=== PATIENT | female | born 1985 | race African-American/Black ===

== ENCOUNTER 2019-07-07 18:01 | Inpatient (IN) | payer OTHER ==
[~2019-07-07] VITALS: Ht 167.6 cm; Wt 68.6 kg
[~2019-07-07 18:01] MED LIST: ALBU8.5H6 INH; AMIT25TA PO; AMLO10TA8 PO; DICY10CA3 PO; GABA-585 PO; INSU100C4 SQ; INSU100V8 SQ; LEXAPRO20 MG PO; LISI-130 PO; LORA1TAB PO; NICO-479 BC; PANT40TA77 PO; POLY17PO29 PO; PROM25TA10 PO; TRAM50TA PO
[2019-07-07 18:51] LABS: BASO # 0.1 x10^3/uL (0.0-0.2); BASO % 1 % (0-3); EOS % 0 % (0-3); HEMATOCRIT 33.2 % (36.0-47.0); HEMOGLOBIN 11.3 g/dL (12.0-15.5); LYMPH # 1.3 x10^3/uL (1.0-4.8); LYMPH % 14 % (24-48); MEAN CORPUSCULAR HEMOGLOBIN 29 pg (25-35); MEAN CORPUSCULAR HGB CONC 34 g/dL (31-37); MEAN CORPUSCULAR VOLUME 86 fL (79-100); MONO # 0.3 x10^3/uL (0.0-1.1); MONO % 3 % (0-9); NEUT # 7.1 x10^3/uL (1.8-7.7); NEUT % 81 % (31-73); PLATELET COUNT 396 x10^3/uL (140-400); RED BLOOD COUNT 3.85 x10^6/uL (3.50-5.40); RED CELL DISTRIBUTION WIDTH 14.9 % (11.5-14.5); WHITE BLOOD COUNT 8.8 x10^3/uL (4.0-11.0)
[2019-07-07 18:59] LABS: PROTHROMBIN TIME PATIENT 13.3 SEC (11.7-14.0)
[2019-07-07] MEDS ORDERED: IV NORMAL SALINE 1000ML BAG 1,000 ML IV ONE ×2 (19:00→21:00)
[2019-07-07] MEDS ORDERED: PROCHLORPERAZINE 10 MG/2 ML VIAL. IV ONE (19:00)
[2019-07-07] MEDS ORDERED: fentaNYL PF VIAL 100 MCG/2 ML VIAL IV ONE (19:00)
[2019-07-07 19:02] LABS: PREG TEST PT QUAL NEGATIVE (NEG)
[2019-07-07 19:43] LABS: GASTRIC OB PAT POSITIVE (NEG)
[2019-07-07 19:52] LABS: BILIRUBIN,URINE NEGATIVE (NEG); CLARITY,URINE CLEAR; COLOR,URINE YELLOW; NITRITE,URINE NEGATIVE (NEG); PH,URINE 7.5; PROTEIN,URINE >=300 mg/dL (NEG-TRACE); UROBILINOGEN,URINE 0.2 mg/dL (0.2 mg/dL)
[2019-07-07 19:57] LABS: AMORPHOUS SEDIMENT,UR PRESENT /HPF; BACTERIA,URINE FEW /HPF (0-FEW); BARBITURATES NEG (NEG); BENZODIAZEPINES NEG (NEG); CANNABINOIDS POS (NEG); COCAINE NEG (NEG); METHADONE NEG (NEG); OPIATES NEG (NEG); PHENCYCLIDINE NEG (NEG); SQUAMOUS EPITHELIAL CELL,UR MOD /LPF
[2019-07-07 19:59] LABS: CALCIUM 9.3 mg/dL (8.5-10.1); CREATININE 4.1 mg/dL (0.6-1.0); GFR 15.4; POTASSIUM 4.4 mmol/L (3.5-5.1)
[2019-07-07 20:00] LABS: AMPHETAMINE/METHAMPHETAMINE NEG (NEG)
[2019-07-07 20:01] LABS: HYALINE CASTS, URINE OCCASIONAL /HPF
[2019-07-07 20:05] LABS: ALBUMIN 3.8 g/dL (3.4-5.0); ALBUMIN/GLOBULIN RATIO 0.8 (1.0-1.7); MAGNESIUM 1.9 mg/dL (1.8-2.4); TOTAL BILIRUBIN 0.3 mg/dL (0.2-1.0); TOTAL PROTEIN 8.7 g/dL (6.4-8.2)
--- NOTE | 2019-07-07 20:10 | PHYS DOC ---
Past Medical History Past Medical History: Diabetes-Type I, Hypertension, Kidney Infection, Other Additional Past Medical Histor: GASTROPERESIS Past Surgical History: Cholecystectomy Alcohol Use: None Drug Use: None Adult General Chief Complaint Chief Complaint: FLANK PAIN HPI HPI Patient is a 33 year old AA female who presents to the emergency department via EMS with complaints of diffuse abdominal pain, nausea, vomiting and diarrhea for the last 2 days. Patient states that symptoms increased this morning. Reports that she has had at least 2 episodes of vomiting today and she has had one e pisode of diarrhea without any blood today. Patient reports a history of stage IV chronic kidney disease. She denies any dysuria, or hematuria, she reports recent increased urinary frequency. Patient denies any fever, cough, shortness of breath, sore throat, wheezing, aches, or fatigue. Patient states that she feels dizzy with position changes but denies any syncopal episodes. She currently rates her pain a 10 out of 10 on pain scale, she denies any alleviating factors. Patient states she is not currently on dialysis. Review of Systems Review of Systems Constitutional: Denies fever or chills [] Eyes: Denies change in visual acuity, redness, or eye pain [] HENT: Denies nasal congestion or sore throat [] Respiratory: Denies cough or shortness of breath [] Cardiovascular: No additional information not addressed in HPI [] GI: See history of present illness : Denies dysuria or hematuria; see history of present illness [] Musculoskeletal: Denies back pain or joint pain [] Integument: Denies rash or skin lesions [] Neurologic: Denies headache, focal weakness or sensory changes [] Complete systems were reviewed and found to be within normal limits, except as documented in this note. Current Medications Current Medications Current Medications Medications (Trade) Dose Ordered Sig/Brown Start Time Stop Time Status Last Admin Dose Admin Fentanyl Citrate (Fentanyl 2ml Vial) 50 mcg 1X ONCE 07/07/19 19:00 07/07/19 19:01 DC 07/07/19 18:48 50 MCG Lorazepam (Ativan Inj) 1 mg 1X ONCE 07/07/19 19:00 07/07/19 19:01 DC 07/07/19 18:50 1 MG Prochlorperazine Edisylate (Compazine) 10 mg 1X ONCE 07/07/19 19:00 07/07/19 19:01 DC 07/07/19 18:50 10 MG Sodium Chloride 1,000 ml @ 1,000 mls/hr 1X ONCE 07/07/19 19:00 07/07/19 19:59 DC 07/07/19 18:47 1,000 MLS/HR Allergies Allergies Physical Exam Physical Exam Constitutional: Well developed, well nourished, moaning and yelling at staff, ill appearance. [] HENT: Normocephalic, atraumatic, bilateral external ears normal, oropharynx dry, no oral exudates, nose normal. [] Eyes: PERRLA, EOMI, conjunctiva normal, no discharge. [] Neck: Normal range of motion, no stridor. [] Cardiovascular:Heart rate regular rhythm, Lungs & Thorax: Bilateral breath sounds clear to auscultation [] Abdomen: Bowel sounds normal, soft, no rebound tenderness, no masses, no pulsatile masses. [] Skin: Warm, dry, no erythema, no rash. [] Back: Bilateral CVA tenderness. [] Extremities: No cyanosis, no clubbing, ROM intact, no edema. [] Neurologic: Alert and oriented X 3, no focal deficits noted. [] Psychologic: Affect agitated, judgement normal Current Patient Data Vital Signs Vital Signs Date Time Temp Pulse Resp B/P (MAP) Pulse Ox O2 Delivery O2 Flow Rate FiO2 07/07/19 20:06 91 220/100 (140) 97 07/07/19 18:48 30 Room Air 07/07/19 18:03 98.0 98.0 Lab Values Laboratory Tests Test 07/07/19 18:33 07/07/19 19:00 07/07/19 19:35 07/07/19 19:40 White Blood Count 8.8 x10^3/uL (4.0-11.0) Red Blood Count 3.85 x10^6/uL (3.50-5.40) Hemoglobin 11.3 g/dL (12.0-15.5) L Hematocrit 33.2 % (36.0-47.0) L Mean Corpuscular Volume 86 fL (79-100) Mean Corpuscular Hemoglobin 29 pg (25-35) Mean Corpuscular Hemoglobin Concent 34 g/dL (31-37) Red Cell Distribution Width 14.9 % (11.5-14.5) H Platelet Count 396 x10^3/uL (140-400) Neutrophils (%) (Auto) 81 % (31-73) H Lymphocytes (%) (Auto) 14 % (24-48) L Monocytes (%) (Auto) 3 % (0-9) Eosinophils (%) (Auto) 0 % (0-3) Basophils (%) (Auto) 1 % (0-3) Neutrophils # (Auto) 7.1 x10^3/uL (1.8-7.7) Lymphocytes # (Auto) 1.3 x10^3/uL (1.0-4.8) Monocytes # (Auto) 0.3 x10^3/uL (0.0-1.1) Eosinophils # (Auto) 0.0 x10^3/uL (0.0-0.7) Basophils # (Auto) 0.1 x10^3/uL (0.0-0.2) Prothrombin Time 13.3 SEC (11.7-14.0) Prothrombin Time INR 1.0 (0.8-1.1) Activated Partial Thromboplast Time 35 SEC (24-38) Lactic Acid Level 2.1 mmol/L (0.4-2.0) H Serum Test, Qualitative Negative (NEG) Gastric Fluid Occult Blood Positive (NEG) Sodium Level 142 mmol/L (136-145) Potassium Level 4.4 mmol/L (3.5-5.1) Chloride Level 105 mmol/L (98-107) Carbon Dioxide Level 23 mmol/L (21-32) Anion Gap 14 (6-14) Blood Urea Nitrogen 23 mg/dL (7-20) H Creatinine 4.1 mg/dL (0.6-1.0) H Estimated GFR (Cockcroft-Gault) 15.4 BUN/Creatinine Ratio 6 (6-20) Glucose Level 266 mg/dL (70-99) H Calcium Level 9.3 mg/dL (8.5-10.1) Magnesium Level 1.9 mg/dL (1.8-2.4) Total Bilirubin 0.3 mg/dL (0.2-1.0) Aspartate Amino Transferase (AST) 14 U/L (15-37) L Alanine Aminotransferase (ALT) 13 U/L (14-59) L Alkaline Phosphatase 136 U/L (46-116) H Total Protein 8.7 g/dL (6.4-8.2) H Albumin 3.8 g/dL (3.4-5.0) Albumin/Globulin Ratio 0.8 (1.0-1.7) L Urine Collection Type Unknown Urine Color Yellow Urine Clarity Clear Urine pH 7.5 Urine Specific Fisher 1.015 Urine Protein >=300 mg/dL (NEG-TRACE) Urine Glucose (UA) 250 mg/dL (NEG) Urine Ketones (Stick) Negative mg/dL (NEG) Urine Blood Trace (NEG) Urine Nitrite Negative (NEG) Urine Bilirubin Negative (NEG) Urine Urobilinogen Dipstick 0.2 mg/dL (0.2 mg/dL) Urine Leukocyte Esterase Trace (NEG) Urine RBC 6-10 /HPF (0-2) Urine WBC 5-10 /HPF (0-4) Urine Squamous Epithelial Cells Mod /LPF Urine Amorphous Sediment Present /HPF Urine Bacteria Few /HPF (0-FEW) Urine Hyaline Casts Occasional /HPF Urine Mucus Slight /LPF Urine Opiates Screen Neg (NEG) Urine Methadone Screen Neg (NEG) Urine Barbiturates Neg (NEG) Urine Phencyclidine Screen Neg (NEG) Urine Amphetamine/Methamphetamine Neg (NEG) Urine Benzodiazepines Screen Neg (NEG) Urine Cocaine Screen Neg (NEG) Urine Cannabinoids Screen Pos (NEG) Urine Ethyl Alcohol Neg (NEG) Laboratory Tests 07/07/19 18:33 Laboratory Tests 07/07/19 19:35 EKG EKG [] Radiology/Procedures Radiology/Procedures PROCEDURE: CT ABDOMEN PELVIS WO CONTRAST PQRS Compliance statement: One or more of the following individualized dose reduction techniques were utilized for this examination: 1. Automated exposure control. 2. Adjustment of the mA and/or kV according to patient size. 3. Use of iterative reconstruction technique. Indication:Abdominal pain. TECHNIQUE: CT abdomen and pelvis without IV contrast with multiplanar reformats. COMPARISON: 02/04/2013 FINDINGS: Limited evaluation of solid abdominal and pelvic organs due to lack of IV contrast. Heart is normal in size. No pericardial or pleural effusion. Clear lung bases. Noncontrast appearance of the liver, spleen, pancreas, right adrenal within normal limits. Status post cholecystectomy. 3.3 x 2.0 cm nodule is seen in the left adrenal gland, previously 2.5 x 1.2 cm. No nephrolithiasis or hydronephrosis. No free pelvic fluid or ascites. No enlarged retroperitoneal or pelvic adenopathy. Uterus is present. Urinary bladder demonstrates no radiopaque stones. Circumferential wall thickening of the urinary bladder noted. No bowel obstruction. Normal appendix. No pneumoperitoneum. No suspicious bony lesion. IMPRESSION: Limited evaluation of solid abdominal and pelvic organs due to lack of IV contrast. 1. No nephrolithiasis or hydronephrosis. 2. Left adrenal gland nodule increase in size from previous exam from 2013 likely adenoma. Nonemergent MRI of the abdomen recommended. 3. Normal appendix. 4. Circumferential urinary bladder wall thickening may be secondary to subacute distention or cystitis. Clinically correlate with urinalysis. [] Course & Med Decision Making Course & Med Decision Making Pertinent Labs and Imaging studies reviewed. (See chart for details) dx:ESRD, vomiting CBC: hgb 11.3, Hct 33.2 otherwise unremarkable, CMP BUN 23, [place] 4.1, glucose 266, lactic acid 2.1, alk phos 136, lactic acid 2.1; PT/INR WNL, UA 6-10 RBC, 5- 10 WBC, moderate squamous cells, few bacteria, most likely contaminated. Gastric contents positive for blood CT abd/pelvis no acute findings. 2007 Spoke with who is the admitting physician, and care was assumed following discussion of patient. Patient's vital signs stable. Patient remains afebrile, appears nontoxic, respirations even and unlabored. Patient will be admitted to the med/tele floor. Patient's case and plan of care also discussed with Dr. David [] Rebecca Disclaimer Dragmarti Disclaimer This electronic medical record was generated, in whole or in part, using a voice recognition dictation system. Departure Departure Impression: Primary Impression: End stage renal disease Additional Impression: Vomiting Disposition: ADMITTED INPATIENT Admitting Physician: KIRBY (Hair) Referrals: YESENIA SIMS MD (PCP) Problem Qualifiers Additional Impression: Vomiting Vomiting type: unspecified Vomiting Intractability: non-intractable Nausea presence: with nausea Qualified Codes: R11.2 - Nausea with vomiting, unspecified BEENA DUNN [employer]MER Jul 07, 2019 20:10
[2019-07-07] MEDS ORDERED: PANTOPRAZOLE IV PUSH 40 MG VIAL. IVP ONE (20:30)
[2019-07-07] MEDS ORDERED: hydrALAZINE 20 MG/ML VIAL. IVP ONE (20:30)
--- NOTE | 2019-07-07 20:50 | RAD ---
PQRS Compliance statement: One or more of the following individualized dose reduction techniques were utilized for this examination: 1. Automated exposure control. 2. Adjustment of the mA and/or kV according to patient size. 3. Use of iterative reconstruction technique. Indication:Abdominal pain. TECHNIQUE: CT abdomen and pelvis without IV contrast with multiplanar reformats. COMPARISON: 02/04/2013 FINDINGS: Limited evaluation of solid abdominal and pelvic organs due to lack of IV contrast. Heart is normal in size. No pericardial or pleural effusion. Clear lung bases. Noncontrast appearance of the liver, spleen, pancreas, right adrenal within normal limits. Status post cholecystectomy. 3.3 x 2.0 cm nodule is seen in the left adrenal gland, previously 2.5 x 1.2 cm. No nephrolithiasis or hydronephrosis. No free pelvic fluid or ascites. No enlarged retroperitoneal or pelvic adenopathy. Uterus is present. Urinary bladder demonstrates no radiopaque stones. Circumferential wall thickening of the urinary bladder noted. No bowel obstruction. Normal appendix. No pneumoperitoneum. No suspicious bony lesion. IMPRESSION: Limited evaluation of solid abdominal and pelvic organs due to lack of IV contrast. 1. No nephrolithiasis or hydronephrosis. 2. Left adrenal gland nodule increase in size from previous exam from 2013 likely adenoma. Nonemergent MRI of the abdomen recommended. 3. Normal appendix. 4. Circumferential urinary bladder wall thickening may be secondary to subacute distention or cystitis. Clinically correlate with urinalysis. Electronically signed by: Jonn Damian DO (07/07/2019 8:47 PM) [facility]
[2019-07-07 21:35] VITALS: BP 160/106
[2019-07-07] MEDS ORDERED: ONDANSETRON PF 4 MG/2 ML VIAL. IV PRN (22:15)
[2019-07-07] MEDS: fentaNYL PF VIAL 100 MCG/2 ML VIAL IVP PRN (23:35)
[2019-07-08] VITALS (7 sets, daily range): BP systolic 142–207; BP diastolic 84–123
[2019-07-08] MEDS ORDERED: CARV25TA2 PO (03:29)
[2019-07-08] MEDS ORDERED: HYDR-2869 PO (03:29)
[2019-07-08] MEDS: fentaNYL PF VIAL 100 MCG/2 ML VIAL IVP PRN ×4 (03:35→17:24)
[2019-07-08] MEDS ORDERED: DEXTROSE 50% 25 GM / 50ML DISP.SYRIN. IV PRN (04:00)
[2019-07-08] MEDS: PROCHLORPERAZINE 10 MG/2 ML VIAL. IV PRN ×2 (04:30→08:25)
[2019-07-08] MEDS: CARVEDILOL 12.5 MG TABLET. PO SCH ×2 (08:26→17:25)
[2019-07-08] MEDS: INSULIN LISPRO 300 UNITS/3 ML VIAL. SQ SCH ×5 (08:40→19:24)
--- NOTE | 2019-07-08 12:02 | PDOC1 ---
History and Physical Date of Admission Date of Admission DATE: 07/08/19 TIME: 11:57 Identification/Chief Complaint Chief Complaint seen in er , 33 year old AA female who presents to the emergency department via EMS with complaints of diffuse abdominal pain, nausea, vomiting and diarrhea for the last 2 days. Patient states that symptoms increased 11 . Reports that she has had at least 2 episodes of vomiting and she has had one episode of diarrhea without any blood . Patient reports a history of stage IV chronic kidney disease. She denies any dysuria, or hematuria, she reports recent increased urinary frequency. Patient denies any fever, cough, shortness of breath, sore throat, wheezing, aches, or fatigue. Patient states that she feels dizzy with position changes but denies any syncopal episodes. FOLLOWED BY NEPHROLOGY AT [facility], LAST APPT AUG 2018 she thinks, she does not know baseline cr Past Medical History Past Medical History Past Medical History Past Medical History Past Medical History: Diabetes-Type I, Hypertension, Kidney Infection, Other Additional Past Medical Histor: GASTROPARESIS Past Surgical History: Cholecystectomy Alcohol Use: None Drug Use: None HAS HAD DIABETES SINCE CHILDHOOD Cardiovascular: HTN Psych: Addictions Renal/: Chronic renal failure Family History Family History: Hypertension Social History Smoke: No ALCOHOL: none Drugs: Marijuana Current Problem List Problem List Problems Medical Problems: (1) End stage renal disease Status: Acute (2) Vomiting Status: Acute Current Medications Current Medications Current Medications Sodium Chloride 1,000 ml @ 1,000 mls/hr 1X ONCE IV Last administered on 07/07/19at 18:47; Start 07/07/19 at 19:00; Stop 07/07/19 at 19:59; Status DC Prochlorperazine Edisylate (Compazine) 10 mg 1X ONCE IV Last administered on 07/07/19 18:50; Start 07/07/19 at 19:00; Stop 07/07/19 at 19:01; Status DC Fentanyl Citrate (Fentanyl 2ml Vial) 50 mcg 1X ONCE IV Last administered on 07/07/19 18:48; Start 07/07/19 at 19:00; Stop 07/07/19 at 19:01; Status DC Lorazepam (Ativan Inj) 1 mg 1X ONCE IV Last administered on 07/07/19 18:50; Start 07/07/19 at 19:00; Stop 07/07/19 at 19:01; Status DC Pantoprazole Sodium (PROTONIX VIAL for IV PUSH) 40 mg 1X ONCE IVP Last administered on 07/07/19 20:10; Start 07/07/19 at 20:30; Stop 07/07/19 at 20:31; Status DC Sodium Chloride 1,000 ml @ 1,000 mls/hr 1X ONCE IV Last administered on 07/07/19at 20:11; Start 07/07/19 at 21:00; Stop 07/07/19 at 21:59; Status DC Hydralazine HCl (Apresoline Inj) 10 mg 1X ONCE IVP Last administered on 07/07/19 20:40; Start 07/07/19 at 20:30; Stop 07/07/19 at 20:31; Status DC Ondansetron HCl (Zofran) 4 mg PRN Q8HRS PRN IV NAUSEA/VOMITING 1ST CHOICE; Start 07/07/19 at 22:15; Stop 07/08/19 at 22:14; Status Cancel Fentanyl Citrate (Fentanyl 2ml Vial) 50 mcg PRN Q4HRS PRN IVP SEVERE PAIN 7-10 Last administered on 07/08/19 08:25; Start 07/07/19 at 22:45 Prochlorperazine Edisylate (Compazine) 10 mg PRN Q6HRS PRN IV NAUSEA/VOMITING 1ST CHOICE Last administered on 07/08/19 08:25; Start 07/08/19 at 03:30 Insulin Human Lispro (HumaLOG) 0-5 UNITS TIDWMEALS SQ Last administered on 07/08/19at 08:40; Start 07/08/19 at 08:00 Dextrose (Dextrose 50%-Water Syringe) 12.5 gm PRN Q15MIN PRN IV SEE COMMENTS; Start 07/08/19 at 04:00 Hydralazine HCl (Apresoline) 50 mg TID PO Last administered on 07/08/19 08:26; Start 07/08/19 at 09:00 Carvedilol (Coreg) 25 mg BIDWMEALS PO Last administered on 07/08/19 08:26; Start 07/08/19 at 09:00 Active Scripts Active Reported Hydralazine Hcl 50 Mg Tablet 1 Tab PO TID Carvedilol 25 Mg Tablet 25 Mg PO BIDWMEALS Promethazine Hcl 25 Mg Tablet 1 Tab PO PRN Q6HRS Miralax (Polyethylene Glycol 3350) 17 Gm Powd.pack 1 Packet PO BID Lantus (Insulin Glargine,Hum.rec.anlog) 100 Unit/1 Ml Vial 25 Unit SQ QHS Novolog (Insulin Aspart) 100 Unit/1 Ml Cartridge 4 Unit SQ TID Lexapro (Escitalopram Oxalate) 20 Mg Tablet 1 Tab PO DAILY Tramadol Hcl 50 Mg Tablet 1 Tab PO PRN Q6HRS Pantoprazole Sodium (Pantoprazole Sodium) 40 Mg Tablet.dr 1 Tab PO DAILY Dicyclomine Hcl 10 Mg Capsule 1 Cap PO TID Allergies Allergies: Coded Allergies: ondansetron (Unverified Allergy, Severe, edema, 07/07/19) ketorolac (Unverified Allergy, Intermediate, hives, 07/07/19) morphine (Unverified Allergy, Intermediate, hives, 07/07/19) ROS Review of System Review of Systems Review of Systems Constitutional: Denies fever or chills [] Eyes: Denies change in visual acuity, redness, or eye pain [] HENT: Denies nasal congestion or sore throat [] Respiratory: Denies cough or shortness of breath [] Cardiovascular: No additional information not addressed in HPI [] GI: See history of present illness : Denies dysuria or hematuria; see history of present illness [] Musculoskeletal: Denies back pain or joint pain [] Integument: Denies rash or skin lesions [] Neurologic: Denies headache, focal weakness or sensory changes [] 14 pt systems were reviewed and found to be within normal limits, except as documented Hematological and Lymphatic: No: Bleeding Problems, Blood Clots, Blood Transfusions, Brusing, Night Sweats, Pallor, Swollen Lymph Nodes, Other Respiratory: No: Cough, Hemoptysis, Orthopnea, Pleuritic Pain, Shortness of breath, SOB with excertion, Sputum Changes, Stridor, Tachypnea, Wheezing, Other Gastrointestinal: Yes Nausea, Yes Vomiting, Yes Abdominal Pain Physical Exam Physical Exam Physical Exam Physical Exam Constitutional: Well developed, well nourished, HENT: Normocephalic, atraumatic, bilateral external ears normal, oropharynx dry, no oral exudates, nose normal. [] Eyes: PERRLA, EOMI, conjunctiva normal, no discharge. [] Neck: Normal range of motion, no stridor. [] Cardiovascular:Heart rate regular rhythm, Lungs & Thorax: Bilateral breath sounds clear to auscultation [] Abdomen: Bowel sounds normal, soft, no rebound tenderness, no masses, no pulsatile masses. [] Skin: Warm, dry, no erythema, no rash. [] Back: Bilateral CVA tenderness. [] Extremities: No cyanosis, no clubbing, ROM intact, no edema. [] Neurologic: Alert and oriented X 3, no focal deficits noted. [] Psychologic: Affect anxious General: Alert, Oriented X3, No acute distress HEENT: Atraumatic Lungs: Clear to auscultation Heart: RRR, no murmurs Breasts: Not examined Abdomen: Normal bowel sounds, Soft Rectal Exam: not examined PELVIC: Examination not indicated Extremities: No cyanosis Neuro: Normal speech, Cranial nerves 3-12 NL Vitals Vitals Vital Signs Date Time Temp Pulse Resp B/P (MAP) Pulse Ox O2 Delivery O2 Flow Rate FiO2 07/08/19 11:33 98.5 114 17 163/92 (115) 98 Room Air 98.5 Labs Labs Laboratory Tests Test 07/07/19 18:33 07/07/19 19:00 07/07/19 19:35 07/07/19 19:40 White Blood Count 8.8 x10^3/uL (4.0-11.0) Red Blood Count 3.85 x10^6/uL (3.50-5.40) Hemoglobin 11.3 g/dL (12.0-15.5) Hematocrit 33.2 % (36.0-47.0) Mean Corpuscular Volume 86 fL (79-100) Mean Corpuscular Hemoglobin 29 pg (25-35) Mean Corpuscular Hemoglobin Concent 34 g/dL (31-37) Red Cell Distribution Width 14.9 % (11.5-14.5) Platelet Count 396 x10^3/uL (140-400) Neutrophils (%) (Auto) 81 % (31-73) Lymphocytes (%) (Auto) 14 % (24-48) Monocytes (%) (Auto) 3 % (0-9) Eosinophils (%) (Auto) 0 % (0-3) Basophils (%) (Auto) 1 % (0-3) Neutrophils # (Auto) 7.1 x10^3/uL (1.8-7.7) Lymphocytes # (Auto) 1.3 x10^3/uL (1.0-4.8) Monocytes # (Auto) 0.3 x10^3/uL (0.0-1.1) Eosinophils # (Auto) 0.0 x10^3/uL (0.0-0.7) Basophils # (Auto) 0.1 x10^3/uL (0.0-0.2) Prothrombin Time 13.3 SEC (11.7-14.0) Prothromb Time International Ratio 1.0 (0.8-1.1) Activated Partial Thromboplast Time 35 SEC (24-38) Lactic Acid Level 2.1 mmol/L (0.4-2.0) Serum Test, Qualitative Negative (NEG) Gastric Fluid Occult Blood Positive (NEG) Sodium Level 142 mmol/L (136-145) Potassium Level 4.4 mmol/L (3.5-5.1) Chloride Level 105 mmol/L (98-107) Carbon Dioxide Level 23 mmol/L (21-32) Anion Gap 14 (6-14) Blood Urea Nitrogen 23 mg/dL (7-20) Creatinine 4.1 mg/dL (0.6-1.0) Estimated GFR (Cockcroft-Gault) 15.4 BUN/Creatinine Ratio 6 (6-20) Glucose Level 266 mg/dL (70-99) Calcium Level 9.3 mg/dL (8.5-10.1) Magnesium Level 1.9 mg/dL (1.8-2.4) Total Bilirubin 0.3 mg/dL (0.2-1.0) Aspartate Amino Transf (AST/SGOT) 14 U/L (15-37) Alanine Aminotransferase (ALT/SGPT) 13 U/L (14-59) Alkaline Phosphatase 136 U/L (46-116) Total Protein 8.7 g/dL (6.4-8.2) Albumin 3.8 g/dL (3.4-5.0) Albumin/Globulin Ratio 0.8 (1.0-1.7) Urine Collection Type Unknown Urine Color Yellow Urine Clarity Clear Urine pH 7.5 Urine Specific [place] 1.015 Urine Protein >=300 mg/dL (NEG-TRACE) Urine Glucose (UA) 250 mg/dL (NEG) Urine Ketones (Stick) Negative mg/dL (NEG) Urine Blood Trace (NEG) Urine Nitrite Negative (NEG) Urine Bilirubin Negative (NEG) Urine Urobilinogen Dipstick 0.2 mg/dL (0.2 mg/dL) Urine Leukocyte Esterase Trace (NEG) Urine RBC 6-10 /HPF (0-2) Urine WBC 5-10 /HPF (0-4) Urine Squamous Epithelial Cells Mod /LPF Urine Amorphous Sediment Present /HPF Urine Bacteria Few /HPF (0-FEW) Urine Hyaline Casts Occasional /HPF Urine Mucus Slight /LPF Urine Opiates Screen Neg (NEG) Urine Methadone Screen Neg (NEG) Urine Barbiturates Neg (NEG) Urine Phencyclidine Screen Neg (NEG) Urine Amphetamine/Methamphetamine Neg (NEG) Urine Benzodiazepines Screen Neg (NEG) Urine Cocaine Screen Neg (NEG) Urine Cannabinoids Screen Pos (NEG) Urine Ethyl Alcohol Neg (NEG) Test 07/07/19 23:00 07/08/19 08:09 07/08/19 11:47 Lactic Acid Level 0.6 mmol/L (0.4-2.0) Glucose (Fingerstick) 162 mg/dL (70-99) 91 mg/dL (70-99) Laboratory Tests Test 07/07/19 18:33 07/07/19 19:00 07/07/19 19:35 07/07/19 19:40 White Blood Count 8.8 x10^3/uL (4.0-11.0) Red Blood Count 3.85 x10^6/uL (3.50-5.40) Hemoglobin 11.3 g/dL (12.0-15.5) Hematocrit 33.2 % (36.0-47.0) Mean Corpuscular Volume 86 fL (79-100) Mean Corpuscular Hemoglobin 29 pg (25-35) Mean Corpuscular Hemoglobin Concent 34 g/dL (31-37) Red Cell Distribution Width 14.9 % (11.5-14.5) Platelet Count 396 x10^3/uL (140-400) Neutrophils (%) (Auto) 81 % (31-73) Lymphocytes (%) (Auto) 14 % (24-48) Monocytes (%) (Auto) 3 % (0-9) Eosinophils (%) (Auto) 0 % (0-3) Basophils (%) (Auto) 1 % (0-3) Neutrophils # (Auto) 7.1 x10^3/uL (1.8-7.7) Lymphocytes # (Auto) 1.3 x10^3/uL (1.0-4.8) Monocytes # (Auto) 0.3 x10^3/uL (0.0-1.1) Eosinophils # (Auto) 0.0 x10^3/uL (0.0-0.7) Basophils # (Auto) 0.1 x10^3/uL (0.0-0.2) Prothrombin Time 13.3 SEC (11.7-14.0) Prothromb Time International Ratio 1.0 (0.8-1.1) Activated Partial Thromboplast Time 35 SEC (24-38) Lactic Acid Level 2.1 mmol/L (0.4-2.0) Serum Test, Qualitative Negative (NEG) Gastric Fluid Occult Blood Positive (NEG) Sodium Level 142 mmol/L (136-145) Potassium Level 4.4 mmol/L (3.5-5.1) Chloride Level 105 mmol/L (98-107) Carbon Dioxide Level 23 mmol/L (21-32) Anion Gap 14 (6-14) Blood Urea Nitrogen 23 mg/dL (7-20) Creatinine 4.1 mg/dL (0.6-1.0) Estimated GFR (Cockcroft-Gault) 15.4 BUN/Creatinine Ratio 6 (6-20) Glucose Level 266 mg/dL (70-99) Calcium Level 9.3 mg/dL (8.5-10.1) Magnesium Level 1.9 mg/dL (1.8-2.4) Total Bilirubin 0.3 mg/dL (0.2-1.0) Aspartate Amino Transf (AST/SGOT) 14 U/L (15-37) Alanine Aminotransferase (ALT/SGPT) 13 U/L (14-59) Alkaline Phosphatase 136 U/L (46-116) Total Protein 8.7 g/dL (6.4-8.2) Albumin 3.8 g/dL (3.4-5.0) Albumin/Globulin Ratio 0.8 (1.0-1.7) Urine Collection Type Unknown Urine Color Yellow Urine Clarity Clear Urine pH 7.5 Urine Specific [place] 1.015 Urine Protein >=300 mg/dL (NEG-TRACE) Urine Glucose (UA) 250 mg/dL (NEG) Urine Ketones (Stick) Negative mg/dL (NEG) Urine Blood Trace (NEG) Urine Nitrite Negative (NEG) Urine Bilirubin Negative (NEG) Urine Urobilinogen Dipstick 0.2 mg/dL (0.2 mg/dL) Urine Leukocyte Esterase Trace (NEG) Urine RBC 6-10 /HPF (0-2) Urine WBC 5-10 /HPF (0-4) Urine Squamous Epithelial Cells Mod /LPF Urine Amorphous Sediment Present /HPF Urine Bacteria Few /HPF (0-FEW) Urine Hyaline Casts Occasional /HPF Urine Mucus Slight /LPF Urine Opiates Screen Neg (NEG) Urine Methadone Screen Neg (NEG) Urine Barbiturates Neg (NEG) Urine Phencyclidine Screen Neg (NEG) Urine Amphetamine/Methamphetamine Neg (NEG) Urine Benzodiazepines Screen Neg (NEG) Urine Cocaine Screen Neg (NEG) Urine Cannabinoids Screen Pos (NEG) Urine Ethyl Alcohol Neg (NEG) Test 07/07/19 23:00 07/08/19 08:09 07/08/19 11:47 Lactic Acid Level 0.6 mmol/L (0.4-2.0) Glucose (Fingerstick) 162 mg/dL (70-99) 91 mg/dL (70-99) Images Images SEX: F EXAM STATUS: ADM IN ORD. PHYSICIAN: BEENA DUNN APRN REASON: abd pain, flank pain PROCEDURE: CT ABDOMEN PELVIS WO CONTRAST PQRS Compliance statement: One or more of the following individualized dose reduction techniques were utilized for this examination: 1. Automated exposure control. 2. Adjustment of the mA and/or kV according to patient size. 3. Use of iterative reconstruction technique. Indication:Abdominal pain. TECHNIQUE: CT abdomen and pelvis without IV contrast with multiplanar reformats. COMPARISON: 02/04/2013 FINDINGS: Limited evaluation of solid abdominal and pelvic organs due to lack of IV contrast. Heart is normal in size. No pericardial or pleural effusion. Clear lung bases. Noncontrast appearance of the liver, spleen, pancreas, right adrenal within normal limits. Status post cholecystectomy. 3.3 x 2.0 cm nodule is seen in the left adrenal gland, previously 2.5 x 1.2 cm. No nephrolithiasis or hydronephrosis. No free pelvic fluid or ascites. No enlarged retroperitoneal or pelvic adenopathy. Uterus is present. Urinary bladder demonstrates no radiopaque stones. Circumferential wall thickening of the urinary bladder noted. No bowel obstruction. Normal appendix. No pneumoperitoneum. No suspicious bony lesion. IMPRESSION: Limited evaluation of solid abdominal and pelvic organs due to lack of IV contrast. 1. No nephrolithiasis or hydronephrosis. 2. Left adrenal gland nodule increase in size from previous exam from 2012 likely adenoma. Nonemergent MRI of the abdomen recommended. 3. Normal appendix. 4. Circumferential urinary bladder wall thickening may be secondary to subacute distention or cystitis. Clinically correlate with urinalysis. Electronically signed by: Jonn Vasquez DO (07/07/2019 8:47 PM) [facility] DICTATED and SIGNED BY: JONN VASQUEZ DO DATE: 07/07/192046 VTE Prophylaxis Ordered VTE Prophylaxis Devices: Yes VTE Pharmacological Prophylaxi: Yes Assessment/Plan Assessment/Plan IMPRESSION: 1. No nephrolithiasis or hydronephrosis. 2. Left adrenal gland nodule increase in size from previous exam from 2012 likely adenoma. 3. Normal appendix. 4. Circumferential urinary bladder wall thickening may be secondary to subacute distention or cystitis. 5. RENAL FAILURE// we NEED BASELINE LABS FROM NEPHROLOGY OFFICE 6. proteinuria 7. hypertension, accelerated likely hypertensive/ DIABETIC nephrosclerosis 8. intractable vomiting 9. diarrhea 10. thc abuse 11. possible UTI 12. HX STAGE 4 KIDNEY DISEASE 13. DIABETES 14. hx gastroparesis 15, acute volume depletion PLAN ADMIT Nephrology consult stool culture iv fluid support GI CONSULT dvt prophylaxis, heparin IV ROCEPHIN URINE CULTURE accuchecks Nonemergent MRI of the abdomen recommended. A1C 74 MIN pt exam, chart review, > 50% of time spent with exam, chart review, pt care coordination GINA PIÑA MD Jul 08, 2019 12:02
[2019-07-08] MEDS: IV NORMAL SALINE 1000ML BAG 1,000 ML IV SCH ×2 (12:24→21:41)
[2019-07-08] MEDS: PROMETHAZINE 12.5 MG TABLET. PO PRN ×2 (12:30→21:41)
[2019-07-08] MEDS: CITALOPRAM 20 MG TABLET. PO SCH (12:31)
[2019-07-08] MEDS: PANTOPRAZOLE 40 MG TABLET.DR. PO SCH (12:31)
[2019-07-08] MEDS: cefTRIAXone IV Push 1 GM VIAL. IVP SCH (12:31)
[2019-07-08] MEDS ORDERED: ACETAMINOPHEN 325 MG TABLET. PO PRN (13:00)
[2019-07-08] MEDS ORDERED: DOCUSATE SODIUM 100 MG CAPSULE. PO PRN (13:00)
[2019-07-08] MEDS ORDERED: 0.9 % SODIUM CHLORIDE 10 ML DISP.SYRIN. IV PRN (13:00)
[2019-07-08] MEDS ORDERED: ALBUTEROL SULFATE 2.5 MG/3 ML NEBU. NEB PRN (13:00)
[2019-07-08] MEDS: HEPARIN for SUB-Q USE 5,000 UNIT/ML VIAL. SQ SCH ×2 (14:11→21:39)
[2019-07-08 14:44] LABS: CREATININE 3.3 mg/dL (0.6-1.0); GFR 19.7
[2019-07-08] MEDS: cloNIDine HCL 0.1 MG TABLET PO PRN (17:25)
--- NOTE | 2019-07-08 17:59 | PDOC2 ---
CONSULT Date of Consult Date of Consult DATE: 07/08/19 TIME: 17:54 History of Present Illness Reason for Visit: This is a 33-year-old female who normally gets her healthcare at [facility]. Has a lifelong history of diabetes type 1 associated with that is stage IV kidney disease and gastroparesis. Relates episodes of nausea and vomiting in the past that have resolved. Those were related to her gastroparesis. She had an onset again of nausea and vomiting with a normal bowel pattern. Denies hematemesis melena or hematochezia. She denies significant diarrhea although initially she said she had several bowel movements at the start of this illness she does not describe them as diarrhea. She denies any fever, chills, new medications or others that are similarly ill. She tried to go to [facility] but apparently she was diverted to [facility] Past Medical History Cardiovascular: HTN GI: Other (gastroparesis) Psych: Addictions Renal/: Chronic renal failure Endocrine: Diabetes Family History Family History: Hypertension Social History No ALCOHOL: none Drugs: Marijuana Current Problem List Problem List Problems Medical Problems: (1) End stage renal disease Status: Acute (2) Vomiting Status: Acute Current Medications Current Medications Current Medications Sodium Chloride 1,000 ml @ 1,000 mls/hr 1X ONCE IV Last administered on 07/07/19at 18:47; Start 07/07/19 at 19:00; Stop 07/07/19 at 19:59; Status DC Prochlorperazine Edisylate (Compazine) 10 mg 1X ONCE IV Last administered on 07/07/19at 18:50; Start 07/07/19 at 19:00; Stop 07/07/19 at 19:01; Status DC Fentanyl Citrate (Fentanyl 2ml Vial) 50 mcg 1X ONCE IV Last administered on 07/07/19 18:48; Start 07/07/19 at 19:00; Stop 07/07/19 at 19:01; Status DC Lorazepam (Ativan Inj) 1 mg 1X ONCE IV Last administered on 07/07/19at 18:50; Start 07/07/19 at 19:00; Stop 07/07/19 at 19:01; Status DC Pantoprazole Sodium (PROTONIX VIAL for IV PUSH) 40 mg 1X ONCE IVP Last administered on 07/07/19at 20:10; Start 07/07/19 at 20:30; Stop 07/07/19 at 20:31; Status DC Sodium Chloride 1,000 ml @ 1,000 mls/hr 1X ONCE IV Last administered on 07/07/19at 20:11; Start 07/07/19 at 21:00; Stop 07/07/19 at 21:59; Status DC Hydralazine HCl (Apresoline Inj) 10 mg 1X ONCE IVP Last administered on 07/07/19at 20:40; Start 07/07/19 at 20:30; Stop 07/07/19 at 20:31; Status DC Ondansetron HCl (Zofran) 4 mg PRN Q8HRS PRN IV NAUSEA/VOMITING 1ST CHOICE; Start 07/07/19 at 22:15; Stop 07/08/19 at 22:14; Status Cancel Fentanyl Citrate (Fentanyl 2ml Vial) 50 mcg PRN Q4HRS PRN IVP SEVERE PAIN 7-10 Last administered on 07/08/19at 17:24; Start 07/07/19 at 22:45 Prochlorperazine Edisylate (Compazine) 10 mg PRN Q6HRS PRN IV NAUSEA/VOMITING 1ST CHOICE Last administered on 07/08/19 08:25; Start 07/08/19 at 03:30 Insulin Human Lispro (HumaLOG) 0-5 UNITS TIDWMEALS SQ Last administered on 07/08/19at 08:40; Start 07/08/19 at 08:00 Dextrose (Dextrose 50%-Water Syringe) 12.5 gm PRN Q15MIN PRN IV SEE COMMENTS; Start 07/08/19 at 04:00 Hydralazine HCl (Apresoline) 50 mg TID PO Last administered on 07/08/19at 14:05; Start 07/08/19 at 09:00 Carvedilol (Coreg) 25 mg BIDWMEALS PO Last administered on 07/08/19 17:25; Start 07/08/19 at 09:00 Insulin Glargine (Lantus Syringe) 25 unit QHS SQ ; Start 07/08/19 at 21:00 Pantoprazole Sodium (Protonix) 40 mg DAILY PO Last administered on 07/08/19at 12:31; Start 07/08/19 at 13:00 Polyethylene Glycol (miraLAX PACKET) 17 gm BID PO ; Start 07/08/19 at 21:00 Citalopram Hydrobromide (CeleXA) 40 mg DAILY PO Last administered on 07/08/19at 12:31; Start 07/08/19 at 13:00 Insulin Human Lispro (HumaLOG) 4 units TIDWMEALS SQ ; Start 07/08/19 at 12:05 Promethazine HCl (Phenergan) 25 mg PRN Q6HRS PRN PO NAUSEA/VOMITING Last administered on 07/08/19at 12:30; Start 07/08/19 at 12:15 Sodium Chloride 1,000 ml @ 100 mls/hr Q10H IV Last administered on 07/08/19at 12:24; Start 07/08/19 at 12:15 Heparin Sodium (Porcine) (Heparin Sodium) 5,000 unit Q8HRS SQ Last administered on 07/08/19at 14:11; Start 07/08/19 at 14:00 Ceftriaxone Sodium (Rocephin) 1 gm Q24H IVP Last administered on 07/08/19at 12:31; Start 07/08/19 at 12:30 Sodium Chloride (Normal Saline Flush) 3 ml QSHIFT PRN IV AFTER MEDS AND BLOOD DRAWS; Start 07/08/19 at 13:00 Acetaminophen (Tylenol) 650 mg PRN Q4HRS PRN PO TEMP OVER 100.4F OR MILD PAIN; Start 07/08/19 at 13:00 Clonidine HCl (Catapres) 0.1 mg PRN Q6HRS PRN PO SBP>160 OR DBP>90 Last administered on 07/08/19at 17:25; Start 07/08/19 at 13:00 Docusate Sodium (Colace) 100 mg PRN BID PRN PO HARD STOOLS; Start 07/08/19 at 13:00 Albuterol Sulfate (Ventolin Neb Soln) 2.5 mg PRN Q4HRS PRN NEB SHORTNESS OF BREATH; Start 07/08/19 at 13:00 Lorazepam (Ativan) 0.5 mg PRN Q4HRS PRN PO ANXIETY / AGITATION; Start 07/08/19 at 13:00 Lactobacillus Rhamnosus (Culturelle) 1 cap BID PO ; Start 07/08/19 at 21:00 Active Scripts Active Reported Hydralazine Hcl 50 Mg Tablet 1 Tab PO TID Carvedilol 25 Mg Tablet 25 Mg PO BIDWMEALS Promethazine Hcl 25 Mg Tablet 1 Tab PO PRN Q6HRS Miralax (Polyethylene Glycol 3350) 17 Gm Powd.pack 1 Packet PO BID Lantus (Insulin Glargine,Hum.rec.anlog) 100 Unit/1 Ml Vial 25 Unit SQ QHS Novolog (Insulin Aspart) 100 Unit/1 Ml Cartridge 4 Unit SQ TID Lexapro (Escitalopram Oxalate) 20 Mg Tablet 1 Tab PO DAILY Tramadol Hcl 50 Mg Tablet 1 Tab PO PRN Q6HRS Pantoprazole Sodium (Pantoprazole Sodium) 40 Mg Tablet.dr 1 Tab PO DAILY Dicyclomine Hcl 10 Mg Capsule 1 Cap PO TID Allergies Allergies: Coded Allergies: ondansetron (Unverified Allergy, Severe, edema, 07/07/19) ketorolac (Unverified Allergy, Intermediate, hives, 07/07/19) morphine (Unverified Allergy, Intermediate, hives, 07/07/19) Physical Exam General: Cooperative, Other (somulent, slow speech pattern) HEENT: PERRLA Lungs: Clear to auscultation Heart: Regular rate, Normal S1, Normal S2 Abdomen: Normal bowel sounds, Soft, No tenderness, No hepatosplenomegaly, No masses Extremities: No clubbing Skin: No rashes Psych/Mental Status: Mental status NL Vitals VITALS Vital Signs Date Time Temp Pulse Resp B/P (MAP) Pulse Ox O2 Delivery O2 Flow Rate FiO2 07/08/19 17:25 110 153/92 07/08/19 17:24 Room Air 07/08/19 17:13 98 07/08/19 15:49 98.7 18 98.7 Labs Labs Laboratory Tests Test 07/07/19 18:33 07/07/19 19:00 07/07/19 19:35 07/07/19 19:40 White Blood Count 8.8 x10^3/uL (4.0-11.0) Red Blood Count 3.85 x10^6/uL (3.50-5.40) Hemoglobin 11.3 g/dL (12.0-15.5) Hematocrit 33.2 % (36.0-47.0) Mean Corpuscular Volume 86 fL (79-100) Mean Corpuscular Hemoglobin 29 pg (25-35) Mean Corpuscular Hemoglobin Concent 34 g/dL (31-37) Red Cell Distribution Width 14.9 % (11.5-14.5) Platelet Count 396 x10^3/uL (140-400) Neutrophils (%) (Auto) 81 % (31-73) Lymphocytes (%) (Auto) 14 % (24-48) Monocytes (%) (Auto) 3 % (0-9) Eosinophils (%) (Auto) 0 % (0-3) Basophils (%) (Auto) 1 % (0-3) Neutrophils # (Auto) 7.1 x10^3/uL (1.8-7.7) Lymphocytes # (Auto) 1.3 x10^3/uL (1.0-4.8) Monocytes # (Auto) 0.3 x10^3/uL (0.0-1.1) Eosinophils # (Auto) 0.0 x10^3/uL (0.0-0.7) Basophils # (Auto) 0.1 x10^3/uL (0.0-0.2) Prothrombin Time 13.3 SEC (11.7-14.0) Prothromb Time International Ratio 1.0 (0.8-1.1) Activated Partial Thromboplast Time 35 SEC (24-38) Lactic Acid Level 2.1 mmol/L (0.4-2.0) Serum Test, Qualitative Negative (NEG) Gastric Fluid Occult Blood Positive (NEG) Sodium Level 142 mmol/L (136-145) Potassium Level 4.4 mmol/L (3.5-5.1) Chloride Level 105 mmol/L (98-107) Carbon Dioxide Level 23 mmol/L (21-32) Anion Gap 14 (6-14) Blood Urea Nitrogen 23 mg/dL (7-20) Creatinine 4.1 mg/dL (0.6-1.0) Estimated GFR (Cockcroft-Gault) 15.4 BUN/Creatinine Ratio 6 (6-20) Glucose Level 266 mg/dL (70-99) Calcium Level 9.3 mg/dL (8.5-10.1) Magnesium Level 1.9 mg/dL (1.8-2.4) Total Bilirubin 0.3 mg/dL (0.2-1.0) Aspartate Amino Transf (AST/SGOT) 14 U/L (15-37) Alanine Aminotransferase (ALT/SGPT) 13 U/L (14-59) Alkaline Phosphatase 136 U/L (46-116) Total Protein 8.7 g/dL (6.4-8.2) Albumin 3.8 g/dL (3.4-5.0) Albumin/Globulin Ratio 0.8 (1.0-1.7) Urine Collection Type Unknown Urine Color Yellow Urine Clarity Clear Urine pH 7.5 Urine Specific [place] 1.015 Urine Protein >=300 mg/dL (NEG-TRACE) Urine Glucose (UA) 250 mg/dL (NEG) Urine Ketones (Stick) Negative mg/dL (NEG) Urine Blood Trace (NEG) Urine Nitrite Negative (NEG) Urine Bilirubin Negative (NEG) Urine Urobilinogen Dipstick 0.2 mg/dL (0.2 mg/dL) Urine Leukocyte Esterase Trace (NEG) Urine RBC 6-10 /HPF (0-2) Urine WBC 5-10 /HPF (0-4) Urine Squamous Epithelial Cells Mod /LPF Urine Amorphous Sediment Present /HPF Urine Bacteria Few /HPF (0-FEW) Urine Hyaline Casts Occasional /HPF Urine Mucus Slight /LPF Urine Opiates Screen Neg (NEG) Urine Methadone Screen Neg (NEG) Urine Barbiturates Neg (NEG) Urine Phencyclidine Screen Neg (NEG) Urine Amphetamine/Methamphetamine Neg (NEG) Urine Benzodiazepines Screen Neg (NEG) Urine Cocaine Screen Neg (NEG) Urine Cannabinoids Screen Pos (NEG) Urine Ethyl Alcohol Neg (NEG) Test 07/07/19 23:00 07/08/19 08:09 07/08/19 11:47 07/08/19 14:20 Lactic Acid Level 0.6 mmol/L (0.4-2.0) Glucose (Fingerstick) 162 mg/dL (70-99) 91 mg/dL (70-99) Creatinine 3.3 mg/dL (0.6-1.0) Estimated GFR (Cockcroft-Gault) 19.7 Test 07/08/19 17:13 Glucose (Fingerstick) 159 mg/dL (70-99) Laboratory Tests Test 07/07/19 18:33 07/07/19 19:00 07/07/19 19:35 07/07/19 19:40 White Blood Count 8.8 x10^3/uL (4.0-11.0) Red Blood Count 3.85 x10^6/uL (3.50-5.40) Hemoglobin 11.3 g/dL (12.0-15.5) Hematocrit 33.2 % (36.0-47.0) Mean Corpuscular Volume 86 fL (79-100) Mean Corpuscular Hemoglobin 29 pg (25-35) Mean Corpuscular Hemoglobin Concent 34 g/dL (31-37) Red Cell Distribution Width 14.9 % (11.5-14.5) Platelet Count 396 x10^3/uL (140-400) Neutrophils (%) (Auto) 81 % (31-73) Lymphocytes (%) (Auto) 14 % (24-48) Monocytes (%) (Auto) 3 % (0-9) Eosinophils (%) (Auto) 0 % (0-3) Basophils (%) (Auto) 1 % (0-3) Neutrophils # (Auto) 7.1 x10^3/uL (1.8-7.7) Lymphocytes # (Auto) 1.3 x10^3/uL (1.0-4.8) Monocytes # (Auto) 0.3 x10^3/uL (0.0-1.1) Eosinophils # (Auto) 0.0 x10^3/uL (0.0-0.7) Basophils # (Auto) 0.1 x10^3/uL (0.0-0.2) Prothrombin Time 13.3 SEC (11.7-14.0) Prothromb Time International Ratio 1.0 (0.8-1.1) Activated Partial Thromboplast Time 35 SEC (24-38) Lactic Acid Level 2.1 mmol/L (0.4-2.0) Serum Test, Qualitative Negative (NEG) Gastric Fluid Occult Blood Positive (NEG) Sodium Level 142 mmol/L (136-145) Potassium Level 4.4 mmol/L (3.5-5.1) Chloride Level 105 mmol/L (98-107) Carbon Dioxide Level 23 mmol/L (21-32) Anion Gap 14 (6-14) Blood Urea Nitrogen 23 mg/dL (7-20) Creatinine 4.1 mg/dL (0.6-1.0) Estimated GFR (Cockcroft-Gault) 15.4 BUN/Creatinine Ratio 6 (6-20) Glucose Level 266 mg/dL (70-99) Calcium Level 9.3 mg/dL (8.5-10.1) Magnesium Level 1.9 mg/dL (1.8-2.4) Total Bilirubin 0.3 mg/dL (0.2-1.0) Aspartate Amino Transf (AST/SGOT) 14 U/L (15-37) Alanine Aminotransferase (ALT/SGPT) 13 U/L (14-59) Alkaline Phosphatase 136 U/L (46-116) Total Protein 8.7 g/dL (6.4-8.2) Albumin 3.8 g/dL (3.4-5.0) Albumin/Globulin Ratio 0.8 (1.0-1.7) Urine Collection Type Unknown Urine Color Yellow Urine Clarity Clear Urine pH 7.5 Urine Specific [place] 1.015 Urine Protein >=300 mg/dL (NEG-TRACE) Urine Glucose (UA) 250 mg/dL (NEG) Urine Ketones (Stick) Negative mg/dL (NEG) Urine Blood Trace (NEG) Urine Nitrite Negative (NEG) Urine Bilirubin Negative (NEG) Urine Urobilinogen Dipstick 0.2 mg/dL (0.2 mg/dL) Urine Leukocyte Esterase Trace (NEG) Urine RBC 6-10 /HPF (0-2) Urine WBC 5-10 /HPF (0-4) Urine Squamous Epithelial Cells Mod /LPF Urine Amorphous Sediment Present /HPF Urine Bacteria Few /HPF (0-FEW) Urine Hyaline Casts Occasional /HPF Urine Mucus Slight /LPF Urine Opiates Screen Neg (NEG) Urine Methadone Screen Neg (NEG) Urine Barbiturates Neg (NEG) Urine Phencyclidine Screen Neg (NEG) Urine Amphetamine/Methamphetamine Neg (NEG) Urine Benzodiazepines Screen Neg (NEG) Urine Cocaine Screen Neg (NEG) Urine Cannabinoids Screen Pos (NEG) Urine Ethyl Alcohol Neg (NEG) Test 07/07/19 23:00 07/08/19 08:09 07/08/19 11:47 07/08/19 14:20 Lactic Acid Level 0.6 mmol/L (0.4-2.0) Glucose (Fingerstick) 162 mg/dL (70-99) 91 mg/dL (70-99) Creatinine 3.3 mg/dL (0.6-1.0) Estimated GFR (Cockcroft-Gault) 19.7 Test 07/08/19 17:13 Glucose (Fingerstick) 159 mg/dL (70-99) Assessment/Plan Assessment/Plan Nausea and vomiting this week. Has a chronic history of gastroparesis, diabetes and end-stage kidney disease. Feasible that this is all related to her gastroparesis but superimposed enteritis or peptic disease could also be playing a role. Her urine drug screen was negative and her CT is otherwise negative Plan: Check stool cultures and follow labs closely Records from to determine her prior workup for proceeding on with any additional testing. Empiric antiemetics therapy would be appropriate DARIANA ZAMBRANO MD Jul 08, 2019 17:59
[2019-07-08] MEDS: traMADol 50 MG TABLET PO PRN (19:21)
[2019-07-08] MEDS: INSULIN GLARGINE SYRINGE. SQ SCH (21:00)
[2019-07-08] MEDS: POLYETHYLENE GLYCOL 3350 17 GM PACKET. PO SCH (21:19)
[2019-07-08] MEDS ORDERED: DEXTROSE ORAL GEL 15 GM TUBE. ONE (21:23)
[2019-07-08] MEDS ORDERED: DEXTROSE ORAL GEL 15 GM TUBE. PO PRN (21:30)
[2019-07-08 21:37] LABS: CREATININE 3.4 mg/dL (0.6-1.0); GFR 19.1
[2019-07-08] MEDS: LACTOBACILLUS RHAMNOSUS GG 1 CAPSULE. PO SCH (21:40)
[2019-07-08] MEDS: LORazepam 0.5 MG TABLET PO PRN (22:53)
[2019-07-09] MEDS: fentaNYL PF VIAL 100 MCG/2 ML VIAL IVP PRN ×4 (00:33→20:13)
[2019-07-09 03:50] VITALS: BP 158/93
[2019-07-09 04:53] LABS: BASO # 0.1 x10^3/uL (0.0-0.2); BASO % 1 % (0-3); EOS # 0.1 x10^3/uL (0.0-0.7); EOS % 1 % (0-3); HEMATOCRIT 25.2 % (36.0-47.0); HEMOGLOBIN 8.5 g/dL (12.0-15.5); LYMPH # 2.3 x10^3/uL (1.0-4.8); LYMPH % 39 % (24-48); MEAN CORPUSCULAR HEMOGLOBIN 29 pg (25-35); MEAN CORPUSCULAR HGB CONC 34 g/dL (31-37); MEAN CORPUSCULAR VOLUME 87 fL (79-100); MONO # 0.5 x10^3/uL (0.0-1.1); MONO % 8 % (0-9); NEUT % 51 % (31-73); PLATELET COUNT 247 x10^3/uL (140-400); WHITE BLOOD COUNT 5.9 x10^3/uL (4.0-11.0)
[2019-07-09 05:18] LABS: ALBUMIN 2.8 g/dL (3.4-5.0); ALBUMIN/GLOBULIN RATIO 0.8 (1.0-1.7); CREATININE 3.4 mg/dL (0.6-1.0); GFR 19.1; POTASSIUM 4.6 mmol/L (3.5-5.1); TOTAL BILIRUBIN 0.1 mg/dL (0.2-1.0); TOTAL PROTEIN 6.5 g/dL (6.4-8.2)
[2019-07-09] MEDS: traMADol 50 MG TABLET PO PRN ×3 (06:12→21:18)
[2019-07-09] MEDS: HEPARIN for SUB-Q USE 5,000 UNIT/ML VIAL. SQ SCH ×2 (06:16→14:01)
[2019-07-09 07:00] VITALS: BP 189/117
[2019-07-09] MEDS: INSULIN LISPRO 300 UNITS/3 ML VIAL. SQ SCH ×7 (08:00→17:19)
[2019-07-09] MEDS: PANTOPRAZOLE 40 MG TABLET.DR. PO SCH (08:47)
[2019-07-09] MEDS: LACTOBACILLUS RHAMNOSUS GG 1 CAPSULE. PO SCH ×2 (08:47→21:18)
[2019-07-09] MEDS: CITALOPRAM 20 MG TABLET. PO SCH (08:47)
[2019-07-09] MEDS: CARVEDILOL 12.5 MG TABLET. PO SCH ×2 (08:47→17:17)
[2019-07-09] MEDS: POLYETHYLENE GLYCOL 3350 17 GM PACKET. PO SCH ×2 (09:00→21:19)
[2019-07-09] MEDS: LORazepam 0.5 MG TABLET PO PRN ×2 (09:06→14:25)
--- NOTE | 2019-07-09 10:18 | PDOC ---
Subjective: Subjective: Liquid diet ordered - ate part of a sandwich her mom brought and a Sonic drink. No n/v. Left-sided abd pain wrapping to flank - worse w/ movement. Hasn't stooled in a week, usually takes Linzess. 'Scopes and GES at . Used to take pantoprazole and something else before , never restarted. Denies bleeding. Would like to avoid "special IV" since feeling better. Objective: Objective: Refused Miralax. Vital Signs: Vital Signs Date Time Temp Pulse Resp B/P (MAP) Pulse Ox O2 Delivery O2 Flow Rate FiO2 07/09/19 08:47 77 189/117 07/09/19 08:00 Room Air 07/09/19 07:12 18 98 07/09/19 07:00 97.8 97.8 Labs: Laboratory Tests Test 07/08/19 11:47 07/08/19 14:20 07/08/19 17:13 07/08/19 20:55 Glucose (Fingerstick) 91 mg/dL 159 mg/dL Creatinine 3.3 mg/dL 3.4 mg/dL Estimated GFR (Cockcroft-Gault) 19.7 19.1 Glucose Level 53 mg/dL Test 07/08/19 21:19 07/08/19 21:38 07/09/19 02:57 07/09/19 04:05 Glucose (Fingerstick) 42 mg/dL 106 mg/dL 230 mg/dL White Blood Count 5.9 x10^3/uL Red Blood Count 2.90 x10^6/uL Hemoglobin 8.5 g/dL Hematocrit 25.2 % Mean Corpuscular Volume 87 fL Mean Corpuscular Hemoglobin 29 pg Mean Corpuscular Hemoglobin Concent 34 g/dL Red Cell Distribution Width 15.0 % Platelet Count 247 x10^3/uL Neutrophils (%) (Auto) 51 % Lymphocytes (%) (Auto) 39 % Monocytes (%) (Auto) 8 % Eosinophils (%) (Auto) 1 % Basophils (%) (Auto) 1 % Neutrophils # (Auto) 3.0 x10^3/uL Lymphocytes # (Auto) 2.3 x10^3/uL Monocytes # (Auto) 0.5 x10^3/uL Eosinophils # (Auto) 0.1 x10^3/uL Basophils # (Auto) 0.1 x10^3/uL Sodium Level 136 mmol/L Potassium Level 4.6 mmol/L Chloride Level 104 mmol/L Carbon Dioxide Level 23 mmol/L Anion Gap 9 Blood Urea Nitrogen 20 mg/dL Creatinine 3.4 mg/dL Estimated GFR (Cockcroft-Gault) 19.1 BUN/Creatinine Ratio 6 Glucose Level 229 mg/dL Calcium Level 8.0 mg/dL Total Bilirubin 0.1 mg/dL Aspartate Amino Transf (AST/SGOT) 11 U/L Alanine Aminotransferase (ALT/SGPT) 9 U/L Alkaline Phosphatase 103 U/L Total Protein 6.5 g/dL Albumin 2.8 g/dL Albumin/Globulin Ratio 0.8 Test 07/09/19 07:53 Glucose (Fingerstick) 146 mg/dL PE: GEN: NAD - talking on cell phone to her mom who is caring for her daughter LUNGS: CTAB HEART: RRR ABD: soft, vaguely tender LUQ - ?MSK NEURO/PSYCH: A & O 3 A/P: N/v - resolved, +gastric occult Gastroparesis H/o constipation S/p cholecystectomy +cannabinoids HTN, CKD, DM Anemia -- Agree w/ PPI. Apparently self-advanced diet and is tolerating, will adjust hospital diet. Linzess not available here - will add Amitiza (though she has declined Miralax). Check anemia parameters for completeness. Will check if any records from [facility] received. BP 189/117 - defer to primary. JANICE JACOBO Jul 09, 2019 10:17
--- NOTE | 2019-07-09 10:33 | PDOC ---
PROGRESS NOTES History of Present Illness History of Present Illness Assessment/Plan Assessment/Plan IMPRESSION: 1. No nephrolithiasis or hydronephrosis. 2. Left adrenal gland nodule increase in size from previous exam from 2013 likely adenoma. 3. Normal appendix. 4. Circumferential urinary bladder wall thickening may be secondary to subacute distention or cystitis. 5. RENAL FAILURE// we NEED BASELINE LABS FROM NEPHROLOGY OFFICE 6. proteinuria 7. hypertension, accelerated likely hypertensive/ DIABETIC nephrosclerosis 8. intractable vomiting 9. diarrhea 10. thc abuse 11. possible UTI 12. HX STAGE 4 KIDNEY DISEASE cr down to 3.4 13. DIABETES 14. hx gastroparesis 15, acute volume depletion PLAN ADMIT Nephrology consult stool culture iv fluid support GI following dvt prophylaxis, heparin IV ROCEPHIN URINE CULTURE accuchecks Nonemergent MRI of the abdomen recommended. A1C 37 MIN pt exam, chart review, > 50% of time spent with exam, chart review, pt care coordination Vitals Vitals Vital Signs Date Time Temp Pulse Resp B/P (MAP) Pulse Ox O2 Delivery O2 Flow Rate FiO2 07/09/19 08:47 77 189/117 07/09/19 08:00 Room Air 07/09/19 07:12 18 98 07/09/19 07:00 97.8 97.8 Physical Exam General: Alert, Oriented X3, Cooperative, No acute distress, Other (somulent, slow speech pattern) Heart: Regular rate, Normal S1, Normal S2 Abdomen: Normal bowel sounds, Soft, No tenderness, No hepatosplenomegaly, No masses Extremities: No clubbing Skin: No rashes Labs LABS Laboratory Tests Test 07/08/19 11:47 07/08/19 14:20 07/08/19 17:13 07/08/19 20:55 Glucose (Fingerstick) 91 mg/dL (70-99) 159 mg/dL (70-99) Creatinine 3.3 mg/dL (0.6-1.0) 3.4 mg/dL (0.6-1.0) Estimated GFR (Cockcroft-Gault) 19.7 19.1 Glucose Level 53 mg/dL (70-99) Test 07/08/19 21:19 07/08/19 21:38 07/09/19 02:57 07/09/19 04:05 Glucose (Fingerstick) 42 mg/dL (70-99) 106 mg/dL (70-99) 230 mg/dL (70-99) White Blood Count 5.9 x10^3/uL (4.0-11.0) Red Blood Count 2.90 x10^6/uL (3.50-5.40) Hemoglobin 8.5 g/dL (12.0-15.5) Hematocrit 25.2 % (36.0-47.0) Mean Corpuscular Volume 87 fL (79-100) Mean Corpuscular Hemoglobin 29 pg (25-35) Mean Corpuscular Hemoglobin Concent 34 g/dL (31-37) Red Cell Distribution Width 15.0 % (11.5-14.5) Platelet Count 247 x10^3/uL (140-400) Neutrophils (%) (Auto) 51 % (31-73) Lymphocytes (%) (Auto) 39 % (24-48) Monocytes (%) (Auto) 8 % (0-9) Eosinophils (%) (Auto) 1 % (0-3) Basophils (%) (Auto) 1 % (0-3) Neutrophils # (Auto) 3.0 x10^3/uL (1.8-7.7) Lymphocytes # (Auto) 2.3 x10^3/uL (1.0-4.8) Monocytes # (Auto) 0.5 x10^3/uL (0.0-1.1) Eosinophils # (Auto) 0.1 x10^3/uL (0.0-0.7) Basophils # (Auto) 0.1 x10^3/uL (0.0-0.2) Sodium Level 136 mmol/L (136-145) Potassium Level 4.6 mmol/L (3.5-5.1) Chloride Level 104 mmol/L (98-107) Carbon Dioxide Level 23 mmol/L (21-32) Anion Gap 9 (6-14) Blood Urea Nitrogen 20 mg/dL (7-20) Creatinine 3.4 mg/dL (0.6-1.0) Estimated GFR (Cockcroft-Gault) 19.1 BUN/Creatinine Ratio 6 (6-20) Glucose Level 229 mg/dL (70-99) Calcium Level 8.0 mg/dL (8.5-10.1) Total Bilirubin 0.1 mg/dL (0.2-1.0) Aspartate Amino Transf (AST/SGOT) 11 U/L (15-37) Alanine Aminotransferase (ALT/SGPT) 9 U/L (14-59) Alkaline Phosphatase 103 U/L (46-116) Total Protein 6.5 g/dL (6.4-8.2) Albumin 2.8 g/dL (3.4-5.0) Albumin/Globulin Ratio 0.8 (1.0-1.7) Test 07/09/19 07:53 Glucose (Fingerstick) 146 mg/dL (70-99) Assessment and Plan Assessmemt and Plan Problems Medical Problems: (1) End stage renal disease Status: Acute (2) Vomiting Status: Acute Comment Review of Relevant I have reviewed the following items mine (where applicable) has been applied. Labs Laboratory Tests Test 07/07/19 18:33 07/07/19 19:00 07/07/19 19:35 07/07/19 19:40 White Blood Count 8.8 x10^3/uL (4.0-11.0) Red Blood Count 3.85 x10^6/uL (3.50-5.40) Hemoglobin 11.3 g/dL (12.0-15.5) Hematocrit 33.2 % (36.0-47.0) Mean Corpuscular Volume 86 fL (79-100) Mean Corpuscular Hemoglobin 29 pg (25-35) Mean Corpuscular Hemoglobin Concent 34 g/dL (31-37) Red Cell Distribution Width 14.9 % (11.5-14.5) Platelet Count 396 x10^3/uL (140-400) Neutrophils (%) (Auto) 81 % (31-73) Lymphocytes (%) (Auto) 14 % (24-48) Monocytes (%) (Auto) 3 % (0-9) Eosinophils (%) (Auto) 0 % (0-3) Basophils (%) (Auto) 1 % (0-3) Neutrophils # (Auto) 7.1 x10^3/uL (1.8-7.7) Lymphocytes # (Auto) 1.3 x10^3/uL (1.0-4.8) Monocytes # (Auto) 0.3 x10^3/uL (0.0-1.1) Eosinophils # (Auto) 0.0 x10^3/uL (0.0-0.7) Basophils # (Auto) 0.1 x10^3/uL (0.0-0.2) Prothrombin Time 13.3 SEC (11.7-14.0) Prothromb Time International Ratio 1.0 (0.8-1.1) Activated Partial Thromboplast Time 35 SEC (24-38) Lactic Acid Level 2.1 mmol/L (0.4-2.0) Serum Test, Qualitative Negative (NEG) Gastric Fluid Occult Blood Positive (NEG) Sodium Level 142 mmol/L (136-145) Potassium Level 4.4 mmol/L (3.5-5.1) Chloride Level 105 mmol/L (98-107) Carbon Dioxide Level 23 mmol/L (21-32) Anion Gap 14 (6-14) Blood Urea Nitrogen 23 mg/dL (7-20) Creatinine 4.1 mg/dL (0.6-1.0) Estimated GFR (Cockcroft-Gault) 15.4 BUN/Creatinine Ratio 6 (6-20) Glucose Level 266 mg/dL (70-99) Calcium Level 9.3 mg/dL (8.5-10.1) Magnesium Level 1.9 mg/dL (1.8-2.4) Total Bilirubin 0.3 mg/dL (0.2-1.0) Aspartate Amino Transf (AST/SGOT) 14 U/L (15-37) Alanine Aminotransferase (ALT/SGPT) 13 U/L (14-59) Alkaline Phosphatase 136 U/L (46-116) Total Protein 8.7 g/dL (6.4-8.2) Albumin 3.8 g/dL (3.4-5.0) Albumin/Globulin Ratio 0.8 (1.0-1.7) Urine Collection Type Unknown Urine Color Yellow Urine Clarity Clear Urine pH 7.5 Urine Specific [place] 1.015 Urine Protein >=300 mg/dL (NEG-TRACE) Urine Glucose (UA) 250 mg/dL (NEG) Urine Ketones (Stick) Negative mg/dL (NEG) Urine Blood Trace (NEG) Urine Nitrite Negative (NEG) Urine Bilirubin Negative (NEG) Urine Urobilinogen Dipstick 0.2 mg/dL (0.2 mg/dL) Urine Leukocyte Esterase Trace (NEG) Urine RBC 6-10 /HPF (0-2) Urine WBC 5-10 /HPF (0-4) Urine Squamous Epithelial Cells Mod /LPF Urine Amorphous Sediment Present /HPF Urine Bacteria Few /HPF (0-FEW) Urine Hyaline Casts Occasional /HPF Urine Mucus Slight /LPF Urine Opiates Screen Neg (NEG) Urine Methadone Screen Neg (NEG) Urine Barbiturates Neg (NEG) Urine Phencyclidine Screen Neg (NEG) Urine Amphetamine/Methamphetamine Neg (NEG) Urine Benzodiazepines Screen Neg (NEG) Urine Cocaine Screen Neg (NEG) Urine Cannabinoids Screen Pos (NEG) Urine Ethyl Alcohol Neg (NEG) Test 07/07/19 23:00 07/08/19 08:09 07/08/19 11:47 07/08/19 14:20 Lactic Acid Level 0.6 mmol/L (0.4-2.0) Glucose (Fingerstick) 162 mg/dL (70-99) 91 mg/dL (70-99) Creatinine 3.3 mg/dL (0.6-1.0) Estimated GFR (Cockcroft-Gault) 19.7 Test 07/08/19 17:13 07/08/19 20:55 07/08/19 21:19 07/08/19 21:38 Glucose (Fingerstick) 159 mg/dL (70-99) 42 mg/dL (70-99) 106 mg/dL (70-99) Creatinine 3.4 mg/dL (0.6-1.0) Estimated GFR (Cockcroft-Gault) 19.1 Glucose Level 53 mg/dL (70-99) Test 07/09/19 02:57 07/09/19 04:05 07/09/19 07:53 Glucose (Fingerstick) 230 mg/dL (70-99) 146 mg/dL (70-99) White Blood Count 5.9 x10^3/uL (4.0-11.0) Red Blood Count 2.90 x10^6/uL (3.50-5.40) Hemoglobin 8.5 g/dL (12.0-15.5) Hematocrit 25.2 % (36.0-47.0) Mean Corpuscular Volume 87 fL (79-100) Mean Corpuscular Hemoglobin 29 pg (25-35) Mean Corpuscular Hemoglobin Concent 34 g/dL (31-37) Red Cell Distribution Width 15.0 % (11.5-14.5) Platelet Count 247 x10^3/uL (140-400) Neutrophils (%) (Auto) 51 % (31-73) Lymphocytes (%) (Auto) 39 % (24-48) Monocytes (%) (Auto) 8 % (0-9) Eosinophils (%) (Auto) 1 % (0-3) Basophils (%) (Auto) 1 % (0-3) Neutrophils # (Auto) 3.0 x10^3/uL (1.8-7.7) Lymphocytes # (Auto) 2.3 x10^3/uL (1.0-4.8) Monocytes # (Auto) 0.5 x10^3/uL (0.0-1.1) Eosinophils # (Auto) 0.1 x10^3/uL (0.0-0.7) Basophils # (Auto) 0.1 x10^3/uL (0.0-0.2) Sodium Level 136 mmol/L (136-145) Potassium Level 4.6 mmol/L (3.5-5.1) Chloride Level 104 mmol/L (98-107) Carbon Dioxide Level 23 mmol/L (21-32) Anion Gap 9 (6-14) Blood Urea Nitrogen 20 mg/dL (7-20) Creatinine 3.4 mg/dL (0.6-1.0) Estimated GFR (Cockcroft-Gault) 19.1 BUN/Creatinine Ratio 6 (6-20) Glucose Level 229 mg/dL (70-99) Calcium Level 8.0 mg/dL (8.5-10.1) Total Bilirubin 0.1 mg/dL (0.2-1.0) Aspartate Amino Transf (AST/SGOT) 11 U/L (15-37) Alanine Aminotransferase (ALT/SGPT) 9 U/L (14-59) Alkaline Phosphatase 103 U/L (46-116) Total Protein 6.5 g/dL (6.4-8.2) Albumin 2.8 g/dL (3.4-5.0) Albumin/Globulin Ratio 0.8 (1.0-1.7) Laboratory Tests Test 07/08/19 11:47 07/08/19 14:20 07/08/19 17:13 07/08/19 20:55 Glucose (Fingerstick) 91 mg/dL (70-99) 159 mg/dL (70-99) Creatinine 3.3 mg/dL (0.6-1.0) 3.4 mg/dL (0.6-1.0) Estimated GFR (Cockcroft-Gault) 19.7 19.1 Glucose Level 53 mg/dL (70-99) Test 07/08/19 21:19 07/08/19 21:38 07/09/19 02:57 07/09/19 04:05 Glucose (Fingerstick) 42 mg/dL (70-99) 106 mg/dL (70-99) 230 mg/dL (70-99) White Blood Count 5.9 x10^3/uL (4.0-11.0) Red Blood Count 2.90 x10^6/uL (3.50-5.40) Hemoglobin 8.5 g/dL (12.0-15.5) Hematocrit 25.2 % (36.0-47.0) Mean Corpuscular Volume 87 fL (79-100) Mean Corpuscular Hemoglobin 29 pg (25-35) Mean Corpuscular Hemoglobin Concent 34 g/dL (31-37) Red Cell Distribution Width 15.0 % (11.5-14.5) Platelet Count 247 x10^3/uL (140-400) Neutrophils (%) (Auto) 51 % (31-73) Lymphocytes (%) (Auto) 39 % (24-48) Monocytes (%) (Auto) 8 % (0-9) Eosinophils (%) (Auto) 1 % (0-3) Basophils (%) (Auto) 1 % (0-3) Neutrophils # (Auto) 3.0 x10^3/uL (1.8-7.7) Lymphocytes # (Auto) 2.3 x10^3/uL (1.0-4.8) Monocytes # (Auto) 0.5 x10^3/uL (0.0-1.1) Eosinophils # (Auto) 0.1 x10^3/uL (0.0-0.7) Basophils # (Auto) 0.1 x10^3/uL (0.0-0.2) Sodium Level 136 mmol/L (136-145) Potassium Level 4.6 mmol/L (3.5-5.1) Chloride Level 104 mmol/L (98-107) Carbon Dioxide Level 23 mmol/L (21-32) Anion Gap 9 (6-14) Blood Urea Nitrogen 20 mg/dL (7-20) Creatinine 3.4 mg/dL (0.6-1.0) Estimated GFR (Cockcroft-Gault) 19.1 BUN/Creatinine Ratio 6 (6-20) Glucose Level 229 mg/dL (70-99) Calcium Level 8.0 mg/dL (8.5-10.1) Total Bilirubin 0.1 mg/dL (0.2-1.0) Aspartate Amino Transf (AST/SGOT) 11 U/L (15-37) Alanine Aminotransferase (ALT/SGPT) 9 U/L (14-59) Alkaline Phosphatase 103 U/L (46-116) Total Protein 6.5 g/dL (6.4-8.2) Albumin 2.8 g/dL (3.4-5.0) Albumin/Globulin Ratio 0.8 (1.0-1.7) Test 07/09/19 07:53 Glucose (Fingerstick) 146 mg/dL (70-99) Medications Current Medications Sodium Chloride 1,000 ml @ 1,000 mls/hr 1X ONCE IV Last administered on 07/07/19 18:47; Start 07/07/19 at 19:00; Stop 07/07/19 at 19:59; Status DC Prochlorperazine Edisylate (Compazine) 10 mg 1X ONCE IV Last administered on 07/07/19 18:50; Start 07/07/19 at 19:00; Stop 07/07/19 at 19:01; Status DC Fentanyl Citrate (Fentanyl 2ml Vial) 50 mcg 1X ONCE IV Last administered on 07/07/19 18:48; Start 07/07/19 at 19:00; Stop 07/07/19 at 19:01; Status DC Lorazepam (Ativan Inj) 1 mg 1X ONCE IV Last administered on 07/07/19 18:50; Start 07/07/19 at 19:00; Stop 07/07/19 at 19:01; Status DC Pantoprazole Sodium (PROTONIX VIAL for IV PUSH) 40 mg 1X ONCE IVP Last administered on 07/07/19at 20:10; Start 07/07/19 at 20:30; Stop 07/07/19 at 20:31; Status DC Sodium Chloride 1,000 ml @ 1,000 mls/hr 1X ONCE IV Last administered on 07/07/19at 20:11; Start 07/07/19 at 21:00; Stop 07/07/19 at 21:59; Status DC Hydralazine HCl (Apresoline Inj) 10 mg 1X ONCE IVP Last administered on 07/07/19at 20:40; Start 07/07/19 at 20:30; Stop 07/07/19 at 20:31; Status DC Ondansetron HCl (Zofran) 4 mg PRN Q8HRS PRN IV NAUSEA/VOMITING 1ST CHOICE; Start 07/07/19 at 22:15; Stop 07/08/19 at 22:14; Status Cancel Fentanyl Citrate (Fentanyl 2ml Vial) 50 mcg PRN Q4HRS PRN IVP SEVERE PAIN 7-10 Last administered on 07/09/19 00:33; Start 07/07/19 at 22:45 Prochlorperazine Edisylate (Compazine) 10 mg PRN Q6HRS PRN IV NAUSEA/VOMITING 1ST CHOICE Last administered on 07/08/19 08:25; Start 07/08/19 at 03:30 Insulin Human Lispro (HumaLOG) 0-5 UNITS TIDWMEALS SQ Last administered on 07/09/19 08:53; Start 07/08/19 at 08:00 Dextrose (Dextrose 50%-Water Syringe) 12.5 gm PRN Q15MIN PRN IV SEE COMMENTS; Start 07/08/19 at 04:00 Hydralazine HCl (Apresoline) 50 mg TID PO Last administered on 07/09/19 08:47; Start 07/08/19 at 09:00 Carvedilol (Coreg) 25 mg BIDWMEALS PO Last administered on 07/09/19 08:47; Start 07/08/19 at 09:00 Insulin Glargine (Lantus Syringe) 25 unit QHS SQ ; Start 07/08/19 at 21:00 Pantoprazole Sodium (Protonix) 40 mg DAILY PO Last administered on 07/09/19 08:47; Start 07/08/19 at 13:00 Polyethylene Glycol (miraLAX PACKET) 17 gm BID PO Last administered on 07/08/19 21:19; Start 07/08/19 at 21:00 Citalopram Hydrobromide (CeleXA) 40 mg DAILY PO Last administered on 07/09/19at 08:47; Start 07/08/19 at 13:00 Insulin Human Lispro (HumaLOG) 4 units TIDWMEALS SQ ; Start 07/08/19 at 12:05 Promethazine HCl (Phenergan) 25 mg PRN Q6HRS PRN PO NAUSEA/VOMITING Last administered on 07/08/19 21:41; Start 07/08/19 at 12:15 Sodium Chloride 1,000 ml @ 100 mls/hr Q10H IV Last administered on 07/08/19 21:41; Start 07/08/19 at 12:15 Heparin Sodium (Porcine) (Heparin Sodium) 5,000 unit Q8HRS SQ Last administered on 07/09/19 06:16; Start 07/08/19 at 14:00 Ceftriaxone Sodium (Rocephin) 1 gm Q24H IVP Last administered on 07/08/19 12:31; Start 07/08/19 at 12:30 Sodium Chloride (Normal Saline Flush) 3 ml QSHIFT PRN IV AFTER MEDS AND BLOOD DRAWS; Start 07/08/19 at 13:00 Acetaminophen (Tylenol) 650 mg PRN Q4HRS PRN PO TEMP OVER 100.4F OR MILD PAIN; Start 07/08/19 at 13:00 Clonidine HCl (Catapres) 0.1 mg PRN Q6HRS PRN PO SBP>160 OR DBP>90 Last administered on 07/08/19at 17:25; Start 07/08/19 at 13:00 Docusate Sodium (Colace) 100 mg PRN BID PRN PO HARD STOOLS; Start 07/08/19 at 13:00 Albuterol Sulfate (Ventolin Neb Soln) 2.5 mg PRN Q4HRS PRN NEB SHORTNESS OF BREATH; Start 07/08/19 at 13:00 Lorazepam (Ativan) 0.5 mg PRN Q4HRS PRN PO ANXIETY / AGITATION Last administered on 07/09/19 09:06; Start 07/08/19 at 13:00 Lactobacillus Rhamnosus (Culturelle) 1 cap BID PO Last administered on 07/09/19at 08:47; Start 07/08/19 at 21:00 Tramadol HCl (Ultram) 50 mg PRN Q6HRS PRN PO PAIN Last administered on 07/09/19at 06:12; Start 07/08/19 at 18:15 Glucose (Insta-Glucose) 15 gm STK-MED ONCE .ROUTE ; Start 07/08/19 at 21:23; Stop 07/08/19 at 21:23; Status DC Glucose (Insta-Glucose) 15 gm PRN Q15MIN PRN PO LOW BLOOD SUGAR Last administered on 07/08/19at 21:30; Start 07/08/19 at 21:30 Lubiprostone (Amitiza) 24 mcg BIDWMEALS PO ; Start 07/09/19 at 17:00 Active Scripts Active Reported Hydralazine Hcl 50 Mg Tablet 1 Tab PO TID Carvedilol 25 Mg Tablet 25 Mg PO BIDWMEALS Promethazine Hcl 25 Mg Tablet 1 Tab PO PRN Q6HRS Miralax (Polyethylene Glycol 3350) 17 Gm Powd.pack 1 Packet PO BID Lantus (Insulin Glargine,Hum.rec.anlog) 100 Unit/1 Ml Vial 25 Unit SQ QHS Novolog (Insulin Aspart) 100 Unit/1 Ml Cartridge 4 Unit SQ TID Lexapro (Escitalopram Oxalate) 20 Mg Tablet 1 Tab PO DAILY Tramadol Hcl 50 Mg Tablet 1 Tab PO PRN Q6HRS Pantoprazole Sodium (Pantoprazole Sodium) 40 Mg Tablet.dr 1 Tab PO DAILY Dicyclomine Hcl 10 Mg Capsule 1 Cap PO TID Vitals/I & O Vital Sign - Last 24 Hours 07/08/19 07/08/19 07/08/19 07/08/19 11:33 12:30 13:00 14:05 Temp 98.5 98.5 Pulse 114 114 Resp 17 B/P (MAP) 163/92 (115) 163/92 Pulse Ox 98 O2 Delivery Room Air Room Air Room Air 07/08/19 07/08/19 07/08/19 07/08/19 15:49 17:13 17:24 17:25 Temp 98.7 98.7 Pulse 110 110 Resp 18 B/P (MAP) 153/92 (112) 153/92 Pulse Ox 98 98 O2 Delivery Room Air Room Air Room Air 07/08/19 07/08/19 07/08/19 07/08/19 17:25 17:55 19:21 19:45 Temp 98.1 98.1 Pulse 110 77 Resp 17 B/P (MAP) 153/92 151/86 (107) Pulse Ox 98 98 97 O2 Delivery Room Air Room Air Room Air 07/08/19 07/08/19 07/08/19 07/08/19 20:06 20:21 21:40 23:50 Temp 98.4 98.4 Pulse 110 79 Resp 18 17 B/P (MAP) 153/92 142/84 (103) Pulse Ox 97 97 O2 Delivery Room Air Room Air Room Air 07/09/19 07/09/19 07/09/19 07/09/19 00:33 01:03 03:50 06:12 Temp 97.6 97.6 Pulse 73 Resp 18 18 17 18 B/P (MAP) 158/93 (114) Pulse Ox 97 97 98 98 O2 Delivery Room Air Room Air Room Air Room Air 07/09/19 07/09/19 07/09/19 07/09/19 07:00 07:12 08:00 08:47 Temp 97.8 97.8 Pulse 77 77 Resp 18 18 B/P (MAP) 189/117 (141) 189/117 Pulse Ox 98 98 O2 Delivery Room Air Room Air Room Air 07/09/19 08:47 Pulse 77 B/P (MAP) 189/117 Intake and Output 07/08/19 07/08/19 07/09/19 15:00 23:00 07:00 Intake Total 500 ml 1720 ml 1200 ml Balance 500 ml 1720 ml 1200 ml GINA PIÑA MD Jul 09, 2019 10:33
[2019-07-09 11:01] VITALS: BP 189/105
[2019-07-09] MEDS: cloNIDine HCL 0.1 MG TABLET PO PRN (11:08)
[2019-07-09] MEDS: IV NORMAL SALINE 1000ML BAG 1,000 ML IV SCH ×2 (11:44→23:00)
--- NOTE | 2019-07-09 13:23 | CARD ---
MR#: [id number] Date of Study: 07/09/2019 Ordering Physician: GINA PIÑA, Referring Physician: Zeferino LANCASTER: Alicia Rodriguez APPROVED REPORT EXAM: Two-dimensional and M-mode echocardiogram with Doppler and color Doppler. Other Information Quality : AverageHR: 73bpm INDICATION Hypertension/HCVD 2D DIMENSIONS RVDd2.0 (2.9-3.5cm)Left Atrium(2D)3.2 (1.6-4.0cm) IVSd1.0 (0.7-1.1cm)Aortic Root(2D)1.8 (2.0-3.7cm) LVDd4.2 (3.9-5.9cm)LVOT Diameter1.9 (1.8-2.4cm) PWd1.2 (0.7-1.1cm)LVDs2.3 (2.5-4.0cm) FS (%) 45.9 %SV60.2 ml LVEF(%)77.6 (>50%) Aortic Valve AoV Peak Presley.162.9cm/sAoV VTI31.7cm AO Peak GR.10.6mmHgLVOT Peak Presley.123.0cm/s AO Mean GR.5mmHgAVA (VMAX)2.20cm2 Mitral Valve MV E Heqwufrd19.5cm/sMV E Peak Gr.4mmHg MV DECEL [id number] A Teqptryu54.9cm/s MV E Mean Gr.2mmHgE/A Ratio0.9 Pulmonary Valve PV Peak Rlewpvqx58.9cm/s Tricuspid Valve TR P. Yotgocmz386ne/sRAP [id number] TR Peak Gr.38zlImNTEL25zbWd Pulmonary Vein S1 Zieqwoej40.7cm/sD2 Ltlystvj48.6cm/s LEFT VENTRICLE The left ventricle is normal size. There is moderate to severe concentric left ventricular hypertroph y. The left ventricular systolic function is normal and the ejection fraction is within normal range. The Ejection Fraction is 55-60%. There is normal LV segmental wall motion. Transmitral Doppler flow pattern is Grade I-abnormal relaxation pattern. RIGHT VENTRICLE The right ventricle cavity is small. There is normal right ventricular wall thickness. The right vent ricular systolic function is normal. ATRIA The left atrium size is normal. The right atrium size is normal. The interatrial septum is intact wit h no evidence for an atrial septal defect or patent foramen ovale as noted on 2-D or Doppler imaging. AORTIC VALVE The aortic valve is normal in structure and function. Doppler and Color Flow revealed no significant aortic regurgitation. There is no significant aortic valvular stenosis. MITRAL VALVE The mitral valve is thickened but opens well. There is no evidence of mitral valve prolapse. There is no mitral valve stenosis. Doppler and Color-flow revealed mild mitral regurgitation. TRICUSPID VALVE The tricuspid valve is normal in structure and function. Doppler and Color Flow revealed mild tricusp id regurgitation with an estimated PAP of 29 mmHg. There is no tricuspid valve stenosis. PULMONIC VALVE The pulmonic valve is not well visualized. Doppler and Color Flow revealed mild pulmonic valvular reg urgitation. There is no pulmonic valvular stenosis. GREAT VESSELS The aortic root is normal in size. The ascending aorta is normal in size. The IVC is normal in size a nd collapses >50% with inspiration. PERICARDIAL EFFUSION There is no pleural effusion. There is no evidence of significant pericardial effusion. Critical Notification Critical Value: No <Conclusion> The left ventricular systolic function is normal and the ejection fraction is within normal range. Th e Ejection Fraction is 55-60%. There is normal LV segmental wall motion. There is moderate to severe concentric left ventricular hypertrophy. Doppler and Color Flow revealed mild tricuspid regurgitation with an estimated PAP of 29 mmHg. Signed by : Arik Elena, Electronically Approved : 07/09/2019 13:23:32
[2019-07-09] MEDS: cefTRIAXone IV Push 1 GM VIAL. IVP SCH (13:52)
[2019-07-09] MEDS ORDERED: AMLO10TA8 PO (14:14)
[2019-07-09] MEDS: amLODIPine BESYLATE 10 MG TABLET PO SCH (14:22)
[2019-07-09 14:39] VITALS: BP 165/110
--- NOTE | 2019-07-09 16:09 | PDOC2 ---
CONSULT Date of Consult Date of Consult DATE: 07/09/19 TIME: 16:01 Reason for Consult Reason for Consult: RENAL FAILURE Referring Physician Referring Physician: AYANA Identification/Chief Complaint Chief Complaint N/V/D Source Source: Chart review, Patient History of Present Illness Reason for Visit: THIS IS A 33 YR OLD WITH ABD PAIN, N/V AND DIARRHEA FOR SEVERAL DAYS. CR OF 3.3. SHE HAS STAGE 4 CKD WITH CR IN 2.5 TO 3.2 RANGE DUE TO DM AND HTN RELATED END ORGAN DAMAGE. SHE HAS ANEMIA OF CKD AND NO EVIDENCE OF NEPHRITIS. NO NEPHROTOXINS NOTED. ABD IMAGING WAS NEG FOR ANY RENAL ABNORMALITIES. 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 NO HX OF ANY KIDNEY OR BLADDER SURGERIES HEMATURIA DYSURIA OR FREQUENCY NOTED Past Medical History Cardiovascular: HTN GI: Other (gastroparesis) Psych: Addictions Renal/: Chronic renal insuff, Chronic renal failure Endocrine: Diabetes Family History Family History: Hypertension Social History No ALCOHOL: none Drugs: Marijuana Current Problem List Problem List Problems Medical Problems: (1) End stage renal disease Status: Acute (2) Vomiting Status: Acute Current Medications Current Medications Current Medications Sodium Chloride 1,000 ml @ 1,000 mls/hr 1X ONCE IV Last administered on 07/07/19at 18:47; Start 07/07/19 at 19:00; Stop 07/07/19 at 19:59; Status DC Prochlorperazine Edisylate (Compazine) 10 mg 1X ONCE IV Last administered on 07/07/19at 18:50; Start 07/07/19 at 19:00; Stop 07/07/19 at 19:01; Status DC Fentanyl Citrate (Fentanyl 2ml Vial) 50 mcg 1X ONCE IV Last administered on 07/07/19at 18:48; Start 07/07/19 at 19:00; Stop 07/07/19 at 19:01; Status DC Lorazepam (Ativan Inj) 1 mg 1X ONCE IV Last administered on 07/07/19at 18:50; Start 07/07/19 at 19:00; Stop 07/07/19 at 19:01; Status DC Pantoprazole Sodium (PROTONIX VIAL for IV PUSH) 40 mg 1X ONCE IVP Last administered on 07/07/19at 20:10; Start 07/07/19 at 20:30; Stop 07/07/19 at 20:31; Status DC Sodium Chloride 1,000 ml @ 1,000 mls/hr 1X ONCE IV Last administered on 07/07/19 20:11; Start 07/07/19 at 21:00; Stop 07/07/19 at 21:59; Status DC Hydralazine HCl (Apresoline Inj) 10 mg 1X ONCE IVP Last administered on 07/07/19at 20:40; Start 07/07/19 at 20:30; Stop 07/07/19 at 20:31; Status DC Ondansetron HCl (Zofran) 4 mg PRN Q8HRS PRN IV NAUSEA/VOMITING 1ST CHOICE; Start 07/07/19 at 22:15; Stop 07/08/19 at 22:14; Status Cancel Fentanyl Citrate (Fentanyl 2ml Vial) 50 mcg PRN Q4HRS PRN IVP SEVERE PAIN 7-10 Last administered on 07/09/19at 15:40; Start 07/07/19 at 22:45 Prochlorperazine Edisylate (Compazine) 10 mg PRN Q6HRS PRN IV NAUSEA/VOMITING 1ST CHOICE Last administered on 07/08/19 08:25; Start 07/08/19 at 03:30 Insulin Human Lispro (HumaLOG) 0-5 UNITS TIDWMEALS SQ Last administered on 07/09/19 08:53; Start 07/08/19 at 08:00 Dextrose (Dextrose 50%-Water Syringe) 12.5 gm PRN Q15MIN PRN IV SEE COMMENTS; Start 07/08/19 at 04:00 Hydralazine HCl (Apresoline) 50 mg TID PO Last administered on 07/09/19at 13:53; Start 07/08/19 at 09:00 Carvedilol (Coreg) 25 mg BIDWMEALS PO Last administered on 07/09/19 08:47; Start 07/08/19 at 09:00 Insulin Glargine (Lantus Syringe) 25 unit QHS SQ ; Start 07/08/19 at 21:00 Pantoprazole Sodium (Protonix) 40 mg DAILY PO Last administered on 07/09/19 08:47; Start 07/08/19 at 13:00 Polyethylene Glycol (miraLAX PACKET) 17 gm BID PO Last administered on 11/10/19at 21:19; Start 07/08/19 at 21:00 Citalopram Hydrobromide (CeleXA) 40 mg DAILY PO Last administered on 07/09/19at 08:47; Start 07/08/19 at 13:00 Insulin Human Lispro (HumaLOG) 4 units TIDWMEALS SQ ; Start 07/08/19 at 12:05 Promethazine HCl (Phenergan) 25 mg PRN Q6HRS PRN PO NAUSEA/VOMITING Last administered on 07/08/19at 21:41; Start 07/08/19 at 12:15 Sodium Chloride 1,000 ml @ 100 mls/hr Q10H IV Last administered on 07/09/19 11:44; Start 07/08/19 at 12:15 Heparin Sodium (Porcine) (Heparin Sodium) 5,000 unit Q8HRS SQ Last administered on 07/09/19 14:01; Start 07/08/19 at 14:00 Ceftriaxone Sodium (Rocephin) 1 gm Q24H IVP Last administered on 07/09/19at 13:52; Start 07/08/19 at 12:30 Sodium Chloride (Normal Saline Flush) 3 ml QSHIFT PRN IV AFTER MEDS AND BLOOD DRAWS; Start 07/08/19 at 13:00 Acetaminophen (Tylenol) 650 mg PRN Q4HRS PRN PO TEMP OVER 100.4F OR MILD PAIN; Start 07/08/19 at 13:00 Clonidine HCl (Catapres) 0.1 mg PRN Q6HRS PRN PO SBP>160 OR DBP>90 Last administered on 07/09/19at 11:08; Start 07/08/19 at 13:00 Docusate Sodium (Colace) 100 mg PRN BID PRN PO HARD STOOLS; Start 07/08/19 at 13:00 Albuterol Sulfate (Ventolin Neb Soln) 2.5 mg PRN Q4HRS PRN NEB SHORTNESS OF BREATH; Start 07/08/19 at 13:00 Lorazepam (Ativan) 0.5 mg PRN Q4HRS PRN PO ANXIETY / AGITATION Last administere d on 07/09/19at 14:25; Start 07/08/19 at 13:00 Lactobacillus Rhamnosus (Culturelle) 1 cap BID PO Last administered on 07/09/19 at 08:47; Start 07/08/19 at 21:00 Tramadol HCl (Ultram) 50 mg PRN Q6HRS PRN PO PAIN Last administered on 07/09/19at 14:28; Start 07/08/19 at 18:15 Glucose (Insta-Glucose) 15 gm STK-MED ONCE .ROUTE ; Start 07/08/19 at 21:23; Stop 07/08/19 at 21:23; Status DC Glucose (Insta-Glucose) 15 gm PRN Q15MIN PRN PO LOW BLOOD SUGAR Last administered on 07/08/19at 21:30; Start 07/08/19 at 21:30 Lubiprostone (Amitiza) 24 mcg BIDWMEALS PO ; Start 07/09/19 at 17:00 Amlodipine Besylate (Norvasc) 10 mg DAILY PO Last administered on 07/09/19at 14:22; Start 07/09/19 at 14:17 Active Scripts Active Reported Amlodipine Besylate 10 Mg Tablet 10 Mg PO DAILY Hydralazine Hcl 50 Mg Tablet 1 Tab PO TID Carvedilol 25 Mg Tablet 25 Mg PO BIDWMEALS Promethazine Hcl 25 Mg Tablet 1 Tab PO PRN Q6HRS Miralax (Polyethylene Glycol 3350) 17 Gm Powd.pack 1 Packet PO BID Lantus (Insulin Glargine,Hum.rec.anlog) 100 Unit/1 Ml Vial 25 Unit SQ QHS Novolog (Insulin Aspart) 100 Unit/1 Ml Cartridge 4 Unit SQ TID Lexapro (Escitalopram Oxalate) 20 Mg Tablet 1 Tab PO DAILY Tramadol Hcl 50 Mg Tablet 1 Tab PO PRN Q6HRS Pantoprazole Sodium (Pantoprazole Sodium) 40 Mg Tablet.dr 1 Tab PO DAILY Dicyclomine Hcl 10 Mg Capsule 1 Cap PO TID Allergies Allergies: Coded Allergies: ondansetron (Unverified Allergy, Severe, edema, 07/07/19) ketorolac (Unverified Allergy, Intermediate, hives, 07/07/19) morphine (Unverified Allergy, Intermediate, hives, 07/07/19) ROS General: YES: Fatigue, Malaise, Appetite PSYCHOLOGICAL ROS: YES: Anxiety Eyes: Yes Decreased vision HEENT: YES: Heacaches Respiratory: YES: Cough Gastrointestinal: Yes Nausea, Yes Vomiting, Yes Abdominal Pain, Yes Diarrhea Genitourinary: YES Other Musculoskeletal: Yes Muscular Weakness Neurological: Yes Weakness Skin: Yes Dry Skin Physical Exam General: Alert, Oriented X3, No acute distress HEENT: Atraumatic, PERRLA Lungs: Clear to auscultation Heart: Regular rate, Normal S1, Normal S2, No murmurs Abdomen: Normal bowel sounds Extremities: No clubbing Skin: No rashes Neuro: Normal speech, Sensation intact Psych/Mental Status: Mental status NL, Mood NL MUSCULOSKELETAL: No joint tenderness, No deformity, No swelling Vitals VITALS Vital Signs Date Time Temp Pulse Resp B/P (MAP) Pulse Ox O2 Delivery O2 Flow Rate FiO2 07/09/19 15:40 18 Room Air 07/09/19 14:39 97.7 77 165/110 (128) 98 97.7 Labs Labs Laboratory Tests Test 07/07/19 18:33 07/07/19 19:00 07/07/19 19:35 07/07/19 19:40 White Blood Count 8.8 x10^3/uL (4.0-11.0) Red Blood Count 3.85 x10^6/uL (3.50-5.40) Hemoglobin 11.3 g/dL (12.0-15.5) Hematocrit 33.2 % (36.0-47.0) Mean Corpuscular Volume 86 fL (79-100) Mean Corpuscular Hemoglobin 29 pg (25-35) Mean Corpuscular Hemoglobin Concent 34 g/dL (31-37) Red Cell Distribution Width 14.9 % (11.5-14.5) Platelet Count 396 x10^3/uL (140-400) Neutrophils (%) (Auto) 81 % (31-73) Lymphocytes (%) (Auto) 14 % (24-48) Monocytes (%) (Auto) 3 % (0-9) Eosinophils (%) (Auto) 0 % (0-3) Basophils (%) (Auto) 1 % (0-3) Neutrophils # (Auto) 7.1 x10^3/uL (1.8-7.7) Lymphocytes # (Auto) 1.3 x10^3/uL (1.0-4.8) Monocytes # (Auto) 0.3 x10^3/uL (0.0-1.1) Eosinophils # (Auto) 0.0 x10^3/uL (0.0-0.7) Basophils # (Auto) 0.1 x10^3/uL (0.0-0.2) Prothrombin Time 13.3 SEC (11.7-14.0) Prothromb Time International Ratio 1.0 (0.8-1.1) Activated Partial Thromboplast Time 35 SEC (24-38) Lactic Acid Level 2.1 mmol/L (0.4-2.0) Serum Test, Qualitative Negative (NEG) Gastric Fluid Occult Blood Positive (NEG) Sodium Level 142 mmol/L (136-145) Potassium Level 4.4 mmol/L (3.5-5.1) Chloride Level 105 mmol/L (98-107) Carbon Dioxide Level 23 mmol/L (21-32) Anion Gap 14 (6-14) Blood Urea Nitrogen 23 mg/dL (7-20) Creatinine 4.1 mg/dL (0.6-1.0) Estimated GFR (Cockcroft-Gault) 15.4 BUN/Creatinine Ratio 6 (6-20) Glucose Level 266 mg/dL (70-99) Calcium Level 9.3 mg/dL (8.5-10.1) Magnesium Level 1.9 mg/dL (1.8-2.4) Total Bilirubin 0.3 mg/dL (0.2-1.0) Aspartate Amino Transf (AST/SGOT) 14 U/L (15-37) Alanine Aminotransferase (ALT/SGPT) 13 U/L (14-59) Alkaline Phosphatase 136 U/L (46-116) Total Protein 8.7 g/dL (6.4-8.2) Albumin 3.8 g/dL (3.4-5.0) Albumin/Globulin Ratio 0.8 (1.0-1.7) Urine Collection Type Unknown Urine Color Yellow Urine Clarity Clear Urine pH 7.5 Urine Specific [place] 1.015 Urine Protein >=300 mg/dL (NEG-TRACE) Urine Glucose (UA) 250 mg/dL (NEG) Urine Ketones (Stick) Negative mg/dL (NEG) Urine Blood Trace (NEG) Urine Nitrite Negative (NEG) Urine Bilirubin Negative (NEG) Urine Urobilinogen Dipstick 0.2 mg/dL (0.2 mg/dL) Urine Leukocyte Esterase Trace (NEG) Urine RBC 6-10 /HPF (0-2) Urine WBC 5-10 /HPF (0-4) Urine Squamous Epithelial Cells Mod /LPF Urine Amorphous Sediment Present /HPF Urine Bacteria Few /HPF (0-FEW) Urine Hyaline Casts Occasional /HPF Urine Mucus Slight /LPF Urine Opiates Screen Neg (NEG) Urine Methadone Screen Neg (NEG) Urine Barbiturates Neg (NEG) Urine Phencyclidine Screen Neg (NEG) Urine Amphetamine/Methamphetamine Neg (NEG) Urine Benzodiazepines Screen Neg (NEG) Urine Cocaine Screen Neg (NEG) Urine Cannabinoids Screen Pos (NEG) Urine Ethyl Alcohol Neg (NEG) Test 07/07/19 23:00 07/08/19 08:09 07/08/19 11:47 07/08/19 14:20 Lactic Acid Level 0.6 mmol/L (0.4-2.0) Glucose (Fingerstick) 162 mg/dL (70-99) 91 mg/dL (70-99) Creatinine 3.3 mg/dL (0.6-1.0) Estimated GFR (Cockcroft-Gault) 19.7 Test 07/08/19 17:13 07/08/19 20:55 07/08/19 21:19 07/08/19 21:38 Glucose (Fingerstick) 159 mg/dL (70-99) 42 mg/dL (70-99) 106 mg/dL (70-99) Creatinine 3.4 mg/dL (0.6-1.0) Estimated GFR (Cockcroft-Gault) 19.1 Glucose Level 53 mg/dL (70-99) Test 07/09/19 02:57 07/09/19 04:05 07/09/19 07:53 07/09/19 11: Glucose (Fingerstick) 230 mg/dL (70-99) 146 mg/dL (70-99) 118 mg/dL (70-99) White Blood Count 5.9 x10^3/uL (4.0-11.0) Red Blood Count 2.90 x10^6/uL (3.50-5.40) Hemoglobin 8.5 g/dL (12.0-15.5) Hematocrit 25.2 % (36.0-47.0) Mean Corpuscular Volume 87 fL (79-100) Mean Corpuscular Hemoglobin 29 pg (25-35) Mean Corpuscular Hemoglobin Concent 34 g/dL (31-37) Red Cell Distribution Width 15.0 % (11.5-14.5) Platelet Count 247 x10^3/uL (140-400) Neutrophils (%) (Auto) 51 % (31-73) Lymphocytes (%) (Auto) 39 % (24-48) Monocytes (%) (Auto) 8 % (0-9) Eosinophils (%) (Auto) 1 % (0-3) Basophils (%) (Auto) 1 % (0-3) Neutrophils # (Auto) 3.0 x10^3/uL (1.8-7.7) Lymphocytes # (Auto) 2.3 x10^3/uL (1.0-4.8) Monocytes # (Auto) 0.5 x10^3/uL (0.0-1.1) Eosinophils # (Auto) 0.1 x10^3/uL (0.0-0.7) Basophils # (Auto) 0.1 x10^3/uL (0.0-0.2) Sodium Level 136 mmol/L (136-145) Potassium Level 4.6 mmol/L (3.5-5.1) Chloride Level 104 mmol/L (98-107) Carbon Dioxide Level 23 mmol/L (21-32) Anion Gap 9 (6-14) Blood Urea Nitrogen 20 mg/dL (7-20) Creatinine 3.4 mg/dL (0.6-1.0) Estimated GFR (Cockcroft-Gault) 19.1 BUN/Creatinine Ratio 6 (6-20) Glucose Level 229 mg/dL (70-99) Calcium Level 8.0 mg/dL (8.5-10.1) Iron Level 45 ug/dL (50-170) Total Iron Binding Capacity 191 ug/dL (250-450) Iron Saturation 24 % (15-34) Total Bilirubin 0.1 mg/dL (0.2-1.0) Aspartate Amino Transf (AST/SGOT) 11 U/L (15-37) Alanine Aminotransferase (ALT/SGPT) 9 U/L (14-59) Alkaline Phosphatase 103 U/L (46-116) Total Protein 6.5 g/dL (6.4-8.2) Albumin 2.8 g/dL (3.4-5.0) Albumin/Globulin Ratio 0.8 (1.0-1.7) Laboratory Tests Test 07/08/19 17:13 07/08/19 20:55 07/08/19 21:19 07/08/19 21:38 Glucose (Fingerstick) 159 mg/dL (70-99) 42 mg/dL (70-99) 106 mg/dL (70-99) Creatinine 3.4 mg/dL (0.6-1.0) Estimated GFR (Cockcroft-Gault) 19.1 Glucose Level 53 mg/dL (70-99) Test 07/09/19 02:57 07/09/19 04:05 07/09/19 07:53 07/09/19 11:19 Glucose (Fingerstick) 230 mg/dL (70-99) 146 mg/dL (70-99) 118 mg/dL (70-99) White Blood Count 5.9 x10^3/uL (4.0-11.0) Red Blood Count 2.90 x10^6/uL (3.50-5.40) Hemoglobin 8.5 g/dL (12.0-15.5) Hematocrit 25.2 % (36.0-47.0) Mean Corpuscular Volume 87 fL (79-100) Mean Corpuscular Hemoglobin 29 pg (25-35) Mean Corpuscular Hemoglobin Concent 34 g/dL (31-37) Red Cell Distribution Width 15.0 % (11.5-14.5) Platelet Count 247 x10^3/uL (140-400) Neutrophils (%) (Auto) 51 % (31-73) Lymphocytes (%) (Auto) 39 % (24-48) Monocytes (%) (Auto) 8 % (0-9) Eosinophils (%) (Auto) 1 % (0-3) Basophils (%) (Auto) 1 % (0-3) Neutrophils # (Auto) 3.0 x10^3/uL (1.8-7.7) Lymphocytes # (Auto) 2.3 x10^3/uL (1.0-4.8) Monocytes # (Auto) 0.5 x10^3/uL (0.0-1.1) Eosinophils # (Auto) 0.1 x10^3/uL (0.0-0.7) Basophils # (Auto) 0.1 x10^3/uL (0.0-0.2) Sodium Level 136 mmol/L (136-145) Potassium Level 4.6 mmol/L (3.5-5.1) Chloride Level 104 mmol/L (98-107) Carbon Dioxide Level 23 mmol/L (21-32) Anion Gap 9 (6-14) Blood Urea Nitrogen 20 mg/dL (7-20) Creatinine 3.4 mg/dL (0.6-1.0) Estimated GFR (Cockcroft-Gault) 19.1 BUN/Creatinine Ratio 6 (6-20) Glucose Level 229 mg/dL (70-99) Calcium Level 8.0 mg/dL (8.5-10.1) Iron Level 45 ug/dL (50-170) Total Iron Binding Capacity 191 ug/dL (250-450) Iron Saturation 24 % (15-34) Total Bilirubin 0.1 mg/dL (0.2-1.0) Aspartate Amino Transf (AST/SGOT) 11 U/L (15-37) Alanine Aminotransferase (ALT/SGPT) 9 U/L (14-59) Alkaline Phosphatase 103 U/L (46-116) Total Protein 6.5 g/dL (6.4-8.2) Albumin 2.8 g/dL (3.4-5.0) Albumin/Globulin Ratio 0.8 (1.0-1.7) Assessment/Plan Assessment/Plan IMP CKD 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 AVOID NEPHROTOXINS CONT WITH HYDRATION AGREE WITH ANTIHYPERTENSIVE SCHEDULED AND PRN WILL FOLLOW ANNA ROSE MD Jul 09, 2019 16:09
[2019-07-09] MEDS: cloNIDine HCL 0.1 MG TABLET PO SCH (16:26)
[2019-07-09] MEDS: LUBIPROSTONE 24 MCG CAPSULE PO SCH (17:16)
[2019-07-09 20:00] VITALS: BP 137/84
[2019-07-09] MEDS: INSULIN GLARGINE SYRINGE. SQ SCH (21:00)
[2019-07-09 23:25] VITALS: BP 160/78
[2019-07-10] VITALS (7 sets, daily range): BP systolic 106–176; BP diastolic 72–120
[2019-07-10 00:07] LABS: HEMOGLOBIN A1C 6.8 % (4.8-5.6)
[2019-07-10] MEDS: cloNIDine HCL 0.1 MG TABLET PO SCH ×2 (00:11→06:13)
[2019-07-10] MEDS: HEPARIN for SUB-Q USE 5,000 UNIT/ML VIAL. SQ SCH ×4 (00:15→21:10)
[2019-07-10] MEDS: fentaNYL PF VIAL 100 MCG/2 ML VIAL IVP PRN ×6 (00:20→21:05)
[2019-07-10] MEDS: LORazepam 0.5 MG TABLET PO PRN ×2 (02:41→21:04)
[2019-07-10] MEDS: cloNIDine HCL 0.1 MG TABLET PO PRN (03:39)
[2019-07-10] MEDS ORDERED: diphenhydrAMINE HCL 25 MG CAPSULE PO PRN ×2 (04:00→11:00)
[2019-07-10] MEDS: CYCLOBENZAPRINE 10 MG TABLET. PO PRN ×2 (06:12→11:13)
[2019-07-10] MEDS: IV NORMAL SALINE 1000ML BAG 1,000 ML IV SCH ×2 (06:13→15:17)
[2019-07-10 06:16] LABS: HEMATOCRIT 25.1 % (36.0-47.0); HEMOGLOBIN 8.5 g/dL (12.0-15.5); RED BLOOD COUNT 2.91 x10^6/uL (3.50-5.40); RED CELL DISTRIBUTION WIDTH 14.7 % (11.5-14.5); WHITE BLOOD COUNT 6.7 x10^3/uL (4.0-11.0)
[2019-07-10 06:25] LABS: CALCIUM 7.9 mg/dL (8.5-10.1); CREATININE 3.3 mg/dL (0.6-1.0); GFR 19.7; POTASSIUM 4.5 mmol/L (3.5-5.1)
[2019-07-10] MEDS: CITALOPRAM 20 MG TABLET. PO SCH (07:52)
[2019-07-10] MEDS: CARVEDILOL 12.5 MG TABLET. PO SCH ×2 (07:53→16:37)
[2019-07-10] MEDS: PANTOPRAZOLE 40 MG TABLET.DR. PO SCH (07:53)
[2019-07-10] MEDS: LUBIPROSTONE 24 MCG CAPSULE PO SCH ×2 (07:53→16:37)
[2019-07-10] MEDS: LACTOBACILLUS RHAMNOSUS GG 1 CAPSULE. PO SCH ×2 (07:55→21:04)
[2019-07-10] MEDS: amLODIPine BESYLATE 10 MG TABLET PO SCH (07:55)
[2019-07-10] MEDS: POLYETHYLENE GLYCOL 3350 17 GM PACKET. PO SCH ×2 (07:55→21:03)
[2019-07-10] MEDS: INSULIN LISPRO 300 UNITS/3 ML VIAL. SQ SCH ×6 (09:01→19:07)
--- NOTE | 2019-07-10 09:01 | PDOC ---
PROGRESS NOTES History of Present Illness History of Present Illness Assessment/Plan Assessment/Plan IMPRESSION: 1. No nephrolithiasis or hydronephrosis. 2. Left adrenal gland nodule increase in size from previous exam from 2013 likely adenoma. 3. Normal appendix. 4. Circumferential urinary bladder wall thickening may be secondary to subacute distention or cystitis. 5. RENAL FAILURE// we NEED BASELINE LABS FROM NEPHROLOGY OFFICE 6. proteinuria 7. hypertension, accelerated likely hypertensive/ DIABETIC nephrosclerosis 8. intractable vomiting, better 9. diarrhea 10. thc abuse 11. possible UTI 12. HX STAGE 4 KIDNEY DISEASE cr down to 3.2 13. DIABETES 14. hx gastroparesis 15, acute volume depletion 16. drop in hgb may be due to hydration 17. left flank pain PLAN ADMIT Nephrology consult stool culture iv fluid support GI following dvt prophylaxis, heparin IV ROCEPHIN URINE CULTURE accuchecks Nonemergent MRI of the abdomen recommended. 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 serum cortisol 37 MIN pt exam, chart review, > 50% of time spent with exam, chart review, pt care coordination Vitals Vitals Vital Signs Date Time Temp Pulse Resp B/P (MAP) Pulse Ox O2 Delivery O2 Flow Rate FiO2 07/10/19 07:56 Room Air 07/10/19 07:55 94 176/106 07/10/19 07:15 97.8 20 98 97.8 Physical Exam General: Alert, Oriented X3, Cooperative, No acute distress, Other (somulent, slow speech pattern) Heart: Regular rate, Normal S1, Normal S2, No murmurs Abdomen: Normal bowel sounds Extremities: No clubbing Skin: No rashes Labs LABS SOILA JORDAN MD ORDERED: BCULT Procedure Result BLOOD CULTURE Preliminary NO GROWTH AFTER 1 DAY Laboratory Tests Test 07/09/19 11:19 07/09/19 17:13 07/09/19 23:34 07/10/19 06:05 Glucose (Fingerstick) 118 mg/dL (70-99) 218 mg/dL (70-99) 116 mg/dL (70-99) White Blood Count 6.7 x10^3/uL (4.0-11.0) Red Blood Count 2.91 x10^6/uL (3.50-5.40) Hemoglobin 8.5 g/dL (12.0-15.5) Hematocrit 25.1 % (36.0-47.0) Mean Corpuscular Volume 86 fL (79-100) Mean Corpuscular Hemoglobin 29 pg (25-35) Mean Corpuscular Hemoglobin Concent 34 g/dL (31-37) Red Cell Distribution Width 14.7 % (11.5-14.5) Platelet Count 262 x10^3/uL (140-400) Sodium Level 136 mmol/L (136-145) Potassium Level 4.5 mmol/L (3.5-5.1) Chloride Level 105 mmol/L (98-107) Carbon Dioxide Level 22 mmol/L (21-32) Anion Gap 9 (6-14) Blood Urea Nitrogen 19 mg/dL (7-20) Creatinine 3.3 mg/dL (0.6-1.0) Estimated GFR (Cockcroft-Gault) 19.7 Glucose Level 187 mg/dL (70-99) Calcium Level 7.9 mg/dL (8.5-10.1) Test 07/10/19 07:45 Glucose (Fingerstick) 178 mg/dL (70-99) Assessment and Plan Assessmemt and Plan Problems Medical Problems: (1) End stage renal disease Status: Acute (2) Vomiting Status: Acute Comment Review of Relevant I have reviewed the following items mine (where applicable) has been applied. Labs Laboratory Tests Test 07/08/19 11:47 07/08/19 14:20 07/08/19 17:13 07/08/19 20:55 Glucose (Fingerstick) 91 mg/dL (70-99) 159 mg/dL (70-99) Creatinine 3.3 mg/dL (0.6-1.0) 3.4 mg/dL (0.6-1.0) Estimated GFR (Cockcroft-Gault) 19.7 19.1 Glucose Level 53 mg/dL (70-99) Test 07/08/19 21:19 07/08/19 21:38 07/09/19 02:57 07/09/19 04:05 Glucose (Fingerstick) 42 mg/dL (70-99) 106 mg/dL (70-99) 230 mg/dL (70-99) White Blood Count 5.9 x10^3/uL (4.0-11.0) Red Blood Count 2.90 x10^6/uL (3.50-5.40) Hemoglobin 8.5 g/dL (12.0-15.5) Hematocrit 25.2 % (36.0-47.0) Mean Corpuscular Volume 87 fL (79-100) Mean Corpuscular Hemoglobin 29 pg (25-35) Mean Corpuscular Hemoglobin Concent 34 g/dL (31-37) Red Cell Distribution Width 15.0 % (11.5-14.5) Platelet Count 247 x10^3/uL (140-400) Neutrophils (%) (Auto) 51 % (31-73) Lymphocytes (%) (Auto) 39 % (24-48) Monocytes (%) (Auto) 8 % (0-9) Eosinophils (%) (Auto) 1 % (0-3) Basophils (%) (Auto) 1 % (0-3) Neutrophils # (Auto) 3.0 x10^3/uL (1.8-7.7) Lymphocytes # (Auto) 2.3 x10^3/uL (1.0-4.8) Monocytes # (Auto) 0.5 x10^3/uL (0.0-1.1) Eosinophils # (Auto) 0.1 x10^3/uL (0.0-0.7) Basophils # (Auto) 0.1 x10^3/uL (0.0-0.2) Sodium Level 136 mmol/L (136-145) Potassium Level 4.6 mmol/L (3.5-5.1) Chloride Level 104 mmol/L (98-107) Carbon Dioxide Level 23 mmol/L (21-32) Anion Gap 9 (6-14) Blood Urea Nitrogen 20 mg/dL (7-20) Creatinine 3.4 mg/dL (0.6-1.0) Estimated GFR (Cockcroft-Gault) 19.1 BUN/Creatinine Ratio 6 (6-20) Glucose Level 229 mg/dL (70-99) Calcium Level 8.0 mg/dL (8.5-10.1) Iron Level 45 ug/dL (50-170) Total Iron Binding Capacity 191 ug/dL (250-450) Iron Saturation 24 % (15-34) Total Bilirubin 0.1 mg/dL (0.2-1.0) Aspartate Amino Transf (AST/SGOT) 11 U/L (15-37) Alanine Aminotransferase (ALT/SGPT) 9 U/L (14-59) Alkaline Phosphatase 103 U/L (46-116) Total Protein 6.5 g/dL (6.4-8.2) Albumin 2.8 g/dL (3.4-5.0) Albumin/Globulin Ratio 0.8 (1.0-1.7) Test 07/09/19 07:53 07/09/19 11:19 07/09/19 17:13 07/09/19 23:34 Glucose (Fingerstick) 146 mg/dL (70-99) 118 mg/dL (70-99) 218 mg/dL (70-99) 116 mg/dL (70-99) Test 07/10/19 06:05 07/10/19 07:45 White Blood Count 6.7 x10^3/uL (4.0-11.0) Red Blood Count 2.91 x10^6/uL (3.50-5.40) Hemoglobin 8.5 g/dL (12.0-15.5) Hematocrit 25.1 % (36.0-47.0) Mean Corpuscular Volume 86 fL (79-100) Mean Corpuscular Hemoglobin 29 pg (25-35) Mean Corpuscular Hemoglobin Concent 34 g/dL (31-37) Red Cell Distribution Width 14.7 % (11.5-14.5) Platelet Count 262 x10^3/uL (140-400) Sodium Level 136 mmol/L (136-145) Potassium Level 4.5 mmol/L (3.5-5.1) Chloride Level 105 mmol/L (98-107) Carbon Dioxide Level 22 mmol/L (21-32) Anion Gap 9 (6-14) Blood Urea Nitrogen 19 mg/dL (7-20) Creatinine 3.3 mg/dL (0.6-1.0) Estimated GFR (Cockcroft-Gault) 19.7 Glucose Level 187 mg/dL (70-99) Calcium Level 7.9 mg/dL (8.5-10.1) Glucose (Fingerstick) 178 mg/dL (70-99) Laboratory Tests Test 07/09/19 11:19 07/09/19 17:13 07/09/19 23:34 07/10/19 06:05 Glucose (Fingerstick) 118 mg/dL (70-99) 218 mg/dL (70-99) 116 mg/dL (70-99) White Blood Count 6.7 x10^3/uL (4.0-11.0) Red Blood Count 2.91 x10^6/uL (3.50-5.40) Hemoglobin 8.5 g/dL (12.0-15.5) Hematocrit 25.1 % (36.0-47.0) Mean Corpuscular Volume 86 fL (79-100) Mean Corpuscular Hemoglobin 29 pg (25-35) Mean Corpuscular Hemoglobin Concent 34 g/dL (31-37) Red Cell Distribution Width 14.7 % (11.5-14.5) Platelet Count 262 x10^3/uL (140-400) Sodium Level 136 mmol/L (136-145) Potassium Level 4.5 mmol/L (3.5-5.1) Chloride Level 105 mmol/L (98-107) Carbon Dioxide Level 22 mmol/L (21-32) Anion Gap 9 (6-14) Blood Urea Nitrogen 19 mg/dL (7-20) Creatinine 3.3 mg/dL (0.6-1.0) Estimated GFR (Cockcroft-Gault) 19.7 Glucose Level 187 mg/dL (70-99) Calcium Level 7.9 mg/dL (8.5-10.1) Test 07/10/19 07:45 Glucose (Fingerstick) 178 mg/dL (70-99) Microbiology 07/08/19 Blood Culture - Preliminary, Resulted NO GROWTH AFTER 1 DAY Medications Current Medications Sodium Chloride 1,000 ml @ 1,000 mls/hr 1X ONCE IV Last administered on 07/07/19 18:47; Start 07/07/19 at 19:00; Stop 07/07/19 at 19:59; Status DC Prochlorperazine Edisylate (Compazine) 10 mg 1X ONCE IV Last administered on 07/07/19 18:50; Start 07/07/19 at 19:00; Stop 07/07/19 at 19:01; Status DC Fentanyl Citrate (Fentanyl 2ml Vial) 50 mcg 1X ONCE IV Last administered on 07/07/19 18:48; Start 07/07/19 at 19:00; Stop 07/07/19 at 19:01; Status DC Lorazepam (Ativan Inj) 1 mg 1X ONCE IV Last administered on 07/07/19 18:50; Start 07/07/19 at 19:00; Stop 07/07/19 at 19:01; Status DC Pantoprazole Sodium (PROTONIX VIAL for IV PUSH) 40 mg 1X ONCE IVP Last adm inistered on 07/07/19at 20:10; Start 07/07/19 at 20:30; Stop 07/07/19 at 20:31; Status DC Sodium Chloride 1,000 ml @ 1,000 mls/hr 1X ONCE IV Last administered on 07/07/19 20:11; Start 07/07/19 at 21:00; Stop 07/07/19 at 21:59; Status DC Hydralazine HCl (Apresoline Inj) 10 mg 1X ONCE IVP Last administered on 07/07/19 20:40; Start 07/07/19 at 20:30; Stop 07/07/19 at 20:31; Status DC Ondansetron HCl (Zofran) 4 mg PRN Q8HRS PRN IV NAUSEA/VOMITING 1ST CHOICE; Start 07/07/19 at 22:15; Stop 07/08/19 at 22:14; Status Cancel Fentanyl Citrate (Fentanyl 2ml Vial) 50 mcg PRN Q4HRS PRN IVP SEVERE PAIN 7-10 Last administered on 07/10/19 07:56; Start 07/07/19 at 22:45 Prochlorperazine Edisylate (Compazine) 10 mg PRN Q6HRS PRN IV NAUSEA/VOMITING 1ST CHOICE Last administered on 07/08/19 08:25; Start 07/08/19 at 03:30 Insulin Human Lispro (HumaLOG) 0-5 UNITS TIDWMEALS SQ Last administered on 07/09/19 08:53; Start 07/08/19 at 08:00 Dextrose (Dextrose 50%-Water Syringe) 12.5 gm PRN Q15MIN PRN IV SEE COMMENTS; Start 07/08/19 at 04:00 Hydralazine HCl (Apresoline) 50 mg TID PO Last administered on 07/10/19 07:53; Start 07/08/19 at 09:00 Carvedilol (Coreg) 25 mg BIDWMEALS PO Last administered on 07/10/19 07:53; Start 07/08/19 at 09:00 Insulin Glargine (Lantus Syringe) 25 unit QHS SQ ; Start 07/08/19 at 21:00 Pantoprazole Sodium (Protonix) 40 mg DAILY PO Last administered on 07/10/19 07:53; Start 07/08/19 at 13:00 Polyethylene Glycol (miraLAX PACKET) 17 gm BID PO Last administered on 07/10/19 07:55; Start 07/08/19 at 21:00 Citalopram Hydrobromide (CeleXA) 40 mg DAILY PO Last administered on 07/10/19 07:52; Start 07/08/19 at 13:00 Insulin Human Lispro (HumaLOG) 4 units TIDWMEALS SQ Last administered on 07/09/19 17:19; Start 07/08/19 at 12:05 Promethazine HCl (Phenergan) 25 mg PRN Q6HRS PRN PO NAUSEA/VOMITING Last administered on 07/08/19 21:41; Start 07/08/19 at 12:15 Sodium Chloride 1,000 ml @ 100 mls/hr Q10H IV Last administered on 07/10/19 06:13; Start 07/08/19 at 12:15 Heparin Sodium (Porcine) (Heparin Sodium) 5,000 unit Q8HRS SQ Last administered on 07/10/19 06:21; Start 07/08/19 at 14:00 Ceftriaxone Sodium (Rocephin) 1 gm Q24H IVP Last administered on 07/09/19 13:52; Start 07/08/19 at 12:30 Sodium Chloride (Normal Saline Flush) 3 ml QSHIFT PRN IV AFTER MEDS AND BLOOD DRAWS; Start 07/08/19 at 13:00 Acetaminophen (Tylenol) 650 mg PRN Q4HRS PRN PO TEMP OVER 100.4F OR MILD PAIN Last administered on 07/10/19 06:13; Start 07/08/19 at 13:00 Clonidine HCl (Catapres) 0.1 mg PRN Q6HRS PRN PO SBP>160 OR DBP>90 Last administered on 07/10/19 03:39; Start 07/08/19 at 13:00 Docusate Sodium (Colace) 100 mg PRN BID PRN PO HARD STOOLS; Start 07/08/19 at 13:00 Albuterol Sulfate (Ventolin Neb Soln) 2.5 mg PRN Q4HRS PRN NEB SHORTNESS OF BREATH; Start 07/08/19 at 13:00 Lorazepam (Ativan) 0.5 mg PRN Q4HRS PRN PO ANXIETY / AGITATION Last administered on 07/10/19 02:41; Start 07/08/19 at 13:00 Lactobacillus Rhamnosus (Culturelle) 1 cap BID PO Last administered on 07/10/19at 07:55; Start 07/08/19 at 21:00 Tramadol HCl (Ultram) 50 mg PRN Q6HRS PRN PO PAIN Last administered on 07/09/19 21:18; Start 07/08/19 at 18:15 Glucose (Insta-Glucose) 15 gm STK-MED ONCE .ROUTE ; Start 07/08/19 at 21:23; Stop 07/08/19 at 21:23; Status DC Glucose (Insta-Glucose) 15 gm PRN Q15MIN PRN PO LOW BLOOD SUGAR Last administered on 07/08/19at 21:30; Start 07/08/19 at 21:30 Lubiprostone (Amitiza) 24 mcg BIDWMEALS PO Last administered on 07/10/19at 07:53; Start 07/09/19 at 17:00 Amlodipine Besylate (Norvasc) 10 mg DAILY PO Last administered on 07/10/19at 07:55; Start 07/09/19 at 14:17 Clonidine HCl (Catapres) 0.1 mg Q8HRS PO Last administered on 07/10/19at 06:13; Start 07/09/19 at 16:30 Diphenhydramine HCl (Benadryl) 25 mg PRN QHS PRN PO INSOMNIA; Start 07/10/19 at 04:00 Diphenhydramine HCl (Benadryl) 25 mg 1X PRN PRN PO INSOMNIA; Start 07/10/19 at 04:00 Cyclobenzaprine HCl (Flexeril) 10 mg PRN Q6HRS PRN PO MUSCLE SPASMS Last administered on 07/10/19at 06:12; Start 07/10/19 at 04:00 Active Scripts Active Reported Amlodipine Besylate 10 Mg Tablet 10 Mg PO DAILY Hydralazine Hcl 50 Mg Tablet 1 Tab PO TID Carvedilol 25 Mg Tablet 25 Mg PO BIDWMEALS Promethazine Hcl 25 Mg Tablet 1 Tab PO PRN Q6HRS Miralax (Polyethylene Glycol 3350) 17 Gm Powd.pack 1 Packet PO BID Lantus (Insulin Glargine,Hum.rec.anlog) 100 Unit/1 Ml Vial 25 Unit SQ QHS Novolog (Insulin Aspart) 100 Unit/1 Ml Cartridge 4 Unit SQ TID Lexapro (Escitalopram Oxalate) 20 Mg Tablet 1 Tab PO DAILY Tramadol Hcl 50 Mg Tablet 1 Tab PO PRN Q6HRS Pantoprazole Sodium (Pantoprazole Sodium) 40 Mg Tablet.dr 1 Tab PO DAILY Dicyclomine Hcl 10 Mg Capsule 1 Cap PO TID Vitals/I & O Vital Sign - Last 24 Hours 07/09/19 07/09/19 07/09/19 07/09/19 11:01 11:08 11:43 12:13 Temp 97.8 97.8 Pulse 73 73 Resp 18 18 18 B/P (MAP) 189/105 (133) 189/105 Pulse Ox 99 O2 Delivery Room Air Room Air 07/09/19 07/09/19 07/09/19 11/11/19 13:53 14:22 14:28 14:39 Temp 97.7 97.7 Pulse 77 77 77 Resp 18 18 B/P (MAP) 193/111 165/110 165/110 (128) Pulse Ox 98 O2 Delivery Room Air 07/09/19 07/09/19 07/09/19 07/09/19 15:28 15:40 16:10 16:26 Pulse 76 Resp 18 18 16 B/P (MAP) 130/91 O2 Delivery Room Air Room Air Room Air 07/09/19 07/09/19 07/09/19 07/09/19 17:17 20:00 20:00 21:19 Temp 98.2 98.2 Pulse 76 72 72 Resp 18 B/P (MAP) 130/91 137/84 (101) 137/84 Pulse Ox 96 O2 Delivery Room Air Room Air 07/09/19 07/10/19 07/10/19 07/10/19 23:25 00:11 03:16 03:39 Temp 98.4 97.7 98.4 97.7 Pulse 72 72 69 69 Resp 16 18 B/P (MAP) 160/78 (105) 160/78 174/120 (138) 174/120 Pulse Ox 94 96 O2 Delivery Room Air Room Air 07/10/19 07/10/19 07/10/19 07/10/19 04:01 04:41 06:13 07:15 Temp 97.8 97.8 Pulse 69 77 Resp 20 B/P (MAP) 174/120 176/106 (129) Pulse Ox 98 O2 Delivery Room Air Room Air Room Air 07/10/19 07/10/19 07/10/19 07/10/19 07:53 07:53 07:55 07:56 Pulse 92 94 94 B/P (MAP) 176/106 176/106 176/106 O2 Delivery Room Air Intake and Output 07/09/19 07/09/19 07/10/19 15:00 23:00 07:00 Intake Total 680 ml 1600 ml 950 ml Balance 680 ml 1600 ml 950 ml GINA PIÑA MD Jul 10, 2019 09:01
--- NOTE | 2019-07-10 10:20 | PDOC ---
Subjective: Subjective: Left flank pain with movement. Not much appetite but no n/v. Hasn't stooled. Objective: Objective: Reviewed w/ nurse - asked for Dilaudid for flank pain. Vital Signs: Vital Signs Date Time Temp Pulse Resp B/P (MAP) Pulse Ox O2 Delivery O2 Flow Rate FiO2 07/10/19 09:02 Room Air 07/10/19 07:55 94 176/106 07/10/19 07:15 97.8 20 98 97.8 Labs: Laboratory Tests Test 07/09/19 11:19 07/09/19 17:13 07/09/19 23:34 07/10/19 07:45 Glucose (Fingerstick) 118 mg/dL (70-99) 218 mg/dL (70-99) 116 mg/dL (70-99) 178 mg/dL (70-99) Imaging: CT A/P 07/07/19 IMPRESSION: 1. No nephrolithiasis or hydronephrosis. 2. Left adrenal gland nodule increase in size from previous exam from 2012 likely adenoma. Nonemergent MRI of the abdomen recommended. 3. Normal appendix. 4. Circumferential urinary bladder wall thickening may be secondary to subacute distention or cystitis. Clinically correlate with urinalysis. PE: GEN: NAD LUNGS: CTAB HEART: RRR ABD: left flank tenderness to light touch, abdomen soft, mild tenderness along left ribs NEURO/PSYCH: A & O 3 - less perky today A/P: Left flank pain Decreased appetite - h/o gastroparesis, +cannabinoids H/o constipation HTN, CKD, DM, ACD -- Previous CT as above - left adrenal nodule and urinary bladder wall thickening, no hydronephrosis or nephrolithiasis. Remains hypertensive. Change to ADA diet w/ 6 small meals daily (gastroparesis diet). Continue PPI, Miralax, Amitiza. Add Dulcolax, consider Relistor if indicated. JANICE JACOBO Jul 10, 2019 10:20
[2019-07-10] MEDS ORDERED: BISACODYL 5 MG TABLET.DR. PO ONE (10:30)
--- NOTE | 2019-07-10 10:46 | PDOC ---
Renal-Progress Notes Subjective Notes Notes NO NEW COMPLAINTS History of Present Illness Hx of present illness STABLE Vitals Vitals Vital Signs Date Time Temp Pulse Resp B/P (MAP) Pulse Ox O2 Delivery O2 Flow Rate FiO2 07/10/19 09:02 Room Air 07/10/19 07:55 94 176/106 07/10/19 07:15 97.8 20 98 97.8 Weight Weight [ ] I.O. Intake and Output Intake and Output 07/10/19 07:00 Intake Total 3230 ml Balance 3230 ml Intake Oral 2230 ml IV Total 1000 ml # Voids 8 Labs Labs Laboratory Tests Test 07/09/19 11:19 07/09/19 17:13 07/09/19 23:34 07/10/19 06:05 Glucose (Fingerstick) 118 mg/dL (70-99) 218 mg/dL (70-99) 116 mg/dL (70-99) White Blood Count 6.7 x10^3/uL (4.0-11.0) Red Blood Count 2.91 x10^6/uL (3.50-5.40) Hemoglobin 8.5 g/dL (12.0-15.5) Hematocrit 25.1 % (36.0-47.0) Mean Corpuscular Volume 86 fL (79-100) Mean Corpuscular Hemoglobin 29 pg (25-35) Mean Corpuscular Hemoglobin Concent 34 g/dL (31-37) Red Cell Distribution Width 14.7 % (11.5-14.5) Platelet Count 262 x10^3/uL (140-400) Sodium Level 136 mmol/L (136-145) Potassium Level 4.5 mmol/L (3.5-5.1) Chloride Level 105 mmol/L (98-107) Carbon Dioxide Level 22 mmol/L (21-32) Anion Gap 9 (6-14) Blood Urea Nitrogen 19 mg/dL (7-20) Creatinine 3.3 mg/dL (0.6-1.0) Estimated GFR (Cockcroft-Gault) 19.7 Glucose Level 187 mg/dL (70-99) Calcium Level 7.9 mg/dL (8.5-10.1) Test 07/10/19 07:45 07/10/19 10:30 Glucose (Fingerstick) 178 mg/dL (70-99) 130 mg/dL (70-99) Micro Micro Microbiology 07/08/19 Blood Culture - Preliminary, Resulted NO GROWTH AFTER 1 DAY Physical Exam General Appearance: no apparent distress Skin: warm Respiratory: bilateral CTA Heart: S1S2 Abdomen: soft, bowel sounds present Genitourinary: bladder flat Extremities: pulses present Neurology: alert Assessment Assessment IMP CKD STAGE 4 WITH FINANCIAL ADVOCATE F 3.3 EXTRACELLULAR VOLUME DEPLETION LEFT ADRENAL GLAND NODULE-PROB ADENOMA-1ST NOTED IN 2012-BIGGER NOW GASTROENTERITIS DM II-LABILE HTN-NOT CONTROLLED ANEMIA OF CKD SUSPECT NON COMPLIANCE PLAN CR C/W STAGE 4 CKD. AVOID NEPHROTOXINS CONT WITH HYDRATION INCREASE CLONIDINE WILL FOLLOW ANNA ROSE MD Jul 10, 2019 10:46
[2019-07-10] MEDS: hydrALAZINE 25 MG TABLET PO SCH ×3 (11:00→21:04)
[2019-07-10] MEDS: traMADol 50 MG TABLET PO PRN ×2 (11:13→19:12)
[2019-07-10] MEDS: cefTRIAXone IV Push 1 GM VIAL. IVP SCH (12:40)
--- NOTE | 2019-07-10 13:55 | PDOC2 ---
CONSULT Date of Consult Date of Consult DATE: 07/10/19 TIME: 13:51 Reason for Consult Reason for Consult: Left pelvic/ flank pain History of Present Illness Reason for Visit: HPI: 33y admitted to the hospital for diffuse abdominal pain, N/V/D over the course of two days. The pts h/o is significant for type I DM, HTN and ESRD. Since being admitted on 07/08/19 she feels like her N/V has improved but she still has persistent pain. The pain begins in her left flank but does have a component that is located in her LLQ. The pt underwent a CT on 07/07. The eval of the abd and pelvis was somewhat limited b/c they were unable to use IV contrast. They were able to identify that the left adrenal gland nodule had increase in size from previous exam from 2012 (thought to be an adenoma). They also reported that the bladder had some thickening consistent with a subacute distention or cystitis. GI and nephrology were consulted. She reported a gastroparesis along with her DM. It was thought that the N/V may have been related to the gastroparesis. At the same time, it was thought that some of the symptoms could also be related to a superimposed enteritis or peptic disease could also be playing a role. The pt was initially started on Rocephin for a possible UTI. Her UCxs have NGTD. She initially had a slight left shift but since admission at has returned to nml. Her WBC has remained nml throughout her hospitalization. As noted above her imaging of her bladder was thought that it may be secondary to a cystitis. With the persistent pelvic/flank pain an u/s was ordered. Over the course of her hospitalization her BP and FSBS have been labial. Her Cr on admission was 4.1 but since has returned to her reported baseline of 2.5-3.2. 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) Menarche 15yo / cycles regular intervals Past Medical History Cardiovascular: HTN GI: Other (gastroparesis) Psych: Addictions Renal/: Chronic renal insuff, Chronic renal failure Endocrine: Diabetes Family History Family History: Hypertension Social History No ALCOHOL: none Drugs: Marijuana Current Problem List Problem List Problems Medical Problems: (1) End stage renal disease Status: Acute (2) Vomiting Status: Acute Current Medications Current Medications Current Medications Sodium Chloride 1,000 ml @ 1,000 mls/hr 1X ONCE IV Last administered on 07/07/19 18:47; Start 07/07/19 at 19:00; Stop 07/07/19 at 19:59; Status DC Prochlorperazine Edisylate (Compazine) 10 mg 1X ONCE IV Last administered on 07/07/19 18:50; Start 07/07/19 at 19:00; Stop 07/07/19 at 19:01; Status DC Fentanyl Citrate (Fentanyl 2ml Vial) 50 mcg 1X ONCE IV Last administered on 07/07/19 18:48; Start 07/07/19 at 19:00; Stop 07/07/19 at 19:01; Status DC Lorazepam (Ativan Inj) 1 mg 1X ONCE IV Last administered on 07/07/19 18:50; Start 07/07/19 at 19:00; Stop 07/07/19 at 19:01; Status DC Pantoprazole Sodium (PROTONIX VIAL for IV PUSH) 40 mg 1X ONCE IVP Last administered on 07/07/19at 20:10; Start 07/07/19 at 20:30; Stop 07/07/19 at 20:31; Status DC Sodium Chloride 1,000 ml @ 1,000 mls/hr 1X ONCE IV Last administered on 07/07/19at 20:11; Start 07/07/19 at 21:00; Stop 07/07/19 at 21:59; Status DC Hydralazine HCl (Apresoline Inj) 10 mg 1X ONCE IVP Last administered on 07/07/19at 20:40; Start 07/07/19 at 20:30; Stop 07/07/19 at 20:31; Status DC Ondansetron HCl (Zofran) 4 mg PRN Q8HRS PRN IV NAUSEA/VOMITING 1ST CHOICE; Start 07/07/19 at 22:15; Stop 07/08/19 at 22:14; Status Cancel Fentanyl Citrate (Fentanyl 2ml Vial) 50 mcg PRN Q4HRS PRN IVP SEVERE PAIN 7-10 Last administered on 07/10/19 12:41; Start 07/07/19 at 22:45 Prochlorperazine Edisylate (Compazine) 10 mg PRN Q6HRS PRN IV NAUSEA/VOMITING 1ST CHOICE Last administered on 07/08/19 08:25; Start 07/08/19 at 03:30 Insulin Human Lispro (HumaLOG) 0-5 UNITS TIDWMEALS SQ Last administered on 07/10/19 09:01; Start 07/08/19 at 08:00 Dextrose (Dextrose 50%-Water Syringe) 12.5 gm PRN Q15MIN PRN IV SEE COMMENTS; Start 07/08/19 at 04:00 Hydralazine HCl (Apresoline) 50 mg TID PO Last administered on 07/10/19 07:53; Start 07/08/19 at 09:00; Stop 07/10/19 at 10:50; Status DC Carvedilol (Coreg) 25 mg BIDWMEALS PO Last administered on 07/10/19 07:53; Start 07/08/19 at 09:00 Insulin Glargine (Lantus Syringe) 25 unit QHS SQ ; Start 07/08/19 at 21:00 Pantoprazole Sodium (Protonix) 40 mg DAILY PO Last administered on 07/10/19 07:53; Start 07/08/19 at 13:00 Polyethylene Glycol (miraLAX PACKET) 17 gm BID PO Last administered on 07/10/19 07:55; Start 07/08/19 at 21:00 Citalopram Hydrobromide (CeleXA) 40 mg DAILY PO Last administered on 07/10/19 07:52; Start 07/08/19 at 13:00 Insulin Human Lispro (HumaLOG) 4 units TIDWMEALS SQ Last administered on 07/09/19 17:19; Start 07/08/19 at 12:05 Promethazine HCl (Phenergan) 25 mg PRN Q6HRS PRN PO NAUSEA/VOMITING Last administered on 07/08/19 21:41; Start 07/08/19 at 12:15 Sodium Chloride 1,000 ml @ 100 mls/hr Q10H IV Last administered on 07/10/19 06:13; Start 07/08/19 at 12:15 Heparin Sodium (Porcine) (Heparin Sodium) 5,000 unit Q8HRS SQ Last administered on 07/10/19at 06:21; Start 07/08/19 at 14:00 Ceftriaxone Sodium (Rocephin) 1 gm Q24H IVP Last administered on 07/10/19at 12:40; Start 07/08/19 at 12:30 Sodium Chloride (Normal Saline Flush) 3 ml QSHIFT PRN IV AFTER MEDS AND BLOOD DRAWS; Start 07/08/19 at 13:00 Acetaminophen (Tylenol) 650 mg PRN Q4HRS PRN PO TEMP OVER 100.4F OR MILD PAIN Last administered on 07/10/19at 06:13; Start 07/08/19 at 13:00 Clonidine HCl (Catapres) 0.1 mg PRN Q6HRS PRN PO SBP>160 OR DBP>90 Last administered on 07/10/19at 03:39; Start 07/08/19 at 13:00 Docusate Sodium (Colace) 100 mg PRN BID PRN PO HARD STOOLS; Start 07/08/19 at 13:00 Albuterol Sulfate (Ventolin Neb Soln) 2.5 mg PRN Q4HRS PRN NEB SHORTNESS OF BREATH; Start 07/08/19 at 13:00 Lorazepam (Ativan) 0.5 mg PRN Q4HRS PRN PO ANXIETY / AGITATION Last administered on 07/10/19at 02:41; Start 07/08/19 at 13:00 Lactobacillus Rhamnosus (Culturelle) 1 cap BID PO Last administered on 07/10/19at 07:55; Start 07/08/19 at 21:00 Tramadol HCl (Ultram) 50 mg PRN Q6HRS PRN PO PAIN Last administered on 9at 11:13; Start 07/08/19 at 18:15 Glucose (Insta-Glucose) 15 gm STK-MED ONCE .ROUTE ; Start 07/08/19 at 21:23; Stop 07/08/19 at 21:23; Status DC Glucose (Insta-Glucose) 15 gm PRN Q15MIN PRN PO LOW BLOOD SUGAR Last administered on 07/08/19at 21:30; Start 07/08/19 at 21:30 Lubiprostone (Amitiza) 24 mcg BIDWMEALS PO Last administered on 07/10/19at 07:53; Start 07/09/19 at 17:00 Amlodipine Besylate (Norvasc) 10 mg DAILY PO Last administered on 07/10/19at 07:55; Start 07/09/19 at 14:17 Clonidine HCl (Catapres) 0.1 mg Q8HRS PO Last administered on 07/10/19at 06:13; Start 07/09/19 at 16:30; Stop 07/10/19 at 10:47; Status DC Diphenhydramine HCl (Benadryl) 25 mg PRN QHS PRN PO INSOMNIA; Start 07/10/19 at 04:00 Diphenhydramine HCl (Benadryl) 25 mg 1X PRN PRN PO INSOMNIA; Start 07/10/19 at 04:00 Cyclobenzaprine HCl (Flexeril) 10 mg PRN Q6HRS PRN PO MUSCLE SPASMS Last administered on 07/10/19at 11:13; Start 07/10/19 at 04:00 Bisacodyl (Dulcolax Tab) 10 mg 1X ONCE PO ; Start 07/10/19 at 10:30; Stop 07/10/19 at 10:31; Status DC Clonidine HCl (Catapres) 0.2 mg Q8HRS PO ; Start 07/10/19 at 11:00 Clonidine HCl (Catapres) 0.2 mg Q8HRS PO ; Start 07/10/19 at 14:00; Status UNV Hydralazine HCl (Apresoline) 75 mg TID PO ; Start 07/10/19 at 11:00 Diphenhydramine HCl (Benadryl) 25 mg PRN QHS PRN PO INSOMNIA; Start 07/10/19 at 11:00 Active Scripts Active Reported Amlodipine Besylate 10 Mg Tablet 10 Mg PO DAILY Hydralazine Hcl 50 Mg Tablet 1 Tab PO TID Carvedilol 25 Mg Tablet 25 Mg PO BIDWMEALS Promethazine Hcl 25 Mg Tablet 1 Tab PO PRN Q6HRS Miralax (Polyethylene Glycol 3350) 17 Gm Powd.pack 1 Packet PO BID Lantus (Insulin Glargine,Hum.rec.anlog) 100 Unit/1 Ml Vial 25 Unit SQ QHS Novolog (Insulin Aspart) 100 Unit/1 Ml Cartridge 4 Unit SQ TID Lexapro (Escitalopram Oxalate) 20 Mg Tablet 1 Tab PO DAILY Tramadol Hcl 50 Mg Tablet 1 Tab PO PRN Q6HRS Pantoprazole Sodium (Pantoprazole Sodium) 40 Mg Tablet.dr 1 Tab PO DAILY Dicyclomine Hcl 10 Mg Capsule 1 Cap PO TID Allergies Allergies: Coded Allergies: ondansetron (Unverified Allergy, Severe, edema, 07/07/19) ketorolac (Unverified Allergy, Intermediate, hives, 07/07/19) morphine (Unverified Allergy, Intermediate, hives, 07/07/19) Physical Exam Physical Exam Pelvic: not necessary at this time General: Alert, Oriented X3, No acute distress Lungs: Clear to auscultation Heart: Regular rate Abdomen: Other (tender in LLQ, no rebound or guarding) Extremities: No clubbing, No cyanosis Vitals VITALS Vital Signs Date Time Temp Pulse Resp B/P (MAP) Pulse Ox O2 Delivery O2 Flow Rate FiO2 07/10/19 13:22 Room Air 07/10/19 11:01 97.5 72 18 111/75 (87) 99 97.5 Labs Labs Laboratory Tests Test 07/08/19 14:20 07/08/19 17:13 07/08/19 20:55 07/08/19 21:19 Creatinine 3.3 mg/dL (0.6-1.0) 3.4 mg/dL (0.6-1.0) Estimated GFR (Cockcroft-Gault) 19.7 19.1 Glucose (Fingerstick) 159 mg/dL (70-99) 42 mg/dL (70-99) Glucose Level 53 mg/dL (70-99) Test 07/08/19 21:38 07/09/19 02:57 07/09/19 04:05 07/09/19 07:53 Glucose (Fingerstick) 106 mg/dL (70-99) 230 mg/dL (70-99) 146 mg/dL (70-99) White Blood Count 5.9 x10^3/uL (4.0-11.0) Red Blood Count 2.90 x10^6/uL (3.50-5.40) Hemoglobin 8.5 g/dL (12.0-15.5) Hematocrit 25.2 % (36.0-47.0) Mean Corpuscular Volume 87 fL (79-100) Mean Corpuscular Hemoglobin 29 pg (25-35) Mean Corpuscular Hemoglobin Concent 34 g/dL (31-37) Red Cell Distribution Width 15.0 % (11.5-14.5) Platelet Count 247 x10^3/uL (140-400) Neutrophils (%) (Auto) 51 % (31-73) Lymphocytes (%) (Auto) 39 % (24-48) Monocytes (%) (Auto) 8 % (0-9) Eosinophils (%) (Auto) 1 % (0-3) Basophils (%) (Auto) 1 % (0-3) Neutrophils # (Auto) 3.0 x10^3/uL (1.8-7.7) Lymphocytes # (Auto) 2.3 x10^3/uL (1.0-4.8) Monocytes # (Auto) 0.5 x10^3/uL (0.0-1.1) Eosinophils # (Auto) 0.1 x10^3/uL (0.0-0.7) Basophils # (Auto) 0.1 x10^3/uL (0.0-0.2) Sodium Level 136 mmol/L (136-145) Potassium Level 4.6 mmol/L (3.5-5.1) Chloride Level 104 mmol/L (98-107) Carbon Dioxide Level 23 mmol/L (21-32) Anion Gap 9 (6-14) Blood Urea Nitrogen 20 mg/dL (7-20) Creatinine 3.4 mg/dL (0.6-1.0) Estimated GFR (Cockcroft-Gault) 19.1 BUN/Creatinine Ratio 6 (6-20) Glucose Level 229 mg/dL (70-99) Calcium Level 8.0 mg/dL (8.5-10.1) Iron Level 45 ug/dL (50-170) Total Iron Binding Capacity 191 ug/dL (250-450) Iron Saturation 24 % (15-34) Total Bilirubin 0.1 mg/dL (0.2-1.0) Aspartate Amino Transf (AST/SGOT) 11 U/L (15-37) Alanine Aminotransferase (ALT/SGPT) 9 U/L (14-59) Alkaline Phosphatase 103 U/L (46-116) Total Protein 6.5 g/dL (6.4-8.2) Albumin 2.8 g/dL (3.4-5.0) Albumin/Globulin Ratio 0.8 (1.0-1.7) Test 07/09/19 11:19 07/09/19 17:13 07/09/19 23:34 07/10/19 06:05 Glucose (Fingerstick) 118 mg/dL (70-99) 218 mg/dL (70-99) 116 mg/dL (70-99) White Blood Count 6.7 x10^3/uL (4.0-11.0) Red Blood Count 2.91 x10^6/uL (3.50-5.40) Hemoglobin 8.5 g/dL (12.0-15.5) Hematocrit 25.1 % (36.0-47.0) Mean Corpuscular Volume 86 fL (79-100) Mean Corpuscular Hemoglobin 29 pg (25-35) Mean Corpuscular Hemoglobin Concent 34 g/dL (31-37) Red Cell Distribution Width 14.7 % (11.5-14.5) Platelet Count 262 x10^3/uL (140-400) Sodium Level 136 mmol/L (136-145) Potassium Level 4.5 mmol/L (3.5-5.1) Chloride Level 105 mmol/L (98-107) Carbon Dioxide Level 22 mmol/L (21-32) Anion Gap 9 (6-14) Blood Urea Nitrogen 19 mg/dL (7-20) Creatinine 3.3 mg/dL (0.6-1.0) Estimated GFR (Cockcroft-Gault) 19.7 Glucose Level 187 mg/dL (70-99) Calcium Level 7.9 mg/dL (8.5-10.1) Test 07/10/19 07:45 07/10/19 10:30 Glucose (Fingerstick) 178 mg/dL (70-99) 130 mg/dL (70-99) Laboratory Tests Test 07/09/19 17:13 07/09/19 23:34 07/10/19 06:05 07/10/19 07:45 Glucose (Fingerstick) 218 mg/dL (70-99) 116 mg/dL (70-99) 178 mg/dL (70-99) White Blood Count 6.7 x10^3/uL (4.0-11.0) Red Blood Count 2.91 x10^6/uL (3.50-5.40) Hemoglobin 8.5 g/dL (12.0-15.5) Hematocrit 25.1 % (36.0-47.0) Mean Corpuscular Volume 86 fL (79-100) Mean Corpuscular Hemoglobin 29 pg (25-35) Mean Corpuscular Hemoglobin Concent 34 g/dL (31-37) Red Cell Distribution Width 14.7 % (11.5-14.5) Platelet Count 262 x10^3/uL (140-400) Sodium Level 136 mmol/L (136-145) Potassium Level 4.5 mmol/L (3.5-5.1) Chloride Level 105 mmol/L (98-107) Carbon Dioxide Level 22 mmol/L (21-32) Anion Gap 9 (6-14) Blood Urea Nitrogen 19 mg/dL (7-20) Creatinine 3.3 mg/dL (0.6-1.0) Estimated GFR (Cockcroft-Gault) 19.7 Glucose Level 187 mg/dL (70-99) Calcium Level 7.9 mg/dL (8.5-10.1) Test 07/10/19 10:30 Glucose (Fingerstick) 130 mg/dL (70-99) Assessment/Plan Assessment/Plan A/P 33y with left pelvic/ flank pain 1.) Left pelvic/ flank pain plastic boat buffer ddx would include dx like PID, TOA, ovarian (ruptured, torsion, etc). Based on the information obtained so far plastic boat buffer source not likely at this time. The pt has been without a WBC during the hospitalization. The previous imaging was limited, so an u/s has been ordered to better characterize pelvic anatomy and investigate for structural causes of pain. Will review when it returns. Pain may be likely 2/2 gastroparesis or pr evious N/V. Pt also currently being tx for possible UTI with Rocephin. 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
[2019-07-10] MEDS ORDERED: cloNIDine HCL 0.1 MG TABLET PO SCH (14:00)
--- NOTE | 2019-07-10 14:58 | RAD ---
Examination: PELVIS W/TV History: Pelvic, abdominal, flank pain Comparison/Correlation: None Findings: Transabdominal and transvaginal pelvic ultrasound exam was performed. Transvaginal technique was utilized to better assess the adnexal structures. Uterus is retroverted. Uterus measures 6.7 cm x 4.1 cm x 6 cm. Endometrial thickness is 0.2 cm myometrium is unremarkable. Right ovary measures 2.7 cm x 1.9 cm x 3 cm. Left ovary measures 3.1 cm x 2.3 cm x 2.3 cm. Adnexal follicles are present bilaterally. Normal ovarian flow is evident on color and spectral Doppler imaging. No suspicious adnexal mass lesion. Small amount of pelvic free fluid identified. Impression: No suspicious process. Electronically signed by: Alex Shahid MD (07/10/2019 2:55 PM) [facility]
[2019-07-10] MEDS: cloNIDine HCL 0.2 MG TABLET PO SCH ×2 (15:17→22:00)
[2019-07-10 16:58] LABS: CREATININE,RANDOM URINE 43.1 mg/dL (Not Establ.)
[2019-07-10] MEDS: diphenhydrAMINE HCL 25 MG CAPSULE PO PRN (21:04)
[2019-07-10] MEDS: INSULIN GLARGINE SYRINGE. SQ SCH (21:09)
[2019-07-11] MEDS: fentaNYL PF VIAL 100 MCG/2 ML VIAL IVP PRN ×4 (02:34→21:56)
[2019-07-11] MEDS: IV NORMAL SALINE 1000ML BAG 1,000 ML IV SCH ×3 (02:37→20:15)
[2019-07-11 02:47] VITALS: BP 175/97
[2019-07-11] MEDS: cloNIDine HCL 0.1 MG TABLET PO PRN (02:48)
[2019-07-11] MEDS: cloNIDine HCL 0.2 MG TABLET PO SCH (05:05)
[2019-07-11] MEDS: HEPARIN for SUB-Q USE 5,000 UNIT/ML VIAL. SQ SCH ×3 (05:13→21:23)
[2019-07-11 05:19] LABS: CALCIUM 8.2 mg/dL (8.5-10.1); CREATININE 3.3 mg/dL (0.6-1.0); GFR 19.7; POTASSIUM 4.5 mmol/L (3.5-5.1)
[2019-07-11] MEDS: traMADol 50 MG TABLET PO PRN ×3 (05:23→21:20)
[2019-07-11 07:00] VITALS: BP 168/97
[2019-07-11] MEDS: INSULIN LISPRO 300 UNITS/3 ML VIAL. SQ SCH ×6 (08:00→17:00)
[2019-07-11] MEDS: hydrALAZINE 25 MG TABLET PO SCH ×3 (08:41→21:21)
[2019-07-11] MEDS: LACTOBACILLUS RHAMNOSUS GG 1 CAPSULE. PO SCH ×2 (08:41→21:20)
[2019-07-11] MEDS: amLODIPine BESYLATE 10 MG TABLET PO SCH (08:42)
[2019-07-11] MEDS: LUBIPROSTONE 24 MCG CAPSULE PO SCH ×2 (08:42→18:00)
[2019-07-11] MEDS: PANTOPRAZOLE 40 MG TABLET.DR. PO SCH (08:42)
[2019-07-11] MEDS: POLYETHYLENE GLYCOL 3350 17 GM PACKET. PO SCH ×2 (08:42→21:20)
[2019-07-11] MEDS: CARVEDILOL 12.5 MG TABLET. PO SCH ×2 (08:43→18:00)
[2019-07-11] MEDS: CITALOPRAM 20 MG TABLET. PO SCH (08:44)
--- NOTE | 2019-07-11 09:29 | PDOC ---
PROGRESS NOTES Subjective Subjective The pt states her pain is unchanged. She still has some N/V, but the diarrhea has resolved. Objective Objective Vital Signs Date Time Temp Pulse Resp B/P (MAP) Pulse Ox O2 Delivery O2 Flow Rate FiO2 07/11/19 08:52 18 96 Room Air 07/11/19 08:43 69 168/97 07/11/19 07:00 97.8 97.8 Intake and Output 07/11/19 07:00 Intake Total 1520 ml Balance 1520 ml Intake Oral 1520 ml # Voids 3 Assessment Assessment Problems Medical Problems: (1) End stage renal disease Status: Acute (2) Vomiting Status: Acute Plan Plan of Care A/P 33y with left pelvic/ flank pain 1.) Left pelvic/ flank pain pelvic u/s neg, not likely nurse gynecology in source. The pt remains without a WBC. Pain possibly related to gastroparesis or 2/2 N/V. Pt also currently being tx for possible UTI with Rocephin. 2.) ESRD stage IV, not on dialysis, nephrology consulted 3.) Anemia of CKD 4.) Proteinuria - nephrology consulted 5.) N/V improved, on empiric antiemetics therapy 6.) Diarrhea gastric occult blood positive 7.) Gastroenteritis vs gastroparesis GI consulted 8.) DM type I improved, managed by primary 9.) HTN remains difficult to control, managed by primary 10.) Suspected UTI on Rocephin, UCx NG, Bcx - NGTD 11.) H/o pancreatitis Lipase neg 12.) Left adrenal gland enlargement not emergent 13.) Will continue to follow Comment Review of Relevant I have reviewed the following items mine (where applicable) has been applied. Labs Laboratory Tests Test 07/09/19 11:19 07/09/19 17:13 07/09/19 23:34 07/10/19 06:05 Glucose (Fingerstick) 118 mg/dL (70-99) 218 mg/dL (70-99) 116 mg/dL (70-99) White Blood Count 6.7 x10^3/uL (4.0-11.0) Red Blood Count 2.91 x10^6/uL (3.50-5.40) Hemoglobin 8.5 g/dL (12.0-15.5) Hematocrit 25.1 % (36.0-47.0) Mean Corpuscular Volume 86 fL (79-100) Mean Corpuscular Hemoglobin 29 pg (25-35) Mean Corpuscular Hemoglobin Concent 34 g/dL (31-37) Red Cell Distribution Width 14.7 % (11.5-14.5) Platelet Count 262 x10^3/uL (140-400) Sodium Level 136 mmol/L (136-145) Potassium Level 4.5 mmol/L (3.5-5.1) Chloride Level 105 mmol/L (98-107) Carbon Dioxide Level 22 mmol/L (21-32) Anion Gap 9 (6-14) Blood Urea Nitrogen 19 mg/dL (7-20) Creatinine 3.3 mg/dL (0.6-1.0) Estimated GFR (Cockcroft-Gault) 19.7 Glucose Level 187 mg/dL (70-99) Calcium Level 7.9 mg/dL (8.5-10.1) Test 07/10/19 07:45 07/10/19 10:30 07/10/19 16:10 07/10/19 16:36 Glucose (Fingerstick) 178 mg/dL (70-99) 130 mg/dL (70-99) 169 mg/dL (70-99) Urine Random Creatinine 43.1 mg/dL (Not Establ.) Urine Random Total Protein 139.8 mg/dL (Not Establ.) Urine Protein/Creatinine Ratio 3244 mg/g (0-200) Test 07/10/19 20:31 07/11/19 03:50 07/11/19 07:14 Glucose (Fingerstick) 157 mg/dL (70-99) 77 mg/dL (70-99) Sodium Level 139 mmol/L (136-145) Potassium Level 4.5 mmol/L (3.5-5.1) Chloride Level 107 mmol/L (98-107) Carbon Dioxide Level 22 mmol/L (21-32) Anion Gap 10 (6-14) Blood Urea Nitrogen 20 mg/dL (7-20) Creatinine 3.3 mg/dL (0.6-1.0) Estimated GFR (Cockcroft-Gault) 19.7 Glucose Level 77 mg/dL (70-99) Calcium Level 8.2 mg/dL (8.5-10.1) Lipase 264 U/L (73-393) Laboratory Tests Test 07/10/19 10:30 07/10/19 16:10 07/10/19 16:36 07/10/19 20:31 Glucose (Fingerstick) 130 mg/dL (70-99) 169 mg/dL (70-99) 157 mg/dL (70-99) Urine Random Creatinine 43.1 mg/dL (Not Establ.) Urine Random Total Protein 139.8 mg/dL (Not Establ.) Urine Protein/Creatinine Ratio 3244 mg/g (0-200) Test 07/11/19 03:50 07/11/19 07:14 Sodium Level 139 mmol/L (136-145) Potassium Level 4.5 mmol/L (3.5-5.1) Chloride Level 107 mmol/L (98-107) Carbon Dioxide Level 22 mmol/L (21-32) Anion Gap 10 (6-14) Blood Urea Nitrogen 20 mg/dL (7-20) Creatinine 3.3 mg/dL (0.6-1.0) Estimated GFR (Cockcroft-Gault) 19.7 Glucose Level 77 mg/dL (70-99) Calcium Level 8.2 mg/dL (8.5-10.1) Lipase 264 U/L (73-393) Glucose (Fingerstick) 77 mg/dL (70-99) Microbiology 07/08/19 Blood Culture - Preliminary, Resulted NO GROWTH AFTER 2 DAYS 07/07/19 Urine Culture - Final, Complete 07/07/19 Urine Culture Result 1 (TASHI) - Final, Complete Medications Current Medications Sodium Chloride 1,000 ml @ 1,000 mls/hr 1X ONCE IV Last administered on 07/07/19at 18:47; Start 07/07/19 at 19:00; Stop 07/07/19 at 19:59; Status DC Prochlorperazine Edisylate (Compazine) 10 mg 1X ONCE IV Last administered on 07/07/19at 18:50; Start 07/07/19 at 19:00; Stop 07/07/19 at 19:01; Status DC Fentanyl Citrate (Fentanyl 2ml Vial) 50 mcg 1X ONCE IV Last administered on 07/07/19at 18:48; Start 07/07/19 at 19:00; Stop 07/07/19 at 19:01; Status DC Lorazepam (Ativan Inj) 1 mg 1X ONCE IV Last administered on 07/07/19 18:50; Start 07/07/19 at 19:00; Stop 07/07/19 at 19:01; Status DC Pantoprazole Sodium (PROTONIX VIAL for IV PUSH) 40 mg 1X ONCE IVP Last administered on 07/07/19 20:10; Start 07/07/19 at 20:30; Stop 07/07/19 at 20:31; Status DC Sodium Chloride 1,000 ml @ 1,000 mls/hr 1X ONCE IV Last administered on 07/07/19at 20:11; Start 07/07/19 at 21:00; Stop 07/07/19 at 21:59; Status DC Hydralazine HCl (Apresoline Inj) 10 mg 1X ONCE IVP Last administered on 07/07/19at 20:40; Start 07/07/19 at 20:30; Stop 07/07/19 at 20:31; Status DC Ondansetron HCl (Zofran) 4 mg PRN Q8HRS PRN IV NAUSEA/VOMITING 1ST CHOICE; Start 07/07/19 at 22:15; Stop 07/08/19 at 22:14; Status Cancel Fentanyl Citrate (Fentanyl 2ml Vial) 50 mcg PRN Q4HRS PRN IVP SEVERE PAIN 7-10 Last administered on 07/11/19 08:52; Start 07/07/19 at 22:45 Prochlorperazine Edisylate (Compazine) 10 mg PRN Q6HRS PRN IV NAUSEA/VOMITING 1ST CHOICE Last administered on 07/08/19at 08:25; Start 07/08/19 at 03:30 Insulin Human Lispro (HumaLOG) 0-5 UNITS TIDWMEALS SQ Last administered on 07/10/19 09:01; Start 07/08/19 at 08:00 Dextrose (Dextrose 50%-Water Syringe) 12.5 gm PRN Q15MIN PRN IV SEE COMMENTS; Start 07/08/19 at 04:00 Hydralazine HCl (Apresoline) 50 mg TID PO Last administered on 07/10/19 07:53; Start 07/08/19 at 09:00; Stop 07/10/19 at 10:50; Status DC Carvedilol (Coreg) 25 mg BIDWMEALS PO Last administered on 07/11/19 08:43; Start 07/08/19 at 09:00 Insulin Glargine (Lantus Syringe) 25 unit QHS SQ Last administered on 07/10/19 21:09; Start 07/08/19 at 21:00 Pantoprazole Sodium (Protonix) 40 mg DAILY PO Last administered on 07/11/19 08:42; Start 07/08/19 at 13:00 Polyethylene Glycol (miraLAX PACKET) 17 gm BID PO Last administered on 07/11/19 08:42; Start 07/08/19 at 21:00 Citalopram Hydrobromide (CeleXA) 40 mg DAILY PO Last administered on 07/11/19 08:44; Start 07/08/19 at 13:00 Insulin Human Lispro (HumaLOG) 4 units TIDWMEALS SQ Last administered on 07/10/19 19:07; Start 07/08/19 at 12:05 Promethazine HCl (Phenergan) 25 mg PRN Q6HRS PRN PO NAUSEA/VOMITING Last administered on 07/08/19 21:41; Start 07/08/19 at 12:15 Sodium Chloride 1,000 ml @ 100 mls/hr Q10H IV Last administered on 07/11/19 02:37; Start 07/08/19 at 12:15 Heparin Sodium (Porcine) (Heparin Sodium) 5,000 unit Q8HRS SQ Last administered on 07/11/19 05:13; Start 07/08/19 at 14:00 Ceftriaxone Sodium (Rocephin) 1 gm Q24H IVP Last administered on 07/10/19 12:40; Start 07/08/19 at 12:30 Sodium Chloride (Normal Saline Flush) 3 ml QSHIFT PRN IV AFTER MEDS AND BLOOD DRAWS; Start 07/08/19 at 13:00 Acetaminophen (Tylenol) 650 mg PRN Q4HRS PRN PO TEMP OVER 100.4F OR MILD PAIN Last administered on 07/10/19 06:13; Start 07/08/19 at 13:00 Clonidine HCl (Catapres) 0.1 mg PRN Q6HRS PRN PO SBP>160 OR DBP>90 Last administered on 07/11/19 02:48; Start 07/08/19 at 13:00 Docusate Sodium (Colace) 100 mg PRN BID PRN PO HARD STOOLS; Start 07/08/19 at 13:00 Albuterol Sulfate (Ventolin Neb Soln) 2.5 mg PRN Q4HRS PRN NEB SHORTNESS OF BREATH; Start 07/08/19 at 13:00 Lorazepam (Ativan) 0.5 mg PRN Q4HRS PRN PO ANXIETY / AGITATION Last administered on 07/10/19at 21:04; Start 07/08/19 at 13:00 Lactobacillus Rhamnosus (Culturelle) 1 cap BID PO Last administered on 07/11/19 08:41; Start 07/08/19 at 21:00 Tramadol HCl (Ultram) 50 mg PRN Q6HRS PRN PO PAIN Last administered on 07/11/19 05:23; Start 07/08/19 at 18:15 Glucose (Insta-Glucose) 15 gm STK-MED ONCE .ROUTE ; Start 07/08/19 at 21:23; Stop 07/08/19 at 21:23; Status DC Glucose (Insta-Glucose) 15 gm PRN Q15MIN PRN PO LOW BLOOD SUGAR Last administered on 07/08/19at 21:30; Start 07/08/19 at 21:30 Lubiprostone (Amitiza) 24 mcg BIDWMEALS PO Last administered on 07/11/19at 08:42; Start 07/09/19 at 17:00 Amlodipine Besylate (Norvasc) 10 mg DAILY PO Last administered on 07/11/19at 08:42; Start 07/09/19 at 14:17 Clonidine HCl (Catapres) 0.1 mg Q8HRS PO Last administered on 07/10/19 06:13; Start 07/09/19 at 16:30; Stop 07/10/19 at 10:47; Status DC Diphenhydramine HCl (Benadryl) 25 mg PRN QHS PRN PO INSOMNIA Last administered on 07/10/19at 21:04; Start 07/10/19 at 04:00 Diphenhydramine HCl (Benadryl) 25 mg 1X PRN PRN PO INSOMNIA; Start 07/10/19 at 04:00 Cyclobenzaprine HCl (Flexeril) 10 mg PRN Q6HRS PRN PO MUSCLE SPASMS Last administered on 07/10/19at 11:13; Start 07/10/19 at 04:00 Bisacodyl (Dulcolax Tab) 10 mg 1X ONCE PO ; Start 07/10/19 at 10:30; Stop 07/10/19 at 10:31; Status DC Clonidine HCl (Catapres) 0.2 mg Q8HRS PO Last administered on 07/11/19at 05:05; Start 07/10/19 at 11:00 Clonidine HCl (Catapres) 0.2 mg Q8HRS PO ; Start 07/10/19 at 14:00; Status UNV Hydralazine HCl (Apresoline) 75 mg TID PO Last administered on 07/11/19at 08:41; Start 07/10/19 at 11:00 Diphenhydramine HCl (Benadryl) 25 mg PRN QHS PRN PO INSOMNIA; Start 07/10/19 at 11:00 Active Scripts Active Reported Amlodipine Besylate 10 Mg Tablet 10 Mg PO DAILY Hydralazine Hcl 50 Mg Tablet 1 Tab PO TID Carvedilol 25 Mg Tablet 25 Mg PO BIDWMEALS Promethazine Hcl 25 Mg Tablet 1 Tab PO PRN Q6HRS Miralax (Polyethylene Glycol 3350) 17 Gm Powd.pack 1 Packet PO BID Lantus (Insulin Glargine,Hum.rec.anlog) 100 Unit/1 Ml Vial 25 Unit SQ QHS Novolog (Insulin Aspart) 100 Unit/1 Ml Cartridge 4 Unit SQ TID Lexapro (Escitalopram Oxalate) 20 Mg Tablet 1 Tab PO DAILY Tramadol Hcl 50 Mg Tablet 1 Tab PO PRN Q6HRS Pantoprazole Sodium (Pantoprazole Sodium) 40 Mg Tablet. 1 Tab PO DAILY Dicyclomine Hcl 10 Mg Capsule 1 Cap PO TID Vitals/I & O Vital Sign - Last 24 Hours 07/10/19 07/10/19 07/10/19 07/10/19 11:00 11:01 11:13 12:41 Temp 97.5 97.5 Pulse 72 72 Resp 18 B/P (MAP) 111/75 111/75 (87) Pulse Ox 99 O2 Delivery Room Air Room Air Room Air 07/10/19 07/10/19 07/10/19 07/10/19 12:41 13:22 15:16 15:17 Pulse 86 86 B/P (MAP) 120/86 120/86 O2 Delivery Room Air Room Air 07/10/19 07/10/19 07/10/19 07/10/19 15:17 16:37 16:37 16:45 Temp 97.3 97.6 97.3 97.6 Pulse 74 86 77 Resp 20 18 B/P (MAP) 124/80 (95) 120/86 114/75 (88) Pulse Ox 98 97 O2 Delivery Room Air Room Air Room Air 07/10/19 07/10/19 07/10/19 07/10/19 17:07 19:00 19:12 20:00 Temp 97.6 97.6 Pulse 67 Resp 15 16 B/P (MAP) 145/87 (106) Pulse Ox 97 96 97 O2 Delivery Room Air Room Air Room Air Room Air 07/10/19 07/10/19 07/10/19 07/10/19 20:30 21:04 21:05 21:45 Pulse 67 Resp 16 16 16 B/P (MAP) 145/87 Pulse Ox 97 O2 Delivery Room Air Room Air Room Air 07/10/19 07/10/19 07/11/19 07/11/19 22:00 22:43 02:34 02:47 Temp 98.9 97.9 98.9 97.9 Pulse 69 69 73 Resp 16 16 15 B/P (MAP) 106/72 106/72 (83) 175/97 (123) Pulse Ox 96 96 95 O2 Delivery Room Air Room Air Room Air 07/11/19 07/11/19 07/11/19 07/11/19 02:48 03:30 05:05 05:23 Pulse 73 69 Resp 16 14 B/P (MAP) 175/97 169/94 O2 Delivery Room Air 07/11/19 07/11/19 07/11/19 07/11/19 06:27 07:00 08:41 08:42 Temp 97.8 97.8 Pulse 69 69 69 Resp 14 17 B/P (MAP) 168/97 (120) 168/97 168/97 Pulse Ox 96 O2 Delivery Room Air 07/11/19 07/11/19 08:43 08:52 Pulse 69 Resp 18 B/P (MAP) 168/97 Pulse Ox 96 O2 Delivery Room Air Intake and Output 07/10/19 07/10/19 07/11/19 15:00 23:00 07:00 Intake Total 520 ml 1000 ml Balance 520 ml 1000 ml LYLY RAYMOND MD Jul 11, 2019 09:29
[2019-07-11 11:00] VITALS: BP 162/92
--- NOTE | 2019-07-11 11:32 | PDOC ---
Subjective: Subjective: Left flank pain worse w/ movement, tolerating PO, no vomiting, hasn't stooled, wants to go home. Objective: Objective: D/w nurse - eats 25-50% of meals, wants pain meds 'round the clock. Other notes mention n/v and diarrhea - not observed by staff. Vital Signs: Vital Signs Date Time Temp Pulse Resp B/P (MAP) Pulse Ox O2 Delivery O2 Flow Rate FiO2 07/11/19 11:00 97.7 70 17 162/92 (115) 97 Room Air 97.7 Labs: Laboratory Tests Test 07/10/19 16:10 07/10/19 16:36 07/10/19 20:31 07/11/19 03:50 Urine Random Creatinine 43.1 mg/dL Urine Random Total Protein 139.8 mg/dL Urine Protein/Creatinine Ratio 3244 mg/g Glucose (Fingerstick) 169 mg/dL 157 mg/dL Sodium Level 139 mmol/L Potassium Level 4.5 mmol/L Chloride Level 107 mmol/L Carbon Dioxide Level 22 mmol/L Anion Gap 10 Blood Urea Nitrogen 20 mg/dL Creatinine 3.3 mg/dL Estimated GFR (Cockcroft-Gault) 19.7 Glucose Level 77 mg/dL Calcium Level 8.2 mg/dL Lipase 264 U/L Test 07/11/19 07:14 Glucose (Fingerstick) 77 mg/dL BLOOD CULTURE Preliminary NO GROWTH AFTER 2 DAYS Imaging: Echo 07/09 <Conclusion> The left ventricular systolic function is normal and the ejection fraction is within normal range. The Ejection Fraction is 55-60%. There is normal LV segmental wall motion. There is moderate to severe concentric left ventricular hypertrophy. Doppler and Color Flow revealed mild tricuspid regurgitation with an estimated PAP of 29 mmHg. PE: GEN: NAD LUNGS: CTAB HEART: RRR ABD: left flank tenderness wrapping around under left ribs to lateral LUQ NEURO/PSYCH: A & O 3 - drowsy from meds A/P: Left flank pain - left adrenal nodule and urinary bladder wall thickening on CT, urine cx neg. Gastroparesis, +cannabinoids - tolerating ADA/gastroparesis diet, on PPI Constipation - on Linzess at home; here getting Miralax, Amitiza, Dulcolax HTN, CKD, DM, ACD -- Offered Relistor (renal dosing) - she declines because she "doesn't want a shot" (though takes insulin). ?pain management opinion DC per primary. JANICE JACOBO Jul 11, 2019 11:32
--- NOTE | 2019-07-11 11:34 | PDOC ---
Renal-Progress Notes Subjective Notes Notes NO NEW COMPLAINTS History of Present Illness Hx of present illness STABLE Vitals Vitals Vital Signs Date Time Temp Pulse Resp B/P (MAP) Pulse Ox O2 Delivery O2 Flow Rate FiO2 07/11/19 11:00 97.7 70 17 162/92 (115) 97 Room Air 97.7 Weight Weight [ ] I.O. Intake and Output Intake and Output 07/11/19 07:00 Intake Total 1520 ml Balance 1520 ml Intake Oral 1520 ml # Voids 3 Labs Labs Laboratory Tests Test 07/10/19 16:10 07/10/19 16:36 07/10/19 20:31 07/11/19 03:50 Urine Random Creatinine 43.1 mg/dL (Not Establ.) Urine Random Total Protein 139.8 mg/dL (Not Establ.) Urine Protein/Creatinine Ratio 3244 mg/g (0-200) Glucose (Fingerstick) 169 mg/dL (70-99) 157 mg/dL (70-99) Sodium Level 139 mmol/L (136-145) Potassium Level 4.5 mmol/L (3.5-5.1) Chloride Level 107 mmol/L (98-107) Carbon Dioxide Level 22 mmol/L (21-32) Anion Gap 10 (6-14) Blood Urea Nitrogen 20 mg/dL (7-20) Creatinine 3.3 mg/dL (0.6-1.0) Estimated GFR (Cockcroft-Gault) 19.7 Glucose Level 77 mg/dL (70-99) Calcium Level 8.2 mg/dL (8.5-10.1) Lipase 264 U/L (73-393) Test 07/11/19 07:14 07/11/19 11:27 Glucose (Fingerstick) 77 mg/dL (70-99) 120 mg/dL (70-99) Micro Micro Microbiology 07/08/19 Blood Culture - Preliminary, Resulted NO GROWTH AFTER 2 DAYS 07/07/19 Urine Culture - Final, Complete 07/07/19 Urine Culture Result 1 (TASHI) - Final, Complete Physical Exam General Appearance: no apparent distress Skin: warm Respiratory: bilateral CTA Heart: S1S2 Abdomen: soft, bowel sounds present Genitourinary: bladder flat Extremities: pulses present Neurology: alert Assessment Assessment IMP CKD STAGE 4 WITH MANAGEMENT AIDE F 3.3-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 AVOID NEPHROTOXINS CONT WITH HYDRATION INCREASE CLONIDINE AGAIN WILL FOLLOW ANNA ROSE MD Jul 11, 2019 11:34
--- NOTE | 2019-07-11 12:34 | PDOC ---
PROGRESS NOTES Chief Complaint Chief Complaint No nephrolithiasis or hydronephrosis. Left adrenal gland nodule increase in size from previous exam from 2012 likely adenoma. Normal appendix. RENAL FAILURE// we NEED BASELINE LABS FROM NEPHROLOGY OFFICE Proteinuria Hypertension, accelerated likely hypertensive/ DIABETIC nephrosclerosis Intractable vomiting, better Diarrhea thc abuse Cystitis HX STAGE 4 KIDNEY DISEASE cr down to 3.2 DIABETES TYPE 1 hx gastroparesis acute volume depletion drop in hgb may be due to hydration left flank pain PLAN ADMIT Nephrology consult stool culture iv fluid support GI following dvt prophylaxis, heparin IV ROCEPHIN URINE CULTURE accuchecks Nonemergent MRI of the abdomen recommended. A1C art specialist consult pelvic sono serum cortisol 37 MIN pt exam, chart review, > 50% of time spent with exam, chart review, pt c are coordination History of Present Illness History of Present Illness N/V/D over the course of two days. The pts h/o is significant for type I DM, HTN and ESRD. Since being admitted on 07/08/19 she feels like her N/V has improved but she still has persistent pain. The pain begins in her left flank but does have a component that is located in her LLQ. The pt underwent a CT on 07/07. The eval of the abd and pelvis was somewhat limited b/c they were unable to use IV contrast. They were able to identify that the left adrenal gland nodule had increase in size from previous exam from 2012 (thought to be an adenoma). They also reported that the bladder had some thickening consistent with a subacute distention or cystitis. GI and nephrology were consulted. She reported a gastroparesis along with her DM. It was thought that the N/V may have been related to the gastroparesis. At the same time, it was thought that some of the symptoms could also be related to a superimposed enteritis or peptic disease could also be playing a role. The pt was initially started on Rocephin for a possible UTI. Her UCxs have NGTD. She initially had a slight left shift but since admission at has returned to nml. Her WBC has remained nml throughout her hospitalization. As noted above her imaging of her bladder was thought that it may be secondary to a cystitis. With the persistent pelvic/flank pain an u/s was ordered. Over the course of her hospitalization her BP and FSBS have been labial. Her Cr on admission was 4.1 but since has returned to her reported baseline of 2.5-3.2. Left flank pain worse w/ movement, tolerating PO, no vomiting, hasn't stooled, wants to have PICC line due to 6th IV infiltration, tells me fentanyl and tra madol don't work for her pain. I have advised her IV pain medications don't work when the IV is infiltrated. Eating 25-50% of meals, only asking for pain meds and a heating pack. Plan: PICC for blood draws, need for IV meds Hopefully home in next 24 hours. Vitals Vitals Vital Signs Date Time Temp Pulse Resp B/P (MAP) Pulse Ox O2 Delivery O2 Flow Rate FiO2 07/11/19 11:00 97.7 70 17 162/92 (115) 97 Room Air 97.7 Physical Exam General: Alert, Oriented X3, No acute distress Heart: Regular rate Abdomen: Other (tender in LLQ, no rebound or guarding) Extremities: No clubbing, No cyanosis Skin: No rashes Labs LABS Laboratory Tests Test 07/10/19 16:10 07/10/19 16:36 07/10/19 20:31 07/11/19 03:50 Urine Random Creatinine 43.1 mg/dL (Not Establ.) Urine Random Total Protein 139.8 mg/dL (Not Establ.) Urine Protein/Creatinine Ratio 3244 mg/g (0-200) Glucose (Fingerstick) 169 mg/dL (70-99) 157 mg/dL (70-99) Sodium Level 139 mmol/L (136-145) Potassium Level 4.5 mmol/L (3.5-5.1) Chloride Level 107 mmol/L (98-107) Carbon Dioxide Level 22 mmol/L (21-32) Anion Gap 10 (6-14) Blood Urea Nitrogen 20 mg/dL (7-20) Creatinine 3.3 mg/dL (0.6-1.0) Estimated GFR (Cockcroft-Gault) 19.7 Glucose Level 77 mg/dL (70-99) Calcium Level 8.2 mg/dL (8.5-10.1) Lipase 264 U/L (73-393) Test 07/11/19 07:14 07/11/19 11:27 Glucose (Fingerstick) 77 mg/dL (70-99) 120 mg/dL (70-99) Assessment and Plan Assessmemt and Plan Problems Medical Problems: (1) End stage renal disease Status: Acute (2) Vomiting Status: Acute Comment Review of Relevant I have reviewed the following items mine (where applicable) has been applied. Labs Laboratory Tests Test 07/09/19 17:13 07/09/19 23:34 07/10/19 06:05 07/10/19 07:45 Glucose (Fingerstick) 218 mg/dL (70-99) 116 mg/dL (70-99) 178 mg/dL (70-99) White Blood Count 6.7 x10^3/uL (4.0-11.0) Red Blood Count 2.91 x10^6/uL (3.50-5.40) Hemoglobin 8.5 g/dL (12.0-15.5) Hematocrit 25.1 % (36.0-47.0) Mean Corpuscular Volume 86 fL (79-100) Mean Corpuscular Hemoglobin 29 pg (25-35) Mean Corpuscular Hemoglobin Concent 34 g/dL (31-37) Red Cell Distribution Width 14.7 % (11.5-14.5) Platelet Count 262 x10^3/uL (140-400) Sodium Level 136 mmol/L (136-145) Potassium Level 4.5 mmol/L (3.5-5.1) Chloride Level 105 mmol/L (98-107) Carbon Dioxide Level 22 mmol/L (21-32) Anion Gap 9 (6-14) Blood Urea Nitrogen 19 mg/dL (7-20) Creatinine 3.3 mg/dL (0.6-1.0) Estimated GFR (Cockcroft-Gault) 19.7 Glucose Level 187 mg/dL (70-99) Calcium Level 7.9 mg/dL (8.5-10.1) Test 07/10/19 10:30 07/10/19 16:10 07/10/19 16:36 07/10/19 20:31 Glucose (Fingerstick) 130 mg/dL (70-99) 169 mg/dL (70-99) 157 mg/dL (70-99) Urine Random Creatinine 43.1 mg/dL (Not Establ.) Urine Random Total Protein 139.8 mg/dL (Not Establ.) Urine Protein/Creatinine Ratio 3244 mg/g (0-200) Test 07/11/19 03:50 07/11/19 07:14 07/11/19 11:27 Sodium Level 139 mmol/L (136-145) Potassium Level 4.5 mmol/L (3.5-5.1) Chloride Level 107 mmol/L (98-107) Carbon Dioxide Level 22 mmol/L (21-32) Anion Gap 10 (6-14) Blood Urea Nitrogen 20 mg/dL (7-20) Creatinine 3.3 mg/dL (0.6-1.0) Estimated GFR (Cockcroft-Gault) 19.7 Glucose Level 77 mg/dL (70-99) Calcium Level 8.2 mg/dL (8.5-10.1) Lipase 264 U/L (73-393) Glucose (Fingerstick) 77 mg/dL (70-99) 120 mg/dL (70-99) Laboratory Tests Test 07/10/19 16:10 07/10/19 16:36 07/10/19 20:31 07/11/19 03:50 Urine Random Creatinine 43.1 mg/dL (Not Establ.) Urine Random Total Protein 139.8 mg/dL (Not Establ.) Urine Protein/Creatinine Ratio 3244 mg/g (0-200) Glucose (Fingerstick) 169 mg/dL (70-99) 157 mg/dL (70-99) Sodium Level 139 mmol/L (136-145) Potassium Level 4.5 mmol/L (3.5-5.1) Chloride Level 107 mmol/L (98-107) Carbon Dioxide Level 22 mmol/L (21-32) Anion Gap 10 (6-14) Blood Urea Nitrogen 20 mg/dL (7-20) Creatinine 3.3 mg/dL (0.6-1.0) Estimated GFR (Cockcroft-Gault) 19.7 Glucose Level 77 mg/dL (70-99) Calcium Level 8.2 mg/dL (8.5-10.1) Lipase 264 U/L (73-393) Test 07/11/19 07:14 07/11/19 11:27 Glucose (Fingerstick) 77 mg/dL (70-99) 120 mg/dL (70-99) Microbiology 07/08/19 Blood Culture - Preliminary, Resulted NO GROWTH AFTER 2 DAYS 07/07/19 Urine Culture - Final, Complete 07/07/19 Urine Culture Result 1 (TASHI) - Final, Complete Medications Current Medications Sodium Chloride 1,000 ml @ 1,000 mls/hr 1X ONCE IV Last administered on 07/07/19 18:47; Start 07/07/19 at 19:00; Stop 07/07/19 at 19:59; Status DC Prochlorperazine Edisylate (Compazine) 10 mg 1X ONCE IV Last administered on 07/07/19 18:50; Start 07/07/19 at 19:00; Stop 07/07/19 at 19:01; Status DC Fentanyl Citrate (Fentanyl 2ml Vial) 50 mcg 1X ONCE IV Last administered on 07/07/19 18:48; Start 07/07/19 at 19:00; Stop 07/07/19 at 19:01; Status DC Lorazepam (Ativan Inj) 1 mg 1X ONCE IV Last administered on 07/07/19 18:50; Start 07/07/19 at 19:00; Stop 07/07/19 at 19:01; Status DC Pantoprazole Sodium (PROTONIX VIAL for IV PUSH) 40 mg 1X ONCE IVP Last administered on 07/07/19 20:10; Start 07/07/19 at 20:30; Stop 07/07/19 at 20:31; Status DC Sodium Chloride 1,000 ml @ 1,000 mls/hr 1X ONCE IV Last administered on 07/07/19at 20:11; Start 07/07/19 at 21:00; Stop 07/07/19 at 21:59; Status DC Hydralazine HCl (Apresoline Inj) 10 mg 1X ONCE IVP Last administered on 07/07/19at 20:40; Start 07/07/19 at 20:30; Stop 07/07/19 at 20:31; Status DC Ondansetron HCl (Zofran) 4 mg PRN Q8HRS PRN IV NAUSEA/VOMITING 1ST CHOICE; Start 07/07/19 at 22:15; Stop 07/08/19 at 22:14; Status Cancel Fentanyl Citrate (Fentanyl 2ml Vial) 50 mcg PRN Q4HRS PRN IVP SEVERE PAIN 7-10 Last administered on 07/11/19at 08:52; Start 07/07/19 at 22:45 Prochlorperazine Edisylate (Compazine) 10 mg PRN Q6HRS PRN IV NAUSEA/VOMITING 1ST CHOICE Last administered on 07/08/19 08:25; Start 07/08/19 at 03:30 Insulin Human Lispro (HumaLOG) 0-5 UNITS TIDWMEALS SQ Last administered on 07/10/19 09:01; Start 07/08/19 at 08:00 Dextrose (Dextrose 50%-Water Syringe) 12.5 gm PRN Q15MIN PRN IV SEE COMMENTS; Start 07/08/19 at 04:00 Hydralazine HCl (Apresoline) 50 mg TID PO Last administered on 07/10/19 07:53; Start 07/08/19 at 09:00; Stop 07/10/19 at 10:50; Status DC Carvedilol (Coreg) 25 mg BIDWMEALS PO Last administered on 07/11/19 08:43; Start 07/08/19 at 09:00 Insulin Glargine (Lantus Syringe) 25 unit QHS SQ Last administered on 07/10/19 21:09; Start 07/08/19 at 21:00 Pantoprazole Sodium (Protonix) 40 mg DAILY PO Last administered on 07/11/19 08:42; Start 07/08/19 at 13:00 Polyethylene Glycol (miraLAX PACKET) 17 gm BID PO Last administered on 07/11/19 08:42; Start 07/08/19 at 21:00 Citalopram Hydrobromide (CeleXA) 40 mg DAILY PO Last administered on 07/11/19 08:44; Start 07/08/19 at 13:00 Insulin Human Lispro (HumaLOG) 4 units TIDWMEALS SQ Last administered on 07/10/19 19:07; Start 07/08/19 at 12:05 Promethazine HCl (Phenergan) 25 mg PRN Q6HRS PRN PO NAUSEA/VOMITING Last administered on 07/08/19 21:41; Start 07/08/19 at 12:15 Sodium Chloride 1,000 ml @ 100 mls/hr Q10H IV Last administered on 07/11/19 02:37; Start 07/08/19 at 12:15 Heparin Sodium (Porcine) (Heparin Sodium) 5,000 unit Q8HRS SQ Last administered on 07/11/19at 05:13; Start 07/08/19 at 14:00 Ceftriaxone Sodium (Rocephin) 1 gm Q24H IVP Last administered on 07/10/19at 12:40; Start 07/08/19 at 12:30 Sodium Chloride (Normal Saline Flush) 3 ml QSHIFT PRN IV AFTER MEDS AND BLOOD DRAWS; Start 07/08/19 at 13:00 Acetaminophen (Tylenol) 650 mg PRN Q4HRS PRN PO TEMP OVER 100.4F OR MILD PAIN Last administered on 07/10/19at 06:13; Start 07/08/19 at 13:00 Clonidine HCl (Catapres) 0.1 mg PRN Q6HRS PRN PO SBP>160 OR DBP>90 Last administered on 07/11/19at 02:48; Start 07/08/19 at 13:00 Docusate Sodium (Colace) 100 mg PRN BID PRN PO HARD STOOLS; Start 07/08/19 at 13:00 Albuterol Sulfate (Ventolin Neb Soln) 2.5 mg PRN Q4HRS PRN NEB SHORTNESS OF BREATH; Start 07/08/19 at 13:00 Lorazepam (Ativan) 0.5 mg PRN Q4HRS PRN PO ANXIETY / AGITATION Last administered on 07/10/19at 21:04; Start 07/08/19 at 13:00 Lactobacillus Rhamnosus (Culturelle) 1 cap BID PO Last administered on 07/11/19at 08:41; Start 07/08/19 at 21:00 Tramadol HCl (Ultram) 50 mg PRN Q6HRS PRN PO PAIN Last administered on 07/11at 05:23; Start 07/08/19 at 18:15 Glucose (Insta-Glucose) 15 gm STK-MED ONCE .ROUTE ; Start 07/08/19 at 21:23; Stop 07/08/19 at 21:23; Status DC Glucose (Insta-Glucose) 15 gm PRN Q15MIN PRN PO LOW BLOOD SUGAR Last administered on 07/08/19at 21:30; Start 07/08/19 at 21:30 Lubiprostone (Amitiza) 24 mcg BIDWMEALS PO Last administered on 07/11/19at 08:42; Start 07/09/19 at 17:00 Amlodipine Besylate (Norvasc) 10 mg DAILY PO Last administered on 07/11/19at 08:42; Start 07/09/19 at 14:17 Clonidine HCl (Catapres) 0.1 mg Q8HRS PO Last administered on 07/10/19at 06:13; Start 07/09/19 at 16:30; Stop 07/10/19 at 10:47; Status DC Diphenhydramine HCl (Benadryl) 25 mg PRN QHS PRN PO INSOMNIA Last administered on 07/10/19at 21:04; Start 07/10/19 at 04:00 Diphenhydramine HCl (Benadryl) 25 mg 1X PRN PRN PO INSOMNIA; Start 07/10/19 at 04:00 Cyclobenzaprine HCl (Flexeril) 10 mg PRN Q6HRS PRN PO MUSCLE SPASMS Last administered on 07/10/19at 11:13; Start 07/10/19 at 04:00 Bisacodyl (Dulcolax Tab) 10 mg 1X ONCE PO ; Start 07/10/19 at 10:30; Stop 07/10/19 at 10:31; Status DC Clonidine HCl (Catapres) 0.2 mg Q8HRS PO Last administered on 07/11/19at 05:05; Start 07/10/19 at 11:00; Stop 07/11/19 at 11:35; Status DC Clonidine HCl (Catapres) 0.2 mg Q8HRS PO ; Start 07/10/19 at 14:00; Status UNV Hydralazine HCl (Apresoline) 75 mg TID PO Last administered on 07/11/19at 08:41; Start 07/10/19 at 11:00 Diphenhydramine HCl (Benadryl) 25 mg PRN QHS PRN PO INSOMNIA; Start 07/10/19 at 11:00; Stop 07/11/19 at 11:10; Status DC Clonidine HCl (Catapres) 0.3 mg Q8HRS PO ; Start 07/11/19 at 14:00 Active Scripts Active Reported Amlodipine Besylate 10 Mg Tablet 10 Mg PO DAILY Hydralazine Hcl 50 Mg Tablet 1 Tab PO TID Carvedilol 25 Mg Tablet 25 Mg PO BIDWMEALS Promethazine Hcl 25 Mg Tablet 1 Tab PO PRN Q6HRS Miralax (Polyethylene Glycol 3350) 17 Gm Powd.pack 1 Packet PO BID Lantus (Insulin Glargine,Hum.rec.anlog) 100 Unit/1 Ml Vial 25 Unit SQ QHS Novolog (Insulin Aspart) 100 Unit/1 Ml Cartridge 4 Unit SQ TID Lexapro (Escitalopram Oxalate) 20 Mg Tablet 1 Tab PO DAILY Tramadol Hcl 50 Mg Tablet 1 Tab PO PRN Q6HRS Pantoprazole Sodium (Pantoprazole Sodium) 40 Mg Tablet.dr 1 Tab PO DAILY Dicyclomine Hcl 10 Mg Capsule 1 Cap PO TID Vitals/I & O Vital Sign - Last 24 Hours 07/10/19 07/10/19 07/10/19 07/10/19 12:41 12:41 13:22 15:16 Pulse 86 B/P (MAP) 120/86 O2 Delivery Room Air Room Air Room Air 07/10/19 07/10/19 07/10/19 07/10/19 15:17 15:17 16:37 16:37 Temp 97.3 97.3 Pulse 86 74 86 Resp 20 B/P (MAP) 120/86 124/80 (95) 120/86 Pulse Ox 98 O2 Delivery Room Air Room Air 07/10/19 07/10/19 07/10/19 07/10/19 16:45 17:07 19:00 19:12 Temp 97.6 97.6 97.6 97.6 Pulse 77 67 Resp 18 15 16 B/P (MAP) 114/75 (88) 145/87 (106) Pulse Ox 97 97 96 97 O2 Delivery Room Air Room Air Room Air Room Air 07/10/19 07/10/19 07/10/19 07/10/19 20:00 20:30 21:04 21:05 Pulse 67 Resp 16 16 B/P (MAP) 145/87 Pulse Ox 97 O2 Delivery Room Air Room Air Room Air 07/10/19 07/10/19 07/10/19 07/11/19 21:45 22:00 22:43 02:34 Temp 98.9 98.9 Pulse 69 69 Resp 16 16 16 B/P (MAP) 106/72 106/72 (83) Pulse Ox 96 96 O2 Delivery Room Air Room Air Room Air 07/11/19 07/11/19 07/11/19 07/11/19 02:47 02:48 03:30 05:05 Temp 97.9 97.9 Pulse 73 73 69 Resp 15 16 B/P (MAP) 175/97 (123) 175/97 169/94 Pulse Ox 95 O2 Delivery Room Air Room Air 07/11/19 07/11/19 07/11/19 07/11/19 05:23 06:27 07:00 08:41 Temp 97.8 97.8 Pulse 69 69 Resp 14 14 17 B/P (MAP) 168/97 (120) 168/97 Pulse Ox 96 O2 Delivery Room Air 07/11/19 07/11/19 07/11/19 07/11/19 08:42 08:43 08:52 09:22 Pulse 69 69 Resp 18 B/P (MAP) 168/97 168/97 Pulse Ox 96 96 O2 Delivery Room Air Room Air 07/11/19 11:00 Temp 97.7 97.7 Pulse 70 Resp 17 B/P (MAP) 162/92 (115) Pulse Ox 97 O2 Delivery Room Air Intake and Output 07/10/19 07/10/19 07/11/19 15:00 23:00 07:00 Intake Total 520 ml 1000 ml Balance 520 ml 1000 ml MARIAH CAMPBELL MD Jul 11, 2019 12:34
[2019-07-11] MEDS: cloNIDine HCL 0.3 MG TABLET PO SCH ×2 (14:20→21:22)
[2019-07-11 15:00] VITALS: BP 159/84
[2019-07-11] MEDS: cefTRIAXone IV Push 1 GM VIAL. IVP SCH (15:49)
[2019-07-11] MEDS ORDERED: CYANOCOBALAMIN (VITAMIN B-12) 1,000 MCG/ML VIAL IM ONE (16:45)
[2019-07-11 18:59] VITALS: BP 121/76
[2019-07-11] MEDS ORDERED: CEFDINIR 300 MG CAPSULE PO SCH (21:00)
[2019-07-11] MEDS: LORazepam 0.5 MG TABLET PO PRN (21:20)
[2019-07-11] MEDS: diphenhydrAMINE HCL 25 MG CAPSULE PO PRN (21:21)
[2019-07-11] MEDS: INSULIN GLARGINE SYRINGE. SQ SCH (21:23)
[2019-07-11 23:00] VITALS: BP 150/85
[2019-07-12] MEDS: fentaNYL PF VIAL 100 MCG/2 ML VIAL IVP PRN ×3 (02:35→13:52)
[2019-07-12 03:00] VITALS: BP 145/88
[2019-07-12 05:03] LABS: CALCIUM 8.3 mg/dL (8.5-10.1); CREATININE 3.2 mg/dL (0.6-1.0); GFR 20.4; POTASSIUM 4.6 mmol/L (3.5-5.1)
[2019-07-12] MEDS: cloNIDine HCL 0.3 MG TABLET PO SCH ×2 (05:46→14:00)
[2019-07-12] MEDS: traMADol 50 MG TABLET PO PRN (05:46)
[2019-07-12] MEDS: HEPARIN for SUB-Q USE 5,000 UNIT/ML VIAL. SQ SCH ×2 (05:50→14:00)
[2019-07-12 07:00] VITALS: BP 150/91
[2019-07-12] MEDS: INSULIN LISPRO 300 UNITS/3 ML VIAL. SQ SCH ×4 (08:00→12:33)
[2019-07-12] MEDS: LUBIPROSTONE 24 MCG CAPSULE PO SCH (08:46)
[2019-07-12] MEDS: PANTOPRAZOLE 40 MG TABLET.DR. PO SCH (08:46)
[2019-07-12] MEDS: amLODIPine BESYLATE 10 MG TABLET PO SCH (08:46)
[2019-07-12] MEDS: hydrALAZINE 25 MG TABLET PO SCH ×2 (08:47→14:52)
[2019-07-12] MEDS: CARVEDILOL 12.5 MG TABLET. PO SCH (08:47)
[2019-07-12] MEDS: POLYETHYLENE GLYCOL 3350 17 GM PACKET. PO SCH (08:47)
[2019-07-12] MEDS: CITALOPRAM 20 MG TABLET. PO SCH (08:47)
[2019-07-12] MEDS: LACTOBACILLUS RHAMNOSUS GG 1 CAPSULE. PO SCH (08:47)
--- NOTE | 2019-07-12 08:54 | PDOC ---
PROGRESS NOTES Chief Complaint Chief Complaint No nephrolithiasis or hydronephrosis. Left adrenal gland nodule increase in size from previous exam from 2012 likely adenoma. Normal appendix. RENAL FAILURE// we NEED BASELINE LABS FROM NEPHROLOGY OFFICE Proteinuria Hypertension, accelerated likely hypertensive/ DIABETIC nephrosclerosis Intractable vomiting, better Diarrhea thc abuse Cystitis HX STAGE 4 KIDNEY DISEASE cr down to 3.2 DIABETES TYPE 1 hx gastroparesis acute volume depletion drop in hgb may be due to hydration left flank pain PLAN ADMIT Nephrology consult stool culture iv fluid support GI following dvt prophylaxis, heparin IV ROCEPHIN URINE CULTURE accuchecks Nonemergent MRI of the abdomen recommended. A1C quill fixer consult pelvic sono serum cortisol 37 MIN pt exam, chart review, > 50% of time spent with exam, chart review, pt c are coordination History of Present Illness History of Present Illness Ms Lynch is a 33yo F w/ PMhx type I DM, HTN, gastroparesis, and CKD who p/w N/V/D over the course of two days prior to admit with LLQ and back pain. Since being admitted on 07/08/19 she feels like her N/V has improved but she still has persistent pain. The pain begins in her left flank but does have a component that is located in her LLQ. The pt underwent a CT on 07/07. The eval of the abd and pelvis was somewhat limited b/c they were unable to use IV contrast. They were able to identify that the left adrenal gland nodule had increase in size from previous exam from 2012 (thought to be an adenoma). They also reported that the bladder had some thickening consistent with a subacute distention or cystitis. GI and nephrology were consulted. She reported a gastroparesis along with her DM. It was thought that the N/V may have been related to the gastroparesis. At the same time, it was thought that some of the symptoms could also be related to a superimposed enteritis or peptic disease could also be playing a role. The pt was initially started on Rocephin for a possible UTI. Her UCxs have NGTD. She initially had a slight left shift but since admission at has returned to nml. Her WBC has remained nml throughout her hospitalization. As noted above her imaging of her bladder was thought that it may be secondary to a cystitis. With the persistent pelvic/flank pain an u/s was ordered. Over the course of her hospitalization her BP and FSBS have been labial. Her Cr on admission was 4.1 but since has returned to her reported baseline of 2.5-3.2. Seen by Strapping Machine Operator, nephrology, and GI. 07/11: Left flank pain worse w/ movement, tolerating PO, no vomiting, hasn't stooled, wants to have PICC line due to 6th IV infiltration, tells me fentanyl and tramadol don't work for her pain. I have advised her IV pain medications don't work when the IV is infiltrated. Eating 25-50% of meals, only asking for pain meds and a heating pack. Feeling improved after [facility] pain treatment and plan for d/c home today with plans for home health and aquatic therapy when able. Vitals Vitals Vital Signs Date Time Temp Pulse Resp B/P (MAP) Pulse Ox O2 Delivery O2 Flow Rate FiO2 07/12/19 07:00 97.4 76 16 150/91 (110) 96 Room Air 97.4 Physical Exam General: Alert, Oriented X3, No acute distress Heart: Regular rate Abdomen: Other (tender in LLQ, no rebound or guarding) Extremities: No clubbing, No cyanosis Skin: No rashes Labs LABS Laboratory Tests Test 07/11/19 11:27 07/11/19 16:59 07/11/19 20:35 07/12/19 03:55 Glucose (Fingerstick) 120 mg/dL (70-99) 89 mg/dL (70-99) 121 mg/dL (70-99) Sodium Level 138 mmol/L (136-145) Potassium Level 4.6 mmol/L (3.5-5.1) Chloride Level 109 mmol/L (98-107) Carbon Dioxide Level 19 mmol/L (21-32) Anion Gap 10 (6-14) Blood Urea Nitrogen 19 mg/dL (7-20) Creatinine 3.2 mg/dL (0.6-1.0) Estimated GFR (Cockcroft-Gault) 20.4 Glucose Level 66 mg/dL (70-99) Calcium Level 8.3 mg/dL (8.5-10.1) Test 07/12/19 05:28 07/12/19 07:17 07/12/19 07:41 Glucose (Fingerstick) 85 mg/dL (70-99) 38 mg/dL (70-99) 205 mg/dL (70-99) Assessment and Plan Assessmemt and Plan Problems Medical Problems: (1) End stage renal disease Status: Acute (2) Vomiting Status: Acute Comment Review of Relevant I have reviewed the following items mine (where applicable) has been applied. Labs Laboratory Tests Test 07/10/19 10:30 07/10/19 16:10 07/10/19 16:36 07/10/19 20:31 Glucose (Fingerstick) 130 mg/dL (70-99) 169 mg/dL (70-99) 157 mg/dL (70-99) Urine Random Creatinine 43.1 mg/dL (Not Establ.) Urine Random Total Protein 139.8 mg/dL (Not Establ.) Urine Protein/Creatinine Ratio 3244 mg/g (0-200) Test 07/11/19 03:50 07/11/19 07:14 07/11/19 11:27 07/11/19 16:59 Sodium Level 139 mmol/L (136-145) Potassium Level 4.5 mmol/L (3.5-5.1) Chloride Level 107 mmol/L (98-107) Carbon Dioxide Level 22 mmol/L (21-32) Anion Gap 10 (6-14) Blood Urea Nitrogen 20 mg/dL (7-20) Creatinine 3.3 mg/dL (0.6-1.0) Estimated GFR (Cockcroft-Gault) 19.7 Glucose Level 77 mg/dL (70-99) Calcium Level 8.2 mg/dL (8.5-10.1) Lipase 264 U/L (73-393) Glucose (Fingerstick) 77 mg/dL (70-99) 120 mg/dL (70-99) 89 mg/dL (70-99) Test 07/11/19 20:35 07/12/19 03:55 07/12/19 05:28 07/12/19 07:17 Glucose (Fingerstick) 121 mg/dL (70-99) 85 mg/dL (70-99) 38 mg/dL (70-99) Sodium Level 138 mmol/L (136-145) Potassium Level 4.6 mmol/L (3.5-5.1) Chloride Level 109 mmol/L (98-107) Carbon Dioxide Level 19 mmol/L (21-32) Anion Gap 10 (6-14) Blood Urea Nitrogen 19 mg/dL (7-20) Creatinine 3.2 mg/dL (0.6-1.0) Estimated GFR (Cockcroft-Gault) 20.4 Glucose Level 66 mg/dL (70-99) Calcium Level 8.3 mg/dL (8.5-10.1) Test 07/12/19 07:41 Glucose (Fingerstick) 205 mg/dL (70-99) Laboratory Tests Test 07/11/19 11:27 07/11/19 16:59 07/11/19 20:35 07/12/19 03:55 Glucose (Fingerstick) 120 mg/dL (70-99) 89 mg/dL (70-99) 121 mg/dL (70-99) Sodium Level 138 mmol/L (136-145) Potassium Level 4.6 mmol/L (3.5-5.1) Chloride Level 109 mmol/L (98-107) Carbon Dioxide Level 19 mmol/L (21-32) Anion Gap 10 (6-14) Blood Urea Nitrogen 19 mg/dL (7-20) Creatinine 3.2 mg/dL (0.6-1.0) Estimated GFR (Cockcroft-Gault) 20.4 Glucose Level 66 mg/dL (70-99) Calcium Level 8.3 mg/dL (8.5-10.1) Test 07/12/19 05:28 07/12/19 07:17 07/12/19 07:41 Glucose (Fingerstick) 85 mg/dL (70-99) 38 mg/dL (70-99) 205 mg/dL (70-99) Microbiology 07/08/19 Blood Culture - Preliminary, Resulted NO GROWTH AFTER 3 DAYS 07/07/19 Urine Culture - Final, Complete 07/07/19 Urine Culture Result 1 (TASHI) - Final, Complete Medications Current Medications Sodium Chloride 1,000 ml @ 1,000 mls/hr 1X ONCE IV Last administered on 07/07/19at 18:47; Start 07/07/19 at 19:00; Stop 07/07/19 at 19:59; Status DC Prochlorperazine Edisylate (Compazine) 10 mg 1X ONCE IV Last administered on 07/07/19at 18:50; Start 07/07/19 at 19:00; Stop 07/07/19 at 19:01; Status DC Fentanyl Citrate (Fentanyl 2ml Vial) 50 mcg 1X ONCE IV Last administered on 07/07/19at 18:48; Start 07/07/19 at 19:00; Stop 07/07/19 at 19:01; Status DC Lorazepam (Ativan Inj) 1 mg 1X ONCE IV Last administered on 07/07/19 18:50; Start 07/07/19 at 19:00; Stop 07/07/19 at 19:01; Status DC Pantoprazole Sodium (PROTONIX VIAL for IV PUSH) 40 mg 1X ONCE IVP Last administered on 07/07/19at 20:10; Start 07/07/19 at 20:30; Stop 07/07/19 at 20:31; Status DC Sodium Chloride 1,000 ml @ 1,000 mls/hr 1X ONCE IV Last administered on 07/07/19at 20:11; Start 07/07/19 at 21:00; Stop 07/07/19 at 21:59; Status DC Hydralazine HCl (Apresoline Inj) 10 mg 1X ONCE IVP Last administered on 07/07/19at 20:40; Start 07/07/19 at 20:30; Stop 07/07/19 at 20:31; Status DC Ondansetron HCl (Zofran) 4 mg PRN Q8HRS PRN IV NAUSEA/VOMITING 1ST CHOICE; Start 07/07/19 at 22:15; Stop 07/08/19 at 22:14; Status Cancel Fentanyl Citrate (Fentanyl 2ml Vial) 50 mcg PRN Q4HRS PRN IVP SEVERE PAIN 7-10 Last administered on 07/12/19at 02:35; Start 07/07/19 at 22:45 Prochlorperazine Edisylate (Compazine) 10 mg PRN Q6HRS PRN IV NAUSEA/VOMITING 1ST CHOICE Last administered on 07/08/19at 08:25; Start 07/08/19 at 03:30 Insulin Human Lispro (HumaLOG) 0-5 UNITS TIDWMEALS SQ Last administered on 07/10/19 09:01; Start 07/08/19 at 08:00 Dextrose (Dextrose 50%-Water Syringe) 12.5 gm PRN Q15MIN PRN IV SEE COMMENTS Last administered on 07/12/19 07:27; Start 07/08/19 at 04:00 Hydralazine HCl (Apresoline) 50 mg TID PO Last administered on 07/10/19 07:53; Start 07/08/19 at 09:00; Stop 07/10/19 at 10:50; Status DC Carvedilol (Coreg) 25 mg BIDWMEALS PO Last administered on 07/11/19 18:00; Start 07/08/19 at 09:00 Insulin Glargine (Lantus Syringe) 25 unit QHS SQ Last administered on 07/11/19 21:23; Start 07/08/19 at 21:00 Pantoprazole Sodium (Protonix) 40 mg DAILY PO Last administered on 07/11/19 08:42; Start 07/08/19 at 13:00 Polyethylene Glycol (miraLAX PACKET) 17 gm BID PO Last administered on 07/11/19 21:20; Start 07/08/19 at 21:00 Citalopram Hydrobromide (CeleXA) 40 mg DAILY PO Last administered on 07/11/19 08:44; Start 07/08/19 at 13:00 Insulin Human Lispro (HumaLOG) 4 units TIDWMEALS SQ Last administered on 07/10/19 19:07; Start 07/08/19 at 12:05 Promethazine HCl (Phenergan) 25 mg PRN Q6HRS PRN PO NAUSEA/VOMITING Last administered on 07/08/19 21:41; Start 07/08/19 at 12:15 Sodium Chloride 1,000 ml @ 100 mls/hr Q10H IV Last administered on 07/11/19 15:53; Start 07/08/19 at 12:15 Heparin Sodium (Porcine) (Heparin Sodium) 5,000 unit Q8HRS SQ Last administered on 07/12/19 05:50; Start 07/08/19 at 14:00 Ceftriaxone Sodium (Rocephin) 1 gm Q24H IVP Last administered on 07/11/19 15:49; Start 07/08/19 at 12:30; Stop 07/11/19 at 16:00; Status DC Sodium Chloride (Normal Saline Flush) 3 ml QSHIFT PRN IV AFTER MEDS AND BLOOD DRAWS; Start 07/08/19 at 13:00 Acetaminophen (Tylenol) 650 mg PRN Q4HRS PRN PO TEMP OVER 100.4F OR MILD PAIN Last administered on 07/10/19 06:13; Start 07/08/19 at 13:00 Clonidine HCl (Catapres) 0.1 mg PRN Q6HRS PRN PO SBP>160 OR DBP>90 Last administered on 07/11/19 02:48; Start 07/08/19 at 13:00 Docusate Sodium (Colace) 100 mg PRN BID PRN PO HARD STOOLS; Start 07/08/19 at 13:00 Albuterol Sulfate (Ventolin Neb Soln) 2.5 mg PRN Q4HRS PRN NEB SHORTNESS OF BREATH; Start 07/08/19 at 13:00 Lorazepam (Ativan) 0.5 mg PRN Q4HRS PRN PO ANXIETY / AGITATION Last administered on 07/11/19 21:20; Start 07/08/19 at 13:00 Lactobacillus Rhamnosus (Culturelle) 1 cap BID PO Last administered on 07/11/19 21:20; Start 07/08/19 at 21:00 Tramadol HCl (Ultram) 50 mg PRN Q6HRS PRN PO PAIN Last administered on 07/12/19 05:46; Start 07/08/19 at 18:15 Glucose (Insta-Glucose) 15 gm STK-MED ONCE .ROUTE ; Start 07/08/19 at 21:23; Stop 07/08/19 at 21:23; Status DC Glucose (Insta-Glucose) 15 gm PRN Q15MIN PRN PO LOW BLOOD SUGAR Last administered on 07/08/19at 21:30; Start 07/08/19 at 21:30 Lubiprostone (Amitiza) 24 mcg BIDWMEALS PO Last administered on 07/11/19 18:00; Start 07/09/19 at 17:00 Amlodipine Besylate (Norvasc) 10 mg DAILY PO Last administered on 07/11/19 08:42; Start 07/09/19 at 14:17 Clonidine HCl (Catapres) 0.1 mg Q8HRS PO Last administered on 07/10/19 06:13; Start 07/09/19 at 16:30; Stop 07/10/19 at 10:47; Status DC Diphenhydramine HCl (Benadryl) 25 mg PRN QHS PRN PO INSOMNIA Last administered on 07/11/19 21:21; Start 07/10/19 at 04:00 Diphenhydramine HCl (Benadryl) 25 mg 1X PRN PRN PO INSOMNIA; Start 07/10/19 at 04:00 Cyclobenzaprine HCl (Flexeril) 10 mg PRN Q6HRS PRN PO MUSCLE SPASMS Last administered on 07/10/19at 11:13; Start 07/10/19 at 04:00 Bisacodyl (Dulcolax Tab) 10 mg 1X ONCE PO ; Start 07/10/19 at 10:30; Stop 07/10/19 at 10:31; Status DC Clonidine HCl (Catapres) 0.2 mg Q8HRS PO Last administered on 07/11/19at 05:05; Start 07/10/19 at 11:00; Stop 07/11/19 at 11:35; Status DC Clonidine HCl (Catapres) 0.2 mg Q8HRS PO ; Start 07/10/19 at 14:00; Status UNV Hydralazine HCl (Apresoline) 75 mg TID PO Last administered on 07/11/19at 21:21; Start 07/10/19 at 11:00 Diphenhydramine HCl (Benadryl) 25 mg PRN QHS PRN PO INSOMNIA; Start 07/10/19 at 11:00; Stop 07/11/19 at 11:10; Status DC Clonidine HCl (Catapres) 0.3 mg Q8HRS PO Last administered on 07/12/19at 05:46; Start 07/11/19 at 14:00 Cefdinir (Omnicef) 300 mg HS PO Last administered on 07/11/19at 21:21; Start 07/11/19 at 21:00 Cyanocobalamin (Vitamin B-12) 1,000 mcg 1X ONCE IM Last administered on 07/11/19 18:06; Start 07/11/19 at 16:45; Stop 07/11/19 at 16:46; Status DC Active Scripts Active Reported Amlodipine Besylate 10 Mg Tablet 10 Mg PO DAILY Hydralazine Hcl 50 Mg Tablet 1 Tab PO TID Carvedilol 25 Mg Tablet 25 Mg PO BIDWMEALS Promethazine Hcl 25 Mg Tablet 1 Tab PO PRN Q6HRS Miralax (Polyethylene Glycol 3350) 17 Gm Powd.pack 1 Packet PO BID Lantus (Insulin Glargine,Hum.rec.anlog) 100 Unit/1 Ml Vial 25 Unit SQ QHS Novolog (Insulin Aspart) 100 Unit/1 Ml Cartridge 4 Unit SQ TID Lexapro (Escitalopram Oxalate) 20 Mg Tablet 1 Tab PO DAILY Tramadol Hcl 50 Mg Tablet 1 Tab PO PRN Q6HRS Pantoprazole Sodium (Pantoprazole Sodium) 40 Mg Tablet.dr 1 Tab PO DAILY Dicyclomine Hcl 10 Mg Capsule 1 Cap PO TID Vitals/I & O Vital Sign - Last 24 Hours 07/11/19 07/11/19 07/11/19 07/11/19 09:22 11:00 14:20 14:20 Temp 97.7 97.7 Pulse 70 70 70 Resp 17 B/P (MAP) 162/92 (115) 162/92 162/92 Pulse Ox 96 97 O2 Delivery Room Air Room Air 07/11/19 07/11/19 07/11/19 07/11/19 14:22 15:00 15:22 15:48 Temp 97.8 97.8 Pulse 74 Resp 16 17 18 18 B/P (MAP) 159/84 (109) Pulse Ox 97 97 97 O2 Delivery Room Air Room Air Room Air Room Air 07/11/19 07/11/19 07/11/19 07/11/19 16:18 18:00 18:59 20:00 Temp 97.4 97.4 Pulse 74 76 Resp 16 16 B/P (MAP) 159/84 121/76 (91) Pulse Ox 97 96 O2 Delivery Room Air Room Air Room Air 07/11/19 07/11/19 07/11/19 07/11/19 21:20 21:21 21:22 21:56 Pulse 76 76 Resp 16 16 B/P (MAP) 121/76 121/76 Pulse Ox 96 96 O2 Delivery Room Air Room Air 07/11/19 07/11/19 07/11/19 07/12/19 22:20 22:20 23:00 02:35 Temp 98.0 98.0 Pulse 77 Resp 16 16 15 16 B/P (MAP) 150/85 (106) Pulse Ox 95 95 O2 Delivery Room Air Room Air Room Air Room Air 07/12/19 07/12/19 07/12/19 07/12/19 03:00 03:30 05:46 05:46 Temp 98.9 98.9 Pulse 72 72 Resp 16 16 16 B/P (MAP) 145/88 (107) 145/88 Pulse Ox 96 96 O2 Delivery Room Air Room Air Room Air 07/12/19 07:00 Temp 97.4 97.4 Pulse 76 Resp 16 B/P (MAP) 150/91 (110) Pulse Ox 96 O2 Delivery Room Air Intake and Output 07/11/19 07/11/19 07/12/19 15:00 23:00 07:00 Intake Total 600 ml 300 ml 650 ml Output Total 1 ml Balance 600 ml 299 ml 650 ml MARIAH CAMPBELL MD Jul 12, 2019 08:54
[2019-07-12] MEDS: IV NORMAL SALINE 1000ML BAG 1,000 ML IV SCH (08:57)
--- NOTE | 2019-07-12 09:35 | PDOC ---
PROGRESS NOTES Subjective Subjective The pt reports episode of hypoglycemia this am. With episode pt experience diffuse pain throughout her body. States sugars at home labial as well. 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 No WBC throughout hospital course. Pain possibly related to gastroparesis or 2/2 N/V. 2.) ESRD stage IV, not on dialysis, nephrology consulted 3.) Anemia of CKD 4.) Proteinuria - nephrology consulted 5.) N/V improved, on empiric antiemetics therapy 6.) Diarrhea gastric occult blood positive 7.) Gastroenteritis vs gastroparesis stable/resolved, GI consulted 8.) DM type I improved but remains labial, managed by primary 9.) HTN improved, but remains difficult to control, managed by primary 10.) Suspected UTI UCx NG, Bcx NGTD, so Rocephin d/beena 11.) H/o pancreatitis Lipase neg 12.) Left adrenal gland enlargement not emergent 13.) Will continue to follow Comment Review of Relevant I have reviewed the following items mine (where applicable) has been applied. Labs Laboratory Tests Test 07/10/19 10:30 07/10/19 16:10 07/10/19 16:36 07/10/19 20:31 Glucose (Fingerstick) 130 mg/dL (70-99) 169 mg/dL (70-99) 157 mg/dL (70-99) Urine Random Creatinine 43.1 mg/dL (Not Establ.) Urine Random Total Protein 139.8 mg/dL (Not Establ.) Urine Protein/Creatinine Ratio 3244 mg/g (0-200) Test 07/11/19 03:50 07/11/19 07:14 07/11/19 11:27 07/11/19 16:59 Sodium Level 139 mmol/L (136-145) Potassium Level 4.5 mmol/L (3.5-5.1) Chloride Level 107 mmol/L (98-107) Carbon Dioxide Level 22 mmol/L (21-32) Anion Gap 10 (6-14) Blood Urea Nitrogen 20 mg/dL (7-20) Creatinine 3.3 mg/dL (0.6-1.0) Estimated GFR (Cockcroft-Gault) 19.7 Glucose Level 77 mg/dL (70-99) Calcium Level 8.2 mg/dL (8.5-10.1) Lipase 264 U/L (73-393) Glucose (Fingerstick) 77 mg/dL (70-99) 120 mg/dL (70-99) 89 mg/dL (70-99) Test 07/11/19 20:35 07/12/19 03:55 07/12/19 05:28 07/12/19 07:17 Glucose (Fingerstick) 121 mg/dL (70-99) 85 mg/dL (70-99) 38 mg/dL (70-99) Sodium Level 138 mmol/L (136-145) Potassium Level 4.6 mmol/L (3.5-5.1) Chloride Level 109 mmol/L (98-107) Carbon Dioxide Level 19 mmol/L (21-32) Anion Gap 10 (6-14) Blood Urea Nitrogen 19 mg/dL (7-20) Creatinine 3.2 mg/dL (0.6-1.0) Estimated GFR (Cockcroft-Gault) 20.4 Glucose Level 66 mg/dL (70-99) Calcium Level 8.3 mg/dL (8.5-10.1) Test 07/12/19 07:41 07/12/19 08:43 Glucose (Fingerstick) 205 mg/dL (70-99) 127 mg/dL (70-99) Laboratory Tests Test 07/11/19 11:27 07/11/19 16:59 07/11/19 20:35 07/12/19 03:55 Glucose (Fingerstick) 120 mg/dL (70-99) 89 mg/dL (70-99) 121 mg/dL (70-99) Sodium Level 138 mmol/L (136-145) Potassium Level 4.6 mmol/L (3.5-5.1) Chloride Level 109 mmol/L (98-107) Carbon Dioxide Level 19 mmol/L (21-32) Anion Gap 10 (6-14) Blood Urea Nitrogen 19 mg/dL (7-20) Creatinine 3.2 mg/dL (0.6-1.0) Estimated GFR (Cockcroft-Gault) 20.4 Glucose Level 66 mg/dL (70-99) Calcium Level 8.3 mg/dL (8.5-10.1) Test 07/12/19 05:28 07/12/19 07:17 07/12/19 07:41 07/12/19 08:43 Glucose (Fingerstick) 85 mg/dL (70-99) 38 mg/dL (70-99) 205 mg/dL (70-99) 127 mg/dL (70-99) Microbiology 07/08/19 Blood Culture - Preliminary, Resulted NO GROWTH AFTER 3 DAYS 07/07/19 Urine Culture - Final, Complete 07/07/19 Urine Culture Result 1 (TASHI) - Final, Complete Medications Current Medications Sodium Chloride 1,000 ml @ 1,000 mls/hr 1X ONCE IV Last administered on 07/07/19at 18:47; Start 07/07/19 at 19:00; Stop 07/07/19 at 19:59; Status DC Prochlorperazine Edisylate (Compazine) 10 mg 1X ONCE IV Last administered on 07/07/19at 18:50; Start 07/07/19 at 19:00; Stop 07/07/19 at 19:01; Status DC Fentanyl Citrate (Fentanyl 2ml Vial) 50 mcg 1X ONCE IV Last administered on 07/07/19 18:48; Start 07/07/19 at 19:00; Stop 07/07/19 at 19:01; Status DC Lorazepam (Ativan Inj) 1 mg 1X ONCE IV Last administered on 07/07/19at 18:50; Start 07/07/19 at 19:00; Stop 07/07/19 at 19:01; Status DC Pantoprazole Sodium (PROTONIX VIAL for IV PUSH) 40 mg 1X ONCE IVP Last administered on 07/07/19at 20:10; Start 07/07/19 at 20:30; Stop 07/07/19 at 20:31; Status DC Sodium Chloride 1,000 ml @ 1,000 mls/hr 1X ONCE IV Last administered on 07/07/19at 20:11; Start 07/07/19 at 21:00; Stop 07/07/19 at 21:59; Status DC Hydralazine HCl (Apresoline Inj) 10 mg 1X ONCE IVP Last administered on 07/07/19at 20:40; Start 07/07/19 at 20:30; Stop 07/07/19 at 20:31; Status DC Ondansetron HCl (Zofran) 4 mg PRN Q8HRS PRN IV NAUSEA/VOMITING 1ST CHOICE; Start 07/07/19 at 22:15; Stop 07/08/19 at 22:14; Status Cancel Fentanyl Citrate (Fentanyl 2ml Vial) 50 mcg PRN Q4HRS PRN IVP SEVERE PAIN 7-10 Last administered on 07/12/19 08:58; Start 07/07/19 at 22:45 Prochlorperazine Edisylate (Compazine) 10 mg PRN Q6HRS PRN IV NAUSEA/VOMITING 1ST CHOICE Last administered on 07/08/19 08:25; Start 07/08/19 at 03:30 Insulin Human Lispro (HumaLOG) 0-5 UNITS TIDWMEALS SQ Last administered on 07/10/19 09:01; Start 07/08/19 at 08:00 Dextrose (Dextrose 50%-Water Syringe) 12.5 gm PRN Q15MIN PRN IV SEE COMMENTS Last administered on 07/12/19 07:27; Start 07/08/19 at 04:00 Hydralazine HCl (Apresoline) 50 mg TID PO Last administered on 07/10/19 07:53; Start 07/08/19 at 09:00; Stop 07/10/19 at 10:50; Status DC Carvedilol (Coreg) 25 mg BIDWMEALS PO Last administered on 07/12/19 08:47; Start 07/08/19 at 09:00 Insulin Glargine (Lantus Syringe) 25 unit QHS SQ Last administered on 07/11/19at 21:23; Start 07/08/19 at 21:00 Pantoprazole Sodium (Protonix) 40 mg DAILY PO Last administered on 07/12/19 08:46; Start 07/08/19 at 13:00 Polyethylene Glycol (miraLAX PACKET) 17 gm BID PO Last administered on 07/12/19 08:47; Start 07/08/19 at 21:00 Citalopram Hydrobromide (CeleXA) 40 mg DAILY PO Last administered on 07/12/19 08:47; Start 07/08/19 at 13:00 Insulin Human Lispro (HumaLOG) 4 units TIDWMEALS SQ Last administered on 07/10/19 19:07; Start 07/08/19 at 12:05 Promethazine HCl (Phenergan) 25 mg PRN Q6HRS PRN PO NAUSEA/VOMITING Last administered on 07/08/19 21:41; Start 07/08/19 at 12:15 Sodium Chloride 1,000 ml @ 100 mls/hr Q10H IV Last administered on 07/12/19 08:57; Start 07/08/19 at 12:15 Heparin Sodium (Porcine) (Heparin Sodium) 5,000 unit Q8HRS SQ Last administered on 07/12/19 05:50; Start 07/08/19 at 14:00 Ceftriaxone Sodium (Rocephin) 1 gm Q24H IVP Last administered on 07/11/19 15:49; Start 07/08/19 at 12:30; Stop 07/11/19 at 16:00; Status DC Sodium Chloride (Normal Saline Flush) 3 ml QSHIFT PRN IV AFTER MEDS AND BLOOD DRAWS; Start 07/08/19 at 13:00 Acetaminophen (Tylenol) 650 mg PRN Q4HRS PRN PO TEMP OVER 100.4F OR MILD PAIN Last administered on 07/10/19 06:13; Start 07/08/19 at 13:00 Clonidine HCl (Catapres) 0.1 mg PRN Q6HRS PRN PO SBP>160 OR DBP>90 Last administered on 07/11/19 02:48; Start 07/08/19 at 13:00 Docusate Sodium (Colace) 100 mg PRN BID PRN PO HARD STOOLS; Start 07/08/19 at 13:00 Albuterol Sulfate (Ventolin Neb Soln) 2.5 mg PRN Q4HRS PRN NEB SHORTNESS OF BREATH; Start 07/08/19 at 13:00 Lorazepam (Ativan) 0.5 mg PRN Q4HRS PRN PO ANXIETY / AGITATION Last administered on 07/11/19 21:20; Start 07/08/19 at 13:00 Lactobacillus Rhamnosus (Culturelle) 1 cap BID PO Last administered on 07/12/19at 08:47; Start 07/08/19 at 21:00 Tramadol HCl (Ultram) 50 mg PRN Q6HRS PRN PO PAIN Last administered on 07/12/19 05:46; Start 07/08/19 at 18:15 Glucose (Insta-Glucose) 15 gm STK-MED ONCE .ROUTE ; Start 07/08/19 at 21:23; Stop 07/08/19 at 21:23; Status DC Glucose (Insta-Glucose) 15 gm PRN Q15MIN PRN PO LOW BLOOD SUGAR Last administered on 07/08/19 21:30; Start 07/08/19 at 21:30 Lubiprostone (Amitiza) 24 mcg BIDWMEALS PO Last administered on 07/12/19 08:46; Start 07/09/19 at 17:00 Amlodipine Besylate (Norvasc) 10 mg DAILY PO Last administered on 07/12/19 08:46; Start 07/09/19 at 14:17 Clonidine HCl (Catapres) 0.1 mg Q8HRS PO Last administered on 07/10/19 06:13; Start 07/09/19 at 16:30; Stop 07/10/19 at 10:47; Status DC Diphenhydramine HCl (Benadryl) 25 mg PRN QHS PRN PO INSOMNIA Last administered on 07/11/19 21:21; Start 07/10/19 at 04:00 Diphenhydramine HCl (Benadryl) 25 mg 1X PRN PRN PO INSOMNIA; Start 07/10/19 at 04:00 Cyclobenzaprine HCl (Flexeril) 10 mg PRN Q6HRS PRN PO MUSCLE SPASMS Last admini stered on 07/10/19at 11:13; Start 07/10/19 at 04:00 Bisacodyl (Dulcolax Tab) 10 mg 1X ONCE PO ; Start 07/10/19 at 10:30; Stop 07/10/19 at 10:31; Status DC Clonidine HCl (Catapres) 0.2 mg Q8HRS PO Last administered on 07/11/19at 05:05; Start 07/10/19 at 11:00; Stop 07/11/19 at 11:35; Status DC Clonidine HCl (Catapres) 0.2 mg Q8HRS PO ; Start 07/10/19 at 14:00; Status UNV Hydralazine HCl (Apresoline) 75 mg TID PO Last administered on 07/12/19at 08:47; Start 07/10/19 at 11:00 Diphenhydramine HCl (Benadryl) 25 mg PRN QHS PRN PO INSOMNIA; Start 07/10/19 at 11:00; Stop 07/11/19 at 11:10; Status DC Clonidine HCl (Catapres) 0.3 mg Q8HRS PO Last administered on 07/12/19at 05:46; Start 07/11/19 at 14:00 Cefdinir (Omnicef) 300 mg HS PO Last administered on 07/11/19at 21:21; Start 07/11/19 at 21:00 Cyanocobalamin (Vitamin B-12) 1,000 mcg 1X ONCE IM Last administered on at 18:06; Start 07/11/19 at 16:45; Stop 07/11/19 at 16:46; Status DC Active Scripts Active Reported Amlodipine Besylate 10 Mg Tablet 10 Mg PO DAILY Hydralazine Hcl 50 Mg Tablet 1 Tab PO TID Carvedilol 25 Mg Tablet 25 Mg PO BIDWMEALS Promethazine Hcl 25 Mg Tablet 1 Tab PO PRN Q6HRS Miralax (Polyethylene Glycol 3350) 17 Gm Powd.pack 1 Packet PO BID Lantus (Insulin Glargine,Hum.rec.anlog) 100 Unit/1 Ml Vial 25 Unit SQ QHS Novolog (Insulin Aspart) 100 Unit/1 Ml Cartridge 4 Unit SQ TID Lexapro (Escitalopram Oxalate) 20 Mg Tablet 1 Tab PO DAILY Tramadol Hcl 50 Mg Tablet 1 Tab PO PRN Q6HRS Pantoprazole Sodium (Pantoprazole Sodium) 40 Mg Tablet.dr 1 Tab PO DAILY Dicyclomine Hcl 10 Mg Capsule 1 Cap PO TID Vitals/I & O Vital Sign - Last 24 Hours 07/11/19 07/11/19 07/11/19 07/11/19 11:00 14:20 14:20 14:22 Temp 97.7 97.7 Pulse 70 70 70 Resp 17 16 B/P (MAP) 162/92 (115) 162/92 162/92 Pulse Ox 97 O2 Delivery Room Air Room Air 07/11/19 07/11/19 07/11/19 07/11/19 15:00 15:22 15:48 16:18 Temp 97.8 97.8 Pulse 74 Resp 17 18 18 16 B/P (MAP) 159/84 (109) Pulse Ox 97 97 97 97 O2 Delivery Room Air Room Air Room Air Room Air 07/11/19 07/11/19 07/11/19 07/11/19 18:00 18:59 20:00 21:20 Temp 97.4 97.4 Pulse 74 76 Resp 16 16 B/P (MAP) 159/84 121/76 (91) Pulse Ox 96 96 O2 Delivery Room Air Room Air Room Air 07/11/19 07/11/19 07/11/19 07/11/19 21:21 21:22 21:56 22:20 Pulse 76 76 Resp 16 16 B/P (MAP) 121/76 121/76 Pulse Ox 96 O2 Delivery Room Air Room Air 07/11/19 07/11/19 07/12/19 07/12/19 22:20 23:00 02:35 03:00 Temp 98.0 98.9 98.0 98.9 Pulse 77 72 Resp 16 15 16 16 B/P (MAP) 150/85 (106) 145/88 (107) Pulse Ox 95 95 96 O2 Delivery Room Air Room Air Room Air Room Air 07/12/19 07/12/19 07/12/19 07/12/19 03:30 05:46 05:46 07:00 Temp 97.4 97.4 Pulse 72 76 Resp 16 16 16 B/P (MAP) 145/88 150/91 (110) Pulse Ox 96 96 O2 Delivery Room Air Room Air Room Air 07/12/19 07/12/19 07/12/19 07/12/19 08:46 08:47 08:47 08:58 Pulse 76 76 76 B/P (MAP) 150/91 150/91 150/91 O2 Delivery Room Air Intake and Output 07/11/19 07/11/19 07/12/19 15:00 23:00 07:00 Intake Total 600 ml 300 ml 650 ml Output Total 1 ml Balance 600 ml 299 ml 650 ml LYLY RAYMOND MD Jul 12, 2019 09:35
[2019-07-12 11:00] VITALS: BP 173/98
--- NOTE | 2019-07-12 11:36 | PDOC ---
Subjective: Subjective: Hypoglycemic this morning - upset that she didn't get Sprite. Wants to go home but someone told her she had to stay for 2 more days. Ultram didn't really help. Hasn't stooled - now agrees to try Relistor. Objective: Objective: D/w nurse - c/o flank pain, hasn't stooled, no vomiting. Ultram seemed to work. D/w charge nurse as well - pt upset about not getting regular Sprite this morning after dextrose - was advised to stay in bed due to her c/o dizziness, pt got up to use the restroom. Vital Signs: Vital Signs Date Time Temp Pulse Resp B/P (MAP) Pulse Ox O2 Delivery O2 Flow Rate FiO2 07/12/19 11:00 97.5 73 16 173/98 (123) 97 Room Air 97.5 Labs: Laboratory Tests Test 07/11/19 16:59 07/11/19 20:35 07/12/19 03:55 07/12/19 05:28 Glucose (Fingerstick) 89 mg/dL 121 mg/dL 85 mg/dL Sodium Level 138 mmol/L Potassium Level 4.6 mmol/L Chloride Level 109 mmol/L Carbon Dioxide Level 19 mmol/L Anion Gap 10 Blood Urea Nitrogen 19 mg/dL Creatinine 3.2 mg/dL Estimated GFR (Cockcroft-Gault) 20.4 Glucose Level 66 mg/dL Calcium Level 8.3 mg/dL Test 07/12/19 07:17 07/12/19 07:41 07/12/19 08:43 Glucose (Fingerstick) 38 mg/dL 205 mg/dL 127 mg/dL PE: GEN: NAD - 4 juice cups empty, a few bites of biscuits and gravy and potatoes eaten LUNGS: room air HEART: RRR ABD: NABS, soft, still left flank tenderness wrapping around ribs - today seems has LUQ and epigastrium too NEURO/PSYCH: A & O 3 A/P: Left flank pain Gastroparesis, constipation HTN, CKD, DM, ACD -- Try Relistor. JANICE JACOBO Jul 12, 2019 11:36
--- NOTE | 2019-07-12 11:50 | PDOC ---
Renal-Progress Notes Subjective Notes Notes STILL HAS GI SYMPTOMS History of Present Illness Hx of present illness STABLE Vitals Vitals Vital Signs Date Time Temp Pulse Resp B/P (MAP) Pulse Ox O2 Delivery O2 Flow Rate FiO2 07/12/19 11:00 97.5 73 16 173/98 (123) 97 Room Air 97.5 Weight Weight [ ] I.O. Intake and Output Intake and Output 07/12/19 07:00 Intake Total 1550 ml Output Total 1 ml Balance 1549 ml Intake Oral 1550 ml Output Stool Total 1 ml # Voids 7 Labs Labs Laboratory Tests Test 07/11/19 16:59 07/11/19 20:35 07/12/19 03:55 07/12/19 05:28 Glucose (Fingerstick) 89 mg/dL (70-99) 121 mg/dL (70-99) 85 mg/dL (70-99) Sodium Level 138 mmol/L (136-145) Potassium Level 4.6 mmol/L (3.5-5.1) Chloride Level 109 mmol/L (98-107) Carbon Dioxide Level 19 mmol/L (21-32) Anion Gap 10 (6-14) Blood Urea Nitrogen 19 mg/dL (7-20) Creatinine 3.2 mg/dL (0.6-1.0) Estimated GFR (Cockcroft-Gault) 20.4 Glucose Level 66 mg/dL (70-99) Calcium Level 8.3 mg/dL (8.5-10.1) Test 07/12/19 07:17 07/12/19 07:41 07/12/19 08:43 Glucose (Fingerstick) 38 mg/dL (70-99) 205 mg/dL (70-99) 127 mg/dL (70-99) Micro Micro Microbiology 07/08/19 Blood Culture - Preliminary, Resulted NO GROWTH AFTER 3 DAYS 07/07/19 Urine Culture - Final, Complete 07/07/19 Urine Culture Result 1 (TASHI) - Final, Complete Physical Exam General Appearance: no apparent distress Skin: warm Respiratory: bilateral CTA Heart: S1S2 Abdomen: soft, bowel sounds present Genitourinary: bladder flat Extremities: pulses present Neurology: alert Assessment Assessment IMP CKD STAGE 4 WITH METAL FRAMER F 3.3-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 AVOID NEPHROTOXINS CONT WITH HYDRATION INCREASED CLONIDINE WILL FOLLOW ANNA ROSE MD Jul 12, 2019 11:50
[2019-07-12] MEDS ORDERED: METHYLNALTREXONE 12 MG/0.6 ML VIAL. SQ ONE (12:00)
[2019-07-12] MEDS ORDERED: CYCLOBENZAPRINE 10 MG TABLET. PO PRN (13:15)
[2019-07-12] MEDS ORDERED: LIDOCAINE (700MG/PATCH) PATCH. TD SCH (13:15)
[2019-07-12] MEDS ORDERED: CYCL10TA2 PO (13:21)
[2019-07-12] MEDS ORDERED: TRAM50TA PO (13:21)
[2019-07-12] MEDS ORDERED: LIDO700A21 TD (13:21)
[2019-07-12 15:00] VITALS: BP 165/93
--- NOTE | 2019-07-12 17:10 | PDOC3 ---
Discharge Summary Visit Information Date of Admission: Jul 07, 2019 Date of Discharge: Jul 12, 2019 Admitting Diagnosis: N/V abdominal pain Final Diagnosis Problems Medical Problems: (1) End stage renal disease Status: Acute (2) Vomiting Status: Acute Brief Hospital Course Allergies Allergies Coded Allergies Type Severity Reaction Last Updated Verified ondansetron Allergy Severe edema 07/12/19 Yes ketorolac Allergy Intermediate hives 07/12/19 Yes morphine Allergy Intermediate hives 07/12/19 Yes Vital Signs Vital Signs Date Time Temp Pulse Resp B/P (MAP) Pulse Ox O2 Delivery O2 Flow Rate FiO2 07/12/19 15:00 98.2 60 16 165/93 (117) 96 Room Air 98.2 Lab Results Laboratory Tests Test 07/10/19 20:31 07/11/19 03:50 07/11/19 07:14 07/11/19 11:27 Glucose (Fingerstick) 157 mg/dL (70-99) 77 mg/dL (70-99) 120 mg/dL (70-99) Sodium Level 139 mmol/L (136-145) Potassium Level 4.5 mmol/L (3.5-5.1) Chloride Level 107 mmol/L (98-107) Carbon Dioxide Level 22 mmol/L (21-32) Anion Gap 10 (6-14) Blood Urea Nitrogen 20 mg/dL (7-20) Creatinine 3.3 mg/dL (0.6-1.0) Estimated GFR (Cockcroft-Gault) 19.7 Glucose Level 77 mg/dL (70-99) Calcium Level 8.2 mg/dL (8.5-10.1) Lipase 264 U/L (73-393) Test 07/11/19 16:59 07/11/19 20:35 07/12/19 03:55 07/12/19 05:28 Glucose (Fingerstick) 89 mg/dL (70-99) 121 mg/dL (70-99) 85 mg/dL (70-99) Sodium Level 138 mmol/L (136-145) Potassium Level 4.6 mmol/L (3.5-5.1) Chloride Level 109 mmol/L (98-107) Carbon Dioxide Level 19 mmol/L (21-32) Anion Gap 10 (6-14) Blood Urea Nitrogen 19 mg/dL (7-20) Creatinine 3.2 mg/dL (0.6-1.0) Estimated GFR (Cockcroft-Gault) 20.4 Glucose Level 66 mg/dL (70-99) Calcium Level 8.3 mg/dL (8.5-10.1) Test 07/12/19 07:17 07/12/19 07:41 07/12/19 08:43 07/12/19 11:03 Glucose (Fingerstick) 38 mg/dL (70-99) 205 mg/dL (70-99) 127 mg/dL (70-99) 172 mg/dL (70-99) Test 07/12/19 13:13 Glucose (Fingerstick) 278 mg/dL (70-99) Laboratory Tests Test 07/11/19 20:35 07/12/19 03:55 07/12/19 05:28 07/12/19 07:17 Glucose (Fingerstick) 121 mg/dL (70-99) 85 mg/dL (70-99) 38 mg/dL (70-99) Sodium Level 138 mmol/L (136-145) Potassium Level 4.6 mmol/L (3.5-5.1) Chloride Level 109 mmol/L (98-107) Carbon Dioxide Level 19 mmol/L (21-32) Anion Gap 10 (6-14) Blood Urea Nitrogen 19 mg/dL (7-20) Creatinine 3.2 mg/dL (0.6-1.0) Estimated GFR (Cockcroft-Gault) 20.4 Glucose Level 66 mg/dL (70-99) Calcium Level 8.3 mg/dL (8.5-10.1) Test 07/12/19 07:41 07/12/19 08:43 07/12/19 11:03 07/12/19 13:13 Glucose (Fingerstick) 205 mg/dL (70-99) 127 mg/dL (70-99) 172 mg/dL (70-99) 278 mg/dL (70-99) Brief Hospital Course Ms Lynch is a 33yo F w/ PMhx type I DM, HTN, gastroparesis, and CKD who p/w N/V/D over the course of two days prior to admit with LLQ and back pain. Since being admitted on 07/08/19 she feels like her N/V has improved but she still has persistent pain. The pain begins in her left flank but does have a component that is located in her LLQ. The pt underwent a CT on 07/07. The eval of the abd and pelvis was somewhat limited b/c they were unable to use IV contrast. They were able to identify that the left adrenal gland nodule had increase in size from previous exam from 2012 (thought to be an adenoma). They also reported that the bladder had some thickening consistent with a subacute distention or cystitis. GI and nephrology were consulted. She reported a gastroparesis along with her DM. It was thought that the N/V may have been related to the gastroparesis. At the same time, it was thought that some of the symptoms could also be related to a superimposed enteritis or peptic disease could also be playing a role. The pt was initially started on Rocephin for a possible UTI. Her UCxs have NGTD. She initially had a slight left shift but since admission at has returned to nml. Her WBC has remained nml throughout her hospitalization. As noted above her imaging of her bladder was thought that it may be secondary to a cystitis. With the persistent pelvic/flank pain an u/s was ordered. Over the course of her hospitalization her BP and FSBS have been labial. Her Cr on admission was 4.1 but since has returned to her reported baseline of 2.5-3.2. Seen by Measuring Machine Operator, nephrology, and GI. 07/11: Left flank pain worse w/ movement, tolerating PO, no vomiting, hasn't stooled, wants to have PICC line due to 6th IV infiltration, tells me fentanyl and tramadol don't work for her pain. I have advised her IV pain medications don't work when the IV is infiltrated. Eating 25-50% of meals, only asking for pain meds and a heating pack. Feeling improved after [facility] pain treatment and plan for d/c home today with plans for home health and aquatic therapy when able. Problem list - No nephrolithiasis or hydronephrosis. Left adrenal gland nodule increase in size from previous exam from 2012 likely adenoma. Normal appendix. RENAL FAILURE// we NEED BASELINE LABS FROM NEPHROLOGY OFFICE Proteinuria Hypertension, accelerated likely hypertensive/ DIABETIC nephrosclerosis Intractable vomiting, better Diarrhea thc abuse Cystitis HX STAGE 4 KIDNEY DISEASE cr down to 3.2 DIABETES TYPE 1 hx gastroparesis acute volume depletion drop in hgb may be due to hydration left flank pain Greater than 30 minutes spent on d/c Discharge Information Condition at Discharge: Improved Follow Up: Weeks (1) Disposition/Orders: D/C to Home Scheduled Amlodipine Besylate (Amlodipine Besylate) 10 Mg Tablet, 10 MG PO DAILY for HTN, (Reported) Entered as Reported by: DIOMEDES MARTINEZ on 07/09/191413 Last Action: Continued on 07/09/191415 by DIOMEDES MARTINEZ Carvedilol (Carvedilol) 25 Mg Tablet, 25 MG PO BIDWMEALS for CARDIAC, (Reported) Entered as Reported by: BIA SARAVIA on 07/08/19328 Last Action: Converted on 07/08/19815 by CARLOS DOE Dicyclomine Hcl (Dicyclomine Hcl) 10 Mg Capsule, 1 CAP PO TID, #90 Ref 11 (Reported) Entered as Reported by: CLAU BIANCHI on 06/22/141399 Last Action: HELD on 07/08/191200 by GINA PIÑA MD Escitalopram Oxalate (Lexapro) 20 Mg Tablet, 1 TAB PO DAILY, #90 Ref 3 (Reported) Entered as Reported by: CLAU BIANCHI on 06/22/141399 Last Action: Converted on 07/08/191200 by GINA PIÑA MD Hydralazine Hcl (Hydralazine Hcl) 50 Mg Tablet, 1 TAB PO TID for HTN, #90 Ref 5 (Reported) Entered as Reported by: BIA SARAVIA on 07/08/19328 Last Action: Continued on 07/08/19815 by CARLOS DOE Insulin Aspart (Novolog) 100 Unit/1 Ml Cartridge, 4 UNIT SQ TID, (Reported) Entered as Reported by: CLAU BIANCHI on 06/22/141399 Last Action: Converted on 07/08/191200 by GINA PIÑA MD Insulin Glargine,Hum.rec.anlog (Lantus) 100 Unit/1 Ml Vial, 25 UNIT SQ QHS, (Reported) Entered as Reported by: CLAU BIANCHI on 06/22/141399 Last Action: Continued on 07/08/191200 by GINA PIÑA MD Lidocaine (Lidocaine PATCH ) 1 Each Adh..patch, 1 PATCH TD DAILY for neuropathic back pain for 30 Days, #30 Prescribed by: MARIAH CAMPBELL MD on 07/12/19 1321 Pantoprazole Sodium (Pantoprazole Sodium ) 40 Mg Tablet.dr, 1 TAB PO DAILY, #30 Ref 3 (Reported) Entered as Reported by: CLAU BIANCHI on 06/22/141399 Last Action: Continued on 07/08/191200 by GINA PIÑA MD Polyethylene Glycol 3350 (Miralax) 17 Gm Powd.pack, 1 PACKET PO BID, #30 Ref 3 (Reported) Entered as Reported by: CLAU BIANCHI on 06/22/141399 Last Action: Continued on 07/08/191200 by GINA PIÑA MD Promethazine Hcl (Promethazine Hcl) 25 Mg Tablet, 1 TAB PO PRN Q6HRS, #20 (Reported) Entered as Reported by: CLAU BIANCHI on 06/22/141399 Last Action: Converted on 07/08/191200 by GINA PIÑA MD Tramadol Hcl (Tramadol Hcl) 50 Mg Tablet, 1 TAB PO PRN Q6HRS for Back pain for 6 Days, #14 Prescribed by: MARIAH CAMPBELL MD on 07/12/191320 Scheduled PRN Cyclobenzaprine Hcl (Cyclobenzaprine Hcl) 10 Mg Tablet, 10 MG PO PRN Q6HRS PRN for MUSCLE SPASMS for 10 Days, #20 Prescribed by: MARIAH CAMPBELL MD on 07/12/191320 Discontinued Medications Albuterol Sulfate (Albuterol Sulfate Hfa Inhaler) 8.5 Gm Hfa.aer.ad, 2 PUFF INH PRN Q6HRS PRN for SEE COMMENTS, Ref 0 (Reported) Entered as Reported by: CLAU BIANCHI on 06/22/141399 Last Action: Discontinued on 07/07/192132 by BIA SARAVIA Amitriptyline Hcl (Amitriptyline Hcl) 25 Mg Tablet, 2 TAB PO QHS, #30 Ref 5 (Reported) Entered as Reported by: CLAU BIANCHI on 06/22/141399 Last Action: Discontinued on 07/07/192132 by BIA HER Amlodipine Besylate (Amlodipine Besylate) 10 Mg Tablet, 1 TAB PO DAILY, #30 Ref 5 (Reported) Entered as Reported by: CLAU BIANCHI on 06/22/141399 Last Action: Discontinued on 07/08/19328 by BIA HER Gabapentin (Gabapentin ) 100 Mg Capsule, 1 CAP PO TID, #90 Ref 2 (Reported) Entered as Reported by: CLAU BIANCHI on 06/22/141399 Last Action: Discontinued on 07/07/192132 by BIA HER Lisinopril (Lisinopril) 40 Mg Tablet, 1 TAB PO DAILY, #30 Ref 5 (Reported) Entered as Reported by: CLAU BIANCHI on 06/22/141399 Last Action: Discontinued on 07/07/192132 by BIA HER Lorazepam (Lorazepam) 1 Mg Tablet, 1 TAB PO PRN Q6HRS PRN for ANXIETY, #90 (Reported) Entered as Reported by: CLAU BIANCHI on 06/22/141399 Last Action: Discontinued on 07/07/192132 by BIA HER Nicotine Polacrilex (Nicotine Lozenge) 2 Mg Lozenge, 4 MG BC PRN Q1HR PRN for SMOKING CESSATION, (Reported) Entered as Reported by: CLAU BIANCHI on 06/22/141399 Last Action: Discontinued on 07/07/192132 by MARIAH NICOLE MD Jul 12, 2019 17:10
[2019-07-12] MEDS ORDERED: PATCH REMOVAL. MC SCH (21:00)
== END 2019-07-12 15:45 | disposition home or self-care (01) | DRG 73 ==
LOC: ER 18:01 → 6 SOUTH 20:07 → 5 SOUTH 07-10 16:54
PROVIDERS: ADMIT Family Medicine; ATTEND Family Medicine
PROC: 05H733Z Insertion of Infusion Device into Right Axillary Vein, Percutaneous Approach (ICD-10-PCS; principal; 2019-07-11)
PROC: B54MZZA Ultrasonography of Right Upper Extremity Veins, Guidance (ICD-10-PCS; 2019-07-11)
DX: E10.43 Type 1 diabetes mellitus with diabetic autonomic (poly)neuropathy (principal); N17.0 Acute kidney failure with tubular necrosis; N18.6 End stage renal disease; N39.0 Urinary tract infection, site not specified; I12.0 Hypertensive chronic kidney disease with stage 5 chronic kidney disease or end stage renal disease; K52.9 Noninfective gastroenteritis and colitis, unspecified; K31.84 Gastroparesis; E10.22 Type 1 diabetes mellitus with diabetic chronic kidney disease; E86.9 Volume depletion, unspecified; D63.1 Anemia in chronic kidney disease; E10.649 Type 1 diabetes mellitus with hypoglycemia without coma; F12.10 Cannabis abuse, uncomplicated; G89.29 Other chronic pain; K59.00 Constipation, unspecified; Z79.4 Long term (current) use of insulin; Z82.49 Family history of ischemic heart disease and other diseases of the circulatory system; Z90.49 Acquired absence of other specified parts of digestive tract; Z88.5 Allergy status to narcotic agent; Z88.8 Allergy status to other drugs, medicaments and biological substances
CPT/HCPCS: 36415; 36569; 74176; 76830; 76856; 80048; 80053; 80307; 81001; 82271; 82565; 82570; 82607; 82947; 82962; 83036; 83540; 83550; 83605; 83690; 83735; 84156; 84703; 85025; 85027; 85610; 85730; 87040; 87086; 93306; 94760; 96361; 96374; 96375; 96376; C9113; J0360; J0696; J0780; J1644; J1815; J2060; J2212; J3010; J3420; J7030; J7042; Q0163; Q0169; 99285-25; G0378

== ENCOUNTER 2019-11-18 17:05 | Emergency (ER) | payer OTHER ==
[~2019-11-18] VITALS: Ht 167.6 cm; Wt 59.0 kg
[~2019-11-18 17:05] MED LIST changes: +CARV25TA2 PO; +CYCL10TA2 PO; +HYDR-2869 PO; +ISOS30TA4 PO; +LIDO700A21 TD
[2019-11-18] MEDS ORDERED: ORPHENADRINE CITRATE 60 MG/2 ML VIAL. IM ONE (17:45)
[2019-11-18] MEDS ORDERED: PROCHLORPERAZINE 10 MG/2 ML VIAL. IM ONE (17:45)
--- NOTE | 2019-11-18 18:00 | PHYS DOC ---
Past Medical History Past Medical History: Diabetes-Type I, Hypertension, Kidney Infection, Renal Failure, Other Additional Past Medical Histor: GASTROPERESIS (MARGARET KUMAR APRN) Past Surgical History: Cholecystectomy (MARGARET KUMAR APRN) Smoking Status: Former Smoker Alcohol Use: None Drug Use: None (MARGARET KUMAR APRN) Attending Signature I have participated in the care of this patient and I have reviewed and agree with all pertinent clinical information above including history, exam, and recom mendations. (VIN MOLINA MD) Adult General Chief Complaint Chief Complaint: BACK PAIN - NO INJURY [facility] HPI Patient is a 33 year old female patient who presents with back pain for the last 24 hours. Patient states the pain seemingly gotten worse, states she also has felt some nausea since yesterday as well had an episode of vomiting today. Patient has history of diabetes, end-stage renal disease, hypertension, gastroparesis. States she is concerned that discomfort today she is feeling is worsening of her gastroparesis. States she did miss her dialysis appointment yesterday, because she was not feeling well, however she has not missed otherwise, she has been going to dialysis for the last 3 weeks after she just started. States her blood sugar has been under control, approximately 140 but she is managing this well. States no trauma, no urinary changes. Patient reports she is still producing urine despite being on dialysis. (MARGARET KUMAR APRN) Review of Systems Review of Systems Constitutional: Denies fever or chills reports she has felt malaise yesterday [] Respiratory: Denies cough or shortness of breath [] Cardiovascular: No additional information not addressed in HPI [] GI: Denies abdominal pain, bloody stools or diarrhea states she is felt n auseous, has had 1 or 2 episodes of emesis initially reports started yesterday later reports vomiting started 1 hour ago [] : Denies dysuria or hematuria does states she produces some urine still [] Musculoskeletal: Reports back pain, aching, has been like this since last night, no acute change today [] Integument: Denies rash or skin lesions [] All other systems were reviewed and found to be within normal limits, except as documented in this note. (MARGARET KUMAR APRN) Current Medications Current Medications Current Medications Medications (Trade) Dose Ordered Sig/Brown Start Time Stop Time Status Last Admin Dose Admin Acetaminophen (Tylenol) 650 mg 1X ONCE 11/18/19 20:30 11/18/19 20:31 DC 11/18/19 20:25 650 MG Diphenhydramine HCl (Benadryl) 50 mg 1X ONCE 11/18/19 19:30 11/18/19 19:31 DC 11/18/19 19:45 50 MG Hydralazine HCl (Apresoline Inj) 10 mg 1X ONCE 11/18/19 19:15 11/18/19 19:16 DC 11/18/19 19:30 10 MG Hydralazine HCl (Apresoline) 50 mg TID 11/18/19 18:30 11/18/19 20:42 DC Hyoscyamine (Anaspaz) 0.125 mg PRN Q4HRS PRN 11/18/19 20:30 11/18/19 20:42 DC 11/18/19 20:25 0.125 MG Orphenadrine Citrate (Norflex) 60 mg 1X ONCE 11/18/19 17:45 11/18/19 17:53 DC 11/18/19 17:45 60 MG Prochlorperazine Edisylate (Compazine) 10 mg 1X ONCE 11/18/19 17:45 11/18/19 17:53 DC 11/18/19 17:45 10 MG (VIN MOLINA MD) Allergies Allergies Allergies Coded Allergies Type Severity Reaction Last Updated Verified ondansetron Allergy Severe edema 07/12/19 Yes ketorolac Allergy Intermediate hives 07/12/19 Yes morphine Allergy Intermediate hives 07/12/19 Yes (VIN MOLINA MD) Physical Exam Physical Exam Constitutional: Well developed, well nourished, anxious and restless, non-toxic appearance. Appearing crying without presence of tear, continuously twisting torso[] HENT: Normocephalic, atraumatic,l, oropharynx moist, . [] Eyes: EOMI, makes no eye contact [] Neck: Normal range of motion, no tenderness, supple, no stridor. [] Cardiovascular:Heart rate regular rhythm, no murmur [] Lungs & Thorax: Bilateral breath sounds clear to auscultation [] Abdomen: Bowel sounds normal, soft, no tenderness, no masses, no pulsatile masses. [] Skin: Warm, dry, no erythema, no rash. [] Back: No trauma noted. No deformity palpated. Patient continues to report discomfort on any light touch, unchanged with deeper touch, patient continues to twist torso, bending forward and backwards rocking in bed. [] Extremities: No tenderness, no cyanosis, no clubbing, ROM intact, no edema. [] Neurologic: Alert and oriented X 3, normal motor function, normal sensory function, no focal deficits noted. [] Psychologic: Affect normal, judgement normal, mood normal. [] (MARGAERT KUMAR APRN) Current Patient Data Vital Signs Vital Signs Date Time Temp Pulse Resp B/P (MAP) Pulse Ox O2 Delivery O2 Flow Rate FiO2 11/18/19 19:30 115 205/132 11/18/19 17:20 99.4 20 96 Room Air 99.4 (VIN MOLINA MD) Lab Values Laboratory Tests Test 11/18/19 17:55 11/18/19 18:45 11/18/19 19:40 Gastric Fluid Occult Blood Positive (NEG) White Blood Count 10.6 x10^3/uL (4.0-11.0) Red Blood Count 4.20 x10^6/uL (3.50-5.40) Hemoglobin 12.5 g/dL (12.0-15.5) Hematocrit 37.2 % (36.0-47.0) Mean Corpuscular Volume 89 fL (79-100) Mean Corpuscular Hemoglobin 30 pg (25-35) Mean Corpuscular Hemoglobin Concent 34 g/dL (31-37) Red Cell Distribution Width 15.9 % (11.5-14.5) H Platelet Count 407 x10^3/uL (140-400) H Neutrophils (%) (Auto) 75 % (31-73) H Lymphocytes (%) (Auto) 18 % (24-48) L Monocytes (%) (Auto) 5 % (0-9) Eosinophils (%) (Auto) 1 % (0-3) Basophils (%) (Auto) 1 % (0-3) Neutrophils # (Auto) 8.0 x10^3/uL (1.8-7.7) H Lymphocytes # (Auto) 1.9 x10^3/uL (1.0-4.8) Monocytes # (Auto) 0.5 x10^3/uL (0.0-1.1) Eosinophils # (Auto) 0.1 x10^3/uL (0.0-0.7) Basophils # (Auto) 0.1 x10^3/uL (0.0-0.2) Sodium Level 143 mmol/L (136-145) Potassium Level 4.0 mmol/L (3.5-5.1) Chloride Level 103 mmol/L (98-107) Carbon Dioxide Level 23 mmol/L (21-32) Anion Gap 17 (6-14) H Blood Urea Nitrogen 17 mg/dL (7-20) Creatinine 4.7 mg/dL (0.6-1.0) H Estimated GFR (Cockcroft-Gault) 13.1 BUN/Creatinine Ratio 4 (6-20) L Glucose Level 221 mg/dL (70-99) H Calcium Level 9.6 mg/dL (8.5-10.1) Total Bilirubin 0.4 mg/dL (0.2-1.0) Aspartate Amino Transferase (AST) 14 U/L (15-37) L Alanine Aminotransferase (ALT) 12 U/L (14-59) L Alkaline Phosphatase 105 U/L (46-116) Total Protein 7.7 g/dL (6.4-8.2) Albumin 3.9 g/dL (3.4-5.0) Albumin/Globulin Ratio 1.0 (1.0-1.7) Laboratory Tests 11/18/19 18:45 Laboratory Tests 11/18/19 19:40 (VIN MOLINA MD) Lab Values Laboratory Tests Test 11/18/19 17:55 11/18/19 18:45 11/18/19 19:40 Gastric Fluid Occult Blood Positive (NEG) White Blood Count 10.6 x10^3/uL (4.0-11.0) Red Blood Count 4.20 x10^6/uL (3.50-5.40) Hemoglobin 12.5 g/dL (12.0-15.5) Hematocrit 37.2 % (36.0-47.0) Mean Corpuscular Volume 89 fL (79-100) Mean Corpuscular Hemoglobin 30 pg (25-35) Mean Corpuscular Hemoglobin Concent 34 g/dL (31-37) Red Cell Distribution Width 15.9 % (11.5-14.5) H Platelet Count 407 x10^3/uL (140-400) H Neutrophils (%) (Auto) 75 % (31-73) H Lymphocytes (%) (Auto) 18 % (24-48) L Monocytes (%) (Auto) 5 % (0-9) Eosinophils (%) (Auto) 1 % (0-3) Basophils (%) (Auto) 1 % (0-3) Neutrophils # (Auto) 8.0 x10^3/uL (1.8-7.7) H Lymphocytes # (Auto) 1.9 x10^3/uL (1.0-4.8) Monocytes # (Auto) 0.5 x10^3/uL (0.0-1.1) Eosinophils # (Auto) 0.1 x10^3/uL (0.0-0.7) Basophils # (Auto) 0.1 x10^3/uL (0.0-0.2) Sodium Level 143 mmol/L (136-145) Potassium Level 4.0 mmol/L (3.5-5.1) Chloride Level 103 mmol/L (98-107) Carbon Dioxide Level 23 mmol/L (21-32) Anion Gap 17 (6-14) H Blood Urea Nitrogen 17 mg/dL (7-20) Creatinine 4.7 mg/dL (0.6-1.0) H Estimated GFR (Cockcroft-Gault) 13.1 BUN/Creatinine Ratio 4 (6-20) L Glucose Level 221 mg/dL (70-99) H Calcium Level 9.6 mg/dL (8.5-10.1) Total Bilirubin 0.4 mg/dL (0.2-1.0) Aspartate Amino Transferase (AST) 14 U/L (15-37) L Alanine Aminotransferase (ALT) 12 U/L (14-59) L Alkaline Phosphatase 105 U/L (46-116) Total Protein 7.7 g/dL (6.4-8.2) Albumin 3.9 g/dL (3.4-5.0) Albumin/Globulin Ratio 1.0 (1.0-1.7) Laboratory Tests 11/18/19 18:45 Laboratory Tests 11/18/19 19:40 (MARGARET KUMAR APRN) EKG EKG [] (MARGARET KUMAR APRN) Radiology/Procedures Radiology/Procedures [] (MARGARET KUMAR APRN) Course & Med Decision Making Course & Med Decision Making Pertinent Labs and Imaging studies reviewed. (See chart for details) Patient does dialysis Tuesday//Tuesday. Missed her dialysis day prior. [Reviewed prior visit, with patient having been admitted approximately 11 days earlier, for pain control, reviewed hospitalist notes with patient history of manipulative behavior, requesting Dilaudid, and called hospitalist razia at discharge, as well as hospitalist discussion with patient advising her narcotics will worsen her gastroparesis. Patient does report she thinks this is mostly related to her gastroparesis today or her kidneys. Will provide antiemetics and muscle relaxants for back discomfort, will check labs due to patient missing dialysis. Patient does have primary care who she follows up with, reports she is post follow-up tomorrow but her appointment was canceled RN reports multiple attempts to obtain blood, patient constantly pulling away after needle enters vein, with failure of IV multiple times. Similar pattern with lab attempting to draw. Will attempt to evaluate at minimum metabolic panel Reviewed results, with patient having + Gastric occult blood. Noted same result from 06/2019. Believe likely related to gastroparesis. Patient emesis without david blood noted, noted clear with grainy particles in emeis. Patient with longstanding history of hypertension, presenting with hypertension here today as well, will provide dose of antihypertensive, at dose patient prescribed at home and has not taken. Discussed with patient again, opiods causing worsening of gastroparesis symptoms which she reports is similar to the pain she is having. Later reports she is having back pain worse than abdominal pain. Reviewed labs today, with no acute changes. Patient is to her creatinine is between 3.5-4.6 from previous visits. Potassium remains normal at 4.0. Labs are unremarkable for patient status today. Discussed with patient importance of following up with primary care, and not to missing her dialysis appointment on Tuesday. Patient states that she had called Dr. Mtz and was told is okay to miss. Patient earlier stated that she had just missed and had not called. Discussed importance of diet control with patient, discussed avoiding use of marijuana, patient states she has not used ma rijuana in over a month. Advised patient that marijuana use will cause nausea, abdominal pain in some persons. Patient continues ambulating in room, bent over, and standing up, constantly moving, continuously conversing, with noted changes in history of events during discussion. We will plan to discharge patient, recommendation to continue Tylenol, will provide short course of Levsin, short course of promethazine for nausea. Patient to follow-up with her primary care provider in the next couple days] (MARGARET KUMAR APRN) Dragon Disclaimer Dragon Disclaimer This electronic medical record was generated, in whole or in part, using a voice recognition dictation system. (MARGARET KUMAR APRN) Departure Departure Impression: Primary Impression: Intractable low back pain Additional Impressions: Abdominal pain End stage renal disease Disposition: HOME, SELF-CARE Condition: STABLE Referrals: YASMANY CHISHOLM (PCP) Patient Instructions: Abdominal Pain, Back Pain, Adult Additional Instructions: As we discussed, take Tylenol for your discomfort you may take up to 2 extra strength tablets every 6 hours. For your abdominal pain, you may take the Levsin tablets. If you feel nauseous, you may take the promethazine tablets. Fanta bowie sure you do not miss your dialysis appointment on Tuesday and tried to avoid missing further ones. If you have inability to go for some reason, contact your dialysis center that day. Make sure you are washing your hands well. Make sure you are drinking plenty of fluids. Follow-up with your primary care provider in the next 3 to 4 days. At least call the office and see if they can discuss how you are feeling after starting on the new medications. Scripts Promethazine Hcl (PROMETHAZINE HCL) 12.5 Mg Tablet 12.5 MG PO Q6H PRN for NAUSEA/VOMITING, #12 TAB Prov: MARGARET KUMAR APRN 11/18/19 Hyoscyamine Sulfate (LEVSIN-SL) 0.125 Mg Tab.subl 0.125 MG SL PRN Q4-6HRS PRN for PAIN, #20 TAB Prov: MARGARET KUMAR APRN 11/18/19 Problem Qualifiers Additional Impressions: Abdominal pain Abdominal location: generalized Qualified Codes: R10.84 - Generalized a bdominal pain MARGARET KUMAR APRN Nov 18, 2019 18:00 VIN MOLINA MD Nov 18, 2019 23:17
[2019-11-18 18:09] LABS: GASTRIC OB PAT POSITIVE (NEG)
[2019-11-18 19:06] LABS: BASO # 0.1 x10^3/uL (0.0-0.2); BASO % 1 % (0-3); EOS # 0.1 x10^3/uL (0.0-0.7); EOS % 1 % (0-3); HEMATOCRIT 37.2 % (36.0-47.0); HEMOGLOBIN 12.5 g/dL (12.0-15.5); LYMPH # 1.9 x10^3/uL (1.0-4.8); LYMPH % 18 % (24-48); MEAN CORPUSCULAR HEMOGLOBIN 30 pg (25-35); MEAN CORPUSCULAR HGB CONC 34 g/dL (31-37); MEAN CORPUSCULAR VOLUME 89 fL (79-100); MONO # 0.5 x10^3/uL (0.0-1.1); MONO % 5 % (0-9); NEUT % 75 % (31-73); PLATELET COUNT 407 x10^3/uL (140-400); RED CELL DISTRIBUTION WIDTH 15.9 % (11.5-14.5); WHITE BLOOD COUNT 10.6 x10^3/uL (4.0-11.0)
[2019-11-18] MEDS ORDERED: hydrALAZINE 20 MG/ML VIAL. IVP ONE (19:15)
[2019-11-18 19:30] VITALS: BP 205/132
[2019-11-18] MEDS ORDERED: diphenhydrAMINE 50 MG/ML VIAL IVP ONE (19:30)
[2019-11-18 19:57] LABS: CALCIUM 9.6 mg/dL (8.5-10.1); CREATININE 4.7 mg/dL (0.6-1.0); GFR 13.1
[2019-11-18 20:03] LABS: ALBUMIN 3.9 g/dL (3.4-5.0); TOTAL BILIRUBIN 0.4 mg/dL (0.2-1.0); TOTAL PROTEIN 7.7 g/dL (6.4-8.2)
[2019-11-18] MEDS ORDERED: HYOS0.1265 SL (20:20)
[2019-11-18] MEDS ORDERED: PROM12.58 PO (20:20)
[2019-11-18] MEDS ORDERED: HYOSCYAMINE 0.125 MG TAB.RAPDIS PO PRN (20:30)
[2019-11-18] MEDS ORDERED: ACETAMINOPHEN 325 MG TABLET. PO ONE (20:30)
== END 2019-11-18 20:35 | disposition home or self-care (01) ==
LOC: ER 17:05
DX: M54.5 Low back pain (principal); R10.84 Generalized abdominal pain; N18.6 End stage renal disease; E10.9 Type 1 diabetes mellitus without complications; I10 Essential (primary) hypertension; Z90.49 Acquired absence of other specified parts of digestive tract; Z88.6 Allergy status to analgesic agent; Z88.5 Allergy status to narcotic agent
CPT/HCPCS: 36415; 80053; 82271; 85025; 96372; 96374; 96375; 99284; J0360; J0780; J1200; J2360

== ENCOUNTER 2020-01-09 23:07 | Emergency (ER) | payer OTHER ==
[~2020-01-09] VITALS: Ht 167.6 cm; Wt 59.1 kg
[~2020-01-09 23:07] MED LIST changes: +HYOS0.1265 SL; +PROM12.58 PO
[2020-01-09] MEDS ORDERED: METOCLOPRAMIDE HCL 10 MG/2 ML VIAL. IVP ONE (23:15)
[2020-01-09] MEDS ORDERED: diphenhydrAMINE 50 MG/ML VIAL IVP ONE (23:15)
[2020-01-09] MEDS ORDERED: fentaNYL PF VIAL 100 MCG/2 ML VIAL IV PRN (23:15)
[2020-01-09] MEDS ORDERED: hydrALAZINE 20 MG/ML VIAL. IVP ONE (23:15)
[2020-01-10] MEDS ORDERED: METOCLOPRAMIDE HCL 10 MG/2 ML VIAL. IM ONE
[2020-01-10] MEDS ORDERED: diphenhydrAMINE 50 MG/ML VIAL IM ONE
[2020-01-10] MEDS ORDERED: fentaNYL PF VIAL 100 MCG/2 ML VIAL IM ONE
[2020-01-10 00:16] LABS: BASO # 0.1 x10^3/uL (0.0-0.2); BASO % 1 % (0-3); EOS % 0 % (0-3); HEMATOCRIT 37.3 % (36.0-47.0); HEMOGLOBIN 12.5 g/dL (12.0-15.5); LYMPH # 1.2 x10^3/uL (1.0-4.8); LYMPH % 10 % (24-48); MEAN CORPUSCULAR HEMOGLOBIN 30 pg (25-35); MEAN CORPUSCULAR HGB CONC 34 g/dL (31-37); MEAN CORPUSCULAR VOLUME 88 fL (79-100); MONO # 0.2 x10^3/uL (0.0-1.1); MONO % 2 % (0-9); NEUT # 10.8 x10^3/uL (1.8-7.7); NEUT % 87 % (31-73); PLATELET COUNT 263 x10^3/uL (140-400); RED BLOOD COUNT 4.23 x10^6/uL (3.50-5.40); RED CELL DISTRIBUTION WIDTH 15.8 % (11.5-14.5); WHITE BLOOD COUNT 12.3 x10^3/uL (4.0-11.0)
[2020-01-10 00:24] LABS: CALCIUM 9.7 mg/dL (8.5-10.1); CREATININE 4.7 mg/dL (0.6-1.0); POTASSIUM 4.3 mmol/L (3.5-5.1)
--- NOTE | 2020-01-10 00:24 | PHYS DOC ---
Past Medical History Past Medical History: Diabetes-Type I, Hypertension, Kidney Infection, Renal Failure, Other Additional Past Medical Histor: GASTROPERESIS Past Surgical History: Cholecystectomy Smoking Status: Current Every Day Smoker Alcohol Use: None Drug Use: None General Adult EDM: Chief Complaint: ABDOMINAL PAIN HPI: HPI: Patient is a 34 year old female who presents with complaint of left-sided abdominal pain that started earlier today. Patient states that pain is a 10 out of 10. She states that she has had nausea and vomiting and has a history of gastroparesis. Patient states that she has not been able to keep anything down. She states that she had hoped the pain would go away but it has progressively gotten worse. She states that nothing is improving her pain. [] Review of Systems: Review of Systems: Constitutional: Denies fever or chills. [] Respiratory: Denies cough or shortness of breath. [] Cardiovascular: Denies chest pain or edema. [] GI: Complains of abdominal pain with nausea and vomiting. Denies diarrhea. [] Neurologic: Denies headache, focal weakness or sensory changes. [] A full 10 point review of systems has been reviewed and is otherwise negative. Heart Score: Risk Factors: Risk Factors: DM, Current or recent (<one month) smoker, HTN, HLP, family history of CAD, obesity. Risk Scores: Score 0 - 3: 2.5% MACE over next 6 weeks - Discharge Home Score 4 - 6: 20.3% MACE over next 6 weeks - Admit for Clinical Observation Score 7 - 10: 72.7% MACE over next 6 weeks - Early Invasive Strategies Current Medications: Current Medications Medications (Trade) Dose Ordered Sig/[facility] Start Time Stop Time Status Last Admin Dose Admin Diphenhydramine HCl (Benadryl) 25 mg 1X ONCE 01/10/20 00:00 01/10/20 00:08 DC 01/09/20 23:59 25 MG Fentanyl Citrate (Fentanyl 2ml Vial) 50 mcg 1X ONCE 01/10/20 00:00 01/10/20 00:08 DC 01/10/20 00:03 50 MCG Hydralazine HCl (Apresoline Inj) 10 mg 1X ONCE 01/09/20 23:15 01/09/20 23:17 DC Metoclopramide HCl (Reglan Vial) 10 mg 1X ONCE 01/10/20 00:00 01/10/20 00:08 DC 01/10/20 00:02 10 MG Allergies: Allergies: Allergies Coded Allergies Type Severity Reaction Last Updated Verified ondansetron Allergy Severe edema 07/12/19 Yes ketorolac Allergy Intermediate hives 07/12/19 Yes morphine Allergy Intermediate hives 07/12/19 Yes Physical Exam: PE: Constitutional: Well developed, well nourished, no acute distress, non-toxic appearance. [] HENT: Normocephalic, atraumatic, bilateral external ears normal, oropharynx moist, no oral exudates, nose normal. [] Eyes: PERRLA, EOMI, conjunctiva normal, no discharge. [] Neck: Normal range of motion, no tenderness, supple, no stridor. [] Cardiovascular: Regular rate and rhythm [] Lungs & Thorax: Bilateral breath sounds clear to auscultation [] Abdomen: Bowel sounds normal, soft, with moderate reported tenderness. [] Skin: Warm, dry, no erythema, no rash. [] Extremities: No tenderness, no cyanosis, no clubbing, ROM intact, no edema. [] Neurologic: Alert and oriented X 3, no focal deficits noted. [] Current Patient Data: Vital Signs: Vital Signs Date Time Temp Pulse Resp B/P (MAP) Pulse Ox O2 Delivery O2 Flow Rate FiO2 01/10/20 00:03 22 100 Room Air EKG: EKG: [] Radiology/Procedures: Radiology/Procedures: [] Impression: PROCEDURE: CT ABDOMEN PELVIS WO CONTRAST Abdominal and Pelvis CT, Without Contrast: History: Left-sided flank pain Comparison: October 14, 2019. Procedure: Axial images are obtained of the abdomen and pelvis, without IV or oral contrast. Oral Contrast: No Findings: Evaluation of solid organs is limited without contrast. There is been prior cholecystectomy. Liver: Normal. Spleen: Normal. Pancreas: Normal. Adrenal Glands: 2 cm adrenal adenoma on the left was seen previously and is incidental. Kidneys: Normal. There is no free air or free fluid. There is no lymphadenopathy. The urinary bladder has mild wall thickening which was seen previously and is likely hypertrophy. There is no pericolonic inflammation identified. Impression: No acute findings. End impression PQRS Compliance Statement: One or more of the following individualized dose reduction techniques were utilized for this examination: 1. Automated exposure control 2. Adjustment of the mA and/or kV according to patient size 3. Use of iterative reconstruction technique Electronically signed by: Denton Esteban III, MD (01/10/2020 1:00 AM) [id number] DICTATED and SIGNED BY: DENTON ESTEBAN III, MD DATE: 01/10/200 Course & Med Decision Making: Course & Med Decision Making Pertinent Labs and Imaging studies reviewed. (See chart for details) [] Dragon Disclaimer: Dragon Disclaimer: This electronic medical record was generated, in whole or in part, using a voice recognition dictation system. Departure Departure Impression: Primary Impression: Abdominal pain Qualified Codes: R10.9 - Unspecified abdominal pain Additional Impressions: Nausea & vomiting Qualified Codes: R11.2 - Nausea with vomiting, unspecified Hypertension Qualified Codes: I10 - Essential (primary) hypertension Disposition: 01 HOME, SELF-CARE Condition: STABLE Referrals: YASMANY CHISHOLM (PCP) Patient Instructions: Abdominal Migraine, Hypertension, Nausea and Vomiting Scripts Metoclopramide Hcl (REGLAN) 10 Mg Tablet 1 TAB PO QID PRN for NAUSEA/VOMITING for 5 Days, #20 TAB 0 Refills before food and bedtime Prov: ARABELLA العلي Jr. DO 01/10/20 ARABELLA العلي Jr. DO January 10, 2020 00:24
[2020-01-10 00:29] LABS: CLARITY,URINE CLEAR; COLOR,URINE YELLOW; SQUAMOUS EPITHELIAL CELL,UR FEW /LPF
[2020-01-10 00:30] LABS: ALBUMIN 4.1 g/dL (3.4-5.0); TOTAL BILIRUBIN 0.5 mg/dL (0.2-1.0); TOTAL PROTEIN 8.3 g/dL (6.4-8.2)
[2020-01-10 00:31] LABS: AMORPHOUS SEDIMENT,UR PRESENT /HPF; BACTERIA,URINE 0 /HPF (0-FEW); BILIRUBIN,URINE NEGATIVE (NEG); NITRITE,URINE NEGATIVE (NEG); PH,URINE 8.5 (<5.0-8.0); PROTEIN,URINE 300 mg/dL (NEG-TRACE); UROBILINOGEN,URINE 0.2 mg/dL (0.2 mg/dL)
[2020-01-10 00:48] LABS: % LYMPHS 16 % (24-48); % MONOS 1 % (0-10); % SEGS 83 % (35-66); PLT ESTIMATE ADEQUATE (ADEQUATE); TOXIC GRANULATION SLIGHT
[2020-01-10] MEDS ORDERED: cloNIDine HCL 0.1 MG TABLET PO ONE (01:00)
[2020-01-10 01:01] VITALS: BP 146/95
--- NOTE | 2020-01-10 01:02 | RAD ---
Abdominal and Pelvis CT, Without Contrast: History: Left-sided flank pain Comparison: October 14, 2019. Procedure: Axial images are obtained of the abdomen and pelvis, without IV or oral contrast. Oral Contrast: No Findings: Evaluation of solid organs is limited without contrast. There is been prior cholecystectomy. Liver: Normal. Spleen: Normal. Pancreas: Normal. Adrenal Glands: 2 cm adrenal adenoma on the left was seen previously and is incidental. Kidneys: Normal. There is no free air or free fluid. There is no lymphadenopathy. The urinary bladder has mild wall thickening which was seen previously and is likely hypertrophy. There is no pericolonic inflammation identified. Impression: No acute findings. End impression PQRS Compliance Statement: One or more of the following individualized dose reduction techniques were utilized for this examination: 1. Automated exposure control 2. Adjustment of the mA and/or kV according to patient size 3. Use of iterative reconstruction technique Electronically signed by: Jm Esteban III, MD (01/10/2020 1:00 AM) [id number]
[2020-01-10] MEDS ORDERED: METO10TA81 PO (01:23)
== END 2020-01-10 01:35 | disposition home or self-care (01) ==
LOC: ER 23:07
DX: R10.32 Left lower quadrant pain (principal); R11.2 Nausea with vomiting, unspecified; I10 Essential (primary) hypertension; E10.9 Type 1 diabetes mellitus without complications; N18.9 Chronic kidney disease, unspecified; F17.200 Nicotine dependence, unspecified, uncomplicated; Z90.49 Acquired absence of other specified parts of digestive tract
CPT/HCPCS: 36415; 74176; 80053; 81001; 81025; 83690; 85007; 85025; 96372; 99284; J1200; J2765; J3010

== ENCOUNTER 2020-02-05 17:06 | Emergency (ER) | payer OTHER ==
[~2020-02-05] VITALS: Ht 167.6 cm; Wt 59.0 kg
[~2020-02-05 17:06] MED LIST changes: +METO10TA81 PO
--- NOTE | 2020-02-05 17:26 | PHYS DOC ---
Past Medical History Past Medical History: Diabetes-Type I, Hypertension, Kidney Infection, Renal Failure, Other Additional Past Medical Histor: GASTROPERESIS Past Surgical History: Cholecystectomy, Tubal ligation Smoking Status: Current Every Day Smoker Alcohol Use: Occasionally Drug Use: None General Adult EDM: Chief Complaint: ABDOMINAL PAIN HPI: HPI: Patient is a 34 year old AA female who presents emergency department with complaints of right low back and flank pain that radiates to her right lower quadrant of her abdomen that began approximately 1500 this afternoon. Patient reports nausea and vomiting with the onset of the pain. Patient states she has vomited 4 or 5 times since 3:00 this afternoon. She denies any dysuria, hematuria, or increased urinary frequency. Patient denies any fever, hematemesis, diarrhea, cough, shortness of breath, chest pain, wheezing, or sore throat. She denies any known injury. She currently rates her pain a 10 out of 10 on the pain scale, she states that the pain is worse with palpation and movement. Patient denies any known injury. She denies radiation of any pain to her right leg or thigh. Patient states that she is currently on dialysis and is not scheduled for dialysis until tomorrow. Review of Systems: Review of Systems: Complete review of systems is negative unless otherwise documented in HPI. Heart Score: Risk Factors: Risk Factors: DM, Current or recent (<one month) smoker, HTN, HLP, family history of CAD, obesity. Risk Scores: Score 0 - 3: 2.5% MACE over next 6 weeks - Discharge Home Score 4 - 6: 20.3% MACE over next 6 weeks - Admit for Clinical Observation Score 7 - 10: 72.7% MACE over next 6 weeks - Early Invasive Strategies Allergies: Allergies: Allergies Coded Allergies Type Severity Reaction Last Updated Verified ondansetron Allergy Severe edema 07/12/19 Yes ketorolac Allergy Intermediate hives 07/12/19 Yes morphine Allergy Intermediate hives 07/12/19 Yes Physical Exam: PE: Constitutional: Well developed, well nourished, moderate distress, non-toxic appearance. [] HENT: Normocephalic, atraumatic, bilateral external ears normal, nose normal. [] Eyes: PERRLA, EOMI, conjunctiva normal, no discharge. [] Neck: Normal range of motion, no stridor. [] Cardiovascular:Heart rate regular rhythm, no murmur [] Lungs & Thorax: Bilateral breath sounds clear to auscultation, Respirations even and unlabored, no retractions, no respiratory distress, dialysis catheter present in right chest [] Abdomen: Bowel sounds normal, soft, diffuse right sided tenderness to palpation, no rebound tenderness, no guarding, no masses, no pulsatile masses. [] Skin: Warm, dry, no erythema, no rash. [] Back: No bony tenderness, no CVA tenderness, right lumbar paraspinal tenderness to palpation. [] Extremities: No cyanosis, ROM intact, no edema. [] Neurologic: Alert and oriented X 3, no focal deficits noted. [] Psychologic: Affect inconsolable, judgement normal, mood anxious EKG: EKG: [] Radiology/Procedures: Radiology/Procedures: PROCEDURE: ABDOMEN LTD Exam: Ultrasound abdomen limited Indication: Right-sided abdominal pain, right flank pain Technique: Real-time grayscale and color Doppler images of the right upper quadrant were obtained by the department logistics manager. Comparisons: None FINDINGS: Liver contour is normal. Hepatopedal flow noted within the portal vein. Gallbladder is absent. Common bile duct measures 4 mm in diameter. Right kidney measures 9.3 cm in length. No hydronephrosis. Visualized portions of aorta and IVC are unremarkable. IMPRESSION: 1. Normal sonographic appearance of the liver. 2. Gallbladder surgically absent. 3. No right-sided hydronephrosis. [] Course & Med Decision Making: Course & Med Decision Making Pertinent Labs and Imaging studies reviewed. (See chart for details) Patient is a 34-year-old female who presented to the emergency department complaining of right low back right flank and right lower quadrant abdominal pain with nausea and vomiting that began at 1500. CBC is unremarkable, CMP reveals chronic changes, no acute findings, UA is likely contaminated with 5-10 white blood cells but many squamous cells. The patient was given 2 doses of 50 mcg of fentanyl IV, 10 mg of Compazine IV, 12.5 mg of p.o. Phenergan, and 60 mg of IM Norflex. Ultrasound of her abdomen revealed no acute findings. Patient was noted to have elevated blood pressure in the emergency department however this is not abnormal for the patient as her blood pressure was in the same range during her previous visit less than a month ago. Patient took a warm shower while in the emergency department she reported feeling better after the orphenadrine, and the shower. Prescription was written for orphenadrine. Patient was encouraged to go to dialysis tomorrow as scheduled. Return to the ER if symptoms worsen. Patient verbalized an understanding of home care, medications, follow-up, and return to ED instructions and was in agreement with the plan of care. [] Dragon Disclaimer: Dragon Disclaimer: This electronic medical record was generated, in whole or in part, using a voice recognition dictation system. Departure Departure Impression: Primary Impression: Intractable low back pain Additional Impression: Vomiting Qualified Codes: R11.2 - Nausea with vomiting, unspecified Disposition: HOME, SELF-CARE Condition: STABLE Referrals: YASMANY CHISHOLM (PCP) Patient Instructions: Back Pain, Adult, [id number], Nausea and Vomiting, [id number] Additional Instructions: Continue taking home medications as prescribed for nausea. Fill prescription and take as directed for back pain. Apply heat or ice as needed for comfort. Resume dialysis tomorrow as planned. Return to the ER if symptoms worsen. Scripts Orphenadrine Citrate (ORPHENADRINE CITRATE) 100 Mg Tablet.er 1 TAB PO BID PRN for PAIN for 10 Days, #20 TAB 0 Refills Prov: BEENA DUNN NEONATAL NURSE 02/05/20 Justicifation of Admission Dx: Justifications for Admission: Justification of Admission Dx: N/A BEENA DUNN NEONATAL NURSE Feb 05, 2020 17:26
[2020-02-05] MEDS ORDERED: METOCLOPRAMIDE HCL 10 MG/2 ML VIAL. IVP ONE ×2 (17:30→22:00)
[2020-02-05] MEDS ORDERED: IV NORMAL SALINE 1000ML BAG 1,000 ML IV ONE (17:30)
[2020-02-05] MEDS ORDERED: fentaNYL PF VIAL 100 MCG/2 ML VIAL IV ONE ×2 (17:45→19:30)
[2020-02-05] MEDS ORDERED: PROCHLORPERAZINE 10 MG/2 ML VIAL. IV ONE (17:45)
[2020-02-05 18:31] LABS: BILIRUBIN,URINE NEGATIVE (NEG); CLARITY,URINE CLOUDY; COLOR,URINE YELLOW; NITRITE,URINE NEGATIVE (NEG); PH,URINE 5.5 (<5.0-8.0); PROTEIN,URINE >=300 mg/dL (NEG-TRACE); UROBILINOGEN,URINE 0.2 mg/dL (0.2 mg/dL)
[2020-02-05 18:53] LABS: BACTERIA,URINE FEW /HPF (0-FEW); RBC,URINE 0 /HPF (0-2); SQUAMOUS EPITHELIAL CELL,UR MANY /LPF
[2020-02-05 19:02] LABS: BASO # 0.1 x10^3/uL (0.0-0.2); BASO % 1 % (0-3); EOS # 0.1 x10^3/uL (0.0-0.7); EOS % 1 % (0-3); HEMATOCRIT 33.3 % (36.0-47.0); HEMOGLOBIN 11.3 g/dL (12.0-15.5); LYMPH # 1.2 x10^3/uL (1.0-4.8); LYMPH % 13 % (24-48); MEAN CORPUSCULAR HEMOGLOBIN 31 pg (25-35); MEAN CORPUSCULAR HGB CONC 34 g/dL (31-37); MEAN CORPUSCULAR VOLUME 91 fL (79-100); MONO # 0.7 x10^3/uL (0.0-1.1); MONO % 8 % (0-9); NEUT % 77 % (31-73); PLATELET COUNT 216 x10^3/uL (140-400); RED BLOOD COUNT 3.66 x10^6/uL (3.50-5.40); RED CELL DISTRIBUTION WIDTH 16.4 % (11.5-14.5); WHITE BLOOD COUNT 9.1 x10^3/uL (4.0-11.0)
[2020-02-05 19:16] LABS: CALCIUM 8.7 mg/dL (8.5-10.1); CREATININE 5.8 mg/dL (0.6-1.0); GFR 10.2; POTASSIUM 3.7 mmol/L (3.5-5.1)
[2020-02-05 19:21] LABS: ALBUMIN 3.7 g/dL (3.4-5.0); ALBUMIN/GLOBULIN RATIO 1.1 (1.0-1.7); TOTAL BILIRUBIN 0.3 mg/dL (0.2-1.0); TOTAL PROTEIN 7.2 g/dL (6.4-8.2)
--- NOTE | 2020-02-05 20:26 | RAD ---
Exam: Ultrasound abdomen limited Indication: Right-sided abdominal pain, right flank pain Technique: Real-time grayscale and color Doppler images of the right upper quadrant were obtained by the department swimming pool cleaner. Comparisons: None FINDINGS: Liver contour is normal. Hepatopedal flow noted within the portal vein. Gallbladder is absent. Common bile duct measures 4 mm in diameter. Right kidney measures 9.3 cm in length. No hydronephrosis. Visualized portions of aorta and IVC are unremarkable. IMPRESSION: 1. Normal sonographic appearance of the liver. 2. Gallbladder surgically absent. 3. No right-sided hydronephrosis. Electronically signed by: Debbie Harvey MD (02/05/2020 8:23 PM) [id number]
[2020-02-05 21:30] VITALS: BP 220/103
[2020-02-05] MEDS ORDERED: ORPHENADRINE CITRATE 60 MG/2 ML VIAL. IM ONE (21:45)
[2020-02-05] MEDS ORDERED: ORPHENADRINE CITRATE 60 MG/2 ML VIAL. IV ONE (21:45)
[2020-02-05] MEDS ORDERED: ORPH100T PO (21:58)
[2020-02-05] MEDS ORDERED: PROMETHAZINE 12.5 MG TABLET. PO ONE (22:00)
== END 2020-02-05 22:22 | disposition home or self-care (01) ==
LOC: ER 17:06
DX: M54.5 Low back pain (principal); R11.2 Nausea with vomiting, unspecified; R10.31 Right lower quadrant pain; E10.22 Type 1 diabetes mellitus with diabetic chronic kidney disease; I12.9 Hypertensive chronic kidney disease with stage 1 through stage 4 chronic kidney disease, or unspecified chronic kidney disease; N18.9 Chronic kidney disease, unspecified; E10.43 Type 1 diabetes mellitus with diabetic autonomic (poly)neuropathy; K31.84 Gastroparesis; Z99.2 Dependence on renal dialysis; Z98.51 Tubal ligation status; Z90.49 Acquired absence of other specified parts of digestive tract; Z88.5 Allergy status to narcotic agent; Z88.6 Allergy status to analgesic agent
CPT/HCPCS: 36415; 76705; 80053; 81001; 81025; 85025; 87086; 96361; 96372; 96374; 96375; 96376; 99285; J0780; J2360; J3010; J7030; Q0169

== ENCOUNTER 2020-02-20 05:53 | Emergency (ER) | payer OTHER ==
[~2020-02-20] VITALS: Ht 167.6 cm; Wt 59.0 kg
[~2020-02-20 05:53] MED LIST changes: +ORPH100T PO
[2020-02-20 06:34] LABS: BASO # 0.1 x10^3/uL (0.0-0.2); BASO % 1 % (0-3); EOS % 0 % (0-3); HEMOGLOBIN 14.6 g/dL (12.0-15.5); LYMPH % 11 % (24-48); MEAN CORPUSCULAR HEMOGLOBIN 30 pg (25-35); MEAN CORPUSCULAR HGB CONC 33 g/dL (31-37); MEAN CORPUSCULAR VOLUME 91 fL (79-100); MONO # 0.3 x10^3/uL (0.0-1.1); MONO % 3 % (0-9); NEUT # 7.3 x10^3/uL (1.8-7.7); NEUT % 85 % (31-73); PLATELET COUNT 355 x10^3/uL (140-400); RED BLOOD COUNT 4.83 x10^6/uL (3.50-5.40); RED CELL DISTRIBUTION WIDTH 17.8 % (11.5-14.5); WHITE BLOOD COUNT 8.7 x10^3/uL (4.0-11.0)
[2020-02-20 06:40] LABS: CALCIUM 10.5 mg/dL (8.5-10.1); CREATININE 4.9 mg/dL (0.6-1.0); GFR 12.4; POTASSIUM 4.1 mmol/L (3.5-5.1)
[2020-02-20 06:45] LABS: ALBUMIN 4.5 g/dL (3.4-5.0); ALBUMIN/GLOBULIN RATIO 0.9 (1.0-1.7); TOTAL BILIRUBIN 0.5 mg/dL (0.2-1.0); TOTAL PROTEIN 9.5 g/dL (6.4-8.2)
--- NOTE | 2020-02-20 06:57 | RAD ---
EXAM: ABDOMEN 2 VIEWS WITH PA CHEST history: Pain, vomiting TECHNIQUE: An upright view the chest and upright and supine views of the abdomen COMPARISON: 07/18/2020. FINDINGS: The cardiomediastinal silhouette grossly appears unremarkable. Dialysis catheter in place. The lungs are clear. The bowel gas pattern appears unremarkable. Feces and gas identified in the colon. Impression: 1. No acute cardiopulmonary findings. 2. Unremarkable gas pattern. Electronically signed by: Chidi Otero MD (02/20/2020 6:55 AM) [id number]
[2020-02-20] MEDS ORDERED: HYDROmorphone 2 MG/ML VIAL IV ONE (07:00)
[2020-02-20] MEDS ORDERED: FAMOTIDINE 20 MG/2 ML VIAL IVP ONE (07:00)
[2020-02-20] MEDS ORDERED: DICYCLOMINE 20 MG/2 ML VIAL. IM ONE (07:00)
[2020-02-20] MEDS ORDERED: METOCLOPRAMIDE HCL 10 MG/2 ML VIAL. IVP ONE (07:00)
[2020-02-20 07:16] VITALS: BP 143/100
--- NOTE | 2020-02-20 07:19 | PHYS DOC ---
Past Medical History Past Medical History: Diabetes-Type I, Hypertension, Kidney Infection, Renal Failure, Other Additional Past Medical Histor: GASTROPERESIS Past Surgical History: Cholecystectomy, Tubal ligation, Other Additional Past Surgical Histo: FISTULA LEFT ARM, SHUNT RIGHT CHEST Smoking Status: Current Every Day Smoker Alcohol Use: Occasionally Drug Use: None General Adult EDM: Chief Complaint: ABDOMINAL PAIN HPI: HPI: Patient is a 34 year old female presenting to the ED with a chief complaint of abdominal pain, nausea and vomiting. Patient states that she is a history of gastroparesis. Patient states that she is on dialysis and is scheduled for tomorrow. Patient states that she had a complete run yesterday. Patient states that the pain and the nausea and vomiting started at 3 PM yesterday evening. Patient denies fever, chills, diarrhea, chest pain, shortness of breath. Patient describes that the pain is diffuse in her abdomen. Review of Systems: Review of Systems: Constitutional: Denies fever or chills HENT: Denies nasal congestion, sore throat, sinus tenderness Respiratory: Denies cough or shortness of breath Cardiovascular: Denies CP GI: Complains of abdominal pain, nausea, vomiting : Denies dysuria or hematuria Musculoskeletal: Denies back pain or joint pain Skin: Denies rash or skin lesions Neurologic: Denies headache, focal weakness or sensory changes Complete systems were reviewed and found to be within normal limits, except as documented in this note. Heart Score: Risk Factors: Risk Factors: DM, Current or recent (<one month) smoker, HTN, HLP, family history of CAD, obesity. Risk Scores: Score 0 - 3: 2.5% MACE over next 6 weeks - Discharge Home Score 4 - 6: 20.3% MACE over next 6 weeks - Admit for Clinical Observation Score 7 - 10: 72.7% MACE over next 6 weeks - Early Invasive Strategies Current Medications: Current Medications Medications (Trade) Dose Ordered Sig/[facility] Start Time Stop Time Status Last Admin Dose Admin Dicyclomine HCl (Bentyl) 20 mg 1X ONCE 02/20/20 07:00 02/20/20 07:01 DC 02/20/20 06:30 20 MG Famotidine (Pepcid Vial) 20 mg 1X ONCE 02/20/20 07:00 02/20/20 07:01 DC 02/20/20 06:30 20 MG Hydromorphone HCl (Dilaudid) 1 mg 1X ONCE 02/20/20 07:00 02/20/20 07:01 DC 02/20/20 06:31 1 MG Metoclopramide HCl (Reglan Vial) 5 mg 1X ONCE 02/20/20 07:00 02/20/20 07:01 DC 02/20/20 06:30 5 MG Allergies: Allergies: Allergies Coded Allergies Type Severity Reaction Last Updated Verified ondansetron Allergy Severe edema 07/12/19 Yes ketorolac Allergy Intermediate hives 07/12/19 Yes morphine Allergy Intermediate hives 07/12/19 Yes Physical Exam: PE: Constitutional: Well developed, well nourished, no acute distress, non-toxic appearance. [] HENT: Normocephalic, atraumatic Eyes: EOMI Neck: Normal range of motion, Supple Cardiovascular:Heart rate regular rhythm Lungs & Thorax: Bilateral breath sounds clear to auscultation [] Abdomen: Diffuse abdominal tenderness. No focal abdominal tenderness Extremities: No tenderness, ROM intact Neurologic: Alert and oriented X 3 Current Patient Data: Labs: Laboratory Tests Test 02/20/20 06:14 White Blood Count 8.7 x10^3/uL (4.0-11.0) Red Blood Count 4.83 x10^6/uL (3.50-5.40) Hemoglobin 14.6 g/dL (12.0-15.5) Hematocrit 44.0 % (36.0-47.0) Mean Corpuscular Volume 91 fL (79-100) Mean Corpuscular Hemoglobin 30 pg (25-35) Mean Corpuscular Hemoglobin Concent 33 g/dL (31-37) Red Cell Distribution Width 17.8 % (11.5-14.5) H Platelet Count 355 x10^3/uL (140-400) Neutrophils (%) (Auto) 85 % (31-73) H Lymphocytes (%) (Auto) 11 % (24-48) L Monocytes (%) (Auto) 3 % (0-9) Eosinophils (%) (Auto) 0 % (0-3) Basophils (%) (Auto) 1 % (0-3) Neutrophils # (Auto) 7.3 x10^3/uL (1.8-7.7) Lymphocytes # (Auto) 1.0 x10^3/uL (1.0-4.8) Monocytes # (Auto) 0.3 x10^3/uL (0.0-1.1) Eosinophils # (Auto) 0.0 x10^3/uL (0.0-0.7) Basophils # (Auto) 0.1 x10^3/uL (0.0-0.2) Sodium Level 139 mmol/L (136-145) Potassium Level 4.1 mmol/L (3.5-5.1) Chloride Level 98 mmol/L (98-107) Carbon Dioxide Level 29 mmol/L (21-32) Anion Gap 12 (6-14) Blood Urea Nitrogen 20 mg/dL (7-20) Creatinine 4.9 mg/dL (0.6-1.0) H Estimated GFR (Cockcroft-Gault) 12.4 BUN/Creatinine Ratio 4 (6-20) L Glucose Level 288 mg/dL (70-99) H Calcium Level 10.5 mg/dL (8.5-10.1) H Total Bilirubin 0.5 mg/dL (0.2-1.0) Aspartate Amino Transferase (AST) 15 U/L (15-37) Alanine Aminotransferase (ALT) 14 U/L (14-59) Alkaline Phosphatase 156 U/L (46-116) H Total Protein 9.5 g/dL (6.4-8.2) H Albumin 4.5 g/dL (3.4-5.0) Albumin/Globulin Ratio 0.9 (1.0-1.7) L Lipase 344 U/L (73-393) Laboratory Tests 02/20/20 06:14 Laboratory Tests 02/20/20 06:14 Vital Signs: Vital Signs Date Time Temp Pulse Resp B/P (MAP) Pulse Ox O2 Delivery O2 Flow Rate FiO2 02/20/20 06:31 99 Room Air 02/20/20 05:53 98.9 89 22 189/138 (155) 98.9 EKG: EKG: [] Radiology/Procedures: Radiology/Procedures: [] Impression: Acute abdominal series shows no acute cardiopulmonary process. No bowel obstruction seen. Course & Med Decision Making: Course & Med Decision Making Pertinent Labs and Imaging studies reviewed. (See chart for details) Ordered labs, acute abdominal series, Dilaudid milligram IV, Reglan 10 mg IV. Labs are stable. Creatinine is elevated showing chronic kidney disease. Acute abdominal series does not show any acute process. Patient states that she is feeling better on recheck. Patient states that she will follow-up with her PCP for outpatient prescription. Discussed results and plan of care with patient. Patient is instructed to follow up with PCP in one to 2 days. Appropriate discharge instructions given to patient to return to the ED or to seek immediate medical evaluation. Patient is instructed to return to the ED if symptoms worsen or if any concerns. Dragon Disclaimer: Dragon Disclaimer: This electronic medical record was generated, in whole or in part, using a voice recognition dictation system. Departure Departure Impression: Primary Impression: Nausea & vomiting Additional Impressions: Abdominal pain Gastroparesis Disposition: HOME, SELF-CARE Condition: IMPROVED Referrals: YASMANY CHISHOLM (PCP) Patient Instructions: Abdominal Pain, Gastroparesis, Nausea and Vomiting Additional Instructions: Discussed results and plan of care with patient. Patient is instructed to follow up with PCP in one to 2 days. Appropriate discharge instructions given to patient to return to the ED or to seek immediate medical evaluation. Patient is instructed to return to the ED if symptoms worsen or if any concerns. Justicifation of Admission Dx: Justifications for Admission: Justification of Admission Dx: ANGEL Vergara DO Feb 20, 2020 07:19
== END 2020-02-20 07:30 | disposition home or self-care (01) ==
LOC: ER 05:53
DX: R11.2 Nausea with vomiting, unspecified (principal); R10.84 Generalized abdominal pain; E10.43 Type 1 diabetes mellitus with diabetic autonomic (poly)neuropathy; K31.84 Gastroparesis; E10.22 Type 1 diabetes mellitus with diabetic chronic kidney disease; I12.9 Hypertensive chronic kidney disease with stage 1 through stage 4 chronic kidney disease, or unspecified chronic kidney disease; N18.9 Chronic kidney disease, unspecified; Z99.2 Dependence on renal dialysis; F17.200 Nicotine dependence, unspecified, uncomplicated; Z90.49 Acquired absence of other specified parts of digestive tract; Z98.51 Tubal ligation status; Z88.5 Allergy status to narcotic agent; Z88.6 Allergy status to analgesic agent
CPT/HCPCS: 36415; 74022; 80053; 83690; 85025; 96372; 96374; 96375; 99284; J0500; J1170; J2765; J3490

== ENCOUNTER 2020-03-10 07:14 | Inpatient (IN) | payer OTHER ==
[~2020-03-10] VITALS: Ht 167.6 cm; Wt 64.2 kg
[2020-03-10] MEDS ORDERED: METOCLOPRAMIDE HCL 10 MG/2 ML VIAL. IVP ONE (07:45)
[2020-03-10] MEDS ORDERED: FAMOTIDINE 20 MG/2 ML VIAL IVP ONE (07:45)
[2020-03-10] MEDS ORDERED: fentaNYL PF VIAL 100 MCG/2 ML VIAL IVP ONE ×2 (07:45→20:15)
--- NOTE | 2020-03-10 07:47 | PHYS DOC ---
Past Medical History Past Medical History: Diabetes-Type I, Hypertension, Kidney Infection, Pa ncreatitis, Renal Failure, Other Additional Past Medical Histor: GASTROPERESIS, DIALYSIS Past Surgical History: Cholecystectomy, Tubal ligation, Other Additional Past Surgical Histo: FISTULA LEFT ARM, SHUNT RIGHT CHEST Smoking Status: Current Every Day Smoker Alcohol Use: Occasionally Drug Use: None General Adult EDM: Chief Complaint: ABDOMINAL PAIN HPI: HPI: Patient is a 34 year old female presents with 9-day history of worsening abdominal pain. Patient had previously been admitted over at until 02/29/2020 with report of pancreatitis. Patient also with pmh of ESRD on HD, DM, and gastroparesis. Patient reports she is a Tuesday//Tuesday dialysis patient and last received dialysis on 03/01/2020. At that time patient reports pain started. Patient reports she has been unable to go to dialysis secondary to this pain. Reports she did not want to come back to the hospital and therefore tried to control the pain at home. Patient does report associated nausea and vomiting. Denies alcohol use. Denies fever or chills. Denies known exposure to COVID-19. Review of Systems: Review of Systems: Constitutional: Denies fever or chills; reports malaise Eyes: Denies redness or eye pain HENT: Denies nasal congestion or sore throat Respiratory: Denies cough or shortness of breath Cardiovascular: Denies chest pain or palpitations GI: Reports abdominal pain, nausea, and vomiting : Denies dysuria or hematuria Musculoskeletal: Denies back pain or joint pain Integument: Denies rash or skin lesions Neurologic: Denies headache, focal weakness or sensory changes Complete systems were reviewed and found to be within normal limits, except as documented in this note. Current Medications: Current Medications Medications (Trade) Dose Ordered Sig/Brown Start Time Stop Time Status Last Admin Dose Admin Famotidine (Pepcid Vial) 20 mg 1X ONCE 03/10/20 07:45 03/10/20 07:46 UNV Fentanyl Citrate (Fentanyl 2ml Vial) 50 mcg 1X ONCE 03/10/20 07:45 03/10/20 07:46 UNV Metoclopramide HCl (Reglan Vial) 10 mg 1X ONCE 03/10/20 07:45 03/10/20 07:46 UNV Allergies: Allergies: Allergies Coded Allergies Type Severity Reaction Last Updated Verified ondansetron Allergy Severe edema 07/12/19 Yes ketorolac Allergy Intermediate hives 07/12/19 Yes morphine Allergy Intermediate hives 07/12/19 Yes Physical Exam: PE: Constitutional: Well developed, well nourished, moderate distress secondary to pain HENT: Normocephalic, atraumatic Eyes: Conjunctiva normal, no discharge Neck: Normal range of motion, no tenderness, supple Lungs & Thorax: No respiratory distress, equal chest rise and fall, right chest wall hemodialysis catheter Abdomen: Soft, diffuse tenderness Skin: Warm, dry, no erythema, no rash Extremities: No tenderness, ROM intact, no edema, left AV fistula to upper arm noted with good thrill Neurologic: Alert and oriented X 3, no focal deficits noted Psychologic: Affect normal, judgment normal Current Patient Data: Vital Signs: Vital Signs Date Time Temp Pulse Resp B/P (MAP) Pulse Ox O2 Delivery O2 Flow Rate FiO2 03/10/20 07:14 98.2 96 22 300/300 (300) 98 Room Air 98.2 EKG: EKG: @1013 NSR at 80bpm, NO ST elevation, no hyperacute t waves, QRS 78ms, QT/QTc 358/416ms Radiology/Procedures: Radiology/Procedures: PROCEDURE: CT ABDOMEN PELVIS WO CONTRAST Examination: CT ABDOMEN PELVIS WO CONTRAST History: Reason: diffuse abdominal pain, hx of pancreatitis / Spl. Instructions: / History: Comparison/Correlation: 12/31/2019 CT abdomen and pelvis without contrast Findings: Axial images of the abdomen and pelvis were obtained without contrast. Sagittal and coronal reformatted images were provided. Linear atelectasis or scarring right middle lobe is minimal. Cholecystectomy noted. Liver, spleen, right adrenal gland, and kidneys are unremarkable. Left adrenal gland adenoma again is seen measuring up to 1.9 cm diameter. No extraluminal gas or obstruction. No enlarged abdominal or pelvic lymph nodes. Minimal right flank edema or ascites is present. Small amount of pelvic free fluid is present with Hounsfield units of 21. Pancreas appears grossly unremarkable but evaluation may be limited due to lack of IV and oral contrast in the mid mesenteric fat. Fluid distends the stomach. Multiple distended small bowel loops are present involving the upper abdomen and mid abdomen. Transition of small bowel diameter within the right lower quadrant is suspected. Appendix is normal. Uterus is unremarkable. Urinary bladder is mostly decompressed with associated circumferential wall thickening. Bony structures are unremarkable. Impression: Distended small bowel loops with transition suggested within the right lower quadrant. Findings may represent ileus or small bowel obstruction. Pelvic free fluid is present and of slightly higher density. While this may be physiologic, more significant processes as excluded. No definite findings involving the pancreas although evaluation may be limited. PQRS Compliance Statement: One or more of the following individualized dose reduction techniques were utilized for this examination: 1. Automated exposure control 2. Adjustment of the mA and/or kV according to patient size 3. Use of iterative reconstruction technique Electronically signed by: Alex Shahid MD (03/10/2020 8:31 AM) [id number] Course & Med Decision Making: Course & Med Decision Making Pertinent Labs and Imaging studies reviewed. (See chart for details) Patient presents with report of acute on chronic abdominal pain. Reports history of pancreatitis, DM, gastroparesis, and ESRD on HD T//Tue. Denies alcohol use. Patient previously was admitted for similar at until 02/29/2020. Patient is a dialysis patient and reportedly last received dialysis on 03/01/2020. Labs obtained and posted to chart. Potassium WNL. Pain/nausea addressed. Patient with poor vascular access. licensed staff mft unable to obtain IV access on multiple attempts. Blood pressure significantly elevated. Without IV access attempted to provide Clonidine PO. Patient unable to take as she had active vomiting again. Clonidine patch therefore provided. CT abdomen/pelvis with findings suggestive of ileus vs SBO. Patient requiring admission for further evaluation and treatment. Discussed with Dr. Arndt (hospitalist) who is in agreement with admission. Discussed case with Dr. Smith (nephrology) regarding. Dr. Smith recommends if unable to obtain peripheral IV access, would request central line placement. Discussed findings and plan with patient, who acknowledges understanding and agreement. Prior to transfer to floor, a bedside ultrasound was utilized with successful placement of peripheral IV with 20g to right AC. Rebecca Disclaimer: Rebecca Disclaimer: This electronic medical record was generated, in whole or in part, using a voice recognition dictation system. Departure Departure Impression: Primary Impression: Small bowel obstruction Additional Impressions: ESRD (end stage renal disease) on dialysis Hypertensive urgency Disposition: ADMITTED INPATIENT Admitting Physician: KIRBY (Hair) Condition: STABLE Referrals: OPOLEYASMANY (PCP) Justicifation of Admission Dx: Justifications for Admission: Justification of Admission Dx: Yes Comments: SBO, Hypertensive Urgency, ESRD on HD Additional Procedures Progress Peripheral IV access under Bedside ultrasound guidance: Patient with poor vascular access. Hx of failed attempted by licensed staff mft. Unable to place to left arm due to AV fistula. Verbal consent obtained. Time out performed. Hand hygiene utilized. Visualization of anechoic oval, compressible structure to right AC. Wound cleaned with ChloraPrep. Successful placement of 20g angiocath under ultrasound guidance. IV cath secured in place with Tegaderm and clear tape. Good flush and drawback noted. Patient tolerated procedure well and without difficulty. Critical Care Time Critical care time was 30 minutes which includes time at bedside, spent in discussion of patient's care with specialists and/or family members, with interpretation of laboratory and/or radiological studies and is exclusive of procedures. LYLY ART DO Mar 10, 2020 07:47
[2020-03-10] MEDS ORDERED: METOCLOPRAMIDE HCL 10 MG/2 ML VIAL. IM ONE (08:00)
[2020-03-10] MEDS ORDERED: HYOSCYAMINE 0.125 MG TAB.RAPDIS PO ONE (08:00)
[2020-03-10] MEDS ORDERED: FAMOTIDINE 20 MG TABLET. PO ONE (08:00)
[2020-03-10] MEDS ORDERED: fentaNYL PF VIAL 100 MCG/2 ML VIAL IM ONE ×2 (08:00→12:30)
[2020-03-10 08:20] LABS: BASO # 0.1 x10^3/uL (0.0-0.2); BASO % 1 % (0-3); EOS # 0.2 x10^3/uL (0.0-0.7); EOS % 2 % (0-3); HEMATOCRIT 36.1 % (36.0-47.0); HEMOGLOBIN 12.1 g/dL (12.0-15.5); LYMPH # 1.8 x10^3/uL (1.0-4.8); LYMPH % 24 % (24-48); MEAN CORPUSCULAR HEMOGLOBIN 30 pg (25-35); MEAN CORPUSCULAR HGB CONC 34 g/dL (31-37); MEAN CORPUSCULAR VOLUME 90 fL (79-100); MONO # 0.3 x10^3/uL (0.0-1.1); MONO % 4 % (0-9); NEUT # 5.3 x10^3/uL (1.8-7.7); NEUT % 69 % (31-73); PLATELET COUNT 313 x10^3/uL (140-400); RED CELL DISTRIBUTION WIDTH 16.5 % (11.5-14.5); WHITE BLOOD COUNT 7.7 x10^3/uL (4.0-11.0)
[2020-03-10 08:21] LABS: CALCIUM 8.9 mg/dL (8.5-10.1); CREATININE 4.4 mg/dL (0.6-1.0); GFR 14.1; POTASSIUM 4.1 mmol/L (3.5-5.1)
[2020-03-10 08:26] LABS: ALBUMIN 3.3 g/dL (3.4-5.0); ALBUMIN/GLOBULIN RATIO 0.8 (1.0-1.7); MAGNESIUM 1.9 mg/dL (1.8-2.4); TOTAL BILIRUBIN 0.2 mg/dL (0.2-1.0); TOTAL PROTEIN 7.4 g/dL (6.4-8.2)
[2020-03-10 08:27] LABS: PREG TEST PT QUAL NEGATIVE (NEG)
[2020-03-10 08:30] LABS: PROTHROMBIN TIME PATIENT 13.3 SEC (11.7-14.0)
[2020-03-10] MEDS ORDERED: cloNIDine HCL 0.1 MG TABLET PO ONE (08:30)
--- NOTE | 2020-03-10 08:34 | RAD ---
Examination: CT ABDOMEN PELVIS WO CONTRAST History: Reason: diffuse abdominal pain, hx of pancreatitis / Spl. Instructions: / History: Comparison/Correlation: 12/31/2019 CT abdomen and pelvis without contrast Findings: Axial images of the abdomen and pelvis were obtained without contrast. Sagittal and coronal reformatted images were provided. Linear atelectasis or scarring right middle lobe is minimal. Cholecystectomy noted. Liver, spleen, right adrenal gland, and kidneys are unremarkable. Left adrenal gland adenoma again is seen measuring up to 1.9 cm diameter. No extraluminal gas or obstruction. No enlarged abdominal or pelvic lymph nodes. Minimal right flank edema or ascites is present. Small amount of pelvic free fluid is present with Hounsfield units of 21. Pancreas appears grossly unremarkable but evaluation may be limited due to lack of IV and oral contrast in the mid mesenteric fat. Fluid distends the stomach. Multiple distended small bowel loops are present involving the upper abdomen and mid abdomen. Transition of small bowel diameter within the right lower quadrant is suspected. Appendix is normal. Uterus is unremarkable. Urinary bladder is mostly decompressed with associated circumferential wall thickening. Bony structures are unremarkable. Impression: Distended small bowel loops with transition suggested within the right lower quadrant. Findings may represent ileus or small bowel obstruction. Pelvic free fluid is present and of slightly higher density. While this may be physiologic, more significant processes as excluded. No definite findings involving the pancreas although evaluation may be limited. PQRS Compliance Statement: One or more of the following individualized dose reduction techniques were utilized for this examination: 1. Automated exposure control 2. Adjustment of the mA and/or kV according to patient size 3. Use of iterative reconstruction technique Electronically signed by: Alex Shahid MD (03/10/2020 8:31 AM) [id number]
[2020-03-10] MEDS ORDERED: cloNIDine TTS-2 1 PATCH PATCH TD ONE (09:00)
[2020-03-10] MEDS ORDERED: PROCHLORPERAZINE 10 MG/2 ML VIAL. IM ONE (09:00)
[2020-03-10] MEDS ORDERED: HYDROmorphone 2 MG/ML VIAL IM ONE (09:00)
--- NOTE | 2020-03-10 09:35 | PDOC1 ---
History and Physical Date of Admission Date of Admission DATE: 03/10/20 TIME: 09:33 Identification/Chief Complaint Chief Complaint SSEN IN ER WITH SBO 34 year old female presents with 9-day history of worsening abdominal pain. admitted [facility] until 02/29/2020 with report of pancreatitis. hx ESRD on HD, DM, and gastroparesis. last dialysis on 03/01/2020. then, patient reports pain started. // has been unable to go to dialysis secondary to this pain. Reports she did not want to come back to the hospital and therefore tried to control the pain at home. report associated nausea and vomiting. denies intake of poorly cooked food no alcohol use. Denies fever or chills or cough . Denies known exposure to COVID-19. Past Medical History Past Medical History Past Medical History Past Medical History: Diabetes-Type I, Hypertension, Kidney Infection, Pancreatitis, Renal Failure, Other Additional Past Medical Histor: GASTROPERESIS, DIALYSIS Past Surgical History: Cholecystectomy, Tubal ligation, Other Additional Past Surgical Histo: FISTULA LEFT ARM, SHUNT RIGHT CHEST Smoking Status: Current Every Day Smoker Alcohol Use: Occasionally Drug Use: None fhx HTN Cardiovascular: HTN GI: Other Psych: Addictions Renal/: Chronic renal insuff, Chronic renal failure Endocrine: Diabetes, Hyperparathyroidism Past Surgical History Past Surgical History: Cholecystectomy, No pertinent history Family History Family History: Hypertension Social History Smoke: <1 pack per day ALCOHOL: none Drugs: Marijuana Current Problem List Problem List Problems Medical Problems: (1) Abdominal pain Status: Acute (2) Chronic abdominal pain Status: Acute (3) ESRD (end stage renal disease) on dialysis Status: Acute (4) Hypertensive urgency Status: Acute (5) Small bowel obstruction Status: Acute Current Medications Current Medications Current Medications Fentanyl Citrate (Fentanyl 2ml Vial) 50 mcg 1X ONCE IVP ; Start 03/10/20 at 07:45; Stop 03/10/20 at 07:40; Status DC Famotidine (Pepcid Vial) 20 mg 1X ONCE IVP ; Start 03/10/20 at 07:45; Stop 03/10/20 at 07:40; Status DC Metoclopramide HCl (Reglan Vial) 10 mg 1X ONCE IVP ; Start 03/10/20 at 07:45; Stop 03/10/20 at 07:40; Status DC Hyoscyamine (Anaspaz) 0.125 mg 1X ONCE PO Last administered on 03/10/20at 07:57; Start 03/10/20 at 08:00; Stop 03/10/20 at 08:01; Status DC Fentanyl Citrate (Fentanyl 2ml Vial) 75 mcg 1X ONCE IM Last administered on 03/10/20at 07:57; Start 03/10/20 at 08:00; Stop 03/10/20 at 08:01; Status DC Metoclopramide HCl (Reglan Vial) 10 mg 1X ONCE IM Last administered on 03/10/20at 07:56; Start 03/10/20 at 08:00; Stop 03/10/20 at 08:01; Status DC Famotidine (Pepcid) 20 mg 1X ONCE PO Last administered on 03/10/20at 07:57; St art 03/10/20 at 08:00; Stop 03/10/20 at 08:01; Status DC Clonidine HCl (Catapres) 0.1 mg 1X ONCE PO Last administered on 03/10/20at 08:41; Start 03/10/20 at 08:30; Stop 03/10/20 at 08:50; Status DC Hydromorphone HCl (Dilaudid) 1 mg 1X ONCE IM ; Start 03/10/20 at 09:00; Stop 03/10/20 at 09:01; Status DC Prochlorperazine Edisylate (Compazine) 10 mg 1X ONCE IM ; Start 03/10/20 at 09:00; Stop 03/10/20 at 09:01; Status DC Clonidine HCl (Catapres Tts-2) 1 patch 1X ONCE TD ; Start 03/10/20 at 09:00; Stop 03/10/20 at 09:01; Status DC Insulin Human Lispro (HumaLOG) 0-5 UNITS TIDWMEALS SQ ; Start 03/10/20 at 12:00 Dextrose (Dextrose 50%-Water Syringe) 12.5 gm PRN Q15MIN PRN IV SEE COMMENTS; Start 03/10/20 at 09:00 Active Scripts Active Orphenadrine Citrate 100 Mg Tablet.er 1 Tab PO BID PRN 10 Days Reglan (Metoclopramide Hcl) 10 Mg Tablet 1 Tab PO QID PRN 5 Days before food and bedtime Promethazine Hcl 12.5 Mg Tablet 12.5 Mg PO Q6H PRN Levsin-Sl (Hyoscyamine Sulfate) 0.125 Mg Tab.subl 0.125 Mg SL PRN Q4-6HRS PRN Isosorbide Mononitrate Er (Isosorbide Mononitrate) 30 Mg Tab.er.24h 1 Tab PO DAILY 30 Days Lidocaine PATCH (Lidocaine) 1 Each Adh..patch 1 Patch TD DAILY 30 Days Cyclobenzaprine Hcl 10 Mg Tablet 10 Mg PO PRN Q6HRS PRN 10 Days Reported Amlodipine Besylate 10 Mg Tablet 10 Mg PO DAILY Hydralazine Hcl 50 Mg Tablet 1 Tab PO TID Carvedilol 25 Mg Tablet 25 Mg PO BIDWMEALS Promethazine Hcl 25 Mg Tablet 1 Tab PO PRN Q6HRS Miralax (Polyethylene Glycol 3350) 17 Gm Powd.pack 1 Packet PO BID Lantus (Insulin Glargine,Hum.rec.anlog) 100 Unit/1 Ml Vial 25 Unit SQ QHS Novolog (Insulin Aspart) 100 Unit/1 Ml Cartridge 4 Unit SQ TID Lexapro (Escitalopram Oxalate) 20 Mg Tablet 1 Tab PO DAILY Pantoprazole Sodium (Pantoprazole Sodium) 40 Mg Tablet.dr 1 Tab PO DAILY Dicyclomine Hcl 10 Mg Capsule 1 Cap PO TID Allergies Allergies: Coded Allergies: ondansetron (Verified Allergy, Severe, edema, 07/12/19) ketorolac (Verified Allergy, Intermediate, hives, 07/12/19) morphine (Verified Allergy, Intermediate, hives, 07/12/19) ROS Review of System Review of Systems: Review of Systems: Constitutional: Denies fever or chills; reports malaise Eyes: Denies redness or eye pain HENT: Denies nasal congestion or sore throat Respiratory: Denies cough or shortness of breath Cardiovascular: Denies chest pain or palpitations GI: Reports abdominal pain, nausea, and vomiting : Denies dysuria or hematuria Musculoskeletal: Denies back pain or joint pain Integument: Denies rash or skin lesions Neurologic: Denies headache, focal weakness or sensory changes 14 pt systems were reviewed and found to be within normal limits, except as documented General: YES: Fatigue PSYCHOLOGICAL ROS: No: Anxiety, Behavioral Disorder, Concentration difficultie, Decreased libido, Depression, Disorientation, Hallucinations, Hostility, Irritablity, Memory difficulties, Mood Swings, Obsessive thoughts, Physical abuse, Sexual abuse, Sleep disturbances, Suicidal ideation, Other Hematological and Lymphatic: No: Bleeding Problems, Blood Clots, Blood Transfusions, Brusing, Night Sweats, Pallor, Swollen Lymph Nodes, Other Respiratory: No: Cough, Hemoptysis, Orthopnea, Pleuritic Pain, Shortness of b reath, SOB with excertion, Sputum Changes, Stridor, Tachypnea, Wheezing, Other Gastrointestinal: Yes Nausea, Yes Vomiting, Yes Abdominal Pain; No Diarrhea, No Constipation, No Melena, No Hematochezia, No Other Neurological: No Behavorial Changes, No Bowel/Bladder ControlChng, No Confusion, No Dizziness, No Gait Disturbance, No Headaches, No Impaired Coord/balance, No Memory Loss, No Numbness/Tingling, No Seizures, No Speech Problems, No Tremors, No Visual Changes, No Weakness, No Other Physical Exam Physical Exam Constitutional: Well developed, well nourished, mild distress secondary to pain HENT: Normocephalic, atraumatic Eyes: Conjunctiva normal, no discharge Neck: Normal range of motion, no tenderness, supple Lungs & Thorax: No respiratory distress, equal chest rise and fall, left chest wall hemodialysis catheter Abdomen: Soft, diffuse tenderness Skin: Warm, dry, no erythema, no rash Extremities: No tenderness, ROM intact, no edema Neurologic: Alert and oriented X 3, no focal deficits noted Psychologic: Affect normal, judgment normal General: Alert, Oriented X3, Cooperative, mild distress HEENT: EOMI, Mucous membr. moist/pink Lungs: Clear to auscultation, Normal air movement Heart: RRR Breasts: Not examined Abdomen: No hepatosplenomegaly Rectal Exam: not examined PELVIC: Examination not indicated Extremities: No cyanosis, No edema Skin: No significant lesion Neuro: Normal speech, Sensation intact, Cranial nerves 3-12 NL Psych/Mental Status: Mental status NL, Mood NL Vitals Vitals Vital Signs Date Time Temp Pulse Resp B/P (MAP) Pulse Ox O2 Delivery O2 Flow Rate FiO2 03/10/20 08:41 94 227/154 03/10/20 08:00 22 95 Room Air 03/10/20 07:14 98.2 98.2 Labs Labs Laboratory Tests Test 03/10/20 07:50 White Blood Count 7.7 x10^3/uL (4.0-11.0) Red Blood Count 4.00 x10^6/uL (3.50-5.40) Hemoglobin 12.1 g/dL (12.0-15.5) Hematocrit 36.1 % (36.0-47.0) Mean Corpuscular Volume 90 fL (79-100) Mean Corpuscular Hemoglobin 30 pg (25-35) Mean Corpuscular Hemoglobin Concent 34 g/dL (31-37) Red Cell Distribution Width 16.5 % (11.5-14.5) Platelet Count 313 x10^3/uL (140-400) Neutrophils (%) (Auto) 69 % (31-73) Lymphocytes (%) (Auto) 24 % (24-48) Monocytes (%) (Auto) 4 % (0-9) Eosinophils (%) (Auto) 2 % (0-3) Basophils (%) (Auto) 1 % (0-3) Neutrophils # (Auto) 5.3 x10^3/uL (1.8-7.7) Lymphocytes # (Auto) 1.8 x10^3/uL (1.0-4.8) Monocytes # (Auto) 0.3 x10^3/uL (0.0-1.1) Eosinophils # (Auto) 0.2 x10^3/uL (0.0-0.7) Basophils # (Auto) 0.1 x10^3/uL (0.0-0.2) Prothrombin Time 13.3 SEC (11.7-14.0) Prothromb Time International Ratio 1.1 (0.8-1.1) Activated Partial Thromboplast Time 40 SEC (24-38) Sodium Level 142 mmol/L (136-145) Potassium Level 4.1 mmol/L (3.5-5.1) Chloride Level 107 mmol/L (98-107) Carbon Dioxide Level 22 mmol/L (21-32) Anion Gap 13 (6-14) Blood Urea Nitrogen 33 mg/dL (7-20) Creatinine 4.4 mg/dL (0.6-1.0) Estimated GFR (Cockcroft-Gault) 14.1 BUN/Creatinine Ratio 8 (6-20) Glucose Level 135 mg/dL (70-99) Calcium Level 8.9 mg/dL (8.5-10.1) Magnesium Level 1.9 mg/dL (1.8-2.4) Total Bilirubin 0.2 mg/dL (0.2-1.0) Aspartate Amino Transf (AST/SGOT) 16 U/L (15-37) Alanine Aminotransferase (ALT/SGPT) 10 U/L (14-59) Alkaline Phosphatase 95 U/L (46-116) Total Protein 7.4 g/dL (6.4-8.2) Albumin 3.3 g/dL (3.4-5.0) Albumin/Globulin Ratio 0.8 (1.0-1.7) Lipase 493 U/L (73-393) Serum Test, Qualitative Negative (NEG) Ethyl Alcohol Level < 10 mg/dL (0-10) Laboratory Tests Test 03/10/20 07:50 White Blood Count 7.7 x10^3/uL (4.0-11.0) Red Blood Count 4.00 x10^6/uL (3.50-5.40) Hemoglobin 12.1 g/dL (12.0-15.5) Hematocrit 36.1 % (36.0-47.0) Mean Corpuscular Volume 90 fL (79-100) Mean Corpuscular Hemoglobin 30 pg (25-35) Mean Corpuscular Hemoglobin Concent 34 g/dL (31-37) Red Cell Distribution Width 16.5 % (11.5-14.5) Platelet Count 313 x10^3/uL (140-400) Neutrophils (%) (Auto) 69 % (31-73) Lymphocytes (%) (Auto) 24 % (24-48) Monocytes (%) (Auto) 4 % (0-9) Eosinophils (%) (Auto) 2 % (0-3) Basophils (%) (Auto) 1 % (0-3) Neutrophils # (Auto) 5.3 x10^3/uL (1.8-7.7) Lymphocytes # (Auto) 1.8 x10^3/uL (1.0-4.8) Monocytes # (Auto) 0.3 x10^3/uL (0.0-1.1) Eosinophils # (Auto) 0.2 x10^3/uL (0.0-0.7) Basophils # (Auto) 0.1 x10^3/uL (0.0-0.2) Prothrombin Time 13.3 SEC (11.7-14.0) Prothromb Time International Ratio 1.1 (0.8-1.1) Activated Partial Thromboplast Time 40 SEC (24-38) Sodium Level 142 mmol/L (136-145) Potassium Level 4.1 mmol/L (3.5-5.1) Chloride Level 107 mmol/L (98-107) Carbon Dioxide Level 22 mmol/L (21-32) Anion Gap 13 (6-14) Blood Urea Nitrogen 33 mg/dL (7-20) Creatinine 4.4 mg/dL (0.6-1.0) Estimated GFR (Cockcroft-Gault) 14.1 BUN/Creatinine Ratio 8 (6-20) Glucose Level 135 mg/dL (70-99) Calcium Level 8.9 mg/dL (8.5-10.1) Magnesium Level 1.9 mg/dL (1.8-2.4) Total Bilirubin 0.2 mg/dL (0.2-1.0) Aspartate Amino Transf (AST/SGOT) 16 U/L (15-37) Alanine Aminotransferase (ALT/SGPT) 10 U/L (14-59) Alkaline Phosphatase 95 U/L (46-116) Total Protein 7.4 g/dL (6.4-8.2) Albumin 3.3 g/dL (3.4-5.0) Albumin/Globulin Ratio 0.8 (1.0-1.7) Lipase 493 U/L (73-393) Serum Test, Qualitative Negative (NEG) Ethyl Alcohol Level < 10 mg/dL (0-10) Images Images Examination: CT ABDOMEN PELVIS WO CONTRAST History: Reason: diffuse abdominal pain, hx of pancreatitis / Spl. Instructions: / History: Comparison/Correlation: 12/31/2019 CT abdomen and pelvis without contrast Findings: Axial images of the abdomen and pelvis were obtained without contrast. Sagittal and coronal reformatted images were provided. Linear atelectasis or scarring right middle lobe is minimal. Cholecystectomy noted. Liver, spleen, right adrenal gland, and kidneys are unremarkable. Left adrenal gland adenoma again is seen measuring up to 1.9 cm diameter. No extraluminal gas or obstruction. No enlarged abdominal or pelvic lymph nodes. Minimal right flank edema or ascites is present. Small amount of pelvic free fluid is present with Hounsfield units of 21. Pancreas appears grossly unremarkable but evaluation may be limited due to lack of IV and oral contrast in the mid mesenteric fat. Fluid distends the stomach. Multiple distended small bowel loops are present involving the upper abdomen and mid abdomen. Transition of small bowel diameter within the right lower quadrant is suspected. Appendix is normal. Uterus is unremarkable. Urinary bladder is mostly decompressed with associated circumferential wall thickening. Bony structures are unremarkable. Impression: Distended small bowel loops with transition suggested within the right lower quadrant. Findings may represent ileus or small bowel obstruction. Pelvic free fluid is present and of slightly higher density. While this may be physiologic, more significant processes as excluded. No definite findings involving the pancreas although evaluation may be limited. PQRS Compliance Statement: One or more of the following individualized dose reduction techniques were utilized for this examination: 1. Automated exposure control 2. Adjustment of the mA and/or kV according to patient size 3. Use of iterative reconstruction technique Electronically signed by: Alex Shahid MD (03/10/2020 8:31 AM) [id number] VTE Prophylaxis Ordered VTE Prophylaxis Devices: Contraindicated VTE Pharmacological Prophylaxi: Yes Assessment/Plan Assessment/Plan Impression: Distended small bowel loops with transition suggested within the right lower quadrant. C/W ILEUS VS small bowel obstruction. Pelvic free fluid is present and of slightly higher density. While this may be physiologic, more significant processes NOT excluded. hypertensive urgency ESRD ON DIALYSIS HX HYPERTENSION with 2018 HX THC ABUSE tobacco abuse disorder PLAN ADMIT CONSULT NEPHROLOGY IV HYDRALAZINE 10MG Q 4 HRS PRN BP SUPPORT GI CONSULT NPO IV PROTONIX CARDIOLOGY CONSULT ECHO SQ HEPARIN DVT PROPHYLAXIS 35 min cc time Justicifation of Admission Dx: Justifications for Admission: Justification of Admission Dx: Yes GINA PIÑA MD Mar 10, 2020 09:35
[2020-03-10 10:30] VITALS: BP 208/109
[2020-03-10] MEDS ORDERED: ACETAMINOPHEN 650 MG SUPP.RECT. PR PRN (10:30)
[2020-03-10] MEDS ORDERED: hydrALAZINE 20 MG/ML VIAL. IVP PRN (10:30)
--- NOTE | 2020-03-10 11:03 | PDOC2 ---
CONSULT Date of Consult Date of Consult DATE: 03/10/20 TIME: 10:49 Reason for Consult Reason for Consult: ESRD Source Source: Chart review, Patient History of Present Illness Reason for Visit: Pt is a 34 yo AAF with ESRD on HD TTS She reports she has been on HD only for past 3-4 months but per the previous records at [facility] she was on HD in October of this year admitted with c/o N/V at the time She presented to the ER with 9-day history of worsening abdominal pain She was admitted over at until 02/29/2020 with report of pancreatitis. Her Last HD was on March 01 and she didn'nt go due to abdominal pain. In the pa st symptoms exacerbated by Marijuana use and may have DM related gastroparesis as well She states she has good UOP . No SOB, No CP .She report associated nausea and vomiting. Denies alcohol use. Denies fever or chills. Denies known exposure to COVID-19. Past Medical History Cardiovascular: HTN GI: Other Psych: Addictions Renal/: Chronic renal insuff, Chronic renal failure Endocrine: Diabetes, Hyperparathyroidism Past Surgical History Past Surgical History: Cholecystectomy, No pertinent history Family History Family History: Hypertension Social History <1 pack per day ALCOHOL: none Drugs: Marijuana Current Problem List Problem List Problems Medical Problems: (1) Abdominal pain Status: Acute (2) Chronic abdominal pain Status: Acute (3) ESRD (end stage renal disease) on dialysis Status: Acute (4) Hypertensive urgency Status: Acute (5) Small bowel obstruction Status: Acute Current Medications Current Medications Current Medications Fentanyl Citrate (Fentanyl 2ml Vial) 50 mcg 1X ONCE IVP ; Start 03/10/20 at 07:45; Stop 03/10/20 at 07:40; Status DC Famotidine (Pepcid Vial) 20 mg 1X ONCE IVP ; Start 03/10/20 at 07:45; Stop 03/10/20 at 07:40; Status DC Metoclopramide HCl (Reglan Vial) 10 mg 1X ONCE IVP ; Start 03/10/20 at 07:45; Stop 03/10/20 at 07:40; Status DC Hyoscyamine (Anaspaz) 0.125 mg 1X ONCE PO Last administered on 03/10/20at 07:57; Start 03/10/20 at 08:00; Stop 03/10/20 at 08:01; Status DC Fentanyl Citrate (Fentanyl 2ml Vial) 75 mcg 1X ONCE IM Last administered on 03/10/20at 07:57; Start 03/10/20 at 08:00; Stop 03/10/20 at 08:01; Status DC Metoclopramide HCl (Reglan Vial) 10 mg 1X ONCE IM Last administered on 03/10/20at 07:56; Start 03/10/20 at 08:00; Stop 03/10/20 at 08:01; Status DC Famotidine (Pepcid) 20 mg 1X ONCE PO Last administered on 03/10/20at 07:57; Start 03/10/20 at 08:00; Stop 03/10/20 at 08:01; Status DC Clonidine HCl (Catapres) 0.1 mg 1X ONCE PO Last administered on 03/10/20at 08:41; Start 03/10/20 at 08:30; Stop 03/10/20 at 08:50; Status DC Hydromorphone HCl (Dilaudid) 1 mg 1X ONCE IM Last administered on 03/10/20at 09:41; Start 03/10/20 at 09:00; Stop 03/10/20 at 09:01; Status DC Prochlorperazine Edisylate (Compazine) 10 mg 1X ONCE IM Last administered on 03/10/20at 09:39; Start 03/10/20 at 09:00; Stop 03/10/20 at 09:01; Status DC Clonidine HCl (Catapres Tts-2) 1 patch 1X ONCE TD Last administered on 03/10/20at 09:35; Start 03/10/20 at 09:00; Stop 03/10/20 at 09:01; Status DC Insulin Human Lispro (HumaLOG) 0-5 UNITS TIDWMEALS SQ ; Start 03/10/20 at 12:00 Dextrose (Dextrose 50%-Water Syringe) 12.5 gm PRN Q15MIN PRN IV SEE COMMENTS; Start 03/10/20 at 09:00 Lidocaine (Lidoderm) 1 patch DAILY TD ; Start 03/10/20 at 10:30 Miscellaneous (Lidoderm Patch Removal) 1 ea QHS MC ; Start 03/10/20 at 21:00 Acetaminophen (Tylenol Supp) 650 mg PRN Q4HRS PRN PA TEMP OVER 100.4F OR MILD PAIN; Start 03/10/20 at 10:30 Albuterol/ Ipratropium (Duoneb) 3 ml Q4HRS NEB ; Start 03/10/20 at 12:00 Hydralazine HCl (Apresoline Inj) 10 mg PRN Q4HRS PRN IVP ELEVATED BP, SEE COMMENTS; Start 03/10/20 at 10:30 Active Scripts Active Orphenadrine Citrate 100 Mg Tablet.er 1 Tab PO BID PRN 10 Days Reglan (Metoclopramide Hcl) 10 Mg Tablet 1 Tab PO QID PRN 5 Days before food and bedtime Promethazine Hcl 12.5 Mg Tablet 12.5 Mg PO Q6H PRN Levsin-Sl (Hyoscyamine Sulfate) 0.125 Mg Tab.subl 0.125 Mg SL PRN Q4-6HRS PRN Isosorbide Mononitrate Er (Isosorbide Mononitrate) 30 Mg Tab.er.24h 1 Tab PO D AILY 30 Days Lidocaine PATCH (Lidocaine) 1 Each Adh..patch 1 Patch TD DAILY 30 Days Cyclobenzaprine Hcl 10 Mg Tablet 10 Mg PO PRN Q6HRS PRN 10 Days Reported Amlodipine Besylate 10 Mg Tablet 10 Mg PO DAILY Hydralazine Hcl 50 Mg Tablet 1 Tab PO TID Carvedilol 25 Mg Tablet 25 Mg PO BIDWMEALS Promethazine Hcl 25 Mg Tablet 1 Tab PO PRN Q6HRS Miralax (Polyethylene Glycol 3350) 17 Gm Powd.pack 1 Packet PO BID Lantus (Insulin Glargine,Hum.rec.anlog) 100 Unit/1 Ml Vial 25 Unit SQ QHS Novolog (Insulin Aspart) 100 Unit/1 Ml Cartridge 4 Unit SQ TID Lexapro (Escitalopram Oxalate) 20 Mg Tablet 1 Tab PO DAILY Pantoprazole Sodium (Pantoprazole Sodium) 40 Mg Tablet.dr 1 Tab PO DAILY Dicyclomine Hcl 10 Mg Capsule 1 Cap PO TID Allergies Allergies: Coded Allergies: ondansetron (Verified Allergy, Severe, edema, 07/12/19) ketorolac (Verified Allergy, Intermediate, hives, 07/12/19) morphine (Verified Allergy, Intermediate, hives, 07/12/19) ROS Review of System All 14 systems reviewed and negative, except positives as in HPI Physical Exam Physical Exam GEN: NAD HEEN: OM moist NECK: supple CVS: S1S2 RESP: CTA, No Acc. Muscle Use GI: : No CVA tenderness, No Suprapubic Tenderness, No choi NEUR--Grossly normal SKIN No rash EXT No LE edema, has TDC Vital Signs Vital Signs Date Time Temp Pulse Resp B/P (MAP) Pulse Ox O2 Delivery O2 Flow Rate FiO2 03/10/20 10:10 16 98 Room Air 03/10/20 10:00 96 190/104 (132) 03/10/20 07:14 98.2 98.2 Assessment & Plan ESRD - On HD TTS Last HD was on March 01 E-Lytes stable,Vol status stable has good RRF per Pt Hypertension - Clonidine patch in ER , Resume home antihypertensives Abdominal pain- SBO/Ileus on CT scan - per Primary/GS Gastroparesis- 2/2 DM DM- per primary Hx of Marijuana use- Positive in october Anemia - Hgb stable, No indication for ZORAIDA Labs Labs Laboratory Tests Test 03/10/20 07:50 White Blood Count 7.7 x10^3/uL (4.0-11.0) Red Blood Count 4.00 x10^6/uL (3.50-5.40) Hemoglobin 12.1 g/dL (12.0-15.5) Hematocrit 36.1 % (36.0-47.0) Mean Corpuscular Volume 90 fL (79-100) Mean Corpuscular Hemoglobin 30 pg (25-35) Mean Corpuscular Hemoglobin Concent 34 g/dL (31-37) Red Cell Distribution Width 16.5 % (11.5-14.5) Platelet Count 313 x10^3/uL (140-400) Neutrophils (%) (Auto) 69 % (31-73) Lymphocytes (%) (Auto) 24 % (24-48) Monocytes (%) (Auto) 4 % (0-9) Eosinophils (%) (Auto) 2 % (0-3) Basophils (%) (Auto) 1 % (0-3) Neutrophils # (Auto) 5.3 x10^3/uL (1.8-7.7) Lymphocytes # (Auto) 1.8 x10^3/uL (1.0-4.8) Monocytes # (Auto) 0.3 x10^3/uL (0.0-1.1) Eosinophils # (Auto) 0.2 x10^3/uL (0.0-0.7) Basophils # (Auto) 0.1 x10^3/uL (0.0-0.2) Prothrombin Time 13.3 SEC (11.7-14.0) Prothromb Time International Ratio 1.1 (0.8-1.1) Activated Partial Thromboplast Time 40 SEC (24-38) Sodium Level 142 mmol/L (136-145) Potassium Level 4.1 mmol/L (3.5-5.1) Chloride Level 107 mmol/L (98-107) Carbon Dioxide Level 22 mmol/L (21-32) Anion Gap 13 (6-14) Blood Urea Nitrogen 33 mg/dL (7-20) Creatinine 4.4 mg/dL (0.6-1.0) Estimated GFR (Cockcroft-Gault) 14.1 BUN/Creatinine Ratio 8 (6-20) Glucose Level 135 mg/dL (70-99) Calcium Level 8.9 mg/dL (8.5-10.1) Magnesium Level 1.9 mg/dL (1.8-2.4) Total Bilirubin 0.2 mg/dL (0.2-1.0) Aspartate Amino Transf (AST/SGOT) 16 U/L (15-37) Alanine Aminotransferase (ALT/SGPT) 10 U/L (14-59) Alkaline Phosphatase 95 U/L (46-116) Total Protein 7.4 g/dL (6.4-8.2) Albumin 3.3 g/dL (3.4-5.0) Albumin/Globulin Ratio 0.8 (1.0-1.7) Lipase 493 U/L (73-393) Serum Test, Qualitative Negative (NEG) Ethyl Alcohol Level < 10 mg/dL (0-10) Laboratory Tests Test 03/10/20 07:50 White Blood Count 7.7 x10^3/uL (4.0-11.0) Red Blood Count 4.00 x10^6/uL (3.50-5.40) Hemoglobin 12.1 g/dL (12.0-15.5) Hematocrit 36.1 % (36.0-47.0) Mean Corpuscular Volume 90 fL (79-100) Mean Corpuscular Hemoglobin 30 pg (25-35) Mean Corpuscular Hemoglobin Concent 34 g/dL (31-37) Red Cell Distribution Width 16.5 % (11.5-14.5) Platelet Count 313 x10^3/uL (140-400) Neutrophils (%) (Auto) 69 % (31-73) Lymphocytes (%) (Auto) 24 % (24-48) Monocytes (%) (Auto) 4 % (0-9) Eosinophils (%) (Auto) 2 % (0-3) Basophils (%) (Auto) 1 % (0-3) Neutrophils # (Auto) 5.3 x10^3/uL (1.8-7.7) Lymphocytes # (Auto) 1.8 x10^3/uL (1.0-4.8) Monocytes # (Auto) 0.3 x10^3/uL (0.0-1.1) Eosinophils # (Auto) 0.2 x10^3/uL (0.0-0.7) Basophils # (Auto) 0.1 x10^3/uL (0.0-0.2) Prothrombin Time 13.3 SEC (11.7-14.0) Prothromb Time International Ratio 1.1 (0.8-1.1) Activated Partial Thromboplast Time 40 SEC (24-38) Sodium Level 142 mmol/L (136-145) Potassium Level 4.1 mmol/L (3.5-5.1) Chloride Level 107 mmol/L (98-107) Carbon Dioxide Level 22 mmol/L (21-32) Anion Gap 13 (6-14) Blood Urea Nitrogen 33 mg/dL (7-20) Creatinine 4.4 mg/dL (0.6-1.0) Estimated GFR (Cockcroft-Gault) 14.1 BUN/Creatinine Ratio 8 (6-20) Glucose Level 135 mg/dL (70-99) Calcium Level 8.9 mg/dL (8.5-10.1) Magnesium Level 1.9 mg/dL (1.8-2.4) Total Bilirubin 0.2 mg/dL (0.2-1.0) Aspartate Amino Transf (AST/SGOT) 16 U/L (15-37) Alanine Aminotransferase (ALT/SGPT) 10 U/L (14-59) Alkaline Phosphatase 95 U/L (46-116) Total Protein 7.4 g/dL (6.4-8.2) Albumin 3.3 g/dL (3.4-5.0) Albumin/Globulin Ratio 0.8 (1.0-1.7) Lipase 493 U/L (73-393) Serum Test, Qualitative Negative (NEG) Ethyl Alcohol Level < 10 mg/dL (0-10) Review All relevant outside records, renal labs, imaging studies, telemetry/EKG's were reviewed. Images Images CT abdomen-- Distended small bowel loops with transition suggested within the right lower quadrant. Findings may represent ileus or small bowel obstruction. Pelvic free fluid is present and of slightly higher density. While this may be physiologic, more significant processes as excluded. No definite findings involving the pancreas although evaluation may be limited. MELLISSA DE MD Mar 10, 2020 11:03
--- NOTE | 2020-03-10 11:58 | PDOC2 ---
CARDIAC CONSULT DATE OF CONSULT Date of Consult DATE: 03/10/20 TIME: 11:49 REASON FOR CONSULT Reason for Consult: Hypertension REFERRING PHYSICIAN Referring Physician: Dr. Arndt SOURCE Source: Chart review, Patient HISTORY OF PRESENT ILLNESS HISTORY OF PRESENT ILLNESS This is a 34 yo female who presented secondary to abdominal pain, nausea/vomiting. Blood pressure significantly elevated, which prompted this consult. PAST MEDICAL HISTORY Cardiovascular: HTN, Hyperlipidemia GI: GERD, Other (gastroparesis, pancreatitis ) Psych: Anxiety, Depression Renal/: Chronic renal failure (ESRD on HD) Endocrine: Diabetes PAST SURGICAL HISTORY Past Surgical History cholecystectomy, tubal ligation, LUE fistula FAMILY HISTORY Family History: Hypertension SOCIAL HISTORY Smoke: <1 pack per day ALCOHOL: none Drugs: Marijuana Lives: with Family CURRENT MEDICATIONS CURRENT MEDICATIONS Current Medications Medications (Trade) Dose Ordered Sig/Brown Route PRN Reason Start Time Stop Time Status Last Admin Dose Admin Hyoscyamine (Anaspaz) 0.125 mg 1X ONCE PO 03/10/20 08:00 03/10/20 08:01 DC 03/10/20 07:57 Fentanyl Citrate (Fentanyl 2ml Vial) 75 mcg 1X ONCE IM 03/10/20 08:00 03/10/20 08:01 DC 03/10/20 07:57 Metoclopramide HCl (Reglan Vial) 10 mg 1X ONCE IM 03/10/20 08:00 03/10/20 08:01 DC 03/10/20 07:56 Famotidine (Pepcid) 20 mg 1X ONCE PO 03/10/20 08:00 03/10/20 08:01 DC 03/10/20 07:57 Clonidine HCl (Catapres) 0.1 mg 1X ONCE PO 03/10/20 08:30 03/10/20 08:50 DC 03/10/20 08:41 Hydromorphone HCl (Dilaudid) 1 mg 1X ONCE IM 03/10/20 09:00 03/10/20 09:01 DC 03/10/20 09:41 Prochlorperazine Edisylate (Compazine) 10 mg 1X ONCE IM 03/10/20 09:00 03/10/20 09:01 DC 03/10/20 09:39 Clonidine HCl (Catapres Tts-2) 1 patch 1X ONCE TD 03/10/20 09:00 03/10/20 09:01 DC 03/10/20 09:35 ALLERGIES ALLERGIES: Coded Allergies: ondansetron (Verified Allergy, Severe, edema, 07/12/19) ketorolac (Verified Allergy, Intermediate, hives, 07/12/19) morphine (Verified Allergy, Intermediate, hives, 07/12/19) ROS Review of System 14 point ROS conducted with pertinent positives noted above in HPI PHYSICAL EXAM General: Alert, Oriented X3, Cooperative, No acute distress HEENT: Atraumatic Lungs: Clear to auscultation, Other (diminished bases ) Heart: Regular rate, Normal S1, Normal S2 Abdomen: Other (tenderness ) Extremities: Other (trace upper and lower extremity edema bilaterally ) Skin: No breakdown, No significant lesion Neuro: Normal speech, Sensation intact Psych/Mental Status: Mental status NL, Other (drowsy) MUSCULOSKELETAL: No deformity VITALS/I&O VITALS/I&O: Vital Signs Date Time Temp Pulse Resp B/P (MAP) Pulse Ox O2 Delivery O2 Flow Rate FiO2 03/10/20 10:10 16 98 Room Air 03/10/20 10:00 96 190/104 (132) 03/10/20 07:14 98.2 98.2 LABS Lab: Laboratory Tests Test 03/10/20 07:50 White Blood Count 7.7 x10^3/uL (4.0-11.0) Red Blood Count 4.00 x10^6/uL (3.50-5.40) Hemoglobin 12.1 g/dL (12.0-15.5) Hematocrit 36.1 % (36.0-47.0) Mean Corpuscular Volume 90 fL (79-100) Mean Corpuscular Hemoglobin 30 pg (25-35) Mean Corpuscular Hemoglobin Concent 34 g/dL (31-37) Red Cell Distribution Width 16.5 % (11.5-14.5) H Platelet Count 313 x10^3/uL (140-400) Neutrophils (%) (Auto) 69 % (31-73) Lymphocytes (%) (Auto) 24 % (24-48) Monocytes (%) (Auto) 4 % (0-9) Eosinophils (%) (Auto) 2 % (0-3) Basophils (%) (Auto) 1 % (0-3) Neutrophils # (Auto) 5.3 x10^3/uL (1.8-7.7) Lymphocytes # (Auto) 1.8 x10^3/uL (1.0-4.8) Monocytes # (Auto) 0.3 x10^3/uL (0.0-1.1) Eosinophils # (Auto) 0.2 x10^3/uL (0.0-0.7) Basophils # (Auto) 0.1 x10^3/uL (0.0-0.2) Prothrombin Time 13.3 SEC (11.7-14.0) Prothrombin Time INR 1.1 (0.8-1.1) Activated Partial Thromboplast Time 40 SEC (24-38) H Sodium Level 142 mmol/L (136-145) Potassium Level 4.1 mmol/L (3.5-5.1) Chloride Level 107 mmol/L (98-107) Carbon Dioxide Level 22 mmol/L (21-32) Anion Gap 13 (6-14) Blood Urea Nitrogen 33 mg/dL (7-20) H Creatinine 4.4 mg/dL (0.6-1.0) H Estimated GFR (Cockcroft-Gault) 14.1 BUN/Creatinine Ratio 8 (6-20) Glucose Level 135 mg/dL (70-99) H Calcium Level 8.9 mg/dL (8.5-10.1) Magnesium Level 1.9 mg/dL (1.8-2.4) Total Bilirubin 0.2 mg/dL (0.2-1.0) Aspartate Amino Transferase (AST) 16 U/L (15-37) Alanine Aminotransferase (ALT) 10 U/L (14-59) L Alkaline Phosphatase 95 U/L (46-116) Total Protein 7.4 g/dL (6.4-8.2) Albumin 3.3 g/dL (3.4-5.0) L Albumin/Globulin Ratio 0.8 (1.0-1.7) L Lipase 493 U/L (73-393) H Serum Test, Qualitative Negative (NEG) Ethyl Alcohol Level < 10 mg/dL (0-10) Laboratory Tests 03/10/20 07:50 Laboratory Tests 03/10/20 07:50 ASSESSMENT/PLAN ASSESSMENT/PLAN 1. Abdominal pain, nausea/vomiting. Has not been able to take meds. Imaging with SBO 2. Recent pancreatitis; treated at [facility] 3. Hypertensive urgency; secondary to missed meds/HD 4. ESRD on HD. Has not been to HD since 02/28 as she has not felt well 5. Diabetes, II 6. Hyperlipidemia 7. Depression, anxiety Recommendations Clonidine patch added Can use hydralazine, labetalol PRN while not able to take PO Fluid offloading via HD Supportive care from a CV standpoint CHERYL SAWYER APRN Mar 10, 2020 11:58
[2020-03-10] MEDS: INSULIN LISPRO 300 UNITS/3 ML VIAL. SQ SCH ×2 (12:00→17:00)
[2020-03-10] MEDS ORDERED: PROMETHAZINE 25 MG SUPP.RECT. PR PRN (12:00)
[2020-03-10] MEDS ORDERED: IPRATRPIUM/ALBUTEROL 0.5/2.5MG 3 ML NEBU. NEB SCH (12:00)
[2020-03-10] MEDS: LIDOCAINE (700MG/PATCH) PATCH. TD SCH (12:02)
[2020-03-10] MEDS: fentaNYL PF VIAL 100 MCG/2 ML VIAL IVP PRN ×4 (12:07→21:36)
[2020-03-10] MEDS ORDERED: ALBUTEROL SULFATE 2.5 MG/3 ML NEBU. NEB PRN (12:15)
--- NOTE | 2020-03-10 12:15 | PDOC2 ---
GI CONSULT Reason For Consult: SBO HPI: HPI: 34 y/o female who is a difficult historian. She falls asleep during interview and when awake is focused on asking for pain medication or stares at the calendar on her phone. Says recently admitted to for "swollen pancreas." Apparently remained ill after discharge w/ n/v and abdominal pain - seems to indicate left flank pain now. Has not been to HD since 03/01 due to cramping (can't say where) and "I can't walk." Says cannot take BP meds due to vomiting. Can't remember when she last ate - Tuesday? Passing gas. Stooled last night. Last vomited earlier today - "not food." I believe she takes pantoprazole at home. Says she doesn't take Reglan. No answer when I asked about pain medication at home. We have seen her in the past. H/o recurrent n/v, gastroparesis, constipation, and left flank pain. Per past encounter, has tried Linzess, Amitiza, Miralax, and Relistor for constipation - when here in 06/2019, refused Relistor for awhile and declined Miralax. On Reglan in the past. H/o ACD. Previously reported EGD, colonoscopy, and GES at . S/p cholecystectomy. Normal liver on past imaging. Past TOPOGRAPHICAL FIELD ASSISTANT eval here - thought unlikely any TOPOGRAPHICAL FIELD ASSISTANT issue contributing to pain, also negative pelv US in the past. Concern for possible drug-seeking behavior in the past. +marijuana 3/3 tox screens in the past. PMH: PMH: HTN, ESRD on HD, DM, depression/anxiety, left adrenal nodule cholecystectomy, tubal ligation, LUE fistula FH: Family History: No pertinent hx Social History: Smoke: <1 pack per day ALCOHOL: occassional Drugs: Marijuana ROS: Per HPI. Vitals: Vitals: Vital Signs Date Time Temp Pulse Resp B/P (MAP) Pulse Ox O2 Delivery O2 Flow Rate FiO2 03/10/20 10:10 16 98 Room Air 03/10/20 10:00 96 190/104 (132) 03/10/20 07:14 98.2 98.2 Labs: Labs: Laboratory Tests Test 03/10/20 07:50 White Blood Count 7.7 x10^3/uL (4.0-11.0) Red Blood Count 4.00 x10^6/uL (3.50-5.40) Hemoglobin 12.1 g/dL (12.0-15.5) Hematocrit 36.1 % (36.0-47.0) Mean Corpuscular Volume 90 fL (79-100) Mean Corpuscular Hemoglobin 30 pg (25-35) Mean Corpuscular Hemoglobin Concent 34 g/dL (31-37) Red Cell Distribution Width 16.5 % (11.5-14.5) Platelet Count 313 x10^3/uL (140-400) Neutrophils (%) (Auto) 69 % (31-73) Lymphocytes (%) (Auto) 24 % (24-48) Monocytes (%) (Auto) 4 % (0-9) Eosinophils (%) (Auto) 2 % (0-3) Basophils (%) (Auto) 1 % (0-3) Neutrophils # (Auto) 5.3 x10^3/uL (1.8-7.7) Lymphocytes # (Auto) 1.8 x10^3/uL (1.0-4.8) Monocytes # (Auto) 0.3 x10^3/uL (0.0-1.1) Eosinophils # (Auto) 0.2 x10^3/uL (0.0-0.7) Basophils # (Auto) 0.1 x10^3/uL (0.0-0.2) Prothrombin Time 13.3 SEC (11.7-14.0) Prothromb Time International Ratio 1.1 (0.8-1.1) Activated Partial Thromboplast Time 40 SEC (24-38) Sodium Level 142 mmol/L (136-145) Potassium Level 4.1 mmol/L (3.5-5.1) Chloride Level 107 mmol/L (98-107) Carbon Dioxide Level 22 mmol/L (21-32) Anion Gap 13 (6-14) Blood Urea Nitrogen 33 mg/dL (7-20) Creatinine 4.4 mg/dL (0.6-1.0) Estimated GFR (Cockcroft-Gault) 14.1 BUN/Creatinine Ratio 8 (6-20) Glucose Level 135 mg/dL (70-99) Calcium Level 8.9 mg/dL (8.5-10.1) Magnesium Level 1.9 mg/dL (1.8-2.4) Total Bilirubin 0.2 mg/dL (0.2-1.0) Aspartate Amino Transf (AST/SGOT) 16 U/L (15-37) Alanine Aminotransferase (ALT/SGPT) 10 U/L (14-59) Alkaline Phosphatase 95 U/L (46-116) Total Protein 7.4 g/dL (6.4-8.2) Albumin 3.3 g/dL (3.4-5.0) Albumin/Globulin Ratio 0.8 (1.0-1.7) Lipase 493 U/L (73-393) Serum Test, Qualitative Negative (NEG) Ethyl Alcohol Level < 10 mg/dL (0-10) Allergies: Coded Allergies: ondansetron (Verified Allergy, Severe, edema, 07/12/19) ketorolac (Verified Allergy, Intermediate, hives, 07/12/19) morphine (Verified Allergy, Intermediate, hives, 07/12/19) Medications: Current Medications Medications (Trade) Dose Ordered Sig/Brown Route PRN Reason Start Time Stop Time Status Last Admin Dose Admin Hyoscyamine (Anaspaz) 0.125 mg 1X ONCE PO 03/10/20 08:00 03/10/20 08:01 DC 03/10/20 07:57 Fentanyl Citrate (Fentanyl 2ml Vial) 75 mcg 1X ONCE IM 03/10/20 08:00 03/10/20 08:01 DC 03/10/20 07:57 Metoclopramide HCl (Reglan Vial) 10 mg 1X ONCE IM 03/10/20 08:00 03/10/20 08:01 DC 03/10/20 07:56 Famotidine (Pepcid) 20 mg 1X ONCE PO 03/10/20 08:00 03/10/20 08:01 DC 03/10/20 07:57 Clonidine HCl (Catapres) 0.1 mg 1X ONCE PO 03/10/20 08:30 03/10/20 08:50 DC 03/10/20 08:41 Hydromorphone HCl (Dilaudid) 1 mg 1X ONCE IM 03/10/20 09:00 03/10/20 09:01 DC 03/10/20 09:41 Prochlorperazine Edisylate (Compazine) 10 mg 1X ONCE IM 03/10/20 09:00 03/10/20 09:01 DC 03/10/20 09:39 Clonidine HCl (Catapres Tts-2) 1 patch 1X ONCE TD 03/10/20 09:00 03/10/20 09:01 DC 03/10/20 09:35 Imaging: Imaging: CT A/P Impression: Distended small bowel loops with transition suggested within the right lower quadrant. Findings may represent ileus or small bowel obstruction. Pelvic free fluid is present and of slightly higher density. While this may be physiologic, more significant processes as excluded. No definite findings involving the pancreas although evaluation may be limited. PE: GEN: NAD HEENT: Atraumatic, PERRL LUNGS: CTAB HEART: RRR ABD: quiet, soft, nonspecifically tender EXTREMITY: No edema SKIN: No rashes, no jaundice NEURO/PSYCH: between drowsy and anxious A/P: A/P: Recurrent n/v, h/o gastroparesis - previous eval @ [facility] - non-compliant w/ HD, uncontrolled HTN Abnormal CT - ileus vs SBO, pelvic free fluid Mildly elevated lipase w/ unremarkable pancreas on noncontrast CT - ?recent pancreatitis at [facility] screen - previous colonoscopy @ H/o constipation - says stooling S/p cholecystectomy H/o cannabinoid use Chronic pain -- Challenging historian as in the past. D/w Dr. Solano - recommends NGT and surgery opinion for possible SBO. IV PPI. Recheck tox screen. Unclear significance of mildly elevated lipase - will ask for records from . Can address any issues w/ constipation later on. TOPOGRAPHICAL FIELD ASSISTANT, cardiology, and nephrology to follow as well. JANICE JACOBO Mar 10, 2020 12:15
--- NOTE | 2020-03-10 13:09 | PDOC2 ---
CONSULT Date of Consult Date of Consult DATE: 03/10/20 TIME: 13:08 Reason for Consult Reason for Consult: Abd pain, pelvic fluid on CT History of Present Illness Reason for Visit: HPI: The pt is a 34y admitted to the hospital for diffuse abdominal pain and N/V. The pts h/o is significant for type I DM, HTN and ESRD. The pt has had worsening abd pain for the last 9 days. She was recently admitted at for possible pancreatitis. In the ER here she underwent a CT revealing: Distended small bowel loops with transition suggested within the right lower quadrant. Findings may represent ileus or small bowel obstruction. Pelvic free fluid is present and of slightly higher density. While this may be physiologic, more significant processes as excluded. No definite findings involving the pancreas although evaluation may be limited. Due to the free fluid Dual Rate Dealer was consulted. The pt continues to have regular monthly cycles. Her last was 02/06/20. The CT described her uterus as unremarkable. Discussed limited value of additional imaging (u/s) at this time since an etiology had been established for her abd pain. If her pain did not improve with tx it may be reasonable to obtain an u/s. The pt was seen by me last Nov. At that time the pt was not on dialysis PMH: type I DM, h/o gastroparesis, HTN, h/o pancreatitis, ESRD (stage IV, now on dialysis) PSH: Ashley, left knee, AV fistula, C/S x 1 OBHx: ~30wk C/S, 2/2 preeclampsia, spent time in the ICU PP Dual Rate Dealer: LMP 02/06/20 BTL (with C/S) Menarche 15yo / cycles regular intervals (despite dialysis) Past Medical History Cardiovascular: HTN, Hyperlipidemia GI: GERD Psych: Anxiety, Depression Renal/: Chronic renal failure (ESRD on HD) Endocrine: Diabetes Past Surgical History Past Surgical History: Cholecystectomy, No pertinent history Family History Family History: Hypertension Social History <1 pack per day ALCOHOL: occassional Drugs: Marijuana Lives: with Family Current Problem List Problem List Problems Medical Problems: (1) Abdominal pain Status: Acute (2) Chronic abdominal pain Status: Acute (3) ESRD (end stage renal disease) on dialysis Status: Acute (4) Hypertensive urgency Status: Acute (5) Small bowel obstruction Status: Acute Current Medications Current Medications Current Medications Fentanyl Citrate (Fentanyl 2ml Vial) 50 mcg 1X ONCE IVP ; Start 03/10/20 at 07:45; Stop 03/10/20 at 07:40; Status DC Famotidine (Pepcid Vial) 20 mg 1X ONCE IVP ; Start 03/10/20 at 07:45; Stop 03/10/20 at 07:40; Status DC Metoclopramide HCl (Reglan Vial) 10 mg 1X ONCE IVP ; Start 03/10/20 at 07:45; Stop 03/10/20 at 07:40; Status DC Hyoscyamine (Anaspaz) 0.125 mg 1X ONCE PO Last administered on 03/10/20at 07:57; Start 03/10/20 at 08:00; Stop 03/10/20 at 08:01; Status DC Fentanyl Citrate (Fentanyl 2ml Vial) 75 mcg 1X ONCE IM Last administered on 03/10/20at 07:57; Start 03/10/20 at 08:00; Stop 03/10/20 at 08:01; Status DC Metoclopramide HCl (Reglan Vial) 10 mg 1X ONCE IM Last administered on 03/10/20at 07:56; Start 03/10/20 at 08:00; Stop 03/10/20 at 08:01; Status DC Famotidine (Pepcid) 20 mg 1X ONCE PO Last administered on 03/10/20at 07:57; Start 03/10/20 at 08:00; Stop 03/10/20 at 08:01; Status DC Clonidine HCl (Catapres) 0.1 mg 1X ONCE PO Last administered on 03/10/20at 08:41; Start 03/10/20 at 08:30; Stop 03/10/20 at 08:50; Status DC Hydromorphone HCl (Dilaudid) 1 mg 1X ONCE IM Last administered on 03/10/20at 09:41; Start 03/10/20 at 09:00; Stop 03/10/20 at 09:01; Status DC Prochlorperazine Edisylate (Compazine) 10 mg 1X ONCE IM Last administered on 03/10/20at 09:39; Start 03/10/20 at 09:00; Stop 03/10/20 at 09:01; Status DC Clonidine HCl (Catapres Tts-2) 1 patch 1X ONCE TD Last administered on 03/10at 09:35; Start 03/10/20 at 09:00; Stop 03/10/20 at 09:01; Status DC Insulin Human Lispro (HumaLOG) 0-5 UNITS TIDWMEALS SQ ; Start 03/10/20 at 12:00 Dextrose (Dextrose 50%-Water Syringe) 12.5 gm PRN Q15MIN PRN IV SEE COMMENTS; Start 03/10/20 at 09:00 Lidocaine (Lidoderm) 1 patch DAILY TD Last administered on 03/10/20at 12:02; Start 03/10/20 at 10:30 Miscellaneous (Lidoderm Patch Removal) 1 ea QHS MC ; Start 03/10/20 at 21:00 Acetaminophen (Tylenol Supp) 650 [address]N Q4HRS PRN CT TEMP OVER 100.4F OR MILD PAIN; Start 03/10/20 at 10:30 Albuterol/ Ipratropium (Duoneb) 3 ml Q4HRS NEB ; Start 03/10/20 at 12:00; Stop 03/10/20 at 11:59; Status DC Hydralazine HCl (Apresoline Inj) 10 mg PRN Q4HRS PRN IVP ELEVATED BP, SEE COMMENTS; Start 03/10/20 at 10:30; Stop 03/10/20 at 12:03; Status DC Labetalol HCl (Normodyne Iv Push) 20 mg PRN Q2HR PRN IVP HYPERTENSION; Start 03/10/20 at 12:00 Fentanyl Citrate (Fentanyl 2ml Vial) 50 mcg PRN Q3HRS PRN IVP PAIN Last administered on 03/10/20at 12:07; Start 03/10/20 at 12:00 Promethazine HCl (Phenergan Supp) [address] Q[address] NAUSEA/VOMITING; Start 03/10/20 at 12:00 Albuterol Sulfate (Ventolin Neb Soln) 2.5 mg PRN Q4HRS PRN NEB SHORTNESS OF BREATH; Start 03/10/20 at 12:15 Hydralazine HCl (Apresoline Inj) 20 mg PRN Q4HRS PRN IVP ELEVATED BP, SEE COMMENTS; Start 03/10/20 at 12:15 Pantoprazole Sodium (PROTONIX VIAL for IV PUSH) 40 mg DAILYAC IVP ; Start 03/10/20 at 13:00 Fentanyl Citrate (Fentanyl 2ml Vial) 75 mcg 1X ONCE IM ; Start 03/10/20 at 12:30; Stop 03/10/20 at 12:31; Status DC Active Scripts Active Orphenadrine Citrate 100 Mg Tablet.er 1 Tab PO BID PRN 10 Days Reglan (Metoclopramide Hcl) 10 Mg Tablet 1 Tab PO QID PRN 5 Days before food and bedtime Promethazine Hcl 12.5 Mg Tablet 12.5 Mg PO Q6H PRN Levsin-Sl (Hyoscyamine Sulfate) 0.125 Mg Tab.subl 0.125 Mg SL PRN Q4-6HRS PRN Isosorbide Mononitrate Er (Isosorbide Mononitrate) 30 Mg Tab.er.24h 1 Tab PO DAILY 30 Days Lidocaine PATCH (Lidocaine) 1 Each Adh..patch 1 Patch TD DAILY 30 Days Cyclobenzaprine Hcl 10 Mg Tablet 10 Mg PO PRN Q6HRS PRN 10 Days Reported Amlodipine Besylate 10 Mg Tablet 10 Mg PO DAILY Hydralazine Hcl 50 Mg Tablet 1 Tab PO TID Carvedilol 25 Mg Tablet 25 Mg PO BIDWMEALS Promethazine Hcl 25 Mg Tablet 1 Tab PO PRN Q6HRS Miralax (Polyethylene Glycol 3350) 17 Gm Powd.pack 1 Packet PO BID Lantus (Insulin Glargine,Hum.rec.anlog) 100 Unit/1 Ml Vial 25 Unit SQ QHS Novolog (Insulin Aspart) 100 Unit/1 Ml Cartridge 4 Unit SQ TID Lexapro (Escitalopram Oxalate) 20 Mg Tablet 1 Tab PO DAILY Pantoprazole Sodium (Pantoprazole Sodium) 40 Mg Tablet.dr 1 Tab PO DAILY Dicyclomine Hcl 10 Mg Capsule 1 Cap PO TID Allergies Allergies: Coded Allergies: ondansetron (Verified Allergy, Severe, edema, 07/12/19) ketorolac (Verified Allergy, Intermediate, hives, 07/12/19) morphine (Verified Allergy, Intermediate, hives, 07/12/19) Vitals VITALS Vital Signs Date Time Temp Pulse Resp B/P (MAP) Pulse Ox O2 Delivery O2 Flow Rate FiO2 03/10/20 10:30 98.5 81 20 208/109 (142) 99 Room Air 98.5 Labs Labs Laboratory Tests Test 03/10/20 07:50 03/10/20 11:59 White Blood Count 7.7 x10^3/uL (4.0-11.0) Red Blood Count 4.00 x10^6/uL (3.50-5.40) Hemoglobin 12.1 g/dL (12.0-15.5) Hematocrit 36.1 % (36.0-47.0) Mean Corpuscular Volume 90 fL (79-100) Mean Corpuscular Hemoglobin 30 pg (25-35) Mean Corpuscular Hemoglobin Concent 34 g/dL (31-37) Red Cell Distribution Width 16.5 % (11.5-14.5) Platelet Count 313 x10^3/uL (140-400) Neutrophils (%) (Auto) 69 % (31-73) Lymphocytes (%) (Auto) 24 % (24-48) Monocytes (%) (Auto) 4 % (0-9) Eosinophils (%) (Auto) 2 % (0-3) Basophils (%) (Auto) 1 % (0-3) Neutrophils # (Auto) 5.3 x10^3/uL (1.8-7.7) Lymphocytes # (Auto) 1.8 x10^3/uL (1.0-4.8) Monocytes # (Auto) 0.3 x10^3/uL (0.0-1.1) Eosinophils # (Auto) 0.2 x10^3/uL (0.0-0.7) Basophils # (Auto) 0.1 x10^3/uL (0.0-0.2) Prothrombin Time 13.3 SEC (11.7-14.0) Prothromb Time International Ratio 1.1 (0.8-1.1) Activated Partial Thromboplast Time 40 SEC (24-38) Sodium Level 142 mmol/L (136-145) Potassium Level 4.1 mmol/L (3.5-5.1) Chloride Level 107 mmol/L (98-107) Carbon Dioxide Level 22 mmol/L (21-32) Anion Gap 13 (6-14) Blood Urea Nitrogen 33 mg/dL (7-20) Creatinine 4.4 mg/dL (0.6-1.0) Estimated GFR (Cockcroft-Gault) 14.1 BUN/Creatinine Ratio 8 (6-20) Glucose Level 135 mg/dL (70-99) Calcium Level 8.9 mg/dL (8.5-10.1) Magnesium Level 1.9 mg/dL (1.8-2.4) Total Bilirubin 0.2 mg/dL (0.2-1.0) Aspartate Amino Transf (AST/SGOT) 16 U/L (15-37) Alanine Aminotransferase (ALT/SGPT) 10 U/L (14-59) Alkaline Phosphatase 95 U/L (46-116) Total Protein 7.4 g/dL (6.4-8.2) Albumin 3.3 g/dL (3.4-5.0) Albumin/Globulin Ratio 0.8 (1.0-1.7) Triglycerides Level 153 mg/dL (0-150) Lipase 493 U/L (73-393) Serum Test, Qualitative Negative (NEG) Ethyl Alcohol Level < 10 mg/dL (0-10) Glucose (Fingerstick) 108 mg/dL (70-99) Laboratory Tests Test 03/10/20 07:50 03/10/20 11:59 White Blood Count 7.7 x10^3/uL (4.0-11.0) Red Blood Count 4.00 x10^6/uL (3.50-5.40) Hemoglobin 12.1 g/dL (12.0-15.5) Hematocrit 36.1 % (36.0-47.0) Mean Corpuscular Volume 90 fL (79-100) Mean Corpuscular Hemoglobin 30 pg (25-35) Mean Corpuscular Hemoglobin Concent 34 g/dL (31-37) Red Cell Distribution Width 16.5 % (11.5-14.5) Platelet Count 313 x10^3/uL (140-400) Neutrophils (%) (Auto) 69 % (31-73) Lymphocytes (%) (Auto) 24 % (24-48) Monocytes (%) (Auto) 4 % (0-9) Eosinophils (%) (Auto) 2 % (0-3) Basophils (%) (Auto) 1 % (0-3) Neutrophils # (Auto) 5.3 x10^3/uL (1.8-7.7) Lymphocytes # (Auto) 1.8 x10^3/uL (1.0-4.8) Monocytes # (Auto) 0.3 x10^3/uL (0.0-1.1) Eosinophils # (Auto) 0.2 x10^3/uL (0.0-0.7) Basophils # (Auto) 0.1 x10^3/uL (0.0-0.2) Prothrombin Time 13.3 SEC (11.7-14.0) Prothromb Time International Ratio 1.1 (0.8-1.1) Activated Partial Thromboplast Time 40 SEC (24-38) Sodium Level 142 mmol/L (136-145) Potassium Level 4.1 mmol/L (3.5-5.1) Chloride Level 107 mmol/L (98-107) Carbon Dioxide Level 22 mmol/L (21-32) Anion Gap 13 (6-14) Blood Urea Nitrogen 33 mg/dL (7-20) Creatinine 4.4 mg/dL (0.6-1.0) Estimated GFR (Cockcroft-Gault) 14.1 BUN/Creatinine Ratio 8 (6-20) Glucose Level 135 mg/dL (70-99) Calcium Level 8.9 mg/dL (8.5-10.1) Magnesium Level 1.9 mg/dL (1.8-2.4) Total Bilirubin 0.2 mg/dL (0.2-1.0) Aspartate Amino Transf (AST/SGOT) 16 U/L (15-37) Alanine Aminotransferase (ALT/SGPT) 10 U/L (14-59) Alkaline Phosphatase 95 U/L (46-116) Total Protein 7.4 g/dL (6.4-8.2) Albumin 3.3 g/dL (3.4-5.0) Albumin/Globulin Ratio 0.8 (1.0-1.7) Triglycerides Level 153 mg/dL (0-150) Lipase 493 U/L (73-393) Serum Test, Qualitative Negative (NEG) Ethyl Alcohol Level < 10 mg/dL (0-10) Glucose (Fingerstick) 108 mg/dL (70-99) Assessment/Plan Assessment/Plan Assessment: 34y with abd pain thought to be 2/2 SBO Recommendations: 1.) Abd pain likely related to SBO, u/s at this time does not appear to be necessary, may consider if no clinical improvement 2.) Free fluid does not appear to be infectious fluid collection, most likely physiologic, no intervention or additional eval necessary 3.) SBO based on imagining, GI and Gen Surg consulted 4.) HTN h/o poor control, in crisis, Cardiology consulted 5.) ESRD stage IV, on dialysis, nephrology consulted 6.) N/V still present 7.) DM type I labial, managed by primary team 8.) H/o pancreatitis 9.) Will continue to follow LYLY RAYMOND MD Mar 10, 2020 13:09
--- NOTE | 2020-03-10 13:22 | RAD ---
AP chest. HISTORY: Post central line placement AP view was taken of the chest. There is a new right jugular central line extending to the right atrium. There is no pneumothorax. There are no acute infiltrates. There is no effusion. IMPRESSION: 1. No acute chest disease. 2. Central line to right atrium. Electronically signed by: Cooper Geiger MD (03/10/2020 1:19 PM) [id number]
[2020-03-10] MEDS: PROCHLORPERAZINE 10 MG/2 ML VIAL. IV PRN ×2 (13:30→19:55)
[2020-03-10] MEDS: PANTOPRAZOLE IV PUSH 40 MG VIAL. IVP SCH (13:30)
--- NOTE | 2020-03-10 13:54 | EKG ---
[facility] [address] [place] [address] Test Date: 2020-03-10 Test Time: 10:13:33 Pat Name: JOSIAH CALZADA Department: Room: Gender: F Packaging Designer: : [id number] Requested By: LYLY ART Order Number: [id number] Reading MD: Measurements Intervals [place] Rate: 80 P: 60 [place]: 154 QRS: 39 QRSD: 78 T: 65 QT: 358 QTc: 416 Interpretive Statements SINUS RHYTHM NO SPECIFIC ECG ABNORMALITIES RI6.01 No previous ECG available for comparison
--- NOTE | 2020-03-10 14:50 | PDOC2 ---
RAFITA CONLEY ENGINEERING ADMINISTRATOR 03/10/20 1450: CONSULT Date of Consult Date of Consult DATE: 03/10/20 TIME: 14:40 Reason for Consult Reason for Consult: SBO Referring Physician Referring Physician: Dr Solano Identification/Chief Complaint Chief Complaint abdominal pain Source Source: Chart review, Patient History of Present Illness Reason for Visit: Multiple doses of Im medication--I can barely get pt to open eyes, she does not respond to any questions, moans occasionally D/w nurse--recently at for pancreatitis, hx of gastroparesis Hemodialysis --however has not received treatment since 03/01 Now with pain, vomiting, nurse reports she was having small stools at home Past Medical History Cardiovascular: HTN, Hyperlipidemia GI: GERD Psych: Anxiety, Depression Renal/: Chronic renal failure (ESRD on HD) Endocrine: Diabetes Past Surgical History Past Surgical History: Cholecystectomy, Other (cholecystectomy, tubal ligation, LUE fistula) Family History Family History: Hypertension Social History <1 pack per day ALCOHOL: occassional Drugs: Marijuana Lives: with Family Current Problem List Problem List Problems Medical Problems: (1) Abdominal pain Status: Acute (2) Chronic abdominal pain Status: Acute (3) ESRD (end stage renal disease) on dialysis Status: Acute (4) Hypertensive urgency Status: Acute (5) Small bowel obstruction Status: Acute Current Medications Current Medications Current Medications Fentanyl Citrate (Fentanyl 2ml Vial) 50 mcg 1X ONCE IVP ; Start 03/10/20 at 07:45; Stop 03/10/20 at 07:40; Status DC Famotidine (Pepcid Vial) 20 mg 1X ONCE IVP ; Start 03/10/20 at 07:45; Stop 03/10/20 at 07:40; Status DC Metoclopramide HCl (Reglan Vial) 10 mg 1X ONCE IVP ; Start 03/10/20 at 07:45; Stop 03/10/20 at 07:40; Status DC Hyoscyamine (Anaspaz) 0.125 mg 1X ONCE PO Last administered on 03/10/20at 07:57; Start 03/10/20 at 08:00; Stop 03/10/20 at 08:01; Status DC Fentanyl Citrate (Fentanyl 2ml Vial) 75 mcg 1X ONCE IM Last administered on 03/10/20at 07:57; Start 03/10/20 at 08:00; Stop 03/10/20 at 08:01; Status DC Metoclopramide HCl (Reglan Vial) 10 mg 1X ONCE IM Last administered on 03/10/20at 07:56; Start 03/10/20 at 08:00; Stop 03/10/20 at 08:01; Status DC Famotidine (Pepcid) 20 mg 1X ONCE PO Last administered on 03/10/20at 07:57; Start 03/10/20 at 08:00; Stop 03/10/20 at 08:01; Status DC Clonidine HCl (Catapres) 0.1 mg 1X ONCE PO Last administered on 03/10/20at 08:41; Start 03/10/20 at 08:30; Stop 03/10/20 at 08:50; Status DC Hydromorphone HCl (Dilaudid) 1 mg 1X ONCE IM Last administered on 03/10/20at 09:41; Start 03/10/20 at 09:00; Stop 03/10/20 at 09:01; Status DC Prochlorperazine Edisylate (Compazine) 10 mg 1X ONCE IM Last administered on 03/10/20at 09:39; Start 03/10/20 at 09:00; Stop 03/10/20 at 09:01; Status DC Clonidine HCl (Catapres Tts-2) 1 patch 1X ONCE TD Last administered on 03/10/20at 09:35; Start 03/10/20 at 09:00; Stop 03/10/20 at 09:01; Status DC Insulin Human Lispro (HumaLOG) 0-5 UNITS TIDWMEALS SQ ; Start 03/10/20 at 12:00 Dextrose (Dextrose 50%-Water Syringe) 12.5 gm PRN Q15MIN PRN IV SEE COMMENTS; Start 03/10/20 at 09:00 Lidocaine (Lidoderm) 1 patch DAILY TD Last administered on 03/10/20at 12:02; Start 03/10/20 at 10:30 Miscellaneous (Lidoderm Patch Removal) 1 ea QHS ; Start 03/10/20 at 21:00 Acetaminophen (Tylenol Supp) 650 mg PRN Q4HRS PRN IA TEMP OVER 100.4F OR MILD PAIN; Start 03/10/20 at 10:30 Albuterol/ Ipratropium (Duoneb) 3 ml Q4HRS NEB ; Start 03/10/20 at 12:00; Stop 03/10/20 at 11:59; Status DC Hydralazine HCl (Apresoline Inj) 10 mg PRN Q4HRS PRN IVP ELEVATED BP, SEE COMMENTS; Start 03/10/20 at 10:30; Stop 03/10/20 at 12:03; Status DC Labetalol HCl (Normodyne Iv Push) 20 mg PRN Q2HR PRN IVP HYPERTENSION; Start 03/10/20 at 12:00 Fentanyl Citrate (Fentanyl 2ml Vial) 50 mcg PRN Q3HRS PRN IVP PAIN; Start 03/10/20 at 12:00 Promethazine HCl (Phenergan Supp) 25 mg PRN Q6HRS PRN IA NAUSEA/VOMITING; Start 03/10/20 at 12:00 Albuterol Sulfate (Ventolin Neb Soln) 2.5 mg PRN Q4HRS PRN NEB SHORTNESS OF BREATH; Start 03/10/20 at 12:15 Hydralazine HCl (Apresoline Inj) 20 mg PRN Q4HRS PRN IVP ELEVATED BP, SEE COMMENTS; Start 03/10/20 at 12:15 Pantoprazole Sodium (PROTONIX VIAL for IV PUSH) 40 mg DAILYAC IVP Last administered on 03/10/20at 13:30; Start 03/10/20 at 13:00 Fentanyl Citrate (Fentanyl 2ml Vial) 75 mcg 1X ONCE IM Last administered on 03/10/20at 13:29; Start 03/10/20 at 12:30; Stop 03/10/20 at 12:31; Status DC Prochlorperazine Edisylate (Compazine) 10 mg PRN Q6HRS PRN IV NAUSEA/VOMITING Last administered on 03/10/20at 13:30; Start 03/10/20 at 13:30 Active Scripts Active Orphenadrine Citrate 100 Mg Tablet.er 1 Tab PO BID PRN 10 Days Reglan (Metoclopramide Hcl) 10 Mg Tablet 1 Tab PO QID PRN 5 Days before food and bedtime Promethazine Hcl 12.5 Mg Tablet 12.5 Mg PO Q6H PRN Levsin-Sl (Hyoscyamine Sulfate) 0.125 Mg Tab.subl 0.125 Mg SL PRN Q4-6HRS PRN Isosorbide Mononitrate Er (Isosorbide Mononitrate) 30 Mg Tab.er.24h 1 Tab PO DAILY 30 Days Lidocaine PATCH (Lidocaine) 1 Each Adh..patch 1 Patch TD DAILY 30 Days Cyclobenzaprine Hcl 10 Mg Tablet 10 Mg PO PRN Q6HRS PRN 10 Days Reported Amlodipine Besylate 10 Mg Tablet 10 Mg PO DAILY Hydralazine Hcl 50 Mg Tablet 1 Tab PO TID Carvedilol 25 Mg Tablet 25 Mg PO BIDWMEALS Promethazine Hcl 25 Mg Tablet 1 Tab PO PRN Q6HRS Miralax (Polyethylene Glycol 3350) 17 Gm Powd.pack 1 Packet PO BID Lantus (Insulin Glargine,Hum.rec.anlog) 100 Unit/1 Ml Vial 25 Unit SQ QHS Novolog (Insulin Aspart) 100 Unit/1 Ml Cartridge 4 Unit SQ TID Lexapro (Escitalopram Oxalate) 20 Mg Tablet 1 Tab PO DAILY Pantoprazole Sodium (Pantoprazole Sodium) 40 Mg Tablet.dr 1 Tab PO DAILY Dicyclomine Hcl 10 Mg Capsule 1 Cap PO TID Allergies Allergies: Coded Allergies: ondansetron (Verified Allergy, Severe, edema, 07/12/19) ketorolac (Verified Allergy, Intermediate, hives, 07/12/19) morphine (Verified Allergy, Intermediate, hives, 07/12/19) ROS Review of System unable to obtain due to mentation Physical Exam General: Other (very sedated, barely opens eyes on exam) Lungs: Clear to auscultation, Normal air movement Heart: Regular rate, Normal S1, Normal S2 Abdomen: Normal bowel sounds, Soft, Other (moans on exam) Extremities: No clubbing, No cyanosis Skin: No rashes, No breakdown Vitals VITALS Vital Signs Date Time Temp Pulse Resp B/P (MAP) Pulse Ox O2 Delivery O2 Flow Rate FiO2 03/10/20 10:30 98.5 81 20 208/109 (142) 99 Room Air 98.5 Labs Labs Laboratory Tests Test 03/10/20 07:50 03/10/20 11:59 White Blood Count 7.7 x10^3/uL (4.0-11.0) Red Blood Count 4.00 x10^6/uL (3.50-5.40) Hemoglobin 12.1 g/dL (12.0-15.5) Hematocrit 36.1 % (36.0-47.0) Mean Corpuscular Volume 90 fL (79-100) Mean Corpuscular Hemoglobin 30 pg (25-35) Mean Corpuscular Hemoglobin Concent 34 g/dL (31-37) Red Cell Distribution Width 16.5 % (11.5-14.5) Platelet Count 313 x10^3/uL (140-400) Neutrophils (%) (Auto) 69 % (31-73) Lymphocytes (%) (Auto) 24 % (24-48) Monocytes (%) (Auto) 4 % (0-9) Eosinophils (%) (Auto) 2 % (0-3) Basophils (%) (Auto) 1 % (0-3) Neutrophils # (Auto) 5.3 x10^3/uL (1.8-7.7) Lymphocytes # (Auto) 1.8 x10^3/uL (1.0-4.8) Monocytes # (Auto) 0.3 x10^3/uL (0.0-1.1) Eosinophils # (Auto) 0.2 x10^3/uL (0.0-0.7) Basophils # (Auto) 0.1 x10^3/uL (0.0-0.2) Prothrombin Time 13.3 SEC (11.7-14.0) Prothromb Time International Ratio 1.1 (0.8-1.1) Activated Partial Thromboplast Time 40 SEC (24-38) Sodium Level 142 mmol/L (136-145) Potassium Level 4.1 mmol/L (3.5-5.1) Chloride Level 107 mmol/L (98-107) Carbon Dioxide Level 22 mmol/L (21-32) Anion Gap 13 (6-14) Blood Urea Nitrogen 33 mg/dL (7-20) Creatinine 4.4 mg/dL (0.6-1.0) Estimated GFR (Cockcroft-Gault) 14.1 BUN/Creatinine Ratio 8 (6-20) Glucose Level 135 mg/dL (70-99) Calcium Level 8.9 mg/dL (8.5-10.1) Magnesium Level 1.9 mg/dL (1.8-2.4) Total Bilirubin 0.2 mg/dL (0.2-1.0) Aspartate Amino Transf (AST/SGOT) 16 U/L (15-37) Alanine Aminotransferase (ALT/SGPT) 10 U/L (14-59) Alkaline Phosphatase 95 U/L (46-116) Total Protein 7.4 g/dL (6.4-8.2) Albumin 3.3 g/dL (3.4-5.0) Albumin/Globulin Ratio 0.8 (1.0-1.7) Triglycerides Level 153 mg/dL (0-150) Lipase 493 U/L (73-393) Serum Test, Qualitative Negative (NEG) Ethyl Alcohol Level < 10 mg/dL (0-10) Glucose (Fingerstick) 108 mg/dL (70-99) Laboratory Tests Test 03/10/20 07:50 03/10/20 11:59 White Blood Count 7.7 x10^3/uL (4.0-11.0) Red Blood Count 4.00 x10^6/uL (3.50-5.40) Hemoglobin 12.1 g/dL (12.0-15.5) Hematocrit 36.1 % (36.0-47.0) Mean Corpuscular Volume 90 fL (79-100) Mean Corpuscular Hemoglobin 30 pg (25-35) Mean Corpuscular Hemoglobin Concent 34 g/dL (31-37) Red Cell Distribution Width 16.5 % (11.5-14.5) Platelet Count 313 x10^3/uL (140-400) Neutrophils (%) (Auto) 69 % (31-73) Lymphocytes (%) (Auto) 24 % (24-48) Monocytes (%) (Auto) 4 % (0-9) Eosinophils (%) (Auto) 2 % (0-3) Basophils (%) (Auto) 1 % (0-3) Neutrophils # (Auto) 5.3 x10^3/uL (1.8-7.7) Lymphocytes # (Auto) 1.8 x10^3/uL (1.0-4.8) Monocytes # (Auto) 0.3 x10^3/uL (0.0-1.1) Eosinophils # (Auto) 0.2 x10^3/uL (0.0-0.7) Basophils # (Auto) 0.1 x10^3/uL (0.0-0.2) Prothrombin Time 13.3 SEC (11.7-14.0) Prothromb Time International Ratio 1.1 (0.8-1.1) Activated Partial Thromboplast Time 40 SEC (24-38) Sodium Level 142 mmol/L (136-145) Potassium Level 4.1 mmol/L (3.5-5.1) Chloride Level 107 mmol/L (98-107) Carbon Dioxide Level 22 mmol/L (21-32) Anion Gap 13 (6-14) Blood Urea Nitrogen 33 mg/dL (7-20) Creatinine 4.4 mg/dL (0.6-1.0) Estimated GFR (Cockcroft-Gault) 14.1 BUN/Creatinine Ratio 8 (6-20) Glucose Level 135 mg/dL (70-99) Calcium Level 8.9 mg/dL (8.5-10.1) Magnesium Level 1.9 mg/dL (1.8-2.4) Total Bilirubin 0.2 mg/dL (0.2-1.0) Aspartate Amino Transf (AST/SGOT) 16 U/L (15-37) Alanine Aminotransferase (ALT/SGPT) 10 U/L (14-59) Alkaline Phosphatase 95 U/L (46-116) Total Protein 7.4 g/dL (6.4-8.2) Albumin 3.3 g/dL (3.4-5.0) Albumin/Globulin Ratio 0.8 (1.0-1.7) Triglycerides Level 153 mg/dL (0-150) Lipase 493 U/L (73-393) Serum Test, Qualitative Negative (NEG) Ethyl Alcohol Level < 10 mg/dL (0-10) Glucose (Fingerstick) 108 mg/dL (70-99) Assessment/Plan Assessment/Plan SBO vs ileus --bowel rest, NG, recheck films in AM--consider SBFT if not improving gastroparesis renal failure elevated lipase--recent pancreatitis, nothing significant on CT SOILA LUCAS MD 03/10/20 1611: CONSULT Assessment/Plan Assessment/Plan Agree with above RAFITA CONLEY APRN Mar 10, 2020 14:50 SOILA LUCAS MD Mar 10, 2020 16:11
[2020-03-10 15:00] VITALS: BP 207/105
[2020-03-10] MEDS: hydrALAZINE 20 MG/ML VIAL. IVP PRN (15:30)
[2020-03-10 16:01] LABS: BARBITURATES NEG (NEG); BENZODIAZEPINES NEG (NEG); CANNABINOIDS POS (NEG); COCAINE NEG (NEG); METHADONE NEG (NEG); OPIATES POS (NEG); PHENCYCLIDINE NEG (NEG)
[2020-03-10 16:09] LABS: AMPHETAMINE/METHAMPHETAMINE NEG (NEG)
[2020-03-10] MEDS: LABETALOL 20 MG/4 ML DISP.SYRIN. IVP PRN (16:13)
[2020-03-10 19:45] VITALS: BP 132/83
[2020-03-10] MEDS: PATCH REMOVAL. MC SCH (21:00)
[2020-03-10 23:00] VITALS: BP 147/88
[2020-03-11] MEDS: fentaNYL PF VIAL 100 MCG/2 ML VIAL IVP PRN (00:36)
[2020-03-11] MEDS: PROCHLORPERAZINE 10 MG/2 ML VIAL. IV PRN ×3 (01:45→20:52)
[2020-03-11 03:00] VITALS: BP 160/104
[2020-03-11 07:00] VITALS: BP 170/96
[2020-03-11] MEDS: PANTOPRAZOLE IV PUSH 40 MG VIAL. IVP SCH (07:45)
[2020-03-11] MEDS: LIDOCAINE (700MG/PATCH) PATCH. TD SCH (07:45)
[2020-03-11] MEDS: SCOPOLAMINE 1.5MG PATCH. TD SCH (07:45)
[2020-03-11] MEDS: INSULIN LISPRO 300 UNITS/3 ML VIAL. SQ SCH ×3 (08:00→17:00)
--- NOTE | 2020-03-11 08:10 | RAD ---
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 Informed consent was obtained. A timeout procedure was performed. All elements of maximal sterile barrier technique including the use of a cap, mask, sterile gown, sterile gloves, large sterile sheet, appropriate hand hygiene, and 2% chlorhexidine for cutaneous antisepsis (or acceptable alternative antiseptic per current guidelines) were followed for this procedure. The patient was prepped and draped in the usual sterile fashion. Ultrasound interrogation of the right neck revealed patency and compressibility of the right internal jugular vein. A 21-gauge micropuncture was then used to gain access to this vein under ultrasound guidance. A hard copy ultrasound image was recorded. A guidewire was advanced centrally. 5 [place] sheath was placed. Over a wire following dilatation, a triple-lumen central venous catheter was advanced centrally. Catheter was found to flush and aspirate normally. Follow-up chest radiograph demonstrates tip at the cavoatrial junction. Catheter secured in place and a sterile dressing was applied. No immediate complications were identified. Impression: Successful ultrasound-guided placement of right internal jugular triple-lumen central venous catheter
[2020-03-11 08:27] LABS: ALBUMIN/GLOBULIN RATIO 0.9 (1.0-1.7); CALCIUM 8.5 mg/dL (8.5-10.1); CREATININE 4.3 mg/dL (0.6-1.0); GFR 14.4; POTASSIUM 4.1 mmol/L (3.5-5.1); TOTAL BILIRUBIN 0.1 mg/dL (0.2-1.0); TOTAL PROTEIN 6.2 g/dL (6.4-8.2)
[2020-03-11 08:49] LABS: BASO % 1 % (0-3); EOS # 0.1 x10^3/uL (0.0-0.7); EOS % 2 % (0-3); HEMATOCRIT 30.7 % (36.0-47.0); HEMOGLOBIN 10.3 g/dL (12.0-15.5); LYMPH # 2.7 x10^3/uL (1.0-4.8); LYMPH % 34 % (24-48); MEAN CORPUSCULAR HEMOGLOBIN 31 pg (25-35); MEAN CORPUSCULAR HGB CONC 34 g/dL (31-37); MEAN CORPUSCULAR VOLUME 91 fL (79-100); MONO # 0.5 x10^3/uL (0.0-1.1); MONO % 6 % (0-9); NEUT # 4.5 x10^3/uL (1.8-7.7); NEUT % 58 % (31-73); PLATELET COUNT 279 x10^3/uL (140-400); RED BLOOD COUNT 3.37 x10^6/uL (3.50-5.40); RED CELL DISTRIBUTION WIDTH 16.4 % (11.5-14.5); WHITE BLOOD COUNT 7.9 x10^3/uL (4.0-11.0)
--- NOTE | 2020-03-11 09:40 | PDOC ---
RAFITA CONLEY OUTSOLE SCHEDULER 03/11/20 0939: SURGICAL PROGRESS NOTE Subjective seen in dialysis emesis x 1 overnight some flatus lower abd/flank pain Vital Signs Vital Signs Date Time Temp Pulse Resp B/P (MAP) Pulse Ox O2 Delivery O2 Flow Rate FiO2 03/11/20 07:00 98.5 95 16 170/96 (120) 98 Room Air 98.5 I&O Intake and Output 03/11/20 06:59 Intake Total 0 ml Output Total 350 ml Balance -350 ml Intake Oral 0 ml Output Urine Total 350 ml # Voids 1 General: Cooperative, No acute distress Abdomen: Soft, Other (ND, NTTP) Labs Laboratory Tests Test 03/10/20 07:50 03/10/20 11:59 03/10/20 15:10 03/10/20 17:08 White Blood Count 7.7 x10^3/uL (4.0-11.0) Red Blood Count 4.00 x10^6/uL (3.50-5.40) Hemoglobin 12.1 g/dL (12.0-15.5) Hematocrit 36.1 % (36.0-47.0) Mean Corpuscular Volume 90 fL (79-100) Mean Corpuscular Hemoglobin 30 pg (25-35) Mean Corpuscular Hemoglobin Concent 34 g/dL (31-37) Red Cell Distribution Width 16.5 % (11.5-14.5) Platelet Count 313 x10^3/uL (140-400) Neutrophils (%) (Auto) 69 % (31-73) Lymphocytes (%) (Auto) 24 % (24-48) Monocytes (%) (Auto) 4 % (0-9) Eosinophils (%) (Auto) 2 % (0-3) Basophils (%) (Auto) 1 % (0-3) Neutrophils # (Auto) 5.3 x10^3/uL (1.8-7.7) Lymphocytes # (Auto) 1.8 x10^3/uL (1.0-4.8) Monocytes # (Auto) 0.3 x10^3/uL (0.0-1.1) Eosinophils # (Auto) 0.2 x10^3/uL (0.0-0.7) Basophils # (Auto) 0.1 x10^3/uL (0.0-0.2) Prothrombin Time 13.3 SEC (11.7-14.0) Prothromb Time International Ratio 1.1 (0.8-1.1) Activated Partial Thromboplast Time 40 SEC (24-38) Sodium Level 142 mmol/L (136-145) Potassium Level 4.1 mmol/L (3.5-5.1) Chloride Level 107 mmol/L (98-107) Carbon Dioxide Level 22 mmol/L (21-32) Anion Gap 13 (6-14) Blood Urea Nitrogen 33 mg/dL (7-20) Creatinine 4.4 mg/dL (0.6-1.0) Estimated GFR (Cockcroft-Gault) 14.1 BUN/Creatinine Ratio 8 (6-20) Glucose Level 135 mg/dL (70-99) Calcium Level 8.9 mg/dL (8.5-10.1) Magnesium Level 1.9 mg/dL (1.8-2.4) Total Bilirubin 0.2 mg/dL (0.2-1.0) Aspartate Amino Transf (AST/SGOT) 16 U/L (15-37) Alanine Aminotransferase (ALT/SGPT) 10 U/L (14-59) Alkaline Phosphatase 95 U/L (46-116) Total Protein 7.4 g/dL (6.4-8.2) Albumin 3.3 g/dL (3.4-5.0) Albumin/Globulin Ratio 0.8 (1.0-1.7) Triglycerides Level 153 mg/dL (0-150) Lipase 493 U/L (73-393) Serum Test, Qualitative Negative (NEG) Ethyl Alcohol Level < 10 mg/dL (0-10) Hepatitis B Surface Antigen Nonreactive (Nonreactive) Hepatitis B Surface Antibody Reactive Glucose (Fingerstick) 108 mg/dL (70-99) 114 mg/dL (70-99) Urine Opiates Screen Pos (NEG) Urine Methadone Screen Neg (NEG) Urine Barbiturates Neg (NEG) Urine Phencyclidine Screen Neg (NEG) Urine Amphetamine/Methamphetamine Neg (NEG) Urine Benzodiazepines Screen Neg (NEG) Urine Cocaine Screen Neg (NEG) Urine Cannabinoids Screen Pos (NEG) Urine Ethyl Alcohol Neg (NEG) Test 03/11/20 00:39 03/11/20 05:00 03/11/20 06:27 Glucose (Fingerstick) 93 mg/dL (70-99) 108 mg/dL (70-99) White Blood Count 7.9 x10^3/uL (4.0-11.0) Red Blood Count 3.37 x10^6/uL (3.50-5.40) Hemoglobin 10.3 g/dL (12.0-15.5) Hematocrit 30.7 % (36.0-47.0) Mean Corpuscular Volume 91 fL (79-100) Mean Corpuscular Hemoglobin 31 pg (25-35) Mean Corpuscular Hemoglobin Concent 34 g/dL (31-37) Red Cell Distribution Width 16.4 % (11.5-14.5) Platelet Count 279 x10^3/uL (140-400) Neutrophils (%) (Auto) 58 % (31-73) Lymphocytes (%) (Auto) 34 % (24-48) Monocytes (%) (Auto) 6 % (0-9) Eosinophils (%) (Auto) 2 % (0-3) Basophils (%) (Auto) 1 % (0-3) Neutrophils # (Auto) 4.5 x10^3/uL (1.8-7.7) Lymphocytes # (Auto) 2.7 x10^3/uL (1.0-4.8) Monocytes # (Auto) 0.5 x10^3/uL (0.0-1.1) Eosinophils # (Auto) 0.1 x10^3/uL (0.0-0.7) Basophils # (Auto) 0.0 x10^3/uL (0.0-0.2) Sodium Level 144 mmol/L (136-145) Potassium Level 4.1 mmol/L (3.5-5.1) Chloride Level 109 mmol/L (98-107) Carbon Dioxide Level 23 mmol/L (21-32) Anion Gap 12 (6-14) Blood Urea Nitrogen 30 mg/dL (7-20) Creatinine 4.3 mg/dL (0.6-1.0) Estimated GFR (Cockcroft-Gault) 14.4 BUN/Creatinine Ratio 7 (6-20) Glucose Level 84 mg/dL (70-99) Calcium Level 8.5 mg/dL (8.5-10.1) Total Bilirubin 0.1 mg/dL (0.2-1.0) Aspartate Amino Transf (AST/SGOT) 16 U/L (15-37) Alanine Aminotransferase (ALT/SGPT) 13 U/L (14-59) Alkaline Phosphatase 81 U/L (46-116) Total Protein 6.2 g/dL (6.4-8.2) Albumin 3.0 g/dL (3.4-5.0) Albumin/Globulin Ratio 0.9 (1.0-1.7) Laboratory Tests Test 03/10/20 11:59 03/10/20 15:10 03/10/20 17:08 03/11/20 00:39 Glucose (Fingerstick) 108 mg/dL (70-99) 114 mg/dL (70-99) 93 mg/dL (70-99) Urine Opiates Screen Pos (NEG) Urine Methadone Screen Neg (NEG) Urine Barbiturates Neg (NEG) Urine Phencyclidine Screen Neg (NEG) Urine Amphetamine/Methamphetamine Neg (NEG) Urine Benzodiazepines Screen Neg (NEG) Urine Cocaine Screen Neg (NEG) Urine Cannabinoids Screen Pos (NEG) Urine Ethyl Alcohol Neg (NEG) Test 03/11/20 05:00 03/11/20 06:27 White Blood Count 7.9 x10^3/uL (4.0-11.0) Red Blood Count 3.37 x10^6/uL (3.50-5.40) Hemoglobin 10.3 g/dL (12.0-15.5) Hematocrit 30.7 % (36.0-47.0) Mean Corpuscular Volume 91 fL (79-100) Mean Corpuscular Hemoglobin 31 pg (25-35) Mean Corpuscular Hemoglobin Concent 34 g/dL (31-37) Red Cell Distribution Width 16.4 % (11.5-14.5) Platelet Count 279 x10^3/uL (140-400) Neutrophils (%) (Auto) 58 % (31-73) Lymphocytes (%) (Auto) 34 % (24-48) Monocytes (%) (Auto) 6 % (0-9) Eosinophils (%) (Auto) 2 % (0-3) Basophils (%) (Auto) 1 % (0-3) Neutrophils # (Auto) 4.5 x10^3/uL (1.8-7.7) Lymphocytes # (Auto) 2.7 x10^3/uL (1.0-4.8) Monocytes # (Auto) 0.5 x10^3/uL (0.0-1.1) Eosinophils # (Auto) 0.1 x10^3/uL (0.0-0.7) Basophils # (Auto) 0.0 x10^3/uL (0.0-0.2) Sodium Level 144 mmol/L (136-145) Potassium Level 4.1 mmol/L (3.5-5.1) Chloride Level 109 mmol/L (98-107) Carbon Dioxide Level 23 mmol/L (21-32) Anion Gap 12 (6-14) Blood Urea Nitrogen 30 mg/dL (7-20) Creatinine 4.3 mg/dL (0.6-1.0) Estimated GFR (Cockcroft-Gault) 14.4 BUN/Creatinine Ratio 7 (6-20) Glucose Level 84 mg/dL (70-99) Calcium Level 8.5 mg/dL (8.5-10.1) Total Bilirubin 0.1 mg/dL (0.2-1.0) Aspartate Amino Transf (AST/SGOT) 16 U/L (15-37) Alanine Aminotransferase (ALT/SGPT) 13 U/L (14-59) Alkaline Phosphatase 81 U/L (46-116) Total Protein 6.2 g/dL (6.4-8.2) Albumin 3.0 g/dL (3.4-5.0) Albumin/Globulin Ratio 0.9 (1.0-1.7) Glucose (Fingerstick) 108 mg/dL (70-99) Problem List Problems Medical Problems: (1) Abdominal pain Status: Acute (2) Chronic abdominal pain Status: Acute (3) ESRD (end stage renal disease) on dialysis Status: Acute (4) Hypertensive urgency Status: Acute (5) Small bowel obstruction Status: Acute Assessment/Plan will check SBFT to eval for any obstructive process Justicifation of Admission Dx: Justifications for Admission: Justification of Admission Dx: Yes SOILA LUCAS MD 03/11/20 1117: SURGICAL PROGRESS NOTE Assessment/Plan Agree with above RAFITA CONLEY APRN Mar 11, 2020 09:39 SOILA LUCAS MD Mar 11, 2020 11:17
[2020-03-11] MEDS ORDERED: IOHEXOL 300 MG/ML 100ML VIAL. PO ONE (09:45)
[2020-03-11] MEDS ORDERED: CONTRAST GIVEN. MC PRN (10:00)
--- NOTE | 2020-03-11 10:02 | PDOC ---
SUBJECTIVE ROS Vomiting x 1 overnight,lower abd pain OBJECTIVE Vital Signs Vital Signs Date Time Temp Pulse Resp B/P (MAP) Pulse Ox O2 Delivery O2 Flow Rate FiO2 03/11/20 07:00 98.5 95 16 170/96 (120) 98 Room Air 98.5 I & 0 Intake and Output 03/11/20 07:00 Intake Total 0 ml Output Total 350 ml Balance -350 ml Intake Oral 0 ml Output Urine Total 350 ml # Voids 1 PHYSICAL EXAM Physical Exam GEN: NAD HEEN: OM moist NECK: supple CVS: S1S2 RESP: CTA, No Acc. Muscle Use GI: : No CVA tenderness, No Suprapubic Tenderness, No choi NEUR--Grossly normal SKIN No rash EXT No LE edema, has TDC DIAGNOSIS/ASSESSMENT Assessment & Plan ESRD - On HD TTS Last HD was on March 01 x for 1 hr at OP Unit , Seen on HD , tolerating well, continue as ordered , George Ordoñez Hypertension - home antihypertensives Abdominal pain- SBO/Ileus on CT scan per GS- SBFT today Gastroparesis- 2/2 DM DM- per primary Hx of Marijuana use- Positive in october Anemia - Hgb stable, No indication for ZORAIDA COMMENT/RELEVANT DATA Meds Current Medications Medications (Trade) Dose Ordered Sig/Brown Start Time Stop Time Status Last Admin Dose Admin Acetaminophen (Tylenol Supp) 650 mg PRN Q4HRS PRN 03/10/20 10:30 Albuterol Sulfate (Ventolin Neb Soln) 2.5 mg PRN Q4HRS PRN 03/10/20 12:15 Albuterol/ Ipratropium (Duoneb) 3 ml Q4HRS 03/10/20 12:00 03/10/20 11:59 DC Clonidine HCl (Catapres Tts-2) 1 patch 1X ONCE 03/10/20 09:00 03/10/20 09:01 DC 03/10/20 09:35 1 PATCH Clonidine HCl (Catapres) 0.1 mg 1X ONCE 03/10/20 08:30 03/10/20 08:50 DC 03/10/20 08:41 0.1 MG Dextrose (Dextrose 50%-Water Syringe) 12.5 gm PRN Q15MIN PRN 03/10/20 09:00 Famotidine (Pepcid Vial) 20 mg 1X ONCE 03/10/20 07:45 03/10/20 07:40 DC Famotidine (Pepcid) 20 mg 1X ONCE 03/10/20 08:00 03/10/20 08:01 DC 03/10/20 07:57 20 MG Fentanyl Citrate (Fentanyl 2ml Vial) 50 mcg PRN Q2HRS PRN 03/11/20 06:45 Hydralazine HCl (Apresoline Inj) 20 mg PRN Q4HRS PRN 03/10/20 12:15 03/10/20 15:30 20 MG Hydromorphone HCl (Dilaudid) 1 mg 1X ONCE 03/10/20 09:00 03/10/20 09:01 DC 03/10/20 09:41 1 MG Hyoscyamine (Anaspaz) 0.125 mg 1X ONCE 03/10/20 08:00 03/10/20 08:01 DC 03/10/20 07:57 0.125 MG Info (CONTRAST GIVEN -- Rx MONITORING) 1 each PRN DAILY PRN 03/11/20 10:00 03/13/20 09:59 Insulin Human Lispro (HumaLOG) 0-5 UNITS TIDWMEALS 03/10/20 12:00 Iohexol (Omnipaque 300 Mg/ml) 400 ml 1X ONCE 03/11/20 09:45 03/11/20 09:49 DC Labetalol HCl (Normodyne Iv Push) 20 mg PRN Q2HR PRN 03/10/20 12:00 03/10/20 16:13 20 MG Lidocaine (Lidoderm) 1 patch DAILY 03/10/20 10:30 03/11/20 07:45 1 PATCH Metoclopramide HCl (Reglan Vial) 10 mg 1X ONCE 03/10/20 08:00 03/10/20 08:01 DC 03/10/20 07:56 10 MG Miscellaneous (Lidoderm Patch Removal) 1 ea QHS 03/10/20 21:00 03/10/20 21:00 1 EA Nicardipine HCl 50 mg/Sodium Chloride 250 ml @ 25 mls/hr CONT PRN 03/10/20 16:00 03/11/20 02:11 25 MLS/HR Pantoprazole Sodium (PROTONIX VIAL for IV PUSH) 40 mg DAILYAC 03/10/20 13:00 03/11/20 07:45 40 MG Prochlorperazine Edisylate (Compazine) 10 mg PRN Q6HRS PRN 03/10/20 13:30 03/11/20 01:45 10 MG Promethazine HCl (Phenergan Supp) 25 mg PRN Q6HRS PRN 03/10/20 12:00 03/10/20 16:35 25 MG Scopolamine (Transderm-Scop) 1 patch Q3DAYS@0700 03/11/20 07:00 03/11/20 07:45 1 PATCH Lab Laboratory Tests Test 03/10/20 11:59 03/10/20 15:10 03/10/20 17:08 03/11/20 00:39 Glucose (Fingerstick) 108 mg/dL (70-99) 114 mg/dL (70-99) 93 mg/dL (70-99) Urine Opiates Screen Pos (NEG) Urine Methadone Screen Neg (NEG) Urine Barbiturates Neg (NEG) Urine Phencyclidine Screen Neg (NEG) Urine Amphetamine/Methamphetamine Neg (NEG) Urine Benzodiazepines Screen Neg (NEG) Urine Cocaine Screen Neg (NEG) Urine Cannabinoids Screen Pos (NEG) Urine Ethyl Alcohol Neg (NEG) Test 03/11/20 05:00 03/11/20 06:27 White Blood Count 7.9 x10^3/uL (4.0-11.0) Red Blood Count 3.37 x10^6/uL (3.50-5.40) Hemoglobin 10.3 g/dL (12.0-15.5) Hematocrit 30.7 % (36.0-47.0) Mean Corpuscular Volume 91 fL (79-100) Mean Corpuscular Hemoglobin 31 pg (25-35) Mean Corpuscular Hemoglobin Concent 34 g/dL (31-37) Red Cell Distribution Width 16.4 % (11.5-14.5) Platelet Count 279 x10^3/uL (140-400) Neutrophils (%) (Auto) 58 % (31-73) Lymphocytes (%) (Auto) 34 % (24-48) Monocytes (%) (Auto) 6 % (0-9) Eosinophils (%) (Auto) 2 % (0-3) Basophils (%) (Auto) 1 % (0-3) Neutrophils # (Auto) 4.5 x10^3/uL (1.8-7.7) Lymphocytes # (Auto) 2.7 x10^3/uL (1.0-4.8) Monocytes # (Auto) 0.5 x10^3/uL (0.0-1.1) Eosinophils # (Auto) 0.1 x10^3/uL (0.0-0.7) Basophils # (Auto) 0.0 x10^3/uL (0.0-0.2) Sodium Level 144 mmol/L (136-145) Potassium Level 4.1 mmol/L (3.5-5.1) Chloride Level 109 mmol/L (98-107) Carbon Dioxide Level 23 mmol/L (21-32) Anion Gap 12 (6-14) Blood Urea Nitrogen 30 mg/dL (7-20) Creatinine 4.3 mg/dL (0.6-1.0) Estimated GFR (Cockcroft-Gault) 14.4 BUN/Creatinine Ratio 7 (6-20) Glucose Level 84 mg/dL (70-99) Calcium Level 8.5 mg/dL (8.5-10.1) Total Bilirubin 0.1 mg/dL (0.2-1.0) Aspartate Amino Transf (AST/SGOT) 16 U/L (15-37) Alanine Aminotransferase (ALT/SGPT) 13 U/L (14-59) Alkaline Phosphatase 81 U/L (46-116) Total Protein 6.2 g/dL (6.4-8.2) Albumin 3.0 g/dL (3.4-5.0) Albumin/Globulin Ratio 0.9 (1.0-1.7) Glucose (Fingerstick) 108 mg/dL (70-99) Results All relevant outside records, renal labs, imaging studies, telemetry/EKG's were reviewed. Justicifation of Admission Dx: Justifications for Admission: Justification of Admission Dx: Yes MELLISSA DE MD Mar 11, 2020 10:02
[2020-03-11] MEDS: fentaNYL PF VIAL 100 MCG/2 ML VIAL IV PRN ×5 (10:06→20:52)
--- NOTE | 2020-03-11 10:08 | PDOC ---
PROGRESS NOTES Chief Complaint Chief Complaint VTE Prophylaxis Ordered VTE Prophylaxis Devices: Contraindicated VTE Pharmacological Prophylaxi: Yes Assessment/Plan Assessment/Plan Impression: Distended small bowel loops with transition suggested within the right lower quadrant. C/W ILEUS VS small bowel obstruction. Pelvic free fluid is present and of slightly higher density. While this may be physiologic, more significant processes NOT excluded. hypertensive urgency ESRD ON DIALYSIS HX HYPERTENSION with 2017 HX THC ABUSE tobacco abuse disorder 03/11 REFUSED NG LAST PM PLAN ADMIT CONSULT NEPHROLOGY IV HYDRALAZINE 10MG Q 4 HRS PRN BP SUPPORT GI CONSULT NPO IV PROTONIX CARDIOLOGY CONSULT ECHO SQ HEPARIN DVT PROPHYLAXIS NG TUBE 34 min cc time Justicifation of Admission Dx: Justifications for Admission: Justification of Admission Dx: Yes History of Present Illness History of Present Illness Identification/Chief Complaint Chief Complaint SEEN IN ER WITH SBO 34 year old female presents with 9-day history of worsening abdominal pain. admitted [facility] until 02/29/2020 with report of pancreatitis. hx ESRD on HD, DM, and gastroparesis. last dialysis on 03/01/2020. then, patient reports pain started. // has been unable to go to dialysis secondary to this pain. Reports she did not want to come back to the hospital and therefore tried to control the pain at home. reports associated nausea and vomiting. denies intake of poorly cooked food no alcohol use. Denies fever or chills or cough . Denies known exposure to COVID-19. Past Medical History Past Medical History Past Medical History Past Medical History: Diabetes-Type I, Hypertension, Kidney Infection, Pancreatitis, Renal Failure, Other Additional Past Medical Histor: GASTROPERESIS, DIALYSIS Past Surgical History: Cholecystectomy, Tubal ligation, Other Additional Past Surgical Histo: FISTULA LEFT ARM, SHUNT RIGHT CHEST Smoking Status: Current Every Day Smoker Alcohol Use: Occasionally Drug Use: None Vitals Vitals Vital Signs Date Time Temp Pulse Resp B/P (MAP) Pulse Ox O2 Delivery O2 Flow Rate FiO2 03/11/20 07:00 98.5 95 16 170/96 (120) 98 Room Air 98.5 Physical Exam General: Alert, Oriented X3, Cooperative, No acute distress Heart: Regular rate, Normal S1, Normal S2 Lungs: Clear Abdomen: Soft, No hepatosplenomegaly, Other Extremities: No cyanosis, Other (trace upper and lower extremity edema bilaterally ) Skin: No breakdown, No significant lesion Labs LABS PATIENT: JOSIAH CALAZDA NACCOUNT: [id number] : 1985 LOCATION: ER AGE: 34 SEX: F EXAM STATUS: REG ER ORD. PHYSICIAN: LYLY ART DO REASON: diffuse abdominal pain, hx of pancreatitis PROCEDURE: CT ABDOMEN PELVIS WO CONTRAST Examination: CT ABDOMEN PELVIS WO CONTRAST History: Reason: diffuse abdominal pain, hx of pancreatitis / Spl. Instructions: / History: Comparison/Correlation: 12/31/2019 CT abdomen and pelvis without contrast Findings: Axial images of the abdomen and pelvis were obtained without contrast. Sagittal and coronal reformatted images were provided. Linear atelectasis or scarring right middle lobe is minimal. Cholecystectomy noted. Liver, spleen, right adrenal gland, and kidneys are unremarkable. Left adrenal gland adenoma again is seen measuring up to 1.9 cm diameter. No extraluminal gas or obstruction. No enlarged abdominal or pelvic lymph nodes. Minimal right flank edema or ascites is present. Small amount of pelvic free fluid is present with Hounsfield units of 21. Pancreas appears grossly unremarkable but evaluation may be limited due to lack of IV and oral contrast in the mid mesenteric fat. Fluid distends the stomach. Multiple distended small bowel loops are present involving the upper abdomen and mid abdomen. Transition of small bowel diameter within the right lower quadrant is suspected. Appendix is normal. Uterus is unremarkable. Urinary bladder is mostly decompressed with associated circumferential wall thickening. Bony structures are unremarkable. Impression: Distended small bowel loops with transition suggested within the right lower quadrant. Findings may represent ileus or small bowel obstruction. Pelvic free fluid is present and of slightly higher density. While this may be physiologic, more significant processes as excluded. No definite findings involving the pancreas although evaluation may be limited. PQRS Compliance Statement: One or more of the following individualized dose reduction techniques were utilized for this examination: 1. Automated exposure control 2. Adjustment of the mA and/or kV according to patient size 3. Use of iterative reconstruction technique Electronically signed by: Alex Shahid MD (03/10/2020 8:31 AM) [id number] Laboratory Tests Test 03/10/20 11:59 03/10/20 15:10 03/10/20 17:08 03/11/20 00:39 Glucose (Fingerstick) 108 mg/dL (70-99) 114 mg/dL (70-99) 93 mg/dL (70-99) Urine Opiates Screen Pos (NEG) Urine Methadone Screen Neg (NEG) Urine Barbiturates Neg (NEG) Urine Phencyclidine Screen Neg (NEG) Urine Amphetamine/Methamphetamine Neg (NEG) Urine Benzodiazepines Screen Neg (NEG) Urine Cocaine Screen Neg (NEG) Urine Cannabinoids Screen Pos (NEG) Urine Ethyl Alcohol Neg (NEG) Test 03/11/20 05:00 03/11/20 06:27 White Blood Count 7.9 x10^3/uL (4.0-11.0) Red Blood Count 3.37 x10^6/uL (3.50-5.40) Hemoglobin 10.3 g/dL (12.0-15.5) Hematocrit 30.7 % (36.0-47.0) Mean Corpuscular Volume 91 fL (79-100) Mean Corpuscular Hemoglobin 31 pg (25-35) Mean Corpuscular Hemoglobin Concent 34 g/dL (31-37) Red Cell Distribution Width 16.4 % (11.5-14.5) Platelet Count 279 x10^3/uL (140-400) Neutrophils (%) (Auto) 58 % (31-73) Lymphocytes (%) (Auto) 34 % (24-48) Monocytes (%) (Auto) 6 % (0-9) Eosinophils (%) (Auto) 2 % (0-3) Basophils (%) (Auto) 1 % (0-3) Neutrophils # (Auto) 4.5 x10^3/uL (1.8-7.7) Lymphocytes # (Auto) 2.7 x10^3/uL (1.0-4.8) Monocytes # (Auto) 0.5 x10^3/uL (0.0-1.1) Eosinophils # (Auto) 0.1 x10^3/uL (0.0-0.7) Basophils # (Auto) 0.0 x10^3/uL (0.0-0.2) Sodium Level 144 mmol/L (136-145) Potassium Level 4.1 mmol/L (3.5-5.1) Chloride Level 109 mmol/L (98-107) Carbon Dioxide Level 23 mmol/L (21-32) Anion Gap 12 (6-14) Blood Urea Nitrogen 30 mg/dL (7-20) Creatinine 4.3 mg/dL (0.6-1.0) Estimated GFR (Cockcroft-Gault) 14.4 BUN/Creatinine Ratio 7 (6-20) Glucose Level 84 mg/dL (70-99) Calcium Level 8.5 mg/dL (8.5-10.1) Total Bilirubin 0.1 mg/dL (0.2-1.0) Aspartate Amino Transf (AST/SGOT) 16 U/L (15-37) Alanine Aminotransferase (ALT/SGPT) 13 U/L (14-59) Alkaline Phosphatase 81 U/L (46-116) Total Protein 6.2 g/dL (6.4-8.2) Albumin 3.0 g/dL (3.4-5.0) Albumin/Globulin Ratio 0.9 (1.0-1.7) Glucose (Fingerstick) 108 mg/dL (70-99) Assessment and Plan Assessmemt and Plan Problems Medical Problems: (1) Abdominal pain Status: Acute (2) Chronic abdominal pain Status: Acute (3) ESRD (end stage renal disease) on dialysis Status: Acute (4) Hypertensive urgency Status: Acute (5) Small bowel obstruction Status: Acute Comment Review of Relevant I have reviewed the following items mine (where applicable) has been applied. Labs Laboratory Tests Test 03/10/20 07:50 03/10/20 11:59 03/10/20 15:10 03/10/20 17:08 White Blood Count 7.7 x10^3/uL (4.0-11.0) Red Blood Count 4.00 x10^6/uL (3.50-5.40) Hemoglobin 12.1 g/dL (12.0-15.5) Hematocrit 36.1 % (36.0-47.0) Mean Corpuscular Volume 90 fL (79-100) Mean Corpuscular Hemoglobin 30 pg (25-35) Mean Corpuscular Hemoglobin Concent 34 g/dL (31-37) Red Cell Distribution Width 16.5 % (11.5-14.5) Platelet Count 313 x10^3/uL (140-400) Neutrophils (%) (Auto) 69 % (31-73) Lymphocytes (%) (Auto) 24 % (24-48) Monocytes (%) (Auto) 4 % (0-9) Eosinophils (%) (Auto) 2 % (0-3) Basophils (%) (Auto) 1 % (0-3) Neutrophils # (Auto) 5.3 x10^3/uL (1.8-7.7) Lymphocytes # (Auto) 1.8 x10^3/uL (1.0-4.8) Monocytes # (Auto) 0.3 x10^3/uL (0.0-1.1) Eosinophils # (Auto) 0.2 x10^3/uL (0.0-0.7) Basophils # (Auto) 0.1 x10^3/uL (0.0-0.2) Prothrombin Time 13.3 SEC (11.7-14.0) Prothromb Time International Ratio 1.1 (0.8-1.1) Activated Partial Thromboplast Time 40 SEC (24-38) Sodium Level 142 mmol/L (136-145) Potassium Level 4.1 mmol/L (3.5-5.1) Chloride Level 107 mmol/L (98-107) Carbon Dioxide Level 22 mmol/L (21-32) Anion Gap 13 (6-14) Blood Urea Nitrogen 33 mg/dL (7-20) Creatinine 4.4 mg/dL (0.6-1.0) Estimated GFR (Cockcroft-Gault) 14.1 BUN/Creatinine Ratio 8 (6-20) Glucose Level 135 mg/dL (70-99) Calcium Level 8.9 mg/dL (8.5-10.1) Magnesium Level 1.9 mg/dL (1.8-2.4) Total Bilirubin 0.2 mg/dL (0.2-1.0) Aspartate Amino Transf (AST/SGOT) 16 U/L (15-37) Alanine Aminotransferase (ALT/SGPT) 10 U/L (14-59) Alkaline Phosphatase 95 U/L (46-116) Total Protein 7.4 g/dL (6.4-8.2) Albumin 3.3 g/dL (3.4-5.0) Albumin/Globulin Ratio 0.8 (1.0-1.7) Triglycerides Level 153 mg/dL (0-150) Lipase 493 U/L (73-393) Serum Test, Qualitative Negative (NEG) Ethyl Alcohol Level < 10 mg/dL (0-10) Hepatitis B Surface Antigen Nonreactive (Nonreactive) Hepatitis B Surface Antibody Reactive Glucose (Fingerstick) 108 mg/dL (70-99) 114 mg/dL (70-99) Urine Opiates Screen Pos (NEG) Urine Methadone Screen Neg (NEG) Urine Barbiturates Neg (NEG) Urine Phencyclidine Screen Neg (NEG) Urine Amphetamine/Methamphetamine Neg (NEG) Urine Benzodiazepines Screen Neg (NEG) Urine Cocaine Screen Neg (NEG) Urine Cannabinoids Screen Pos (NEG) Urine Ethyl Alcohol Neg (NEG) Test 03/11/20 00:39 03/11/20 05:00 03/11/20 06:27 Glucose (Fingerstick) 93 mg/dL (70-99) 108 mg/dL (70-99) White Blood Count 7.9 x10^3/uL (4.0-11.0) Red Blood Count 3.37 x10^6/uL (3.50-5.40) Hemoglobin 10.3 g/dL (12.0-15.5) Hematocrit 30.7 % (36.0-47.0) Mean Corpuscular Volume 91 fL (79-100) Mean Corpuscular Hemoglobin 31 pg (25-35) Mean Corpuscular Hemoglobin Concent 34 g/dL (31-37) Red Cell Distribution Width 16.4 % (11.5-14.5) Platelet Count 279 x10^3/uL (140-400) Neutrophils (%) (Auto) 58 % (31-73) Lymphocytes (%) (Auto) 34 % (24-48) Monocytes (%) (Auto) 6 % (0-9) Eosinophils (%) (Auto) 2 % (0-3) Basophils (%) (Auto) 1 % (0-3) Neutrophils # (Auto) 4.5 x10^3/uL (1.8-7.7) Lymphocytes # (Auto) 2.7 x10^3/uL (1.0-4.8) Monocytes # (Auto) 0.5 x10^3/uL (0.0-1.1) Eosinophils # (Auto) 0.1 x10^3/uL (0.0-0.7) Basophils # (Auto) 0.0 x10^3/uL (0.0-0.2) Sodium Level 144 mmol/L (136-145) Potassium Level 4.1 mmol/L (3.5-5.1) Chloride Level 109 mmol/L (98-107) Carbon Dioxide Level 23 mmol/L (21-32) Anion Gap 12 (6-14) Blood Urea Nitrogen 30 mg/dL (7-20) Creatinine 4.3 mg/dL (0.6-1.0) Estimated GFR (Cockcroft-Gault) 14.4 BUN/Creatinine Ratio 7 (6-20) Glucose Level 84 mg/dL (70-99) Calcium Level 8.5 mg/dL (8.5-10.1) Total Bilirubin 0.1 mg/dL (0.2-1.0) Aspartate Amino Transf (AST/SGOT) 16 U/L (15-37) Alanine Aminotransferase (ALT/SGPT) 13 U/L (14-59) Alkaline Phosphatase 81 U/L (46-116) Total Protein 6.2 g/dL (6.4-8.2) Albumin 3.0 g/dL (3.4-5.0) Albumin/Globulin Ratio 0.9 (1.0-1.7) Laboratory Tests Test 03/10/20 11:59 03/10/20 15:10 03/10/20 17:08 03/11/20 00:39 Glucose (Fingerstick) 108 mg/dL (70-99) 114 mg/dL (70-99) 93 mg/dL (70-99) Urine Opiates Screen Pos (NEG) Urine Methadone Screen Neg (NEG) Urine Barbiturates Neg (NEG) Urine Phencyclidine Screen Neg (NEG) Urine Amphetamine/Methamphetamine Neg (NEG) Urine Benzodiazepines Screen Neg (NEG) Urine Cocaine Screen Neg (NEG) Urine Cannabinoids Screen Pos (NEG) Urine Ethyl Alcohol Neg (NEG) Test 03/11/20 05:00 03/11/20 06:27 White Blood Count 7.9 x10^3/uL (4.0-11.0) Red Blood Count 3.37 x10^6/uL (3.50-5.40) Hemoglobin 10.3 g/dL (12.0-15.5) Hematocrit 30.7 % (36.0-47.0) Mean Corpuscular Volume 91 fL (79-100) Mean Corpuscular Hemoglobin 31 pg (25-35) Mean Corpuscular Hemoglobin Concent 34 g/dL (31-37) Red Cell Distribution Width 16.4 % (11.5-14.5) Platelet Count 279 x10^3/uL (140-400) Neutrophils (%) (Auto) 58 % (31-73) Lymphocytes (%) (Auto) 34 % (24-48) Monocytes (%) (Auto) 6 % (0-9) Eosinophils (%) (Auto) 2 % (0-3) Basophils (%) (Auto) 1 % (0-3) Neutrophils # (Auto) 4.5 x10^3/uL (1.8-7.7) Lymphocytes # (Auto) 2.7 x10^3/uL (1.0-4.8) Monocytes # (Auto) 0.5 x10^3/uL (0.0-1.1) Eosinophils # (Auto) 0.1 x10^3/uL (0.0-0.7) Basophils # (Auto) 0.0 x10^3/uL (0.0-0.2) Sodium Level 144 mmol/L (136-145) Potassium Level 4.1 mmol/L (3.5-5.1) Chloride Level 109 mmol/L (98-107) Carbon Dioxide Level 23 mmol/L (21-32) Anion Gap 12 (6-14) Blood Urea Nitrogen 30 mg/dL (7-20) Creatinine 4.3 mg/dL (0.6-1.0) Estimated GFR (Cockcroft-Gault) 14.4 BUN/Creatinine Ratio 7 (6-20) Glucose Level 84 mg/dL (70-99) Calcium Level 8.5 mg/dL (8.5-10.1) Total Bilirubin 0.1 mg/dL (0.2-1.0) Aspartate Amino Transf (AST/SGOT) 16 U/L (15-37) Alanine Aminotransferase (ALT/SGPT) 13 U/L (14-59) Alkaline Phosphatase 81 U/L (46-116) Total Protein 6.2 g/dL (6.4-8.2) Albumin 3.0 g/dL (3.4-5.0) Albumin/Globulin Ratio 0.9 (1.0-1.7) Glucose (Fingerstick) 108 mg/dL (70-99) Medications Current Medications Fentanyl Citrate (Fentanyl 2ml Vial) 50 mcg 1X ONCE IVP ; Start 03/10/20 at 07:45; Stop 03/10/20 at 07:40; Status DC Famotidine (Pepcid Vial) 20 mg 1X ONCE IVP ; Start 03/10/20 at 07:45; Stop 03/10/20 at 07:40; Status DC Metoclopramide HCl (Reglan Vial) 10 mg 1X ONCE IVP ; Start 03/10/20 at 07:45; Stop 03/10/20 at 07:40; Status DC Hyoscyamine (Anaspaz) 0.125 mg 1X ONCE PO Last administered on 03/10/20at 07:57; Start 03/10/20 at 08:00; Stop 03/10/20 at 08:01; Status DC Fentanyl Citrate (Fentanyl 2ml Vial) 75 mcg 1X ONCE IM Last administered on 03/10/20at 07:57; Start 03/10/20 at 08:00; Stop 03/10/20 at 08:01; Status DC Metoclopramide HCl (Reglan Vial) 10 mg 1X ONCE IM Last administered on 03/10/20at 07:56; Start 03/10/20 at 08:00; Stop 03/10/20 at 08:01; Status DC Famotidine (Pepcid) 20 mg 1X ONCE PO Last administered on 03/10/20at 07:57; Start 03/10/20 at 08:00; Stop 03/10/20 at 08:01; Status DC Clonidine HCl (Catapres) 0.1 mg 1X ONCE PO Last administered on 03/10/20at 08:41; Start 03/10/20 at 08:30; Stop 03/10/20 at 08:50; Status DC Hydromorphone HCl (Dilaudid) 1 mg 1X ONCE IM Last administered on 03/10/20at 09:41; Start 03/10/20 at 09:00; Stop 03/10/20 at 09:01; Status DC Prochlorperazine Edisylate (Compazine) 10 mg 1X ONCE IM Last administered on 03/10/20at 09:39; Start 03/10/20 at 09:00; Stop 03/10/20 at 09:01; Status DC Clonidine HCl (Catapres Tts-2) 1 patch 1X ONCE TD Last administered on 03/10/20at 09:35; Start 03/10/20 at 09:00; Stop 03/10/20 at 09:01; Status DC Insulin Human Lispro (HumaLOG) 0-5 UNITS TIDWMEALS SQ ; Start 03/10/20 at 12:00 Dextrose (Dextrose 50%-Water Syringe) 12.5 gm PRN Q15MIN PRN IV SEE COMMENTS; Start 03/10/20 at 09:00 Lidocaine (Lidoderm) 1 patch DAILY TD Last administered on 03/11/20at 07:45; Start 03/10/20 at 10:30 Miscellaneous (Lidoderm Patch Removal) 1 ea QHS MC Last administered on 03/10/20at 21:00; Start 03/10/20 at 21:00 Acetaminophen (Tylenol Supp) 650 mg PRN Q4HRS PRN NC TEMP OVER 100.4F OR MILD PAIN; Start 03/10/20 at 10:30 Albuterol/ Ipratropium (Duoneb) 3 ml Q4HRS NEB ; Start 03/10/20 at 12:00; Stop 03/10/20 at 11:59; Status DC Hydralazine HCl (Apresoline Inj) 10 mg PRN Q4HRS PRN IVP ELEVATED BP, SEE COMMENTS; Start 03/10/20 at 10:30; Stop 03/10/20 at 12:03; Status DC Labetalol HCl (Normodyne Iv Push) 20 mg PRN Q2HR PRN IVP HYPERTENSION Last administered on 03/10/20at 16:13; Start 03/10/20 at 12:00 Fentanyl Citrate (Fentanyl 2ml Vial) 50 mcg PRN Q3HRS PRN IVP PAIN Last administered on 03/11/20at 00:36; Start 03/10/20 at 12:00; Stop 03/11/20 at 08:51; Status DC Promethazine HCl (Phenergan Supp) 25 mg PRN Q6HRS PRN NC NAUSEA/VOMITING Last administered on 03/10/20at 16:35; Start 03/10/20 at 12:00 Albuterol Sulfate (Ventolin Neb Soln) 2.5 mg PRN Q4HRS PRN NEB SHORTNESS OF BREATH; Start 03/10/20 at 12:15 Hydralazine HCl (Apresoline Inj) 20 mg PRN Q4HRS PRN IVP ELEVATED BP, SEE COMMENTS Last administered on 03/10/20at 15:30; Start 03/10/20 at 12:15 Pantoprazole Sodium (PROTONIX VIAL for IV PUSH) 40 mg DAILYAC IVP Last administered on 03/11/20at 07:45; Start 03/10/20 at 13:00 Fentanyl Citrate (Fentanyl 2ml Vial) 75 mcg 1X ONCE IM Last administered on 03/10/20at 13:29; Start 03/10/20 at 12:30; Stop 03/10/20 at 12:31; Status DC Prochlorperazine Edisylate (Compazine) 10 mg PRN Q6HRS PRN IV NAUSEA/VOMITING Last administered on 03/11/20at 01:45; Start 03/10/20 at 13:30 Nicardipine HCl 50 mg/Sodium Chloride 250 ml @ 25 mls/hr CONT PRN IV SEE I/O RECORD Last administered on 03/11/20at 02:11; Start 03/10/20 at 16:00 Fentanyl Citrate (Fentanyl 2ml Vial) 25 mcg 1X ONCE IVP Last administered on 03/10/20at 20:33; Start 03/10/20 at 20:15; Stop 03/10/20 at 20:16; Status DC Fentanyl Citrate (Fentanyl 2ml Vial) 50 mcg PRN Q2HRS PRN IV PAIN; Start 03/11/20 at 06:45 Scopolamine (Transderm-Scop) 1 patch Q3DAYS@0700 TD Last administered on 03/11/20at 07:45; Start 03/11/20 at 07:00 Iohexol (Omnipaque 300 Mg/ml) 400 ml 1X ONCE PO ; Start 03/11/20 at 09:45; Stop 03/11/20 at 09:49; Status DC Info (CONTRAST GIVEN -- Rx MONITORING) 1 each PRN DAILY PRN MC SEE COMMENTS; Start 03/11/20 at 10:00; Stop 03/13/20 at 09:59 Active Scripts Active Orphenadrine Citrate 100 Mg Tablet.er 1 Tab PO BID PRN 10 Days Reglan (Metoclopramide Hcl) 10 Mg Tablet 1 Tab PO QID PRN 5 Days before food and bedtime Promethazine Hcl 12.5 Mg Tablet 12.5 Mg PO Q6H PRN Levsin-Sl (Hyoscyamine Sulfate) 0.125 Mg Tab.subl 0.125 Mg SL PRN Q4-6HRS PRN Isosorbide Mononitrate Er (Isosorbide Mononitrate) 30 Mg Tab.er.24h 1 Tab PO DAILY 30 Days Lidocaine PATCH (Lidocaine) 1 Each Adh..patch 1 Patch TD DAILY 30 Days Cyclobenzaprine Hcl 10 Mg Tablet 10 Mg PO PRN Q6HRS PRN 10 Days Reported Amlodipine Besylate 10 Mg Tablet 10 Mg PO DAILY Hydralazine Hcl 50 Mg Tablet 1 Tab PO TID Carvedilol 25 Mg Tablet 25 Mg PO BIDWMEALS Promethazine Hcl 25 Mg Tablet 1 Tab PO PRN Q6HRS Miralax (Polyethylene Glycol 3350) 17 Gm Powd.pack 1 Packet PO BID Lantus (Insulin Glargine,Hum.rec.anlog) 100 Unit/1 Ml Vial 25 Unit SQ QHS Novolog (Insulin Aspart) 100 Unit/1 Ml Cartridge 4 Unit SQ TID Lexapro (Escitalopram Oxalate) 20 Mg Tablet 1 Tab PO DAILY Pantoprazole Sodium (Pantoprazole Sodium) 40 Mg Tablet.dr 1 Tab PO DAILY Dicyclomine Hcl 10 Mg Capsule 1 Cap PO TID Vitals/I & O Vital Sign - Last 24 Hours 03/10/20 03/10/20 03/10/20 03/10/20 10:10 10:30 10:30 15:00 Temp 98.5 97.3 98.5 97.3 Pulse 81 64 Resp 16 20 16 B/P (MAP) 208/109 (142) 207/105 (139) Pulse Ox 98 99 98 O2 Delivery Room Air Room Air Room Air Room Air 03/10/20 03/10/20 03/10/20 03/10/20 15:30 16:13 19:45 20:00 Temp 98.5 98.5 Pulse 84 100 90 Resp 18 B/P (MAP) 201/109 238/109 132/83 (99) Pulse Ox 98 O2 Delivery Room Air Room Air 03/10/20 03/10/20 03/10/20 03/10/20 20:33 21:03 21:36 22:06 Resp 16 16 16 16 Pulse Ox 98 98 98 98 O2 Delivery Room Air Room Air Room Air Room Air 03/10/20 03/11/20 03/11/20 03/11/20 23:00 00:36 03:00 07:00 Temp 97.7 98.5 97.7 98.5 Pulse 86 90 95 Resp 20 16 16 B/P (MAP) 147/88 (107) 160/104 (122) 170/96 (120) Pulse Ox 97 97 98 O2 Delivery Room Air Room Air Room Air Intake and Output 03/10/20 03/10/20 03/11/20 15:00 23:00 07:00 Intake Total 0 ml 0 ml Output Total 250 ml 100 ml Balance 0 ml -250 ml -100 ml Justicifation of Admission Dx: Justifications for Admission: Justification of Admission Dx: Yes GINA PIÑA MD Mar 11, 2020 10:07
--- NOTE | 2020-03-11 10:10 | PDOC ---
Subjective: Subjective: Bilateral flank pain w/ breathing, diffuse abdominal pain, pain across mid back. Vomited a little last night. Gas but no stool. Trigger point inj in left abdomen helped at [facility] but this pain is not just in that area. Objective: Objective: D/w nurse - Refused NGT yesterday. Back and forth with symptoms - will sleep w/ Fentanyl and then wake up an hour later writhing in pain. C/o flank pain, nausea - spit up a little. No stool. Records from [facility] - EGD and colonoscopy in 2016 - cannot view results. Recently w/ elevated lipase (>1000) and normal pancreas on CT. Received trigger point injections in left abdomen. Vital Signs: Vital Signs Date Time Temp Pulse Resp B/P (MAP) Pulse Ox O2 Delivery O2 Flow Rate FiO2 03/11/20 07:00 98.5 95 16 170/96 (120) 98 Room Air 98.5 Labs: Laboratory Tests Test 03/10/20 11:59 03/10/20 15:10 03/10/20 17:08 03/11/20 00:39 Glucose (Fingerstick) 108 mg/dL 114 mg/dL 93 mg/dL Urine Opiates Screen Pos Urine Methadone Screen Neg Urine Barbiturates Neg Urine Phencyclidine Screen Neg Urine Amphetamine/Methamphetamine Neg Urine Benzodiazepines Screen Neg Urine Cocaine Screen Neg Urine Cannabinoids Screen Pos Urine Ethyl Alcohol Neg Test 03/11/20 05:00 03/11/20 06:27 White Blood Count 7.9 x10^3/uL Red Blood Count 3.37 x10^6/uL Hemoglobin 10.3 g/dL Hematocrit 30.7 % Mean Corpuscular Volume 91 fL Mean Corpuscular Hemoglobin 31 pg Mean Corpuscular Hemoglobin Concent 34 g/dL Red Cell Distribution Width 16.4 % Platelet Count 279 x10^3/uL Neutrophils (%) (Auto) 58 % Lymphocytes (%) (Auto) 34 % Monocytes (%) (Auto) 6 % Eosinophils (%) (Auto) 2 % Basophils (%) (Auto) 1 % Neutrophils # (Auto) 4.5 x10^3/uL Lymphocytes # (Auto) 2.7 x10^3/uL Monocytes # (Auto) 0.5 x10^3/uL Eosinophils # (Auto) 0.1 x10^3/uL Basophils # (Auto) 0.0 x10^3/uL Sodium Level 144 mmol/L Potassium Level 4.1 mmol/L Chloride Level 109 mmol/L Carbon Dioxide Level 23 mmol/L Anion Gap 12 Blood Urea Nitrogen 30 mg/dL Creatinine 4.3 mg/dL Estimated GFR (Cockcroft-Gault) 14.4 BUN/Creatinine Ratio 7 Glucose Level 84 mg/dL Calcium Level 8.5 mg/dL Total Bilirubin 0.1 mg/dL Aspartate Amino Transf (AST/SGOT) 16 U/L Alanine Aminotransferase (ALT/SGPT) 13 U/L Alkaline Phosphatase 81 U/L Total Protein 6.2 g/dL Albumin 3.0 g/dL Albumin/Globulin Ratio 0.9 Glucose (Fingerstick) 108 mg/dL PE: GEN: dialyzing LUNGS: clear HEART: RRR ABD: quiet BS NEURO/PSYCH: A & O 3 A/P: Recurrent n/v, abd pain - ?ileus/SBO on CT HTN, ESRD, non-compliance H/o pancreatitis - s/p jeyson, normal pancreas on CT here and per [facility] notes +marijuana -- Orders for abd x-rays and SBS - await these. Re: pancreatitis - ?outpt MRCP H/o gastroparesis - could not see that she has had GES per [facility] records - could benefit from checking/re-checking at some point. Will review all w/ Dr. Solano. Justicifation of Admission Dx: Justifications for Admission: Justification of Admission Dx: Yes JANICE JACOBO Mar 11, 2020 10:10
--- NOTE | 2020-03-11 10:19 | PDOC ---
SLAB TRIPPER PROGRESS NOTE Subjective: The pt feels worse. She has intense back and stomach pain. She feels her IV pain meds have not helped much. She is in pain just sitting and breathing. Objective: Vital Signs: Vital Signs Date Time Temp Pulse Resp B/P (MAP) Pulse Ox O2 Delivery O2 Flow Rate FiO2 03/10/20 07:14 98.2 96 22 300/300 (300) 98 Room Air 98.2 Vital Signs Date Time Temp Pulse Resp B/P (MAP) Pulse Ox O2 Delivery O2 Flow Rate FiO2 03/11/20 07:00 98.5 95 16 170/96 (120) 98 Room Air 98.5 Labs: Laboratory Tests Test 03/10/20 11:59 03/10/20 15:10 03/10/20 17:08 03/11/20 00:39 Glucose (Fingerstick) 108 mg/dL (70-99) H 114 mg/dL (70-99) H 93 mg/dL (70-99) Urine Opiates Screen Pos (NEG) Urine Methadone Screen Neg (NEG) Urine Barbiturates Neg (NEG) Urine Phencyclidine Screen Neg (NEG) Urine Amphetamine/Methamphetamine Neg (NEG) Urine Benzodiazepines Screen Neg (NEG) Urine Cocaine Screen Neg (NEG) Urine Cannabinoids Screen Pos (NEG) Urine Ethyl Alcohol Neg (NEG) Test 03/11/20 05:00 03/11/20 06:27 White Blood Count 7.9 x10^3/uL (4.0-11.0) Red Blood Count 3.37 x10^6/uL (3.50-5.40) L Hemoglobin 10.3 g/dL (12.0-15.5) L Hematocrit 30.7 % (36.0-47.0) L Mean Corpuscular Volume 91 fL (79-100) Mean Corpuscular Hemoglobin 31 pg (25-35) Mean Corpuscular Hemoglobin Concent 34 g/dL (31-37) Red Cell Distribution Width 16.4 % (11.5-14.5) H Platelet Count 279 x10^3/uL (140-400) Neutrophils (%) (Auto) 58 % (31-73) Lymphocytes (%) (Auto) 34 % (24-48) Monocytes (%) (Auto) 6 % (0-9) Eosinophils (%) (Auto) 2 % (0-3) Basophils (%) (Auto) 1 % (0-3) Neutrophils # (Auto) 4.5 x10^3/uL (1.8-7.7) Lymphocytes # (Auto) 2.7 x10^3/uL (1.0-4.8) Monocytes # (Auto) 0.5 x10^3/uL (0.0-1.1) Eosinophils # (Auto) 0.1 x10^3/uL (0.0-0.7) Basophils # (Auto) 0.0 x10^3/uL (0.0-0.2) Sodium Level 144 mmol/L (136-145) Potassium Level 4.1 mmol/L (3.5-5.1) Chloride Level 109 mmol/L (98-107) H Carbon Dioxide Level 23 mmol/L (21-32) Anion Gap 12 (6-14) Blood Urea Nitrogen 30 mg/dL (7-20) H Creatinine 4.3 mg/dL (0.6-1.0) H Estimated GFR (Cockcroft-Gault) 14.4 BUN/Creatinine Ratio 7 (6-20) Glucose Level 84 mg/dL (70-99) Calcium Level 8.5 mg/dL (8.5-10.1) Total Bilirubin 0.1 mg/dL (0.2-1.0) L Aspartate Amino Transferase (AST) 16 U/L (15-37) Alanine Aminotransferase (ALT) 13 U/L (14-59) L Alkaline Phosphatase 81 U/L (46-116) Total Protein 6.2 g/dL (6.4-8.2) L Albumin 3.0 g/dL (3.4-5.0) L Albumin/Globulin Ratio 0.9 (1.0-1.7) L Glucose (Fingerstick) 108 mg/dL (70-99) H Laboratory Tests 03/11/20 05:00 Laboratory Tests 03/11/20 05:00 Laboratory Tests 03/11/20 05:00 Physical Exam: GENERAL: No apparent distress. Alert and oriented. HEENT: Head normocephalic, atraumatic. NECK: Supple LUNGS: Clear to auscultation. HEART: RRR, S1, S2 present, pulses intact ABDOMEN: Soft, positive bowel sounds. EXTREMITIES: No cyanosis or edema. NEUROLOGIC: Normal speech, normal tone PSYCHIATRIC: Normal affect, normal mood. SKIN: No ulceration. Assessment & Plan: A/P 34y with abd pain thought to be 2/2 SBO 1.) N/V and abd pain possible cause ileus/SBO, credit verifier cause not likely at this time 2.) Free fluid most likely physiologic, no intervention or additional eval necessary 3.) SBO based on imagining, GI and Gen Surg consulted 4.) HTN h/o poor control, in crisis, Cardiology consulted 5.) ESRD stage IV, on dialysis, nephrology consulted 6.) DM type I labial, managed by primary team 7.) H/o pancreatitis 8.) Will continue to follow LYLY RAYMOND MD Mar 11, 2020 10:19
--- NOTE | 2020-03-11 11:26 | NUR ---
SS following up with discharge planning. SS reviewed pt chart and discussed with pt RN. Pt is from home with mother and is currently on room air. Pat has outpatient dialysis at [facility], ; [phone], Tuesday, , and Tuesday. SS will continue to follow for discharge planning.
[2020-03-11] MEDS: DEXTROSE 50% 25 GM / 50ML DISP.SYRIN. IV PRN (12:29)
--- NOTE | 2020-03-11 13:09 | PDOC ---
CHERYL SAWYER HEEL SEAT POUNDER 03/11/20 1308: CARDIO Progress Notes Date and Time Date of Service 03/11/20 Time of Evaluation 1300 Subjective Subjective: No Chest Pain, Other (abd psin. couldnt tolerate NG) Vitals Vitals Vital Signs Date Time Temp Pulse Resp B/P (MAP) Pulse Ox O2 Delivery O2 Flow Rate FiO2 03/11/20 08:00 Room Air 03/11/20 07:00 98.5 95 16 170/96 (120) 98 98.5 Weight Weight [ ] Input and Output Intake and Output Intake and Output 03/11/20 07:00 Intake Total 0 ml Output Total 350 ml Balance -350 ml Intake Oral 0 ml Output Urine Total 350 ml # Voids 1 Laboratory Labs Laboratory Tests Test 03/10/20 15:10 03/10/20 17:08 03/11/20 00:39 03/11/20 05:00 Urine Opiates Screen Pos (NEG) Urine Methadone Screen Neg (NEG) Urine Barbiturates Neg (NEG) Urine Phencyclidine Screen Neg (NEG) Urine Amphetamine/Methamphetamine Neg (NEG) Urine Benzodiazepines Screen Neg (NEG) Urine Cocaine Screen Neg (NEG) Urine Cannabinoids Screen Pos (NEG) Urine Ethyl Alcohol Neg (NEG) Glucose (Fingerstick) 114 mg/dL (70-99) 93 mg/dL (70-99) White Blood Count 7.9 x10^3/uL (4.0-11.0) Red Blood Count 3.37 x10^6/uL (3.50-5.40) Hemoglobin 10.3 g/dL (12.0-15.5) Hematocrit 30.7 % (36.0-47.0) Mean Corpuscular Volume 91 fL (79-100) Mean Corpuscular Hemoglobin 31 pg (25-35) Mean Corpuscular Hemoglobin Concent 34 g/dL (31-37) Red Cell Distribution Width 16.4 % (11.5-14.5) Platelet Count 279 x10^3/uL (140-400) Neutrophils (%) (Auto) 58 % (31-73) Lymphocytes (%) (Auto) 34 % (24-48) Monocytes (%) (Auto) 6 % (0-9) Eosinophils (%) (Auto) 2 % (0-3) Basophils (%) (Auto) 1 % (0-3) Neutrophils # (Auto) 4.5 x10^3/uL (1.8-7.7) Lymphocytes # (Auto) 2.7 x10^3/uL (1.0-4.8) Monocytes # (Auto) 0.5 x10^3/uL (0.0-1.1) Eosinophils # (Auto) 0.1 x10^3/uL (0.0-0.7) Basophils # (Auto) 0.0 x10^3/uL (0.0-0.2) Sodium Level 144 mmol/L (136-145) Potassium Level 4.1 mmol/L (3.5-5.1) Chloride Level 109 mmol/L (98-107) Carbon Dioxide Level 23 mmol/L (21-32) Anion Gap 12 (6-14) Blood Urea Nitrogen 30 mg/dL (7-20) Creatinine 4.3 mg/dL (0.6-1.0) Estimated GFR (Cockcroft-Gault) 14.4 BUN/Creatinine Ratio 7 (6-20) Glucose Level 84 mg/dL (70-99) Calcium Level 8.5 mg/dL (8.5-10.1) Total Bilirubin 0.1 mg/dL (0.2-1.0) Aspartate Amino Transf (AST/SGOT) 16 U/L (15-37) Alanine Aminotransferase (ALT/SGPT) 13 U/L (14-59) Alkaline Phosphatase 81 U/L (46-116) Total Protein 6.2 g/dL (6.4-8.2) Albumin 3.0 g/dL (3.4-5.0) Albumin/Globulin Ratio 0.9 (1.0-1.7) Test 03/11/20 06:27 03/11/20 11:17 Glucose (Fingerstick) 108 mg/dL (70-99) 81 mg/dL (70-99) Physical Exam HEENT: Neck Supple W Full Motion Chest: Symmetric LUNGS: Clear to Auscultation Heart: RRR Abdomen: Other (tenderness) Neurology: alert, oriented, follow commands Assessment Assessment 1. Abdominal pain, nausea/vomiting. Has not been able to take meds. Imaging with ? ileus vs SBO 2. Recent pancreatitis 3. Hypertensive urgency; unable to take PO, on Cardene gtt 4. ESRD on HD 5. Diabetes, II 6. Hyperlipidemia 7. Depression, anxiety Recommendations Continue with Cardene gtt while NPO Labetalol, hydralazine IV PRN Resume oral antiHTN therapy when able to take PO Fluid offloading via HD Supportive care from a CV standpoint Justicifation of Admission Dx: Justifications for Admission: Justification of Admission Dx: Yes ALESIA GOLDEN MD 03/13/20 1150: CHERYL SAWYER APRN Mar 11, 2020 13:08 ALESIA GOLDEN MD Mar 13, 2020 11:50
[2020-03-11] MEDS: hydrALAZINE 20 MG/ML VIAL. IVP PRN (13:24)
[2020-03-11 15:00] VITALS: BP 154/100
[2020-03-11] MEDS: LABETALOL 20 MG/4 ML DISP.SYRIN. IVP PRN (15:55)
[2020-03-11] MEDS ORDERED: BISACODYL 10 MG SUPP.RECT. PR PRN (17:45)
[2020-03-11] MEDS ORDERED: diphenhydrAMINE 50 MG/ML VIAL IVP ONE (17:45)
[2020-03-11] MEDS: PHENOL ORAL SPRAY 177ML BOTTLE. PO PRN (18:11)
[2020-03-11 19:45] VITALS: BP 127/75
[2020-03-11] MEDS: diphenhydrAMINE 50 MG/ML VIAL IVP PRN (20:52)
[2020-03-11] MEDS: PATCH REMOVAL. MC SCH (21:00)
[2020-03-11 22:40] VITALS: BP 159/91
[2020-03-12] MEDS: fentaNYL PF VIAL 100 MCG/2 ML VIAL IV PRN ×8 (00:37→23:22)
--- NOTE | 2020-03-12 01:51 | NUR ---
central line dressing changed unter sterile procedure twice this shift d/t patient repeatedly pulling dressing down states "it itches" benadryl administered per OCT.
[2020-03-12] MEDS: diphenhydrAMINE 50 MG/ML VIAL IVP PRN ×3 (01:56→23:21)
[2020-03-12 03:05] VITALS: BP 177/104
[2020-03-12] MEDS: PHENOL ORAL SPRAY 177ML BOTTLE. PO PRN (03:39)
[2020-03-12] MEDS: PROCHLORPERAZINE 10 MG/2 ML VIAL. IV PRN ×3 (03:55→23:21)
[2020-03-12] MEDS: DEXTROSE 50% 25 GM / 50ML DISP.SYRIN. IV PRN (06:15)
[2020-03-12 06:27] VITALS: BP 187/102
[2020-03-12] MEDS: PANTOPRAZOLE IV PUSH 40 MG VIAL. IVP SCH (07:43)
[2020-03-12] MEDS: LIDOCAINE (700MG/PATCH) PATCH. TD SCH (07:44)
[2020-03-12] MEDS: hydrALAZINE 20 MG/ML VIAL. IVP PRN (07:44)
[2020-03-12] MEDS: INSULIN LISPRO 300 UNITS/3 ML VIAL. SQ SCH ×3 (07:45→17:00)
[2020-03-12] MEDS ORDERED: IOHEXOL 300 MG/ML 100ML VIAL. PO ONE (08:30)
--- NOTE | 2020-03-12 09:08 | PDOC ---
Objective: Objective: D/w nurse - out for SBS, no nausea, still some lower abd pain but less firm today, asking to have ice chips, had a moderate BM yesterday. Vital Signs: Vital Signs Date Time Temp Pulse Resp B/P (MAP) Pulse Ox O2 Delivery O2 Flow Rate FiO2 03/12/20 07:44 79 187/102 03/12/20 06:27 98.0 18 95 Room Air 98.0 Labs: Laboratory Tests Test 03/11/20 11:17 03/11/20 17:17 03/12/20 06:05 03/12/20 06:49 Glucose (Fingerstick) 81 mg/dL 81 mg/dL 41 mg/dL 125 mg/dL Test 03/12/20 08:18 Glucose (Fingerstick) 99 mg/dL Imaging: AAS 03/12 pending PE: out of room for imaging A/P: Recurrent n/v, abd pain - ?ileus/SBO on CT HTN, ESRD, non-compliance H/o pancreatitis +marijuana -- Okay to have ice chips. Await pending imaging. Justicifation of Admission Dx: Justifications for Admission: Justification of Admission Dx: Yes JANICE JACOBO Mar 12, 2020 09:08
--- NOTE | 2020-03-12 09:40 | PDOC ---
SUBJECTIVE ROS stable, no vomiting, c/o Low back pain and abdominal pain OBJECTIVE Vital Signs Vital Signs Date Time Temp Pulse Resp B/P (MAP) Pulse Ox O2 Delivery O2 Flow Rate FiO2 03/12/20 07:44 79 187/102 03/12/20 06:27 98.0 18 95 Room Air 98.0 I & 0 Intake and Output 03/12/20 07:00 Intake Total 0 ml Output Total 200 ml Balance -200 ml Intake Oral 0 ml Output Urine Total 200 ml # Bowel Movements 1 PHYSICAL EXAM Physical Exam GEN: NAD HEEN: OM moist NECK: supple CVS: S1S2 RESP: CTA, No Acc. Muscle Use : No CVA tenderness, No Suprapubic Tenderness, No choi NEUR--Grossly normal SKIN No rash EXT No LE edema, has TDC DIAGNOSIS/ASSESSMENT Assessment & Plan ESRD - On HD TTS No indication for HD today Hypertension - Cardiology managing Getting Echo Abdominal pain- SBO/Ileus on CT scan per GS- had SBFT - mild obstruction and mild small Bowel dilatation per verbal report Gastroparesis- 2/2 DM DM- per primary Marijuana use- Positive Anemia - Hgb stable, No indication for ZORAIDA COMMENT/RELEVANT DATA Meds Current Medications Medications (Trade) Dose Ordered Sig/Brown Start Time Stop Time Status Last Admin Dose Admin Acetaminophen (Tylenol Supp) 650 mg PRN Q4HRS PRN 03/10/20 10:30 Albuterol Sulfate (Ventolin Neb Soln) 2.5 mg PRN Q4HRS PRN 03/10/20 12:15 Albuterol/ Ipratropium (Duoneb) 3 ml Q4HRS 03/10/20 12:00 03/10/20 11:59 DC Bisacodyl (Dulcolax Supp) 10 mg PRN DAILY PRN 03/11/20 17:45 Clonidine HCl (Catapres Tts-2) 1 patch 1X ONCE 03/10/20 09:00 03/10/20 09:01 DC 03/10/20 09:35 1 PATCH Clonidine HCl (Catapres) 0.1 mg 1X ONCE 03/10/20 08:30 03/10/20 08:50 DC 03/10/20 08:41 0.1 MG Dextrose (Dextrose 50%-Water Syringe) 12.5 gm PRN Q15MIN PRN 03/10/20 09:00 03/12/20 06:15 12.5 GM Diphenhydramine HCl (Benadryl) 12.5 mg PRN Q4HRS PRN 03/11/20 20:15 03/12/20 01:56 12.5 MG Famotidine (Pepcid Vial) 20 mg 1X ONCE 03/10/20 07:45 03/10/20 07:40 DC Famotidine (Pepcid) 20 mg 1X ONCE 03/10/20 08:00 03/10/20 08:01 DC 03/10/20 07:57 20 MG Fentanyl Citrate (Fentanyl 2ml Vial) 50 mcg PRN Q2HRS PRN 03/11/20 06:45 03/12/20 07:44 50 MCG Hydralazine HCl (Apresoline Inj) 20 mg PRN Q4HRS PRN 03/10/20 12:15 03/12/20 07:44 20 MG Hydromorphone HCl (Dilaudid) 1 mg 1X ONCE 03/10/20 09:00 03/10/20 09:01 DC 03/10/20 09:41 1 MG Hyoscyamine (Anaspaz) 0.125 mg 1X ONCE 03/10/20 08:00 03/10/20 08:01 DC 03/10/20 07:57 0.125 MG Info (CONTRAST GIVEN -- Rx MONITORING) 1 each PRN DAILY PRN 03/11/20 10:00 03/13/20 09:59 Insulin Human Lispro (HumaLOG) 0-5 UNITS TIDWMEALS 03/10/20 12:00 Iohexol (Omnipaque 300 Mg/ml) 400 ml 1X ONCE 03/12/20 08:30 03/12/20 08:31 DC Labetalol HCl (Normodyne Iv Push) 20 mg PRN Q2HR PRN 03/10/20 12:00 03/11/20 15:55 20 MG Lidocaine (Lidoderm) 1 patch DAILY 03/10/20 10:30 03/12/20 07:44 1 PATCH Lorazepam (Ativan Inj) 0.5 mg 1X ONCE 03/11/20 12:45 03/11/20 12:46 DC 03/11/20 13:23 0.5 MG Metoclopramide HCl (Reglan Vial) 10 mg 1X ONCE 03/10/20 08:00 03/10/20 08:01 DC 03/10/20 07:56 10 MG Miscellaneous (Lidoderm Patch Removal) 1 ea QHS 03/10/20 21:00 03/11/20 21:00 1 EA Nicardipine HCl 50 mg/Sodium Chloride 250 ml @ 25 mls/hr CONT PRN 03/10/20 16:00 03/11/20 02:11 25 MLS/HR Pantoprazole Sodium (PROTONIX VIAL for IV PUSH) 40 mg DAILYAC 03/10/20 13:00 03/12/20 07:43 40 MG Phenol (Chloraseptic) 1 spray PRN Q2HR PRN 03/11/20 17:45 03/12/20 03:39 1 SPRAY Prochlorperazine Edisylate (Compazine) 10 mg PRN Q6HRS PRN 03/10/20 13:30 03/12/20 03:55 10 MG Promethazine HCl (Phenergan Supp) 25 mg PRN Q6HRS PRN 03/10/20 12:00 03/10/20 16:35 25 MG Scopolamine (Transderm-Scop) 1 patch Q3DAYS@0700 03/11/20 07:00 03/11/20 07:45 1 PATCH Lab Laboratory Tests Test 03/11/20 11:17 03/11/20 17:17 03/12/20 06:05 03/12/20 06:49 Glucose (Fingerstick) 81 mg/dL (70-99) 81 mg/dL (70-99) 41 mg/dL (70-99) 125 mg/dL (70-99) Test 03/12/20 08:18 Glucose (Fingerstick) 99 mg/dL (70-99) Results All relevant outside records, renal labs, imaging studies, telemetry/EKG's were reviewed. Justicifation of Admission Dx: Justifications for Admission: Justification of Admission Dx: Yes MELLISSA DE MD Mar 12, 2020 09:40
--- NOTE | 2020-03-12 09:45 | RAD ---
2 view abdominal series and PA view chest x-ray Clinical indications: Small bowel obstruction COMPARISON: February 20, 2020. FINDINGS: There are mildly dilated loops of central small bowel. This appears more prominent than on the previous study. There are small air-fluid levels present. No free intraperitoneal air is seen. Surgical clips are seen within the right upper quadrant. Osseous structures are intact. Chest x-ray demonstrates no acute lung infiltrate or pleural effusion or pulmonary edema or pneumothorax. 2 right IJ central lines are in place. The larger line tip is seen within the distal SVC at the junction with the right atrium. The smaller line tip is seen within the right atrium. The heart size and mediastinum and pulmonary vasculature and both tang are unremarkable. IMPRESSION: Mild central small bowel dilatation which may indicate a mild small bowel obstruction. Electronically signed by: Gustavo Barillas MD (03/12/2020 9:42 AM) [id number]
--- NOTE | 2020-03-12 10:18 | PDOC ---
CHERYL SAWYER ANNETTA 03/12/20 1018: CARDIO Progress Notes Date and Time Date of Service 03/12/20 Time of Evaluation 1010 Subjective Subjective: No Chest Pain, Other (abd tenderness) Vitals Vitals Vital Signs Date Time Temp Pulse Resp B/P (MAP) Pulse Ox O2 Delivery O2 Flow Rate FiO2 03/12/20 07:44 79 187/102 03/12/20 06:27 98.0 18 95 Room Air 98.0 Weight Weight [ ] Input and Output Intake and Output Intake and Output 03/12/20 07:00 Intake Total 0 ml Output Total 200 ml Balance -200 ml Intake Oral 0 ml Output Urine Total 200 ml # Bowel Movements 1 Laboratory Labs Laboratory Tests Test 03/11/20 11:17 03/11/20 17:17 03/12/20 06:05 03/12/20 06:49 Glucose (Fingerstick) 81 mg/dL (70-99) 81 mg/dL (70-99) 41 mg/dL (70-99) 125 mg/dL (70-99) Test 03/12/20 08:18 Glucose (Fingerstick) 99 mg/dL (70-99) Physical Exam HEENT: Neck Supple W Full Motion Chest: Symmetric LUNGS: Clear to Auscultation Heart: RRR Abdomen: Other (tenderness) Neurology: alert, oriented, follow commands Assessment Assessment 1. Abdominal pain, nausea/vomiting, gastroparesis. 2. Recent pancreatitis 3. Hypertensive urgency; Cardene off 4. ESRD on HD. 5. Diabetes, II 6. Hyperlipidemia 7. Depression, anxiety Recommendations Use IV Labetalol, hydralazine while NPO Resume oral antiHTN therapy when able to take PO Fluid offloading via HD Supportive care from a CV standpoint Justicifation of Admission Dx: Justifications for Admission: Justification of Admission Dx: Yes ALESIA GOLDEN MD 03/13/20 1154: CARDIO Progress Notes Plan Plan Late entry for 03/12/2020 Pt. seen and examined. Agree with above PLASTERER ROUGH note. Supportive care. Restarte home BP meds. CHERYL SAWYER ANNETTA Mar 12, 2020 10:18 ALESIA GOLDEN MD Mar 13, 2020 11:54
--- NOTE | 2020-03-12 10:42 | PDOC ---
JOB PRINTER APPRENTICE PROGRESS NOTE Subjective: Pt down at echo, so unable to interview pt. Objective: Vital Signs: Vital Signs Date Time Temp Pulse Resp B/P (MAP) Pulse Ox O2 Delivery O2 Flow Rate FiO2 03/11/20 07:00 98.5 95 16 170/96 (120) 98 Room Air 98.5 Vital Signs Date Time Temp Pulse Resp B/P (MAP) Pulse Ox O2 Delivery O2 Flow Rate FiO2 03/12/20 07:44 79 187/102 03/12/20 06:27 98.0 18 95 Room Air 98.0 Labs: Laboratory Tests Test 03/11/20 11:17 03/11/20 17:17 03/12/20 06:05 03/12/20 06:49 Glucose (Fingerstick) 81 mg/dL (70-99) 81 mg/dL (70-99) 41 mg/dL (70-99) *L 125 mg/dL (70-99) H Test 03/12/20 08:18 Glucose (Fingerstick) 99 mg/dL (70-99) Physical Exam: GENERAL: No apparent distress. Alert and oriented. HEENT: Head normocephalic, atraumatic. NECK: Supple LUNGS: Clear to auscultation. HEART: RRR, S1, S2 present, pulses intact ABDOMEN: Soft, positive bowel sounds. EXTREMITIES: No cyanosis or edema. NEUROLOGIC: Normal speech, normal tone PSYCHIATRIC: Normal affect, normal mood. SKIN: No ulceration. Assessment & Plan: A/P 34y with abd pain thought to be 2/2 SBO 1.) N/V and abd pain possible cause ileus/SBO 2.) SBO based on imagining, GI and Gen Surg consulted 3.) HTN h/o poor control, in crisis, Cardiology consulted 4.) ESRD stage IV, on dialysis, nephrology consulted 5.) DM type I labial, managed by primary team 6.) H/o pancreatitis 7.) Will continue to follow LYLY RAYMOND MD Mar 12, 2020 10:42
--- NOTE | 2020-03-12 12:27 | PDOC ---
RAFITA CONLEY CRIMINAL RECORDS TECHNICIAN 03/12/20 1227: SURGICAL PROGRESS NOTE Subjective attempted to round a couple of times Down for SBFT await results Vital Signs Vital Signs Date Time Temp Pulse Resp B/P (MAP) Pulse Ox O2 Delivery O2 Flow Rate FiO2 03/12/20 08:00 Room Air 03/12/20 07:44 79 187/102 03/12/20 06:27 98.0 18 95 98.0 I&O Intake and Output 03/12/20 07:00 Intake Total 0 ml Output Total 200 ml Balance -200 ml Intake Oral 0 ml Output Urine Total 200 ml # Bowel Movements 1 Labs Laboratory Tests Test 03/10/20 15:10 03/10/20 17:08 03/11/20 00:39 03/11/20 05:00 Urine Opiates Screen Pos (NEG) Urine Methadone Screen Neg (NEG) Urine Barbiturates Neg (NEG) Urine Phencyclidine Screen Neg (NEG) Urine Amphetamine/Methamphetamine Neg (NEG) Urine Benzodiazepines Screen Neg (NEG) Urine Cocaine Screen Neg (NEG) Urine Cannabinoids Screen Pos (NEG) Urine Ethyl Alcohol Neg (NEG) Glucose (Fingerstick) 114 mg/dL (70-99) 93 mg/dL (70-99) White Blood Count 7.9 x10^3/uL (4.0-11.0) Red Blood Count 3.37 x10^6/uL (3.50-5.40) Hemoglobin 10.3 g/dL (12.0-15.5) Hematocrit 30.7 % (36.0-47.0) Mean Corpuscular Volume 91 fL (79-100) Mean Corpuscular Hemoglobin 31 pg (25-35) Mean Corpuscular Hemoglobin Concent 34 g/dL (31-37) Red Cell Distribution Width 16.4 % (11.5-14.5) Platelet Count 279 x10^3/uL (140-400) Neutrophils (%) (Auto) 58 % (31-73) Lymphocytes (%) (Auto) 34 % (24-48) Monocytes (%) (Auto) 6 % (0-9) Eosinophils (%) (Auto) 2 % (0-3) Basophils (%) (Auto) 1 % (0-3) Neutrophils # (Auto) 4.5 x10^3/uL (1.8-7.7) Lymphocytes # (Auto) 2.7 x10^3/uL (1.0-4.8) Monocytes # (Auto) 0.5 x10^3/uL (0.0-1.1) Eosinophils # (Auto) 0.1 x10^3/uL (0.0-0.7) Basophils # (Auto) 0.0 x10^3/uL (0.0-0.2) Sodium Level 144 mmol/L (136-145) Potassium Level 4.1 mmol/L (3.5-5.1) Chloride Level 109 mmol/L (98-107) Carbon Dioxide Level 23 mmol/L (21-32) Anion Gap 12 (6-14) Blood Urea Nitrogen 30 mg/dL (7-20) Creatinine 4.3 mg/dL (0.6-1.0) Estimated GFR (Cockcroft-Gault) 14.4 BUN/Creatinine Ratio 7 (-20) Glucose Level 84 mg/dL (70-99) Calcium Level 8.5 mg/dL (8.5-10.1) Total Bilirubin 0.1 mg/dL (0.2-1.0) Aspartate Amino Transf (AST/SGOT) 16 U/L (15-37) Alanine Aminotransferase (ALT/SGPT) 13 U/L (14-59) Alkaline Phosphatase 81 U/L (46-116) Total Protein 6.2 g/dL (6.4-8.2) Albumin 3.0 g/dL (3.4-5.0) Albumin/Globulin Ratio 0.9 (1.0-1.7) Test 03/11/20 06:27 03/11/20 11:17 03/11/20 17:17 03/12/20 06:05 Glucose (Fingerstick) 108 mg/dL (70-99) 81 mg/dL (70-99) 81 mg/dL (70-99) 41 mg/dL (70-99) Test 03/12/20 06:49 03/12/20 08:18 Glucose (Fingerstick) 125 mg/dL (70-99) 99 mg/dL (70-99) Laboratory Tests Test 03/11/20 17:17 03/12/20 06:05 03/12/20 06:49 03/12/20 08:18 Glucose (Fingerstick) 81 mg/dL (70-99) 41 mg/dL (70-99) 125 mg/dL (70-99) 99 mg/dL (70-99) Problem List Problems Medical Problems: (1) Abdominal pain Status: Acute (2) Chronic abdominal pain Status: Acute (3) ESRD (end stage renal disease) on dialysis Status: Acute (4) Hypertensive urgency Status: Acute (5) Small bowel obstruction Status: Acute Justicifation of Admission Dx: Justifications for Admission: Justification of Admission Dx: Yes SOILA LUCAS MD 03/13/20 1248: SURGICAL PROGRESS NOTE Assessment/Plan Above noted, getting SBS RAFITA CONLEY CRIMINAL RECORDS TECHNICIAN Mar 12, 2020 12:27 SOILA LUCAS MD Mar 13, 2020 12:48
--- NOTE | 2020-03-12 13:15 | NUR ---
SS following up with discharge planning. SS reviewed pt chart and discussed with pt RN. Pt is currently on room air. Per RN, pt is NPO and having abdominal series today. Pt on 50 mics of Fentanyl Q2 hours. Discharge plan is to home with mother when ready. SS will continue to follow for discharge planning.
[2020-03-12] MEDS: LABETALOL 20 MG/4 ML DISP.SYRIN. IVP PRN (13:17)
--- NOTE | 2020-03-12 13:45 | RAD ---
Examination: SMALL BOWEL SERIES History: Reason: SBO , 0.5 MIN FLUORO, 15 IMAGES / Spl. Instructions: gastrografin contrast OMNIPAQUE 300MG -300mL USED / History: Comparison/Correlation: 02/07/2013 small bowel series exam Findings: Small bowel series exam was performed utilizing Omnipaque 300. Fluoroscopy was performed for 0.5 minutes. Total 5 fluoroscopic images acquired. Right upper outer quadrant surgical clips are present. Contrast mildly distends the stomach. Contrast reaches the colon at 3 hours 15 minutes. Patient reports significant tenderness and results in significant compression was not applied during fluoroscopic imaging. Terminal ileum is visualized with no stricture. No stricture otherwise along small bowel is present. No obstruction. No suspicious filling defects. Note is made of retention of oral contrast within the stomach. The patient did not consume contrast beyond the initial amount at the beginning of the exam. Impression: Moderate quantity of retained contrast within the stomach is present compatible with reported history of gastroparesis. No obstruction. No strictures. Electronically signed by: Alex Shahid MD (03/12/2020 1:42 PM) [id number]
--- NOTE | 2020-03-12 13:57 | CARD ---
MR#: [id number] Date of Study: 03/12/2020 Ordering Physician: GINA PIÑA, Referring Physician: GINA PIÑA, Tech: Mariza Reyna RDCS APPROVED REPORT EXAM: Two-dimensional and M-mode echocardiogram with Doppler and color Doppler. Other Information Quality : Good INDICATION Hypertension/HCVD 2D DIMENSIONS Left Atrium(2D)2.5 (1.6-4.0cm)IVSd1.4 (0.7-1.1cm) Aortic Root(2D)2.4 (2.0-3.7cm)LVDd4.5 (3.9-5.9cm) LVOT Diameter2.0 (1.8-2.4cm)PWd1.0 (0.7-1.1cm) LVDs2.8 (2.5-4.0cm)FS (%) 37.3 % SV63.4 mlLVEF(%)60.0 (>50%) Aortic Valve AoV Peak Presley.134.9cm/sAoV VTI23.1cm AO Peak GR.7.3mmHgLVOT Peak Presley.127.7cm/s LVOT VTI 21.82cmAO Mean GR.4mmHg ARA (VMAX)2.44fb8WXC (VTI)2.90cm2 Mitral Valve MV E Uatdikbc44.5cm/sMV DECEL [id number] MV A Uovbmnkv88.2cm/sMV KLU55vv E/A Ratio1.1MVA (PHT)3.57cm2 TDI E/Lateral E'6.9E/Medial E'12.9 Tricuspid Valve TR P. Iacvofls497ev/sRAP [id number] TR Peak Gr.00bsQpDDSP06bwKr Pulmonary Vein S1 Mrbkpcjh94.2cm/sD2 Zlqashhu59.3cm/s LEFT VENTRICLE The left ventricle is normal size. There is mild asymmetric septal left ventricular hypertrophy. The left ventricular systolic function is normal. The Ejection Fraction is 60-65%. There is normal LV seg mental wall motion. The left ventricular diastolic function and filling is normal for age. RIGHT VENTRICLE The right ventricle is normal size. The right ventricular systolic function is normal. ATRIA The left atrium size is normal. The right atrium size is normal. The interatrial septum is intact wit h no evidence for an atrial septal defect or patent foramen ovale as noted on 2-D or Doppler imaging. AORTIC VALVE The aortic valve is normal in structure and function. Doppler and Color Flow revealed no significant aortic regurgitation. There is no significant aortic valvular stenosis. MITRAL VALVE The mitral valve is normal in structure and function. There is no evidence of mitral valve prolapse. There is no mitral valve stenosis. Doppler and Color-flow revealed trace mitral regurgitation. TRICUSPID VALVE The tricuspid valve is normal in structure and function. Doppler and Color Flow revealed mild tricusp id regurgitation. There is mild pulmonary hypertension. The PA pressure was estimated at 34 mmHg. The re is no tricuspid valve stenosis. PULMONIC VALVE The pulmonary valve is normal in structure and function. Doppler and Color Flow revealed no pulmonic valvular regurgitation. There is no pulmonic valvular stenosis. GREAT VESSELS The aortic root is normal in size. The ascending aorta is not well seen. The IVC is normal in size an d collapses >50% with inspiration. PERICARDIAL EFFUSION There is no evidence of significant pericardial effusion. Critical Notification Critical Value: No <Conclusion> The left ventricular systolic function is normal. The Ejection Fraction is 60-65%. There is normal LV segmental wall motion. Trace mitral regurgitation. Mild tricuspid regurgitation. The PA pressure was estimated at 34 mmHg. There is no evidence of significant pericardial effusion. Signed by : Kevan Zheng, Electronically Approved : 03/12/2020 13:56:48
--- NOTE | 2020-03-12 14:11 | PDOC ---
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 03/12/20 1411: SURGICAL PROGRESS NOTE Subjective feels better still with pain, but improved passed contrast Vital Signs Vital Signs Date Time Temp Pulse Resp B/P (MAP) Pulse Ox O2 Delivery O2 Flow Rate FiO2 03/12/20 13:17 79 187/102 03/12/20 08:00 Room Air 03/12/20 06:27 98.0 18 95 98.0 I&O Intake and Output 03/12/20 07:00 Intake Total 0 ml Output Total 200 ml Balance -200 ml Intake Oral 0 ml Output Urine Total 200 ml # Bowel Movements 1 General: Alert, Oriented X3, Cooperative Abdomen: Soft, Other (ND, mild ttp lower abdomen ) Labs Laboratory Tests Test 03/10/20 15:10 03/10/20 17:08 03/11/20 00:39 03/11/20 05:00 Urine Opiates Screen Pos (NEG) Urine Methadone Screen Neg (NEG) Urine Barbiturates Neg (NEG) Urine Phencyclidine Screen Neg (NEG) Urine Amphetamine/Methamphetamine Neg (NEG) Urine Benzodiazepines Screen Neg (NEG) Urine Cocaine Screen Neg (NEG) Urine Cannabinoids Screen Pos (NEG) Urine Ethyl Alcohol Neg (NEG) Glucose (Fingerstick) 114 mg/dL (70-99) 93 mg/dL (70-99) White Blood Count 7.9 x10^3/uL (4.0-11.0) Red Blood Count 3.37 x10^6/uL (3.50-5.40) Hemoglobin 10.3 g/dL (12.0-15.5) Hematocrit 30.7 % (36.0-47.0) Mean Corpuscular Volume 91 fL (79-100) Mean Corpuscular Hemoglobin 31 pg (25-35) Mean Corpuscular Hemoglobin Concent 34 g/dL (31-37) Red Cell Distribution Width 16.4 % (11.5-14.5) Platelet Count 279 x10^3/uL (140-400) Neutrophils (%) (Auto) 58 % (31-73) Lymphocytes (%) (Auto) 34 % (24-48) Monocytes (%) (Auto) 6 % (0-9) Eosinophils (%) (Auto) 2 % (0-3) Basophils (%) (Auto) 1 % (0-3) Neutrophils # (Auto) 4.5 x10^3/uL (1.8-7.7) Lymphocytes # (Auto) 2.7 x10^3/uL (1.0-4.8) Monocytes # (Auto) 0.5 x10^3/uL (0.0-1.1) Eosinophils # (Auto) 0.1 x10^3/uL (0.0-0.7) Basophils # (Auto) 0.0 x10^3/uL (0.0-0.2) Sodium Level 144 mmol/L (136-145) Potassium Level 4.1 mmol/L (3.5-5.1) Chloride Level 109 mmol/L (98-107) Carbon Dioxide Level 23 mmol/L (21-32) Anion Gap 12 (6-14) Blood Urea Nitrogen 30 mg/dL (-20) Creatinine 4.3 mg/dL (0.6-1.0) Estimated GFR (Cockcroft-Gault) 14.4 BUN/Creatinine Ratio 7 (-) Glucose Level 84 mg/dL (70-99) Calcium Level 8.5 mg/dL (8.5-10.1) Total Bilirubin 0.1 mg/dL (0.2-1.0) Aspartate Amino Transf (AST/SGOT) 16 U/L (15-37) Alanine Aminotransferase (ALT/SGPT) 13 U/L (14-59) Alkaline Phosphatase 81 U/L (46-116) Total Protein 6.2 g/dL (6.4-8.2) Albumin 3.0 g/dL (3.4-5.0) Albumin/Globulin Ratio 0.9 (1.0-1.7) Test 03/11/20 06:27 03/11/20 11:17 03/11/20 17:17 03/12/20 06:05 Glucose (Fingerstick) 108 mg/dL (70-99) 81 mg/dL (70-99) 81 mg/dL (70-99) 41 mg/dL (70-99) Test 03/12/20 06:49 03/12/20 08:18 03/12/20 12:57 Glucose (Fingerstick) 125 mg/dL (70-99) 99 mg/dL (70-99) 95 mg/dL (70-99) Laboratory Tests Test 03/11/20 17:17 03/12/20 06:05 03/12/20 06:49 03/12/20 08:18 Glucose (Fingerstick) 81 mg/dL (70-99) 41 mg/dL (70-99) 125 mg/dL (70-99) 99 mg/dL (70-99) Test 03/12/20 12:57 Glucose (Fingerstick) 95 mg/dL (70-99) Problem List Problems Medical Problems: (1) Abdominal pain Status: Acute (2) Chronic abdominal pain Status: Acute (3) ESRD (end stage renal disease) on dialysis Status: Acute (4) Hypertensive urgency Status: Acute (5) Small bowel obstruction Status: Acute Assessment/Plan SBFT with contrast in colon, gastroparesis findings--no obstruction no surgery needs, can advance diet as tolerated Justicifation of Admission Dx: Justifications for Admission: Justification of Admission Dx: Yes SOILA LUCAS MD 03/13/20 1247: SURGICAL PROGRESS NOTE Assessment/Plan Agree with above RAFITA CONLEY APRN Mar 12, 2020 14:11 SOILA LUCAS MD Mar 13, 2020 12:47
[2020-03-12 15:00] VITALS: BP 158/103
--- NOTE | 2020-03-12 15:48 | PDOC ---
PROGRESS NOTES Chief Complaint Chief Complaint VTE Prophylaxis Ordered VTE Prophylaxis Devices: Contraindicated VTE Pharmacological Prophylaxi: Yes Assessment/Plan Assessment/Plan Impression: Distended small bowel loops with transition suggested within the right lower quadrant. C/W ILEUS VS small bowel obstruction. Pelvic free fluid is present and of slightly higher density. While this may be physiologic, more significant processes NOT excluded. hypertensive urgency ESRD ON DIALYSIS HX HYPERTENSION with 2017 HX THC ABUSE tobacco abuse disorder 03/11 REFUSED NG LAST PM PLAN ADMIT CONSULT NEPHROLOGY IV HYDRALAZINE 10MG Q 4 HRS PRN BP SUPPORT GI CONSULT NPO IV PROTONIX CARDIOLOGY CONSULT ECHO SQ HEPARIN DVT PROPHYLAXIS NG TUBE 34 min cc time 03/12 Justicifation of Admission Dx: Justifications for Admission: Justification of Admission Dx: Yes History of Present Illness History of Present Illness Identification/Chief Complaint Chief Complaint SEEN IN ER WITH SBO 34 year old female presents with 9-day history of worsening abdominal pain. admitted [facility] until 02/29/2020 with report of pancreatitis. hx ESRD on HD, DM, and gastroparesis. last dialysis on 03/01/2020. then, patient reports pain started. // has been unable to go to dialysis secondary to this pain. Reports she did not want to come back to the hospital and therefore tried to control the pain at home. reports associated nausea and vomiting. denies intake of poorly cooked food no alcohol use. Denies fever or chills or cough . Denies known exposure to COVID-19. Past Medical History Past Medical History Past Medical History Past Medical History: Diabetes-Type I, Hypertension, Kidney Infection, Pancreatitis, Renal Failure, Other Additional Past Medical Histor: GASTROPERESIS, DIALYSIS Past Surgical History: Cholecystectomy, Tubal ligation, Other Additional Past Surgical Histo: FISTULA LEFT ARM, SHUNT RIGHT CHEST Smoking Status: Current Every Day Smoker Alcohol Use: Occasionally Drug Use: None Vitals Vitals Vital Signs Date Time Temp Pulse Resp B/P (MAP) Pulse Ox O2 Delivery O2 Flow Rate FiO2 03/12/20 15:00 98.3 92 18 158/103 (121) 98 98.3 03/12/20 08:00 Room Air Physical Exam General: Alert, Oriented X3, Cooperative Heart: Regular rate, Normal S1, Normal S2 Lungs: Clear Abdomen: Soft, Other (ND, mild ttp lower abdomen ) Extremities: No cyanosis, Other (trace upper and lower extremity edema bilaterally ) Skin: No breakdown, No significant lesion Labs LABS Laboratory Tests Test 03/11/20 17:17 03/12/20 06:05 03/12/20 06:49 03/12/20 08:18 Glucose (Fingerstick) 81 mg/dL (70-99) 41 mg/dL (70-99) 125 mg/dL (70-99) 99 mg/dL (70-99) Test 03/12/20 12:57 Glucose (Fingerstick) 95 mg/dL (70-99) Assessment and Plan Assessmemt and Plan Problems Medical Problems: (1) Abdominal pain Status: Acute (2) Chronic abdominal pain Status: Acute (3) ESRD (end stage renal disease) on dialysis Status: Acute (4) Hypertensive urgency Status: Acute (5) Small bowel obstruction Status: Acute Comment Review of Relevant I have reviewed the following items mnie (where applicable) has been applied. Labs Laboratory Tests Test 03/10/20 17:08 03/11/20 00:39 03/11/20 05:00 03/11/20 06:27 Glucose (Fingerstick) 114 mg/dL (70-99) 93 mg/dL (70-99) 108 mg/dL (70-99) White Blood Count 7.9 x10^3/uL (4.0-11.0) Red Blood Count 3.37 x10^6/uL (3.50-5.40) Hemoglobin 10.3 g/dL (12.0-15.5) Hematocrit 30.7 % (36.0-47.0) Mean Corpuscular Volume 91 fL (79-100) Mean Corpuscular Hemoglobin 31 pg (25-35) Mean Corpuscular Hemoglobin Concent 34 g/dL (31-37) Red Cell Distribution Width 16.4 % (11.5-14.5) Platelet Count 279 x10^3/uL (140-400) Neutrophils (%) (Auto) 58 % (31-73) Lymphocytes (%) (Auto) 34 % (24-48) Monocytes (%) (Auto) 6 % (0-9) Eosinophils (%) (Auto) 2 % (0-3) Basophils (%) (Auto) 1 % (0-3) Neutrophils # (Auto) 4.5 x10^3/uL (1.8-7.7) Lymphocytes # (Auto) 2.7 x10^3/uL (1.0-4.8) Monocytes # (Auto) 0.5 x10^3/uL (0.0-1.1) Eosinophils # (Auto) 0.1 x10^3/uL (0.0-0.7) Basophils # (Auto) 0.0 x10^3/uL (0.0-0.2) Sodium Level 144 mmol/L (136-145) Potassium Level 4.1 mmol/L (3.5-5.1) Chloride Level 109 mmol/L (98-107) Carbon Dioxide Level 23 mmol/L (21-32) Anion Gap 12 (6-14) Blood Urea Nitrogen 30 mg/dL (7-20) Creatinine 4.3 mg/dL (0.6-1.0) Estimated GFR (Cockcroft-Gault) 14.4 BUN/Creatinine Ratio 7 (-20) Glucose Level 84 mg/dL (70-99) Calcium Level 8.5 mg/dL (8.5-10.1) Total Bilirubin 0.1 mg/dL (0.2-1.0) Aspartate Amino Transf (AST/SGOT) 16 U/L (15-37) Alanine Aminotransferase (ALT/SGPT) 13 U/L (14-59) Alkaline Phosphatase 81 U/L (46-116) Total Protein 6.2 g/dL (6.4-8.2) Albumin 3.0 g/dL (3.4-5.0) Albumin/Globulin Ratio 0.9 (1.0-1.7) Test 03/11/20 11:17 03/11/20 17:17 03/12/20 06:05 03/12/20 06:49 Glucose (Fingerstick) 81 mg/dL (70-99) 81 mg/dL (70-99) 41 mg/dL (70-99) 125 mg/dL (70-99) Test 03/12/20 08:18 03/12/20 12:57 Glucose (Fingerstick) 99 mg/dL (70-99) 95 mg/dL (70-99) Laboratory Tests Test 03/11/20 17:17 03/12/20 06:05 03/12/20 06:49 03/12/20 08:18 Glucose (Fingerstick) 81 mg/dL (70-99) 41 mg/dL (70-99) 125 mg/dL (70-99) 99 mg/dL (70-99) Test 03/12/20 12:57 Glucose (Fingerstick) 95 mg/dL (70-99) Medications Current Medications Fentanyl Citrate (Fentanyl 2ml Vial) 50 mcg 1X ONCE IVP ; Start 03/10/20 at 07:45; Stop 03/10/20 at 07:40; Status DC Famotidine (Pepcid Vial) 20 mg 1X ONCE IVP ; Start 03/10/20 at 07:45; Stop 03/10/20 at 07:40; Status DC Metoclopramide HCl (Reglan Vial) 10 mg 1X ONCE IVP ; Start 03/10/20 at 07:45; Stop 03/10/20 at 07:40; Status DC Hyoscyamine (Anaspaz) 0.125 mg 1X ONCE PO Last administered on 03/10/20at 07:57; Start 03/10/20 at 08:00; Stop 03/10/20 at 08:01; Status DC Fentanyl Citrate (Fentanyl 2ml Vial) 75 mcg 1X ONCE IM Last administered on 03/10/20at 07:57; Start 03/10/20 at 08:00; Stop 03/10/20 at 08:01; Status DC Metoclopramide HCl (Reglan Vial) 10 mg 1X ONCE IM Last administered on 03/10/20at 07:56; Start 03/10/20 at 08:00; Stop 03/10/20 at 08:01; Status DC Famotidine (Pepcid) 20 mg 1X ONCE PO Last administered on 03/10/20at 07:57; Start 03/10/20 at 08:00; Stop 03/10/20 at 08:01; Status DC Clonidine HCl (Catapres) 0.1 mg 1X ONCE PO Last administered on 03/10/20at 08:41; Start 03/10/20 at 08:30; Stop 03/10/20 at 08:50; Status DC Hydromorphone HCl (Dilaudid) 1 mg 1X ONCE IM Last administered on 03/10/20at 09:41; Start 03/10/20 at 09:00; Stop 03/10/20 at 09:01; Status DC Prochlorperazine Edisylate (Compazine) 10 mg 1X ONCE IM Last administered on 03/10/20at 09:39; Start 03/10/20 at 09:00; Stop 03/10/20 at 09:01; Status DC Clonidine HCl (Catapres Tts-2) 1 patch 1X ONCE TD Last administered on 03/10/20at 09:35; Start 03/10/20 at 09:00; Stop 03/10/20 at 09:01; Status DC Insulin Human Lispro (HumaLOG) 0-5 UNITS TIDWMEALS SQ ; Start 03/10/20 at 12:00 Dextrose (Dextrose 50%-Water Syringe) 12.5 gm PRN Q15MIN PRN IV SEE COMMENTS Last administered on 03/12/20at 06:15; Start 03/10/20 at 09:00 Lidocaine (Lidoderm) 1 patch DAILY TD Last administered on 03/12/20at 07:44; Start 03/10/20 at 10:30 Miscellaneous (Lidoderm Patch Removal) 1 ea QHS MC Last administered on 03/11/20at 21:00; Start 03/10/20 at 21:00 Acetaminophen (Tylenol Supp) 650 mg PRN Q4HRS PRN SC TEMP OVER 100.4F OR MILD PAIN; Start 03/10/20 at 10:30 Albuterol/ Ipratropium (Duoneb) 3 ml Q4HRS NEB ; Start 03/10/20 at 12:00; Stop 03/10/20 at 11:59; Status DC Hydralazine HCl (Apresoline Inj) 10 mg PRN Q4HRS PRN IVP ELEVATED BP, SEE COMMENTS; Start 03/10/20 at 10:30; Stop 03/10/20 at 12:03; Status DC Labetalol HCl (Normodyne Iv Push) 20 mg PRN Q2HR PRN IVP HYPERTENSION Last administered on 03/12/20at 13:17; Start 03/10/20 at 12:00 Fentanyl Citrate (Fentanyl 2ml Vial) 50 mcg PRN Q3HRS PRN IVP PAIN Last administered on 03/11/20at 00:36; Start 03/10/20 at 12:00; Stop 03/11/20 at 08:51; Status DC Promethazine HCl (Phenergan Supp) 25 mg PRN Q6HRS PRN SC NAUSEA/VOMITING Last administered on 03/10/20 16:35; Start 03/10/20 at 12:00 Albuterol Sulfate (Ventolin Neb Soln) 2.5 mg PRN Q4HRS PRN NEB SHORTNESS OF BREATH; Start 03/10/20 at 12:15 Hydralazine HCl (Apresoline Inj) 20 mg PRN Q4HRS PRN IVP ELEVATED BP, SEE COMMENTS Last administered on 03/12/20 07:44; Start 03/10/20 at 12:15 Pantoprazole Sodium (PROTONIX VIAL for IV PUSH) 40 mg DAILYAC IVP Last administered on 03/12/20 07:43; Start 03/10/20 at 13:00 Fentanyl Citrate (Fentanyl 2ml Vial) 75 mcg 1X ONCE IM Last administered on 03/10/20 13:29; Start 03/10/20 at 12:30; Stop 03/10/20 at 12:31; Status DC Prochlorperazine Edisylate (Compazine) 10 mg PRN Q6HRS PRN IV NAUSEA/VOMITING Last administered on 03/12/20at 13:17; Start 03/10/20 at 13:30 Nicardipine HCl 50 mg/Sodium Chloride 250 ml @ 25 mls/hr CONT PRN IV SEE I/O RECORD Last administered on 03/11/20at 02:11; Start 03/10/20 at 16:00 Fentanyl Citrate (Fentanyl 2ml Vial) 25 mcg 1X ONCE IVP Last administered on 03/10/20at 20:33; Start 03/10/20 at 20:15; Stop 03/10/20 at 20:16; Status DC Fentanyl Citrate (Fentanyl 2ml Vial) 50 mcg PRN Q2HRS PRN IV PAIN Last administered on 03/12/20 13:16; Start 03/11/20 at 06:45 Scopolamine (Transderm-Scop) 1 patch Q3DAYS@0700 TD Last administered on 03/11/20at 07:45; Start 03/11/20 at 07:00 Iohexol (Omnipaque 300 Mg/ml) 400 ml 1X ONCE PO ; Start 03/11/20 at 09:45; Stop 03/11/20 at 09:49; Status DC Info (CONTRAST GIVEN -- Rx MONITORING) 1 each PRN DAILY PRN MC SEE COMMENTS; Start 03/11/20 at 10:00; Stop 03/13/20 at 09:59 Lorazepam (Ativan Inj) 0.5 mg 1X ONCE IVP Last administered on 03/11/20at 13:23; Start 03/11/20 at 12:45; Stop 03/11/20 at 12:46; Status DC Phenol (Chloraseptic) 1 spray PRN Q2HR PRN PO SORE THROAT Last administered on 03/12/20at 03:39; Start 03/11/20 at 17:45 Diphenhydramine HCl (Benadryl) 12.5 mg 1X ONCE IVP Last administered on 03/11/20at 18:11; Start 03/11/20 at 17:45; Stop 03/11/20 at 17:46; Status DC Bisacodyl (Dulcolax Supp) 10 mg PRN DAILY PRN SC CONSTIPATION; Start 03/11/20 at 17:45 Diphenhydramine HCl (Benadryl) 12.5 mg PRN Q4HRS PRN IVP itching Last adminis tered on 03/12/20at 13:17; Start 03/11/20 at 20:15 Iohexol (Omnipaque 300 Mg/ml) 400 ml 1X ONCE PO Last administered on 03/12/20at 09:00; Start 03/12/20 at 08:30; Stop 03/12/20 at 08:31; Status DC Active Scripts Active Orphenadrine Citrate 100 Mg Tablet.er 1 Tab PO BID PRN 10 Days Reglan (Metoclopramide Hcl) 10 Mg Tablet 1 Tab PO QID PRN 5 Days before food and bedtime Promethazine Hcl 12.5 Mg Tablet 12.5 Mg PO Q6H PRN Levsin-Sl (Hyoscyamine Sulfate) 0.125 Mg Tab.subl 0.125 Mg SL PRN Q4-6HRS PRN Isosorbide Mononitrate Er (Isosorbide Mononitrate) 30 Mg Tab.er.24h 1 Tab PO DAILY 30 Days Lidocaine PATCH (Lidocaine) 1 Each Adh..patch 1 Patch TD DAILY 30 Days Cyclobenzaprine Hcl 10 Mg Tablet 10 Mg PO PRN Q6HRS PRN 10 Days Reported Amlodipine Besylate 10 Mg Tablet 10 Mg PO DAILY Hydralazine Hcl 50 Mg Tablet 1 Tab PO TID Carvedilol 25 Mg Tablet 25 Mg PO BIDWMEALS Promethazine Hcl 25 Mg Tablet 1 Tab PO PRN Q6HRS Miralax (Polyethylene Glycol 3350) 17 Gm Powd.pack 1 Packet PO BID Lantus (Insulin Glargine,Hum.rec.anlog) 100 Unit/1 Ml Vial 25 Unit SQ QHS Novolog (Insulin Aspart) 100 Unit/1 Ml Cartridge 4 Unit SQ TID Lexapro (Escitalopram Oxalate) 20 Mg Tablet 1 Tab PO DAILY Pantoprazole Sodium (Pantoprazole Sodium) 40 Mg Tablet.dr 1 Tab PO DAILY Dicyclomine Hcl 10 Mg Capsule 1 Cap PO TID Vitals/I & O Vital Sign - Last 24 Hours 03/11/20 03/11/20 03/11/20 03/11/20 15:55 16:30 19:45 20:00 Temp 98.8 98.8 Pulse 98 100 Resp 16 B/P (MAP) 163/102 127/75 (92) Pulse Ox 98 98 O2 Delivery Room Air Room Air Room Air 03/11/20 03/11/20 03/11/20 03/12/20 20:52 21:25 22:40 00:37 Temp 98.6 98.6 Pulse 83 Resp 20 20 18 20 B/P (MAP) 159/91 (113) Pulse Ox 98 98 96 96 O2 Delivery Room Air Room Air Room Air Room Air 03/12/20 03/12/20 03/12/20 03/12/20 01:10 03:05 03:55 04:34 Temp 98.3 98.3 Pulse 84 Resp 20 18 20 22 B/P (MAP) 177/104 (128) Pulse Ox 96 97 97 O2 Delivery Room Air Room Air Room Air Room Air 03/12/20 03/12/20 03/12/20 03/12/20 06:27 07:44 08:00 13:17 Temp 98.0 98.0 Pulse 79 79 79 Resp 18 B/P (MAP) 187/102 (130) 187/102 187/102 Pulse Ox 95 O2 Delivery Room Air Room Air 03/12/20 15:00 Temp 98.3 98.3 Pulse 92 Resp 18 B/P (MAP) 158/103 (121) Pulse Ox 98 Intake and Output 03/11/20 03/11/20 03/12/20 15:00 23:00 07:00 Intake Total 0 ml 0 ml 0 ml Output Total 0 ml 200 ml Balance 0 ml 0 ml -200 ml Justicifation of Admission Dx: Justifications for Admission: Justification of Admission Dx: Yes GINA PIÑA MD Mar 12, 2020 15:48
[2020-03-12] MEDS: amLODIPine BESYLATE 10 MG TABLET PO SCH (18:26)
[2020-03-12] MEDS: CARVEDILOL 12.5 MG TABLET. PO SCH (18:27)
[2020-03-12] MEDS ORDERED: ISOSORBIDE MONONITRATE ER 30 MG TAB.ER.24H PO SCH (19:00)
[2020-03-12 20:00] VITALS: BP 151/96
[2020-03-12] MEDS: PATCH REMOVAL. MC SCH (21:00)
[2020-03-12 22:03] VITALS: BP 151/96
[2020-03-12 23:00] VITALS: BP 137/77
[2020-03-13 03:00] VITALS: BP 157/88
[2020-03-13] MEDS: diphenhydrAMINE 50 MG/ML VIAL IVP PRN ×4 (03:29→20:28)
[2020-03-13] MEDS: fentaNYL PF VIAL 100 MCG/2 ML VIAL IV PRN ×3 (03:31→11:10)
--- NOTE | 2020-03-13 03:52 | NUR ---
Pt experienced cramping of hands bilaterally. States the fentanyl given for abdominal pain also helped the cramping subside.
[2020-03-13 04:13] LABS: BASO % 1 % (0-3); EOS # 0.3 x10^3/uL (0.0-0.7); EOS % 5 % (0-3); HEMOGLOBIN 9.7 g/dL (12.0-15.5); LYMPH # 2.8 x10^3/uL (1.0-4.8); LYMPH % 45 % (24-48); MEAN CORPUSCULAR HEMOGLOBIN 30 pg (25-35); MEAN CORPUSCULAR HGB CONC 33 g/dL (31-37); MEAN CORPUSCULAR VOLUME 90 fL (79-100); MONO # 0.5 x10^3/uL (0.0-1.1); MONO % 9 % (0-9); NEUT # 2.6 x10^3/uL (1.8-7.7); NEUT % 41 % (31-73); PLATELET COUNT 244 x10^3/uL (140-400); RED BLOOD COUNT 3.21 x10^6/uL (3.50-5.40); RED CELL DISTRIBUTION WIDTH 16.9 % (11.5-14.5); WHITE BLOOD COUNT 6.3 x10^3/uL (4.0-11.0)
[2020-03-13 04:34] LABS: ALBUMIN/GLOBULIN RATIO 0.9 (1.0-1.7); CALCIUM 8.1 mg/dL (8.5-10.1); CREATININE 4.7 mg/dL (0.6-1.0); POTASSIUM 3.7 mmol/L (3.5-5.1); TOTAL BILIRUBIN 0.1 mg/dL (0.2-1.0); TOTAL PROTEIN 6.5 g/dL (6.4-8.2)
[2020-03-13 07:15] VITALS: BP 184/103
[2020-03-13] MEDS: PANTOPRAZOLE IV PUSH 40 MG VIAL. IVP SCH (07:52)
[2020-03-13] MEDS: LIDOCAINE (700MG/PATCH) PATCH. TD SCH ×3 (07:53→14:21)
[2020-03-13] MEDS: amLODIPine BESYLATE 10 MG TABLET PO SCH (07:53)
[2020-03-13] MEDS: CARVEDILOL 12.5 MG TABLET. PO SCH ×2 (07:53→17:18)
[2020-03-13] MEDS: INSULIN LISPRO 300 UNITS/3 ML VIAL. SQ SCH ×3 (07:53→17:00)
--- NOTE | 2020-03-13 08:19 | PDOC ---
PROGRESS NOTES Chief Complaint Chief Complaint VTE Prophylaxis Ordered VTE Prophylaxis Devices: Contraindicated VTE Pharmacological Prophylaxi: Yes Assessment/Plan Assessment/Plan Impression: Distended small bowel loops with transition suggested within the right lower quadrant. C/W ILEUS VS small bowel obstruction. Pelvic free fluid is present and of slightly higher density. While this may be physiologic, more significant processes NOT excluded. hypertensive urgency ESRD ON DIALYSIS HX HYPERTENSION with 2017 HX THC ABUSE tobacco abuse disorder 03/11 REFUSED NG LAST PM 03/12 passing few loose stools 03/13 STILL IN MILD PAIN plan d/c tomorrow PLAN ADMIT CONSULT NEPHROLOGY IV HYDRALAZINE 10MG Q 4 HRS PRN BP SUPPORT GI CONSULT NPO IV PROTONIX CARDIOLOGY CONSULT ECHO SQ HEPARIN DVT PROPHYLAXIS NG TUBE refused again 03/12 Justicifation of Admission Dx: Justifications for Admission: Justification of Admission Dx: Yes History of Present Illness History of Present Illness Identification/Chief Complaint Chief Complaint SEEN IN ER WITH SBO 34 year old female presents with 9-day history of worsening abdominal pain. admitted [facility] until 02/29/2020 with report of pancreatitis. hx ESRD on HD, DM, and gastroparesis. last dialysis on 03/01/2020. then, patient reports pain started. // has been unable to go to dialysis secondary to this pain. Reports she did not want to come back to the hospital and therefore tried to control the pain at home. reports associated nausea and vomiting. denies intake of poorly cooked food no alcohol use. Denies fever or chills or cough . Denies known exposure to COVID-19. Past Medical History Past Medical History Past Medical History Past Medical History: Diabetes-Type I, Hypertension, Kidney Infection, Pancreatitis, Renal Failure, Other Additional Past Medical Histor: GASTROPERESIS, DIALYSIS Past Surgical History: Cholecystectomy, Tubal ligation, Other Additional Past Surgical Histo: FISTULA LEFT ARM, SHUNT RIGHT CHEST Smoking Status: Current Every Day Smoker Alcohol Use: Occasionally Drug Use: None Vitals Vitals Vital Signs Date Time Temp Pulse Resp B/P (MAP) Pulse Ox O2 Delivery O2 Flow Rate FiO2 03/13/20 07:52 Room Air 03/13/20 07:15 99.1 86 18 184/103 (130) 97 99.1 Physical Exam General: Alert, Oriented X3, Cooperative, mild distress Heart: Regular rate, Normal S1, Normal S2 Lungs: Clear Abdomen: Normal bowel sounds, Soft, Other (ND, mild ttp lower abdomen ) Extremities: No cyanosis, Other (trace upper and lower extremity edema bilaterally ) Skin: No breakdown, No significant lesion Labs LABS Laboratory Tests Test 03/12/20 12:57 03/12/20 18:12 03/12/20 20:39 03/13/20 04:00 Glucose (Fingerstick) 95 mg/dL (70-99) 168 mg/dL (70-99) 135 mg/dL (70-99) White Blood Count 6.3 x10^3/uL (4.0-11.0) Red Blood Count 3.21 x10^6/uL (3.50-5.40) Hemoglobin 9.7 g/dL (12.0-15.5) Hematocrit 29.0 % (36.0-47.0) Mean Corpuscular Volume 90 fL (79-100) Mean Corpuscular Hemoglobin 30 pg (25-35) Mean Corpuscular Hemoglobin Concent 33 g/dL (31-37) Red Cell Distribution Width 16.9 % (11.5-14.5) Platelet Count 244 x10^3/uL (140-400) Neutrophils (%) (Auto) 41 % (31-73) Lymphocytes (%) (Auto) 45 % (24-48) Monocytes (%) (Auto) 9 % (0-9) Eosinophils (%) (Auto) 5 % (0-3) Basophils (%) (Auto) 1 % (0-3) Neutrophils # (Auto) 2.6 x10^3/uL (1.8-7.7) Lymphocytes # (Auto) 2.8 x10^3/uL (1.0-4.8) Monocytes # (Auto) 0.5 x10^3/uL (0.0-1.1) Eosinophils # (Auto) 0.3 x10^3/uL (0.0-0.7) Basophils # (Auto) 0.0 x10^3/uL (0.0-0.2) Sodium Level 138 mmol/L (136-145) Potassium Level 3.7 mmol/L (3.5-5.1) Chloride Level 101 mmol/L (98-107) Carbon Dioxide Level 28 mmol/L (21-32) Anion Gap 9 (6-14) Blood Urea Nitrogen 22 mg/dL (7-20) Creatinine 4.7 mg/dL (0.6-1.0) Estimated GFR (Cockcroft-Gault) 13.0 BUN/Creatinine Ratio 5 (6-20) Glucose Level 147 mg/dL (70-99) Calcium Level 8.1 mg/dL (8.5-10.1) Total Bilirubin 0.1 mg/dL (0.2-1.0) Aspartate Amino Transf (AST/SGOT) 11 U/L (15-37) Alanine Aminotransferase (ALT/SGPT) 10 U/L (14-59) Alkaline Phosphatase 82 U/L (46-116) Total Protein 6.5 g/dL (6.4-8.2) Albumin 3.0 g/dL (3.4-5.0) Albumin/Globulin Ratio 0.9 (1.0-1.7) Test 03/13/20 07:19 Glucose (Fingerstick) 139 mg/dL (70-99) Assessment and Plan Assessmemt and Plan Problems Medical Problems: (1) Abdominal pain Status: Acute (2) Chronic abdominal pain Status: Acute (3) ESRD (end stage renal disease) on dialysis Status: Acute (4) Hypertensive urgency Status: Acute (5) Small bowel obstruction Status: Acute Comment Review of Relevant I have reviewed the following items mine (where applicable) has been applied. Labs Laboratory Tests Test 03/11/20 11:17 03/11/20 17:17 03/12/20 06:05 03/12/20 06:49 Glucose (Fingerstick) 81 mg/dL (70-99) 81 mg/dL (70-99) 41 mg/dL (70-99) 125 mg/dL (70-99) Test 03/12/20 08:18 03/12/20 12:57 03/12/20 18:12 03/12/20 20:39 Glucose (Fingerstick) 99 mg/dL (70-99) 95 mg/dL (70-99) 168 mg/dL (70-99) 135 mg/dL (70-99) Test 03/13/20 04:00 03/13/20 07:19 White Blood Count 6.3 x10^3/uL (4.0-11.0) Red Blood Count 3.21 x10^6/uL (3.50-5.40) Hemoglobin 9.7 g/dL (12.0-15.5) Hematocrit 29.0 % (36.0-47.0) Mean Corpuscular Volume 90 fL (79-100) Mean Corpuscular Hemoglobin 30 pg (25-35) Mean Corpuscular Hemoglobin Concent 33 g/dL (31-37) Red Cell Distribution Width 16.9 % (11.5-14.5) Platelet Count 244 x10^3/uL (140-400) Neutrophils (%) (Auto) 41 % (31-73) Lymphocytes (%) (Auto) 45 % (24-48) Monocytes (%) (Auto) 9 % (0-9) Eosinophils (%) (Auto) 5 % (0-3) Basophils (%) (Auto) 1 % (0-3) Neutrophils # (Auto) 2.6 x10^3/uL (1.8-7.7) Lymphocytes # (Auto) 2.8 x10^3/uL (1.0-4.8) Monocytes # (Auto) 0.5 x10^3/uL (0.0-1.1) Eosinophils # (Auto) 0.3 x10^3/uL (0.0-0.7) Basophils # (Auto) 0.0 x10^3/uL (0.0-0.2) Sodium Level 138 mmol/L (136-145) Potassium Level 3.7 mmol/L (3.5-5.1) Chloride Level 101 mmol/L (98-107) Carbon Dioxide Level 28 mmol/L (21-32) Anion Gap 9 (6-14) Blood Urea Nitrogen 22 mg/dL (7-20) Creatinine 4.7 mg/dL (0.6-1.0) Estimated GFR (Cockcroft-Gault) 13.0 BUN/Creatinine Ratio 5 (6-20) Glucose Level 147 mg/dL (70-99) Calcium Level 8.1 mg/dL (8.5-10.1) Total Bilirubin 0.1 mg/dL (0.2-1.0) Aspartate Amino Transf (AST/SGOT) 11 U/L (15-37) Alanine Aminotransferase (ALT/SGPT) 10 U/L (14-59) Alkaline Phosphatase 82 U/L (46-116) Total Protein 6.5 g/dL (6.4-8.2) Albumin 3.0 g/dL (3.4-5.0) Albumin/Globulin Ratio 0.9 (1.0-1.7) Glucose (Fingerstick) 139 mg/dL (70-99) Laboratory Tests Test 03/12/20 12:57 03/12/20 18:12 03/12/20 20:39 03/13/20 04:00 Glucose (Fingerstick) 95 mg/dL (70-99) 168 mg/dL (70-99) 135 mg/dL (70-99) White Blood Count 6.3 x10^3/uL (4.0-11.0) Red Blood Count 3.21 x10^6/uL (3.50-5.40) Hemoglobin 9.7 g/dL (12.0-15.5) Hematocrit 29.0 % (36.0-47.0) Mean Corpuscular Volume 90 fL (79-100) Mean Corpuscular Hemoglobin 30 pg (25-35) Mean Corpuscular Hemoglobin Concent 33 g/dL (31-37) Red Cell Distribution Width 16.9 % (11.5-14.5) Platelet Count 244 x10^3/uL (140-400) Neutrophils (%) (Auto) 41 % (31-73) Lymphocytes (%) (Auto) 45 % (24-48) Monocytes (%) (Auto) 9 % (0-9) Eosinophils (%) (Auto) 5 % (0-3) Basophils (%) (Auto) 1 % (0-3) Neutrophils # (Auto) 2.6 x10^3/uL (1.8-7.7) Lymphocytes # (Auto) 2.8 x10^3/uL (1.0-4.8) Monocytes # (Auto) 0.5 x10^3/uL (0.0-1.1) Eosinophils # (Auto) 0.3 x10^3/uL (0.0-0.7) Basophils # (Auto) 0.0 x10^3/uL (0.0-0.2) Sodium Level 138 mmol/L (136-145) Potassium Level 3.7 mmol/L (3.5-5.1) Chloride Level 101 mmol/L (98-107) Carbon Dioxide Level 28 mmol/L (21-32) Anion Gap 9 (6-14) Blood Urea Nitrogen 22 mg/dL (7-20) Creatinine 4.7 mg/dL (0.6-1.0) Estimated GFR (Cockcroft-Gault) 13.0 BUN/Creatinine Ratio 5 (6-20) Glucose Level 147 mg/dL (70-99) Calcium Level 8.1 mg/dL (8.5-10.1) Total Bilirubin 0.1 mg/dL (0.2-1.0) Aspartate Amino Transf (AST/SGOT) 11 U/L (15-37) Alanine Aminotransferase (ALT/SGPT) 10 U/L (14-59) Alkaline Phosphatase 82 U/L (46-116) Total Protein 6.5 g/dL (6.4-8.2) Albumin 3.0 g/dL (3.4-5.0) Albumin/Globulin Ratio 0.9 (1.0-1.7) Test 03/13/20 07:19 Glucose (Fingerstick) 139 mg/dL (70-99) Medications Current Medications Fentanyl Citrate (Fentanyl 2ml Vial) 50 mcg 1X ONCE IVP ; Start 03/10/20 at 07:45; Stop 03/10/20 at 07:40; Status DC Famotidine (Pepcid Vial) 20 mg 1X ONCE IVP ; Start 03/10/20 at 07:45; Stop 03/10/20 at 07:40; Status DC Metoclopramide HCl (Reglan Vial) 10 mg 1X ONCE IVP ; Start 03/10/20 at 07:45; Stop 03/10/20 at 07:40; Status DC Hyoscyamine (Anaspaz) 0.125 mg 1X ONCE PO Last administered on 03/10/20at 07:57; Start 03/10/20 at 08:00; Stop 03/10/20 at 08:01; Status DC Fentanyl Citrate (Fentanyl 2ml Vial) 75 mcg 1X ONCE IM Last administered on 03/10/20at 07:57; Start 03/10/20 at 08:00; Stop 03/10/20 at 08:01; Status DC Metoclopramide HCl (Reglan Vial) 10 mg 1X ONCE IM Last administered on 03/10/20at 07:56; Start 03/10/20 at 08:00; Stop 03/10/20 at 08:01; Status DC Famotidine (Pepcid) 20 mg 1X ONCE PO Last administered on 03/10/20at 07:57; Start 03/10/20 at 08:00; Stop 03/10/20 at 08:01; Status DC Clonidine HCl (Catapres) 0.1 mg 1X ONCE PO Last administered on 03/10/20at 08:41; Start 03/10/20 at 08:30; Stop 03/10/20 at 08:50; Status DC Hydromorphone HCl (Dilaudid) 1 mg 1X ONCE IM Last administered on 03/10/20at 09:41; Start 03/10/20 at 09:00; Stop 03/10/20 at 09:01; Status DC Prochlorperazine Edisylate (Compazine) 10 mg 1X ONCE IM Last administered on 03/10/20at 09:39; Start 03/10/20 at 09:00; Stop 03/10/20 at 09:01; Status DC Clonidine HCl (Catapres Tts-2) 1 patch 1X ONCE TD Last administered on 03/10/20at 09:35; Start 03/10/20 at 09:00; Stop 03/10/20 at 09:01; Status DC Insulin Human Lispro (HumaLOG) 0-5 UNITS TIDWMEALS SQ ; Start 03/10/20 at 12:00 Dextrose (Dextrose 50%-Water Syringe) 12.5 gm PRN Q15MIN PRN IV SEE COMMENTS Last administered on 03/12/20at 06:15; Start 03/10/20 at 09:00 Lidocaine (Lidoderm) 1 patch DAILY TD Last administered on 03/13/20at 07:53; Start 03/10/20 at 10:30 Miscellaneous (Lidoderm Patch Removal) 1 ea QHS MC Last administered on 03/12/20at 21:00; Start 03/10/20 at 21:00 Acetaminophen (Tylenol Supp) 650 mg PRN Q4HRS PRN NV TEMP OVER 100.4F OR MILD PAIN; Start 03/10/20 at 10:30 Albuterol/ Ipratropium (Duoneb) 3 ml Q4HRS NEB ; Start 03/10/20 at 12:00; Stop 03/10/20 at 11:59; Status DC Hydralazine HCl (Apresoline Inj) 10 mg PRN Q4HRS PRN IVP ELEVATED BP, SEE COMMENTS; Start 03/10/20 at 10:30; Stop 03/10/20 at 12:03; Status DC Labetalol HCl (Normodyne Iv Push) 20 mg PRN Q2HR PRN IVP HYPERTENSION, 1st CHOICE Last administered on 03/12/20at 13:17; Start 03/10/20 at 12:00 Fentanyl Citrate (Fentanyl 2ml Vial) 50 mcg PRN Q3HRS PRN IVP PAIN Last administered on 03/11/20at 00:36; Start 03/10/20 at 12:00; Stop 03/11/20 at 08:51; Status DC Promethazine HCl (Phenergan Supp) 25 mg PRN Q6HRS PRN NV NAUSEA/VOMITING Last administered on 03/10/20at 16:35; Start 03/10/20 at 12:00 Albuterol Sulfate (Ventolin Neb Soln) 2.5 mg PRN Q4HRS PRN NEB SHORTNESS OF BREATH; Start 03/10/20 at 12:15 Hydralazine HCl (Apresoline Inj) 20 mg PRN Q4HRS PRN IVP ELEVATED BP, 2nd CHOICE Last administered on 03/12/20at 07:44; Start 03/10/20 at 12:15 Pantoprazole Sodium (PROTONIX VIAL for IV PUSH) 40 mg DAILYAC IVP Last administered on 03/13/20at 07:52; Start 03/10/20 at 13:00 Fentanyl Citrate (Fentanyl 2ml Vial) 75 mcg 1X ONCE IM Last administered on 03/10/20at 13:29; Start 03/10/20 at 12:30; Stop 03/10/20 at 12:31; Status DC Prochlorperazine Edisylate (Compazine) 10 mg PRN Q6HRS PRN IV NAUSEA/VOMITING Last administered on 03/12/20at 23:21; Start 03/10/20 at 13:30 Nicardipine HCl 50 mg/Sodium Chloride 250 ml @ 25 mls/hr CONT PRN IV SEE I/O RECORD Last administered on 03/11/20at 02:11; Start 03/10/20 at 16:00 Fentanyl Citrate (Fentanyl 2ml Vial) 25 mcg 1X ONCE IVP Last administered on 03/10/20at 20:33; Start 03/10/20 at 20:15; Stop 03/10/20 at 20:16; Status DC Fentanyl Citrate (Fentanyl 2ml Vial) 50 mcg PRN Q2HRS PRN IV PAIN Last administered on 03/13/20at 07:52; Start 03/11/20 at 06:45 Scopolamine (Transderm-Scop) 1 patch Q3DAYS@0700 TD Last administered on 03/11/20at 07:45; Start 03/11/20 at 07:00 Iohexol (Omnipaque 300 Mg/ml) 400 ml 1X ONCE PO ; Start 03/11/20 at 09:45; Stop 03/11/20 at 09:49; Status DC Info (CONTRAST GIVEN -- Rx MONITORING) 1 each PRN DAILY PRN MC SEE COMMENTS; Start 03/11/20 at 10:00; Stop 03/13/20 at 09:59 Lorazepam (Ativan Inj) 0.5 mg 1X ONCE IVP Last administered on 03/11/20at 13:23; Start 03/11/20 at 12:45; Stop 03/11/20 at 12:46; Status DC Phenol (Chloraseptic) 1 spray PRN Q2HR PRN PO SORE THROAT Last administered on 03/12/20at 03:39; Start 03/11/20 at 17:45 Diphenhydramine HCl (Benadryl) 12.5 mg 1X ONCE IVP Last administered on 03/11/20at 18:11; Start 03/11/20 at 17:45; Stop 03/11/20 at 17:46; Status DC Bisacodyl (Dulcolax Supp) 10 mg PRN DAILY PRN NV CONSTIPATION; Start 03/11/20 at 17:45 Diphenhydramine HCl (Benadryl) 12.5 mg PRN Q4HRS PRN IVP itching Last administered on 03/13/20at 07:52; Start 03/11/20 at 20:15 Iohexol (Omnipaque 300 Mg/ml) 400 ml 1X ONCE PO Last administered on 03/12/20at 09:00; Start 03/12/20 at 08:30; Stop 03/12/20 at 08:31; Status DC Amlodipine Besylate (Norvasc) 10 mg DAILY PO Last administered on 03/12/20at 18:26; Start 03/12/20 at 19:00 Hydralazine HCl (Apresoline) 50 mg TID PO Last administered on 03/12/20at 20:31; Start 03/12/20 at 21:00 Isosorbide Mononitrate (Imdur) 30 mg DAILY PO Last administered on 03/12/20at 18:26; Start 03/12/20 at 19:00; Stop 03/12/20 at 18:40; Status DC Carvedilol (Coreg) 25 mg BIDWMEALS PO Last administered on 03/12/20at 18:27; Start 03/12/20 at 19:00 Active Scripts Active Orphenadrine Citrate 100 Mg Tablet.er 1 Tab PO BID PRN 10 Days Reglan (Metoclopramide Hcl) 10 Mg Tablet 1 Tab PO QID PRN 5 Days before food and bedtime Promethazine Hcl 12.5 Mg Tablet 12.5 Mg PO Q6H PRN Levsin-Sl (Hyoscyamine Sulfate) 0.125 Mg Tab.subl 0.125 Mg SL PRN Q4-6HRS PRN Isosorbide Mononitrate Er (Isosorbide Mononitrate) 30 Mg Tab.er.24h 1 Tab PO DAILY 30 Days Lidocaine PATCH (Lidocaine) 1 Each Adh..patch 1 Patch TD DAILY 30 Days Cyclobenzaprine Hcl 10 Mg Tablet 10 Mg PO PRN Q6HRS PRN 10 Days Reported Amlodipine Besylate 10 Mg Tablet 10 Mg PO DAILY Hydralazine Hcl 50 Mg Tablet 1 Tab PO TID Carvedilol 25 Mg Tablet 25 Mg PO BIDWMEALS Promethazine Hcl 25 Mg Tablet 1 Tab PO PRN Q6HRS Miralax (Polyethylene Glycol 3350) 17 Gm Powd.pack 1 Packet PO BID Lantus (Insulin Glargine,Hum.rec.anlog) 100 Unit/1 Ml Vial 25 Unit SQ QHS Novolog (Insulin Aspart) 100 Unit/1 Ml Cartridge 4 Unit SQ TID Lexapro (Escitalopram Oxalate) 20 Mg Tablet 1 Tab PO DAILY Pantoprazole Sodium (Pantoprazole Sodium) 40 Mg Tablet.dr 1 Tab PO DAILY Dicyclomine Hcl 10 Mg Capsule 1 Cap PO TID Vitals/I & O Vital Sign - Last 24 Hours 03/12/20 03/12/20 03/12/20 03/12/20 13:17 15:00 18:26 18:26 Temp 98.3 98.3 Pulse 79 92 92 92 Resp 18 B/P (MAP) 187/102 158/103 (121) 158/103 158/103 Pulse Ox 98 03/12/20 03/12/20 03/12/20 03/12/20 18:27 20:00 20:00 20:30 Temp 98.3 98.3 Pulse 92 95 Resp 18 20 B/P (MAP) 158/103 151/96 (114) Pulse Ox 97 97 O2 Delivery Room Air Room Air Room Air 03/12/20 03/12/20 03/12/20 03/12/20 20:31 21:05 23:00 23:22 Temp 98.2 98.2 Pulse 95 88 Resp 20 18 20 B/P (MAP) 151/96 137/77 (97) Pulse Ox 97 96 97 O2 Delivery Room Air Room Air Room Air 03/13/20 03/13/20 03/13/20 03/13/20 00:01 03:00 03:31 04:04 Temp 98.4 98.4 Pulse 82 Resp 20 18 20 20 B/P (MAP) 157/88 (111) Pulse Ox 97 98 97 97 O2 Delivery Room Air Room Air Room Air Room Air 03/13/20 03/13/20 07:15 07:52 Temp 99.1 99.1 Pulse 86 Resp 18 B/P (MAP) 184/103 (130) Pulse Ox 97 O2 Delivery Room Air Room Air Intake and Output 03/12/20 03/12/20 03/13/20 15:00 23:00 07:00 Intake Total 300 ml 0 ml Balance 300 ml 0 ml Justicifation of Admission Dx: Justifications for Admission: Justification of Admission Dx: Yes GINA PIÑA MD Mar 13, 2020 08:19
[2020-03-13] MEDS ORDERED: IV NORMAL SALINE 1000ML BAG 1,000 ML IV PRN ×2 (08:51)
[2020-03-13] MEDS ORDERED: DIALYSIS PATIENT. MC PRN (09:00)
--- NOTE | 2020-03-13 09:54 | PDOC ---
RAFITA CONLEY PRIVATE SECRETARY 03/13/20 0954: SURGICAL PROGRESS NOTE Subjective tolerating clears no n/v having stools Vital Signs Vital Signs Date Time Temp Pulse Resp B/P (MAP) Pulse Ox O2 Delivery O2 Flow Rate FiO2 03/13/20 07:52 Room Air 03/13/20 07:15 99.1 86 18 184/103 (130) 97 99.1 I&O Intake and Output 03/13/20 07:00 Intake Total 300 ml Balance 300 ml Intake Oral 300 ml General: Alert, Oriented X3, Cooperative Abdomen: Soft, No tenderness Labs Laboratory Tests Test 03/11/20 11:17 03/11/20 17:17 03/12/20 06:05 03/12/20 06:49 Glucose (Fingerstick) 81 mg/dL (70-99) 81 mg/dL (70-99) 41 mg/dL (70-99) 125 mg/dL (70-99) Test 03/12/20 08:18 03/12/20 12:57 03/12/20 18:12 03/12/20 20:39 Glucose (Fingerstick) 99 mg/dL (70-99) 95 mg/dL (70-99) 168 mg/dL (70-99) 135 mg/dL (70-99) Test 03/13/20 04:00 03/13/20 07:19 White Blood Count 6.3 x10^3/uL (4.0-11.0) Red Blood Count 3.21 x10^6/uL (3.50-5.40) Hemoglobin 9.7 g/dL (12.0-15.5) Hematocrit 29.0 % (36.0-47.0) Mean Corpuscular Volume 90 fL (79-100) Mean Corpuscular Hemoglobin 30 pg (25-35) Mean Corpuscular Hemoglobin Concent 33 g/dL (31-37) Red Cell Distribution Width 16.9 % (11.5-14.5) Platelet Count 244 x10^3/uL (140-400) Neutrophils (%) (Auto) 41 % (31-73) Lymphocytes (%) (Auto) 45 % (24-48) Monocytes (%) (Auto) 9 % (0-9) Eosinophils (%) (Auto) 5 % (0-3) Basophils (%) (Auto) 1 % (0-3) Neutrophils # (Auto) 2.6 x10^3/uL (1.8-7.7) Lymphocytes # (Auto) 2.8 x10^3/uL (1.0-4.8) Monocytes # (Auto) 0.5 x10^3/uL (0.0-1.1) Eosinophils # (Auto) 0.3 x10^3/uL (0.0-0.7) Basophils # (Auto) 0.0 x10^3/uL (0.0-0.2) Sodium Level 138 mmol/L (136-145) Potassium Level 3.7 mmol/L (3.5-5.1) Chloride Level 101 mmol/L (98-107) Carbon Dioxide Level 28 mmol/L (21-32) Anion Gap 9 (6-14) Blood Urea Nitrogen 22 mg/dL (7-20) Creatinine 4.7 mg/dL (0.6-1.0) Estimated GFR (Cockcroft-Gault) 13.0 BUN/Creatinine Ratio 5 (6-20) Glucose Level 147 mg/dL (70-99) Calcium Level 8.1 mg/dL (8.5-10.1) Total Bilirubin 0.1 mg/dL (0.2-1.0) Aspartate Amino Transf (AST/SGOT) 11 U/L (15-37) Alanine Aminotransferase (ALT/SGPT) 10 U/L (14-59) Alkaline Phosphatase 82 U/L (46-116) Total Protein 6.5 g/dL (6.4-8.2) Albumin 3.0 g/dL (3.4-5.0) Albumin/Globulin Ratio 0.9 (1.0-1.7) Glucose (Fingerstick) 139 mg/dL (70-99) Laboratory Tests Test 03/12/20 12:57 03/12/20 18:12 03/12/20 20:39 03/13/20 04:00 Glucose (Fingerstick) 95 mg/dL (70-99) 168 mg/dL (70-99) 135 mg/dL (70-99) White Blood Count 6.3 x10^3/uL (4.0-11.0) Red Blood Count 3.21 x10^6/uL (3.50-5.40) Hemoglobin 9.7 g/dL (12.0-15.5) Hematocrit 29.0 % (36.0-47.0) Mean Corpuscular Volume 90 fL (79-100) Mean Corpuscular Hemoglobin 30 pg (25-35) Mean Corpuscular Hemoglobin Concent 33 g/dL (31-37) Red Cell Distribution Width 16.9 % (11.5-14.5) Platelet Count 244 x10^3/uL (140-400) Neutrophils (%) (Auto) 41 % (31-73) Lymphocytes (%) (Auto) 45 % (24-48) Monocytes (%) (Auto) 9 % (0-9) Eosinophils (%) (Auto) 5 % (0-3) Basophils (%) (Auto) 1 % (0-3) Neutrophils # (Auto) 2.6 x10^3/uL (1.8-7.7) Lymphocytes # (Auto) 2.8 x10^3/uL (1.0-4.8) Monocytes # (Auto) 0.5 x10^3/uL (0.0-1.1) Eosinophils # (Auto) 0.3 x10^3/uL (0.0-0.7) Basophils # (Auto) 0.0 x10^3/uL (0.0-0.2) Sodium Level 138 mmol/L (136-145) Potassium Level 3.7 mmol/L (3.5-5.1) Chloride Level 101 mmol/L (98-107) Carbon Dioxide Level 28 mmol/L (21-32) Anion Gap 9 (6-14) Blood Urea Nitrogen 22 mg/dL (7-20) Creatinine 4.7 mg/dL (0.6-1.0) Estimated GFR (Cockcroft-Gault) 13.0 BUN/Creatinine Ratio 5 (6-20) Glucose Level 147 mg/dL (70-99) Calcium Level 8.1 mg/dL (8.5-10.1) Total Bilirubin 0.1 mg/dL (0.2-1.0) Aspartate Amino Transf (AST/SGOT) 11 U/L (15-37) Alanine Aminotransferase (ALT/SGPT) 10 U/L (14-59) Alkaline Phosphatase 82 U/L (46-116) Total Protein 6.5 g/dL (6.4-8.2) Albumin 3.0 g/dL (3.4-5.0) Albumin/Globulin Ratio 0.9 (1.0-1.7) Test 03/13/20 07:19 Glucose (Fingerstick) 139 mg/dL (70-99) Problem List Problems Medical Problems: (1) Abdominal pain Status: Acute (2) Chronic abdominal pain Status: Acute (3) ESRD (end stage renal disease) on dialysis Status: Acute (4) Hypertensive urgency Status: Acute (5) Small bowel obstruction Status: Acute Assessment/Plan advance diet at tolerated will sign off, please call with questions Justicifation of Admission Dx: Justifications for Admission: Justification of Admission Dx: Yes SOILA LUCAS MD 03/13/20 1248: SURGICAL PROGRESS NOTE Assessment/Plan Agree with above RAFITA CONLEY APRN Mar 13, 2020 09:54 SOILA LUCAS MD Mar 13, 2020 12:48
--- NOTE | 2020-03-13 10:10 | PDOC ---
Subjective: Subjective: Feels better - tolerating liquids, wants more to eat, stooling, less pain. Objective: Vital Signs: Vital Signs Date Time Temp Pulse Resp B/P (MAP) Pulse Ox O2 Delivery O2 Flow Rate FiO2 03/13/20 07:52 Room Air 03/13/20 07:15 99.1 86 18 184/103 (130) 97 99.1 Labs: Laboratory Tests Test 03/12/20 12:57 03/12/20 18:12 03/12/20 20:39 03/13/20 04:00 Glucose (Fingerstick) 95 mg/dL 168 mg/dL 135 mg/dL White Blood Count 6.3 x10^3/uL Red Blood Count 3.21 x10^6/uL Hemoglobin 9.7 g/dL Hematocrit 29.0 % Mean Corpuscular Volume 90 fL Mean Corpuscular Hemoglobin 30 pg Mean Corpuscular Hemoglobin Concent 33 g/dL Red Cell Distribution Width 16.9 % Platelet Count 244 x10^3/uL Neutrophils (%) (Auto) 41 % Lymphocytes (%) (Auto) 45 % Monocytes (%) (Auto) 9 % Eosinophils (%) (Auto) 5 % Basophils (%) (Auto) 1 % Neutrophils # (Auto) 2.6 x10^3/uL Lymphocytes # (Auto) 2.8 x10^3/uL Monocytes # (Auto) 0.5 x10^3/uL Eosinophils # (Auto) 0.3 x10^3/uL Basophils # (Auto) 0.0 x10^3/uL Sodium Level 138 mmol/L Potassium Level 3.7 mmol/L Chloride Level 101 mmol/L Carbon Dioxide Level 28 mmol/L Anion Gap 9 Blood Urea Nitrogen 22 mg/dL Creatinine 4.7 mg/dL Estimated GFR (Cockcroft-Gault) 13.0 BUN/Creatinine Ratio 5 Glucose Level 147 mg/dL Calcium Level 8.1 mg/dL Total Bilirubin 0.1 mg/dL Aspartate Amino Transf (AST/SGOT) 11 U/L Alanine Aminotransferase (ALT/SGPT) 10 U/L Alkaline Phosphatase 82 U/L Total Protein 6.5 g/dL Albumin 3.0 g/dL Albumin/Globulin Ratio 0.9 Test 03/13/20 07:19 Glucose (Fingerstick) 139 mg/dL Imaging: [facility] 03/12 IMPRESSION: Mild central small bowel dilatation which may indicate a mild small bowel obstruction. SBS 03/12 Impression: Moderate quantity of retained contrast within the stomach is present compatible with reported history of gastroparesis. No obstruction. No strictures. PE: GEN: NAD, sitting on edge of bed talking on phone LUNGS: CTAB HEART: RRR ABD: non-distended, soft, less tender NEURO/PSYCH: A & O 3 A/P: Recurrent n/v, abd pain - resolved - SBS as above w/o obstruction H/o gastroparesis and pancreatitis HTN, ESRD, non-compliance +marijuana -- ADAT (order already in for this but not done), DC per primary. 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 Follow-up w/ established GI at [facility] re: long-term management of gastroparesis and further testing re: pancreatitis s/p cholecystectomy. Justicifation of Admission Dx: Justifications for Admission: Justification of Admission Dx: Yes JANICE JACOBO Mar 13, 2020 10:10
[2020-03-13] MEDS ORDERED: POLYETHYLENE GLYCOL 3350 17 GM PACKET. PO PRN (10:15)
[2020-03-13] MEDS ORDERED: BISACODYL 5 MG TABLET.DR. PO PRN (10:15)
--- NOTE | 2020-03-13 10:52 | PDOC ---
SUBJECTIVE ROS stable, no vomiting, seen on HD, no complaints OBJECTIVE Vital Signs Vital Signs Date Time Temp Pulse Resp B/P (MAP) Pulse Ox O2 Delivery O2 Flow Rate FiO2 03/13/20 07:52 Room Air 03/13/20 07:15 99.1 86 18 184/103 (130) 97 99.1 I & 0 Intake and Output 03/13/20 07:00 Intake Total 300 ml Balance 300 ml Intake Oral 300 ml PHYSICAL EXAM Physical Exam GEN: NAD HEEN: OM moist NECK: supple CVS: S1S2 RESP: CTA, No Acc. Muscle Use : No CVA tenderness, No Suprapubic Tenderness, No choi NEUR--Grossly normal SKIN No rash EXT No LE edema, has TDC DIAGNOSIS/ASSESSMENT Assessment & Plan ESRD - On HD TTS Seen on HD, tolerating well, continue as ordered, George Ordoñez Hypertension - per Cardiology Abdominal pain---Recurrent n/v, abd pain - resolved - SBS as above w/o obstruction Hx of pancreatitis Gastroparesis- 2/2 DM DM- per primary Drug abuse - Marijuana Positive Anemia - Hgb stable, No indication for ZORAIDA COMMENT/RELEVANT DATA Meds Current Medications Medications (Trade) Dose Ordered Sig/Brown Start Time Stop Time Status Last Admin Dose Admin Acetaminophen (Tylenol Supp) 650 mg PRN Q4HRS PRN 03/10/20 10:30 Albuterol Sulfate (Ventolin Neb Soln) 2.5 mg PRN Q4HRS PRN 03/10/20 12:15 Albuterol/ Ipratropium (Duoneb) 3 ml Q4HRS 03/10/20 12:00 03/10/20 11:59 DC Amlodipine Besylate (Norvasc) 10 mg DAILY 03/12/20 19:00 03/12/20 18:26 10 MG Bisacodyl (Dulcolax Supp) 10 mg PRN DAILY PRN 03/11/20 17:45 Bisacodyl (Dulcolax Tab) 5 mg PRN DAILY PRN 03/13/20 10:15 Carvedilol (Coreg) 25 mg BIDWMEALS 03/12/20 19:00 03/12/20 18:27 25 MG Clonidine HCl (Catapres Tts-2) 1 patch 1X ONCE 03/10/20 09:00 03/10/20 09:01 DC 03/10/20 09:35 1 PATCH Clonidine HCl (Catapres) 0.1 mg 1X ONCE 03/10/20 08:30 03/10/20 08:50 DC 03/10/20 08:41 0.1 MG Dextrose (Dextrose 50%-Water Syringe) 12.5 gm PRN Q15MIN PRN 03/10/20 09:00 03/12/20 06:15 12.5 GM Diphenhydramine HCl (Benadryl) 12.5 mg PRN Q4HRS PRN 03/11/20 20:15 03/13/20 07:52 12.5 MG Famotidine (Pepcid Vial) 20 mg 1X ONCE 03/10/20 07:45 03/10/20 07:40 DC Famotidine (Pepcid) 20 mg 1X ONCE 03/10/20 08:00 03/10/20 08:01 DC 03/10/20 07:57 20 MG Fentanyl Citrate (Fentanyl 2ml Vial) 50 mcg PRN Q2HRS PRN 03/11/20 06:45 03/13/20 07:52 50 MCG Hydralazine HCl (Apresoline Inj) 20 mg PRN Q4HRS PRN 03/10/20 12:15 03/12/20 07:44 20 MG Hydralazine HCl (Apresoline) 50 mg TID 03/12/20 21:00 03/12/20 20:31 50 MG Hydromorphone HCl (Dilaudid) 1 mg 1X ONCE 03/10/20 09:00 03/10/20 09:01 DC 03/10/20 09:41 1 MG Hyoscyamine (Anaspaz) 0.125 mg 1X ONCE 03/10/20 08:00 03/10/20 08:01 DC 03/10/20 07:57 0.125 MG Info (CONTRAST GIVEN -- Rx MONITORING) 1 each PRN DAILY PRN 03/11/20 10:00 03/13/20 09:59 DC Info (PHARMACY MONITORING -- do not chart) 1 each PRN DAILY PRN 03/13/20 09:00 Insulin Human Lispro (HumaLOG) 0-5 UNITS TIDWMEALS 03/10/20 12:00 Iohexol (Omnipaque 300 Mg/ml) 400 ml 1X ONCE 7/15/20 08:30 03/12/20 08:31 DC 03/12/20 09:00 400 ML Isosorbide Mononitrate (Imdur) 30 mg DAILY 03/12/20 19:00 03/12/20 18:40 DC 03/12/20 18:26 30 MG Labetalol HCl (Normodyne Iv Push) 20 mg PRN Q2HR PRN 03/10/20 12:00 03/12/20 13:17 20 MG Lidocaine (Lidoderm) 1 patch DAILY 03/10/20 10:30 03/13/20 07:53 1 PATCH Lorazepam (Ativan Inj) 0.5 mg 1X ONCE 03/11/20 12:45 03/11/20 12:46 DC 03/11/20 13:23 0.5 MG Metoclopramide HCl (Reglan Vial) 10 mg 1X ONCE 03/10/20 08:00 03/10/20 08:01 DC 03/10/20 07:56 10 MG Miscellaneous (Lidoderm Patch Removal) 1 ea QHS 03/10/20 21:00 03/12/20 21:00 1 EA Nicardipine HCl 50 mg/Sodium Chloride 250 ml @ 25 mls/hr CONT PRN 03/10/20 16:00 03/11/20 02:11 25 MLS/HR Pantoprazole Sodium (PROTONIX VIAL for IV PUSH) 40 mg DAILYAC 03/10/20 13:00 03/13/20 10:11 DC 03/13/20 07:52 40 MG Pantoprazole Sodium (Protonix) 40 mg DAILYAC 03/14/20 07:30 Phenol (Chloraseptic) 1 spray PRN Q2HR PRN 03/11/20 17:45 03/12/20 03:39 1 SPRAY Polyethylene Glycol (miraLAX PACKET) 17 gm PRN DAILY PRN 03/13/20 10:15 Prochlorperazine Edisylate (Compazine) 10 mg PRN Q6HRS PRN 03/10/20 13:30 03/12/20 23:21 10 MG Promethazine HCl (Phenergan Supp) 25 mg PRN Q6HRS PRN 03/10/20 12:00 03/10/20 16:35 25 MG Scopolamine (Transderm-Scop) 1 patch Q3DAYS@0700 03/11/20 07:00 03/11/20 07:45 1 PATCH Sodium Chloride 1,000 ml @ 400 mls/hr Q2H30M PRN 03/13/20 08:51 03/13/20 20:50 Lab Laboratory Tests Test 03/12/20 12:57 03/12/20 18:12 03/12/20 20:39 03/13/20 04:00 Glucose (Fingerstick) 95 mg/dL (70-99) 168 mg/dL (70-99) 135 mg/dL (70-99) White Blood Count 6.3 x10^3/uL (4.0-11.0) Red Blood Count 3.21 x10^6/uL (3.50-5.40) Hemoglobin 9.7 g/dL (12.0-15.5) Hematocrit 29.0 % (36.0-47.0) Mean Corpuscular Volume 90 fL (79-100) Mean Corpuscular Hemoglobin 30 pg (25-35) Mean Corpuscular Hemoglobin Concent 33 g/dL (31-37) Red Cell Distribution Width 16.9 % (11.5-14.5) Platelet Count 244 x10^3/uL (140-400) Neutrophils (%) (Auto) 41 % (31-73) Lymphocytes (%) (Auto) 45 % (24-48) Monocytes (%) (Auto) 9 % (0-9) Eosinophils (%) (Auto) 5 % (0-3) Basophils (%) (Auto) 1 % (0-3) Neutrophils # (Auto) 2.6 x10^3/uL (1.8-7.7) Lymphocytes # (Auto) 2.8 x10^3/uL (1.0-4.8) Monocytes # (Auto) 0.5 x10^3/uL (0.0-1.1) Eosinophils # (Auto) 0.3 x10^3/uL (0.0-0.7) Basophils # (Auto) 0.0 x10^3/uL (0.0-0.2) Sodium Level 138 mmol/L (136-145) Potassium Level 3.7 mmol/L (3.5-5.1) Chloride Level 101 mmol/L (98-107) Carbon Dioxide Level 28 mmol/L (21-32) Anion Gap 9 (6-14) Blood Urea Nitrogen 22 mg/dL (7-20) Creatinine 4.7 mg/dL (0.6-1.0) Estimated GFR (Cockcroft-Gault) 13.0 BUN/Creatinine Ratio 5 (6-20) Glucose Level 147 mg/dL (70-99) Calcium Level 8.1 mg/dL (8.5-10.1) Total Bilirubin 0.1 mg/dL (0.2-1.0) Aspartate Amino Transf (AST/SGOT) 11 U/L (15-37) Alanine Aminotransferase (ALT/SGPT) 10 U/L (14-59) Alkaline Phosphatase 82 U/L (46-116) Total Protein 6.5 g/dL (6.4-8.2) Albumin 3.0 g/dL (3.4-5.0) Albumin/Globulin Ratio 0.9 (1.0-1.7) Test 03/13/20 07:19 Glucose (Fingerstick) 139 mg/dL (70-99) Results All relevant outside records, renal labs, imaging studies, telemetry/EKG's were reviewed. Justicifation of Admission Dx: Justifications for Admission: Justification of Admission Dx: Yes MELLISSA DE MD Mar 13, 2020 10:52
--- NOTE | 2020-03-13 12:38 | PDOC ---
THREAD DRESSER PROGRESS NOTE Subjective: Pt at dialysis. Objective: Vital Signs: Vital Signs Date Time Temp Pulse Resp B/P (MAP) Pulse Ox O2 Delivery O2 Flow Rate FiO2 03/12/20 07:44 79 187/102 03/12/20 08:00 Room Air 03/12/20 15:00 98.3 18 98 98.3 Vital Signs Date Time Temp Pulse Resp B/P (MAP) Pulse Ox O2 Delivery O2 Flow Rate FiO2 03/13/20 11:10 18 97 Room Air 03/13/20 07:15 99.1 86 184/103 (130) 99.1 Labs: Laboratory Tests Test 03/12/20 12:57 03/12/20 18:12 03/12/20 20:39 03/13/20 04:00 Glucose (Fingerstick) 95 mg/dL (70-99) 168 mg/dL (70-99) H 135 mg/dL (70-99) H White Blood Count 6.3 x10^3/uL (4.0-11.0) Red Blood Count 3.21 x10^6/uL (3.50-5.40) L Hemoglobin 9.7 g/dL (12.0-15.5) L Hematocrit 29.0 % (36.0-47.0) L Mean Corpuscular Volume 90 fL (79-100) Mean Corpuscular Hemoglobin 30 pg (25-35) Mean Corpuscular Hemoglobin Concent 33 g/dL (31-37) Red Cell Distribution Width 16.9 % (11.5-14.5) H Platelet Count 244 x10^3/uL (140-400) Neutrophils (%) (Auto) 41 % (31-73) Lymphocytes (%) (Auto) 45 % (24-48) Monocytes (%) (Auto) 9 % (0-9) Eosinophils (%) (Auto) 5 % (0-3) H Basophils (%) (Auto) 1 % (0-3) Neutrophils # (Auto) 2.6 x10^3/uL (1.8-7.7) Lymphocytes # (Auto) 2.8 x10^3/uL (1.0-4.8) Monocytes # (Auto) 0.5 x10^3/uL (0.0-1.1) Eosinophils # (Auto) 0.3 x10^3/uL (0.0-0.7) Basophils # (Auto) 0.0 x10^3/uL (0.0-0.2) Sodium Level 138 mmol/L (136-145) Potassium Level 3.7 mmol/L (3.5-5.1) Chloride Level 101 mmol/L (98-107) Carbon Dioxide Level 28 mmol/L (21-32) Anion Gap 9 (6-14) Blood Urea Nitrogen 22 mg/dL (7-20) H Creatinine 4.7 mg/dL (0.6-1.0) H Estimated GFR (Cockcroft-Gault) 13.0 BUN/Creatinine Ratio 5 (6-20) L Glucose Level 147 mg/dL (70-99) H Calcium Level 8.1 mg/dL (8.5-10.1) L Total Bilirubin 0.1 mg/dL (0.2-1.0) L Aspartate Amino Transferase (AST) 11 U/L (15-37) L Alanine Aminotransferase (ALT) 10 U/L (14-59) L Alkaline Phosphatase 82 U/L (46-116) Total Protein 6.5 g/dL (6.4-8.2) Albumin 3.0 g/dL (3.4-5.0) L Albumin/Globulin Ratio 0.9 (1.0-1.7) L Test 03/13/20 07:19 03/13/20 12:33 Glucose (Fingerstick) 139 mg/dL (70-99) H 78 mg/dL (70-99) Laboratory Tests 03/13/20 04:00 Laboratory Tests 03/13/20 04:00 Laboratory Tests 03/13/20 04:00 Physical Exam: GENERAL: No apparent distress. Alert and oriented. HEENT: Head normocephalic, atraumatic. NECK: Supple LUNGS: Clear to auscultation. HEART: RRR, S1, S2 present, pulses intact ABDOMEN: Soft, positive bowel sounds. EXTREMITIES: No cyanosis or edema. NEUROLOGIC: Normal speech, normal tone PSYCHIATRIC: Normal affect, normal mood. SKIN: No ulceration. Assessment & Plan: A/P 34y with abd pain thought to be 2/2 SBO 1.) N/V and abd pain possible cause ileus/SBO 2.) SBO based on imagining, GI and Gen Surg consulted 3.) HTN h/o poor control, in crisis, Cardiology consulted 4.) ESRD stage IV, on dialysis, nephrology consulted 5.) DM type I labial, managed by primary team 6.) H/o pancreatitis 7.) Will continue to follow LYLY RAYMOND MD Mar 13, 2020 12:38
[2020-03-13] MEDS ORDERED: HYDROCORTISONE 1% TOPICAL OINTMENT 30GM TUBE. TP PRN (14:00)
[2020-03-13 15:02] VITALS: BP 154/90
--- NOTE | 2020-03-13 15:43 | PDOC ---
CHERYL SAWYER [employer] 03/13/20 1543: CARDIO Progress Notes Date and Time Date of Service 03/13/20 Time of Evaluation 1140 Subjective Subjective: No Chest Pain, Other (abd tenderness better) Vitals Vitals Vital Signs Date Time Temp Pulse Resp B/P (MAP) Pulse Ox O2 Delivery O2 Flow Rate FiO2 03/13/20 15:02 97.7 77 20 154/90 (111) 96 Room Air 97.7 Weight Weight [ ] Input and Output Intake and Output Intake and Output 03/13/20 07:00 Intake Total 300 ml Balance 300 ml Intake Oral 300 ml Laboratory Labs Laboratory Tests Test 03/12/20 18:12 03/12/20 20:39 03/13/20 04:00 03/13/20 07:19 Glucose (Fingerstick) 168 mg/dL (70-99) 135 mg/dL (70-99) 139 mg/dL (70-99) White Blood Count 6.3 x10^3/uL (4.0-11.0) Red Blood Count 3.21 x10^6/uL (3.50-5.40) Hemoglobin 9.7 g/dL (12.0-15.5) Hematocrit 29.0 % (36.0-47.0) Mean Corpuscular Volume 90 fL (79-100) Mean Corpuscular Hemoglobin 30 pg (25-35) Mean Corpuscular Hemoglobin Concent 33 g/dL (31-37) Red Cell Distribution Width 16.9 % (11.5-14.5) Platelet Count 244 x10^3/uL (140-400) Neutrophils (%) (Auto) 41 % (31-73) Lymphocytes (%) (Auto) 45 % (24-48) Monocytes (%) (Auto) 9 % (0-9) Eosinophils (%) (Auto) 5 % (0-3) Basophils (%) (Auto) 1 % (0-3) Neutrophils # (Auto) 2.6 x10^3/uL (1.8-7.7) Lymphocytes # (Auto) 2.8 x10^3/uL (1.0-4.8) Monocytes # (Auto) 0.5 x10^3/uL (0.0-1.1) Eosinophils # (Auto) 0.3 x10^3/uL (0.0-0.7) Basophils # (Auto) 0.0 x10^3/uL (0.0-0.2) Sodium Level 138 mmol/L (136-145) Potassium Level 3.7 mmol/L (3.5-5.1) Chloride Level 101 mmol/L (98-107) Carbon Dioxide Level 28 mmol/L (21-32) Anion Gap 9 (6-14) Blood Urea Nitrogen 22 mg/dL (7-20) Creatinine 4.7 mg/dL (0.6-1.0) Estimated GFR (Cockcroft-Gault) 13.0 BUN/Creatinine Ratio 5 (6-20) Glucose Level 147 mg/dL (70-99) Calcium Level 8.1 mg/dL (8.5-10.1) Total Bilirubin 0.1 mg/dL (0.2-1.0) Aspartate Amino Transf (AST/SGOT) 11 U/L (15-37) Alanine Aminotransferase (ALT/SGPT) 10 U/L (14-59) Alkaline Phosphatase 82 U/L (46-116) Total Protein 6.5 g/dL (6.4-8.2) Albumin 3.0 g/dL (3.4-5.0) Albumin/Globulin Ratio 0.9 (1.0-1.7) Test 03/13/20 12:33 Glucose (Fingerstick) 78 mg/dL (70-99) Physical Exam HEENT: Neck Supple W Full Motion Chest: Symmetric LUNGS: Clear to Auscultation Heart: RRR Abdomen: Other (tenderness) Neurology: alert, oriented, follow commands Assessment Assessment 1. Abdominal pain, nausea/vomiting, gastroparesis. Diet advancement as tolerate d 2. Hypertensive urgency; remains slightly elevated 4. ESRD on HD. 5. Diabetes, II 6. Hyperlipidemia 7. Depression, anxiety Recommendations Taking oral Resume home antiHTN therapy. Titrate as warranted PRN IV Labetalol, hydralazine Fluid offloading via HD Supportive care from a CV standpoint Justicifation of Admission Dx: Justifications for Admission: Justification of Admission Dx: Yes ALESIA GOLDEN MD 03/13/202056: CARDIO Progress Notes Plan Plan The patient was seen and interviewed as well as examined at the bedside. The chart was reviewed. The case was discussed. Agree with the plan of care. CHERYL SAWYER APRN Mar 13, 2020 15:43 ALESIA GOLDEN MD Mar 13, 2020 20:57
[2020-03-13] MEDS ORDERED: HYDROmorphone 2 MG/ML VIAL IV ONE (17:30)
[2020-03-13 18:54] VITALS: BP 139/92
[2020-03-13] MEDS: PROCHLORPERAZINE 10 MG/2 ML VIAL. IV PRN (20:30)
[2020-03-13] MEDS: PATCH REMOVAL. MC SCH (21:00)
[2020-03-13] MEDS ORDERED: PATCH REMOVAL. MC SCH (21:00)
[2020-03-13 23:26] VITALS: BP 126/76
--- NOTE | 2020-03-13 23:42 | NUR ---
Page placed to Dr. Arndt at [phone] regarding Patient c/o Lidoderm patch not helping pain. Call returned from Dr. Anrdt order received.
[2020-03-14] MEDS ORDERED: HYDROmorphone 2 MG TABLET PO PRN
[2020-03-14 02:28] VITALS: BP 143/95
[2020-03-14] MEDS: diphenhydrAMINE 50 MG/ML VIAL IVP PRN ×2 (02:42→08:56)
--- NOTE | 2020-03-14 06:26 | PDOC ---
PROGRESS NOTES Chief Complaint Chief Complaint VTE Prophylaxis Ordered VTE Prophylaxis Devices: Contraindicated VTE Pharmacological Prophylaxi: Yes Assessment/Plan Assessment/Plan Impression: Distended small bowel loops with transition suggested within the right lower quadrant. C/W ILEUS VS small bowel obstruction. Pelvic free fluid is present and of slightly higher density. While this may be physiologic, more significant processes NOT excluded. hypertensive urgency ESRD ON DIALYSIS HX HYPERTENSION with 2017 HX THC ABUSE tobacco abuse disorder Gastroparesis 03/11 REFUSED NG LAST PM 03/12 passing few loose stools 03/13 STILL IN MILD PAIN plan d/c tomorrow 03/14 await GI CLEARANCE NOTE PLAN ADMIT CONSULT NEPHROLOGY IV HYDRALAZINE 10MG Q 4 HRS PRN BP SUPPORT GI CONSULT NPO IV PROTONIX CARDIOLOGY CONSULT ECHO SQ HEPARIN DVT PROPHYLAXIS NG TUBE refused again 03/12 03/14, C/O PERSISTENT ABDOMINAL PAIN THRU LAST NIGHT Justicifation of Admission Dx: Justifications for Admission: Justification of Admission Dx: Yes History of Present Illness History of Present Illness Identification/Chief Complaint Chief Complaint SEEN IN ER WITH SBO 34 year old female presents with 9-day history of worsening abdominal pain. admitted [facility] until 02/29/2020 with report of pancr eatitis. hx ESRD on HD, DM, and gastroparesis. last dialysis on 03/01/2020. then, patient reports pain started. // has been unable to go to dialysis secondary to this pain. Reports she did not want to come back to the hospital and therefore tried to control the pain at home. reports associated nausea and vomiting. denies intake of poorly cooked food no alcohol use. Denies fever or chills or cough . Denies known exposure to COVID-19. Past Medical History Past Medical History Past Medical History Past Medical History: Diabetes-Type I, Hypertension, Kidney Infection, Pancreatitis, Renal Failure, Other Additional Past Medical Histor: GASTROPERESIS, DIALYSIS Past Surgical History: Cholecystectomy, Tubal ligation, Other Additional Past Surgical Histo: FISTULA LEFT ARM, SHUNT RIGHT CHEST Smoking Status: Current Every Day Smoker Alcohol Use: Occasionally Drug Use: None Vitals Vitals Vital Signs Date Time Temp Pulse Resp B/P (MAP) Pulse Ox O2 Delivery O2 Flow Rate FiO2 03/14/20 02:28 98.2 95 20 143/95 (111) 100 Room Air 98.2 Physical Exam General: Alert, Oriented X3, Cooperative, mild distress Heart: Regular rate, Normal S1, Normal S2 Lungs: Clear Abdomen: Normal bowel sounds, Soft, Other (ND, mild ttp lower abdomen ) Extremities: No cyanosis, Other (trace upper and lower extremity edema bilaterally ) Skin: No breakdown, No significant lesion Labs LABS Examination: SMALL BOWEL SERIES History: Reason: SBO , 0.5 MIN FLUORO, 15 IMAGES / Spl. Instructions: gastrografin contrast OMNIPAQUE 300MG -300mL USED / History: Comparison/Correlation: 02/07/2013 small bowel series exam Findings: Small bowel series exam was performed utilizing Omnipaque 300. Fluoroscopy was performed for 0.5 minutes. Total 5 fluoroscopic images acquired. Right upper outer quadrant surgical clips are present. Contrast mildly distends the stomach. Contrast reaches the colon at 3 hours 15 minutes. Patient reports significant tenderness and results in significant compression was not applied during fluoroscopic imaging. Terminal ileum is visualized with no stricture. No stricture otherwise along small bowel is present. No obstruction. No suspicious filling defects. Note is made of retention of oral contrast within the stomach. The patient did not consume contrast beyond the initial amount at the beginning of the exam. Impression: Moderate quantity of retained contrast within the stomach is present compatible with reported history of gastroparesis. No obstruction. No strictures. Electronically signed by: Alex Mckeon MD (03/12/2020 1:42 PM) [id number] DICTATED and SIGNED BY: ALEX MCKEON MD DATE: 03/12/20 1342 Laboratory Tests Test 03/13/20 07:19 03/13/20 12:33 03/13/20 16:39 Glucose (Fingerstick) 139 mg/dL (70-99) 78 mg/dL (70-99) 146 mg/dL (70-99) Assessment and Plan Assessmemt and Plan Problems Medical Problems: (1) Abdominal pain Status: Acute (2) Chronic abdominal pain Status: Acute (3) ESRD (end stage renal disease) on dialysis Status: Acute (4) Hypertensive urgency Status: Acute (5) Small bowel obstruction Status: Acute Comment Review of Relevant I have reviewed the following items mine (where applicable) has been applied. Labs Laboratory Tests Test 03/12/20 06:49 03/12/20 08:18 03/12/20 12:57 03/12/20 18:12 Glucose (Fingerstick) 125 mg/dL (70-99) 99 mg/dL (70-99) 95 mg/dL (70-99) 168 mg/dL (70-99) Test 03/12/20 20:39 03/13/20 04:00 03/13/20 07:19 03/13/20 12:33 Glucose (Fingerstick) 135 mg/dL (70-99) 139 mg/dL (70-99) 78 mg/dL (70-99) White Blood Count 6.3 x10^3/uL (4.0-11.0) Red Blood Count 3.21 x10^6/uL (3.50-5.40) Hemoglobin 9.7 g/dL (12.0-15.5) Hematocrit 29.0 % (36.0-47.0) Mean Corpuscular Volume 90 fL (79-100) Mean Corpuscular Hemoglobin 30 pg (25-35) Mean Corpuscular Hemoglobin Concent 33 g/dL (31-37) Red Cell Distribution Width 16.9 % (11.5-14.5) Platelet Count 244 x10^3/uL (140-400) Neutrophils (%) (Auto) 41 % (31-73) Lymphocytes (%) (Auto) 45 % (24-48) Monocytes (%) (Auto) 9 % (0-9) Eosinophils (%) (Auto) 5 % (0-3) Basophils (%) (Auto) 1 % (0-3) Neutrophils # (Auto) 2.6 x10^3/uL (1.8-7.7) Lymphocytes # (Auto) 2.8 x10^3/uL (1.0-4.8) Monocytes # (Auto) 0.5 x10^3/uL (0.0-1.1) Eosinophils # (Auto) 0.3 x10^3/uL (0.0-0.7) Basophils # (Auto) 0.0 x10^3/uL (0.0-0.2) Sodium Level 138 mmol/L (136-145) Potassium Level 3.7 mmol/L (3.5-5.1) Chloride Level 101 mmol/L (98-107) Carbon Dioxide Level 28 mmol/L (21-32) Anion Gap 9 (6-14) Blood Urea Nitrogen 22 mg/dL (7-20) Creatinine 4.7 mg/dL (0.6-1.0) Estimated GFR (Cockcroft-Gault) 13.0 BUN/Creatinine Ratio 5 (6-20) Glucose Level 147 mg/dL (70-99) Calcium Level 8.1 mg/dL (8.5-10.1) Total Bilirubin 0.1 mg/dL (0.2-1.0) Aspartate Amino Transf (AST/SGOT) 11 U/L (15-37) Alanine Aminotransferase (ALT/SGPT) 10 U/L (14-59) Alkaline Phosphatase 82 U/L (46-116) Total Protein 6.5 g/dL (6.4-8.2) Albumin 3.0 g/dL (3.4-5.0) Albumin/Globulin Ratio 0.9 (1.0-1.7) Test 03/13/20 16:39 Glucose (Fingerstick) 146 mg/dL (70-99) Laboratory Tests Test 03/13/20 07:19 03/13/20 12:33 03/13/20 16:39 Glucose (Fingerstick) 139 mg/dL (70-99) 78 mg/dL (70-99) 146 mg/dL (70-99) Medications Current Medications Fentanyl Citrate (Fentanyl 2ml Vial) 50 mcg 1X ONCE IVP ; Start 03/10/20 at 07:45; Stop 03/10/20 at 07:40; Status DC Famotidine (Pepcid Vial) 20 mg 1X ONCE IVP ; Start 03/10/20 at 07:45; Stop 03/10/20 at 07:40; Status DC Metoclopramide HCl (Reglan Vial) 10 mg 1X ONCE IVP ; Start 03/10/20 at 07:45; Stop 03/10/20 at 07:40; Status DC Hyoscyamine (Anaspaz) 0.125 mg 1X ONCE PO Last administered on 03/10/20at 07:57; Start 03/10/20 at 08:00; Stop 03/10/20 at 08:01; Status DC Fentanyl Citrate (Fentanyl 2ml Vial) 75 mcg 1X ONCE IM Last administered on 03/10/20at 07:57; Start 03/10/20 at 08:00; Stop 03/10/20 at 08:01; Status DC Metoclopramide HCl (Reglan Vial) 10 mg 1X ONCE IM Last administered on 02/26 07:56; Start 03/10/20 at 08:00; Stop 03/10/20 at 08:01; Status DC Famotidine (Pepcid) 20 mg 1X ONCE PO Last administered on 03/10/20at 07:57; Start 03/10/20 at 08:00; Stop 03/10/20 at 08:01; Status DC Clonidine HCl (Catapres) 0.1 mg 1X ONCE PO Last administered on 03/10/20at 08:41; Start 03/10/20 at 08:30; Stop 03/10/20 at 08:50; Status DC Hydromorphone HCl (Dilaudid) 1 mg 1X ONCE IM Last administered on 03/10/20at 09:41; Start 03/10/20 at 09:00; Stop 03/10/20 at 09:01; Status DC Prochlorperazine Edisylate (Compazine) 10 mg 1X ONCE IM Last administered on 03/10/20at 09:39; Start 03/10/20 at 09:00; Stop 03/10/20 at 09:01; Status DC Clonidine HCl (Catapres Tts-2) 1 patch 1X ONCE TD Last administered on 03/10/20at 09:35; Start 03/10/20 at 09:00; Stop 03/10/20 at 09:01; Status DC Insulin Human Lispro (HumaLOG) 0-5 UNITS TIDWMEALS SQ ; Start 03/10/20 at 12:00 Dextrose (Dextrose 50%-Water Syringe) 12.5 gm PRN Q15MIN PRN IV SEE COMMENTS Last administered on 03/12/20at 06:15; Start 03/10/20 at 09:00 Lidocaine (Lidoderm) 1 patch DAILY TD Last administered on 03/13/20at 07:53; Start 03/10/20 at 10:30 Miscellaneous (Lidoderm Patch Removal) 1 ea QHS MC Last administered on 03/13/20at 21:00; Start 03/10/20 at 21:00 Acetaminophen (Tylenol Supp) 650 mg PRN Q4HRS PRN HI TEMP OVER 100.4F OR MILD PAIN; Start 03/10/20 at 10:30 Albuterol/ Ipratropium (Duoneb) 3 ml Q4HRS NEB ; Start 03/10/20 at 12:00; Stop 03/10/20 at 11:59; Status DC Hydralazine HCl (Apresoline Inj) 10 mg PRN Q4HRS PRN IVP ELEVATED BP, SEE COM MENTS; Start 03/10/20 at 10:30; Stop 03/10/20 at 12:03; Status DC Labetalol HCl (Normodyne Iv Push) 20 mg PRN Q2HR PRN IVP HYPERTENSION, 1st CHOICE Last administered on 03/12/20at 13:17; Start 03/10/20 at 12:00 Fentanyl Citrate (Fentanyl 2ml Vial) 50 mcg PRN Q3HRS PRN IVP PAIN Last administered on 03/11/20at 00:36; Start 03/10/20 at 12:00; Stop 03/11/20 at 08:51; Status DC Promethazine HCl (Phenergan Supp) 25 mg PRN Q6HRS PRN HI NAUSEA/VOMITING Last administered on 03/10/20at 16:35; Start 03/10/20 at 12:00 Albuterol Sulfate (Ventolin Neb Soln) 2.5 mg PRN Q4HRS PRN NEB SHORTNESS OF BREATH; Start 03/10/20 at 12:15 Hydralazine HCl (Apresoline Inj) 20 mg PRN Q4HRS PRN IVP ELEVATED BP, 2nd CHOICE Last administered on 03/12/20at 07:44; Start 03/10/20 at 12:15 Pantoprazole Sodium (PROTONIX VIAL for IV PUSH) 40 mg DAILYAC IVP Last administered on 03/13/20at 07:52; Start 03/10/20 at 13:00; Stop 03/13/20 at 10:11; Status DC Fentanyl Citrate (Fentanyl 2ml Vial) 75 mcg 1X ONCE IM Last administered on 03/10/20at 13:29; Start 03/10/20 at 12:30; Stop 03/10/20 at 12:31; Status DC Prochlorperazine Edisylate (Compazine) 10 mg PRN Q6HRS PRN IV NAUSEA/VOMITING Last administered on 03/13/20at 20:30; Start 03/10/20 at 13:30 Nicardipine HCl 50 mg/Sodium Chloride 250 ml @ 25 mls/hr CONT PRN IV SEE I/O RECORD Last administered on 03/11/20at 02:11; Start 03/10/20 at 16:00 Fentanyl Citrate (Fentanyl 2ml Vial) 25 mcg 1X ONCE IVP Last administered on 03/10/20at 20:33; Start 03/10/20 at 20:15; Stop 03/10/20 at 20:16; Status DC Fentanyl Citrate (Fentanyl 2ml Vial) 50 mcg PRN Q2HRS PRN IV PAIN Last administered on 03/13/20at 11:10; Start 03/11/20 at 06:45; Stop 03/13/20 at 11:24; Status DC Scopolamine (Transderm-Scop) 1 patch Q3DAYS@0700 TD Last administered on 03/11/20at 07:45; Start 03/11/20 at 07:00 Iohexol (Omnipaque 300 Mg/ml) 400 ml 1X ONCE PO ; Start 03/11/20 at 09:45; Stop 03/11/20 at 09:49; Status DC Info (CONTRAST GIVEN -- Rx MONITORING) 1 each PRN DAILY PRN MC SEE COMMENTS; Start 03/11/20 at 10:00; Stop 03/13/20 at 09:59; Status DC Lorazepam (Ativan Inj) 0.5 mg 1X ONCE IVP Last administered on 03/11/20at 13:23; Start 03/11/20 at 12:45; Stop 03/11/20 at 12:46; Status DC Phenol (Chloraseptic) 1 spray PRN Q2HR PRN PO SORE THROAT Last administered on 03/12/20at 03:39; Start 03/11/20 at 17:45 Diphenhydramine HCl (Benadryl) 12.5 mg 1X ONCE IVP Last administered on 03/11/20at 18:11; Start 03/11/20 at 17:45; Stop 03/11/20 at 17:46; Status DC Bisacodyl (Dulcolax Supp) 10 mg PRN DAILY PRN HI CONSTIPATION; Start 03/11/20 at 17:45 Diphenhydramine HCl (Benadryl) 12.5 mg PRN Q4HRS PRN IVP itching Last administered on 03/14/20at 02:42; Start 03/11/20 at 20:15 Iohexol (Omnipaque 300 Mg/ml) 400 ml 1X ONCE PO Last administered on 03/12/20at 09:00; Start 03/12/20 at 08:30; Stop 03/12/20 at 08:31; Status DC Amlodipine Besylate (Norvasc) 10 mg DAILY PO Last administered on 03/12/20at 18:26; Start 03/12/20 at 19:00 Hydralazine HCl (Apresoline) 50 mg TID PO Last administered on 03/13/20at 20:27; Start 03/12/20 at 21:00 Isosorbide Mononitrate (Imdur) 30 mg DAILY PO Last administered on 03/12/20at 18:26; Start 03/12/20 at 19:00; Stop 03/12/20 at 18:40; Status DC Carvedilol (Coreg) 25 mg BIDWMEALS PO Last administered on 03/13/20at 17:18; Start 03/12/20 at 19:00 Sodium Chloride 1,000 ml @ 1,000 mls/hr Q1H PRN IV hypotension; Start 03/13/20 at 08:51; Stop 03/13/20 at 14:50; Status DC Sodium Chloride 1,000 ml @ 400 mls/hr Q2H30M PRN IV PATENCY; Start 03/13/20 at 08:51; Stop 03/13/20 at 20:50; Status DC Info (PHARMACY MONITORING -- do not chart) 1 each PRN DAILY PRN MC SEE COMMENTS; Start 03/13/20 at 09:00 Pantoprazole Sodium (Protonix) 40 mg DAILYAC PO ; Start 03/14/20 at 07:30 Polyethylene Glycol (miraLAX PACKET) 17 gm PRN DAILY PRN PO CONSTIPATION; Start 03/13/20 at 10:15 Bisacodyl (Dulcolax Tab) 5 mg PRN DAILY PRN PO CONSTIPATION; Start 03/13/20 at 10:15 Lidocaine (Lidoderm) 1 patch DAILY TD Last administered on 03/13/20at 14:21; Start 03/13/20 at 14:00 Miscellaneous (Lidoderm Patch Removal) 1 ea QHS MC Last administered on 03/13/20at 21:00; Start 03/13/20 at 21:00 Hydrocortisone (Cortaid) 1 gregorio PRN Q2HRS PRN TP ITCHING Last administered on 03/13/20at 14:20; Start 03/13/20 at 14:00 Hydromorphone HCl (Dilaudid) 0.5 mg 1X ONCE IV Last administered on 03/13/20at 17:19; Start 03/13/20 at 17:30; Stop 03/13/20 at 17:31; Status DC Hydromorphone HCl (Dilaudid) 1 mg 1X PRN PRN PO SEVERE PAIN 7-10 Last administered on 03/13/20at 23:55; Start 03/14/20 at 00:00 Active Scripts Active Orphenadrine Citrate 100 Mg Tablet.er 1 Tab PO BID PRN 10 Days Reglan (Metoclopramide Hcl) 10 Mg Tablet 1 Tab PO QID PRN 5 Days before food and bedtime Promethazine Hcl 12.5 Mg Tablet 12.5 Mg PO Q6H PRN Levsin-Sl (Hyoscyamine Sulfate) 0.125 Mg Tab.subl 0.125 Mg SL PRN Q4-6HRS PRN Isosorbide Mononitrate Er (Isosorbide Mononitrate) 30 Mg Tab.er.24h 1 Tab PO DAILY 30 Days Lidocaine PATCH (Lidocaine) 1 Each Adh..patch 1 Patch TD DAILY 30 Days Cyclobenzaprine Hcl 10 Mg Tablet 10 Mg PO PRN Q6HRS PRN 10 Days Reported Amlodipine Besylate 10 Mg Tablet 10 Mg PO DAILY Hydralazine Hcl 50 Mg Tablet 1 Tab PO TID Carvedilol 25 Mg Tablet 25 Mg PO BIDWMEALS Promethazine Hcl 25 Mg Tablet 1 Tab PO PRN Q6HRS Miralax (Polyethylene Glycol 3350) 17 Gm Powd.pack 1 Packet PO BID Lantus (Insulin Glargine,Hum.rec.anlog) 100 Unit/1 Ml Vial 25 Unit SQ QHS Novolog (Insulin Aspart) 100 Unit/1 Ml Cartridge 4 Unit SQ TID Lexapro (Escitalopram Oxalate) 20 Mg Tablet 1 Tab PO DAILY Pantoprazole Sodium (Pantoprazole Sodium) 40 Mg Tablet.dr 1 Tab PO DAILY Dicyclomine Hcl 10 Mg Capsule 1 Cap PO TID Vitals/I & O Vital Sign - Last 24 Hours 03/13/20 03/13/20 03/13/20 03/13/20 07:15 07:52 08:00 11:10 Temp 99.1 99.1 Pulse 86 Resp 18 18 B/P (MAP) 184/103 (130) Pulse Ox 97 97 O2 Delivery Room Air Room Air Room Air Room Air 03/13/20 03/13/20 03/13/20 03/13/20 13:35 15:02 17:18 17:19 Temp 97.7 97.7 Pulse 88 77 90 Resp 20 B/P (MAP) 160/101 154/90 (111) 154/90 Pulse Ox 96 O2 Delivery Room Air Room Air 03/13/20 03/13/20 03/13/20 03/13/20 18:54 20:27 20:27 21:31 Temp 98.9 98.9 Pulse 85 84 Resp 18 B/P (MAP) 139/92 (108) 155/100 Pulse Ox 99 99 O2 Delivery Room Air Room Air Room Air 03/13/20 03/13/20 03/14/20 03/14/20 23:26 23:55 00:55 02:28 Temp 98.5 98.2 98.5 98.2 Pulse 69 95 Resp 15 18 20 B/P (MAP) 126/76 (93) 143/95 (111) Pulse Ox 96 96 100 O2 Delivery Room Air Room Air Room Air Room Air Intake and Output 03/13/20 03/13/20 03/14/20 15:00 23:00 07:00 Intake Total 240 ml 700 ml 680 ml Balance 240 ml 700 ml 680 ml Justicifation of Admission Dx: Justifications for Admission: Justification of Admission Dx: Yes GINA PIÑA MD Mar 14, 2020 06:26
[2020-03-14] MEDS: SCOPOLAMINE 1.5MG PATCH. TD SCH (06:35)
[2020-03-14 07:00] VITALS: BP 153/98
[2020-03-14] MEDS ORDERED: PANTOPRAZOLE 40 MG TABLET.DR. PO SCH (07:30)
[2020-03-14] MEDS: INSULIN LISPRO 300 UNITS/3 ML VIAL. SQ SCH (08:00)
[2020-03-14] MEDS: LIDOCAINE (700MG/PATCH) PATCH. TD SCH ×3 (08:54→09:00)
[2020-03-14] MEDS: CARVEDILOL 12.5 MG TABLET. PO SCH (08:55)
[2020-03-14] MEDS: amLODIPine BESYLATE 10 MG TABLET PO SCH (08:55)
--- NOTE | 2020-03-14 10:34 | PDOC ---
Subjective: Subjective: Feels the same as yesterday - no n/v, no abd pain, stooling. Wants to go home. Objective: Objective: Called by nurse to confirm okay to DC - gave okay. Called back by nurse shortly - hospitalist has requested I see her and leave a note and review w/ Dr. Solano before discharge. Vital Signs: Vital Signs Date Time Temp Pulse Resp B/P (MAP) Pulse Ox O2 Delivery O2 Flow Rate FiO2 03/14/20 08:55 90 03/14/20 07:00 98.1 14 153/98 (116) 96 Room Air 98.1 Labs: Laboratory Tests Test 03/13/20 12:33 03/13/20 16:39 Glucose (Fingerstick) 78 mg/dL 146 mg/dL PE: GEN: NAD, talking on the phone LUNGS: CTAB HEART: RRR ABD: S/ND/NT NEURO/PSYCH: A & O 3 A/P: Recurrent n/v, abd pain - resolved H/o gastroparesis and pancreatitis HTN, ESRD, non-compliance +marijuana -- As yesterday, DC per primary, follow-up w/ established GI at . Encouraged compliance, encouraged abstinence from marijuana. Justicifation of Admission Dx: Justifications for Admission: Justification of Admission Dx: Yes JANICE JACOBO Mar 14, 2020 10:34
--- NOTE | 2020-03-14 10:35 | PDOC ---
[employer] PROGRESS NOTE Subjective: Pt with resolution of N/V. Abd pain has improved significantly Objective: Vital Signs: Vital Signs Date Time Temp Pulse Resp B/P (MAP) Pulse Ox O2 Delivery O2 Flow Rate FiO2 03/13/20 07:15 99.1 86 18 184/103 (130) 97 Room Air 99.1 Vital Signs Date Time Temp Pulse Resp B/P (MAP) Pulse Ox O2 Delivery O2 Flow Rate FiO2 03/14/20 08:55 90 03/14/20 07:00 98.1 14 153/98 (116) 96 Room Air 98.1 Labs: Laboratory Tests Test 03/13/20 12:33 03/13/20 16:39 Glucose (Fingerstick) 78 mg/dL (70-99) 146 mg/dL (70-99) H Physical Exam: GENERAL: No apparent distress. Alert and oriented. HEENT: Head normocephalic, atraumatic. NECK: Supple LUNGS: Clear to auscultation. HEART: RRR, S1, S2 present, pulses intact ABDOMEN: Soft, positive bowel sounds. EXTREMITIES: No cyanosis or edema. NEUROLOGIC: Normal speech, normal tone PSYCHIATRIC: Normal affect, normal mood. SKIN: No ulceration. Assessment & Plan: A/P 34y with abd pain thought to be 2/2 SBO 1.) N/V and abd pain resolved, SBO on imaging, GI and Gen Surg consulted 2.) HTN h/o poor control, back on home meds, Cardiology consulted 3.) ESRD stage IV, on dialysis, nephrology consulted 4.) DM type I labial, managed by primary team 5.) H/o pancreatitis LYLY RAYMOND MD Mar 14, 2020 10:35
--- NOTE | 2020-03-14 10:53 | PDOC3 ---
Discharge Summary Date of Admission: Mar 10, 2020 Date of Discharge: Mar 14, 2020 Follow-Up: 3-5 days Admitting Diagnosis comment: discharge dx Assessment/Plan Impression: Distended small bowel loops with transition suggested within the right lower quadrant. C/W ILEUS VS small bowel obstruction. Pelvic free fluid is present and of slightly higher density. While this may be physiologic, more significant processes NOT excluded. hypertensive urgency ESRD ON DIALYSIS HX HYPERTENSION with 2017 HX THC ABUSE tobacco abuse disorder Gastroparesis , followed by [facility] GI SOON 03/11 REFUSED NG LAST PM 03/12 passing few loose stools 03/13 STILL IN MILD PAIN plan d/c tomorrow 03/14 GI CLEARANCE NOTED FOR TODAY 28 MIN D/C PLANNING TIME PLAN ADMIT CONSULT NEPHROLOGY IV HYDRALAZINE 10MG Q 4 HRS PRN BP SUPPORT GI CONSULT NPO IV PROTONIX CARDIOLOGY CONSULT ECHO SQ HEPARIN DVT PROPHYLAXIS NG TUBE refused again 03/12 03/14, C/O PERSISTENT ABDOMINAL PAIN THRU LAST NIGHT Justicifation of Admission Dx: Justifications for Admission: Justification of Admission Dx: Yes History of Present Illness History of Present Illness Identification/Chief Complaint Chief Complaint SEEN IN ER WITH SBO 34 year old female presents with 9-day history of worsening abdominal pain. admitted [facility] until 02/29/2020 with report of pancreatitis. hx ESRD on HD, DM, and gastroparesis. last dialysis on 03/01/2020. then, patient reports pain started. // has been unable to go to dialysis secondary to this pain. Reports she did not want to come back to the hospital and therefore tried to control the pain at home. reports associated nausea and vomiting. denies intake of poorly cooked food no alcohol use. Denies fever or chills or cough . Denies known exposure to COVID-19. Past Medical History Past Medical History Past Medical History Past Medical History: Diabetes-Type I, Hypertension, Kidney Infection, Pancreatitis, Renal Failure, Other Additional Past Medical Histor: GASTROPERESIS, DIALYSIS Past Surgical History: Cholecystectomy, Tubal ligation, Other Additional Past Surgical Histo: FISTULA LEFT ARM, SHUNT RIGHT CHEST Smoking Status: Current Every Day Smoker Alcohol Use: Occasionally Drug Use: None Vitals Vitals Vital Signs Date Time Temp Pulse Resp B/P (MAP) Pulse Ox O2 Delivery O2 Flow Rate FiO2 7/17/20 02:28 98.2 95 20 143/95 (111) 100 Room Air 98.2 Physical Exam General: Alert, Oriented X3, Cooperative, mild distress Heart: Regular rate, Normal S1, Normal S2 Lungs: Clear Abdomen: Normal bowel sounds, Soft, Other (ND, mild ttp lower abdomen ) Extremities: No cyanosis, Other (trace upper and lower extremity edema bilaterally ) Skin: No breakdown, No significant lesion Labs LABS Examination: SMALL BOWEL SERIES History: Reason: SBO , 0.5 MIN FLUORO, 15 IMAGES / Spl. Instructions: gastrografin contrast OMNIPAQUE 300MG -300mL USED / History: Comparison/Correlation: 02/07/2013 small bowel series exam Findings: Small bowel series exam was performed utilizing Omnipaque 300. Fluoroscopy was performed for 0.5 minutes. Total 5 fluoroscopic images acquired. Right upper outer quadrant surgical clips are present. Contrast mildly distends the stomach. Contrast reaches the colon at 3 hours 15 minutes. Patient reports significant tenderness and results in significant compression was not applied during fluoroscopic imaging. Terminal ileum is visualized with no stricture. No stricture otherwise along small bowel is present. No obstruction. No suspicious filling defects. Note is made of retention of oral contrast within the stomach. The patient did not consume contrast beyond the initial amount at the beginning of the exam. Impression: Moderate quantity of retained contrast within the stomach is present compatible with reported history of gastroparesis. No obstruction. No strictures. Electronically signed by: Alex Shahid MD (03/12/2020 1:42 PM) [id number] FINAL DIAGNOSIS Problems Medical Problems: (1) Abdominal pain Status: Acute (2) Chronic abdominal pain Status: Acute (3) ESRD (end stage renal disease) on dialysis Status: Acute (4) Hypertensive urgency Status: Acute (5) Small bowel obstruction Status: Acute Brief Hospital Course Ms. Lynch is a 34 old [sex] who presented with [ ACUTE SBO] CONDITION AT DISCHARGE: Improved Discharge Medications Current Medications Fentanyl Citrate (Fentanyl 2ml Vial) 50 mcg 1X ONCE IVP ; Start 03/10/20 at 07:45; Stop 03/10/20 at 07:40; Status DC Famotidine (Pepcid Vial) 20 mg 1X ONCE IVP ; Start 03/10/20 at 07:45; Stop 03/10/20 at 07:40; Status DC Metoclopramide HCl (Reglan Vial) 10 mg 1X ONCE IVP ; Start 03/10/20 at 07:45; Stop 03/10/20 at 07:40; Status DC Hyoscyamine (Anaspaz) 0.125 mg 1X ONCE PO Last administered on 03/10/20at 07:57; Start 03/10/20 at 08:00; Stop 03/10/20 at 08:01; Status DC Fentanyl Citrate (Fentanyl 2ml Vial) 75 mcg 1X ONCE IM Last administered on 03/10/20at 07:57; Start 03/10/20 at 08:00; Stop 03/10/20 at 08:01; Status DC Metoclopramide HCl (Reglan Vial) 10 mg 1X ONCE IM Last administered on 03/10/20at 07:56; Start 03/10/20 at 08:00; Stop 03/10/20 at 08:01; Status DC Famotidine (Pepcid) 20 mg 1X ONCE PO Last administered on 03/10/20at 07:57; Start 03/10/20 at 08:00; Stop 03/10/20 at 08:01; Status DC Clonidine HCl (Catapres) 0.1 mg 1X ONCE PO Last administered on 03/10/20at 08:41; Start 03/10/20 at 08:30; Stop 03/10/20 at 08:50; Status DC Hydromorphone HCl (Dilaudid) 1 mg 1X ONCE IM Last administered on 03/10/20at 09:41; Start 03/10/20 at 09:00; Stop 03/10/20 at 09:01; Status DC Prochlorperazine Edisylate (Compazine) 10 mg 1X ONCE IM Last administered on 03/10/20at 09:39; Start 03/10/20 at 09:00; Stop 03/10/20 at 09:01; Status DC Clonidine HCl (Catapres Tts-2) 1 patch 1X ONCE TD Last administered on 03/10/20at 09:35; Start 03/10/20 at 09:00; Stop 03/10/20 at 09:01; Status DC Insulin Human Lispro (HumaLOG) 0-5 UNITS TIDWMEALS SQ ; Start 03/10/20 at 12:00 Dextrose (Dextrose 50%-Water Syringe) 12.5 gm PRN Q15MIN PRN IV SEE COMMENTS Last administered on 03/12/20at 06:15; Start 03/10/20 at 09:00 Lidocaine (Lidoderm) 1 patch DAILY TD Last administered on 03/13/20at 07:53; Start 03/10/20 at 10:30 Miscellaneous (Lidoderm Patch Removal) 1 ea QHS MC Last administered on 03/13/20at 21:00; Start 03/10/20 at 21:00 Acetaminophen (Tylenol Supp) 650 mg PRN Q4HRS PRN VT TEMP OVER 100.4F OR MILD PAIN; Start 03/10/20 at 10:30 Albuterol/ Ipratropium (Duoneb) 3 ml Q4HRS NEB ; Start 03/10/20 at 12:00; Stop 03/10/20 at 11:59; Status DC Hydralazine HCl (Apresoline Inj) 10 mg PRN Q4HRS PRN IVP ELEVATED BP, SEE COMMENTS; Start 03/10/20 at 10:30; Stop 03/10/20 at 12:03; Status DC Labetalol HCl (Normodyne Iv Push) 20 mg PRN Q2HR PRN IVP HYPERTENSION, 1st CHOICE Last administered on 03/12/20at 13:17; Start 03/10/20 at 12:00 Fentanyl Citrate (Fentanyl 2ml Vial) 50 mcg PRN Q3HRS PRN IVP PAIN Last administered on 03/11/20at 00:36; Start 03/10/20 at 12:00; Stop 03/11/20 at 08:51; Status DC Promethazine HCl (Phenergan Supp) 25 mg PRN Q6HRS PRN VT NAUSEA/VOMITING Last administered on 03/10/20at 16:35; Start 03/10/20 at 12:00 Albuterol Sulfate (Ventolin Neb Soln) 2.5 mg PRN Q4HRS PRN NEB SHORTNESS OF BREATH; Start 03/10/20 at 12:15 Hydralazine HCl (Apresoline Inj) 20 mg PRN Q4HRS PRN IVP ELEVATED BP, 2nd CHOICE Last administered on 03/12/20at 07:44; Start 03/10/20 at 12:15 Pantoprazole Sodium (PROTONIX VIAL for IV PUSH) 40 mg DAILYAC IVP Last administered on 03/13/20at 07:52; Start 03/10/20 at 13:00; Stop 03/13/20 at 10:11; Status DC Fentanyl Citrate (Fentanyl 2ml Vial) 75 mcg 1X ONCE IM Last administered on 03/10/20at 13:29; Start 03/10/20 at 12:30; Stop 03/10/20 at 12:31; Status DC Prochlorperazine Edisylate (Compazine) 10 mg PRN Q6HRS PRN IV NAUSEA/VOMITING Last administered on 03/13/20at 20:30; Start 03/10/20 at 13:30 Nicardipine HCl 50 mg/Sodium Chloride 250 ml @ 25 mls/hr CONT PRN IV SEE I/O RECORD Last administered on 03/11/20at 02:11; Start 03/10/20 at 16:00 Fentanyl Citrate (Fentanyl 2ml Vial) 25 mcg 1X ONCE IVP Last administered on 03/10/20at 20:33; Start 03/10/20 at 20:15; Stop 03/10/20 at 20:16; Status DC Fentanyl Citrate (Fentanyl 2ml Vial) 50 mcg PRN Q2HRS PRN IV PAIN Last administered on 03/13/20at 11:10; Start 03/11/20 at 06:45; Stop 03/13/20 at 11:24; Status DC Scopolamine (Transderm-Scop) 1 patch Q3DAYS@0700 TD Last administered on 03/14/20at 06:35; Start 03/11/20 at 07:00 Iohexol (Omnipaque 300 Mg/ml) 400 ml 1X ONCE PO ; Start 03/11/20 at 09:45; Stop 03/11/20 at 09:49; Status DC Info (CONTRAST GIVEN -- Rx MONITORING) 1 each PRN DAILY PRN MC SEE COMMENTS; Start 03/11/20 at 10:00; Stop 03/13/20 at 09:59; Status DC Lorazepam (Ativan Inj) 0.5 mg 1X ONCE IVP Last administered on 03/11/20at 13:23; Start 03/11/20 at 12:45; Stop 03/11/20 at 12:46; Status DC Phenol (Chloraseptic) 1 spray PRN Q2HR PRN PO SORE THROAT Last administered on 03/12/20at 03:39; Start 03/11/20 at 17:45 Diphenhydramine HCl (Benadryl) 12.5 mg 1X ONCE IVP Last administered on 03/11/20at 18:11; Start 03/11/20 at 17:45; Stop 03/11/20 at 17:46; Status DC Bisacodyl (Dulcolax Supp) 10 mg PRN DAILY PRN VT CONSTIPATION; Start 03/11/20 at 17:45 Diphenhydramine HCl (Benadryl) 12.5 mg PRN Q4HRS PRN IVP itching Last administered on 03/14/20at 08:56; Start 03/11/20 at 20:15 Iohexol (Omnipaque 300 Mg/ml) 400 ml 1X ONCE PO Last administered on 03/12/20at 09:00; Start 03/12/20 at 08:30; Stop 03/12/20 at 08:31; Status DC Amlodipine Besylate (Norvasc) 10 mg DAILY PO Last administered on 03/14/20at 08:55; Start 03/12/20 at 19:00 Hydralazine HCl (Apresoline) 50 mg TID PO Last administered on 03/14/20at 08:55; Start 03/12/20 at 21:00 Isosorbide Mononitrate (Imdur) 30 mg DAILY PO Last administered on 03/12/20at 18:26; Start 03/12/20 at 19:00; Stop 03/12/20 at 18:40; Status DC Carvedilol (Coreg) 25 mg BIDWMEALS PO Last administered on 03/14/20at 08:55; Start 03/12/20 at 19:00 Sodium Chloride 1,000 ml @ 1,000 mls/hr Q1H PRN IV hypotension; Start 03/13/20 at 08:51; Stop 03/13/20 at 14:50; Status DC Sodium Chloride 1,000 ml @ 400 mls/hr Q2H30M PRN IV PATENCY; Start 03/13/20 at 08:51; Stop 03/13/20 at 20:50; Status DC Info (PHARMACY MONITORING -- do not chart) 1 each PRN DAILY PRN MC SEE COMMENTS; Start 03/13/20 at 09:00 Pantoprazole Sodium (Protonix) 40 mg DAILYAC PO Last administered on 03/14/20at 08:55; Start 03/14/20 at 07:30 Polyethylene Glycol (miraLAX PACKET) 17 gm PRN DAILY PRN PO CONSTIPATION; Start 03/13/20 at 10:15 Bisacodyl (Dulcolax Tab) 5 mg PRN DAILY PRN PO CONSTIPATION; Start 03/13/20 at 10:15 Lidocaine (Lidoderm) 1 patch DAILY TD Last administered on 03/13/20at 14:21; Start 03/13/20 at 14:00 Miscellaneous (Lidoderm Patch Removal) 1 ea QHS MC Last administered on 03/13/20at 21:00; Start 03/13/20 at 21:00 Hydrocortisone (Cortaid) 1 gregorio PRN Q2HRS PRN TP ITCHING Last administered on 03/13/20at 14:20; Start 03/13/20 at 14:00 Hydromorphone HCl (Dilaudid) 0.5 mg 1X ONCE IV Last administered on 03/13/20at 17:19; Start 03/13/20 at 17:30; Stop 03/13/20 at 17:31; Status DC Hydromorphone HCl (Dilaudid) 1 mg 1X PRN PRN PO SEVERE PAIN 7-10 Last administered on 03/13/20at 23:55; Start 03/14/20 at 00:00 Active Scripts Active Orphenadrine Citrate 100 Mg Tablet.er 1 Tab PO BID PRN 10 Days Reglan (Metoclopramide Hcl) 10 Mg Tablet 1 Tab PO QID PRN 5 Days before food and bedtime Promethazine Hcl 12.5 Mg Tablet 12.5 Mg PO Q6H PRN Levsin-Sl (Hyoscyamine Sulfate) 0.125 Mg Tab.subl 0.125 Mg SL PRN Q4-6HRS PRN Isosorbide Mononitrate Er (Isosorbide Mononitrate) 30 Mg Tab.er.24h 1 Tab PO DAILY 30 Days Lidocaine PATCH (Lidocaine) 1 Each Adh..patch 1 Patch TD DAILY 30 Days Cyclobenzaprine Hcl 10 Mg Tablet 10 Mg PO PRN Q6HRS PRN 10 Days Reported Amlodipine Besylate 10 Mg Tablet 10 Mg PO DAILY Hydralazine Hcl 50 Mg Tablet 1 Tab PO TID Carvedilol 25 Mg Tablet 25 Mg PO BIDWMEALS Promethazine Hcl 25 Mg Tablet 1 Tab PO PRN Q6HRS Miralax (Polyethylene Glycol 3350) 17 Gm Powd.pack 1 Packet PO BID Lantus (Insulin Glargine,Hum.rec.anlog) 100 Unit/1 Ml Vial 25 Unit SQ QHS Novolog (Insulin Aspart) 100 Unit/1 Ml Cartridge 4 Unit SQ TID Lexapro (Escitalopram Oxalate) 20 Mg Tablet 1 Tab PO DAILY Pantoprazole Sodium (Pantoprazole Sodium) 40 Mg Tablet.dr 1 Tab PO DAILY Dicyclomine Hcl 10 Mg Capsule 1 Cap PO TID Vital Signs Vital Signs Date Time Temp Pulse Resp B/P (MAP) Pulse Ox O2 Delivery O2 Flow Rate FiO2 03/14/20 08:55 90 03/14/20 07:00 98.1 14 153/98 (116) 96 Room Air 98.1 Labs Laboratory Tests Test 03/12/20 12:57 03/12/20 18:12 03/12/20 20:39 03/13/20 04:00 Glucose (Fingerstick) 95 mg/dL (70-99) 168 mg/dL (70-99) 135 mg/dL (70-99) White Blood Count 6.3 x10^3/uL (4.0-11.0) Red Blood Count 3.21 x10^6/uL (3.50-5.40) Hemoglobin 9.7 g/dL (12.0-15.5) Hematocrit 29.0 % (36.0-47.0) Mean Corpuscular Volume 90 fL (79-100) Mean Corpuscular Hemoglobin 30 pg (25-35) Mean Corpuscular Hemoglobin Concent 33 g/dL (31-37) Red Cell Distribution Width 16.9 % (11.5-14.5) Platelet Count 244 x10^3/uL (140-400) Neutrophils (%) (Auto) 41 % (31-73) Lymphocytes (%) (Auto) 45 % (24-48) Monocytes (%) (Auto) 9 % (0-9) Eosinophils (%) (Auto) 5 % (0-3) Basophils (%) (Auto) 1 % (0-3) Neutrophils # (Auto) 2.6 x10^3/uL (1.8-7.7) Lymphocytes # (Auto) 2.8 x10^3/uL (1.0-4.8) Monocytes # (Auto) 0.5 x10^3/uL (0.0-1.1) Eosinophils # (Auto) 0.3 x10^3/uL (0.0-0.7) Basophils # (Auto) 0.0 x10^3/uL (0.0-0.2) Sodium Level 138 mmol/L (136-145) Potassium Level 3.7 mmol/L (3.5-5.1) Chloride Level 101 mmol/L (98-107) Carbon Dioxide Level 28 mmol/L (21-32) Anion Gap 9 (6-14) Blood Urea Nitrogen 22 mg/dL (7-20) Creatinine 4.7 mg/dL (0.6-1.0) Estimated GFR (Cockcroft-Gault) 13.0 BUN/Creatinine Ratio 5 (6-20) Glucose Level 147 mg/dL (70-99) Calcium Level 8.1 mg/dL (8.5-10.1) Total Bilirubin 0.1 mg/dL (0.2-1.0) Aspartate Amino Transf (AST/SGOT) 11 U/L (15-37) Alanine Aminotransferase (ALT/SGPT) 10 U/L (14-59) Alkaline Phosphatase 82 U/L (46-116) Total Protein 6.5 g/dL (6.4-8.2) Albumin 3.0 g/dL (3.4-5.0) Albumin/Globulin Ratio 0.9 (1.0-1.7) Test 03/13/20 07:19 03/13/20 12:33 03/13/20 16:39 Glucose (Fingerstick) 139 mg/dL (70-99) 78 mg/dL (70-99) 146 mg/dL (70-99) Laboratory Tests Test 03/13/20 12:33 03/13/20 16:39 Glucose (Fingerstick) 78 mg/dL (70-99) 146 mg/dL (70-99) Allergies Allergies Coded Allergies Type Severity Reaction Last Updated Verified ondansetron Allergy Severe edema 07/12/19 Yes ketorolac Allergy Intermediate hives 07/12/19 Yes morphine Allergy Intermediate hives 07/12/19 Yes Disposition/Orders: D/C to Home Justicifation of Admission Dx: Justifications for Admission: Justification of Admission Dx: Yes GINA PIÑA MD Mar 14, 2020 10:53
[2020-03-14] MEDS ORDERED: PROM25SU3 PR (10:58)
[2020-03-14] MEDS ORDERED: BISA5TAB4 PO (10:58)
[2020-03-14] MEDS ORDERED: HYDR28OI6 TP (10:58)
[2020-03-14] MEDS ORDERED: SCOP1PAT11 TD (10:58)
[2020-03-14] MEDS ORDERED: ALBU2.5V8 NEB (10:58)
[2020-03-14] MEDS ORDERED: ACET650S11 PR (10:58)
--- NOTE | 2020-03-14 11:00 | DISCH ---
DISCHARGE INSTRUCTIONS Condition on Discharge Condition on Discharge: Guarded Activity After Discharge Activity Instructions for Disc: Activity as tolerated, Progressive ambulation Lifting Instructions after Dis: No heavy lifting, No pulling or pushing Driving Instructions after Dis: Do not drive today Weight Bearing Status after Di: Full weight bearing Diet after Discharge Diet after Discharge: Renal Dialysis Diet Texture: Regular Liquid Texture: Thin Liquid Swallowing Supervision: None needed Wound Incision Care Wound/Incision Care: No wound care needed Checks after Discharge Checks after discharge: Check blood press - daily Contacting the DRRik after DC Call your doctor for: If your condition worsens Treatment/Equipment after DC Adaptive Equipment Issued: None Warfarin Follow-Up Warfarin Follow UP: SEE GI SERVICE NEXT WEEK [facility], PCP GINA REAL MD Mar 14, 2020 11:00
--- NOTE | 2020-03-14 11:14 | PDOC ---
SUBJECTIVE ROS stable, no complaints, wants to go home OBJECTIVE Vital Signs Vital Signs Date Time Temp Pulse Resp B/P (MAP) Pulse Ox O2 Delivery O2 Flow Rate FiO2 03/14/20 08:55 90 03/14/20 07:00 98.1 14 153/98 (116) 96 Room Air 98.1 I & 0 Intake and Output 03/14/20 07:00 Intake Total 1620 ml Balance 1620 ml Intake Oral 1620 ml PHYSICAL EXAM Physical Exam GEN: NAD HEEN: OM moist NECK: supple CVS: S1S2 RESP: CTA, No Acc. Muscle Use : No CVA tenderness, No Suprapubic Tenderness, No choi NEUR--Grossly normal SKIN No rash EXT No LE edema, has TDC DIAGNOSIS/ASSESSMENT Assessment & Plan ESRD - On HD TTS No indication for HD today Hypertension - per Cardiology Abdominal pain---Recurrent n/v, abd pain - resolved - SBS as above w/o obstruct ion Hx of pancreatitis Gastroparesis- 2/2 DM DM- per primary Drug abuse - Marijuana Positive Anemia - Hgb stable, No indication for ZORAIDA COMMENT/RELEVANT DATA Meds Current Medications Medications (Trade) Dose Ordered Sig/Brown Start Time Stop Time Status Last Admin Dose Admin Acetaminophen (Tylenol Supp) 650 mg PRN Q4HRS PRN 03/10/20 10:30 Albuterol Sulfate (Ventolin Neb Soln) 2.5 mg PRN Q4HRS PRN 03/10/20 12:15 Albuterol/ Ipratropium (Duoneb) 3 ml Q4HRS 03/10/20 12:00 03/10/20 11:59 DC Amlodipine Besylate (Norvasc) 10 mg DAILY 03/12/20 19:00 03/14/20 08:55 10 MG Bisacodyl (Dulcolax Supp) 10 mg PRN DAILY PRN 03/11/20 17:45 Bisacodyl (Dulcolax Tab) 5 mg PRN DAILY PRN 03/13/20 10:15 Carvedilol (Coreg) 25 mg BIDWMEALS 03/12/20 19:00 03/14/20 08:55 25 MG Clonidine HCl (Catapres Tts-2) 1 patch 1X ONCE 03/10/20 09:00 03/10/20 09:01 DC 03/10/20 09:35 1 PATCH Clonidine HCl (Catapres) 0.1 mg 1X ONCE 03/10/20 08:30 03/10/20 08:50 DC 03/10/20 08:41 0.1 MG Dextrose (Dextrose 50%-Water Syringe) 12.5 gm PRN Q15MIN PRN 03/10/20 09:00 03/12/20 06:15 12.5 GM Diphenhydramine HCl (Benadryl) 12.5 mg PRN Q4HRS PRN 03/11/20 20:15 03/14/20 08:56 12.5 MG Famotidine (Pepcid Vial) 20 mg 1X ONCE 03/10/20 07:45 03/10/20 07:40 DC Famotidine (Pepcid) 20 mg 1X ONCE 03/10/20 08:00 03/10/20 08:01 DC 03/10/20 07:57 20 MG Fentanyl Citrate (Fentanyl 2ml Vial) 50 mcg PRN Q2HRS PRN 03/11/20 06:45 03/13/20 11:24 DC 03/13/20 11:10 50 MCG Hydralazine HCl (Apresoline Inj) 20 mg PRN Q4HRS PRN 03/10/20 12:15 03/12/20 07:44 20 MG Hydralazine HCl (Apresoline) 50 mg TID 03/12/20 21:00 03/14/20 08:55 50 MG Hydrocortisone (Cortaid) 1 gregorio PRN Q2HRS PRN 03/13/20 14:00 03/13/20 14:20 1 GREGORIO Hydromorphone HCl (Dilaudid) 1 mg 1X PRN PRN 03/14/20 00:00 03/13/20 23:55 1 MG Hyoscyamine (Anaspaz) 0.125 mg 1X ONCE 03/10/20 08:00 03/10/20 08:01 DC 03/10/20 07:57 0.125 MG Info (CONTRAST GIVEN -- Rx MONITORING) 1 each PRN DAILY PRN 03/11/20 10:00 03/13/20 09:59 DC Info (PHARMACY MONITORING -- do not chart) 1 each PRN DAILY PRN 03/13/20 09:00 Insulin Human Lispro (HumaLOG) 0-5 UNITS TIDWMEALS 03/10/20 12:00 Iohexol (Omnipaque 300 Mg/ml) 400 ml 1X ONCE 03/12/20 08:30 03/12/20 08:31 DC 03/12/20 09:00 400 ML Isosorbide Mononitrate (Imdur) 30 mg DAILY 03/12/20 19:00 03/12/20 18:40 DC 03/12/20 18:26 30 MG Labetalol HCl (Normodyne Iv Push) 20 mg PRN Q2HR PRN 03/10/20 12:00 03/12/20 13:17 20 MG Lidocaine (Lidoderm) 1 patch DAILY 03/13/20 14:00 03/13/20 14:21 1 PATCH Lorazepam (Ativan Inj) 0.5 mg 1X ONCE 03/11/20 12:45 03/11/20 12:46 DC 03/11/20 13:23 0.5 MG Metoclopramide HCl (Reglan Vial) 10 mg 1X ONCE 03/10/20 08:00 03/10/20 08:01 DC 03/10/20 07:56 10 MG Miscellaneous (Lidoderm Patch Removal) 1 ea QHS 03/13/20 21:00 03/13/20 21:00 1 EA Nicardipine HCl 50 mg/Sodium Chloride 250 ml @ 25 mls/hr CONT PRN 03/10/20 16:00 03/11/20 02:11 25 MLS/HR Pantoprazole Sodium (PROTONIX VIAL for IV PUSH) 40 mg DAILYAC 03/10/20 13:00 03/13/20 10:11 DC 03/13/20 07:52 40 MG Pantoprazole Sodium (Protonix) 40 mg DAILYAC 03/14/20 07:30 03/14/20 08:55 40 MG Phenol (Chloraseptic) 1 spray PRN Q2HR PRN 03/11/20 17:45 03/12/20 03:39 1 SPRAY Polyethylene Glycol (miraLAX PACKET) 17 gm PRN DAILY PRN 03/13/20 10:15 Prochlorperazine Edisylate (Compazine) 10 mg PRN Q6HRS PRN 03/10/20 13:30 03/13/20 20:30 10 MG Promethazine HCl (Phenergan Supp) 25 mg PRN Q6HRS PRN 03/10/20 12:00 03/10/20 16:35 25 MG Scopolamine (Transderm-Scop) 1 patch Q3DAYS@0700 03/11/20 07:00 03/14/20 06:35 1 PATCH Sodium Chloride 1,000 ml @ 400 mls/hr Q2H30M PRN 03/13/20 08:51 03/13/20 20:50 DC Lab Laboratory Tests Test 03/13/20 12:33 03/13/20 16:39 03/14/20 10:42 Glucose (Fingerstick) 78 mg/dL (70-99) 146 mg/dL (70-99) 187 mg/dL (70-99) Results All relevant outside records, renal labs, imaging studies, telemetry/EKG's were reviewed. Justicifation of Admission Dx: Justifications for Admission: Justification of Admission Dx: Yes MELLISSA DE MD Mar 14, 2020 11:14
[2020-03-14 11:28] VITALS: BP 133/82
--- NOTE | 2020-03-14 12:26 | NUR ---
Discharge: Teaching verbal and written. Reviewed medications, follow-up, HTN, gastroparesis, dialysis diet, Patient verbalized understanding. All belongings with patient. Patient ambulated off of unit.
== END 2020-03-14 12:07 | disposition home or self-care (01) | DRG 388 ==
LOC: ER 07:14 → 2 SOUTH 08:50
PROVIDERS: ADMIT Family Medicine; ATTEND Family Medicine
PROC: 02HV33Z Insertion of Infusion Device into Superior Vena Cava, Percutaneous Approach (ICD-10-PCS; principal; 2020-03-11)
PROC: B548ZZA Ultrasonography of Superior Vena Cava, Guidance (ICD-10-PCS; 2020-03-11)
PROC: 5A1D70Z Performance of Urinary Filtration, Intermittent, Less than 6 Hours Per Day (ICD-10-PCS; 2020-03-13)
DX: K56.7 Ileus, unspecified (principal); N18.6 End stage renal disease; I12.0 Hypertensive chronic kidney disease with stage 5 chronic kidney disease or end stage renal disease; D35.02 Benign neoplasm of left adrenal gland; E10.22 Type 1 diabetes mellitus with diabetic chronic kidney disease; E10.43 Type 1 diabetes mellitus with diabetic autonomic (poly)neuropathy; E78.5 Hyperlipidemia, unspecified; F17.210 Nicotine dependence, cigarettes, uncomplicated; F32.9 Major depressive disorder, single episode, unspecified; F41.9 Anxiety disorder, unspecified; G89.29 Other chronic pain; I16.0 Hypertensive urgency; D64.9 Anemia, unspecified; F12.10 Cannabis abuse, uncomplicated; K21.9 Gastro-esophageal reflux disease without esophagitis; K31.84 Gastroparesis; Z79.4 Long term (current) use of insulin; Z82.49 Family history of ischemic heart disease and other diseases of the circulatory system; Z90.49 Acquired absence of other specified parts of digestive tract; Z91.19 Patient's noncompliance with other medical treatment and regimen; Z99.2 Dependence on renal dialysis; Z98.51 Tubal ligation status; Z88.5 Allergy status to narcotic agent; Z88.8 Allergy status to other drugs, medicaments and biological substances
CPT/HCPCS: 36415; 36556; 71045; 74022; 74176; 74250; 76937; 80053; 80307; 82962; 83690; 83735; 84478; 84703; 85025; 85610; 85730; 86706; 87340; 93005; 93306; 96372; 99291; C1892; C9113; G0480; J0360; J0780; J1170; J1200; J2060; J2765; J3010; J3490; J7050; Q9967; G0378; J7030

== ENCOUNTER 2020-05-08 14:37 | Emergency (ER) | payer OTHER ==
[~2020-05-08] VITALS: Ht 167.6 cm; Wt 55.7 kg
[~2020-05-08 14:37] MED LIST changes: +ACET650S11 PR; +ALBU2.5V8 NEB; +BISA5TAB4 PO; +HYDR28OI6 TP; +PROM25SU3 PR; +SCOP1PAT11 TD
[2020-05-08] MEDS ORDERED: fentaNYL PF VIAL 100 MCG/2 ML VIAL IV ONE (16:15)
[2020-05-08] MEDS ORDERED: IV NORMAL SALINE 1000ML BAG 1,000 ML IV ONE (16:15)
[2020-05-08] MEDS ORDERED: PROCHLORPERAZINE 10 MG/2 ML VIAL. IV ONE (16:15)
[2020-05-08 16:28] LABS: BASO # 0.1 x10^3/uL (0.0-0.2); BASO % 1 % (0-3); EOS # 0.1 x10^3/uL (0.0-0.7); EOS % 1 % (0-3); HEMATOCRIT 34.7 % (36.0-47.0); HEMOGLOBIN 11.7 g/dL (12.0-15.5); LYMPH % 27 % (24-48); MEAN CORPUSCULAR HEMOGLOBIN 31 pg (25-35); MEAN CORPUSCULAR HGB CONC 34 g/dL (31-37); MEAN CORPUSCULAR VOLUME 91 fL (79-100); MONO # 0.4 x10^3/uL (0.0-1.1); MONO % 6 % (0-9); NEUT # 4.9 x10^3/uL (1.8-7.7); NEUT % 66 % (31-73); PLATELET COUNT 237 x10^3/uL (140-400); RED CELL DISTRIBUTION WIDTH 16.1 % (11.5-14.5); WHITE BLOOD COUNT 7.5 x10^3/uL (4.0-11.0)
[2020-05-08 16:34] LABS: GFR 21.9; POTASSIUM 3.5 mmol/L (3.5-5.1)
[2020-05-08 16:39] LABS: ALBUMIN 3.9 g/dL (3.4-5.0); ALBUMIN/GLOBULIN RATIO 0.9 (1.0-1.7); TOTAL BILIRUBIN 0.3 mg/dL (0.2-1.0); TOTAL PROTEIN 8.2 g/dL (6.4-8.2)
[2020-05-08 16:44] VITALS: BP 145/94
[2020-05-08 16:46] LABS: BILIRUBIN,URINE SMALL (NEG); CLARITY,URINE CLOUDY; COLOR,URINE AMBER; NITRITE,URINE NEGATIVE (NEG); PH,URINE 5.5 (<5.0-8.0); PROTEIN,URINE >=300 mg/dL (NEG-TRACE)
[2020-05-08 16:47] LABS: HYALINE CASTS, URINE FEW /HPF; SQUAMOUS EPITHELIAL CELL,UR FEW /LPF
[2020-05-08 16:48] LABS: BACTERIA,URINE FEW /HPF (0-FEW); RBC,URINE 0 /HPF (0-2); WBC,URINE OCC /HPF (0-4)
--- NOTE | 2020-05-08 17:08 | PHYS DOC ---
Past Medical History Past Medical History: Diabetes-Type I, Hypertension, Kidney Infection, Pancreatitis, Renal Failure, Other Additional Past Medical Histor: GASTROPERESIS,DIALYSIS,SM BOWEL OBSTRUCTION (BEENA DUNN APRN) Past Surgical History: Cholecystectomy, , Tubal ligation, Other Additional Past Surgical Histo: FISTULA LEFT ARM, SHUNT RIGHT CHEST (BEENA DUNN APRN) Smoking Status: Current Every Day Smoker Additional Information: 0.5 PPD Alcohol Use: Occasionally Drug Use: None (BEENA DUNN APRN) General Adult EDM: Chief Complaint: ABDOMINAL PAIN HPI: HPI: Patient is a 34 year old aa female who presents to the emergency department with complaints of generalized abdominal pain nausea, and vomiting. She reports that the symptoms began today after she had dialysis. She denies any fever, diarrhea, dysuria, hematuria, back pain, body aches, fatigue, cough, shortness of breath, or chest pain. Patient states it feels like her gastroparesis is acting up. She reports her last bowel movement was this morning and it was normal. She currently rates the pain a 10 out of 10 on pain scale, she denies any alleviating factors she reports that the pain is worse when she vomits. (BEENA DUNN APRN) Review of Systems: Review of Systems: Constitutional: Denies fever or chills. [] Eyes: Denies change in visual acuity. [] HENT: Denies nasal congestion or sore throat. [] Respiratory: Denies cough or shortness of breath. [] Cardiovascular: Denies chest pain or edema. [] GI: See HPI : Denies dysuria. [] Musculoskeletal: Denies back pain or joint pain. [] Integument: Denies rash. [] Neurologic: Denies headache Psychiatric: Denies depression or anxiety. [] (BEENA DUNN APRN) Heart Score: Risk Factors: Risk Factors: DM, Current or recent (<one month) smoker, HTN, HLP, family history of CAD, obesity. Risk Scores: Score 0 - 3: 2.5% MACE over next 6 weeks - Discharge Home Score 4 - 6: 20.3% MACE over next 6 weeks - Admit for Clinical Observation Score 7 - 10: 72.7% MACE over next 6 weeks - Early Invasive Strategies (BEENA DUNN APRN) Current Medications: Current Medications Medications (Trade) Dose Ordered Sig/Brown Start Time Stop Time Status Last Admin Dose Admin Fentanyl Citrate (Fentanyl 2ml Vial) 50 mcg 1X ONCE 05/08/20 16:15 05/08/20 16:18 DC 05/08/20 16:27 50 MCG Prochlorperazine Edisylate (Compazine) 10 mg 1X ONCE 05/08/20 16:15 05/08/20 16:18 DC 05/08/20 16:27 10 MG Sodium Chloride 1,000 ml @ 1,000 mls/hr 1X ONCE 05/08/20 16:15 05/08/20 17:14 05/08/20 16:26 1,000 MLS/HR (BEENA DUNN APRN) Allergies: Allergies: Allergies Coded Allergies Type Severity Reaction Last Updated Verified ondansetron Allergy Severe edema 07/12/19 Yes ketorolac Allergy Intermediate hives 07/12/19 Yes morphine Allergy Intermediate hives 07/12/19 Yes (BEENA DUNN APRN) Physical Exam: PE: Constitutional: Well developed, well nourished, moaning in pain, non-toxic appearance. [] HENT: Normocephalic, atraumatic, bilateral external ears normal, oropharynx moist, nose normal. [] Eyes: PERRLA, EOMI, conjunctiva normal, no discharge. [] Neck: Normal range of motion, no stridor. [] Cardiovascular:Heart rate regular rhythm, no murmur [] Lungs & Thorax: Bilateral breath sounds clear to auscultation [] Abdomen: Bowel sounds normal, soft, no guarding , no rebound tenderness, no masses, no pulsatile masses; epigastric tenderness to palpation. [] Skin: Warm, dry, no erythema, no rash. [] Back: No tenderness, no CVA tenderness. [] Extremities: No cyanosis, ROM intact, no edema. [] Neurologic: Alert and oriented X 3, no focal deficits noted. [] Psychologic: Affect normal, judgement normal, mood normal. [] (BEENA DUNN APRN) Current Patient Data: Labs: Laboratory Tests Test 05/08/20 15:42 05/08/20 16:17 05/08/20 16:40 White Blood Count 7.5 x10^3/uL (4.0-11.0) Red Blood Count 3.80 x10^6/uL (3.50-5.40) Hemoglobin 11.7 g/dL (12.0-15.5) L Hematocrit 34.7 % (36.0-47.0) L Mean Corpuscular Volume 91 fL (79-100) Mean Corpuscular Hemoglobin 31 pg (25-35) Mean Corpuscular Hemoglobin Concent 34 g/dL (31-37) Red Cell Distribution Width 16.1 % (11.5-14.5) H Platelet Count 237 x10^3/uL (140-400) Neutrophils (%) (Auto) 66 % (31-73) Lymphocytes (%) (Auto) 27 % (24-48) Monocytes (%) (Auto) 6 % (0-9) Eosinophils (%) (Auto) 1 % (0-3) Basophils (%) (Auto) 1 % (0-3) Neutrophils # (Auto) 4.9 x10^3/uL (1.8-7.7) Lymphocytes # (Auto) 2.0 x10^3/uL (1.0-4.8) Monocytes # (Auto) 0.4 x10^3/uL (0.0-1.1) Eosinophils # (Auto) 0.1 x10^3/uL (0.0-0.7) Basophils # (Auto) 0.1 x10^3/uL (0.0-0.2) Sodium Level 138 mmol/L (136-145) Potassium Level 3.5 mmol/L (3.5-5.1) Chloride Level 100 mmol/L (98-107) Carbon Dioxide Level 32 mmol/L (21-32) Anion Gap 6 (6-14) Blood Urea Nitrogen 11 mg/dL (7-20) Creatinine 3.0 mg/dL (0.6-1.0) H Estimated GFR (Cockcroft-Gault) 21.9 BUN/Creatinine Ratio 4 (6-20) L Glucose Level 119 mg/dL (70-99) H Calcium Level 9.0 mg/dL (8.5-10.1) Magnesium Level 2.0 mg/dL (1.8-2.4) Total Bilirubin 0.3 mg/dL (0.2-1.0) Aspartate Amino Transferase (AST) 17 U/L (15-37) Alanine Aminotransferase (ALT) 17 U/L (14-59) Alkaline Phosphatase 100 U/L (46-116) Total Protein 8.2 g/dL (6.4-8.2) Albumin 3.9 g/dL (3.4-5.0) Albumin/Globulin Ratio 0.9 (1.0-1.7) L Lipase 290 U/L (73-393) Urine Collection Type U cath Urine Color [place] Urine Clarity Cloudy Urine pH 5.5 (<5.0-8.0) Urine Specific [place] 1.025 (1.000-1.030) Urine Protein >=300 mg/dL (NEG-TRACE) Urine Glucose (UA) Negative mg/dL (NEG) Urine Ketones (Stick) Trace mg/dL (NEG) Urine Blood Negative (NEG) Urine Nitrite Negative (NEG) Urine Bilirubin Small (NEG) Urine Urobilinogen Dipstick 1.0 mg/dL (0.2 mg/dL) Urine Leukocyte Esterase Small (NEG) Urine RBC 0 /HPF (0-2) Urine WBC Occ /HPF (0-4) Urine Squamous Epithelial Cells Few /LPF Urine Bacteria Few /HPF (0-FEW) Urine Hyaline Casts Few /HPF POC Urine HCG, Qualitative Hcg negative (Negative) Laboratory Tests 05/08/20 15:42 Laboratory Tests 05/08/20 15:42 Vital Signs: Vital Signs Date Time Temp Pulse Resp B/P (MAP) Pulse Ox O2 Delivery O2 Flow Rate FiO2 05/08/20 16:27 18 98 05/08/20 15:08 98.9 87 143/85 (104) Room Air 98.9 (BEENA DUNN APRN) EKG: EKG: [] (BEENA DUNN APRN) Radiology/Procedures: Radiology/Procedures: [] (BEENA DUNN APRN) Course & Med Decision Making: Course & Med Decision Making Pertinent Labs and Imaging studies reviewed. (See chart for details) 34-year-old female presents emergency room with complaints of nausea, vomiting and generalized abdominal pain. She reported history of gastroparesis. Patient was given a liter of normal saline, 10 of Compazine, and 50 of fentanyl in the emergency department she reported feeling better after these medications. She stated that her abdominal pain went away completely and she denied any nausea. The patient requested medication for nausea at home. I encouraged the patient to follow-up with her primary care doctor if symptoms persist, return to dialysis on Tuesday as planned. Return to the ER if symptoms worsen or fever develops. Prescription was written for Phenergan suppositories. Patient verbalized an understanding of home care, medications, follow-up, and return to ED instructions and was in agreement with the plan of care. (BEENA DUNN APRN) Course & Med Decision Making I have reviewed the PA/ARCHITECT's note and Plan of Care. I was available for consultation as needed during the patient's visit in the emergency department. I agree with the clinical impression, plans and disposition. (SOILA VELASQUEZ MD) Dragon Disclaimer: Dragon Disclaimer: This electronic medical record was generated, in whole or in part, using a voice recognition dictation system. (BEENA DUNN APRN) Departure Departure Impression: Primary Impression: Abdominal pain Qualified Codes: R10.30 - Lower abdominal pain, unspecified Additional Impression: Vomiting Qualified Codes: R11.2 - Nausea with vomiting, unspecified Disposition: HOME, SELF-CARE Condition: STABLE Referrals: YASMANY CHISHOLM (PCP) Patient Instructions: Nausea and Vomiting, Lypt-yc-Alhp Additional Instructions: Fill prescriptions and use them as directed. Recommend clear fluids for the next 24 hours. Then you may advance to bland foods such as bananas, rice, applesau ce, and dry toast. Follow-up with your primary care doctor in the next 1-2 days. Return to the emergency room if your symptoms worsen. Scripts Promethazine Hcl (PROMETHAZINE HCL) 25 Mg Supp.rect 25 MG RC Q6H PRN for NAUSEA/VOMITING, #10 SUPP 0 Refills Prov: BEENA DUNN APRN 05/08/20 Justicifation of Admission Dx: Justifications for Admission: Justification of Admission Dx: N/A (BEENA DUNN APRN) BEENA DUNN APRN May 08, 2020 17:08 SOILA VELASQUEZ MD May 09, 2020 20:30
[2020-05-08] MEDS ORDERED: PROM25SU33 RC (17:16)
[2020-05-09] MEDS ORDERED: DOXY1TAB3 PO (00:47)
== END 2020-05-08 17:35 | disposition home or self-care (01) ==
LOC: ER 14:37
DX: R10.84 Generalized abdominal pain (principal); R11.2 Nausea with vomiting, unspecified; R10.13 Epigastric pain; E10.22 Type 1 diabetes mellitus with diabetic chronic kidney disease; I12.9 Hypertensive chronic kidney disease with stage 1 through stage 4 chronic kidney disease, or unspecified chronic kidney disease; N18.9 Chronic kidney disease, unspecified; Z90.49 Acquired absence of other specified parts of digestive tract; Z98.51 Tubal ligation status; Z99.2 Dependence on renal dialysis; F17.200 Nicotine dependence, unspecified, uncomplicated; Z88.5 Allergy status to narcotic agent; Z88.6 Allergy status to analgesic agent
CPT/HCPCS: 36415; 80053; 81001; 81025; 83690; 83735; 85025; 87086; 96361; 96374; 96375; 99285; J0780; J3010; J7030

== ENCOUNTER 2020-05-08 21:38 | Emergency (ER) | payer OTHER ==
[~2020-05-08] VITALS: Ht 167.6 cm; Wt 54.5 kg
[~2020-05-08 21:38] MED LIST changes: +PROM25SU33 RC
--- NOTE | 2020-05-08 22:04 | PHYS DOC ---
Past Medical History Past Medical History: Diabetes-Type I, Hypertension, Kidney Infection, Pa ncreatitis, Renal Failure, Other Additional Past Medical Histor: GASTROPERESIS,DIALYSIS,SM BOWEL OBSTRUCTION Past Surgical History: Cholecystectomy, , Tubal ligation, Other Additional Past Surgical Histo: FISTULA LEFT ARM, SHUNT RIGHT CHEST Smoking Status: Current Every Day Smoker Alcohol Use: Occasionally Drug Use: None General Adult EDM: Chief Complaint: ABDOMINAL PAIN HPI: HPI: The history was obtained from the patient. Patient is a 34-year-old female with PMH dialysis, gastroparesis, small bowel obstruction, diabetes who presents with a chief complaint of abdominal pain. Patient states she has had abdominal pain since completing full dialysis treatment today. She gets dialysis on Saturdays. He states the pain is diffuse in nature. States it feels similar to history of pancreatitis. She does note that she smokes marijuana but states only occasionally. Denies any alcohol consumption. Does still make urine but denies any dysuria or hematuria. Denies syncope. Denies fevers. Notes multiple episodes of nonbloody nonbilious emesis. States she was seen earlier today for similar complaints and discharged home. She states that she was discharged with Phenergan but not been able to fill the medication due to insurance issues. Denies cough. States the pain seems to involve her back at this time as well. States the pain is aching in nature. Denies any alleviating factors. No other complaints. Review of Systems: Review of Systems: Constitutional: Denies fever or chills. [] Eyes: Denies change in visual acuity. [] HENT: Denies nasal congestion or sore throat. [] Respiratory: Denies cough or shortness of breath. [] Cardiovascular: Denies chest pain or edema. [] GI: Positive for abdominal pain and vomiting : Denies dysuria. [] Musculoskeletal: Denies back pain or joint pain. [] Integument: Denies rash. [] Neurologic: Denies headache, focal weakness or sensory changes. [] Endocrine: Denies polyuria or polydipsia. [] Lymphatic: Denies swollen glands. [] Psychiatric: Denies depression or anxiety. [] Heart Score: Risk Factors: Risk Factors: DM, Current or recent (<one month) smoker, HTN, HLP, family history of CAD, obesity. Risk Scores: Score 0 - 3: 2.5% MACE over next 6 weeks - Discharge Home Score 4 - 6: 20.3% MACE over next 6 weeks - Admit for Clinical Observation Score 7 - 10: 72.7% MACE over next 6 weeks - Early Invasive Strategies Allergies: Allergies: Allergies Coded Allergies Type Severity Reaction Last Updated Verified ondansetron Allergy Severe edema 07/12/19 Yes ketorolac Allergy Intermediate hives 07/12/19 Yes morphine Allergy Intermediate hives 07/12/19 Yes Physical Exam: PE: Constitutional: Well developed, well nourished, no acute distress, non-toxic appearance. [] HENT: Normocephalic, atraumatic, bilateral external ears normal, oropharynx moist, no oral exudates, nose normal. [] Eyes: PERRLA, EOMI, conjunctiva normal, no discharge. [] Neck: Normal range of motion, no tenderness, supple, no stridor. [] Cardiovascular:Heart rate regular rhythm, no murmur [] left upper extremity fistula palpable thrill audible bruit. Right anterior port site noted Lungs & Thorax: Bilateral breath sounds clear to auscultation [] Abdomen: Mild diffuse tenderness to palpation. No involuntary guarding or rigidity noted. No acute peritonitis. Skin: Warm, dry, no erythema, no rash. [] Back: No tenderness, no CVA tenderness. [] Extremities: No tenderness, no cyanosis, no clubbing, ROM intact, no edema. [] Neurologic: Alert and oriented X 3, normal motor function, normal sensory function, no focal deficits noted. [] Psychologic: Affect normal, judgement normal, mood normal. [] Current Patient Data: Labs: Laboratory Tests Test 05/08/20 21:39 05/08/20 22:10 05/08/20 22:18 Urine Collection Type Unknown Urine Color Yellow Urine Clarity Clear Urine pH 6.0 Urine Specific [place] 1.010 Urine Protein >=300 mg/dL Urine Glucose (UA) Negative mg/dL Urine Ketones (Stick) Negative mg/dL Urine Blood Negative Urine Nitrite Negative Urine Bilirubin Negative Urine Urobilinogen Dipstick 0.2 mg/dL Urine Leukocyte Esterase Trace Urine RBC Occ /HPF Urine WBC 1-4 /HPF Urine Squamous Epithelial Cells Few /LPF Urine Bacteria Moderate /HPF Urine Hyaline Casts Few /HPF Urine Mucus Slight /LPF White Blood Count 8.7 x10^3/uL Red Blood Count 4.02 x10^6/uL Hemoglobin 12.4 g/dL Hematocrit 36.9 % Mean Corpuscular Volume 92 fL Mean Corpuscular Hemoglobin 31 pg Mean Corpuscular Hemoglobin Concent 34 g/dL Red Cell Distribution Width 15.9 % Platelet Count 241 x10^3/uL Neutrophils (%) (Auto) 63 % Lymphocytes (%) (Auto) 28 % Monocytes (%) (Auto) 7 % Eosinophils (%) (Auto) 1 % Basophils (%) (Auto) 1 % Neutrophils # (Auto) 5.5 x10^3/uL Lymphocytes # (Auto) 2.5 x10^3/uL Monocytes # (Auto) 0.6 x10^3/uL Eosinophils # (Auto) 0.1 x10^3/uL Basophils # (Auto) 0.1 x10^3/uL Sodium Level 138 mmol/L Potassium Level 3.6 mmol/L Chloride Level 99 mmol/L Carbon Dioxide Level 31 mmol/L Anion Gap 8 Blood Urea Nitrogen 13 mg/dL Creatinine 3.5 mg/dL Estimated GFR (Cockcroft-Gault) 18.3 BUN/Creatinine Ratio 4 Glucose Level 139 mg/dL Calcium Level 9.7 mg/dL Magnesium Level 2.3 mg/dL Total Bilirubin 0.4 mg/dL Aspartate Amino Transf (AST/SGOT) 21 U/L Alanine Aminotransferase (ALT/SGPT) 21 U/L Alkaline Phosphatase 107 U/L Troponin I Quantitative < 0.017 ng/mL Total Protein 9.1 g/dL Albumin 4.4 g/dL Albumin/Globulin Ratio 0.9 Lipase 322 U/L Bedside Urine HCG, Qualitative Hcg negative Current Medications Medications (Trade) Dose Ordered Sig/Brown Route PRN Reason Start Time Stop Time Status Last Admin Dose Admin Fentanyl Citrate (Fentanyl 2ml Vial) 50 mcg 1X ONCE IVP 05/08/20 22:30 05/08/20 22:31 DC 05/08/20 22:24 Metoclopramide HCl (Reglan) 10 mg 1X ONCE PO 05/08/20 22:30 05/08/20 22:27 DC Olanzapine (ZyPREXA IM) 10 mg 1X ONCE IM 05/08/20 23:00 05/08/20 23:01 DC 05/08/20 22:45 Diphenhydramine HCl (Benadryl) 50 mg 1X ONCE IVP 05/08/20 23:30 05/08/20 23:31 DC Hydromorphone HCl (Dilaudid) 1 mg 1X ONCE IV 05/08/20 23:30 05/08/20 23:31 DC 05/08/20 23:17 Vital Signs: Vital Signs Date Time Temp Pulse Resp B/P (MAP) Pulse Ox O2 Delivery O2 Flow Rate FiO2 05/08/20 23:17 18 100 Room Air 05/08/20 22:29 77 16 223/128 (159) 97 Room Air 05/08/20 22:24 100 Room Air 05/08/20 21:59 94 16 128/92 (104) 97 Room Air 05/08/20 21:56 98.9 94 24 128/92 (104) 97 Room Air 98.9 EKG: EKG: [] EKG consistent with normal sinus rhythm. Ventricular rate of 91 bpm. [place] normal. Intervals normal. Some artifact present in the inferior leads. No acute ischemic changes appreciated. Radiology/Procedures: Radiology/Procedures: [][facility] [address] [place] [address] IMAGING REPORT Signed PATIENT: JOSIAH CALZADA NACCOUNT: [id number] : 1985 LOCATION: ER AGE: 34 SEX: F EXAM STATUS: REG ER ORD. PHYSICIAN: MANJEET LONG DO REASON: abd pain, VOMITING PROCEDURE: CT ABDOMEN PELVIS WO CONTRAST PQRS Compliance Statement: One or more of the following individualized dose reduction techniques were utilized for this examination: 1. Automated exposure control 2. Adjustment of the mA and/or kV according to patient size 3. Use of iterative reconstruction technique CT ABDOMEN PELVIS WO CONTRAST Clinical Indication: Reason: abd pain, VOMITING Comparison: CT abdomen and pelvis without contrast, March 10, 2020. Technique: Helical CT imaging of the abdomen and pelvis is performed without IV or oral contrast. Findings: Tip of catheter is seen in the right atrium. The cardiac size is normal. Lung bases essentially clear. Cholecystectomy. The liver, spleen, pancreas, and abdominal aorta caliber are normal. 1.7 cm left adrenal adenoma is stable. There may also be tiny right adrenal adenoma. No follow-up is suggested. There is no hydronephrosis. There is no obvious abnormality of the stomach. No dilated small bowel is seen. There is no colon wall thickening. Scattered stool in the colon. The appendix is normal. No abdominal adenopathy or free fluid. Uterus is retroverted. No obvious pelvic free fluid. There is moderate wall thickening of the urinary bladder. There is a small amount of air in the urinary bladder. There is a 1 cm right gluteal subcutaneous fat induration. There is no acute bone abnormality. IMPRESSION: There is moderate wall thickening of the urinary bladder suggesting nonspecific cystitis or chronic bladder outlet obstruction. Small amount of air in the urinary bladder, correlate to whether there has been recent catheterization. Electronically signed by: Ky Quinonez MD (05/09/2020 12:07 AM) [facility] DICTATED and SIGNED BY: KY QUINONEZ MD DATE: 05/09/20 0007 Course & Med Decision Making: Course & Med Decision Making Pertinent Labs and Imaging studies reviewed. (See chart for details) [] Patient is a 34-year-old female who presents with chief complaint of nausea and vomiting. Per chart review she was seen earlier in our facility for similar complaint treated symptomatically discharged home. States she was unable to fill her Phenergan at home due to insurance reasons. Initial vital signs unremarkable. Exam grossly unremarkable. Abdomen overall benign. Patient's repeat visit CT imaging was obtained without acute abnormality. Labs were obtained and show no significant electrolyte disturbance. She does have elevated creatinine consistent with her ESRD. She does see dialysis treatments on Tuesdays, and Saturdays. She did receive her full treatment yesterday. Repeat examination patient has ambulated to the bathroom without difficulty. She has tolerated p.o. I do feel overall she is appropriate for symptomatic treatment at home. She says that she has an allergy to Zofran. She also states that oral Reglan does not help. She has not been able to fill Phenergan. She will be discharged home with a prescription of Diclegis. She was encouraged to report back to the emergency department in 12 to 24 hours should her symptoms not improve or worsen. She is agreeable to further symptomatic care at home. Stable for discharge. Rebecca Disclaimer: Rebecca Disclaimer: This electronic medical record was generated, in whole or in part, using a voice recognition dictation system. Departure Departure Impression: Primary Impression: End stage renal disease Additional Impression: Vomiting Qualified Codes: R11.2 - Nausea with vomiting, unspecified Disposition: 01 HOME, SELF-CARE Referrals: YASMANY CHISHOLM (PCP) Patient Instructions: Nausea and Vomiting Additional Instructions: Please return to the emergency department in 12 to 24 hours should her symptoms not improve or worsen. Please follow-up with your primary care physician in the next 2 to 3 days. Scripts Doxylamine/Pyridoxine Hcl (TONY RODRIGUEZ 10-10 MG TABLET) 1 Each Tablet. 2 TAB PO QHS for 7 Days, #14 TAB 0 Refills Prov: MANJEET LONG DO 05/09/20 Justicifation of Admission Dx: Justifications for Admission: Justification of Admission Dx: N/A MANJEET LONG DO May 08, 2020 22:03
[2020-05-08 22:21] LABS: BASO # 0.1 x10^3/uL (0.0-0.2); BASO % 1 % (0-3); EOS # 0.1 x10^3/uL (0.0-0.7); EOS % 1 % (0-3); HEMATOCRIT 36.9 % (36.0-47.0); HEMOGLOBIN 12.4 g/dL (12.0-15.5); LYMPH # 2.5 x10^3/uL (1.0-4.8); LYMPH % 28 % (24-48); MEAN CORPUSCULAR HEMOGLOBIN 31 pg (25-35); MEAN CORPUSCULAR HGB CONC 34 g/dL (31-37); MEAN CORPUSCULAR VOLUME 92 fL (79-100); MONO # 0.6 x10^3/uL (0.0-1.1); MONO % 7 % (0-9); NEUT # 5.5 x10^3/uL (1.8-7.7); NEUT % 63 % (31-73); PLATELET COUNT 241 x10^3/uL (140-400); RED BLOOD COUNT 4.02 x10^6/uL (3.50-5.40); RED CELL DISTRIBUTION WIDTH 15.9 % (11.5-14.5); WHITE BLOOD COUNT 8.7 x10^3/uL (4.0-11.0)
[2020-05-08 22:22] LABS: BILIRUBIN,URINE NEGATIVE (NEG); CLARITY,URINE CLEAR; COLOR,URINE YELLOW; NITRITE,URINE NEGATIVE (NEG); PROTEIN,URINE >=300 mg/dL (NEG-TRACE); UROBILINOGEN,URINE 0.2 mg/dL (0.2 mg/dL)
[2020-05-08 22:27] LABS: BACTERIA,URINE MODERATE /HPF (0-FEW); HYALINE CASTS, URINE FEW /HPF; RBC,URINE OCC /HPF (0-2); SQUAMOUS EPITHELIAL CELL,UR FEW /LPF
[2020-05-08 22:30] LABS: CALCIUM 9.7 mg/dL (8.5-10.1); CREATININE 3.5 mg/dL (0.6-1.0); GFR 18.3; POTASSIUM 3.6 mmol/L (3.5-5.1)
[2020-05-08] MEDS ORDERED: METOCLOPRAMIDE 10 MG TABLET. PO ONE (22:30)
[2020-05-08] MEDS ORDERED: fentaNYL PF VIAL 100 MCG/2 ML VIAL IVP ONE (22:30)
[2020-05-08 22:36] LABS: ALBUMIN 4.4 g/dL (3.4-5.0); ALBUMIN/GLOBULIN RATIO 0.9 (1.0-1.7); TOTAL BILIRUBIN 0.4 mg/dL (0.2-1.0); TOTAL PROTEIN 9.1 g/dL (6.4-8.2)
[2020-05-08] MEDS ORDERED: OLANZapine IM 10 MG VIAL. IM ONE (23:00)
[2020-05-08] MEDS ORDERED: HYDROmorphone 2 MG/ML VIAL IV ONE (23:30)
[2020-05-08] MEDS ORDERED: diphenhydrAMINE 50 MG/ML VIAL IVP ONE (23:30)
--- NOTE | 2020-05-09 00:10 | RAD ---
PQRS Compliance Statement: One or more of the following individualized dose reduction techniques were utilized for this examination: 1. Automated exposure control 2. Adjustment of the mA and/or kV according to patient size 3. Use of iterative reconstruction technique CT ABDOMEN PELVIS WO CONTRAST Clinical Indication: Reason: abd pain, VOMITING Comparison: CT abdomen and pelvis without contrast, March 10, 2020. Technique: Helical CT imaging of the abdomen and pelvis is performed without IV or oral contrast. Findings: Tip of catheter is seen in the right atrium. The cardiac size is normal. Lung bases essentially clear. Cholecystectomy. The liver, spleen, pancreas, and abdominal aorta caliber are normal. 1.7 cm left adrenal adenoma is stable. There may also be tiny right adrenal adenoma. No follow-up is suggested. There is no hydronephrosis. There is no obvious abnormality of the stomach. No dilated small bowel is seen. There is no colon wall thickening. Scattered stool in the colon. The appendix is normal. No abdominal adenopathy or free fluid. Uterus is retroverted. No obvious pelvic free fluid. There is moderate wall thickening of the urinary bladder. There is a small amount of air in the urinary bladder. There is a 1 cm right gluteal subcutaneous fat induration. There is no acute bone abnormality. IMPRESSION: There is moderate wall thickening of the urinary bladder suggesting nonspecific cystitis or chronic bladder outlet obstruction. Small amount of air in the urinary bladder, correlate to whether there has been recent catheterization. Electronically signed by: Ky Quinonez MD (05/09/2020 12:07 AM) [facility]
[2020-05-09 00:45] VITALS: BP 147/98
[2020-05-09] MEDS ORDERED: DOXY1TAB3 PO (00:47)
--- NOTE | 2020-05-09 07:29 | EKG ---
[facility] [address] [place] [address] Test Date: 2020-05-08 Test Time: 15:32:50 Pat Name: JOSIAH CALZADA Department: Room: Gender: F [employer] Ad[employer]er: : 1985 Requested By: MANJEET LONG Order Number: [id number] Reading MD: Measurements Intervals [place] Rate: 84 P: 76 [place]: 158 QRS: 66 QRSD: 86 T: 80 QT: 380 QTc: 452 Interpretive Statements SINUS RHYTHM OTHERWISE NORMAL ECG RI6.02 No previous ECG available for comparison
== END 2020-05-09 01:09 | disposition home or self-care (01) ==
LOC: ER 21:38
DX: I12.0 Hypertensive chronic kidney disease with stage 5 chronic kidney disease or end stage renal disease (principal); E10.22 Type 1 diabetes mellitus with diabetic chronic kidney disease; N18.6 End stage renal disease; Z99.2 Dependence on renal dialysis; E10.43 Type 1 diabetes mellitus with diabetic autonomic (poly)neuropathy; R11.2 Nausea with vomiting, unspecified; K31.84 Gastroparesis; Z90.49 Acquired absence of other specified parts of digestive tract; Z98.51 Tubal ligation status; F17.200 Nicotine dependence, unspecified, uncomplicated; Z88.5 Allergy status to narcotic agent; Z88.6 Allergy status to analgesic agent
CPT/HCPCS: 36415; 74176; 80053; 81001; 81025; 83690; 83735; 84484; 85025; 87086; 93005; 96372; 96374; 96375; 99285; J1170; J3010; J3490; J1200

== ENCOUNTER 2020-05-15 19:32 | Inpatient (IN) | payer OTHER ==
[~2020-05-15] VITALS: Ht 167.6 cm; Wt 55.7 kg
[~2020-05-15 19:32] MED LIST changes: +DOXY1TAB3 PO
[2020-05-15] MEDS ORDERED: fentaNYL PF VIAL 100 MCG/2 ML VIAL IVP ONE ×2 (19:45→20:45)
[2020-05-15] MEDS ORDERED: PROCHLORPERAZINE 10 MG/2 ML VIAL. IV ONE (19:45)
--- NOTE | 2020-05-15 19:56 | PHYS DOC ---
Past Medical History Past Medical History: Diabetes-Type I, Hypertension, Kidney Infection, Pa ncreatitis, Renal Failure, Other Additional Past Medical Histor: GASTROPERESIS,DIALYSIS,SM BOWEL OBSTRUCTION ([facility],[employer]) Past Surgical History: Cholecystectomy, , Tubal ligation, Other Additional Past Surgical Histo: FISTULA LEFT ARM, SHUNT RIGHT CHEST ([facility],[employer]) Smoking Status: Current Every Day Smoker Alcohol Use: Occasionally Drug Use: None ([facility],[employer]) General Adult EDM: Chief Complaint: CHEST PAIN HPI: HPI: Patient is a 34 year old female who presents with patient was here on May 08 and diagnosed with a urinary tract infection. She states she is not currently taking any antibiotics. She is here today complaining of left lower sharp abdominal pain that started tonight. She states the pain is making her nauseated. She states she does not actually feel nauseated. She did vomit once in the ED and it contained food and will clear liquid. Patient states that she had her dialysis shunt out of her right chest and it was done at . She states that she has pain in that site especially with movement. She states that is not as bad as this left lower pain. Patient is moaning in pain holding her abdomen and crying. Patient denies shortness of breath, diarrhea, constipation, fever, cough, dizziness, headache, syncope, focal weakness. Patient states she did get dialysis today. She states she goes every Tuesday. Patient has a history of GILDARDO, PID, UTI, ESRD, low back pain, small bowel obstruction, diabetes, gastroparesis, , tubal ligation, smoker, hypertension, cholecystectomy, fistula left arm. ([facility],[employer]) Review of Systems: Review of Systems: Constitutional: Denies fever or chills. [] Eyes: Denies change in visual acuity. [] HENT: Denies nasal congestion or sore throat. [] Respiratory: Denies cough or shortness of breath. [] Cardiovascular: Positive for right chest pain or denies edema. [] GI: Positive for abdominal pain, nausea, vomiting, denies bloody stools or diarrhea. [] : Denies dysuria. [] Musculoskeletal: Denies back pain or joint pain. [] Integument: Denies rash. Steri-Strips over where the right chest port was taken out. [] Neurologic: Denies headache, focal weakness or sensory changes. [] Endocrine: Denies polyuria or polydipsia. [] Lymphatic: Denies swollen glands. [] Psychiatric: Denies depression or anxiety. [] (CICI SARMIENTO APRN) Heart Score: HEART Score for Chest Pain: HEART Score for Chest Pain Response (Comments) Value History Slighlty/Non-Suspicious 0 ECG Normal 0 Age < 45 0 Risk Factors 1 or 2 Risk Factors 1 Troponin < Normal Limit 0 Total 1 Risk Factors: Risk Factors: DM, Current or recent (<one month) smoker, HTN, HLP, family history of CAD, obesity. Risk Scores: Score 0 - 3: 2.5% MACE over next 6 weeks - Discharge Home Score 4 - 6: 20.3% MACE over next 6 weeks - Admit for Clinical Observation Score 7 - 10: 72.7% MACE over next 6 weeks - Early Invasive Strategies (CICI SARMIENTO APRN) Allergies: Allergies: Allergies Coded Allergies Type Severity Reaction Last Updated Verified ondansetron Allergy Severe edema 07/12/19 Yes ketorolac Allergy Intermediate hives 07/12/19 Yes morphine Allergy Intermediate hives 07/12/19 Yes ([employer]) Physical Exam: PE: Constitutional: Well developed, well nourished, no acute distress, non-toxic appearance. [] HENT: Normocephalic, atraumatic, bilateral external ears normal, oropharynx moist, no oral exudates, nose normal. [] Eyes: PERRLA, EOMI, conjunctiva normal, no discharge. [] Neck: Normal range of motion, no tenderness, supple, no stridor. [] Cardiovascular:Heart rate regular rhythm, no murmur. Pain with palpation over the right chest. [] Lungs & Thorax: Bilateral breath sounds clear to auscultation [] Abdomen: Bowel sounds normal, soft, left lower tenderness, no masses, no pulsatile masses. [] Skin: Warm, dry, no erythema, no rash. Steri-Strips over the right chest or port was removed. [] Back: No tenderness, no CVA tenderness. [] Extremities: No tenderness, no cyanosis, no clubbing, ROM intact, no edema. [] Neurologic: Alert and oriented X 3, normal motor function, normal sensory function, no focal deficits noted. [] Psychologic: Affect normal, judgement normal, mood normal. [] (CICI SARMIENTO APRN) EKG: EK and read by Dr. Velasquez as sinus rhythm and no STEMI. [] (CICI SARMIENTO APRN) Radiology/Procedures: Radiology/Procedures: [] Impression: [place] [address] IMAGING REPORT Signed PATIENT: JOSIAH CALZADA NACCOUNT: [id number] : 1985 LOCATION: ER AGE: 34 SEX: F EXAM STATUS: REG ER ORD. PHYSICIAN: CICI SARMIENTO APRN REASON: pain where dialysis port taken out PROCEDURE: PORTABLE CHEST 1V PORTABLE CHEST 1V History: Reason: pain where dialysis port taken out / Spl. Instructions: / History: Comparison: March 10, 2020 Findings: No consolidation or pleural effusion. Normal heart size. No pneumothorax. Interval removal of right IJ central line. Postop changes left upper extremity. Impression: 1. No acute cardiopulmonary process. Electronically signed by: Ottoniel Benton DO (05/15/2020 8:28 PM) [facility] DICTATED and SIGNED BY: OTTONIEL BENTON DO DATE: 05/15/202027 [address] [address] IMAGING REPORT Signed PATIENT: JOSIAH CALZADA NACCOUNT: [id number] : 1985 LOCATION: ER AGE: 34 SEX: F EXAM STATUS: REG ER ORD. PHYSICIAN: CICI SARMIENTO APRN REASON: Abdominal pain 10 PROCEDURE: KUB KUB History: Reason: Abdominal pain 10 / Spl. Instructions: / History: Technique: Upright view of the abdomen. Comparison: CT May 08, 2020 Findings: Surgical clips right upper quadrant. Imaged only includes the upper abdomen. No evidence of dilated bowel within the imaged upper abdomen. No air-fluid levels. Imaged lung bases are unremarkable. Impression: 1. Upper abdominal bowel loops are nonobstructed. Electronically signed by: Ottoniel Benton DO (05/15/2020 11:04 PM) [facility] DICTATED and SIGNED BY: OTTONIEL BENTON DO DATE: 05/15/20 0902 (CICI SARMIENTO APRN) Radiology/Procedures: [facility] [address] [place] [address] IMAGING REPORT Signed PATIENT: JOSIAH CALZADA NACCOUNT: [id number] : 1985 LOCATION: ER AGE: 34 SEX: F EXAM STATUS: REG ER ORD. PHYSICIAN: CICI SARMIENTO APRN REASON: left lower pain, vomiting PROCEDURE: CT ABDOMEN PELVIS WO CONTRAST CT ABDOMEN PELVIS WO CONTRAST History: Reason: left lower pain, vomiting / Spl. Instructions: / History: Technique: Noncontrast examination of the abdomen and pelvis. Coronal and sagittal reconstructions were performed. Exposure: One or more of the following individualized dose reduction techniques were utilized for this examination: 1. Automated exposure control 2. Adjustment of the mA and/or kV according to patient size 3. Use of iterative reconstruction technique. Comparison: May 08, 2020 Findings: Motion degraded examination. Lower chest: Right middle lobe linear atelectasis. No consolidation or pleural effusion. Abdomen and pelvis: The liver, spleen, and pancreas are unremarkable. Prior cholecystectomy. Left adrenal adenoma, unchanged. Unremarkable noncontrast appearance of the kidneys. No hydronephrosis. Decompressed urinary bladder. No pneumoperitoneum. Normal appendix. No evidence of bowel obstruction. No pathologic lymphadenopathy. No definite ascites. Prior hysterectomy. Bones: No pathologic osseous lesions. Impression: 1. Motion degraded examination. 2. No definite acute abdominal or pelvic pathology. If persistent clinical concern, repeat imaging when the patient's condition allows may be of benefit. Electronically signed by: Ottoniel Benton DO (05/15/2020 11:37 PM) [facility] DICTATED and SIGNED BY: OTTONIEL BENTON DO DATE: 05/15/20 5564 (SOILA VELASQUEZ MD) Course & Med Decision Making: Course & Med Decision Making Pertinent Labs and Imaging studies reviewed. (See chart for details) See HPI. Abdomen soft but tender in the left lower abdomen. Speaks in full clear sentences. Alert and oriented x4. Skin pink warm and dry. No extremity edema. Patient's last CT was on May 08 and showed IMPRESSION: There is moderate wall thickening of the urinary bladder suggesting nonspecific cystitis or chronic bladder outlet obstruction. Small amount of air in the urinary bladder, correlate to whether there has been recent catheterization. Urinalysis culture from May 08 showed no growth. Patient is given Compazine and fentanyl in the ED. Patient states that the nausea went away briefly but is back. Patient is spitting constantly and rockin g back and forth in pain. She states that her pain is still there. Patient is given more fentanyl, Reglan 5 mg. Patient continues to vomit after this is given. Patient is then given Benadryl 50 mg IV. Patient would not lay flat for the supine of the abdominal x-ray. Hopefully the Benadryl will make her sleepy enough that the CT can be done. The patient has had a bout of diar ofelia in the room. The patient told the intraoperative neuro tech that she cannot lay flat for the CT. Patient was not holding her arm straight for the nurse to flush the Benadryl in the IV appropriately. Patient is also given 500 mL of normal saline. I have talked to Dr. David for admission. I have also talked to Dr. Velasquez about this patient. [] (CICI SARMIENTO APRN) Course & Med Decision Making I have reviewed the PA/KEY CARRIER's note and Plan of Care. I was available for consultation as needed during the patient's visit in the emergency department. I agree with the clinical impression, plans and disposition. (SOILA VELASQUEZ MD) Rebecca Disclaimer: Rebecca Disclaimer: This electronic medical record was generated, in whole or in part, using a voice recognition dictation system. (CICI SARMIENTO APRN) Departure Departure Impression: Primary Impression: Intractable vomiting Qualified Codes: R11.2 - Nausea with vomiting, unspecified Additional Impression: Intractable abdominal pain Disposition: ADMITTED INPATIENT Admitting Physician: KIRBY (CICI SARMIENTO APRN) Condition: STABLE Referrals: YASMANY CHISHOLM (PCP) Justicifation of Admission Dx: Justifications for Admission: Justification of Admission Dx: Yes Comments: INTRACTABLE VOMITING (CICI SARMIENTO APRN) Justification of Admission Dx: N/A (SOILA VELASQUEZ MD) CICI SARMIENTO APRN May 15, 2020 19:56 SOILA VELASQUEZ MD May 16, 2020 00:14
[2020-05-15 20:23] LABS: BASO # 0.1 x10^3/uL (0.0-0.2); BASO % 1 % (0-3); EOS # 0.2 x10^3/uL (0.0-0.7); EOS % 2 % (0-3); HEMATOCRIT 35.5 % (36.0-47.0); HEMOGLOBIN 12.2 g/dL (12.0-15.5); LYMPH # 2.5 x10^3/uL (1.0-4.8); LYMPH % 24 % (24-48); MEAN CORPUSCULAR HEMOGLOBIN 31 pg (25-35); MEAN CORPUSCULAR HGB CONC 34 g/dL (31-37); MEAN CORPUSCULAR VOLUME 92 fL (79-100); MONO # 0.8 x10^3/uL (0.0-1.1); MONO % 7 % (0-9); NEUT # 7.2 x10^3/uL (1.8-7.7); NEUT % 67 % (31-73); PLATELET COUNT 269 x10^3/uL (140-400); RED BLOOD COUNT 3.86 x10^6/uL (3.50-5.40); RED CELL DISTRIBUTION WIDTH 16.3 % (11.5-14.5); WHITE BLOOD COUNT 10.8 x10^3/uL (4.0-11.0)
--- NOTE | 2020-05-15 20:31 | RAD ---
PORTABLE CHEST 1V History: Reason: pain where dialysis port taken out / Spl. Instructions: / History: Comparison: March 10, 2020 Findings: No consolidation or pleural effusion. Normal heart size. No pneumothorax. Interval removal of right IJ central line. Postop changes left upper extremity. Impression: 1. No acute cardiopulmonary process. Electronically signed by: Ottoniel Benton DO (05/15/2020 8:28 PM) [facility]
[2020-05-15 20:35] LABS: PROTHROMBIN TIME PATIENT 13.7 SEC (11.7-14.0)
[2020-05-15 20:37] LABS: CREATININE 4.4 mg/dL (0.6-1.0); GFR 14.1; POTASSIUM 3.5 mmol/L (3.5-5.1)
[2020-05-15 20:45] LABS: ALBUMIN 4.4 g/dL (3.4-5.0); ALBUMIN/GLOBULIN RATIO 1.1 (1.0-1.7); TOTAL BILIRUBIN 0.4 mg/dL (0.2-1.0); TOTAL PROTEIN 8.3 g/dL (6.4-8.2)
[2020-05-15] MEDS ORDERED: METOCLOPRAMIDE HCL 10 MG/2 ML VIAL. IVP ONE (20:45)
[2020-05-15] MEDS ORDERED: diphenhydrAMINE 50 MG/ML VIAL IVP ONE (22:15)
[2020-05-15] MEDS ORDERED: IV NORMAL SALINE 500ML BAG 500 ML IV ONE (22:15)
--- NOTE | 2020-05-15 23:07 | RAD ---
KUB History: Reason: Abdominal pain . Instructions: / History: Technique: Upright view of the abdomen. Comparison: CT May 08, 2020 Findings: Surgical clips right upper quadrant. Imaged only includes the upper abdomen. No evidence of dilated bowel within the imaged upper abdomen. No air-fluid levels. Imaged lung bases are unremarkable. Impression: 1. Upper abdominal bowel loops are nonobstructed. Electronically signed by: Ottoniel Benton DO (05/15/2020 11:04 PM) [facility]
--- NOTE | 2020-05-15 23:39 | RAD ---
CT ABDOMEN PELVIS WO CONTRAST History: Reason: left lower pain, vomiting / Spl. Instructions: / History: Technique: Noncontrast examination of the abdomen and pelvis. Coronal and sagittal reconstructions were performed. Exposure: One or more of the following individualized dose reduction techniques were utilized for this examination: 1. Automated exposure control 2. Adjustment of the mA and/or kV according to patient size 3. Use of iterative reconstruction technique. Comparison: May 08, 2020 Findings: Motion degraded examination. Lower chest: Right middle lobe linear atelectasis. No consolidation or pleural effusion. Abdomen and pelvis: The liver, spleen, and pancreas are unremarkable. Prior cholecystectomy. Left adrenal adenoma, unchanged. Unremarkable noncontrast appearance of the kidneys. No hydronephrosis. Decompressed urinary bladder. No pneumoperitoneum. Normal appendix. No evidence of bowel obstruction. No pathologic lymphadenopathy. No definite ascites. Prior hysterectomy. Bones: No pathologic osseous lesions. Impression: 1. Motion degraded examination. 2. No definite acute abdominal or pelvic pathology. If persistent clinical concern, repeat imaging when the patient's condition allows may be of benefit. Electronically signed by: Ottoniel Benton DO (05/15/2020 11:37 PM) [facility]
[2020-05-15] MEDS ORDERED: HALOPERIDOL LACTATE 5 MG/ML VIAL. IM ONE (23:55)
[2020-05-16] VITALS (11 sets, daily range): BP systolic 159–247; BP diastolic 91–143
[2020-05-16] MEDS ORDERED: PROMETHAZINE 12.5 MG TABLET. PO ONE
--- NOTE | 2020-05-16 07:34 | NUR ---
Notified 's and Dr. Solano's answering service about consults.
--- NOTE | 2020-05-16 07:45 | NUR ---
Printer unable to print telemetry strips at this time. Strip interpreted on the monitor as sinus tachycardia. Will try at a later time to print strip.
--- NOTE | 2020-05-16 07:49 | PDOC1 ---
History and Physical Date of Admission Date of Admission DATE: 05/16/20 TIME: 07:48 Identification/Chief Complaint Chief Complaint Abdominal pain Source Source: Patient History of Present Illness History of Present Illness Patient is a 34-year-old female with past medical history and surgical disease on hemodialysis Tuesday//Tuesday, insulin-dependent diabetes, gastroparesis, who presents with complaint of abdominal pain. Patient reports left lower quadrant abdominal pain that is sharp and cramping in nature, 10/10 at worst. She admits to some associated vomiting, and is unsure of her last bowel movement. Further history is unable to obtain as patient is somewhat of a poor historian. Upon admission patient was noted to have systolic blood pressure >200 mmHg. She was started on nicardipine drip and transferred to the ICU for monitoring. Temp 98.2, pulse 90, BP 227/110 WBC 10.8, BUN 18, Cr 4.4 UA (05/08/20): Trace leukocyte esterase, negative nitrites, WBC 14, few squamous cells Past Medical History Cardiovascular: HTN, Hyperlipidemia GI: GERD, Other Psych: Anxiety, Depression Renal/: Chronic renal failure Endocrine: Diabetes Past Surgical History Past Surgical History: Cholecystectomy, Other Family History Family History: Hypertension Social History Smoke: No ALCOHOL: none Drugs: Marijuana Current Problem List Problem List Problems Medical Problems: (1) Intractable abdominal pain Status: Acute (2) Intractable vomiting Status: Acute Current Medications Current Medications Current Medications Fentanyl Citrate (Fentanyl 2ml Vial) 50 mcg 1X ONCE IVP Last administered on 05/15/20at 20:03; Start 05/15/20 at 19:45; Stop 05/15/20 at 19:52; Status DC Prochlorperazine Edisylate (Compazine) 10 mg 1X ONCE IV Last administered on 05/15/20at 20:02; Start 05/15/20 at 19:45; Stop 05/15/20 at 19:52; Status DC Fentanyl Citrate (Fentanyl 2ml Vial) 50 mcg 1X ONCE IVP Last administered on 05/15/20at 21:04; Start 05/15/20 at 20:45; Stop 05/15/20 at 20:49; Status DC Metoclopramide HCl (Reglan Vial) 5 mg 1X ONCE IVP Last administered on 05/15/20at 21:04; Start 05/15/20 at 20:45; Stop 05/15/20 at 20:49; Status DC Sodium Chloride 500 ml @ 500 mls/hr 1X ONCE IV ; Start 05/15/20 at 22:15; Stop 05/15/20 at 23:14; Status DC Diphenhydramine HCl (Benadryl) 50 mg 1X ONCE IVP Last administered on 05/15/20at 22:14; Start 05/15/20 at 22:15; Stop 05/15/20 at 22:16; Status DC Haloperidol Lactate (Haldol Inj) 5 mg 1X ONCE IM Last administered on 05/16/20at 00:18; Start 05/15/20 at 23:55; Stop 05/15/20 at 23:56; Status DC Promethazine HCl (Phenergan) 12.5 mg 1X ONCE PO Last administered on 05/16/20at 00:18; Start 05/16/20 at 00:00; Stop 05/16/20 at 00:01; Status DC Active Scripts Active Diclegis Dr 10-10 Mg Tablet (Doxylamine/Pyridoxine Hcl) 1 Each Tablet.dr 2 Tab PO QHS 7 Days Promethazine Hcl 25 Mg Supp.rect 25 Mg RC Q6H PRN Anti-Itch (Hydrocortisone Acetate) 28 Gm Oint...g. 1 [place] TP PRN Q2HRS PRN 10 Days Transderm-Scop (Scopolamine) 1 Each Patch.td72 1 Patch TD Q3DAYS@0700 10 Days Bisacodyl 5 Mg Tablet.dr 5 Mg PO PRN DAILY PRN 30 Days Acetaminophen Supp (Acetaminophen) 650 Mg Supp.rect 650 Mg [place] PRN Q4HRS PRN 30 Days Proair Hfa (Albuterol Sulfate) 8.5 Gm Hfa.aer.ad 2.5 Mg NEB PRN Q4HRS PRN 30 Days Reglan (Metoclopramide Hcl) 10 Mg Tablet 1 Tab PO QID PRN 5 Days before food and bedtime Lidocaine PATCH (Lidocaine) 1 Each Adh..patch 1 Patch TD DAILY 30 Days Reported Amlodipine Besylate 10 Mg Tablet 10 Mg PO DAILY Hydralazine Hcl 50 Mg Tablet 1 Tab PO TID Carvedilol 25 Mg Tablet 25 Mg PO BIDWMEALS Promethazine Hcl 25 Mg Tablet 1 Tab PO PRN Q6HRS Miralax (Polyethylene Glycol 3350) 17 Gm Powd.pack 1 Packet PO BID Novolog (Insulin Aspart) 100 Unit/1 Ml Cartridge 4 Unit SQ TID Pantoprazole Sodium (Pantoprazole Sodium) 40 Mg Tablet. 1 Tab PO DAILY Allergies Allergies: Coded Allergies: ondansetron (Verified Allergy, Severe, edema, 07/12/19) ketorolac (Verified Allergy, Intermediate, hives, 07/12/19) morphine (Verified Allergy, Intermediate, hives, 05/16/20) hydromorphone ok ROS Review of System GENERAL: No history of weight change, weakness or fevers. SKIN: No bruising, hair changes or rashes. EYES: No blurred, double or loss of vision. NOSE AND THROAT: No history of nosebleeds, hoarseness or sore throat. HEART: Denies chest pain, denies palpitations. LUNGS: Denies cough, hemoptysis, wheezing or shortness of breath. GASTROINTESTINAL: Abdominal pain, nausea, vomiting. GENITOURINARY: Denies dysuria, frequency, urgency, hematuria. NEUROLOGIC: Denies history of numbness, tingling, tremor or weakness. PSYCHIATRIC: Denies anxiety, denies depression. ENDOCRINE: No history of heat or cold intolerance, polyuria or polydipsia. EXTREMITIES: Denies muscle weakness, joint pain, pain on walking or stiffness. Physical Exam Physical Exam General: Moderate distress, alert, Oriented X3 HEENT: PERRLA, EOMI Lungs: Clear to auscultation, Normal air movement Heart: RRR, no murmurs Cardiovascular: S1, S2 Abdomen: Left lower quadrant abdominal tenderness, abdomen is soft Extremities: No clubbing, No cyanosis Skin: No rashes, No significant lesion Neuro: Normal speech, Normal tone, Sensation intact Psych/Mental Status: Agitated L Vitals Vitals Vital Signs Date Time Temp Pulse Resp B/P (MAP) Pulse Ox O2 Delivery O2 Flow Rate FiO2 05/16/20 03:30 88 179/103 (128) 05/16/20 03:30 Room Air 05/15/20 23:43 16 100 05/15/20 19:32 98.2 98.2 Labs Labs Laboratory Tests Test 05/15/20 20:15 White Blood Count 10.8 x10^3/uL (4.0-11.0) Red Blood Count 3.86 x10^6/uL (3.50-5.40) Hemoglobin 12.2 g/dL (12.0-15.5) Hematocrit 35.5 % (36.0-47.0) Mean Corpuscular Volume 92 fL (79-100) Mean Corpuscular Hemoglobin 31 pg (25-35) Mean Corpuscular Hemoglobin Concent 34 g/dL (31-37) Red Cell Distribution Width 16.3 % (11.5-14.5) Platelet Count 269 x10^3/uL (140-400) Neutrophils (%) (Auto) 67 % (31-73) Lymphocytes (%) (Auto) 24 % (24-48) Monocytes (%) (Auto) 7 % (0-9) Eosinophils (%) (Auto) 2 % (0-3) Basophils (%) (Auto) 1 % (0-3) Neutrophils # (Auto) 7.2 x10^3/uL (1.8-7.7) Lymphocytes # (Auto) 2.5 x10^3/uL (1.0-4.8) Monocytes # (Auto) 0.8 x10^3/uL (0.0-1.1) Eosinophils # (Auto) 0.2 x10^3/uL (0.0-0.7) Basophils # (Auto) 0.1 x10^3/uL (0.0-0.2) Prothrombin Time 13.7 SEC (11.7-14.0) Prothromb Time International Ratio 1.1 (0.8-1.1) Sodium Level 138 mmol/L (136-145) Potassium Level 3.5 mmol/L (3.5-5.1) Chloride Level 98 mmol/L (98-107) Carbon Dioxide Level 31 mmol/L (21-32) Anion Gap 9 (6-14) Blood Urea Nitrogen 18 mg/dL (7-20) Creatinine 4.4 mg/dL (0.6-1.0) Estimated GFR (Cockcroft-Gault) 14.1 BUN/Creatinine Ratio 4 (6-20) Glucose Level 170 mg/dL (70-99) Calcium Level 10.0 mg/dL (8.5-10.1) Total Bilirubin 0.4 mg/dL (0.2-1.0) Aspartate Amino Transf (AST/SGOT) 15 U/L (15-37) Alanine Aminotransferase (ALT/SGPT) 13 U/L (14-59) Alkaline Phosphatase 97 U/L (46-116) Troponin I Quantitative < 0.017 ng/mL (0.000-0.055) Total Protein 8.3 g/dL (6.4-8.2) Albumin 4.4 g/dL (3.4-5.0) Albumin/Globulin Ratio 1.1 (1.0-1.7) Lipase 273 U/L (73-393) Laboratory Tests Test 05/15/20 20:15 White Blood Count 10.8 x10^3/uL (4.0-11.0) Red Blood Count 3.86 x10^6/uL (3.50-5.40) Hemoglobin 12.2 g/dL (12.0-15.5) Hematocrit 35.5 % (36.0-47.0) Mean Corpuscular Volume 92 fL (79-100) Mean Corpuscular Hemoglobin 31 pg (25-35) Mean Corpuscular Hemoglobin Concent 34 g/dL (31-37) Red Cell Distribution Width 16.3 % (11.5-14.5) Platelet Count 269 x10^3/uL (140-400) Neutrophils (%) (Auto) 67 % (31-73) Lymphocytes (%) (Auto) 24 % (24-48) Monocytes (%) (Auto) 7 % (0-9) Eosinophils (%) (Auto) 2 % (0-3) Basophils (%) (Auto) 1 % (0-3) Neutrophils # (Auto) 7.2 x10^3/uL (1.8-7.7) Lymphocytes # (Auto) 2.5 x10^3/uL (1.0-4.8) Monocytes # (Auto) 0.8 x10^3/uL (0.0-1.1) Eosinophils # (Auto) 0.2 x10^3/uL (0.0-0.7) Basophils # (Auto) 0.1 x10^3/uL (0.0-0.2) Prothrombin Time 13.7 SEC (11.7-14.0) Prothromb Time International Ratio 1.1 (0.8-1.1) Sodium Level 138 mmol/L (136-145) Potassium Level 3.5 mmol/L (3.5-5.1) Chloride Level 98 mmol/L (98-107) Carbon Dioxide Level 31 mmol/L (21-32) Anion Gap 9 (6-14) Blood Urea Nitrogen 18 mg/dL (7-20) Creatinine 4.4 mg/dL (0.6-1.0) Estimated GFR (Cockcroft-Gault) 14.1 BUN/Creatinine Ratio 4 (6-20) Glucose Level 170 mg/dL (70-99) Calcium Level 10.0 mg/dL (8.5-10.1) Total Bilirubin 0.4 mg/dL (0.2-1.0) Aspartate Amino Transf (AST/SGOT) 15 U/L (15-37) Alanine Aminotransferase (ALT/SGPT) 13 U/L (14-59) Alkaline Phosphatase 97 U/L (46-116) Troponin I Quantitative < 0.017 ng/mL (0.000-0.055) Total Protein 8.3 g/dL (6.4-8.2) Albumin 4.4 g/dL (3.4-5.0) Albumin/Globulin Ratio 1.1 (1.0-1.7) Lipase 273 U/L (73-393) Images Images KUB History: Reason: Abdominal pain 10 / Spl. Instructions: / History: Technique: Upright view of the abdomen. Comparison: CT May 08, 2020 Findings: Surgical clips right upper quadrant. Imaged only includes the upper abdomen. No evidence of dilated bowel within the imaged upper abdomen. No air-fluid levels. Imaged lung bases are unremarkable. Impression: 1. Upper abdominal bowel loops are nonobstructed. CT ABDOMEN PELVIS WO CONTRAST History: Reason: left lower pain, vomiting / Spl. Instructions: / History: Technique: Noncontrast examination of the abdomen and pelvis. Coronal and sagittal reconstructions were performed. Exposure: One or more of the following individualized dose reduction techniques were utilized for this examination: 1. Automated exposure control 2. Adjustment of the mA and/or kV according to patient size 3. Use of iterative reconstruction technique. Comparison: May 08, 2020 Findings: Motion degraded examination. Lower chest: Right middle lobe linear atelectasis. No consolidation or pleural effusion. Abdomen and pelvis: The liver, spleen, and pancreas are unremarkable. Prior cholecystectomy. Left adrenal adenoma, unchanged. Unremarkable noncontrast appearance of the kidneys. No hydronephrosis. Decompressed urinary bladder. No pneumoperitoneum. Normal appendix. No evidence of bowel obstruction. No pathologic lymphadenopathy. No definite ascites. Prior hysterectomy. Bones: No pathologic osseous lesions. Impression: 1. Motion degraded examination. 2. No definite acute abdominal or pelvic pathology. If persistent clinical concern, repeat imaging when the patient's condition allows may be of benefit. VTE Prophylaxis Ordered VTE Prophylaxis Devices: No VTE Pharmacological Prophylaxi: Yes Assessment/Plan Assessment/Plan Diabetic gastroparesis Cannabis hyperemesis End-stage renal disease on hemodialysis Intractable abdominal pain Intractable nausea/vomiting Hypertensive urgency Plan: Transfer the ICU, Nicardipine drip Reglan IV 4 times daily Dilaudid as needed pain Urine culture pending Urine drug tox pending Consults GI Consult Nephrology FEN - NPO, then advance diet as tolerated PPX - Heparin FULL CODE Dispo - inpatient for above Justifications for Admission Other Justification CELI HOUSE MD May 16, 2020 07:49
[2020-05-16] MEDS ORDERED: HYDROCORTISONE 1% TOPICAL OINTMENT 30GM TUBE. TP PRN (08:00)
[2020-05-16] MEDS ORDERED: BISACODYL 5 MG TABLET.DR. PO PRN (08:00)
[2020-05-16] MEDS ORDERED: ACETAMINOPHEN 650 MG SUPP.RECT. PR PRN (08:00)
[2020-05-16] MEDS ORDERED: ALBUTEROL SULFATE 2.5 MG/3 ML NEBU. NEB PRN (08:00)
[2020-05-16] MEDS ORDERED: PROMETHAZINE 25 MG SUPP.RECT. RC PRN (08:00)
[2020-05-16] MEDS ORDERED: DEXTROSE 50% 25 GM / 50ML DISP.SYRIN. IV PRN (08:15)
--- NOTE | 2020-05-16 08:22 | EKG ---
[facility] [address] [place] [address] Test Date: 2020-05-15 Test Time: 19:39:24 Pat Name: JOSIAH CALZADA Department: Room: Gender: F [employer]: : [id number] Requested By: CICI SARMIENTO Order Number: [id number] Reading MD: Measurements Intervals [place] Rate: 91 P: 73 [place]: 154 QRS: 66 QRSD: 88 T: 72 QT: 360 QTc: 444 Interpretive Statements SINUS RHYTHM RIGHT ATRIAL ENLARGEMENT POSSIBLY ABNORMAL ECG RI6.02 No previous ECG available for comparison
[2020-05-16] MEDS: CARVEDILOL 12.5 MG TABLET. PO SCH ×2 (08:30→17:06)
[2020-05-16] MEDS: INSULIN LISPRO 300 UNITS/3 ML VIAL. SQ SCH ×6 (08:30→17:00)
[2020-05-16] MEDS: fentaNYL PF VIAL 100 MCG/2 ML VIAL IVP PRN ×3 (08:32→13:27)
[2020-05-16] MEDS: POLYETHYLENE GLYCOL 3350 17 GM PACKET. PO SCH ×2 (08:34→21:00)
[2020-05-16] MEDS: PANTOPRAZOLE 40 MG TABLET.DR. PO SCH (08:34)
[2020-05-16] MEDS: amLODIPine BESYLATE 10 MG TABLET PO SCH (08:34)
--- NOTE | 2020-05-16 08:40 | PDOC2 ---
CONSULT Date of Consult Date of Consult DATE: 05/16/20 TIME: 08:38 Reason for Consult Reason for Consult: abd pain/esrd/gastroparesis Past Medical History Cardiovascular: HTN, Hyperlipidemia GI: GERD, Other Psych: Anxiety, Depression Renal/: Chronic renal failure Endocrine: Diabetes Past Surgical History Past Surgical History: Cholecystectomy, Other Family History Family History: Hypertension Social History ALCOHOL: occassional Drugs: Marijuana Lives: with Family Current Problem List Problem List Problems Medical Problems: (1) Intractable abdominal pain Status: Acute (2) Intractable vomiting Status: Acute Current Medications Current Medications Current Medications Fentanyl Citrate (Fentanyl 2ml Vial) 50 mcg 1X ONCE IVP Last administered on 05/15/20at 20:03; Start 05/15/20 at 19:45; Stop 05/15/20 at 19:52; Status DC Prochlorperazine Edisylate (Compazine) 10 mg 1X ONCE IV Last administered on 05/15/20at 20:02; Start 05/15/20 at 19:45; Stop 05/15/20 at 19:52; Status DC Fentanyl Citrate (Fentanyl 2ml Vial) 50 mcg 1X ONCE IVP Last administered on 05/15/20at 21:04; Start 05/15/20 at 20:45; Stop 05/15/20 at 20:49; Status DC Metoclopramide HCl (Reglan Vial) 5 mg 1X ONCE IVP Last administered on 05/15/20at 21:04; Start 05/15/20 at 20:45; Stop 05/15/20 at 20:49; Status DC Sodium Chloride 500 ml @ 500 mls/hr 1X ONCE IV ; Start 05/15/20 at 22:15; S top 05/15/20 at 23:14; Status DC Diphenhydramine HCl (Benadryl) 50 mg 1X ONCE IVP Last administered on 05/15/20at 22:14; Start 05/15/20 at 22:15; Stop 05/15/20 at 22:16; Status DC Haloperidol Lactate (Haldol Inj) 5 mg 1X ONCE IM Last administered on at 00:18; Start 05/15/20 at 23:55; Stop 05/15/20 at 23:56; Status DC Promethazine HCl (Phenergan) 12.5 mg 1X ONCE PO Last administered on 05/16/20at 00:18; Start 05/16/20 at 00:00; Stop 05/16/20 at 00:01; Status DC Acetaminophen (Tylenol Supp) 650 mg PRN Q4HRS PRN [place] TEMP OVER 100.4F OR MILD PAIN; Start 05/16/20 at 08:00 Albuterol Sulfate (Ventolin Neb Soln) 2.5 mg PRN Q4HRS PRN NEB SHORTNESS OF BREATH; Start 05/16/20 at 08:00 Amlodipine Besylate (Norvasc) 10 mg DAILY PO ; Start 05/16/20 at 09:00 Bisacodyl (Dulcolax Tab) 5 mg PRN DAILY PRN PO CONSTIPATION; Start 05/16/20 at 08:00 Hydralazine HCl (Apresoline) 50 mg TID PO ; Start 05/16/20 at 09:00 Hydrocortisone (Cortaid) 1 mercedez PRN Q2HRS PRN TP ITCHING; Start 05/16/20 at 08:00 Lidocaine (Lidoderm) 1 patch DAILY TD ; Start 05/16/20 at 09:00 Pantoprazole Sodium (Protonix) 40 mg DAILYAC PO ; Start 05/16/20 at 09:00 Polyethylene Glycol (miraLAX PACKET) 17 gm BID PO ; Start 05/16/20 at 09:00 Promethazine HCl (Phenergan Supp) 25 mg PRN Q6HRS PRN RC NAUSEA/VOMITING; Start 05/16/20 at 08:00 Scopolamine (Transderm-Scop) 1 patch Q3DAYS@0700 TD ; Start 05/16/20 at 09:00 Carvedilol (Coreg) 25 mg BIDWMEALS PO ; Start 05/16/20 at 08:30 Insulin Human Lispro (HumaLOG) 4 units TIDWMEALS SQ ; Start 05/16/20 at 08:30 Promethazine HCl (Phenergan) 25 mg PRN Q6HRS PRN PO NAUSEA/VOMITING; Start 05/16/20 at 08:15 Miscellaneous (Lidoderm Patch Removal) 1 ea QHS MC ; Start 05/16/20 at 21:00 Hydralazine HCl (Apresoline Inj) 10 mg PRN Q4HRS PRN IVP ELEVATED BP, SEE COMMENTS; Start 05/16/20 at 08:00 Insulin Human Lispro (HumaLOG) 0-7 UNITS TIDWMEALS SQ ; Start 05/16/20 at 09:00 Dextrose (Dextrose 50%-Water Syringe) 12.5 gm PRN Q15MIN PRN IV SEE COMMENTS; Start 05/16/20 at 08:15 Labetalol HCl (Normodyne Iv Push) 10 mg PRN Q10MIN PRN IVP HYPERTENSION; Start 05/16/20 at 08:15 Fentanyl Citrate (Fentanyl 2ml Vial) 50 mcg PRN Q2HR PRN IVP PAIN; Start 04/29 04/17 at 08:15 Active Scripts Active Diclegis 10-10 Mg Tablet (Doxylamine/Pyridoxine Hcl) 1 Each Tablet.dr 2 Tab PO QHS 7 Days Promethazine Hcl 25 Mg Supp.rect 25 Mg RC Q6H PRN Anti-Itch (Hydrocortisone Acetate) 28 Gm Oint...g. 1 Mercedez TP PRN Q2HRS PRN 10 Days Transderm-Scop (Scopolamine) 1 Each Patch.td72 1 Patch TD Q3DAYS@0700 10 Days Bisacodyl 5 Mg Tablet.dr 5 Mg PO PRN DAILY PRN 30 Days Acetaminophen Supp (Acetaminophen) 650 Mg Supp.rect 650 Mg [place] PRN Q4HRS PRN 30 Days Proair Hfa (Albuterol Sulfate) 8.5 Gm Hfa.aer.ad 2.5 Mg NEB PRN Q4HRS PRN 30 Days Reglan (Metoclopramide Hcl) 10 Mg Tablet 1 Tab PO QID PRN 5 Days before food and bedtime Lidocaine PATCH (Lidocaine) 1 Each Adh..patch 1 Patch TD DAILY 30 Days Reported Amlodipine Besylate 10 Mg Tablet 10 Mg PO DAILY Hydralazine Hcl 50 Mg Tablet 1 Tab PO TID Carvedilol 25 Mg Tablet 25 Mg PO BIDWMEALS Promethazine Hcl 25 Mg Tablet 1 Tab PO PRN Q6HRS Miralax (Polyethylene Glycol 3350) 17 Gm Powd.pack 1 Packet PO BID Novolog (Insulin Aspart) 100 Unit/1 Ml Cartridge 4 Unit SQ TID Pantoprazole Sodium (Pantoprazole Sodium) 40 Mg Tablet. 1 Tab PO DAILY Allergies Allergies: Coded Allergies: ondansetron (Verified Allergy, Severe, edema, 07/12/19) ketorolac (Verified Allergy, Intermediate, hives, 07/12/19) morphine (Verified Allergy, Intermediate, hives, 07/12/19) Vitals VITALS Vital Signs Date Time Temp Pulse Resp B/P (MAP) Pulse Ox O2 Delivery O2 Flow Rate FiO2 05/16/20 03:30 88 179/103 (128) 05/16/20 03:30 Room Air 05/15/20 23:43 16 100 05/15/20 19:32 98.2 98.2 Labs Labs Laboratory Tests Test 05/15/20 20:15 05/16/20 07:40 White Blood Count 10.8 x10^3/uL (4.0-11.0) Red Blood Count 3.86 x10^6/uL (3.50-5.40) Hemoglobin 12.2 g/dL (12.0-15.5) Hematocrit 35.5 % (36.0-47.0) Mean Corpuscular Volume 92 fL (79-100) Mean Corpuscular Hemoglobin 31 pg (25-35) Mean Corpuscular Hemoglobin Concent 34 g/dL (31-37) Red Cell Distribution Width 16.3 % (11.5-14.5) Platelet Count 269 x10^3/uL (140-400) Neutrophils (%) (Auto) 67 % (31-73) Lymphocytes (%) (Auto) 24 % (24-48) Monocytes (%) (Auto) 7 % (0-9) Eosinophils (%) (Auto) 2 % (0-3) Basophils (%) (Auto) 1 % (0-3) Neutrophils # (Auto) 7.2 x10^3/uL (1.8-7.7) Lymphocytes # (Auto) 2.5 x10^3/uL (1.0-4.8) Monocytes # (Auto) 0.8 x10^3/uL (0.0-1.1) Eosinophils # (Auto) 0.2 x10^3/uL (0.0-0.7) Basophils # (Auto) 0.1 x10^3/uL (0.0-0.2) Prothrombin Time 13.7 SEC (11.7-14.0) Prothromb Time International Ratio 1.1 (0.8-1.1) Sodium Level 138 mmol/L (136-145) Potassium Level 3.5 mmol/L (3.5-5.1) Chloride Level 98 mmol/L (98-107) Carbon Dioxide Level 31 mmol/L (21-32) Anion Gap 9 (6-14) Blood Urea Nitrogen 18 mg/dL (7-20) Creatinine 4.4 mg/dL (0.6-1.0) Estimated GFR (Cockcroft-Gault) 14.1 BUN/Creatinine Ratio 4 (6-20) Glucose Level 170 mg/dL (70-99) Calcium Level 10.0 mg/dL (8.5-10.1) Total Bilirubin 0.4 mg/dL (0.2-1.0) Aspartate Amino Transf (AST/SGOT) 15 U/L (15-37) Alanine Aminotransferase (ALT/SGPT) 13 U/L (14-59) Alkaline Phosphatase 97 U/L (46-116) Troponin I Quantitative < 0.017 ng/mL (0.000-0.055) < 0.017 ng/mL (0.000-0.055) Total Protein 8.3 g/dL (6.4-8.2) Albumin 4.4 g/dL (3.4-5.0) Albumin/Globulin Ratio 1.1 (1.0-1.7) Lipase 273 U/L (73-393) Laboratory Tests Test 05/15/20 20:15 05/16/20 07:40 White Blood Count 10.8 x10^3/uL (4.0-11.0) Red Blood Count 3.86 x10^6/uL (3.50-5.40) Hemoglobin 12.2 g/dL (12.0-15.5) Hematocrit 35.5 % (36.0-47.0) Mean Corpuscular Volume 92 fL (79-100) Mean Corpuscular Hemoglobin 31 pg (25-35) Mean Corpuscular Hemoglobin Concent 34 g/dL (31-37) Red Cell Distribution Width 16.3 % (11.5-14.5) Platelet Count 269 x10^3/uL (140-400) Neutrophils (%) (Auto) 67 % (31-73) Lymphocytes (%) (Auto) 24 % (24-48) Monocytes (%) (Auto) 7 % (0-9) Eosinophils (%) (Auto) 2 % (0-3) Basophils (%) (Auto) 1 % (0-3) Neutrophils # (Auto) 7.2 x10^3/uL (1.8-7.7) Lymphocytes # (Auto) 2.5 x10^3/uL (1.0-4.8) Monocytes # (Auto) 0.8 x10^3/uL (0.0-1.1) Eosinophils # (Auto) 0.2 x10^3/uL (0.0-0.7) Basophils # (Auto) 0.1 x10^3/uL (0.0-0.2) Prothrombin Time 13.7 SEC (11.7-14.0) Prothromb Time International Ratio 1.1 (0.8-1.1) Sodium Level 138 mmol/L (136-145) Potassium Level 3.5 mmol/L (3.5-5.1) Chloride Level 98 mmol/L (98-107) Carbon Dioxide Level 31 mmol/L (21-32) Anion Gap 9 (6-14) Blood Urea Nitrogen 18 mg/dL (7-20) Creatinine 4.4 mg/dL (0.6-1.0) Estimated GFR (Cockcroft-Gault) 14.1 BUN/Creatinine Ratio 4 (6-20) Glucose Level 170 mg/dL (70-99) Calcium Level 10.0 mg/dL (8.5-10.1) Total Bilirubin 0.4 mg/dL (0.2-1.0) Aspartate Amino Transf (AST/SGOT) 15 U/L (15-37) Alanine Aminotransferase (ALT/SGPT) 13 U/L (14-59) Alkaline Phosphatase 97 U/L (46-116) Troponin I Quantitative < 0.017 ng/mL (0.000-0.055) < 0.017 ng/mL (0.000-0.055) Total Protein 8.3 g/dL (6.4-8.2) Albumin 4.4 g/dL (3.4-5.0) Albumin/Globulin Ratio 1.1 (1.0-1.7) Lipase 273 U/L (73-393) Assessment/Plan Assessment/Plan Diffuse abd pain-with ESRD/gastroapresis, multiple unrevealing CT scans for obstruction, await cortisol level prior to prednisone 40 mg iv for possible addision disease Sb series may be needed if noresponse to above as well as surgical consult Full note dictated SOILA JORDAN MD May 16, 2020 08:40
[2020-05-16] MEDS ORDERED: methylPREDNISolone SOD SUCC PF 40 MG/ML VIAL. IV SCH (09:00)
[2020-05-16] MEDS ORDERED: SCOPOLAMINE 1.5MG PATCH. TD SCH (09:00)
--- NOTE | 2020-05-16 09:07 | CONS ---
DATE OF CONSULTATION: 05/16/2020 REASON FOR CONSULTATION: Abdominal pain. HISTORY OF PRESENT ILLNESS: A 34-year-old -[place] female whose past medical history is significant for multiple surgeries includes cholecystectomy, , tubal ligation, and dialysis graft placement as well as hypertension, pancreatitis, renal failure, gastroparesis and partial small-bowel obstructions, admitted to [facility] with worsening abdominal pain. She has had increased nausea and vomiting. States she feels like she is going to , it hurts all over. No family history of lupus or Dundy's disease. Multiple previous imaging studies have been unrevealing for obstruction. Consultation is requested for reevaluation. PAST MEDICAL HISTORY: End-stage renal disease, hypertension, diabetes, gastroparesis. ALLERGIES: KETOROLAC, MORPHINE AND ONDANSETRON. MEDICATIONS: Presently include hydralazine, amlodipine, insulin, carvedilol, fentanyl, labetalol, dextrose. SOCIAL HISTORY: She is on disability. Does not drink or smoke at this time. FAMILY HISTORY: Noncontributory. REVIEW OF SYSTEMS: Per records. PHYSICAL EXAMINATION: GENERAL: Reveals a thin, disabled -[place] female who is alert, cooperative, in mild distress. VITAL SIGNS: Pulse 80, respiratory rate 16, blood pressure 179/103. LUNGS: Clear. CARDIOVASCULAR: Reveals a tachycardic S1, S2 without S3, S4 or appreciable murmur. ABDOMEN: With a soft abdomen with hypoactive bowel sounds with diffuse tenderness. Multiple surgical incisions. EXTREMITIES: Reveals no cyanosis, clubbing or edema. LABORATORY STUDIES: Hemoglobin 12.2, hematocrit 35.5, white count 10.8, platelet count is 259,000. INR is 1.1. Sodium 136, potassium 3.5, chloride 95, bicarbonate is 31, creatinine 4.4, glucose is 170, calcium is 10. Total bilirubin 0.4, AST of 15, ALT of 13, alk phos of 87, total protein 8.3, albumin 4.4, lipase 273. Cortisol level is pending. CT scans are unrevealing for mass, obstruction of poor quality due to artifact and motion. IMPRESSION: Abdominal pain, status post multiple operations; gastroparesis with gut dysmotility and end-stage renal disease and recurrent abdominal pain, possibility of Milton's disease is entertained. In view of the patient's constant fluid restrictions, this would exacerbate her potential condition. Therefore, fasting cortisol stat will be obtained, which should be elevated with the stress, a short course of prednisone will be started to see if this is not elevate her symptoms. If not, then small bowel series and surgical consultations will be obtained for possible partial small obstruction with adhesions, which certainly could be present as well. SOILA JORDAN MD DR: TETE/ebenezer JOB#: [id number] / [id number]
[2020-05-16] MEDS: LIDOCAINE (700MG/PATCH) PATCH. TD SCH (09:15)
--- NOTE | 2020-05-16 12:29 | PDOC2 ---
CONSULT Date of Consult Date of Consult DATE: 05/16/20 TIME: 12:21 Reason for Consult Reason for Consult: ESRD Referring Physician Referring Physician: LACY Identification/Chief Complaint Chief Complaint N/V Source Source: Chart review, Patient History of Present Illness Reason for Visit: THIS IS A 34 YR OLD WITH N/V AND ABD PAIN. HAS ESRD DUE TO DM II AND HTN. HAS A TDC AND L ARM AV ACCESS. HAS OP HD ON TTS. LAST HD WAS YESTERDAY. GI EVALUATION ONGOING. CONCERNS OF RECURRENT N/V DUE TO GASTROPARESIS. LABS ARE C/W HER ESRD STATUS. BP HAS BEEN VERY HIGH DUE TO INABILITY TO KEEP HER MEDS DOWN. Past Medical History Cardiovascular: HTN, Hyperlipidemia GI: GERD, Other Psych: Anxiety, Depression Renal/: Chronic renal failure Endocrine: Diabetes, Hyperparathyroidism Past Surgical History Past Surgical History: Cholecystectomy, Other Family History Family History: Hypertension Social History No ALCOHOL: occassional Drugs: Marijuana Lives: with Family Current Problem List Problem List Problems Medical Problems: (1) Intractable abdominal pain Status: Acute (2) Intractable vomiting Status: Acute Current Medications Current Medications Current Medications Fentanyl Citrate (Fentanyl 2ml Vial) 50 mcg 1X ONCE IVP Last administered on 05/15/20at 20:03; Start 05/15/20 at 19:45; Stop 05/15/20 at 19:52; Status DC Prochlorperazine Edisylate (Compazine) 10 mg 1X ONCE IV Last administered on 05/15/20at 20:02; Start 05/15/20 at 19:45; Stop 05/15/20 at 19:52; Status DC Fentanyl Citrate (Fentanyl 2ml Vial) 50 mcg 1X ONCE IVP Last administered on 05/15/20at 21:04; Start 05/15/20 at 20:45; Stop 05/15/20 at 20:49; Status DC Metoclopramide HCl (Reglan Vial) 5 mg 1X ONCE IVP Last administered on 05/15/20at 21:04; Start 05/15/20 at 20:45; Stop 05/15/20 at 20:49; Status DC Sodium Chloride 500 ml @ 500 mls/hr 1X ONCE IV ; Start 05/15/20 at 22:15; Sto p 05/15/20 at 23:14; Status DC Diphenhydramine HCl (Benadryl) 50 mg 1X ONCE IVP Last administered on 05/15/20at 22:14; Start 05/15/20 at 22:15; Stop 05/15/20 at 22:16; Status DC Haloperidol Lactate (Haldol Inj) 5 mg 1X ONCE IM Last administered on 05/16at 00:18; Start 05/15/20 at 23:55; Stop 05/15/20 at 23:56; Status DC Promethazine HCl (Phenergan) 12.5 mg 1X ONCE PO Last administered on 05/16/20at 00:18; Start 05/16/20 at 00:00; Stop 05/16/20 at 00:01; Status DC Acetaminophen (Tylenol Supp) 650 mg PRN Q4HRS PRN GA TEMP OVER 100.4F OR MILD PAIN; Start 05/16/20 at 08:00 Albuterol Sulfate (Ventolin Neb Soln) 2.5 mg PRN Q4HRS PRN NEB SHORTNESS OF BREATH; Start 05/16/20 at 08:00 Amlodipine Besylate (Norvasc) 10 mg DAILY PO ; Start 05/16/20 at 09:00 Bisacodyl (Dulcolax Tab) 5 mg PRN DAILY PRN PO CONSTIPATION; Start 05/16/20 at 08:00 Hydralazine HCl (Apresoline) 50 mg TID PO ; Start 05/16/20 at 09:00 Hydrocortisone (Cortaid) 1 mercedez PRN Q2HRS PRN TP ITCHING; Start 05/16/20 at 08:00 Lidocaine (Lidoderm) 1 patch DAILY TD Last administered on 05/16/20at 09:15; Start 05/16/20 at 09:00 Pantoprazole Sodium (Protonix) 40 mg DAILYAC PO ; Start 05/16/20 at 09:00 Polyethylene Glycol (miraLAX PACKET) 17 gm BID PO ; Start 05/16/20 at 09:00 Promethazine HCl (Phenergan Supp) 25 mg PRN Q6HRS PRN RC NAUSEA/VOMITING; Start 05/16/20 at 08:00 Scopolamine (Transderm-Scop) 1 patch Q3DAYS@0700 TD Last administered on 05/16/20at 09:12; Start 05/16/20 at 09:00 Carvedilol (Coreg) 25 mg BIDWMEALS PO ; Start 05/16/20 at 08:30 Insulin Human Lispro (HumaLOG) 4 units TIDWMEALS SQ ; Start 05/16/20 at 08:30 Promethazine HCl (Phenergan) 25 mg PRN Q6HRS PRN PO NAUSEA/VOMITING; Start 05/16/20 at 08:15 Miscellaneous (Lidoderm Patch Removal) 1 ea QHS MC ; Start 05/16/20 at 21:00 Hydralazine HCl (Apresoline Inj) 10 mg PRN Q4HRS PRN IVP ELEVATED BP, SEE COMMENTS; Start 05/16/20 at 08:00 Insulin Human Lispro (HumaLOG) 0-7 UNITS TIDWMEALS SQ ; Start 05/16/20 at 09:00 Dextrose (Dextrose 50%-Water Syringe) 12.5 gm PRN Q15MIN PRN IV SEE COMMENTS; Start 05/16/20 at 08:15 Labetalol HCl (Normodyne Iv Push) 10 mg PRN Q10MIN PRN IVP HYPERTENSION; Start 05/16/20 at 08:15 Fentanyl Citrate (Fentanyl 2ml Vial) 50 mcg PRN Q2HR PRN IVP PAIN Last administered on 05/16/20at 10:48; Start 05/16/20 at 08:15 Methylprednisolone Sodium Succinate (SOLU-Medrol 40MG VIAL) 20 mg Q12HR IV Last administered on 05/16/20at 09:14; Start 05/16/20 at 09:00 Active Scripts Active Diclegis 10-10 Mg Tablet (Doxylamine/Pyridoxine Hcl) 1 Each Tablet.dr 2 Tab PO QHS 7 Days Promethazine Hcl 25 Mg Supp.rect 25 Mg RC Q6H PRN Anti-Itch (Hydrocortisone Acetate) 28 Gm Oint...g. 1 Mercedez TP PRN Q2HRS PRN 10 Days Transderm-Scop (Scopolamine) 1 Each Patch.td72 1 Patch TD Q3DAYS@0700 10 Days Bisacodyl 5 Mg Tablet. 5 Mg PO PRN DAILY PRN 30 Days Acetaminophen Supp (Acetaminophen) 650 Mg Supp.rect 650 Mg GA PRN Q4HRS PRN 30 Days Proair Hfa (Albuterol Sulfate) 8.5 Gm Hfa.aer.ad 2.5 Mg NEB PRN Q4HRS PRN 30 Days Reglan (Metoclopramide Hcl) 10 Mg Tablet 1 Tab PO QID PRN 5 Days before food and bedtime Lidocaine PATCH (Lidocaine) 1 Each Adh..patch 1 Patch TD DAILY 30 Days Reported Amlodipine Besylate 10 Mg Tablet 10 Mg PO DAILY Hydralazine Hcl 50 Mg Tablet 1 Tab PO TID Carvedilol 25 Mg Tablet 25 Mg PO BIDWMEALS Promethazine Hcl 25 Mg Tablet 1 Tab PO PRN Q6HRS Miralax (Polyethylene Glycol 3350) 17 Gm Powd.pack 1 Packet PO BID Novolog (Insulin Aspart) 100 Unit/1 Ml Cartridge 4 Unit SQ TID Pantoprazole Sodium (Pantoprazole Sodium) 40 Mg Tablet.dr 1 Tab PO DAILY Allergies Allergies: Coded Allergies: ondansetron (Verified Allergy, Severe, edema, 07/12/19) ketorolac (Verified Allergy, Intermediate, hives, 07/12/19) morphine (Verified Allergy, Intermediate, hives, 07/12/19) ROS General: YES: Fatigue, Malaise, Appetite PSYCHOLOGICAL ROS: YES: Anxiety, Depression Eyes: Yes Decreased vision HEENT: YES: Heacaches Respiratory: YES: Cough Gastrointestinal: Yes Nausea, Yes Vomiting, Yes Abdominal Pain Genitourinary: YES Other (ANURIA) Musculoskeletal: Yes Muscular Weakness Neurological: Yes Weakness Skin: Yes Dry Skin Physical Exam General: Alert, Oriented X3, Cooperative, moderate distress HEENT: Atraumatic, PERRLA Lungs: Clear to auscultation Heart: Regular rate Abdomen: Normal bowel sounds, Soft, No hepatosplenomegaly Extremities: No clubbing, No cyanosis Skin: No breakdown Neuro: Normal speech, Sensation intact, Cranial nerves 3-12 NL Psych/Mental Status: Other (FLAT ANXIOUS AFFECT) MUSCULOSKELETAL: No deformity, No swelling, Other (LEFT ARM AV ACCESS WITH THRILL AND BRUIT) Vitals VITALS Vital Signs Date Time Temp Pulse Resp B/P (MAP) Pulse Ox O2 Delivery O2 Flow Rate FiO2 05/16/20 11:00 97.9 96 22 202/143 (162) 95 97.9 05/16/20 08:30 Room Air Labs Labs Laboratory Tests Test 05/15/20 20:15 05/16/20 07:40 05/16/20 11:00 White Blood Count 10.8 x10^3/uL (4.0-11.0) Red Blood Count 3.86 x10^6/uL (3.50-5.40) Hemoglobin 12.2 g/dL (12.0-15.5) Hematocrit 35.5 % (36.0-47.0) Mean Corpuscular Volume 92 fL (79-100) Mean Corpuscular Hemoglobin 31 pg (25-35) Mean Corpuscular Hemoglobin Concent 34 g/dL (31-37) Red Cell Distribution Width 16.3 % (11.5-14.5) Platelet Count 269 x10^3/uL (140-400) Neutrophils (%) (Auto) 67 % (31-73) Lymphocytes (%) (Auto) 24 % (24-48) Monocytes (%) (Auto) 7 % (0-9) Eosinophils (%) (Auto) 2 % (0-3) Basophils (%) (Auto) 1 % (0-3) Neutrophils # (Auto) 7.2 x10^3/uL (1.8-7.7) Lymphocytes # (Auto) 2.5 x10^3/uL (1.0-4.8) Monocytes # (Auto) 0.8 x10^3/uL (0.0-1.1) Eosinophils # (Auto) 0.2 x10^3/uL (0.0-0.7) Basophils # (Auto) 0.1 x10^3/uL (0.0-0.2) Prothrombin Time 13.7 SEC (11.7-14.0) Prothromb Time International Ratio 1.1 (0.8-1.1) Sodium Level 138 mmol/L (136-145) Potassium Level 3.5 mmol/L (3.5-5.1) Chloride Level 98 mmol/L (98-107) Carbon Dioxide Level 31 mmol/L (21-32) Anion Gap 9 (6-14) Blood Urea Nitrogen 18 mg/dL (7-20) Creatinine 4.4 mg/dL (0.6-1.0) Estimated GFR (Cockcroft-Gault) 14.1 BUN/Creatinine Ratio 4 (6-20) Glucose Level 170 mg/dL (70-99) Calcium Level 10.0 mg/dL (8.5-10.1) Total Bilirubin 0.4 mg/dL (0.2-1.0) Aspartate Amino Transf (AST/SGOT) 15 U/L (15-37) Alanine Aminotransferase (ALT/SGPT) 13 U/L (14-59) Alkaline Phosphatase 97 U/L (46-116) Troponin I Quantitative < 0.017 ng/mL (0.000-0.055) < 0.017 ng/mL (0.000-0.055) Total Protein 8.3 g/dL (6.4-8.2) Albumin 4.4 g/dL (3.4-5.0) Albumin/Globulin Ratio 1.1 (1.0-1.7) Lipase 273 U/L (73-393) Cortisol AM Sample 51.2 ug/dL (4.3-22.4) Laboratory Tests Test 05/15/20 20:15 05/16/20 07:40 05/16/20 11:00 White Blood Count 10.8 x10^3/uL (4.0-11.0) Red Blood Count 3.86 x10^6/uL (3.50-5.40) Hemoglobin 12.2 g/dL (12.0-15.5) Hematocrit 35.5 % (36.0-47.0) Mean Corpuscular Volume 92 fL (79-100) Mean Corpuscular Hemoglobin 31 pg (25-35) Mean Corpuscular Hemoglobin Concent 34 g/dL (31-37) Red Cell Distribution Width 16.3 % (11.5-14.5) Platelet Count 269 x10^3/uL (140-400) Neutrophils (%) (Auto) 67 % (31-73) Lymphocytes (%) (Auto) 24 % (24-48) Monocytes (%) (Auto) 7 % (0-9) Eosinophils (%) (Auto) 2 % (0-3) Basophils (%) (Auto) 1 % (0-3) Neutrophils # (Auto) 7.2 x10^3/uL (1.8-7.7) Lymphocytes # (Auto) 2.5 x10^3/uL (1.0-4.8) Monocytes # (Auto) 0.8 x10^3/uL (0.0-1.1) Eosinophils # (Auto) 0.2 x10^3/uL (0.0-0.7) Basophils # (Auto) 0.1 x10^3/uL (0.0-0.2) Prothrombin Time 13.7 SEC (11.7-14.0) Prothromb Time International Ratio 1.1 (0.8-1.1) Sodium Level 138 mmol/L (136-145) Potassium Level 3.5 mmol/L (3.5-5.1) Chloride Level 98 mmol/L (98-107) Carbon Dioxide Level 31 mmol/L (21-32) Anion Gap 9 (6-14) Blood Urea Nitrogen 18 mg/dL (7-20) Creatinine 4.4 mg/dL (0.6-1.0) Estimated GFR (Cockcroft-Gault) 14.1 BUN/Creatinine Ratio 4 (6-20) Glucose Level 170 mg/dL (70-99) Calcium Level 10.0 mg/dL (8.5-10.1) Total Bilirubin 0.4 mg/dL (0.2-1.0) Aspartate Amino Transf (AST/SGOT) 15 U/L (15-37) Alanine Aminotransferase (ALT/SGPT) 13 U/L (14-59) Alkaline Phosphatase 97 U/L (46-116) Troponin I Quantitative < 0.017 ng/mL (0.000-0.055) < 0.017 ng/mL (0.000-0.055) Total Protein 8.3 g/dL (6.4-8.2) Albumin 4.4 g/dL (3.4-5.0) Albumin/Globulin Ratio 1.1 (1.0-1.7) Lipase 273 U/L (73-393) Cortisol AM Sample 51.2 ug/dL (4.3-22.4) Assessment/Plan Assessment/Plan IMP N/V-GASTROPARESIS HTN EMERGENCY ESRD-TTS DM II PLAN GI EVALUATION ZORAIDA WHEN NEEDED PO MEDS WHEN ABLE CONSIDER ICU TRANSFER AND CARDENE GTT D/W ATTENDING HD TOMORROW WILL FOLLOW ANNA ROSE MD May 16, 2020 12:29
[2020-05-16] MEDS: hydrALAZINE 20 MG/ML VIAL. IVP PRN (13:32)
--- NOTE | 2020-05-16 14:49 | NUR ---
Pt transferred from room 521 to ICU, room 104 by wheelchair. Transfer report given to HAL Villalobos by telephone. Belongings sent with pt at time of transfer.
[2020-05-16] MEDS: HYDROmorphone 2 MG/ML VIAL IVP PRN ×2 (15:11→19:12)
[2020-05-16] MEDS: LABETALOL 20 MG/4 ML DISP.SYRIN. IVP PRN ×3 (15:24→22:20)
--- NOTE | 2020-05-16 15:30 | NUR ---
SW following. Spoke with RN and reviewed chart. Pt from home with family. Pt does outpatient dialysis on Tuesdays, and Saturdays at [facility], , (fax). Pt currently on room air and IV pain medication. Pt transferred to ICU. HERBER Gaspar to follow.
[2020-05-16] MEDS: PROMETHAZINE 12.5 MG TABLET. PO PRN (17:02)
[2020-05-16] MEDS ORDERED: BISACODYL 10 MG SUPP.RECT. PR PRN (17:45)
[2020-05-16] MEDS ORDERED: MAGNESIUM HYDROXIDE 2,400 MG/30 ML ORAL.SUSP. PO PRN (17:45)
[2020-05-16] MEDS ORDERED: LACTULOSE 20 GM/30 ML SOLUTION. PO PRN (17:45)
[2020-05-16] MEDS: PATCH REMOVAL. MC SCH (21:00)
[2020-05-16] MEDS: HEPARIN for SUB-Q USE 5,000 UNIT/ML VIAL. SQ SCH (22:22)
[2020-05-17] VITALS (15 sets, daily range): BP systolic 112–177; BP diastolic 67–99
[2020-05-17] MEDS: HYDROmorphone 2 MG/ML VIAL IVP PRN ×3 (00:24→19:04)
[2020-05-17] MEDS: PANTOPRAZOLE 40 MG TABLET.DR. PO SCH (01:08)
[2020-05-17] MEDS: PROMETHAZINE 12.5 MG TABLET. PO PRN (02:36)
[2020-05-17 05:23] LABS: BASO # 0.1 x10^3/uL (0.0-0.2); BASO % 1 % (0-3); EOS % 0 % (0-3); HEMOGLOBIN 11.3 g/dL (12.0-15.5); LYMPH # 2.1 x10^3/uL (1.0-4.8); LYMPH % 17 % (24-48); MEAN CORPUSCULAR HEMOGLOBIN 31 pg (25-35); MEAN CORPUSCULAR HGB CONC 33 g/dL (31-37); MEAN CORPUSCULAR VOLUME 93 fL (79-100); MONO # 1.2 x10^3/uL (0.0-1.1); MONO % 9 % (0-9); NEUT # 9.4 x10^3/uL (1.8-7.7); NEUT % 73 % (31-73); PLATELET COUNT 262 x10^3/uL (140-400); RED BLOOD COUNT 3.67 x10^6/uL (3.50-5.40); RED CELL DISTRIBUTION WIDTH 15.9 % (11.5-14.5); WHITE BLOOD COUNT 12.8 x10^3/uL (4.0-11.0)
[2020-05-17 05:38] LABS: CALCIUM 9.8 mg/dL (8.5-10.1); CREATININE 6.2 mg/dL (0.6-1.0); GFR 9.5; POTASSIUM 4.5 mmol/L (3.5-5.1)
[2020-05-17] MEDS: hydrALAZINE 20 MG/ML VIAL. IVP PRN (05:52)
--- NOTE | 2020-05-17 07:08 | PDOC ---
[employer] PROGRESS NOTE Date of Service DOS: DATE: 05/17/20 TIME: 07:06 Chief Complaint Chief Complaint Diabetic gastroparesis Cannabis hyperemesis End-stage renal disease on hemodialysis Intractable abdominal pain Intractable nausea/vomiting Hypertensive emergency FEN - NPO PPX - Heparin FULL CODE Dispo - ICU for hypertensive emergency History of Present Illness History of Present Illness Ms Lynch is a 34-year-old female w/ PMHx ESRD on HD TuThSa, Type 1 diabetes, gastroparesis, who presents with complaint of abdominal pain. Patient reports left lower quadrant abdominal pain that is sharp and cramping in nature, 10/10 at worst. She admits to some associated vomiting, and is unsure of her last bowel movement. Further history is unable to obtain as patient is somewhat of a poor historian. Upon admission patient was noted to have systolic blood pressure >200 mmHg. She was started on nicardipine drip and transferred to the ICU for monitoring. Temp 98.2, pulse 90, BP 227/110 WBC 10.8, BUN 18, Cr 4.4 UA (05/08/20): Trace leukocyte esterase, negative nitrites, WBC 14, few squamous cells. Seen on dialysis in ICU. BP came down overnight. Still with left lower quadrant pain that radiates into the back. She does trink menses are irregular for the last month. Her period was late last month 04/24/2020. She is not sexually active. Still with nausea. Did have a bowel movement in the ED but none since. Passing flatus. Glucose in 100s. Plan: Repeat abdominal imaging, will US as she cannot lay flat, assess for ovarian torsion NPO for now, ice chips and liquid diet later today if nausea improves Vitals/I&O Vitals/I&O: Vital Signs Date Time Temp Pulse Resp B/P (MAP) Pulse Ox O2 Delivery O2 Flow Rate FiO2 05/17/20 07:00 81 20 159/84 (109) 100 Room Air 05/17/20 04:00 97.5 97.5 I & O 05/16/20 05/16/20 05/17/20 15:00 23:00 07:00 Intake Total 0 ml 0 ml Output Total 250 ml Balance -250 ml 0 ml Physical Exam General: Alert, Oriented X3, Cooperative, moderate distress Heart: Regular rate Lungs: Clear Abdomen: Normal bowel sounds, Soft, No hepatosplenomegaly Extremities: No clubbing, No cyanosis Skin: No breakdown Labs Labs: Laboratory Tests Test 05/16/20 07:40 05/16/20 11:00 05/16/20 17:11 05/17/20 05:00 Troponin I Quantitative < 0.017 ng/mL (0.000-0.055) C-Reactive Protein, Quantitative 2.2 mg/L (0-3.3) Cortisol AM Sample 51.2 ug/dL (4.3-22.4) Glucose (Fingerstick) 173 mg/dL (70-99) White Blood Count 12.8 x10^3/uL (4.0-11.0) Red Blood Count 3.67 x10^6/uL (3.50-5.40) Hemoglobin 11.3 g/dL (12.0-15.5) Hematocrit 34.0 % (36.0-47.0) Mean Corpuscular Volume 93 fL (79-100) Mean Corpuscular Hemoglobin 31 pg (25-35) Mean Corpuscular Hemoglobin Concent 33 g/dL (31-37) Red Cell Distribution Width 15.9 % (11.5-14.5) Platelet Count 262 x10^3/uL (140-400) Neutrophils (%) (Auto) 73 % (31-73) Lymphocytes (%) (Auto) 17 % (24-48) Monocytes (%) (Auto) 9 % (0-9) Eosinophils (%) (Auto) 0 % (0-3) Basophils (%) (Auto) 1 % (0-3) Neutrophils # (Auto) 9.4 x10^3/uL (1.8-7.7) Lymphocytes # (Auto) 2.1 x10^3/uL (1.0-4.8) Monocytes # (Auto) 1.2 x10^3/uL (0.0-1.1) Eosinophils # (Auto) 0.0 x10^3/uL (0.0-0.7) Basophils # (Auto) 0.1 x10^3/uL (0.0-0.2) Sodium Level 137 mmol/L (136-145) Potassium Level 4.5 mmol/L (3.5-5.1) Chloride Level 97 mmol/L (98-107) Carbon Dioxide Level 27 mmol/L (21-32) Anion Gap 13 (6-14) Blood Urea Nitrogen 43 mg/dL (7-20) Creatinine 6.2 mg/dL (0.6-1.0) Estimated GFR (Cockcroft-Gault) 9.5 Glucose Level 179 mg/dL (70-99) Calcium Level 9.8 mg/dL (8.5-10.1) Assessment and Plan Assessmemt and Plan Problems Medical Problems: (1) End stage renal disease Status: Acute (2) Intractable abdominal pain Status: Acute (3) Intractable vomiting Status: Acute Comment Review of Relevant I have reviewed the following items mine (where applicable) has been applied. Medications: Current Medications Medications (Trade) Dose Ordered Sig/Brown Route PRN Reason Start Time Stop Time Status Last Admin Dose Admin Hydralazine HCl (Apresoline) 50 mg TID PO 05/16/20 09:00 05/16/20 22:20 Lidocaine (Lidoderm) 1 patch DAILY TD 05/16/20 09:00 05/16/20 09:15 Scopolamine (Transderm-Scop) 1 patch Q3DAYS@0700 TD 05/16/20 09:00 05/16/20 09:12 Carvedilol (Coreg) 25 mg BIDWMEALS PO 05/16/20 08:30 05/16/20 17:06 Promethazine HCl (Phenergan) 25 mg PRN Q6HRS PRN PO NAUSEA/VOMITING 05/16/20 08:15 05/17/20 02:36 Miscellaneous (Lidoderm Patch Removal) 1 ea QHS MC 05/16/20 21:00 05/16/20 21:00 Hydralazine HCl (Apresoline Inj) 10 mg PRN Q4HRS PRN IVP ELEVATED BP, SEE COMMENTS 05/16/20 08:00 05/17/20 05:52 Labetalol HCl (Normodyne Iv Push) 10 mg PRN Q10MIN PRN IVP HYPERTENSION 05/16/20 08:15 05/16/20 22:20 Fentanyl Citrate (Fentanyl 2ml Vial) 50 mcg PRN Q2HR PRN IVP PAIN 05/16/20 08:15 05/16/20 14:09 DC 05/16/20 13:27 Methylprednisolone Sodium Succinate (SOLU-Medrol 40MG VIAL) 20 mg Q12HR IV 05/16/20 09:00 05/16/20 15:23 DC 05/16/20 09:14 Hydromorphone HCl (Dilaudid) 2 mg PRN Q4HRS PRN IVP PAIN 05/16/20 14:15 05/17/20 04:26 Heparin Sodium (Porcine) (Heparin Sodium) 5,000 unit Q12HR SQ 05/16/20 21:00 05/16/20 22:22 Justifications for Admission Other Justification Intractable abdominal pain MARIAH CAMPBELL MD May 17, 2020 07:08
[2020-05-17] MEDS: INSULIN LISPRO 300 UNITS/3 ML VIAL. SQ SCH ×6 (08:00→17:00)
[2020-05-17] MEDS: POLYETHYLENE GLYCOL 3350 17 GM PACKET. PO SCH ×2 (09:00→21:00)
[2020-05-17] MEDS ORDERED: IV NORMAL SALINE 1000ML BAG 1,000 ML IV PRN ×2 (10:08)
[2020-05-17] MEDS ORDERED: ALBUMIN HUMAN 25% 200 ML IV PRN (10:15)
[2020-05-17] MEDS ORDERED: diphenhydrAMINE 50 MG/ML VIAL IV PRN (10:15)
[2020-05-17] MEDS ORDERED: DIALYSIS PATIENT. MC PRN (10:15)
[2020-05-17] MEDS: HEPARIN for SUB-Q USE 5,000 UNIT/ML VIAL. SQ SCH ×2 (12:04→21:00)
[2020-05-17] MEDS: amLODIPine BESYLATE 10 MG TABLET PO SCH (12:05)
[2020-05-17] MEDS: CARVEDILOL 12.5 MG TABLET. PO SCH ×2 (12:05→17:19)
[2020-05-17] MEDS: LIDOCAINE (700MG/PATCH) PATCH. TD SCH (12:06)
--- NOTE | 2020-05-17 12:30 | NUR ---
Patient transferred up to unit at 1220 with patient's belongings.
--- NOTE | 2020-05-17 12:42 | PDOC ---
PROGRESS NOTES Date of Service DATE: 05/17/20 TIME: 12:40 Subjective Subjective IN FOLLOW UP OF ESRD Objective Objective Vital Signs Date Time Temp Pulse Resp B/P (MAP) Pulse Ox O2 Delivery O2 Flow Rate FiO2 05/17/20 12:05 88 156/91 05/17/20 11:00 20 97 Room Air 05/17/20 04:00 97.5 97.5 Intake and Output 05/17/20 07:00 Intake Total 0 ml Output Total 250 ml Balance -250 ml Intake Oral 0 ml Output Urine Total 250 ml Physical Exam Abdomen: Normal bowel sounds, Soft, No tenderness, No hepatosplenomegaly, No masses Heart: Regular rate, Normal S1, Normal S2, No murmurs, Gallops Extremities: No clubbing, No cyanosis, No edema, Normal pulses, No tenderness/swelling General: Alert, Oriented X3, Cooperative, No acute distress Lungs: Clear to auscultation, Normal air movement Psych/Mental Status: Mental status NL, Mood NL Diagnosis RENAL FAILURE: ESRD Assessment Assessment Problems Medical Problems: (1) End stage renal disease Status: Acute (2) Intractable abdominal pain Status: Acute (3) Intractable vomiting Status: Acute Plan Plan of Care DIALYSIS TODAY AND TOLERATED WELL. NO FLUID REMOVAL. Comment Review of Relevant I have reviewed the following items mine (where applicable) has been applied. Labs Laboratory Tests Test 05/15/20 20:15 05/16/20 07:40 05/16/20 11:00 05/16/20 17:11 White Blood Count 10.8 x10^3/uL (4.0-11.0) Red Blood Count 3.86 x10^6/uL (3.50-5.40) Hemoglobin 12.2 g/dL (12.0-15.5) Hematocrit 35.5 % (36.0-47.0) Mean Corpuscular Volume 92 fL (79-100) Mean Corpuscular Hemoglobin 31 pg (25-35) Mean Corpuscular Hemoglobin Concent 34 g/dL (31-37) Red Cell Distribution Width 16.3 % (11.5-14.5) Platelet Count 269 x10^3/uL (140-400) Neutrophils (%) (Auto) 67 % (31-73) Lymphocytes (%) (Auto) 24 % (24-48) Monocytes (%) (Auto) 7 % (0-9) Eosinophils (%) (Auto) 2 % (0-3) Basophils (%) (Auto) 1 % (0-3) Neutrophils # (Auto) 7.2 x10^3/uL (1.8-7.7) Lymphocytes # (Auto) 2.5 x10^3/uL (1.0-4.8) Monocytes # (Auto) 0.8 x10^3/uL (0.0-1.1) Eosinophils # (Auto) 0.2 x10^3/uL (0.0-0.7) Basophils # (Auto) 0.1 x10^3/uL (0.0-0.2) Prothrombin Time 13.7 SEC (11.7-14.0) Prothromb Time International Ratio 1.1 (0.8-1.1) Sodium Level 138 mmol/L (136-145) Potassium Level 3.5 mmol/L (3.5-5.1) Chloride Level 98 mmol/L (98-107) Carbon Dioxide Level 31 mmol/L (21-32) Anion Gap 9 (6-14) Blood Urea Nitrogen 18 mg/dL (7-20) Creatinine 4.4 mg/dL (0.6-1.0) Estimated GFR (Cockcroft-Gault) 14.1 BUN/Creatinine Ratio 4 (6-20) Glucose Level 170 mg/dL (70-99) Calcium Level 10.0 mg/dL (8.5-10.1) Total Bilirubin 0.4 mg/dL (0.2-1.0) Aspartate Amino Transf (AST/SGOT) 15 U/L (15-37) Alanine Aminotransferase (ALT/SGPT) 13 U/L (14-59) Alkaline Phosphatase 97 U/L (46-116) Troponin I Quantitative < 0.017 ng/mL (0.000-0.055) < 0.017 ng/mL (0.000-0.055) Total Protein 8.3 g/dL (6.4-8.2) Albumin 4.4 g/dL (3.4-5.0) Albumin/Globulin Ratio 1.1 (1.0-1.7) Lipase 273 U/L (73-393) C-Reactive Protein, Quantitative 2.2 mg/L (0-3.3) Cortisol AM Sample 51.2 ug/dL (4.3-22.4) Glucose (Fingerstick) 173 mg/dL (70-99) Test 05/17/20 05:00 05/17/20 12:03 White Blood Count 12.8 x10^3/uL (4.0-11.0) Red Blood Count 3.67 x10^6/uL (3.50-5.40) Hemoglobin 11.3 g/dL (12.0-15.5) Hematocrit 34.0 % (36.0-47.0) Mean Corpuscular Volume 93 fL (79-100) Mean Corpuscular Hemoglobin 31 pg (25-35) Mean Corpuscular Hemoglobin Concent 33 g/dL (31-37) Red Cell Distribution Width 15.9 % (11.5-14.5) Platelet Count 262 x10^3/uL (140-400) Neutrophils (%) (Auto) 73 % (31-73) Lymphocytes (%) (Auto) 17 % (24-48) Monocytes (%) (Auto) 9 % (0-9) Eosinophils (%) (Auto) 0 % (0-3) Basophils (%) (Auto) 1 % (0-3) Neutrophils # (Auto) 9.4 x10^3/uL (1.8-7.7) Lymphocytes # (Auto) 2.1 x10^3/uL (1.0-4.8) Monocytes # (Auto) 1.2 x10^3/uL (0.0-1.1) Eosinophils # (Auto) 0.0 x10^3/uL (0.0-0.7) Basophils # (Auto) 0.1 x10^3/uL (0.0-0.2) Sodium Level 137 mmol/L (136-145) Potassium Level 4.5 mmol/L (3.5-5.1) Chloride Level 97 mmol/L (98-107) Carbon Dioxide Level 27 mmol/L (21-32) Anion Gap 13 (6-14) Blood Urea Nitrogen 43 mg/dL (7-20) Creatinine 6.2 mg/dL (0.6-1.0) Estimated GFR (Cockcroft-Gault) 9.5 Glucose Level 179 mg/dL (70-99) Calcium Level 9.8 mg/dL (8.5-10.1) Glucose (Fingerstick) 86 mg/dL (70-99) Laboratory Tests Test 05/16/20 17:11 05/17/20 05:00 05/17/20 12:03 Glucose (Fingerstick) 173 mg/dL (70-99) 86 mg/dL (70-99) White Blood Count 12.8 x10^3/uL (4.0-11.0) Red Blood Count 3.67 x10^6/uL (3.50-5.40) Hemoglobin 11.3 g/dL (12.0-15.5) Hematocrit 34.0 % (36.0-47.0) Mean Corpuscular Volume 93 fL (79-100) Mean Corpuscular Hemoglobin 31 pg (25-35) Mean Corpuscular Hemoglobin Concent 33 g/dL (31-37) Red Cell Distribution Width 15.9 % (11.5-14.5) Platelet Count 262 x10^3/uL (140-400) Neutrophils (%) (Auto) 73 % (31-73) Lymphocytes (%) (Auto) 17 % (24-48) Monocytes (%) (Auto) 9 % (0-9) Eosinophils (%) (Auto) 0 % (0-3) Basophils (%) (Auto) 1 % (0-3) Neutrophils # (Auto) 9.4 x10^3/uL (1.8-7.7) Lymphocytes # (Auto) 2.1 x10^3/uL (1.0-4.8) Monocytes # (Auto) 1.2 x10^3/uL (0.0-1.1) Eosinophils # (Auto) 0.0 x10^3/uL (0.0-0.7) Basophils # (Auto) 0.1 x10^3/uL (0.0-0.2) Sodium Level 137 mmol/L (136-145) Potassium Level 4.5 mmol/L (3.5-5.1) Chloride Level 97 mmol/L (98-107) Carbon Dioxide Level 27 mmol/L (21-32) Anion Gap 13 (6-14) Blood Urea Nitrogen 43 mg/dL (7-20) Creatinine 6.2 mg/dL (0.6-1.0) Estimated GFR (Cockcroft-Gault) 9.5 Glucose Level 179 mg/dL (70-99) Calcium Level 9.8 mg/dL (8.5-10.1) Medications Current Medications Fentanyl Citrate (Fentanyl 2ml Vial) 50 mcg 1X ONCE IVP Last administered on 05/15/20at 20:03; Start 05/15/20 at 19:45; Stop 05/15/20 at 19:52; Status DC Prochlorperazine Edisylate (Compazine) 10 mg 1X ONCE IV Last administered on 05/15/20at 20:02; Start 05/15/20 at 19:45; Stop 05/15/20 at 19:52; Status DC Fentanyl Citrate (Fentanyl 2ml Vial) 50 mcg 1X ONCE IVP Last administered on 05/15/20at 21:04; Start 05/15/20 at 20:45; Stop 05/15/20 at 20:49; Status DC Metoclopramide HCl (Reglan Vial) 5 mg 1X ONCE IVP Last administered on 05/15/20at 21:04; Start 05/15/20 at 20:45; Stop 05/15/20 at 20:49; Status DC Sodium Chloride 500 ml @ 500 mls/hr 1X ONCE IV ; Start 05/15/20 at 22:15; Stop 05/15/20 at 23:14; Status DC Diphenhydramine HCl (Benadryl) 50 mg 1X ONCE IVP Last administered on 05/15/20at 22:14; Start 05/15/20 at 22:15; Stop 05/15/20 at 22:16; Status DC Haloperidol Lactate (Haldol Inj) 5 mg 1X ONCE IM Last administered on 05/16/20at 00:18; Start 05/15/20 at 23:55; Stop 05/15/20 at 23:56; Status DC Promethazine HCl (Phenergan) 12.5 mg 1X ONCE PO Last administered on 05/16/20at 00:18; Start 05/16/20 at 00:00; Stop 05/16/20 at 00:01; Status DC Acetaminophen (Tylenol Supp) 650 mg PRN Q4HRS PRN ND TEMP OVER 100.4F OR MILD PAIN; Start 05/16/20 at 08:00 Albuterol Sulfate (Ventolin Neb Soln) 2.5 mg PRN Q4HRS PRN NEB SHORTNESS OF BREATH; Start 05/16/20 at 08:00 Amlodipine Besylate (Norvasc) 10 mg DAILY PO Last administered on 05/17/20at 12:05; Start 05/16/20 at 09:00 Bisacodyl (Dulcolax Tab) 5 mg PRN DAILY PRN PO CONSTIPATION, 2nd choice; Start 05/16/20 at 08:00 Hydralazine HCl (Apresoline) 50 mg TID PO Last administered on 05/16/20at 22:20; Start 05/16/20 at 09:00 Hydrocortisone (Cortaid) 1 mercedez PRN Q2HRS PRN TP ITCHING; Start 05/16/20 at 08:00 Lidocaine (Lidoderm) 1 patch DAILY TD Last administered on 05/17/20at 12:06; Start 05/16/20 at 09:00 Pantoprazole Sodium (Protonix) 40 mg DAILYAC PO ; Start 05/16/20 at 09:00 Polyethylene Glycol (miraLAX PACKET) 17 gm BID PO ; Start 05/16/20 at 09:00 Promethazine HCl (Phenergan Supp) 25 mg PRN Q6HRS PRN RC NAUSEA/VOMITING; Start 05/16/20 at 08:00 Scopolamine (Transderm-Scop) 1 patch Q3DAYS@0700 TD Last administered on 05/16/20at 09:12; Start 05/16/20 at 09:00 Carvedilol (Coreg) 25 mg BIDWMEALS PO Last administered on 05/17/20at 12:05; Start 05/16/20 at 08:30 Insulin Human Lispro (HumaLOG) 4 units TIDWMEALS SQ ; Start 05/16/20 at 08:30 Promethazine HCl (Phenergan) 25 mg PRN Q6HRS PRN PO NAUSEA/VOMITING Last administered on 05/17/20at 02:36; Start 05/16/20 at 08:15 Miscellaneous (Lidoderm Patch Removal) 1 ea QHS MC Last administered on 05/16/20at 21:00; Start 05/16/20 at 21:00 Hydralazine HCl (Apresoline Inj) 10 mg PRN Q4HRS PRN IVP ELEVATED BP, 1st choice Last administered on 05/17/20at 05:52; Start 05/16/20 at 08:00 Insulin Human Lispro (HumaLOG) 0-7 UNITS TIDWMEALS SQ ; Start 05/16/20 at 09:00 Dextrose (Dextrose 50%-Water Syringe) 12.5 gm PRN Q15MIN PRN IV SEE COMMENTS; Start 05/16/20 at 08:15 Labetalol HCl (Normodyne Iv Push) 10 mg PRN Q10MIN PRN IVP HYPERTENSION, 2nd choice Last administered on 05/16/20at 22:20; Start 05/16/20 at 08:15 Fentanyl Citrate (Fentanyl 2ml Vial) 50 mcg PRN Q2HR PRN IVP PAIN Last administered on 05/16/20at 13:27; Start 05/16/20 at 08:15; Stop 05/16/20 at 14:09; Status DC Methylprednisolone Sodium Succinate (SOLU-Medrol 40MG VIAL) 20 mg Q12HR IV Last administered on 05/16/20at 09:14; Start 05/16/20 at 09:00; Stop 05/16/20 at 15:23; Status DC Nicardipine HCl 50 mg/Sodium Chloride 250 ml @ 25 mls/hr CONT PRN IV SEE I/O RECORD; Start 05/16/20 at 12:45 Hydromorphone HCl (Dilaudid) 2 mg PRN Q4HRS PRN IVP PAIN Last administered on 05/17/20at 04:26; Start 05/16/20 at 14:15; Stop 05/17/20 at 09:31; Status DC Magnesium Hydroxide (Milk Of Magnesia) 2,400 mg PRN Q12HR PRN PO CONSTIPATION, 1st choice; Start 05/16/20 at 17:45 Lactulose (Lactulose) 20 gm PRN Q12HR PRN PO CONSTIPATION, 3rd choice; Start 05/16/20 at 17:45 Bisacodyl (Dulcolax Supp) 10 mg PRN DAILY PRN ND CONSTIPATION; Start 05/16/20 at 17:45 Heparin Sodium (Porcine) (Heparin Sodium) 5,000 unit Q12HR SQ Last administered on 05/17/20at 12:04; Start 05/16/20 at 21:00 Hydromorphone HCl (Dilaudid) 0.5 mg PRN Q8HRS PRN IVP PAIN; Start 05/17/20 at 16:00 Insulin Glargine (Lantus Syringe) 10 unit QHS SQ ; Start 05/17/20 at 21:00 Sodium Chloride 1,000 ml @ 1,000 mls/hr Q1H PRN IV hypotension; Start 05/17/20 at 10:08; Stop 05/17/20 at 16:07 Albumin Human 200 ml @ 200 mls/hr 1X PRN PRN IV Hypotension; Start 05/17/20 at 10:15; Stop 05/17/20 at 16:14 Diphenhydramine HCl (Benadryl) 25 mg 1X PRN PRN IV ITCHING Last administered on 05/17/20at 10:25; Start 05/17/20 at 10:15; Stop 05/18/20 at 10:14 Sodium Chloride 1,000 ml @ 400 mls/hr Q2H30M PRN IV PATENCY; Start 05/17/20 at 10:08; Stop 05/17/20 at 22:07 Info (PHARMACY MONITORING -- do not chart) 1 each PRN DAILY PRN MC SEE COMMENTS; Start 05/17/20 at 10:15 Active Scripts Active Diclegis 10-10 Mg Tablet (Doxylamine/Pyridoxine Hcl) 1 Each Tablet.dr 2 Tab PO QHS 7 Days Promethazine Hcl 25 Mg Supp.rect 25 Mg RC Q6H PRN Anti-Itch (Hydrocortisone Acetate) 28 Gm Oint...g. 1 Mercedez TP PRN Q2HRS PRN 10 Days Transderm-Scop (Scopolamine) 1 Each Patch.td72 1 Patch TD Q3DAYS@0700 10 Days Bisacodyl 5 Mg Tablet.dr 5 Mg PO PRN DAILY PRN 30 Days Acetaminophen Supp (Acetaminophen) 650 Mg Supp.rect 650 Mg ND PRN Q4HRS PRN 30 Days Proair Hfa (Albuterol Sulfate) 8.5 Gm Hfa.aer.ad 2.5 Mg NEB PRN Q4HRS PRN 30 D ays Reglan (Metoclopramide Hcl) 10 Mg Tablet 1 Tab PO QID PRN 5 Days before food and bedtime Lidocaine PATCH (Lidocaine) 1 Each Adh..patch 1 Patch TD DAILY 30 Days Reported Amlodipine Besylate 10 Mg Tablet 10 Mg PO DAILY Hydralazine Hcl 50 Mg Tablet 1 Tab PO TID Carvedilol 25 Mg Tablet 25 Mg PO BIDWMEALS Promethazine Hcl 25 Mg Tablet 1 Tab PO PRN Q6HRS Miralax (Polyethylene Glycol 3350) 17 Gm Powd.pack 1 Packet PO BID Novolog (Insulin Aspart) 100 Unit/1 Ml Cartridge 4 Unit SQ TID Pantoprazole Sodium (Pantoprazole Sodium) 40 Mg Tablet. 1 Tab PO DAILY Vitals/I & O Vital Sign - Last 24 Hours 05/16/20 05/16/20 05/16/20 05/16/20 13:32 15:00 15:00 15:11 Temp 98.4 98.4 Pulse 96 90 Resp 18 18 B/P (MAP) 202/143 166/106 (126) Pulse Ox 100 100 O2 Delivery Room Air Room Air 05/16/20 05/16/20 05/16/20 05/16/20 15:24 15:40 16:00 17:00 Pulse 89 88 84 Resp 18 18 19 B/P (MAP) 215/106 247/103 (151) 166/101 (122) Pulse Ox 99 100 100 O2 Delivery Room Air Room Air Room Air 05/16/20 05/16/20 05/16/20 05/16/20 17:03 17:06 18:00 19:00 Pulse 94 90 82 86 Resp 19 20 B/P (MAP) 186/110 186/110 159/100 (119) 159/100 (119) Pulse Ox 100 100 O2 Delivery Room Air Room Air 05/16/20 05/16/20 05/16/20 05/16/20 19:12 20:00 21:00 22:00 Pulse 78 72 Resp 12 18 16 B/P (MAP) 164/105 (124) 183/119 (140) Pulse Ox 100 98 100 O2 Delivery Room Air Room Air Room Air 05/16/20 05/16/20 05/16/20 05/16/20 22:20 22:20 23:11 23:49 Pulse 72 72 75 Resp 18 B/P (MAP) 183/119 183/119 178/102 (127) Pulse Ox 100 O2 Delivery Room Air Room Air 05/17/20 05/17/20 05/17/20 05/17/20 00:00 00:24 00:54 01:00 Temp 98.3 98.3 Pulse 80 78 Resp 16 18 B/P (MAP) 160/86 (110) 146/99 (115) Pulse Ox 100 99 O2 Delivery Room Air Room Air Room Air Room Air 05/17/20 05/17/20 05/17/20 05/17/20 02:00 03:00 04:00 04:00 Temp 97.5 97.5 Pulse 74 72 70 Resp 18 16 B/P (MAP) 147/95 (112) 166/67 (100) 136/79 (98) Pulse Ox 96 98 94 O2 Delivery Room Air Room Air Room Air Room Air 05/17/20 05/17/20 05/17/20 05/17/20 04:26 04:56 05:00 05:52 Pulse 78 77 Resp 16 B/P (MAP) 176/96 (122) 183/104 Pulse Ox 99 O2 Delivery Room Air Room Air Room Air 05/17/20 05/17/20 05/17/20 05/17/20 06:00 06:00 07:00 07:55 Pulse 86 81 81 Resp 18 16 20 B/P (MAP) 177/85 (115) 158/91 (113) 159/84 (109) Pulse Ox 98 100 100 O2 Delivery Room Air Room Air Room Air Room Air 05/17/20 05/17/20 05/17/20 05/17/20 08:00 09:00 11:00 12:05 Pulse 79 80 86 82 Resp 16 16 20 B/P (MAP) 157/84 (108) 141/88 (105) 139/73 (95) 156/91 Pulse Ox 99 98 97 O2 Delivery Room Air Room Air Room Air 05/17/20 12:05 Pulse 88 B/P (MAP) 156/91 Intake and Output 05/16/20 05/16/20 05/17/20 15:00 23:00 07:00 Intake Total 0 ml 0 ml Output Total 250 ml Balance -250 ml 0 ml Justifications for Admission Other Justification Intractable abdominal pain LYLY ZHU MD May 17, 2020 12:42
--- NOTE | 2020-05-17 14:57 | PDOC ---
Date of Service: DATE: 05/17/20 TIME: 14:51 Subjective: Subjective: She complains of LLQ pain as source of nausea No BM since Objective: Vital Signs: Vital Signs Date Time Temp Pulse Resp B/P (MAP) Pulse Ox O2 Delivery O2 Flow Rate FiO2 05/17/20 14:28 Room Air 05/17/20 14:28 76 164/98 05/17/20 11:00 20 97 05/17/20 04:00 97.5 97.5 Labs: Laboratory Tests Test 05/16/20 17:11 05/17/20 05:00 05/17/20 12:03 Glucose (Fingerstick) 173 mg/dL (70-99) 86 mg/dL (70-99) White Blood Count 12.8 x10^3/uL (4.0-11.0) Red Blood Count 3.67 x10^6/uL (3.50-5.40) Hemoglobin 11.3 g/dL (12.0-15.5) Hematocrit 34.0 % (36.0-47.0) Mean Corpuscular Volume 93 fL (79-100) Mean Corpuscular Hemoglobin 31 pg (25-35) Mean Corpuscular Hemoglobin Concent 33 g/dL (31-37) Red Cell Distribution Width 15.9 % (11.5-14.5) Platelet Count 262 x10^3/uL (140-400) Neutrophils (%) (Auto) 73 % (31-73) Lymphocytes (%) (Auto) 17 % (24-48) Monocytes (%) (Auto) 9 % (0-9) Eosinophils (%) (Auto) 0 % (0-3) Basophils (%) (Auto) 1 % (0-3) Neutrophils # (Auto) 9.4 x10^3/uL (1.8-7.7) Lymphocytes # (Auto) 2.1 x10^3/uL (1.0-4.8) Monocytes # (Auto) 1.2 x10^3/uL (0.0-1.1) Eosinophils # (Auto) 0.0 x10^3/uL (0.0-0.7) Basophils # (Auto) 0.1 x10^3/uL (0.0-0.2) Sodium Level 137 mmol/L (136-145) Potassium Level 4.5 mmol/L (3.5-5.1) Chloride Level 97 mmol/L (98-107) Carbon Dioxide Level 27 mmol/L (21-32) Anion Gap 13 (6-14) Blood Urea Nitrogen 43 mg/dL (7-20) Creatinine 6.2 mg/dL (0.6-1.0) Estimated GFR (Cockcroft-Gault) 9.5 Glucose Level 179 mg/dL (70-99) Calcium Level 9.8 mg/dL (8.5-10.1) Physical Exam: Physical Exam: Gen:NAD Abd:LLQ Tenderness Assessment & Plan: Assessment : 1) LLQ pain 2) N/V 3) Gastroparesis Plan: Agree with abdominal imaging Justicifation of Admission Dx: Justifications for Admission: Justification of Admission Dx: N/A ANDREI FREEMAN MD May 17, 2020 14:57
[2020-05-17] MEDS ORDERED: HYDROmorphone 2 MG/ML VIAL IVP PRN (16:00)
[2020-05-17] MEDS ORDERED: traMADol 50 MG TABLET PO PRN (16:30)
--- NOTE | 2020-05-17 16:55 | NUR ---
Patient is refusing to wear her telemetry, patient states it makes her itch because she is allergic to the adhesives. Patient is also non-compliant with doctors orders. Patient was told she can have clear liquids and states she cannot just have clears, she was a regular meal. This RN said I can only go by the doctors orders, patient then stated she was going to call someone to bring her some food from outside.
[2020-05-17] MEDS ORDERED: INSULIN GLARGINE SYRINGE. SQ SCH (21:00)
[2020-05-17] MEDS: PATCH REMOVAL. MC SCH (21:00)
--- NOTE | 2020-05-17 21:02 | RAD ---
Pelvic ultrasound to include transabdominal and transvaginal imaging 05/17/2020 CLINICAL HISTORY: Left pelvic pain. TECHNIQUE: Using the distended urinary bladder as a sonographic window, a real-time ultrasound examination of the pelvis was performed. Additionally in an attempt to better evaluate the uterus and adnexa, a transvaginal ultrasound study was performed. Multiple images were obtained. FINDINGS: Comparison is made to the patient's CT scan of the abdomen and pelvis dated 05/15/2020. The uterus is retroverted. It measures 6.8 x 4.9 x 3.5 cm in longitudinal, transverse, and AP dimensions. The endometrial echo complex measures 4 mm in thickness which is within normal limits. Both ovaries are within normal limits in size and echogenicity. The right ovary measures 2.9 x 2.9 x 2.0 cm in size. The left ovary measures 3.0 x 1.3 x 3.2 cm in size. No adnexal mass is seen. No free fluid is noted. Normal color-flow and pulse Doppler imaging to both ovaries is seen. IMPRESSION: Negative study. Electronically signed by: Henrique Peña MD (05/17/2020 8:58 PM) [id number]
--- NOTE | 2020-05-17 22:51 | NUR ---
Pt refusing tele. Claimed the adhesives make her itch.
[2020-05-18] MEDS: HYDROmorphone 2 MG/ML VIAL IVP PRN ×2 (01:18→08:46)
[2020-05-18 03:17] VITALS: BP 112/65
[2020-05-18 07:00] VITALS: BP 164/74
[2020-05-18] MEDS: PANTOPRAZOLE 40 MG TABLET.DR. PO SCH (07:09)
[2020-05-18] MEDS: INSULIN LISPRO 300 UNITS/3 ML VIAL. SQ SCH ×4 (07:52→12:00)
[2020-05-18] MEDS: CARVEDILOL 12.5 MG TABLET. PO SCH (08:44)
[2020-05-18] MEDS: amLODIPine BESYLATE 10 MG TABLET PO SCH (08:44)
[2020-05-18] MEDS: LIDOCAINE (700MG/PATCH) PATCH. TD SCH (08:45)
[2020-05-18] MEDS: POLYETHYLENE GLYCOL 3350 17 GM PACKET. PO SCH (08:45)
[2020-05-18] MEDS: HEPARIN for SUB-Q USE 5,000 UNIT/ML VIAL. SQ SCH (08:53)
--- NOTE | 2020-05-18 09:32 | PDOC ---
[facility] PROGRESS NOTE Date of Service DOS: DATE: 05/18/20 TIME: 09:27 Chief Complaint Chief Complaint Diabetic gastroparesis Cannabis hyperemesis End-stage renal disease on hemodialysis Intractable abdominal pain Intractable nausea/vomiting Hypertensive emergency FEN - NPO PPX - Heparin FULL CODE Dispo - ICU for hypertensive emergency History of Present Illness History of Present Illness Ms Lynch is a 34-year-old female w/ PMHx ESRD on HD TuThSa, Type 1 diabetes, gastroparesis, who presents with complaint of abdominal pain. Patient reports left lower quadrant abdominal pain that is sharp and cramping in nature, 10/10 at worst. She admits to some associated vomiting, and is unsure of her last bowel movement. Further history is unable to obtain as patient is somewhat of a poor historian. Upon admission patient was noted to have systolic blood pressure >200 mmHg. She was started on nicardipine drip and transferred to the ICU for monitoring. Temp 98.2, pulse 90, BP 227/110 WBC 10.8, BUN 18, Cr 4.4 UA (05/08/20): Trace leukocyte esterase, negative nitrites, WBC 14, few squamous cells. 05/17 Seen on dialysis in ICU. BP came down overnight. Still with left lower quadrant pain that radiates into the back. She does trink menses are irregular for the last month. Her period was late last month 04/24/2020. She is not sexually active. Still with nausea. Did have a bowel movement in the ED but none since. Passing flatus. Glucose in 100s. 05/18 Abdominal ultrasound negative for ovarian torsion. Abdominal pain improved. She has had a bowel movement today and yesterday. Patient is requesting food, will discharge if tolerating. Plan: Pelvic ultrasound negative for torsion. Pain likely due to gastroparesis, constipation. Clear liquid diet advance as tolerated. Pain management Vitals/I&O Vitals/I&O: Vital Signs Date Time Temp Pulse Resp B/P (MAP) Pulse Ox O2 Delivery O2 Flow Rate FiO2 05/18/20 08:46 Room Air 05/18/20 08:44 64 164/74 05/18/20 07:00 97.4 18 96 97.4 I & O 05/17/20 05/17/20 05/18/20 14:59 22:59 06:59 Intake Total 50 ml Balance 50 ml Physical Exam General: Alert, Oriented X3, Cooperative, No acute distress Heart: Regular rate, Normal S1, Normal S2, No murmurs, Gallops Lungs: Clear Abdomen: Normal bowel sounds, Soft, No tenderness, No hepatosplenomegaly, No masses Extremities: No clubbing, No cyanosis, No edema, Normal pulses, No tenderness/swelling Skin: No breakdown Labs Labs: Laboratory Tests Test 05/17/20 12:03 05/17/20 15:36 05/17/20 17:17 05/17/20 21:14 Glucose (Fingerstick) 86 mg/dL (70-99) 172 mg/dL (70-99) 125 mg/dL (70-99) 228 mg/dL (70-99) Test 05/18/20 07:45 Glucose (Fingerstick) 109 mg/dL (70-99) Review of Systems Review of Systems: Abdominal pain. Denies fever. All other systems negative. Assessment and Plan Assessmemt and Plan Problems Medical Problems: (1) End stage renal disease Status: Acute (2) Intractable abdominal pain Status: Acute (3) Intractable vomiting Status: Acute Comment Review of Relevant I have reviewed the following items mine (where applicable) has been applied. Medications: Current Medications Medications (Trade) Dose Ordered Sig/Brown Route PRN Reason Start Time Stop Time Status Last Admin Dose Admin Hydromorphone HCl (Dilaudid) 0.5 mg PRN Q8HRS PRN IVP PAIN 05/17/20 16:00 05/17/20 16:23 DC 05/17/20 12:59 Insulin Glargine (Lantus Syringe) 10 unit QHS SQ 05/17/20 21:00 05/17/20 22:00 Diphenhydramine HCl (Benadryl) 25 mg 1X PRN PRN IV ITCHING 05/17/20 10:15 05/18/20 10:14 05/17/20 10:25 Hydromorphone HCl (Dilaudid) 0.5 mg PRN Q6HRS PRN IVP MODERATE TO SEVERE PAIN 05/17/20 16:30 05/18/20 08:46 Tramadol HCl (Ultram) 50 mg PRN Q6HRS PRN PO MILD TO MODERATE PAIN 05/17/20 16:30 9/19/20 22:14 Justifications for Admission Other Justification Intractable abdominal pain CELI HOUSE MD May 18, 2020 09:32
[2020-05-18 11:00] VITALS: BP 136/86
[2020-05-18 12:31] LABS: BASO # 0.1 x10^3/uL (0.0-0.2); BASO % 1 % (0-3); EOS # 0.1 x10^3/uL (0.0-0.7); EOS % 2 % (0-3); HEMOGLOBIN 11.4 g/dL (12.0-15.5); LYMPH # 2.8 x10^3/uL (1.0-4.8); LYMPH % 38 % (24-48); MEAN CORPUSCULAR HEMOGLOBIN 31 pg (25-35); MEAN CORPUSCULAR HGB CONC 34 g/dL (31-37); MEAN CORPUSCULAR VOLUME 93 fL (79-100); MONO # 0.8 x10^3/uL (0.0-1.1); MONO % 10 % (0-9); NEUT # 3.6 x10^3/uL (1.8-7.7); NEUT % 49 % (31-73); PLATELET COUNT 231 x10^3/uL (140-400); RED BLOOD COUNT 3.65 x10^6/uL (3.50-5.40); RED CELL DISTRIBUTION WIDTH 16.1 % (11.5-14.5); WHITE BLOOD COUNT 7.4 x10^3/uL (4.0-11.0)
--- NOTE | 2020-05-18 13:22 | PDOC3 ---
Discharge Summary Visit Information Date of Admission: May 15, 2020 Date of Discharge: May 18, 2020 Final Diagnosis Problems Medical Problems: (1) End stage renal disease Status: Acute (2) Intractable abdominal pain Status: Acute (3) Intractable vomiting Status: Acute Brief Hospital Course Allergies Allergies Coded Allergies Type Severity Reaction Last Updated Verified ondansetron Allergy Severe edema 07/12/19 Yes ketorolac Allergy Intermediate hives 07/12/19 Yes morphine Allergy Intermediate hives 05/16/20 Yes Vital Signs Vital Signs Date Time Temp Pulse Resp B/P (MAP) Pulse Ox O2 Delivery O2 Flow Rate FiO2 05/18/20 11:00 98.1 72 18 136/86 (103) 98 Room Air 98.1 Lab Results Laboratory Tests Test 05/16/20 17:11 05/17/20 05:00 05/17/20 12:03 05/17/20 15:36 Glucose (Fingerstick) 173 mg/dL (70-99) 86 mg/dL (70-99) 172 mg/dL (70-99) White Blood Count 12.8 x10^3/uL (4.0-11.0) Red Blood Count 3.67 x10^6/uL (3.50-5.40) Hemoglobin 11.3 g/dL (12.0-15.5) Hematocrit 34.0 % (36.0-47.0) Mean Corpuscular Volume 93 fL (79-100) Mean Corpuscular Hemoglobin 31 pg (25-35) Mean Corpuscular Hemoglobin Concent 33 g/dL (31-37) Red Cell Distribution Width 15.9 % (11.5-14.5) Platelet Count 262 x10^3/uL (140-400) Neutrophils (%) (Auto) 73 % (31-73) Lymphocytes (%) (Auto) 17 % (24-48) Monocytes (%) (Auto) 9 % (0-9) Eosinophils (%) (Auto) 0 % (0-3) Basophils (%) (Auto) 1 % (0-3) Neutrophils # (Auto) 9.4 x10^3/uL (1.8-7.7) Lymphocytes # (Auto) 2.1 x10^3/uL (1.0-4.8) Monocytes # (Auto) 1.2 x10^3/uL (0.0-1.1) Eosinophils # (Auto) 0.0 x10^3/uL (0.0-0.7) Basophils # (Auto) 0.1 x10^3/uL (0.0-0.2) Sodium Level 137 mmol/L (136-145) Potassium Level 4.5 mmol/L (3.5-5.1) Chloride Level 97 mmol/L (98-107) Carbon Dioxide Level 27 mmol/L (21-32) Anion Gap 13 (6-14) Blood Urea Nitrogen 43 mg/dL (7-20) Creatinine 6.2 mg/dL (0.6-1.0) Estimated GFR (Cockcroft-Gault) 9.5 Glucose Level 179 mg/dL (70-99) Calcium Level 9.8 mg/dL (8.5-10.1) Test 05/17/20 17:17 05/17/20 21:14 05/18/20 07:45 05/18/20 11:56 Glucose (Fingerstick) 125 mg/dL (70-99) 228 mg/dL (70-99) 109 mg/dL (70-99) 124 mg/dL (70-99) Test 05/18/20 12:15 White Blood Count 7.4 x10^3/uL (4.0-11.0) Red Blood Count 3.65 x10^6/uL (3.50-5.40) Hemoglobin 11.4 g/dL (12.0-15.5) Hematocrit 34.0 % (36.0-47.0) Mean Corpuscular Volume 93 fL (79-100) Mean Corpuscular Hemoglobin 31 pg (25-35) Mean Corpuscular Hemoglobin Concent 34 g/dL (31-37) Red Cell Distribution Width 16.1 % (11.5-14.5) Platelet Count 231 x10^3/uL (140-400) Neutrophils (%) (Auto) 49 % (31-73) Lymphocytes (%) (Auto) 38 % (24-48) Monocytes (%) (Auto) 10 % (0-9) Eosinophils (%) (Auto) 2 % (0-3) Basophils (%) (Auto) 1 % (0-3) Neutrophils # (Auto) 3.6 x10^3/uL (1.8-7.7) Lymphocytes # (Auto) 2.8 x10^3/uL (1.0-4.8) Monocytes # (Auto) 0.8 x10^3/uL (0.0-1.1) Eosinophils # (Auto) 0.1 x10^3/uL (0.0-0.7) Basophils # (Auto) 0.1 x10^3/uL (0.0-0.2) Laboratory Tests Test 05/17/20 15:36 05/17/20 17:17 05/17/20 21:14 05/18/20 07:45 Glucose (Fingerstick) 172 mg/dL (70-99) 125 mg/dL (70-99) 228 mg/dL (70-99) 109 mg/dL (70-99) Test 05/18/20 11:56 05/18/20 12:15 Glucose (Fingerstick) 124 mg/dL (70-99) White Blood Count 7.4 x10^3/uL (4.0-11.0) Red Blood Count 3.65 x10^6/uL (3.50-5.40) Hemoglobin 11.4 g/dL (12.0-15.5) Hematocrit 34.0 % (36.0-47.0) Mean Corpuscular Volume 93 fL (79-100) Mean Corpuscular Hemoglobin 31 pg (25-35) Mean Corpuscular Hemoglobin Concent 34 g/dL (31-37) Red Cell Distribution Width 16.1 % (11.5-14.5) Platelet Count 231 x10^3/uL (140-400) Neutrophils (%) (Auto) 49 % (31-73) Lymphocytes (%) (Auto) 38 % (24-48) Monocytes (%) (Auto) 10 % (0-9) Eosinophils (%) (Auto) 2 % (0-3) Basophils (%) (Auto) 1 % (0-3) Neutrophils # (Auto) 3.6 x10^3/uL (1.8-7.7) Lymphocytes # (Auto) 2.8 x10^3/uL (1.0-4.8) Monocytes # (Auto) 0.8 x10^3/uL (0.0-1.1) Eosinophils # (Auto) 0.1 x10^3/uL (0.0-0.7) Basophils # (Auto) 0.1 x10^3/uL (0.0-0.2) Brief Hospital Course Ms. Lynch is a 34 old female who presented with abdominal pain secondary to gastroparesis. Her course was complicated by malignant hypertension, requiring IV nicardipine. Transabdominal ultrasound showed normal ovaries. She was treated with metoclopramide and pain management, with improvement of symptoms. On the day of discharge she tolerated full diet without abdominal pain or vomiting. Discharge Information Condition at Discharge: Improved Disposition/Orders: D/C to Home Scheduled Amlodipine Besylate (Amlodipine Besylate) 10 Mg Tablet, 10 MG PO DAILY for HTN, (Reported) Entered as Reported by: DIOMEDES MARTINEZ on 07/09/19 1414 Last Action: Continued on 05/16/20799 by CELI HOUSE MD Carvedilol (Carvedilol) 25 Mg Tablet, 25 MG PO BIDWMEALS for CARDIAC, (Reported) Entered as Reported by: BIA SARAVIA on 07/08/19328 Last Action: Converted on 05/16/20799 by CELI HOUSE MD Doxylamine/Pyridoxine Hcl (Diclegis Dr 10-10 Mg Tablet) 1 Each Tablet.dr, 2 TAB PO QHS for 7 Days, #14 Ref 0 Prescribed by: MANJEET LONG on 05/09/20 0047 Last Action: HELD on 05/16/20799 by CELI HOUSE MD Hydralazine Hcl (Hydralazine Hcl) 50 Mg Tablet, 1 TAB PO TID for HTN, #90 Ref 5 (Reported) Entered as Reported by: BIA SARAVIA on 07/08/19328 Last Action: Continued on 05/16/20799 by CELI HOUSE MD Insulin Aspart (Novolog) 100 Unit/1 Ml Cartridge, 4 UNIT SQ TID, (Reported) Entered as Reported by: CLAU BIANCHI on 06/22/14 1400 Last Action: Converted on 05/16/20799 by CELI HOUSE MD Lidocaine (Lidocaine PATCH ) 1 Each Adh..patch, 1 PATCH TD DAILY for neuropathic back pain for 30 Days, #30 Prescribed by: MARIAH CAMPBELL MD on 07/12/19 1321 Last Action: Continued on 05/16/20799 by CELI HOUSE MD Pantoprazole Sodium (Pantoprazole Sodium ) 40 Mg Tablet.dr, 1 TAB PO DAILY, #30 Ref 3 (Reported) Entered as Reported by: CLAU BIANCHI on 06/22/14 1400 Last Action: Continued on 05/16/20799 by CELI HOUSE MD Polyethylene Glycol 3350 (Miralax) 17 Gm Powd.pack, 1 PACKET PO BID, #30 Ref 3 (Reported) Entered as Reported by: CLAU BIANCHI on 06/22/14 1400 Last Action: Continued on 05/16/20799 by CELI HOUSE MD Promethazine Hcl (Promethazine Hcl) 25 Mg Tablet, 1 TAB PO PRN Q6HRS, #20 (Reported) Entered as Reported by: CLAU BIANCHI on 06/22/14 1400 Last Action: Converted on 05/16/20799 by CELI HOUSE MD Scopolamine (Transderm-Scop) 1 Each Patch.td72, 1 PATCH TD Q3DAYS@0700 for DIRECTED for 10 Days, #3 Prescribed by: GINA PIÑA MD on 03/14/201057 Last Action: Continued on 05/16/20799 by CELI HOUSE MD Scheduled PRN Acetaminophen (Acetaminophen Supp) 650 Mg Supp.rect, 650 MG NH PRN Q4HRS PRN for TEMP OVER 100.4F OR MILD PAIN for 30 Days, #60 Prescribed by: GINA PIÑA MD on 03/14/201057 Last Action: Continued on 05/16/20799 by CELI HOUSE MD Albuterol Sulfate (Proair Hfa) 8.5 Gm Hfa.aer.ad, 2.5 MG NEB PRN Q4HRS PRN for SHORTNESS OF BREATH for 30 Days, #2 Prescribed by: GINA PIÑA MD on 03/14/201057 Last Action: Continued on 05/16/20799 by CELI HOUSE MD Bisacodyl (Bisacodyl) 5 Mg Tablet.dr, 5 MG PO PRN DAILY PRN for CONSTIPATION for 30 Days, #60 Prescribed by: GINA PIÑA MD on 03/14/201057 Last Action: Continued on 05/16/20799 by CELI HOUSE MD Hydrocortisone Acetate (Anti-Itch) 28 Gm Oint...g., 1 LYSSA TP PRN Q2HRS PRN for ITCHING for 10 Days, #30 Prescribed by: GINA PIÑA MD on 03/14/20 1058 Last Action: Continued on 05/16/20 0800 by CELI HOUSE MD Metoclopramide Hcl (Reglan) 10 Mg Tablet, 1 TAB PO QID PRN for NAUSEA/VOMITING for 5 Days, #20 Ref 0 before food and bedtime Prescribed by: ARABELLA العلي D.O. on 01/10/20 0123 Last Action: HELD on 05/16/20 0800 by CELI HOUSE MD Promethazine Hcl (Promethazine Hcl) 25 Mg Supp.rect, 25 MG RC Q6H PRN for NAUSEA/VOMITING, #10 Ref 0 Prescribed by: BEENA DUNN APRN on 05/08/20 1716 Last Action: Continued on 05/16/20 0800 by CELI HOUSE MD Justicifation of Admission Dx: Justifications for Admission: Justification of Admission Dx: N/A CELI HOUSE MD May 18, 2020 13:22
[2020-05-18 14:10] VITALS: BP 134/79
--- NOTE | 2020-05-18 15:14 | NUR ---
Discharge Note: JOSIAH CALZADA N[facility] Discharge instructions and discharge home medications reviewed with Patient and a copy given. All questions have been answered and understanding verbalized. The following instructions and handouts were given: patient visit report, medication information, education. Discontinued lines and drains: peripheral IV, tip intact. Patient discharged to home with self care via private vehicle. Patient left unit awake, in stable condition, with all personal belongings.
== END 2020-05-18 14:20 | disposition home or self-care (01) | DRG 73 ==
LOC: ER 19:32 → ED HOLD 21:15 → 5 NORTH 05-16 02:18 → 1 WEST ICU 05-16 14:41 → 5 NORTH 05-17 12:36
PROVIDERS: ADMIT Internal Medicine; ATTEND Internal Medicine
DX: E10.43 Type 1 diabetes mellitus with diabetic autonomic (poly)neuropathy (principal); N18.6 End stage renal disease; I16.1 Hypertensive emergency; J98.11 Atelectasis; I12.0 Hypertensive chronic kidney disease with stage 5 chronic kidney disease or end stage renal disease; K21.9 Gastro-esophageal reflux disease without esophagitis; F41.9 Anxiety disorder, unspecified; F32.9 Major depressive disorder, single episode, unspecified; F17.210 Nicotine dependence, cigarettes, uncomplicated; E10.22 Type 1 diabetes mellitus with diabetic chronic kidney disease; E78.5 Hyperlipidemia, unspecified; D35.02 Benign neoplasm of left adrenal gland; K31.84 Gastroparesis; Z99.2 Dependence on renal dialysis; Z90.49 Acquired absence of other specified parts of digestive tract; Z90.710 Acquired absence of both cervix and uterus; Z88.5 Allergy status to narcotic agent; Z88.8 Allergy status to other drugs, medicaments and biological substances; Z79.4 Long term (current) use of insulin; Z79.899 Other long term (current) drug therapy; Z82.49 Family history of ischemic heart disease and other diseases of the circulatory system
CPT/HCPCS: 36415; 71045; 74018; 74176; 76856; 80048; 80053; 82533; 82962; 83690; 84484; 85025; 85610; 86140; 93005; 96374; 96375; 96376; 99285; J0360; J0780; J1170; J1200; J1630; J1644; J1815; J2765; J2920; J3010; J3490; G0378; Q0169

== ENCOUNTER 2020-06-07 20:03 | Emergency (ER) | payer OTHER ==
[~2020-06-07] VITALS: Ht 167.6 cm; Wt 59.1 kg
[~2020-06-07 20:03] MED LIST changes: +AMLO-187 PO; -AMLO10TA8 PO; -PROM25SU3 PR; +PROM25SU4 PR
[2020-06-07] MEDS ORDERED: PROCHLORPERAZINE 10 MG/2 ML VIAL. IV ONE (20:45)
[2020-06-07] MEDS ORDERED: diphenhydrAMINE 50 MG/ML VIAL IVP ONE (20:45)
[2020-06-07] MEDS ORDERED: METOCLOPRAMIDE HCL 10 MG/2 ML VIAL. IVP ONE (20:45)
[2020-06-07] MEDS ORDERED: FAMOTIDINE 20 MG/2 ML VIAL IVP ONE (20:45)
[2020-06-07] MEDS ORDERED: IV NORMAL SALINE 500ML BAG 500 ML IV ONE (20:45)
[2020-06-07] MEDS ORDERED: diphenhydrAMINE 50 MG/ML VIAL IM ONE (21:00)
[2020-06-07 21:12] LABS: BASO # 0.1 x10^3/uL (0.0-0.2); BASO % 2 % (0-3); EOS # 0.1 x10^3/uL (0.0-0.7); EOS % 2 % (0-3); HEMATOCRIT 37.8 % (36.0-47.0); LYMPH # 2.1 x10^3/uL (1.0-4.8); LYMPH % 28 % (24-48); MEAN CORPUSCULAR HEMOGLOBIN 31 pg (25-35); MEAN CORPUSCULAR HGB CONC 34 g/dL (31-37); MEAN CORPUSCULAR VOLUME 91 fL (79-100); MONO # 0.5 x10^3/uL (0.0-1.1); MONO % 7 % (0-9); NEUT # 4.7 x10^3/uL (1.8-7.7); NEUT % 62 % (31-73); PLATELET COUNT 311 x10^3/uL (140-400); RED BLOOD COUNT 4.15 x10^6/uL (3.50-5.40); RED CELL DISTRIBUTION WIDTH 15.4 % (11.5-14.5); WHITE BLOOD COUNT 7.5 x10^3/uL (4.0-11.0)
[2020-06-07 21:23] LABS: CALCIUM 10.8 mg/dL (8.5-10.1); CREATININE 4.1 mg/dL (0.6-1.0); GFR 15.3; POTASSIUM 3.3 mmol/L (3.5-5.1)
[2020-06-07 21:29] LABS: ALBUMIN 4.7 g/dL (3.4-5.0); MAGNESIUM 2.2 mg/dL (1.8-2.4); TOTAL BILIRUBIN 0.5 mg/dL (0.2-1.0); TOTAL PROTEIN 9.2 g/dL (6.4-8.2)
[2020-06-07] MEDS ORDERED: HYOS0.1265 SL (21:57)
[2020-06-07] MEDS ORDERED: PROM50SU7 RC (21:57)
--- NOTE | 2020-06-07 21:57 | PHYS DOC ---
Past Medical History Past Medical History: Diabetes-Type I, Hypertension, Kidney Infection, Pancreatitis, Renal Failure, Other Additional Past Medical Histor: GASTROPERESIS,DIALYSIS,SM BOWEL OBSTRUCTION Past Surgical History: Cholecystectomy, , Tubal ligation, Other Additional Past Surgical Histo: FISTULA LEFT ARM, SHUNT RIGHT CHEST Smoking Status: Current Every Day Smoker Alcohol Use: None Drug Use: None General Adult EDM: Chief Complaint: ABDOMINAL PAIN HPI: HPI: Patient is a 34 year old [f__sex] who presents with [] Review of Systems: Review of Systems: Constitutional: Denies fever or chills. [] Eyes: Denies change in visual acuity. [] HENT: Denies nasal congestion or sore throat. [] Respiratory: Denies cough or shortness of breath. [] Cardiovascular: Denies chest pain or edema. [] GI: Denies abdominal pain, nausea, vomiting, bloody stools or diarrhea. [] : Denies dysuria. [] Musculoskeletal: Denies back pain or joint pain. [] Integument: Denies rash. [] Neurologic: Denies headache, focal weakness or sensory changes. [] Endocrine: Denies polyuria or polydipsia. [] Lymphatic: Denies swollen glands. [] Psychiatric: Denies depression or anxiety. [] Heart Score: Risk Factors: Risk Factors: DM, Current or recent (<one month) smoker, HTN, HLP, family history of CAD, obesity. Risk Scores: Score 0 - 3: 2.5% MACE over next 6 weeks - Discharge Home Score 4 - 6: 20.3% MACE over next 6 weeks - Admit for Clinical Observation Score 7 - 10: 72.7% MACE over next 6 weeks - Early Invasive Strategies Current Medications: Current Medications Medications (Trade) Dose Ordered Sig/Brown Start Time Stop Time Status Last Admin Dose Admin Diphenhydramine HCl (Benadryl) 50 mg 1X ONCE 06/07/20 21:00 06/07/20 21:01 DC 06/07/20 20:59 50 MG Famotidine (Pepcid Vial) 20 mg 1X ONCE 06/07/20 20:45 06/07/20 20:46 DC 06/07/20 20:46 20 MG Fentanyl Citrate (Fentanyl 2ml Vial) 75 mcg 1X ONCE 06/07/20 22:00 06/07/20 22:01 UNV Metoclopramide HCl (Reglan Vial) 10 mg 1X ONCE 06/07/20 20:45 06/07/20 20:39 DC Prochlorperazine Edisylate (Compazine) 10 mg 1X ONCE 06/07/20 20:45 06/07/20 20:46 DC 06/07/20 20:45 10 MG Sodium Chloride 500 ml @ 500 mls/hr 1X ONCE 06/07/20 20:45 06/07/20 20:54 DC 06/07/20 20:45 500 MLS/HR Allergies: Allergies: Allergies Coded Allergies Type Severity Reaction Last Updated Verified ondansetron Allergy Severe edema 07/12/19 Yes ketorolac Allergy Intermediate hives 07/12/19 Yes morphine Allergy Intermediate hives 05/16/20 Yes Physical Exam: PE: Constitutional: Well developed, well nourished, no acute distress, non-toxic appearance. [] HENT: Normocephalic, atraumatic, bilateral external ears normal, oropharynx moist, no oral exudates, nose normal. [] Eyes: PERRLA, EOMI, conjunctiva normal, no discharge. [] Neck: Normal range of motion, no tenderness, supple, no stridor. [] Cardiovascular:Heart rate regular rhythm, no murmur [] Lungs & Thorax: Bilateral breath sounds clear to auscultation [] Abdomen: Bowel sounds normal, soft, no tenderness, no masses, no pulsatile masses. [] Skin: Warm, dry, no erythema, no rash. [] Back: No tenderness, no CVA tenderness. [] Extremities: No tenderness, no cyanosis, no clubbing, ROM intact, no edema. [] Neurologic: Alert and oriented X 3, normal motor function, normal sensory function, no focal deficits noted. [] Psychologic: Affect normal, judgement normal, mood normal. [] Current Patient Data: Labs: Laboratory Tests Test 06/07/20 21:00 White Blood Count 7.5 x10^3/uL (4.0-11.0) Red Blood Count 4.15 x10^6/uL (3.50-5.40) Hemoglobin 13.0 g/dL (12.0-15.5) Hematocrit 37.8 % (36.0-47.0) Mean Corpuscular Volume 91 fL (79-100) Mean Corpuscular Hemoglobin 31 pg (25-35) Mean Corpuscular Hemoglobin Concent 34 g/dL (31-37) Red Cell Distribution Width 15.4 % (11.5-14.5) H Platelet Count 311 x10^3/uL (140-400) Neutrophils (%) (Auto) 62 % (31-73) Lymphocytes (%) (Auto) 28 % (24-48) Monocytes (%) (Auto) 7 % (0-9) Eosinophils (%) (Auto) 2 % (0-3) Basophils (%) (Auto) 2 % (0-3) Neutrophils # (Auto) 4.7 x10^3/uL (1.8-7.7) Lymphocytes # (Auto) 2.1 x10^3/uL (1.0-4.8) Monocytes # (Auto) 0.5 x10^3/uL (0.0-1.1) Eosinophils # (Auto) 0.1 x10^3/uL (0.0-0.7) Basophils # (Auto) 0.1 x10^3/uL (0.0-0.2) Sodium Level 139 mmol/L (136-145) Potassium Level 3.3 mmol/L (3.5-5.1) L Chloride Level 97 mmol/L (98-107) L Carbon Dioxide Level 32 mmol/L (21-32) Anion Gap 10 (6-14) Blood Urea Nitrogen 16 mg/dL (7-20) Creatinine 4.1 mg/dL (0.6-1.0) H Estimated GFR (Cockcroft-Gault) 15.3 BUN/Creatinine Ratio 4 (6-20) L Glucose Level 165 mg/dL (70-99) H Calcium Level 10.8 mg/dL (8.5-10.1) H Magnesium Level 2.2 mg/dL (1.8-2.4) Total Bilirubin 0.5 mg/dL (0.2-1.0) Aspartate Amino Transferase (AST) 12 U/L (15-37) L Alanine Aminotransferase (ALT) 13 U/L (14-59) L Alkaline Phosphatase 128 U/L (46-116) H Total Protein 9.2 g/dL (6.4-8.2) H Albumin 4.7 g/dL (3.4-5.0) Albumin/Globulin Ratio 1.0 (1.0-1.7) Lipase 357 U/L (73-393) Ethyl Alcohol Level < 10 mg/dL (0-10) Laboratory Tests 06/07/20 21:00 Laboratory Tests 06/07/20 21:00 Vital Signs: Vital Signs Date Time Temp Pulse Resp B/P (MAP) Pulse Ox O2 Delivery O2 Flow Rate FiO2 06/07/20 20:15 97.4 93 24 154/87 (109) 98 Room Air 97.4 EKG: EKG: [] Radiology/Procedures: Radiology/Procedures: [] Course & Med Decision Making: Course & Med Decision Making Pertinent Labs and Imaging studies reviewed. (See chart for details) [] Dragon Disclaimer: Dragon Disclaimer: This electronic medical record was generated, in whole or in part, using a voice recognition dictation system. Departure Departure Impression: Primary Impression: Chronic abdominal pain Additional Impression: Nausea & vomiting Qualified Codes: R11.2 - Nausea with vomiting, unspecified Disposition: 01 DC HOME SELF CARE/HOMELESS Condition: STABLE Referrals: YASMANY CHISHOLM (PCP) Patient Instructions: Chronic Pain, Chronic Pain Management, Cyclic Vomiting Syndrome, Nausea and Vomiting, [id number] Scripts Promethazine HCl (Promethazine HCl) 50 Mg Supp.rect 50 MG RC Q8HRS PRN for NAUSEA, #10 SUPP.RECT Prov: LYLY ART DO 06/07/20 Hyoscyamine Sulfate (LEVSIN-SL) 0.125 Mg Tab.subl 0.125 MG SL Q4-6HRS PRN for PAIN, #14 TAB Prov: LYLY ART DO 06/07/20 LYLY ART DO Jun 07, 2020 21:57
[2020-06-07 22:00] VITALS: BP 142/78
[2020-06-07 22:19] LABS: PREG TEST PT QUAL NEGATIVE (NEG)
[2020-06-07] MEDS ORDERED: fentaNYL PF VIAL 100 MCG/2 ML VIAL IM ONE (22:30)
[2020-06-08] MEDS ORDERED: FAMO-63 PO (02:54)
== END 2020-06-07 22:33 | disposition home or self-care (01) ==
LOC: ER 20:03
DX: G89.29 Other chronic pain (principal); R10.9 Unspecified abdominal pain; R11.2 Nausea with vomiting, unspecified; E10.9 Type 1 diabetes mellitus without complications; I10 Essential (primary) hypertension; N19 Unspecified kidney failure; K86.1 Other chronic pancreatitis; F17.200 Nicotine dependence, unspecified, uncomplicated; Z90.49 Acquired absence of other specified parts of digestive tract; Z98.51 Tubal ligation status; Z98.890 Other specified postprocedural states; Z88.6 Allergy status to analgesic agent; Z88.8 Allergy status to other drugs, medicaments and biological substances
CPT/HCPCS: 36415; 80053; 83690; 83735; 84703; 85025; 96361; 96372; 96374; 96375; 99284; G0480; J0780; J1200; J3010; J3490; J7040

== ENCOUNTER 2020-06-08 02:14 | Emergency (ER) | payer OTHER ==
[~2020-06-08] VITALS: Ht 167.6 cm; Wt 59.1 kg
[~2020-06-08 02:14] MED LIST changes: +PROM50SU7 RC
[2020-06-08 02:30] VITALS: BP 107/55
--- NOTE | 2020-06-08 02:38 | PHYS DOC ---
Past Medical History Past Medical History: Diabetes-Type I, Hypertension, Kidney Infection, Pa ncreatitis, Renal Failure, Other Additional Past Medical Histor: GASTROPERESIS,DIALYSIS,SM BOWEL OBSTRUCTION Past Surgical History: Cholecystectomy, , Tubal ligation, Other Additional Past Surgical Histo: FISTULA LEFT ARM, SHUNT RIGHT CHEST Smoking Status: Current Every Day Smoker Alcohol Use: None Drug Use: Marijuana General Adult EDM: Chief Complaint: NAUSEA/VOMITING/DIARRHA HPI: HPI: Patient is a 34 year old female presents with report of back pain which started this evening. Patient had been seen earlier this evening for intractable nausea and vomiting along with chronic abdominal pain. Patient had requested Dilaudid. Labs had previously been obtained without acute finding. Patient reports history of gastroparesis. Method CRM reviewed noted patient also with history of marijuana abuse. Patient has been seen in the emergency department and sometimes admitted multiple times for her chronic pain. Mother reports patient gets worse after receiving dialysis. Patient had received dialysis earlier yesterday. Review of Systems: Review of Systems: Constitutional: Denies fever or chills Eyes: Denies redness or eye pain HENT: Denies nasal congestion or sore throat Respiratory: Denies cough or shortness of breath Cardiovascular: Denies chest pain or palpitations GI: Reports abdominal pain; denies nausea or vomiting : Denies dysuria or hematuria Musculoskeletal: Reports back pain; denies joint pain Integument: Denies rash or skin lesions Neurologic: Denies headache, focal weakness or sensory changes Complete systems were reviewed and found to be within normal limits, except as documented in this note. Current Medications: Current Medications Medications (Trade) Dose Ordered Sig/[facility] Start Time Stop Time Status Last Admin Dose Admin Multi-Ingredient Mouthwash/Gargle (Gi Cocktail) 20 ml 1X ONCE 06/08/20 03:00 06/08/20 03:01 Ziprasidone (Geodon Im) 10 mg 1X ONCE 06/08/20 03:00 06/08/20 03:01 Allergies: Allergies: Allergies Coded Allergies Type Severity Reaction Last Updated Verified ondansetron Allergy Severe edema 07/12/19 Yes ketorolac Allergy Intermediate hives 07/12/19 Yes morphine Allergy Intermediate hives 05/16/20 Yes Physical Exam: PE: Constitutional: Well developed, thin, histrionic, rocking back and forth HENT: Normocephalic, atraumatic Eyes: Conjunctiva normal, no discharge Neck: Normal range of motion, supple Lungs & Thorax: No respiratory distress, equal chest rise and fall Abdomen: Soft, diffuse tenderness Skin: Warm, dry, no erythema, no rash Back: No midline tenderness, bilateral paraspinal lumbar tenderness Extremities: No tenderness, ROM intact, no edema Neurologic: Alert and oriented X 3, no focal deficits noted Psychologic: Affect anxious, judgment normal EKG: EKG: [] Radiology/Procedures: Radiology/Procedures: [] Course & Med Decision Making: Course & Med Decision Making 34-year-old female well-known to the emergency department for chronic abdominal pain and intractable nausea and vomiting presents for second visit this evening due to chronic pain. Patient now reporting her back is hurting. Patient had previously requested Dilaudid and when instructed she could not have Dilaudid she requested fentanyl. Patient had previously been given a one-time dose of fentanyl along with Compazine and Benadryl. Patient was prescribed Phenergan suppositories for home. Patient now reporting nausea and vomiting has resolved and she currently has back pain. No history of trauma. Patient was instructed we would not be providing narcotic pain medication at this time. Patient was given a GI cocktail. Concern for psychosomatic pain. IM Geodon therefore provided. Patient with interval improvement. Patient did reports some subsequent nausea. Phenergan suppository provided. Patient stable for discharge with outpatient follow-up with PCP/pain management. Discussed findings and plan with patient and family, who acknowledges understanding and agreement. Rebecca Disclaimer: Rebecca Disclaimer: This electronic medical record was generated, in whole or in part, using a voice recognition dictation system. Departure Departure Impression: Primary Impression: Chronic pain Qualified Codes: G89.29 - Other chronic pain Disposition: HOME SELF CARE/HOMELESS Condition: STABLE Referrals: YASMANY CHISHOLM (PCP) Patient Instructions: Chronic Pain, Chronic Pain Management Scripts Famotidine (PEPCID) 20 Mg Tablet 20 MG PO BID, #30 TAB Prov: LYLY ART DO 06/08/20 LYLY ART DO Jun 08, 2020 02:38
[2020-06-08] MEDS ORDERED: FAMO-63 PO (02:54)
[2020-06-08] MEDS ORDERED: LIDO:MAALOX 1:1 20 ML SINGLE DOSE. PO ONE (03:00)
[2020-06-08] MEDS ORDERED: ZIPRASIDONE IM 20 MG VIAL. IM ONE (03:00)
[2020-06-08] MEDS ORDERED: PROMETHAZINE 25 MG SUPP.RECT. PR ONE (03:00)
== END 2020-06-08 02:59 | disposition home or self-care (01) ==
LOC: ER 02:14
DX: G89.29 Other chronic pain (principal); R11.2 Nausea with vomiting, unspecified; M54.9 Dorsalgia, unspecified; E10.9 Type 1 diabetes mellitus without complications; I10 Essential (primary) hypertension; N19 Unspecified kidney failure; K86.1 Other chronic pancreatitis; F17.200 Nicotine dependence, unspecified, uncomplicated; F12.90 Cannabis use, unspecified, uncomplicated; Z90.49 Acquired absence of other specified parts of digestive tract; Z98.51 Tubal ligation status; Z98.890 Other specified postprocedural states
CPT/HCPCS: 96372; 99283; J3486

== ENCOUNTER 2020-08-16 19:54 | Emergency (ER) | payer OTHER ==
[~2020-08-16] VITALS: Ht 162.6 cm; Wt 52.7 kg
[~2020-08-16 19:54] MED LIST changes: +FAMO-63 PO
[2020-08-16] MEDS ORDERED: IV NORMAL SALINE 1000ML BAG 1,000 ML IV ONE (20:15)
[2020-08-16] MEDS ORDERED: HYDROmorphone 2 MG/ML VIAL ONE (20:18)
[2020-08-16] MEDS ORDERED: PROCHLORPERAZINE 10 MG/2 ML VIAL. ONE (20:18)
[2020-08-16] MEDS ORDERED: HYDROmorphone 2 MG/ML VIAL IVP ONE (20:30)
[2020-08-16] MEDS ORDERED: PROCHLORPERAZINE 10 MG/2 ML VIAL. IV ONE (20:30)
[2020-08-16 20:38] LABS: BASO # 0.1 x10^3/uL (0.0-0.2); BASO % 1 % (0-3); EOS # 0.1 x10^3/uL (0.0-0.7); EOS % 1 % (0-3); HEMOGLOBIN 15.6 g/dL (12.0-15.5); LYMPH # 2.5 x10^3/uL (1.0-4.8); LYMPH % 27 % (24-48); MEAN CORPUSCULAR HEMOGLOBIN 32 pg (25-35); MEAN CORPUSCULAR HGB CONC 35 g/dL (31-37); MEAN CORPUSCULAR VOLUME 92 fL (79-100); MONO # 0.5 x10^3/uL (0.0-1.1); MONO % 6 % (0-9); NEUT # 6.1 x10^3/uL (1.8-7.7); NEUT % 65 % (31-73); PLATELET COUNT 340 x10^3/uL (140-400); RED BLOOD COUNT 4.88 x10^6/uL (3.50-5.40); RED CELL DISTRIBUTION WIDTH 14.4 % (11.5-14.5); WHITE BLOOD COUNT 9.3 x10^3/uL (4.0-11.0)
[2020-08-16 21:00] LABS: GFR 12.1; POTASSIUM 3.4 mmol/L (3.5-5.1)
[2020-08-16 21:05] LABS: ALBUMIN 4.8 g/dL (3.4-5.0); ALBUMIN/GLOBULIN RATIO 0.9 (1.0-1.7); MAGNESIUM 2.5 mg/dL (1.8-2.4); TOTAL BILIRUBIN 0.4 mg/dL (0.2-1.0); TOTAL PROTEIN 10.3 g/dL (6.4-8.2)
--- NOTE | 2020-08-16 21:51 | RAD ---
Exam: CT of abdomen and pelvis without contrast INDICATION: Generalized abdominal pain TECHNIQUE: Sequential axial images through the abdomen and pelvis obtained without IV contrast. [place] and coronal reformatted images were reconstructed from the axial data and reviewed. Comparisons: 05/15/2020 FINDINGS: Heart size is normal. No pericardial effusion visualized lung bases are clear. No pleural effusion. Evaluation of solid organs is limited secondary to noncontrast technique. Liver, spleen, pancreas and adrenals are unremarkable. Gallbladder surgically absent. No perinephric inflammation or hydronephrosis. No renal or ureteral calculi are identified. Bladder is decompressed not well evaluated. Uterus not enlarged. No abnormal adnexal mass. Large amount stool is noted throughout the colon. Remainder of the large and small bowel are unremark able. No free intra-abdominal air or fluid. No obstruction. Abdominal aorta has a normal course and caliber. Abdominal vasculature is patent. No enlarged intra-abdominal lymph nodes are identified. No suspicious osseous lesions or acute fractures. IMPRESSION: Large amount stool in the colon, correlate for constipation. Exposure: One or more of the following in the visualized dose reduction techniques were utilized for this examination: 1. Automated exposure control 2. Adjustment of the MA and/or KV according to patient size 3. Use of iterative of reconstructive technique Electronically signed by: Debbie Harvey MD (08/16/2020 9:48 PM) [facility]
--- NOTE | 2020-08-16 22:07 | ED.ADGEN ---
Past Medical History Past Medical History: Cyclic Vomiting, Diabetes-Type I, Hypertension, Kidney Infection, Pancreatitis, Renal Failure, Other Additional Past Medical Histor: GASTROPERESIS,DIALYSIS,SM BOWEL OBSTRUCTION Past Surgical History: Cholecystectomy, , Tubal ligation, Other Additional Past Surgical Histo: FISTULA LEFT ARM, SHUNT RIGHT CHEST Smoking Status: Current Every Day Smoker Alcohol Use: None Drug Use: Marijuana General Adult EDM: Chief Complaint: ABDOMINAL PAIN HPI: HPI: Patient is a 34 year old AA female who presents to the emergency department today with complaints of diffuse abdominal pain, nausea, vomiting, and left- sided chest discomfort since 11:00 this morning. Patient states she was at dialysis this evening at approximately 1700 when her pain increased and she was unable to complete her full dialysis treatment today. Patient reports that she has vomited 5 times in the last 24 hours she denies any blood in her vomit. The patient denies any fever, cough, shortness of breath, diarrhea, bloody stools, back pain, body aches, or fatigue. She denies any diaphoresis with the chest pain. Patient states that she has not smoked marijuana in 3 weeks. She currently rates her discomfort a 10 out of 10 on the pain scale, she states that the pain is a constant sharp stabbing sensation. She denies any alleviating factors. Review of Systems: Review of Systems: Complete ROS is negative unless otherwise noted in HPI. Current Medications: Current Medications Medications (Trade) Dose Ordered Sig/[facility] Start Time Stop Time Status Last Admin Dose Admin Hydromorphone HCl (Dilaudid) 2 mg STK-MED ONCE 08/16/20 20:18 08/16/20 20:18 DC Prochlorperazine Edisylate (Compazine) 10 mg STK-MED ONCE 08/16/20 20:18 08/16/20 20:18 DC Promethazine HCl (Phenergan Supp) 25 mg 1X ONCE 08/16/20 23:30 08/16/20 23:31 08/16/20 22:57 25 MG Sodium Chloride 1,000 ml @ 1,000 mls/hr 1X ONCE 08/16/20 20:15 08/16/20 21:14 DC 08/16/20 20:35 1,000 MLS/HR Allergies: Allergies: Allergies Coded Allergies Type Severity Reaction Last Updated Verified ondansetron Allergy Severe edema 07/12/19 Yes ketorolac Allergy Intermediate hives 07/12/19 Yes morphine Allergy Intermediate hives 05/16/20 Yes Physical Exam: PE: See Above Constitutional: Well developed, well nourished, inconsolable moaning, non-toxic appearance. [] HENT: Normocephalic, atraumatic, bilateral external ears normal, nose normal. [] Eyes: PERRLA, EOMI, conjunctiva normal, no discharge. [] Neck: Normal range of motion, no stridor. [] Cardiovascular:Heart rate regular rhythm Lungs & Thorax: Respirations even and unlabored, no retractions, no respiratory distress, nontender to palpation Abdomen: soft, diffuse tenderness to palpation, no rebound tenderness, no guarding Skin: Warm, dry, no erythema, no rash. [] Extremities: No cyanosis, ROM intact, no edema. [] Neurologic: Alert and oriented X 3, no focal deficits noted. [] Psychologic: Affect normal, judgement normal, mood normal. [] Current Patient Data: Labs: Laboratory Tests Test 08/16/20 20:30 White Blood Count 9.3 x10^3/uL (4.0-11.0) Red Blood Count 4.88 x10^6/uL (3.50-5.40) Hemoglobin 15.6 g/dL (12.0-15.5) H Hematocrit 45.0 % (36.0-47.0) Mean Corpuscular Volume 92 fL (79-100) Mean Corpuscular Hemoglobin 32 pg (25-35) Mean Corpuscular Hemoglobin Concent 35 g/dL (31-37) Red Cell Distribution Width 14.4 % (11.5-14.5) Platelet Count 340 x10^3/uL (140-400) Neutrophils (%) (Auto) 65 % (31-73) Lymphocytes (%) (Auto) 27 % (24-48) Monocytes (%) (Auto) 6 % (0-9) Eosinophils (%) (Auto) 1 % (0-3) Basophils (%) (Auto) 1 % (0-3) Neutrophils # (Auto) 6.1 x10^3/uL (1.8-7.7) Lymphocytes # (Auto) 2.5 x10^3/uL (1.0-4.8) Monocytes # (Auto) 0.5 x10^3/uL (0.0-1.1) Eosinophils # (Auto) 0.1 x10^3/uL (0.0-0.7) Basophils # (Auto) 0.1 x10^3/uL (0.0-0.2) Sodium Level 137 mmol/L (136-145) Potassium Level 3.4 mmol/L (3.5-5.1) L Chloride Level 95 mmol/L (98-107) L Carbon Dioxide Level 27 mmol/L (21-32) Anion Gap 15 (6-14) H Blood Urea Nitrogen 18 mg/dL (7-20) Creatinine 5.0 mg/dL (0.6-1.0) H Estimated GFR (Cockcroft-Gault) 12.1 BUN/Creatinine Ratio 4 (6-20) L Glucose Level 227 mg/dL (70-99) H Calcium Level 11.0 mg/dL (8.5-10.1) H Magnesium Level 2.5 mg/dL (1.8-2.4) H Total Bilirubin 0.4 mg/dL (0.2-1.0) Aspartate Amino Transferase (AST) 16 U/L (15-37) Alanine Aminotransferase (ALT) 11 U/L (14-59) L Alkaline Phosphatase 127 U/L (46-116) H Troponin I Quantitative < 0.017 ng/mL (0.000-0.055) Total Protein 10.3 g/dL (6.4-8.2) H Albumin 4.8 g/dL (3.4-5.0) Albumin/Globulin Ratio 0.9 (1.0-1.7) L Lipase 329 U/L (73-393) Laboratory Tests 08/16/20 20:30 Laboratory Tests 08/16/20 20:30 Vital Signs: Vital Signs Date Time Temp Pulse Resp B/P (MAP) Pulse Ox O2 Delivery O2 Flow Rate FiO2 08/16/20 20:36 100 Room Air 08/16/20 20:10 98.7 100 26 213/167 (182) 98.7 EKG: EK-sinus rhythm rate of 92, no STEMI, read by Dr. Forte [] Heart Score: HEART Score for Chest Pain: HEART Score for Chest Pain Response (Comments) Value History Slighlty/Non-Suspicious 0 ECG Normal 0 Age < 45 0 Risk Factors 1 or 2 Risk Factors 1 Troponin < Normal Limit 0 Total 1 Risk Factors: Risk Factors: DM, Current or recent (<one month) smoker, HTN, HLP, family history of CAD, obesity. Risk Scores: Score 0 - 3: 2.5% MACE over next 6 weeks - Discharge Home Score 4 - 6: 20.3% MACE over next 6 weeks - Admit for Clinical Observation Score 7 - 10: 72.7% MACE over next 6 weeks - Early Invasive Strategies Radiology/Procedures: Radiology/Procedures: PROCEDURE: CT ABDOMEN PELVIS WO CONTRAST Exam: CT of abdomen and pelvis without contrast INDICATION: Generalized abdominal pain TECHNIQUE: Sequential axial images through the abdomen and pelvis obtained without IV contrast. Sagittal and coronal reformatted images were reconstructed from the axial data and reviewed. Comparisons: 05/15/2020 FINDINGS: Heart size is normal. No pericardial effusion visualized lung bases are clear. No pleural effusion. Evaluation of solid organs is limited secondary to noncontrast technique. Liver, spleen, pancreas and adrenals are unremarkable. Gallbladder surgically absent. No perinephric inflammation or hydronephrosis. No renal or ureteral calculi are identified. Bladder is decompressed not well evaluated. Uterus not enlarged. No abnormal adnexal mass. Large amount stool is noted throughout the colon. Remainder of the large and small bowel are unremarkable. No free intra-abdominal air or fluid. No obstruction. Abdominal aorta has a normal course and caliber. Abdominal vasculature is patent. No enlarged intra-abdominal lymph nodes are identified. No suspicious osseous lesions or acute fractures. IMPRESSION: Large amount stool in the colon, correlate for constipation. [] Course & Med Decision Making: Course & Med Decision Making Pertinent Labs and Imaging studies reviewed. (See chart for details) 34-year-old female presented emergency department with complaints of nausea, vomiting, and diffuse abdominal pain. In the emergency department the patient was given 10 mg of Compazine, 1 mg of Dilaudid. She reported feeling better after these medications. CBC was unremarkable; CMP revealed a potassium of 3.4, chloride of 95, anion gap of 15, creatinine of 5, blood sugar 227, calcium of 11, magnesium of 2.5, alk phos of 127 - troponin otherwise unremarkable. CT of her abdomen and pelvis revealed a large amount of stool in the patient's colon concerning for constipation. There was no free air or fluid and no evidence of an obstruction. Patient's vital signs are stable throughout her visit. Advised the patient of these findings. I offered to prescribe MiraLAX for the patient to take twice daily for 3 days and then once a day as needed for constipation the patient refused a prescription for medication for constipation. She states that she already has medications in a special treatment for constipation at home. Prescription was written for Phenergan suppositories to take at home as needed for nausea. Recommend that patient follows up with her primary care doctor next week, return to the ER if symptoms worsen or fever develops. Patient verbalized an understanding of home care, medications, follow-up, and return to ED instructions and was in agreement with the plan of care. Jeffon Disclaimer: Rebecca Disclaimer: This electronic medical record was generated, in whole or in part, using a voice recognition dictation system. Departure Departure Impression: Primary Impression: Generalized abdominal pain Additional Impression: Constipation Disposition: 01 DC HOME SELF CARE/HOMELESS Condition: STABLE Referrals: YASMANY CHISHOLM (PCP) Patient Instructions: Constipation, Adult, [id number], Nausea, Adult, [id number] Additional Instructions: Continue taking your medication for constipation as reported. Follow-up with your primary care doctor next week. Return to dialysis as scheduled next week. Return to the ER if symptoms worsen. Scripts Promethazine Hcl (PROMETHAZINE HCL) 25 Mg Supp.rect 25 MG RC Q6H PRN for NAUSEA/VOMITING for 3 Days, #12 SUPP.RECT 0 Refills Prov: [employer] 08/16/20 Problem Qualifiers Additional Impression: Constipation Constipation type: unspecified constipation type Qualified Codes: K59.00 - Constipation, unspecified B[employer]NA [employer] Aug 16, 2020 22:07
[2020-08-16 22:56] VITALS: BP 195/101
[2020-08-16] MEDS ORDERED: PROM25SU33 RC (23:06)
[2020-08-16] MEDS ORDERED: PROMETHAZINE 25 MG SUPP.RECT. PR ONE (23:30)
== END 2020-08-16 23:15 | disposition home or self-care (01) ==
LOC: ER 19:54
DX: K59.00 Constipation, unspecified (principal); R11.2 Nausea with vomiting, unspecified; R07.89 Other chest pain; E10.22 Type 1 diabetes mellitus with diabetic chronic kidney disease; I12.9 Hypertensive chronic kidney disease with stage 1 through stage 4 chronic kidney disease, or unspecified chronic kidney disease; N18.9 Chronic kidney disease, unspecified; F17.200 Nicotine dependence, unspecified, uncomplicated; Z90.49 Acquired absence of other specified parts of digestive tract; Z99.2 Dependence on renal dialysis; Z88.5 Allergy status to narcotic agent; Z88.6 Allergy status to analgesic agent
CPT/HCPCS: 36415; 74176; 80053; 83690; 83735; 84484; 85025; 96361; 96374; 96375; 99285; J0780; J1170; J7030

== ENCOUNTER 2020-08-17 14:31 | Emergency (ER) | payer OTHER ==
[~2020-08-17] VITALS: Ht 167.6 cm; Wt 52.0 kg
--- NOTE | 2020-08-17 14:55 | PHYS DOC ---
Past Medical History Past Medical History: Cyclic Vomiting, Diabetes-Type I, Hypertension, Kidney Infection, Pancreatitis, Renal Failure, Other Additional Past Medical Histor: GASTROPERESIS,DIALYSIS,SM BOWEL OBSTRUCTION Past Surgical History: Cholecystectomy, , Tubal ligation, Other Additional Past Surgical Histo: FISTULA LEFT ARM, SHUNT RIGHT CHEST Smoking Status: Current Every Day Smoker Alcohol Use: None Drug Use: Marijuana General Adult EDM: Chief Complaint: NAUSEA/VOMITING/DIARRHA HPI: HPI: Patient is a 34 year old female who arrives with a chief complaint of abdominal pain. Patient states she had 2 days of diffuse abdominal pain that sharp and stabbing in nature worse with palpation. Patient was seen here yesterday had a full laboratory evaluation and CAT scan which were unremarkable other than constipation. Patient is on dialysis and received dialysis yesterday. Patient continues to have nausea and vomiting today. She returns because of worsening pain. Pain currently 10 out of 10 and does have some radiation to her back Review of Systems: Review of Systems: Constitutional: Denies fever or chills. [] Eyes: Denies change in visual acuity. [] HENT: Denies nasal congestion or sore throat. [] Respiratory: Denies cough or shortness of breath. [] Cardiovascular: Denies chest pain or edema. [] GI: Patient complains abdominal pain with nausea vomiting : Denies dysuria. [] Musculoskeletal: Denies back pain or joint pain. [] Integument: Denies rash. [] Neurologic: Denies headache, focal weakness or sensory changes. [] Endocrine: Denies polyuria or polydipsia. [] Lymphatic: Denies swollen glands. [] Psychiatric: Denies depression or anxiety. [] Heart Score: Risk Factors: Risk Factors: DM, Current or recent (<one month) smoker, HTN, HLP, family history of CAD, obesity. Risk Scores: Score 0 - 3: 2.5% MACE over next 6 weeks - Discharge Home Score 4 - 6: 20.3% MACE over next 6 weeks - Admit for Clinical Observation Score 7 - 10: 72.7% MACE over next 6 weeks - Early Invasive Strategies Current Medications: Current Medications Haloperidol Lactate (Haldol Inj) 5 mg 1X ONCE IVP Last administered on 08/17/20at 15:22; Start 08/17/20 at 15:00; Stop 12/20/20 at 15:01; Status DC Diphenhydramine HCl (Benadryl) 25 mg 1X ONCE IVP Last administered on 08/17/20at 15:20; Start 08/17/20 at 15:00; Stop 08/17/20 at 15:01; Status DC Lorazepam (Ativan Inj) 1 mg 1X ONCE IVP Last administered on 08/17/20at 15:21; Start 08/17/20 at 15:00; Stop 08/17/20 at 15:01; Status DC Active Scripts Active Promethazine Hcl 25 Mg Supp.rect 25 Mg RC Q6H PRN 3 Days Pepcid (Famotidine) 20 Mg Tablet 20 Mg PO BID Promethazine HCl 50 Mg Supp.rect 50 Mg RC Q8HRS PRN Levsin-Sl (Hyoscyamine Sulfate) 0.125 Mg Tab.subl 0.125 Mg SL Q4-6HRS PRN Diclegis Dr 10-10 Mg Tablet (Doxylamine/Pyridoxine Hcl) 1 Each Tablet.dr 2 Tab PO QHS 7 Days Promethazine Hcl 25 Mg Supp.rect 25 Mg RC Q6H PRN Anti-Itch (Hydrocortisone Acetate) 28 Gm Oint...g. 1 [place] TP PRN Q2HRS PRN 10 Days Transderm-Scop (Scopolamine) 1 Each Patch.td72 1 Patch TD Q3DAYS@0700 10 Days Bisacodyl 5 Mg Tablet.dr 5 Mg PO PRN DAILY PRN 30 Days Acetaminophen Supp (Acetaminophen) 650 Mg Supp.rect 650 Mg ME PRN Q4HRS PRN 30 Days Proair Hfa (Albuterol Sulfate) 8.5 Gm Hfa.aer.ad 2.5 Mg NEB PRN Q4HRS PRN 30 Days Reglan (Metoclopramide Hcl) 10 Mg Tablet 1 Tab PO QID PRN 5 Days before food and bedtime Lidocaine PATCH (Lidocaine) 1 Each Adh..patch 1 Patch TD DAILY 30 Days Reported Amlodipine Besylate 10 Mg Tablet 10 Mg PO DAILY Hydralazine Hcl 50 Mg Tablet 1 Tab PO TID Carvedilol 25 Mg Tablet 25 Mg PO BIDWMEALS Promethazine Hcl 25 Mg Tablet 1 Tab PO PRN Q6HRS Miralax (Polyethylene Glycol 3350) 17 Gm Powd.pack 1 Packet PO BID Novolog (Insulin Aspart) 100 Unit/1 Ml Cartridge 4 Unit SQ TID Pantoprazole Sodium (Pantoprazole Sodium) 40 Mg Tablet. 1 Tab PO DAILY Allergies: Allergies: Allergies Coded Allergies Type Severity Reaction Last Updated Verified ondansetron Allergy Severe edema 07/12/19 Yes ketorolac Allergy Intermediate hives 07/12/19 Yes morphine Allergy Intermediate hives 05/16/20 Yes Physical Exam: PE: Constitutional: Well developed, well nourished, anxious HENT: Normocephalic, atraumatic, bilateral external ears normal, oropharynx moist, no oral exudates, nose normal. [] Eyes: PERRLA, EOMI, conjunctiva normal, no discharge. [] Neck: Normal range of motion, no tenderness, supple, no stridor. [] Cardiovascular: Tachycardic peripheral pulse intact cap refill is brisk Lungs & Thorax: Bilateral breath sounds clear, no respiratory distress Abdomen: Abdomen soft with diffuse tenderness without guarding or rebound no masses, no pulsatile masses. [] Skin: Warm, dry, no erythema, no rash. [] Back: No tenderness, no CVA tenderness. [] Extremities: No tenderness, no cyanosis, no clubbing, ROM intact, no edema. [] Neurologic: Alert and oriented X 3, normal motor function, normal sensory function, no focal deficits noted. [] Psychologic: Anxious Current Patient Data: Labs: Laboratory Tests Test 08/17/20 15:40 White Blood Count 8.6 x10^3/uL Red Blood Count 3.77 x10^6/uL Hemoglobin 12.0 g/dL Hematocrit 34.8 % Mean Corpuscular Volume 93 fL Mean Corpuscular Hemoglobin 32 pg Mean Corpuscular Hemoglobin Concent 34 g/dL Red Cell Distribution Width 14.3 % Platelet Count 274 x10^3/uL Neutrophils (%) (Auto) 62 % Lymphocytes (%) (Auto) 29 % Monocytes (%) (Auto) 8 % Eosinophils (%) (Auto) 0 % Basophils (%) (Auto) 1 % Neutrophils # (Auto) 5.3 x10^3/uL Lymphocytes # (Auto) 2.5 x10^3/uL Monocytes # (Auto) 0.7 x10^3/uL Eosinophils # (Auto) 0.0 x10^3/uL Basophils # (Auto) 0.1 x10^3/uL Maternal Serum HCG Beta Subunit < 1 mIU/mL Sodium Level 136 mmol/L Potassium Level 2.9 mmol/L Chloride Level 98 mmol/L Carbon Dioxide Level 28 mmol/L Anion Gap 10 Blood Urea Nitrogen 27 mg/dL Creatinine 5.7 mg/dL Estimated GFR (Cockcroft-Gault) 10.4 BUN/Creatinine Ratio 5 Glucose Level 146 mg/dL Calcium Level 9.9 mg/dL Total Bilirubin 0.4 mg/dL Aspartate Amino Transf (AST/SGOT) 12 U/L Alanine Aminotransferase (ALT/SGPT) 11 U/L Alkaline Phosphatase 94 U/L Total Protein 7.6 g/dL Albumin 3.7 g/dL Albumin/Globulin Ratio 0.9 Lipase 298 U/L Current Medications Medications (Trade) Dose Ordered Sig/Brown Route PRN Reason Start Time Stop Time Status Last Admin Dose Admin Haloperidol Lactate (Haldol Inj) 5 mg 1X ONCE IVP 08/17/20 15:00 08/17/20 15:01 DC 08/17/20 15:22 Diphenhydramine HCl (Benadryl) 25 mg 1X ONCE IVP 08/17/20 15:00 08/17/20 15:01 DC 08/17/20 15:20 Lorazepam (Ativan Inj) 1 mg 1X ONCE IVP 08/17/20 15:00 08/17/20 15:01 DC 08/17/20 15:21 Vital Signs: Vital Signs Date Time Temp Pulse Resp B/P (MAP) Pulse Ox O2 Delivery O2 Flow Rate FiO2 08/17/20 14:41 98.8 116 18 225/116 (152) 100 Room Air 98.8 EKG: EKG: [] Radiology/Procedures: Radiology/Procedures: [] Course & Med Decision Making: Course & Med Decision Making Pertinent Labs and Imaging studies reviewed. (See chart for details) [] 34-year-old female presents with an exacerbation of her chronic abdominal pain. Patient's abdominal exam is soft and nonsurgical. Patient's laboratory exam is unremarkable other than her chronic renal failure and some mild hypokalemia which I will not treat as she is a dialysis patient and this will correct on its own. Patient reassessed at 4:30 PM and resting comfortably and pain is much better. Heart rate is significantly proved blood pressure is improved. Patient stable for discharge and outpatient follow-up. Rebecca Disclaimer: Rebecca Disclaimer: This electronic medical record was generated, in whole or in part, using a voice recognition dictation system. Departure Departure Impression: Primary Impression: Generalized abdominal pain Additional Impressions: Vomiting Chronic renal failure Disposition: 01 DC HOME SELF CARE/HOMELESS Condition: STABLE Referrals: YASMANY CHISHOLM (PCP) 2 DAYS Patient Instructions: Abdominal Migraine Additional Instructions: EMERGENCY DEPARTMENT GENERAL DISCHARGE INSTRUCTIONS THANK YOU for coming to [facility] Emergency Department (ED) today and trusting us with your care. We trust that you had a positive experience in our Emergency Department. If you wish to speak to the department Management you can contact the purchasing department clerk at . YOUR FOLLOW UP INSTRUCTIONS ARE FOLLOWS: Do you have a private doctor? If you do not have a private doctor, please ask for a resource list of physicians or clinics that may be able to assist you with follow up care. The Emergency Physician has interpreted your x-rays. The X-ray specialist will also review them. If there is a change in the findings you will be notified in 48 hours when at all possible. A lab test or lab culture may have been done, your results will be reviewed and you will be notified if you need a change in treatment. ADDITIONAL INSTRUCTIONS AND INFORMATION Your care today has been supervised by a physician who is specially trained in emergency care. Many problems require more than one evaluation for a complete diagnosis and treatment. We recommend that you schedule your follow up appointment as recommended to ensure complete treatment of your illness or injury. If you are unable to obtain follow up care and continue to have a problem, or if your condition worsens we recommend that you return to the ED. We are not able to safely determine your condition over the phone nor are we able to give sound medical advice over the phone. For these safety reasons, if you call for medical advice we will ask you to come to the ED for further evaluation If you have any questions regarding these discharge instructions please call the ED at . SAFETY INFORMATION In the interest of safety, wellness, and injury prevention; we encourage you to wear your seatbelt, if you smoke; quit smoking, and we encourage your family to use protective helmet for bicycling and other sporting events that present an increased risk for head injury. IF YOUR SYMPTOMS WORSEN OR NEW SYMPTOMS DEVELOP, OR YOU HAVE CONCERNS ABOUT YOUR CONDITION; OR IF YOUR CONDITION WORSENS WHILE YOU ARE WAITING FOR YOUR FOLLOW UP APPOINTMENT; EITHER CONTACT YOUR PRIMARY CARE DOCTOR, THE PHYSICIAN WHOSE NAME AND NUMBER YOU WERE GIVEN, OR RETURN TO THE ED IMMEDIATELY. SOILA VELASQUEZ MD Aug 17, 2020 14:55
[2020-08-17] MEDS ORDERED: HALOPERIDOL LACTATE 5 MG/ML VIAL. IVP ONE (15:00)
[2020-08-17] MEDS ORDERED: diphenhydrAMINE 50 MG/ML VIAL IVP ONE (15:00)
[2020-08-17 15:54] LABS: BASO # 0.1 x10^3/uL (0.0-0.2); BASO % 1 % (0-3); EOS % 0 % (0-3); HEMATOCRIT 34.8 % (36.0-47.0); LYMPH # 2.5 x10^3/uL (1.0-4.8); LYMPH % 29 % (24-48); MEAN CORPUSCULAR HEMOGLOBIN 32 pg (25-35); MEAN CORPUSCULAR HGB CONC 34 g/dL (31-37); MEAN CORPUSCULAR VOLUME 93 fL (79-100); MONO # 0.7 x10^3/uL (0.0-1.1); MONO % 8 % (0-9); NEUT # 5.3 x10^3/uL (1.8-7.7); NEUT % 62 % (31-73); PLATELET COUNT 274 x10^3/uL (140-400); RED BLOOD COUNT 3.77 x10^6/uL (3.50-5.40); RED CELL DISTRIBUTION WIDTH 14.3 % (11.5-14.5); WHITE BLOOD COUNT 8.6 x10^3/uL (4.0-11.0)
[2020-08-17 16:18] LABS: ALBUMIN 3.7 g/dL (3.4-5.0); ALBUMIN/GLOBULIN RATIO 0.9 (1.0-1.7); CALCIUM 9.9 mg/dL (8.5-10.1); CREATININE 5.7 mg/dL (0.6-1.0); GFR 10.4; TOTAL BILIRUBIN 0.4 mg/dL (0.2-1.0); TOTAL PROTEIN 7.6 g/dL (6.4-8.2)
[2020-08-17 16:24] LABS: POTASSIUM 2.9 mmol/L (3.5-5.1)
[2020-08-17 18:06] VITALS: BP 169/93
--- NOTE | 2020-08-18 04:19 | EKG ---
[facility] [address] [place] [address] Test Date: 2020-08-16 Test Time: 20:24:15 Pat Name: JOSIAH CALZADA Department: Room: Gender: F Spark Tester: : 1985 Requested By: SOILA VELASQUEZ Order Number: [id number] Reading MD: Measurements Intervals [place] Rate: 92 P: 77 LA: 166 QRS: 62 QRSD: 84 T: 74 QT: 348 QTc: 435 Interpretive Statements SINUS RHYTHM BIATRIAL ENLARGEMENT ABNORMAL ECG RI6.01 No previous ECG available for comparison
== END 2020-08-17 18:07 | disposition home or self-care (01) ==
LOC: ER 14:31
DX: R10.84 Generalized abdominal pain (principal); R11.2 Nausea with vomiting, unspecified; I12.9 Hypertensive chronic kidney disease with stage 1 through stage 4 chronic kidney disease, or unspecified chronic kidney disease; E10.22 Type 1 diabetes mellitus with diabetic chronic kidney disease; N18.9 Chronic kidney disease, unspecified; F17.200 Nicotine dependence, unspecified, uncomplicated; Z98.51 Tubal ligation status; Z90.49 Acquired absence of other specified parts of digestive tract; Z99.2 Dependence on renal dialysis; Z88.5 Allergy status to narcotic agent; Z88.6 Allergy status to analgesic agent
CPT/HCPCS: 36415; 80053; 83690; 84702; 85025; 96374; 96375; 99285; J1200; J1630; J2060; 93005

== ENCOUNTER 2020-08-18 20:33 | Emergency (ER) | payer OTHER ==
[~2020-08-18] VITALS: Ht 167.6 cm; Wt 59.0 kg
[2020-08-18 21:45] LABS: BASO # 0.1 x10^3/uL (0.0-0.2); BASO % 1 % (0-3); EOS # 0.1 x10^3/uL (0.0-0.7); EOS % 1 % (0-3); HEMATOCRIT 36.4 % (36.0-47.0); HEMOGLOBIN 12.5 g/dL (12.0-15.5); LYMPH # 2.7 x10^3/uL (1.0-4.8); LYMPH % 33 % (24-48); MEAN CORPUSCULAR HEMOGLOBIN 32 pg (25-35); MEAN CORPUSCULAR HGB CONC 34 g/dL (31-37); MEAN CORPUSCULAR VOLUME 93 fL (79-100); MONO # 0.6 x10^3/uL (0.0-1.1); MONO % 7 % (0-9); NEUT # 4.7 x10^3/uL (1.8-7.7); NEUT % 57 % (31-73); PLATELET COUNT 294 x10^3/uL (140-400); RED BLOOD COUNT 3.91 x10^6/uL (3.50-5.40); RED CELL DISTRIBUTION WIDTH 14.1 % (11.5-14.5); WHITE BLOOD COUNT 8.2 x10^3/uL (4.0-11.0)
[2020-08-18 22:26] LABS: CALCIUM 8.7 mg/dL (8.5-10.1); CREATININE 7.3 mg/dL (0.6-1.0); GFR 7.8; POTASSIUM 3.3 mmol/L (3.5-5.1)
[2020-08-18 22:33] LABS: ALBUMIN 3.6 g/dL (3.4-5.0); TOTAL BILIRUBIN 0.3 mg/dL (0.2-1.0); TOTAL PROTEIN 7.2 g/dL (6.4-8.2)
--- NOTE | 2020-08-18 23:23 | PHYS DOC ---
Past Medical History Past Medical History: Cyclic Vomiting, Diabetes-Type I, Hypertension, Kidney Infection, Pancreatitis, Renal Failure, Other Additional Past Medical Histor: GASTROPERESIS,DIALYSIS,SM BOWEL OBSTRUCTION Past Surgical History: Cholecystectomy, , Tubal ligation, Other Additional Past Surgical Histo: FISTULA LEFT ARM, SHUNT RIGHT CHEST Smoking Status: Current Every Day Smoker Alcohol Use: None Drug Use: Marijuana General Adult EDM: Chief Complaint: ABDOMINAL PAIN HPI: HPI: Patient is a 34 year old female with history of diabetes type 1, hypertension, end-stage kidney disease on dialysis Tuesday last dialyzed on Tuesday presenting to the ED today complaining of moderate pain from her flank into her abdomen diffusely. Patient describes the pain as sharp and constant. She states the pain has been on for quite some time. She is not definite about this. Of note this is her third visit in the ED in the last 3 days. Review of Systems: Review of Systems: Constitutional: Denies fever or chills. [] Eyes: Denies change in visual acuity. [] HENT: Denies nasal congestion or sore throat. [] Respiratory: Denies cough or shortness of breath. [] Cardiovascular: Denies chest pain or edema. [] GI: Reports abdominal pain, denies nausea, vomiting, bloody stools or diarrhea. [] : Reports flank pain. Denies dysuria. [] Musculoskeletal: Denies back pain or joint pain. [] Integument: Denies rash. [] Neurologic: Denies headache, focal weakness or sensory changes. [] Psychiatric: Denies depression or anxiety. [] Heart Score: Risk Factors: Risk Factors: DM, Current or recent (<one month) smoker, HTN, HLP, family history of CAD, obesity. Risk Scores: Score 0 - 3: 2.5% MACE over next 6 weeks - Discharge Home Score 4 - 6: 20.3% MACE over next 6 weeks - Admit for Clinical Observation Score 7 - 10: 72.7% MACE over next 6 weeks - Early Invasive Strategies Allergies: Allergies: Allergies Coded Allergies Type Severity Reaction Last Updated Verified ondansetron Allergy Severe edema 07/12/19 Yes ketorolac Allergy Intermediate hives 07/12/19 Yes morphine Allergy Intermediate hives 05/16/20 Yes Physical Exam: PE: Constitutional: Well developed, well nourished, no acute distress, non-toxic appearance. [] HENT: Normocephalic, atraumatic, bilateral external ears normal, oropharynx moist, no oral exudates, nose normal. [] Eyes: PERRLA, EOMI, conjunctiva normal, no discharge. [] Neck: Normal range of motion, no tenderness, supple, no stridor. [] Cardiovascular:Heart rate regular rhythm, no murmur [] Lungs & Thorax: Bilateral breath sounds clear to auscultation [] Abdomen: Bowel sounds normal, soft, no tenderness, no masses, no pulsatile masses. [] Skin: Warm, dry, no erythema, no rash. [] Back: No tenderness, no CVA tenderness. [] Extremities: No tenderness, no cyanosis, no clubbing, ROM intact, no edema. [] Neurologic: Alert and oriented X 3, normal motor function, normal sensory function, no focal deficits noted. [] Psychologic: Affect normal, judgement normal, mood normal. [] Current Patient Data: Labs: Laboratory Tests Test 08/18/20 21:25 08/18/20 22:10 White Blood Count 8.2 x10^3/uL (4.0-11.0) Red Blood Count 3.91 x10^6/uL (3.50-5.40) Hemoglobin 12.5 g/dL (12.0-15.5) Hematocrit 36.4 % (36.0-47.0) Mean Corpuscular Volume 93 fL (79-100) Mean Corpuscular Hemoglobin 32 pg (25-35) Mean Corpuscular Hemoglobin Concent 34 g/dL (31-37) Red Cell Distribution Width 14.1 % (11.5-14.5) Platelet Count 294 x10^3/uL (140-400) Neutrophils (%) (Auto) 57 % (31-73) Lymphocytes (%) (Auto) 33 % (24-48) Monocytes (%) (Auto) 7 % (0-9) Eosinophils (%) (Auto) 1 % (0-3) Basophils (%) (Auto) 1 % (0-3) Neutrophils # (Auto) 4.7 x10^3/uL (1.8-7.7) Lymphocytes # (Auto) 2.7 x10^3/uL (1.0-4.8) Monocytes # (Auto) 0.6 x10^3/uL (0.0-1.1) Eosinophils # (Auto) 0.1 x10^3/uL (0.0-0.7) Basophils # (Auto) 0.1 x10^3/uL (0.0-0.2) Sodium Level 134 mmol/L (136-145) L Potassium Level 3.3 mmol/L (3.5-5.1) L Chloride Level 96 mmol/L (98-107) L Carbon Dioxide Level 29 mmol/L (21-32) Anion Gap 9 (6-14) Blood Urea Nitrogen 35 mg/dL (7-20) H Creatinine 7.3 mg/dL (0.6-1.0) H Estimated GFR (Cockcroft-Gault) 7.8 BUN/Creatinine Ratio 5 (6-20) L Glucose Level 214 mg/dL (70-99) H Calcium Level 8.7 mg/dL (8.5-10.1) Total Bilirubin 0.3 mg/dL (0.2-1.0) Aspartate Amino Transferase (AST) 13 U/L (15-37) L Alanine Aminotransferase (ALT) 13 U/L (14-59) L Alkaline Phosphatase 92 U/L (46-116) Total Protein 7.2 g/dL (6.4-8.2) Albumin 3.6 g/dL (3.4-5.0) Albumin/Globulin Ratio 1.0 (1.0-1.7) Lipase 235 U/L (73-393) Laboratory Tests 08/18/20 21:25 Laboratory Tests 08/18/20 22:10 Vital Signs: Vital Signs Date Time Temp Pulse Resp B/P (MAP) Pulse Ox O2 Delivery O2 Flow Rate FiO2 08/18/20 20:50 98.2 78 20 119/70 (86) 97 98.2 EKG: EKG: [] Radiology/Procedures: Radiology/Procedures: [] Course & Med Decision Making: Course & Med Decision Making Pertinent Labs and Imaging studies reviewed. (See chart for details) This is a 34-year-old female patient on dialysis presenting today complaining of flank pain as well as abdominal pain for unknown period of time. This is her third visit in the ED in the last 3 days with the same complaint. 3 days ago she had a full work-up including a negative CAT scan of the abdomen and pelvis. She was noted to be moderately constipated which could still be the source of her pain. She returned yesterday for the same complaint and had negative lab work. Today her CBC has no acute findings. CMP with potassium of 3.3. Considering she is a dialysis patient will not replace this potassium in the ED because we risk the chance of making it worse in terms of hyperkalemia. She will be discharged home. Follow-up with PCP as well as nephrology. Rebecca Disclaimer: Rebecca Disclaimer: This electronic medical record was generated, in whole or in part, using a voice recognition dictation system. Departure Departure Impression: Primary Impression: Chronic abdominal pain Additional Impression: Chronic back pain Qualified Codes: M54.6 - Pain in thoracic spine; G89.29 - Other chronic pain Disposition: 01 DC HOME SELF CARE/HOMELESS Condition: STABLE Referrals: YASMANY CHISHOLM (PCP) Follow-up with your doctor tomorrow Patient Instructions: Abdominal Pain (Nonspecific) Additional Instructions: You were seen for flank pain and abdominal pain. Your work-up in the emergency room is negative. Follow-up with your own doctor. KELLEE ROWLAND APRN Aug 18, 2020 23:23
[2020-08-18 23:30] VITALS: BP 130/78
== END 2020-08-18 23:30 | disposition home or self-care (01) ==
LOC: ER 20:33
DX: G89.29 Other chronic pain (principal); R10.84 Generalized abdominal pain; M54.6 Pain in thoracic spine; E10.22 Type 1 diabetes mellitus with diabetic chronic kidney disease; N18.6 End stage renal disease; I10 Essential (primary) hypertension; Z99.2 Dependence on renal dialysis; F17.200 Nicotine dependence, unspecified, uncomplicated; Z90.49 Acquired absence of other specified parts of digestive tract; Z98.51 Tubal ligation status; Z88.5 Allergy status to narcotic agent; Z88.6 Allergy status to analgesic agent
CPT/HCPCS: 36415; 80053; 83690; 85025; 99283

== ENCOUNTER 2020-12-28 08:24 | Emergency (ER) | payer OTHER ==
[~2020-12-28] VITALS: Ht 167.6 cm; Wt 59.0 kg
[~2020-12-28 08:24] MED LIST changes: -ISOS30TA4 PO; +ISOS30TA68 PO
[2020-12-28] MEDS ORDERED: LIDO:MAALOX 1:1 20 ML SINGLE DOSE. SWSW ONE (09:15)
[2020-12-28] MEDS ORDERED: IV NORMAL SALINE 500ML BAG 500 ML IV ONE ×2 (09:15→10:15)
[2020-12-28] MEDS ORDERED: METOCLOPRAMIDE HCL 10 MG/2 ML VIAL. IVP ONE (09:15)
--- NOTE | 2020-12-28 09:15 | ED.ADGEN ---
Past Medical History Past Medical History: Cyclic Vomiting, Diabetes-Type I, Hypertension, Kidney Infection, Pancreatitis, Renal Failure, Other Additional Past Medical Histor: GASTROPERESIS,DIALYSIS,SM BOWEL OBSTRUCTION Past Surgical History: Cholecystectomy, , Tubal ligation, Other Additional Past Surgical Histo: FISTULA LEFT ARM, SHUNT RIGHT CHEST Smoking Status: Current Every Day Smoker Alcohol Use: None Drug Use: Marijuana General Adult EDM: Chief Complaint: NAUSEA/VOMITING/DIARRHEA HPI: HPI: Patient is a 35 year old female coming in for right side abdominal pain and emesis since yesterday. Last vomit was "normal" yesterday morning. Patient had frequent ER visits in the past for gastroparesis and chronic abdominal pain. Emesis is nonbloody or bilious. Patient denies any fevers, cough. Review of Systems: Review of Systems: All other systems within normal limits except for as noted in the HPI Current Medications: Current Medications Medications (Trade) Dose Ordered Sig/Brown Start Time Stop Time Status Last Admin Dose Admin Diphenhydramine HCl (Benadryl) 50 mg 1X ONCE 12/28/20 10:15 12/28/20 10:16 DC 12/28/20 10:15 50 MG Haloperidol Lactate (Haldol Inj) 5 mg 1X ONCE 12/28/20 10:15 12/28/20 10:16 DC 12/28/20 10:15 5 MG Lorazepam (Ativan Inj) 2 mg 1X ONCE 12/28/20 11:15 12/28/20 11:16 DC 12/28/20 11:09 2 MG Metoclopramide HCl (Reglan Vial) 10 mg 1X ONCE 12/28/20 10:00 12/28/20 10:01 DC 12/28/20 09:55 10 MG Multi-Ingredient Mouthwash/Gargle (Gi Cocktail) 20 ml 1X ONCE 12/28/20 09:15 12/28/20 09:16 DC 12/28/20 09:56 20 ML Sodium Chloride 500 ml @ 500 mls/hr 1X ONCE 12/28/20 10:15 12/28/20 11:14 DC 12/28/20 10:15 500 MLS/HR Allergies: Allergies: Allergies Coded Allergies Type Severity Reaction Last Updated Verified ondansetron Allergy Severe edema 07/12/19 Yes ketorolac Allergy Intermediate hives 11/14/19 Yes morphine Allergy Intermediate hives 05/16/20 Yes Physical Exam: PE: Constitutional: Well developed, well nourished, no acute distress, non-toxic appearance. [] HENT: Normocephalic, atraumatic, bilateral external ears normal, nose normal. [] Eyes: PERRLA, conjunctiva normal, no discharge. [] Neck: No rigidity, supple, no stridor. [] Cardiovascular: Regular rate and rhythm, brisk cap refill [] Lungs & Thorax: Non labored symmetric respirations, no tachypnea or respiratory distress [] Abdomen: Soft, nondistended, right side abdominal pain without guarding rebound. Skin: Warm, dry, no erythema, no rash. [] Back: Unremarkable Extremities: No deformities, range of motion grossly intact, no lower extremity edema [] Neurologic: Alert and oriented X 3, no focal deficits noted. [] Psychologic: Affect normal, judgement normal, mood normal. [] Current Patient Data: Labs: Laboratory Tests Test 12/28/20 09:02 12/28/20 09:52 Urine Opiates Screen Neg (NEG) Urine Methadone Screen Neg (NEG) Urine Barbiturates Neg (NEG) Urine Phencyclidine Screen Neg (NEG) Urine Amphetamine/Methamphetamine Neg (NEG) Urine Benzodiazepines Screen Pos (NEG) Urine Cocaine Screen Neg (NEG) Urine Cannabinoids Screen Pos (NEG) Urine Ethyl Alcohol Neg (NEG) White Blood Count 7.7 x10^3/uL (4.0-11.0) Red Blood Count 3.89 x10^6/uL (3.50-5.40) Hemoglobin 12.5 g/dL (12.0-15.5) Hematocrit 36.5 % (36.0-47.0) Mean Corpuscular Volume 94 fL (79-100) Mean Corpuscular Hemoglobin 32 pg (25-35) Mean Corpuscular Hemoglobin Concent 34 g/dL (31-37) Red Cell Distribution Width 14.0 % (11.5-14.5) Platelet Count 242 x10^3/uL (140-400) Neutrophils (%) (Auto) 66 % (31-73) Lymphocytes (%) (Auto) 26 % (24-48) Monocytes (%) (Auto) 7 % (0-9) Eosinophils (%) (Auto) 1 % (0-3) Basophils (%) (Auto) 1 % (0-3) Neutrophils # (Auto) 5.1 x10^3/uL (1.8-7.7) Lymphocytes # (Auto) 2.0 x10^3/uL (1.0-4.8) Monocytes # (Auto) 0.5 x10^3/uL (0.0-1.1) Eosinophils # (Auto) 0.1 x10^3/uL (0.0-0.7) Basophils # (Auto) 0.1 x10^3/uL (0.0-0.2) Sodium Level 141 mmol/L (136-145) Potassium Level 4.3 mmol/L (3.5-5.1) Chloride Level 102 mmol/L (98-107) Carbon Dioxide Level 30 mmol/L (21-32) Anion Gap 9 (6-14) Blood Urea Nitrogen 21 mg/dL (7-20) H Creatinine 5.3 mg/dL (0.6-1.0) H Estimated GFR (Cockcroft-Gault) 11.3 BUN/Creatinine Ratio 4 (6-20) L Glucose Level 157 mg/dL (70-99) H Calcium Level 9.6 mg/dL (8.5-10.1) Phosphorus Level 4.6 mg/dL (2.6-4.7) Magnesium Level 2.3 mg/dL (1.8-2.4) Total Bilirubin 0.5 mg/dL (0.2-1.0) Aspartate Amino Transferase (AST) 13 U/L (15-37) L Alanine Aminotransferase (ALT) 15 U/L (14-59) Alkaline Phosphatase 88 U/L (46-116) Troponin I Quantitative < 0.017 ng/mL (0.000-0.055) Total Protein 8.0 g/dL (6.4-8.2) Albumin 4.1 g/dL (3.4-5.0) Albumin/Globulin Ratio 1.1 (1.0-1.7) Lipase 163 U/L (73-393) Ethyl Alcohol Level < 10 mg/dL (0-10) Laboratory Tests 12/28/20 09:52 Laboratory Tests 12/28/20 09:52 Vital Signs: Vital Signs Date Time Temp Pulse Resp B/P (MAP) Pulse Ox O2 Delivery O2 Flow Rate FiO2 12/28/20 11:40 74 23 144/86 (105) 100 Room Air 12/28/20 08:26 98.3 98.3 EKG: EKG: Sinus rhythm with left axis deviation, heart rate 79 bpm, ST elevation in multiple leads consistent with benign early repole. No ectopy, normal intervals [] Heart Score: C/O Chest Pain: No Risk Factors: Risk Factors: DM, Current or recent (<one month) smoker, HTN, HLP, family history of CAD, obesity. Risk Scores: Score 0 - 3: 2.5% MACE over next 6 weeks - Discharge Home Score 4 - 6: 20.3% MACE over next 6 weeks - Admit for Clinical Observation Score 7 - 10: 72.7% MACE over next 6 weeks - Early Invasive Strategies Radiology/Procedures: Radiology/Procedures: Acute Abdominal Series: Technique: PA view of the chest and supine and upright views of the abdomen were obtained. History: Right-sided abdominal pain and emesis. Comparison: None. Findings: The heart and pulmonary vessels are normal size. The lungs are clear. There is air and stool scattered throughout the colon. There is a paucity small bowel gas. There is no free air. Impression: Constipation. [] Course & Med Decision Making: Course & Med Decision Making Pertinent Labs and Imaging studies reviewed. (See chart for details) [] Dragon Disclaimer: Dragon Disclaimer: This electronic medical record was generated, in whole or in part, using a voice recognition dictation system. Departure Departure Impression: Primary Impression: Diabetic gastroparesis Disposition: HOME / SELF CARE / HOMELESS Condition: STABLE Referrals: YASMANY CHISHOLM (PCP) Patient Instructions: Nausea and Vomiting Scripts Metoclopramide Hcl (REGLAN) 10 Mg Tablet 1 TAB PO TID PRN for NAUSEA for 10 Days, #30 TAB 0 Refills before food and bedtime Prov: JOSIAH SHAHID MD 12/28/20 JOSIAH SHAHID MD December 28, 2020 09:15
[2020-12-28] MEDS ORDERED: METOCLOPRAMIDE HCL 10 MG/2 ML VIAL. IM ONE (10:00)
[2020-12-28 10:12] LABS: BASO # 0.1 x10^3/uL (0.0-0.2); BASO % 1 % (0-3); EOS # 0.1 x10^3/uL (0.0-0.7); EOS % 1 % (0-3); HEMATOCRIT 36.5 % (36.0-47.0); HEMOGLOBIN 12.5 g/dL (12.0-15.5); LYMPH % 26 % (24-48); MEAN CORPUSCULAR HEMOGLOBIN 32 pg (25-35); MEAN CORPUSCULAR HGB CONC 34 g/dL (31-37); MEAN CORPUSCULAR VOLUME 94 fL (79-100); MONO # 0.5 x10^3/uL (0.0-1.1); MONO % 7 % (0-9); NEUT # 5.1 x10^3/uL (1.8-7.7); NEUT % 66 % (31-73); PLATELET COUNT 242 x10^3/uL (140-400); RED BLOOD COUNT 3.89 x10^6/uL (3.50-5.40); WHITE BLOOD COUNT 7.7 x10^3/uL (4.0-11.0)
[2020-12-28 10:13] LABS: CALCIUM 9.6 mg/dL (8.5-10.1); CREATININE 5.3 mg/dL (0.6-1.0); GFR 11.3; POTASSIUM 4.3 mmol/L (3.5-5.1)
[2020-12-28 10:15] LABS: BARBITURATES NEG (NEG); BENZODIAZEPINES POS (NEG); CANNABINOIDS POS (NEG); COCAINE NEG (NEG); METHADONE NEG (NEG); OPIATES NEG (NEG); PHENCYCLIDINE NEG (NEG)
[2020-12-28] MEDS ORDERED: diphenhydrAMINE 50 MG/ML VIAL IVP ONE (10:15)
[2020-12-28] MEDS ORDERED: HALOPERIDOL LACTATE 5 MG/ML VIAL. IVP ONE (10:15)
[2020-12-28 10:16] LABS: AMPHETAMINE/METHAMPHETAMINE NEG (NEG)
[2020-12-28 10:19] LABS: ALBUMIN 4.1 g/dL (3.4-5.0); ALBUMIN/GLOBULIN RATIO 1.1 (1.0-1.7); MAGNESIUM 2.3 mg/dL (1.8-2.4); PHOSPHORUS 4.6 mg/dL (2.6-4.7); TOTAL BILIRUBIN 0.5 mg/dL (0.2-1.0)
--- NOTE | 2020-12-28 10:19 | RAD ---
Acute Abdominal Series: Technique: PA view of the chest and supine and upright views of the abdomen were obtained. History: Right-sided abdominal pain and emesis. Comparison: None. Findings: The heart and pulmonary vessels are normal size. The lungs are clear. There is air and stool scattered throughout the colon. There is a paucity small bowel gas. There is n o free air. Impression: Constipation. Electronically signed by: Jm Esteban III, MD (12/28/2020 10:16 AM) [facility]
[2020-12-28] MEDS ORDERED: METO10TA81 PO (10:58)
[2020-12-28 11:40] VITALS: BP 144/86
--- NOTE | 2020-12-28 19:41 | EKG ---
[facility] [address] [place] [address] Test Date: 2020-12-28 Test Time: 09:17:22 Pat Name: JOSIAHEMILY CALZADA Department: Room: Gender: F Administration Professional: : [id number] Requested By: JOSIAH SHAHID Order Number: [id number] Reading MD: Measurements Intervals [place] Rate: 79 P: 73 MS: 160 QRS: 62 QRSD: 86 T: 79 QT: 368 QTc: 423 Interpretive Statements SINUS RHYTHM LEFT ATRIAL ABNORMALITY ABNORMAL ECG RI6.02 No previous ECG available for comparison
== END 2020-12-28 12:15 | disposition home or self-care (01) ==
LOC: ER 08:24
DX: E10.43 Type 1 diabetes mellitus with diabetic autonomic (poly)neuropathy (principal); K31.84 Gastroparesis; G89.29 Other chronic pain; R10.30 Lower abdominal pain, unspecified; R11.2 Nausea with vomiting, unspecified; R19.7 Diarrhea, unspecified; F17.200 Nicotine dependence, unspecified, uncomplicated; Z90.49 Acquired absence of other specified parts of digestive tract; Z98.51 Tubal ligation status; Z88.5 Allergy status to narcotic agent; Z88.6 Allergy status to analgesic agent
CPT/HCPCS: 36415; 74022; 80053; 80307; 83690; 83735; 84100; 84484; 85025; 93005; 96361; 96372; 96374; 96375; 99285; G0480; J1200; J1630; J2060; J2765; J7040

== ENCOUNTER 2020-12-29 18:43 | Emergency (ER) | payer OTHER ==
[~2020-12-29] VITALS: Ht 167.6 cm; Wt 59.1 kg
[2020-12-29 20:06] LABS: BILIRUBIN,URINE NEGATIVE (NEG); CLARITY,URINE CLEAR; COLOR,URINE YELLOW; NITRITE,URINE NEGATIVE (NEG); PROTEIN,URINE 100 mg/dL (NEG-TRACE); UROBILINOGEN,URINE 0.2 mg/dL (0.2 mg/dL)
--- NOTE | 2020-12-29 20:07 | RAD ---
Exam: CT of abdomen and pelvis without contrast INDICATION: Chronic abdominal pain TECHNIQUE: Sequential axial images through the abdomen and pelvis obtained without IV contrast. [place] and coronal reformatted images were reconstructed from the axial data and reviewed. Exposure: One or more of the following in the visualized dose reduction techniques were utilized for this examination: 1. Automated exposure control 2. Adjustment of the MA and/or KV according to patient size 3. Use of iterative of reconstructive technique Comparisons: 08/16/2020 FINDINGS: Heart size is normal. No pericardial effusion. Visualized lung bases are clear. No pleural Evaluation of solid organs limited secondary to noncontrast technique. Liver, spleen, pancreas and adrenals are unremarkable. Gallbladder surgically absent. No perinephric inflammation or hydronephrosis. No renal or ureteral calculi are identified. Bladder is decompressed not well evaluated. Uterus is nonenlarged. Cystic lesion at the right adnexa which measures 4.3 cm. Large amount of stool is noted in the colon. Appendix is nonidentified. No free intra-abdominal air o r fluid. No obstruction. Abdominal aorta has a normal course and caliber. No enlarged intra-abdominal lymph nodes are identified. No suspicious osseous lesions or acute fractures. IMPRESSION: 1. Cystic lesion at the right adnexa measuring 4.3 cm. 2. Large amount stool noted in the colon, correlate for constipation. Electronically signed by: Debbie Harvey MD (12/29/2020 8:05 PM) [facility]
[2020-12-29 20:12] LABS: BACTERIA,URINE MODERATE /HPF (0-FEW); RBC,URINE OCC /HPF (0-2)
[2020-12-29 20:14] LABS: AMPHETAMINE/METHAMPHETAMINE NEG (NEG); BARBITURATES NEG (NEG); BENZODIAZEPINES NEG (NEG); CANNABINOIDS POS (NEG); COCAINE NEG (NEG); METHADONE NEG (NEG); OPIATES NEG (NEG); PHENCYCLIDINE NEG (NEG)
[2020-12-29] MEDS ORDERED: PROCHLORPERAZINE 10 MG/2 ML VIAL. IM ONE (20:30)
--- NOTE | 2020-12-29 20:30 | PHYS DOC ---
Past Medical History Past Medical History: Cyclic Vomiting, Diabetes-Type I, Hypertension, Kidney Infection, Pancreatitis, Renal Failure, Other Additional Past Medical Histor: GASTROPERESIS,DIALYSIS,SM BOWEL OBSTRUCTION Past Surgical History: Cholecystectomy, , Tubal ligation, Other Additional Past Surgical Histo: FISTULA LEFT ARM, SHUNT RIGHT CHEST Smoking Status: Current Every Day Smoker Alcohol Use: None Drug Use: Marijuana General Adult EDM: Chief Complaint: ABDOMINAL PAIN HPI: HPI: Female with history of diabetes female with a history of diabetes type 1, hypertension, end-stage kidney disease on dialysis Tuesday last dialyzed on Tuesday, cyclic vomiting, marijuana use, narcotic dependence, chronic abdominal pain mostly to the right side, who presents to the ED today complaining of moderate right-sided abdominal pain, nausea and vomiting, symptoms began yesterday, patient was evaluated in the ED, was given medicines for her symptoms and states she is not feeling any better. Of note family called requesting we do not give patient any narcotics or any medicines including Benadryl that can make her high, the report patient goes to several hospitals looking for pain medicine or anything to make her high Review of Systems: Review of Systems: Constitutional: Denies fever or chills. [] Eyes: Denies change in visual acuity. [] HENT: Denies nasal congestion or sore throat. [] Respiratory: Denies cough or shortness of breath. [] Cardiovascular: Denies chest pain or edema. [] GI: Reports abdominal pain, nausea vomiting, denies bloody stools or diarrhea. [] : Denies dysuria. [] Musculoskeletal: Denies back pain or joint pain. [] Integument: Denies rash. [] Neurologic: Denies headache, focal weakness or sensory changes. [] Psychiatric: Denies depression or anxiety. [] Heart Score: C/O Chest Pain: N/A Risk Factors: Risk Factors: DM, Current or recent (<one month) smoker, HTN, HLP, family history of CAD, obesity. Risk Scores: Score 0 - 3: 2.5% MACE over next 6 weeks - Discharge Home Score 4 - 6: 20.3% MACE over next 6 weeks - Admit for Clinical Observation Score 7 - 10: 72.7% MACE over next 6 weeks - Early Invasive Strategies Current Medications: Current Medications Medications (Trade) Dose Ordered Sig/Brown Start Time Stop Time Status Last Admin Dose Admin Prochlorperazine Edisylate (Compazine) 10 mg 1X ONCE 12/29/20 20:30 12/29/20 20:31 12/29/20 20:04 10 MG Allergies: Allergies: Allergies Coded Allergies Type Severity Reaction Last Updated Verified ondansetron Allergy Severe edema 07/12/19 Yes ketorolac Allergy Intermediate hives 07/12/19 Yes morphine Allergy Intermediate hives 05/16/20 Yes Physical Exam: PE: Constitutional: Thin appearing, no acute distress, non-toxic appearance. [] HENT: Normocephalic, atraumatic, bilateral external ears normal, oropharynx moist, no oral exudates, nose normal. [] Eyes: PERRLA, EOMI, conjunctiva normal, no discharge. [] Neck: Normal range of motion, no tenderness, supple, no stridor. [] Cardiovascular:Heart rate regular rhythm, no murmur [] Lungs & Thorax: Bilateral breath sounds clear to auscultation [] Abdomen: Bowel sounds normal, soft, diffuse tenderness throughout the abdomen, negative psoas sign, negative obturator sign, negative Schwartz sign, no masses, no pulsatile masses. [] Skin: Warm, dry, no erythema, no rash. [] Back: No tenderness, no CVA tenderness. [] Extremities: No tenderness, no cyanosis, no clubbing, ROM intact, no edema. [] Neurologic: Alert and oriented X 3, normal motor function, normal sensory function, no focal deficits noted. [] Psychologic: Crying out loud, Current Patient Data: Labs: Laboratory Tests Test 12/29/20 19:25 12/29/20 19:30 Urine Collection Type Unknown Urine Color Yellow Urine Clarity Clear Urine pH 8.0 (<5.0-8.0) Urine Specific [place] 1.015 (1.000-1.030) Urine Protein 100 mg/dL (NEG-TRACE) Urine Glucose (UA) 100 mg/dL (NEG) Urine Ketones (Stick) Negative mg/dL (NEG) Urine Blood Negative (NEG) Urine Nitrite Negative (NEG) Urine Bilirubin Negative (NEG) Urine Urobilinogen Dipstick 0.2 mg/dL (0.2 mg/dL) Urine Leukocyte Esterase Trace (NEG) Urine RBC Occ /HPF (0-2) Urine WBC 1-4 /HPF (0-4) Urine Squamous Epithelial Cells Many /LPF Urine Bacteria Moderate /HPF (0-FEW) Urine Opiates Screen Neg (NEG) Urine Methadone Screen Neg (NEG) Urine Barbiturates Neg (NEG) Urine Phencyclidine Screen Neg (NEG) Urine Amphetamine/Methamphetamine Neg (NEG) Urine Benzodiazepines Screen Neg (NEG) Urine Cocaine Screen Neg (NEG) Urine Cannabinoids Screen Pos (NEG) Urine Ethyl Alcohol Neg (NEG) POC Urine HCG, Qualitative Hcg negative (Negative) EKG: EKG: [] Radiology/Procedures: Radiology/Procedures: []PROCEDURE: CT ABDOMEN PELVIS WO CONTRAST Exam: CT of abdomen and pelvis without contrast INDICATION: Chronic abdominal pain TECHNIQUE: Sequential axial images through the abdomen and pelvis obtained without IV contrast. Sagittal and coronal reformatted images were reconstructed from the axial data and reviewed. Exposure: One or more of the following in the visualized dose reduction techniques were utilized for this examination: 1. Automated exposure control 2. Adjustment of the MA and/or KV according to patient size 3. Use of iterative of reconstructive technique Comparisons: 08/16/2020 FINDINGS: Heart size is normal. No pericardial effusion. Visualized lung bases are clear. No pleural Evaluation of solid organs limited secondary to noncontrast technique. Liver, spleen, pancreas and adrenals are unremarkable. Gallbladder surgically absent. No perinephric inflammation or hydronephrosis. No renal or ureteral calculi are identified. Bladder is decompressed not well evaluated. Uterus is nonenlarged. Cystic lesion at the right adnexa which measures 4.3 cm. Large amount of stool is noted in the colon. Appendix is nonidentified. No free intra-abdominal air or fluid. No obstruction. Abdominal aorta has a normal course and caliber. No enlarged intra-abdominal lymph nodes are identified. No suspicious osseous lesions or acute fractures. IMPRESSION: 1. Cystic lesion at the right adnexa measuring 4.3 cm. 2. Large amount stool noted in the colon, correlate for constipation. Electronically signed by: Debbie Liu MD (12/29/2020 8:05 PM) [facility] DICTATED and SIGNED BY: DEBBIE LIU MD DATE: 12/29/20 [id number] 0 Course & Med Decision Making: Course & Med Decision Making Pertinent Labs and Imaging studies reviewed. (See chart for details) This is a 35-year-old female patient presenting to the ED today with chronic abdominal pain, chronic nausea and vomiting. History of marijuana use. Patient was in the ED yesterday and was evaluated for the same pain and has been seen in our ED multiple times for the same pain and same nausea and vomiting. I advised her to consider not using marijuana which was positive in her drug screen today. Yesterday she had lab work done which were negative for any acute findings. Today we did a CT of the abdomen and pelvic that was noted for constipation otherwise no acute findings. She states she uses mag citrate for constipation, bottle was provided in the ED Of note family called requesting patient not to be given anything that makes her high. They stated this patient moves from one emergency room to the other looking for medicines to make her high. They spoke to the RN RN found patient sticking her fingers in her throat trying to induce vomiting. She was asked to stop Dragon Disclaimer: Dragon Disclaimer: This electronic medical record was generated, in whole or in part, using a voice recognition dictation system. Departure Departure Impression: Primary Impression: Chronic abdominal pain Additional Impressions: Cyclical vomiting with nausea Marijuana use Disposition: 01 HOME / SELF CARE / HOMELESS Condition: STABLE Referrals: YASMANY CHISHOLM (PCP) Follow-up next week Patient Instructions: Abdominal Pain, Constipation, Adult Additional Instructions: You were seen in the emergency room for abdominal pain noted to be constipated. Please follow-up with your primary care doctor as soon as possible. Take mag citrate for constipation tonight and tomorrow KELLEE ROWLAND APRN December 29, 2020 20:30
[2020-12-29 20:43] VITALS: BP 191/102
[2020-12-29] MEDS ORDERED: MAGNESIUM CITRATE 296 ML SOLUTION. PO ONE (21:00)
== END 2020-12-29 20:43 | disposition home or self-care (01) ==
LOC: ER 18:43
DX: G89.29 Other chronic pain (principal); R10.84 Generalized abdominal pain; R11.2 Nausea with vomiting, unspecified; F12.90 Cannabis use, unspecified, uncomplicated; I12.0 Hypertensive chronic kidney disease with stage 5 chronic kidney disease or end stage renal disease; E10.22 Type 1 diabetes mellitus with diabetic chronic kidney disease; N18.6 End stage renal disease; Z99.2 Dependence on renal dialysis; F17.200 Nicotine dependence, unspecified, uncomplicated; Z90.49 Acquired absence of other specified parts of digestive tract; Z98.51 Tubal ligation status; Z88.5 Allergy status to narcotic agent; Z88.6 Allergy status to analgesic agent
CPT/HCPCS: 74176; 80307; 81001; 81025; 87086; 96372; 99284; J0780

== ENCOUNTER 2020-12-31 10:51 | Emergency (ER) | payer OTHER ==
[~2020-12-31] VITALS: Ht 167.6 cm; Wt 59.0 kg
[2020-12-31 11:03] VITALS: BP 226/122
[2020-12-31] MEDS ORDERED: PROCHLORPERAZINE 10 MG/2 ML VIAL. IM ONE (11:15)
--- NOTE | 2020-12-31 12:14 | RAD ---
XR ABDOMEN 2V History: Reason: constipation-chronic / Spl. Instructions: / History: Technique: Upright and supine views of the abdomen. Comparison: December 28, [address] December 29, 2020 Findings: Imaged lung bases are unremarkable. Mild small bowel gas. Air and stool scattered throughout the colo n. Mild colonic stool burden. Decreased colonic stool burden compared to prior CT. Surgical clips rig ht upper quadrant. Impression: 1. Nonobstructed bowel gas pattern. Electronically signed by: Ottoniel Benton DO (12/31/2020 12:11 PM) [id number]
--- NOTE | 2020-12-31 12:29 | PHYS DOC ---
Past Medical History Past Medical History: Cyclic Vomiting, Diabetes-Type I, Hypertension, Kidney Infection, Pancreatitis, Renal Failure, Other Additional Past Medical Histor: GASTROPERESIS,DIALYSIS,SM BOWEL OBSTRUCTION Past Surgical History: Cholecystectomy, , Tubal ligation, Other Additional Past Surgical Histo: FISTULA LEFT ARM, SHUNT RIGHT CHEST Smoking Status: Current Every Day Smoker Alcohol Use: None Drug Use: Marijuana General Adult EDM: Chief Complaint: CONSTIPATION HPI: HPI: Patient is a 35 year old female with history of diabetes female with a history of diabetes type 1, hypertension, end-stage kidney disease on dialysis Tuesday last dialyzed on yesterday, cyclic vomiting, marijuana use, narcotic dependence, chronic abdominal pain mostly to the right side, who presents to the ED today complaining of constipation. Patient has known history of constipation, she was seen in the ED and told she was constipated on Tuesday which is the day before yesterday. She was given a bottle of mag citrate which she states she drank. Presents stating she has not had any bowel movement since Tuesday. Nursing staff found her putting fingers in her throat to induce vomiting. She was noted for the same behavior 2 days ago when she was seen in the ED. Patient is thrashing around the bed asking for pain medicine Review of Systems: Review of Systems: Constitutional: Denies fever or chills. [] Eyes: Denies change in visual acuity. [] HENT: Denies nasal congestion or sore throat. [] Respiratory: Denies cough or shortness of breath. [] Cardiovascular: Denies chest pain or edema. [] GI: Reports abdominal pain right-sided, reports nausea and vomiting denies bloody stools or diarrhea. [] : Denies dysuria. [] Musculoskeletal: Denies back pain or joint pain. [] Integument: Denies rash. [] Neurologic: Denies headache, focal weakness or sensory changes. [] Psychiatric: Denies depression or anxiety. [] Heart Score: C/O Chest Pain: N/A Risk Factors: Risk Factors: DM, Current or recent (<one month) smoker, HTN, HLP, family history of CAD, obesity. Risk Scores: Score 0 - 3: 2.5% MACE over next 6 weeks - Discharge Home Score 4 - 6: 20.3% MACE over next 6 weeks - Admit for Clinical Observation Score 7 - 10: 72.7% MACE over next 6 weeks - Early Invasive Strategies Current Medications: Current Medications Medications (Trade) Dose Ordered Sig/Brown Start Time Stop Time Status Last Admin Dose Admin Prochlorperazine Edisylate (Compazine) 10 mg 1X ONCE 12/31/20 11:15 12/31/20 11:16 DC 12/31/20 11:41 10 MG Allergies: Allergies: Allergies Coded Allergies Type Severity Reaction Last Updated Verified ondansetron Allergy Severe edema 07/12/19 Yes ketorolac Allergy Intermediate hives 07/12/19 Yes morphine Allergy Intermediate hives 05/16/20 Yes Physical Exam: PE: Constitutional: Well developed, well nourished, no acute distress, non-toxic appearance. [] HENT: Normocephalic, atraumatic, bilateral external ears normal, oropharynx moist, no oral exudates, nose normal. [] Eyes: PERRLA, EOMI, conjunctiva normal, no discharge. [] Neck: Normal range of motion, no tenderness, supple, no stridor. [] Cardiovascular:Heart rate regular rhythm, no murmur [] Lungs & Thorax: Bilateral breath sounds clear to auscultation [] Abdomen: Bowel sounds normal, soft, no tenderness, no masses, no pulsatile masses. [] Skin: Warm, dry, no erythema, no rash. [] Back: No tenderness, no CVA tenderness. [] Extremities: No tenderness, no cyanosis, no clubbing, ROM intact, no edema. [] Neurologic: Alert and oriented X 3, normal motor function, normal sensory function, no focal deficits noted. [] Psychologic: Crying out loud, dancing around traction itself in the bed, Current Patient Data: Vital Signs: Vital Signs Date Time Temp Pulse Resp B/P (MAP) Pulse Ox O2 Delivery O2 Flow Rate FiO2 12/31/20 11:03 101 33 226/122 (156) 98 Room Air EKG: EKG: [] Radiology/Procedures: Radiology/Procedures: []PROCEDURE: ABDOMEN SUPINE & UPRIGHT XR ABDOMEN 2V History: Reason: constipation-chronic / Spl. Instructions: / History: Technique: Upright and supine views of the abdomen. Comparison: December 28, [address] December 29, 2020 Findings: Imaged lung bases are unremarkable. Mild small bowel gas. Air and stool scattered throughout the colon. Mild colonic stool burden. Decreased colonic stool burden compared to prior CT. Surgical clips right upper quadrant. Impression: 1. Nonobstructed bowel gas pattern. Electronically signed by: Ottoniel Raymond DO (12/31/2020 12:11 PM) [id number] DICTATED and SIGNED BY: OTTONIEL RAYMOND DO DATE: 12/31/20 [id number] 0 Course & Med Decision Making: Course & Med Decision Making Pertinent Labs and Imaging studies reviewed. (See chart for details) This is a 35-year-old female patient well-known to this ED for right lower quadrant abdominal pain, constipation, marijuana use and cyclic vomiting, who presents today complaining of nausea and vomiting and chronic abdominal pain. Patient is thrashing around the bed asking for pain medicine that begins with the letter D. She was seen in the ED on Tuesday which is the day before yesterday for similar complaints, had a CT of the abdomen and pelvic that noted she was constipated. She went home with mag citrate which she states she drank. Today's abdominal x-ray was noted for improvement of constipation. When patient realized she cannot get any narcotics she signed out AMA. I did not have a chance to talk to patient before she left but when I last evaluated her she was alert oriented x4 and able to make her own decisions Of note when patient was in the ED the day before yesterday family had called and spoke to the charge nurse requesting we stop giving patient any narcotics or any other medicines that can make her high. They state patient has a tendency to move from one hospital to the other looking for medicines to make her high. Rebecca Disclaimer: Rebecca Disclaimer: This electronic medical record was generated, in whole or in part, using a voice recognition dictation system. Departure Departure Impression: Primary Impression: Left against medical advice Additional Impressions: Chronic constipation Cyclical vomiting Chronic abdominal pain End stage renal disease Disposition: LEFT AGAINST MEDICAL ADVICE Condition: STABLE Referrals: YASMANY CHISHOLM (PCP) KELLEE ROWLAND [employer] December 31, 2020 12:29
== END 2020-12-31 12:01 | disposition left against medical advice (07) ==
LOC: ER 10:51
DX: K59.09 Other constipation (principal); R11.15 Cyclical vomiting syndrome unrelated to migraine; E10.22 Type 1 diabetes mellitus with diabetic chronic kidney disease; I12.0 Hypertensive chronic kidney disease with stage 5 chronic kidney disease or end stage renal disease; N18.6 End stage renal disease; Z99.2 Dependence on renal dialysis; Z90.49 Acquired absence of other specified parts of digestive tract
CPT/HCPCS: 74021; 96372; 99283; J0780

== ENCOUNTER 2021-10-28 18:59 | Emergency (ER) | payer OTHER ==
[~2021-10-28] VITALS: Ht 167.6 cm; Wt 56.8 kg
[~2021-10-28 18:59] MED LIST changes: +CYCL10TA19 PO; -CYCL10TA2 PO; -SCOP1PAT11 TD; +SCOP1PAT12 TD
--- NOTE | 2021-10-28 19:39 | PHYS DOC ---
Past Medical History Past Medical History: Cyclic Vomiting, Diabetes-Type I, Hypertension, Kidney Infection, Pancreatitis, Renal Failure, Other Additional Past Medical Histor: GASTROPERESIS,DIALYSIS,SM BOWEL OBSTRUCTION Past Surgical History: Cholecystectomy, , Tubal ligation, Other Additional Past Surgical Histo: FISTULA LEFT ARM, SHUNT RIGHT CHEST Smoking Status: Current Every Day Smoker Alcohol Use: None Drug Use: Marijuana General Adult EDM: Chief Complaint: GENERALIZED BODY ACHES HPI: HPI: 35 yo F PMH ESRD (TThSa), diabetes, hypertension, hyperlipidemia, marijuana use and history of narcotic dependence, presents to the ED brought by EMS from dialysis after patient passed out while receiving dialysis. Patient states prior to passing out bilateral upper chest pain described as " stinging pain," with associated shortness of breath. States she had 30 minutes left of her dialysis. Still makes urine. Review of Systems: Review of Systems: Constitutional: Denies fever or chills. [] Eyes: Denies change in visual acuity. [] HENT: Denies nasal congestion or sore throat. [] Respiratory: Denies cough or hemoptysis Cardiovascular: Denies palpitations or edema. [] GI: Denies abdominal pain, nausea, vomiting, bloody stools or diarrhea. [] : Denies dysuria or vaginal bleeding Musculoskeletal: Denies back pain or joint pain. [] Integument: Denies rash or diaphoresis Neurologic: Denies headache, focal weakness or sensory changes. [] Endocrine: Denies polyuria or polydipsia. [] Lymphatic: Denies swollen glands. [] Psychiatric: Denies depression or anxiety. [] Heart Score: C/O Chest Pain: Yes HEART Score for Chest Pain: HEART Score for Chest Pain Response (Comments) Value History Slighlty/Non-Suspicious 0 ECG Normal 0 Age < 45 0 Risk Factors >3 Risk Factors or Hx CAD 2 Troponin < Normal Limit 0 Total 2 Risk Factors: Risk Factors: DM, Current or recent (<one month) smoker, HTN, HLP, family history of CAD, obesity. Risk Scores: Score 0 - 3: 2.5% MACE over next 6 weeks - Discharge Home Score 4 - 6: 20.3% MACE over next 6 weeks - Admit for Clinical Observation Score 7 - 10: 72.7% MACE over next 6 weeks - Early Invasive Strategies Allergies: Allergies: Allergies Coded Allergies Type Severity Reaction Last Updated Verified ondansetron Allergy Severe edema 07/12/19 Yes ketorolac Allergy Intermediate hives 07/12/19 Yes morphine Allergy Intermediate hives 05/16/20 Yes Physical Exam: PE: Constitutional: Well developed, well nourished, no acute distress, non-toxic appearance, pt sleeping comfortably in her ed stretcher-in no distress, thin HENT: Normocephalic, atraumatic, Eyes: EOMI, conjunctiva normal, no discharge. Neck: Normal range of motion, supple, Cardiovascular: S1/2 present, regular rhythm Lungs & Thorax: Speaking in full sentences, bilateral equal chest rise, no tachypnea or increased work of breathing Abdomen: soft, no tenderness, Skin: Warm, dry, no erythema, no rash. [] Extremities: No tenderness, no cyanosis, no lower extremity edema, thrill LUE Neurologic: Alert and oriented X 3, normal motor function, normal sensory function, no focal deficits noted. [] Psychologic: Affect normal, judgement normal, mood normal. [] EKG: EK Sinus rhythm 71 bpm, no axis deviation, normal intervals, T wave inversion 1 and aVL, no ST elevation or ST depression Radiology/Procedures: Radiology/Procedures: IMAGING REPORT Signed PATIENT: JOSIAH CALZADA NACCOUNT: [id number] : 1985 LOCATION: ER AGE: 35 SEX: F EXAM STATUS: REG ER ORD. PHYSICIAN: MARINE LY DO REASON: chest and abdominal pain PROCEDURE: CT CHEST ABDOMEN PELVIS WO CT chest abdomen pelvis without contrast dated 10/28/2021. COMPARISON: None. Clinical indications: Pain. TECHNIQUE: Continues axial imaging the chest M pelvis performed without the administration of IV or oral contrast. One or more of the following individualized dose reduction techniques were utilized for this examination: 1. Automated exposure control 2. Adjustment of the mA and/or kV according to patient size 3. Use of iterative reconstruction technique FINDINGS: Heart size is within normal limits. No pericardial effusion. No mediastinal, hilar or axillary lymphadenopathy. Thyroid gland is unremarkable. Central airways are patent. Lungs are clear. No consolidation or pleural effusion. No pneumothorax. Minimal linear opacity in the right middle lobe, likely atelectasis. Solid abdominal viscera not well evaluated in the absence of contrast material. No apparent attenuation abnormality of the liver or spleen. Gallbladder jose gically absent. Pancreas, kidneys are unremarkable. No stone or hydronephrosis. There is a 2.7 cm low-density nodule at the left adrenal gland that shows Hounsfield value of 6. Unopacified GI tract normal in caliber and contour. No bowel wall thickening. No inflammatory stranding in the mesentery. The appendix is not clearly identified. No inflammatory changes in the right lower quadrant. No ascites or lymphadenopathy. There are atherosclerotic calcifications of the abdominal aorta and bilateral iliac vessels. Images of pelvis show mild wall thickening of the urinary bladder. Uterus and adnexa are unremarkable. No free fluid or pelvic lymphadenopathy. Bone window show no acute findings. IMPRESSION: 1. No acute abnormality of chest abdomen or pelvis. 2. Left adrenal adenoma. 3. Mild wall thickening of the urinary bladder, nonspecific. Consider acute or chronic cystitis. 4. Premature atherosclerotic calcifications of the abdominal aorta and bilateral iliac vessels. Electronically signed by: Masood Perez MD (10/28/2021 9:14 PM) KATE DICTATED and SIGNED BY: MASOOD PEREZ MD DATE: 10/28/[id number] 0 IMAGING REPORT Signed PATIENT: JOSIAH CALZADA NACCOUNT: [id number] : 1985 LOCATION: ER AGE: 35 SEX: F EXAM STATUS: REG ER ORD. PHYSICIAN: MARINE LY DO REASON: syncope PROCEDURE: PORTABLE CHEST 1V Single view chest dated 10/28/2021 9:14 PM: COMPARISON: 01/15/2021 Clinical Indication: Syncope. Findings: Single upright portable exam of the chest was performed. Heart size and mediastinal contours are within normal limits. Lungs are clear. No consolidation or pleural effusion. No pneumothorax. IMPRESSION: No acute radiographic abnormality. Electronically signed by: Masood Perez MD (10/28/2021 9:14 PM) KATE DICTATED and SIGNED BY: MASOOD PEREZ MD DATE: 10/28/[id number] 0 Impression: PERC rule for pulmonary embolus 0 criteria No need for further workup, as <2% chance of PE. If no criteria are positive and clinicians pre-test probability is <15%, PERC Rule criteria are satisfied. Course & Med Decision Making: Course & Med Decision Making Pertinent Labs and Imaging studies reviewed. (See chart for details) Concern for syncope and hypotension while in dialysis. RN spoke to dialysis clinic and patient 1.7 L of fluid removed. She passed out during dialysis and required 500 cc bolus. On arrival in ED patient told me she had chest pain that was stinging in nature but denies this to RN. Told her she was having generalized pain all over and did not feel well all day today. Patient's EKG with no ischemia. Chest x-ray with no infiltrates. Patient is PERC rule negative. High-sensitivity delta troponin with no significant change. Patient hemodynamically stable with no hypoxia or tachycardia. On reevaluation patient complains of generalized pain all over and her chest pain has resolved. Will discharge home with strict ED return precautions were given for increased work of breathing, chest pressure, syncope or neurologic deficits. Encouraged urgent outpatient follow-up with PMD for routine care and pain management for chronic pain management. Life-threatening processes were considered but are low suspicion at this time, given history, physical exam and ED workup. Pt was educated on all prescription medications and adverse effects. All patient's questions were answered and pt was stable at time of discharge. Life/limb-threatening differential includes but is not limited to, acute myocardial infarction, aortic dissection, congestive heart failure, esophageal injury including rupture, surgical abdomen, arrhythmia, cardiomyopathy, myocardi tis, pericarditis, peptic ulcer disease, pneumomediastinum, pneumonia, pneumothorax, pulmonary embolus, unstable angina, rib fracture, contusion, pericardial tamponade or effusion, traumatic injury including mediastinal hemorrhage or hematoma, or pulmonary contusion. I have spoken with the patient and/or caregivers. I explained the patient's condition, diagnoses and treatment plan based on the information available to me at this time. I have answered the patient and/or caregiver's questions and addressed any concerns. The patient and/or caregivers have a good understanding of patient's diagnosis, condition and treatment plan as can be expected at this point. Vital signs have been stable. Patient's condition is stable and appropriate for discharge from the emergency department. Patient will pursue further outpatient evaluation with primary care physician or other designated or consulting physician as outlined in the discharge instructions. The patient and/or caregivers are agreeable to this plan of care and follow-up instructions have been explained in detail. The patient and/or caregivers have received these instructions in written form and have expressed an understanding of the discharge instructions. The patient and/or caregivers are aware that any significant change of condition or worsening of symptoms should prompt immediate return to this or the closest emergency department or call to [email or web address] Fernandez Disclaimer: Rebecca Disclaimer: This electronic medical record was generated, in whole or in part, using a voice recognition dictation system. Departure Departure Impression: Primary Impression: Chest pain Additional Impression: Chronic pain Disposition: HOME / SELF CARE / HOMELESS Condition: STABLE Referrals: YASMANY CHISHOLM (PCP) follow up in 1-2 days for re-evaluation Patient Instructions: Chest Pain (Nonspecific), Chronic Pain Management Additional Instructions: FOLLOW UP WITH PAIN MANAGEMENT: FOR DEFINITIVE MANAGEMENT [facility] [address] [address] EMERGENCY DEPARTMENT GENERAL DISCHARGE INSTRUCTIONS Thank you for coming to [facility] Emergency Department (ED) today and trusting us with you care. We trust that you had a positive experience in our Emergency Department. If you wish to speak to the department management, you may call the Director at [phone]. YOUR FOLLOW UP INSTRUCTIONS ARE FOLLOWS: 1. Do you have a private Doctor? If you do not have a private doctor, please ask for a resource list of physicians or clinics that may be able to assist you with follow up care. 2. The Emergency Physicain has interpreted your x-rays. The X-Ray specialist will also review them. If there is a change in the findings, you will be notified in 48 hours when at all possible. 3. A lab test or culture has been done, your results will be reviewed and you will be notified if you need a change in treatment. ADDITIONAL INSTRUCTIONS AND INFORMATION: 1. Your care today has been supervised by a physician who is specially trained in emergency care. Many problems require more than one evaluation for a complete diagnosis and treatment. We recommend that you schedule your follow up appointment as recommended to ensure complete treatment of you illness or injury. If you are unable to obtain follow up care and continue to have a problem, or if your condition worsens, we recommend that you return to the ED. 2. We are not able to safely determine your condition over the phone nor are we able to give sound medical advice over the phone. For these safety reasons, if you call for medical advice we will ask you to come to the ED for further evaluation. 3. If you have any questions regarding these discharge instructions please call the ED at [phone]. SAFETY INFORMATION: In the interest of safety, wellness, and injury prevention; we encourage you to wear your sealbelt, if you smoke; quite smoking, and we encourage family to use a protective helmet for bicycling and other sporting events that present an increased risk for head injury. IF YOUR SYMPTOMS WORSEN OR NEW SYMPTOMS DEVELOP, OR YOU HAVE CONCERNS ABOUT YOUR CONDITION; OR IF YOUR CONDITION WORSENS WHILE YOU ARE WAITING FOR YOUR FOLLOW UP APPOINTMENT; EITHER CONTACT YOUR PRIMARY CARE DOCTOR, THE PHYSICIAN WHOSE NAME AND NUMBER YOU WERE GIVEN, OR RETURN TO THE ED IMMEDIATELY. MARINE ABDALLA DO Oct 28, 2021 19:39
[2021-10-28 20:02] LABS: BARBITURATES NEG (NEG); BENZODIAZEPINES NEG (NEG); CANNABINOIDS POS (NEG); COCAINE NEG (NEG); METHADONE NEG (NEG); OPIATES NEG (NEG); PHENCYCLIDINE NEG (NEG)
[2021-10-28 20:06] LABS: AMPHETAMINE/METHAMPHETAMINE NEG (NEG)
[2021-10-28 20:08] LABS: BASO # 0.1 x10^3/uL (0.0-0.2); BASO % 1 % (0-3); EOS # 0.1 x10^3/uL (0.0-0.7); EOS % 1 % (0-3); HEMOGLOBIN 12.5 g/dL (12.0-15.5); LYMPH # 2.6 x10^3/uL (1.0-4.8); LYMPH % 21 % (24-48); MEAN CORPUSCULAR HEMOGLOBIN 31 pg (25-35); MEAN CORPUSCULAR HGB CONC 34 g/dL (31-37); MEAN CORPUSCULAR VOLUME 93 fL (79-100); MONO # 0.8 x10^3/uL (0.0-1.1); MONO % 6 % (0-9); NEUT # 8.6 x10^3/uL (1.8-7.7); NEUT % 71 % (31-73); PLATELET COUNT 214 x10^3/uL (140-400); RED CELL DISTRIBUTION WIDTH 13.1 % (11.5-14.5); WHITE BLOOD COUNT 12.1 x10^3/uL (4.0-11.0)
[2021-10-28 20:11] LABS: CALCIUM 8.5 mg/dL (8.5-10.1); CREATININE 3.4 mg/dL (0.6-1.0); GFR 18.8; POTASSIUM 3.3 mmol/L (3.5-5.1)
[2021-10-28 20:13] LABS: PREG TEST PT QUAL NEGATIVE (NEG)
[2021-10-28 20:17] LABS: ALBUMIN 3.6 g/dL (3.4-5.0); ALBUMIN/GLOBULIN RATIO 0.8 (1.0-1.7); MAGNESIUM 1.8 mg/dL (1.8-2.4); TOTAL BILIRUBIN 0.3 mg/dL (0.2-1.0)
[2021-10-28] MEDS ORDERED: CONTRAST GIVEN. MC PRN (20:45)
[2021-10-28] MEDS ORDERED: IV NORMAL SALINE 500ML BAG 500 ML IV ONE (21:00)
[2021-10-28] MEDS ORDERED: HYDROmorphone 2 MG/ML INJ. IM ONE (21:00)
[2021-10-28] MEDS ORDERED: IOHEXOL 350 MG/ML 100 ML VIAL. IV ONE (21:00)
[2021-10-28] MEDS ORDERED: HYDROmorphone 2 MG/ML INJ. IVP ONE (21:00)
--- NOTE | 2021-10-28 21:16 | RAD ---
CT chest abdomen pelvis without contrast dated 10/28/2021. COMPARISON: None. Clinical indications: Pain. TECHNIQUE: Continues axial imaging the chest M pelvis performed without the administration of IV or oral contras t. One or more of the following individualized dose reduction techniques were utilized for this examinat ion: 1. Automated exposure control 2. Adjustment of the mA and/or kV according to patient size 3. Use of iterative reconstruction technique FINDINGS: Heart size is within normal limits. No pericardial effusion. No mediastinal, hilar or axillary lympha denopathy. Thyroid gland is unremarkable. Central airways are patent. Lungs are clear. No consolidation or pleural effusion. No pneumothorax. M inimal linear opacity in the right middle lobe, likely atelectasis. Solid abdominal viscera not well evaluated in the absence of contrast material. No apparent attenuati on abnormality of the liver or spleen. Gallbladder surgically absent. Pancreas, kidneys are unremarka ble. No stone or hydronephrosis. There is a 2.7 cm low-density nodule at the left adrenal gland that shows Hounsfield value of 6. Unopacified GI tract normal in caliber and contour. No bowel wall thickening. No inflammatory strandi ng in the mesentery. The appendix is not clearly identified. No inflammatory changes in the right low er quadrant. No ascites or lymphadenopathy. There are atherosclerotic calcifications of the abdominal aorta and bilateral iliac vessels. Images of pelvis show mild wall thickening of the urinary bladder. Uterus and adnexa are unremarkable . No free fluid or pelvic lymphadenopathy. Bone window show no acute findings. IMPRESSION: 1. No acute abnormality of chest abdomen or pelvis. 2. Left adrenal adenoma. 3. Mild wall thickening of the urinary bladder, nonspecific. Consider acute or chronic cystitis. 4. Premature atherosclerotic calcifications of the abdominal aorta and bilateral iliac vessels. Electronically signed by: Masood Perez MD (10/28/2021 9:14 PM) [facility]
--- NOTE | 2021-10-28 21:17 | RAD ---
Single view chest dated 10/28/2021 9:14 PM: COMPARISON: 01/15/2021 Clinical Indication: Syncope. Findings: Single upright portable exam of the chest was performed. Heart size and mediastinal contours are with in normal limits. Lungs are clear. No consolidation or pleural effusion. No pneumothorax. IMPRESSION: No acute radiographic abnormality. Electronically signed by: Masood Perez MD (10/28/2021 9:14 PM) KATE
[2021-10-29] MEDS ORDERED: ACETAMINOPHEN 325 MG TABLET. PO ONE (00:30)
[2021-10-29 01:02] VITALS: BP 119/72
--- NOTE | 2021-10-29 07:39 | EKG ---
[facility] [address] [place] [address] Test Date: 2021-10-28 Test Time: 19:41:23 Pat Name: JOSIAH CALZADA Department: Room: Gender: F Scraper Tender: : 1985 Requested By: MARINE LY Order Number: [id number] Reading MD: Measurements Intervals [place] Rate: 71 P: 60 KS: 168 QRS: 56 QRSD: 86 T: 91 QT: 408 QTc: 443 Interpretive Statements SINUS RHYTHM LEFT ATRIAL ABNORMALITY ST & T ABNORMALITY, CONSIDER RECENT INFERIOR MYOCARDIAL OR PERICARDIAL DAMAGE ABNORMAL ECG RI6.02 No previous ECG available for comparison
== END 2021-10-29 01:04 | disposition home or self-care (01) ==
LOC: ER 18:59
DX: R07.89 Other chest pain (principal); G89.29 Other chronic pain; R06.02 Shortness of breath; E10.22 Type 1 diabetes mellitus with diabetic chronic kidney disease; I12.0 Hypertensive chronic kidney disease with stage 5 chronic kidney disease or end stage renal disease; N18.6 End stage renal disease; Z99.2 Dependence on renal dialysis; F17.200 Nicotine dependence, unspecified, uncomplicated; Z88.5 Allergy status to narcotic agent; Z88.6 Allergy status to analgesic agent
CPT/HCPCS: 36415; 71045; 71250; 74176; 80053; 80307; 83690; 83735; 83880; 84484; 84703; 85025; 93005; 96372; 99285; J1170